=== PATIENT | male | born 1935 | race Caucasian/White ===

== ENCOUNTER 2017-04-09 20:09 | Inpatient (IN) | payer MEDICARE ==
[2017-04-09 20:52] VITALS: BMI 18.6
[2017-04-09] MEDS: Metoprolol Succinate 50 mg XL Tab PO SCH (22:13)
[2017-04-09] MEDS ORDERED: Influenza Vaccine 60 mcg/0.5 mL SYR (4YR UP) IM ONE (23:48)
[2017-04-09] MEDS ORDERED: Pneumococcal 23-Valent Vaccine IM ONE (23:48)
[2017-04-10] MEDS ORDERED: Pantoprazole 40 mg EC Tab PO SCH (06:00)
[2017-04-10] MEDS: Pantoprazole 40 mg EC Tab PO SCH (06:19)
[2017-04-10] MEDS: Magnesium Oxide 400 mg Tab UD PO SCH ×3 (09:38→18:11)
[2017-04-10] MEDS ORDERED: cefTRIAXone 1 gm 1 GM/100 ML BAG IVPB SCH (10:00)
[2017-04-10] MEDS: Metoprolol Succinate 50 mg XL Tab PO SCH (21:29)
[2017-04-11] MEDS: Pantoprazole 40 mg EC Tab PO SCH (05:03)
[2017-04-11] MEDS: cefTRIAXone 1 gm 1 GM/100 ML BAG IVPB SCH (05:04)
[2017-04-11 09:21] LABS: BASO # 0.02 K/mm3 (0.0-2.0); BASO % 0.4 % (0.0-3.0); EOS # 0.4 (0.0-0.7); EOS % 7.4 % (1.5-5.0); GRAN # 3.51 (1.4-6.5); GRAN % 64.6 % (50.0-68.0); HEMATOCRIT 27.2 % (42.0-52.0); LYMPH # 1.1 (1.2-3.4); LYMPH % 20.4 % (22.0-35.0); MEAN CELL VOLUME 100.7 fl (80.0-105.0); MEAN CORPUSCULAR HGB CONC 32.7 g/dl (31.0-37.0); MONO # 0.4 (0.1-0.6); MONO % 7.2 % (1.0-6.0); RED CELL DISTRIBUTION WIDTH 13.3 % (11.5-14.5); WHITE BLOOD COUNT 5.4 10^3/ul (4.5-11.0)
[2017-04-11 09:26] LABS: INR 1.88 (0.93-1.08)
[2017-04-11 09:31] LABS: ALB/GLOB RATIO 0.8 (1.1-1.8); ALKALINE PHOSPHATASE 83 U/L (38-126); ALT/SGPT 31 U/L (7-56); AST/SGOT 41 U/L (17-59); BILIRUBIN,TOTAL 0.4 mg/dL (0.2-1.3); BLOOD UREA NITROGEN 9 mg/dL (7-21); CALCIUM 8.6 mg/dL (8.4-10.5); CARBON DIOXIDE 24 mmol/L (21-33); CHLORIDE 106 mmol/L (98-107); GFR AFRICAN-AMERICAN > 60; GLUCOSE,RANDOM 182 mg/dL (70-110); SODIUM 136 mmol/L (132-148); TOTAL PROTEIN 6.7 g/dL (5.8-8.3)
--- NOTE | 2017-04-11 09:41 | CP.PCM.CON ---
<Rashida Nash - Last Filed: 04/11/17 09:55> History of Present Illness - History of Present Illness History of Present Illness: 81 y/o male with PMHx of HTN, COPD, HLD and gastritis seen at bedside for elongated dystrophic toenails. Pt states he is in the hospital because he had swelling in his right leg and found out he had a clot in his veins. Pt states he was not having any pain in the right leg but had swelling for multiple weeks , and his daughter brought him in. Pt denies any discomfort now and says the swelling is improving. Pt states the toenails are somewhat painful, mainly when he has shoes on that press against them. Pt denies F/C/N/V/CP/SOB. PSH: denies All: NKDA Social: 1 pack cigs/day; daily EtOH drinker; denies illicit drug use Review of Systems - Review of Systems All systems: reviewed and no additional remarkable complaints except (per HPI) Past Patient History - Infectious Disease Hx of Infectious Diseases: None - Tetanus Immunizations Tetanus Immunization: Unknown - Past Social History Smoking Status: Heavy Smoker > 10 Cigarettes Daily - CARDIAC Hx Hypertension: Yes - PULMONARY Hx Chronic Obstructive Pulmonary Disease (COPD): Yes - NEUROLOGICAL Hx Neurological Disorder: No - HEENT Hx Cataracts: Yes - RENAL Hx Chronic Kidney Disease: No - ENDOCRINE/METABOLIC Hx Endocrine Disorders: No - HEMATOLOGICAL/ONCOLOGICAL Hx Blood Disorders: No Hx Blood Transfusions: No Hx Blood Transfusion Reaction: No - INTEGUMENTARY Hx Dermatological Problems: No - MUSCULOSKELETAL/RHEUMATOLOGICAL Hx Falls: No - GASTROINTESTINAL Hx Gastrointestinal Disorders: No - GENITOURINARY/GYNECOLOGICAL Hx Prostate Problems: Yes - PSYCHIATRIC Hx Depression: Yes Hx Substance Use: No - SURGICAL HISTORY Hx Surgeries: Yes (Prostate) - ANESTHESIA Hx Anesthesia Reactions: No Hx Malignant Hyperthermia: No Meds Allergies/Adverse Reactions: Allergies Allergy/AdvReac Type Severity Reaction Status Date / Time No Known Allergies Allergy Verified 04/09/17 20:46 - Medications Medications: Current Medications Atorvastatin Calcium (Lipitor) 20 mg PO DIN [facility] Last Admin: 04/10/17 18:11 Dose: 20 mg Azithromycin (Zithromax) 500 mg PO DAILY [facility] PRN Reason: Protocol Last Admin: 04/10/17 11:51 Dose: 500 mg Chlordiazepoxide (Librium) 10 mg PO Q8H PRN; Protocol PRN Reason: Anxiety Famotidine (Pepcid) 20 mg PO DAILY [facility] Last Admin: 04/10/17 09:39 Dose: 20 mg Ceftriaxone Sodium (Rocephin 1 Gram Ivpb) 1 gm in 100 mls @ 200 mls/hr IVPB 0600 [facility] PRN Reason: Protocol Last Admin: 04/11/17 05:04 Dose: 200 mls/hr Lisinopril (Zestril) 10 mg PO QAM [facility] Last Admin: 04/10/17 09:40 Dose: 10 mg Magnesium Oxide (Mag-Ox) 400 mg PO TID [facility] Last Admin: 04/10/17 18:11 Dose: 400 mg Metoprolol Succinate (Toprol Xl) 50 mg PO HS [facility] Last Admin: 04/10/17 21:29 Dose: 50 mg Nicotine (Nicoderm Cq) 1 patch TD DAILY [facility] Last Admin: 04/10/17 09:38 Dose: 1 patch Pantoprazole Sodium (Protonix Ec Tab) 40 mg PO 0600 [facility] Last Admin: 04/11/17 05:03 Dose: 40 mg Thiamine HCl (Vitamin B1 Tab) 100 mg PO DAILY [facility] Last Admin: 04/10/17 09:40 Dose: 100 mg Warfarin Sodium (Coumadin) 10 mg PO 1800 [facility] PRN Reason: Protocol Last Admin: 04/10/17 18:11 Dose: 10 mg Physical Exam - Constitutional Appears: Well, Non-toxic, No Acute Distress - Extremities Exam Additional comments: Lower extremity focused examination: Vasc: DP/PT pulses palpable 2/4 B/L. Temperature gradient warm to warm on R, warm to cool on L. CFT < 3 sec to all digits. +2 pitting edema noted to RLE; no edema noted to LLE Derm: Elongated dystrophic toenails x 10. No open lesions, no maceration, no erythema. Neuro: Protective sensation grossly intact MSK: Mild tenderness noted on palpation of toenails. No tenderness elicited on RLE calf squeeze or edema assessment. - Neurological Exam Neurological exam: Alert, Oriented x3 - Psychiatric Exam Psychiatric exam: Normal Affect, Normal Mood Results - Vital Signs Recent Vital Signs: Last Vital Signs Temp 97.4 F L 04/10/17 15:50 Pulse 74 04/10/17 21:29 Resp 20 04/10/17 15:50 BP 147/80 04/10/17 21:29 Pulse Ox 93 L 04/10/17 15:50 - Labs Result Diagrams: 04/11/17 09:00 04/11/17 09:00 Labs: Laboratory Results - last 24 hr 04/11/17 04/11/17 04/11/17 09:00 09:00 09:00 WBC 5.4 D RBC 2.70 L Hgb 8.9 L Hct 27.2 L MCV 100.7 MCH 33.0 MCHC 32.7 RDW 13.3 Plt Count 109 L MPV 10.0 Gran % 64.6 Lymph % (Auto) 20.4 L [place] % (Auto) 7.2 H Eos % (Auto) 7.4 H Baso % (Auto) 0.4 Gran # 3.51 Lymph # 1.1 L [place] # 0.4 Eos # 0.4 Baso # 0.02 PT 20.9 H INR 1.88 H Sodium 136 Potassium 4.0 Chloride 106 Carbon Dioxide 24 Anion Gap 10 BUN 9 Creatinine 1.0 Est GFR ( Amer) > 60 Est GFR (Non-Af Amer) > 60 Random Glucose 182 H Calcium 8.6 Total Bilirubin 0.4 AST 41 ALT 31 Alkaline Phosphatase 83 Total Protein 6.7 Albumin 3.0 Globulin 3.8 Albumin/Globulin Ratio 0.8 L Assessment & Plan - Assessment and Plan (Free Text) Assessment: 81 y/o male with PMHx of COPD, HTN, HLD, gastritis and currently in house for DVT on blood thinners seen at bedside for elongated dystrophic mildly painful toenails Plan: Pt seen and evaluated at bedside with attending Dr. Pham Labs and vitals reviewed- afebrile, WBC 5.4 Aseptic debridement of elongated dystrophic toenails with sterile nippers Pt tolerated procedure without incident Podiatry to sign off at this time Please re-consult again as needed Thank you for this consult <Van Pham - Last Filed: 04/15/17 11:24> Results - Vital Signs Recent Vital Signs: Last Vital Signs Temp 97.9 F 04/14/17 06:00 Pulse 76 04/14/17 06:00 Resp 16 04/14/17 06:00 BP 152/71 H 04/14/17 06:00 Pulse Ox 98 04/14/17 06:00 - Labs Result Diagrams: 04/12/17 06:00 04/11/17 09:00 Attending/Attestation - Attestation I have personally seen and examined this patient.: Yes I have fully participated in the care of the patient.: Yes I have reviewed all pertinent clinical information: Yes
[2017-04-11] MEDS: Magnesium Oxide 400 mg Tab UD PO SCH ×3 (10:23→17:03)
[2017-04-11] MEDS: Metoprolol Succinate 50 mg XL Tab PO SCH (21:40)
--- NOTE | 2017-04-11 23:23 | PN ---
DATE: SUBJECTIVE: The patient is an 81-year-old, seen and examined, lying in bed, seems to be comfortable. No nausea or vomiting. No diarrhea. Eating and tolerating. PHYSICAL EXAMINATION VITAL SIGNS: The patient is afebrile, pulse 72, respirations 18 and blood pressure 144/77. LUNGS: Bilateral fair airflow. No rhonchi or crackle. HEART: S1 and S2 audible. ABDOMEN: Soft and nontender. No rebound. No guarding. NEUROLOGIC: The patient is awake, alert, oriented, and communicative. Right leg swelling and redness has significantly improved. LABORATORY DATA: WBC is 5.4, hemoglobin 8.9, hematocrit 27 and platelet is 109. PT 20.9 and INR 1.88. Chemistry; sodium 136, potassium 4, chloride 106, CO2 of 24, BUN 9, creatinine 1 and blood sugar of 182. ASSESSMENT: 1. Right leg cellulitis. 2. Right leg iliofemoral deep vein thrombosis. 3. Anemia. 4. Thrombocytopenia. 5. Hypertension. PLAN: Currently, the patient is on Coumadin as per his daughter's request and she did not like any new agents like Eliquis or Pradaxa. We will continue him on Nicoderm patch and continue on p.o. Protonix. He is on IV antibiotics we will continue that and we will follow up with PT/INR in a.m. Aquilino Garcia MD
[2017-04-12] MEDS: cefTRIAXone 1 gm 1 GM/100 ML BAG IVPB SCH (05:52)
[2017-04-12] MEDS: Pantoprazole 40 mg EC Tab PO SCH (05:52)
[2017-04-12 07:11] LABS: BASO # 0.02 K/mm3 (0.0-2.0); BASO % 0.3 % (0.0-3.0); EOS # 0.4 (0.0-0.7); EOS % 7.4 % (1.5-5.0); GRAN # 3.31 (1.4-6.5); GRAN % 56.6 % (50.0-68.0); HEMATOCRIT 25.5 % (42.0-52.0); LYMPH # 1.4 (1.2-3.4); LYMPH % 23.5 % (22.0-35.0); MEAN CELL VOLUME 99.2 fl (80.0-105.0); MEAN CORPUSCULAR HEMOGLOBIN 32.7 pg (25.0-35.0); MEAN CORPUSCULAR HGB CONC 32.9 g/dl (31.0-37.0); MEAN PLATELET VOLUME 9.9 fl (7.0-11.0); MONO # 0.7 (0.1-0.6); MONO % 12.2 % (1.0-6.0); RED CELL DISTRIBUTION WIDTH 13.5 % (11.5-14.5); WHITE BLOOD COUNT 5.8 10^3/ul (4.5-11.0)
[2017-04-12 07:12] LABS: IRON 46 ug/dL (45-180)
[2017-04-12 07:21] LABS: INR 2.67 (0.93-1.08)
[2017-04-12] MEDS: Magnesium Oxide 400 mg Tab UD PO SCH ×3 (10:00→17:14)
--- NOTE | 2017-04-12 21:27 | CP.PCM.PN ---
Subjective - Date & Time of Evaluation Date of Evaluation: 04/12/17 Time of Evaluation: 10:00 - Subjective Subjective: DATE: 04/12/2017 HISTORY OF PRESENT ILLNESS: Mr. Espitia is an 81-year-old male admitted to the hospital with right leg DVT. He has history of heavy smoking and alcohol abuse. He is noncompliant. He is currently on Eliquis 5 mg p.o. b.i.d. He also has left upper lobe nodule, which is stable at 4.5 cm. He is in rehab for deconditioning and gait improvement. Pain right leg, swelling decreased. PAST MEDICAL HISTORY: Alcohol abuse, heavy smoker, COPD, BPH, and depression. PAST SURGICAL HISTORY: Prostatectomy. ALLERGIES: NO KNOWN DRUG ALLERGIES. REVIEW OF SYSTEMS: As per HPI. Rest of 12-point review of systems reviewed and negative. MEDICATIONS: B12 1 mg daily, Coumadin 4 mg daily, thiamine 100 mg daily, Protonix 40 mg daily, nicotine patch, metoprolol 50 mg p.o. at bedtime, lisinopril 10 mg daily, Pepcid 20 mg daily, Zithromax 500 mg p.o. daily, and Lipitor 20 mg daily. PHYSICAL EXAMINATION GENERAL: Comfortable in bed, in no acute distress. VITAL SIGNS: reviewed. HEENT: Normal. CHEST: Air entry present, equal bilaterally. No added sounds. CARDIOVASCULAR: S1 and S2 normal. No murmur. No gallop. ABDOMEN: Soft and nontender. No hepatosplenomegaly. EXTREMITIES: No edema. Right leg swelling is present. CENTRAL NERVOUS SYSTEM: Alert and oriented x3. No focal, sensory, or motor deficit. ASSESSMENT: Right lower extremity deep venous thrombosis, hypercoagulable state, alcohol abuse, and hypertension. PLAN: He is currently on Coumadin. INR therapeutic. Coumadin 4 mg daily. Great improvement, physical therapy on going. Hypercoagulable workup will be ordered. He has pneumonia, right middle lobe. He is currently on Zithromax. He is currently also on B12 and pyridoxine. Thank you Dr. Garcia for allowing us to participate in his care. Maria Esther Art MD Objective - Vital Signs/Intake and Output Vital Signs (last 24 hours): Temp Pulse Resp BP Pulse Ox 97.8 F 74 18 157/77 H 96 04/12/17 16:13 04/12/17 16:13 04/12/17 16:13 04/12/17 16:13 04/12/17 16:13 - Medications Medications: Current Medications Atorvastatin Calcium (Lipitor) 20 mg PO DIN [facility] Last Admin: 04/12/17 17:14 Dose: 20 mg Azithromycin (Zithromax) 500 mg PO DAILY [facility] PRN Reason: Protocol Last Admin: 04/12/17 10:01 Dose: 500 mg Famotidine (Pepcid) 20 mg PO DAILY [facility] Last Admin: 04/12/17 10:00 Dose: 20 mg Ceftriaxone Sodium (Rocephin 1 Gram Ivpb) 1 gm in 100 mls @ 200 mls/hr IVPB 0600 [facility] PRN Reason: Protocol Last Admin: 04/12/17 05:52 Dose: 200 mls/hr Lisinopril (Zestril) 10 mg PO QAM [facility] Last Admin: 04/12/17 10:01 Dose: 10 mg Magnesium Oxide (Mag-Ox) 400 mg PO TID [facility] Last Admin: 04/12/17 17:14 Dose: 400 mg Metoprolol Succinate (Toprol Xl) 50 mg PO HS [facility] Last Admin: 04/11/17 21:40 Dose: 50 mg Nicotine (Nicoderm Cq) 1 patch TD DAILY [facility] Last Admin: 04/12/17 10:00 Dose: 1 patch Pantoprazole Sodium (Protonix Ec Tab) 40 mg PO 0600 [facility] Last Admin: 04/12/17 05:52 Dose: 40 mg Thiamine HCl (Vitamin B1 Tab) 100 mg PO DAILY [facility] Last Admin: 04/12/17 10:00 Dose: 100 mg Warfarin Sodium (Coumadin) 4 mg PO 1800 [facility] PRN Reason: Protocol Last Admin: 04/12/17 17:14 Dose: 4 mg - Labs Labs: 04/12/17 06:00 04/11/17 09:00 PT 30.0 SECONDS (9.4-12.5) H 04/12/17 06:00 INR 2.67 (0.93-1.08) H 04/12/17 06:00
[2017-04-12] MEDS: Metoprolol Succinate 50 mg XL Tab PO SCH (21:47)
[2017-04-13] MEDS: Pantoprazole 40 mg EC Tab PO SCH (05:21)
[2017-04-13] MEDS: cefTRIAXone 1 gm 1 GM/100 ML BAG IVPB SCH (05:21)
--- NOTE | 2017-04-13 08:14 | HP ---
HISTORY OF PRESENT ILLNESS: The patient is an 81-year-old, transferred to TCU to finish his course of antibiotics, monitor his Coumadin level. The patient was admitted because of right leg swelling, redness. He was sent for leg Doppler, was found to have DVT, extensive iliofemoral DVT, so he was admitted for anticoagulation and antibiotic. PAST MEDICAL HISTORY: Hypertension, chronic alcohol abuse and active smoker. ALLERGIES: NOT ALLERGIC TO ANY MEDICATION. MEDICATIONS AT HOME: He is on omeprazole 40 mg daily, metoprolol 50 mg at bedtime, lisinopril 10 mg daily. SOCIAL HISTORY: He is single. Heavy smoker and drinker. He drinks half to one bottle of wine everyday. REVIEW OF SYSTEMS: Generalized weakness. Right leg swelling seems to be improving. PHYSICAL EXAMINATION: VITAL SIGNS: He is afebrile, pulse 71, respirations 20, blood pressure 122/75. LUNGS: Bilateral good airflow. No rhonchi or crackles. HEART: S1 and S2 audible. ABDOMEN: Soft, nontender. No rebound, and no guarding. NEUROLOGIC: He is awake, alert, oriented, and communicative. EXTREMITIES: Right leg swelling has significantly improved. Edema seems to be improving. ASSESSMENT: 1. Right leg deep vein thrombosis. 2. Right leg cellulitis. 3. History of chronic low back pain in the family, daughter is on Coumadin. 4. Hypertension. 5. Active smoker. PLAN: We will follow up CBC, CMP and PT/INR in the a.m. Encourage ambulation. We will follow up. Aquilino Garcia MD
[2017-04-13] MEDS: Magnesium Oxide 400 mg Tab UD PO SCH ×4 (10:03→17:43)
--- NOTE | 2017-04-13 14:51 | PN ---
DATE: SUBJECTIVE: The patient is 81 years old, seen and examined, lying in bed, seems to be comfortable. No nausea or vomiting. No diarrhea. No fever. No chills. No cough, congestion. PHYSICAL EXAMINATION VITAL SIGNS: He is afebrile, pulse 77, respirations 18, blood pressure 148/71. LUNGS: Bilateral fair airflow. No rhonchi or crackle. HEART: S1 and S2 audible. ABDOMEN: Soft, nontender. No rebound, no guarding. NEUROLOGICAL: He is awake, alert, oriented, and communicative. EXTREMITIES: Bilateral leg edema is significantly improved. redness has improved. ASSESSMENT: 1. Right leg iliofemoral deep vein thrombosis. 2. Right leg cellulitis. 3. Hypertension. 4. Alcohol abuse. PLAN: We will continue patient on 4 mg of Coumadin and I will follow up PT/INR in a.m. Discharge plan for a.m. We will finish his course of antibiotic by a.m. I will follow up in office in a week. Aquilino Garcia MD
[2017-04-13 16:50] VITALS: O2SAT 98
[2017-04-14] MEDS: cefTRIAXone 1 gm 1 GM/100 ML BAG IVPB SCH (05:54)
[2017-04-14] MEDS: Pantoprazole 40 mg EC Tab PO SCH (05:56)
[2017-04-14 06:36] VITALS: BP 152/71; PULSE 76; RESP 16; TEMP 97.9
[2017-04-14] MEDS ORDERED: Metoprolol Succinate 50 mg XL Tab PO SCH ×2 (08:00→10:00)
[2017-04-14] MEDS: Magnesium Oxide 400 mg Tab UD PO SCH ×2 (10:03→13:09)
--- NOTE | 2017-04-15 00:38 | DS ---
HISTORY OF PRESENT ILLNESS: The patient is an 81-year-old, seen and examined, doing well, anxious to go home. He was initially admitted because of right leg swelling. He was found to have extensive DVT in iliofemoral area, has been on Coumadin and also was found to have bilateral infiltrates, was given IV antibiotic, did well, being discharged home today. PHYSICAL EXAMINATION: GENERAL: Awake, alert, oriented, and communicative. VITAL SIGNS: He is afebrile. Pulse 76, respiration 16, and blood pressure 152/71. LUNGS: Bilateral fair air flow. No rhonchi or crackles. HEART: S1, S2 audible. ABDOMEN: Soft, nontender. No rebound. No guarding. NEUROLOGIC: He is awake, alert, oriented, and communicative. LABORATORY DATA: We do not have today's PT/INR. He is advised to follow up in the office on Thursday. We will follow up his PT/INR. ASSESSMENT: 1. Right leg occlusive iliofemoral deep vein thrombosis. 2. Hypertension. 3. Hyperlipidemia. 4. History of alcohol abuse. PLAN: The patient is being discharged home on 4 mg of Coumadin daily. He will continue all his medication as prior to admission. Aquilino Garcia MD
== END 2017-04-14 14:11 | disposition home or self-care (01) | DRG 300 ==
LOC: TRCU 20:09
PROVIDERS: ADMIT Internal Medicine; ATTEND Internal Medicine
PROC: 0HBRXZZ Excision of Toe Nail, External Approach (ICD-10-PCS; principal; 2017-04-11)
PROC: 0HBRXZZ Excision of Toe Nail, External Approach (ICD-10-PCS; 2017-04-11)
PROC: 0HBRXZZ Excision of Toe Nail, External Approach (ICD-10-PCS; 2017-04-11)
PROC: 0HBRXZZ Excision of Toe Nail, External Approach (ICD-10-PCS; 2017-04-11)
PROC: 0HBRXZZ Excision of Toe Nail, External Approach (ICD-10-PCS; 2017-04-11)
PROC: 0HBRXZZ Excision of Toe Nail, External Approach (ICD-10-PCS; 2017-04-11)
PROC: 0HBRXZZ Excision of Toe Nail, External Approach (ICD-10-PCS; 2017-04-11)
PROC: 0HBRXZZ Excision of Toe Nail, External Approach (ICD-10-PCS; 2017-04-11)
PROC: 0HBRXZZ Excision of Toe Nail, External Approach (ICD-10-PCS; 2017-04-11)
PROC: 0HBRXZZ Excision of Toe Nail, External Approach (ICD-10-PCS; 2017-04-11)
DX: I82.421 Acute embolism and thrombosis of right iliac vein (principal); L03.115 Cellulitis of right lower limb; D68.59 Other primary thrombophilia; D69.6 Thrombocytopenia, unspecified; J44.9 Chronic obstructive pulmonary disease, unspecified; E78.5 Hyperlipidemia, unspecified; I10 Essential (primary) hypertension; F10.10 Alcohol abuse, uncomplicated; F17.200 Nicotine dependence, unspecified, uncomplicated; N40.0 Benign prostatic hyperplasia without lower urinary tract symptoms; R91.1 Solitary pulmonary nodule; D64.9 Anemia, unspecified; Z79.01 Long term (current) use of anticoagulants; Z79.899 Other long term (current) drug therapy; Z91.19 Patient's noncompliance with other medical treatment and regimen; H26.9 Unspecified cataract; F32.89 Other specified depressive episodes; L60.3 Nail dystrophy; Z90.79 Acquired absence of other genital organ(s)

== ENCOUNTER 2018-01-04 13:49 | Inpatient (IN) | payer MEDICARE ==
[2018-01-04 14:16] VITALS: BMI 17.2
--- NOTE | 2018-01-04 14:50 | ED PDOC ---
Arrival/HPI - General Chief Complaint: Lower Extremity Problem/Injury Time Seen by Provider: 01/04/18 14:20 Historian: Patient - History of Present Illness Narrative History of Present Illness (Text): 01/04/18 14:46 Patient is a 82 year old male with a past medical history of hypertension, COPD , gastritis and hx of DVT (04/2017 - on coumadin) presenting with 2 week hx of progressive swelling/erythema of right lower extremity. Patient developed clear , liquid filled blisters approximately the size of a quarter on the lower portion of his leg yesterday. He decided to come to the emergency room today after his leg started sweeping fluid this morning. He was started on coumadin in April 2017 for a first time lower extremity DVT. He reports taking his medication every day but has not had an INR check for 2 months. He has no other complaints today. Denies fevers, chills, nausea, vomiting, chest pain, shortness of breath, dyspnea on exertion, numbness or tingling. PMD: Dr. Garcia Time/Duration: < week (2 weeks) Symptom Onset: Gradual Symptom Course: Worsening Quality: Pressure Past Medical History - Provider Review Nursing Documentation Reviewed: Yes - Infectious Disease Hx of Infectious Diseases: None - Tetanus Immunization Tetanus Immunization: Unknown - Cardiac Hx Cardiac Disorders: Yes Hx Hypertension: Yes - Pulmonary Hx Respiratory Disorders: Yes Hx Chronic Obstructive Pulmonary Disease (COPD): Yes - Neurological Hx Neurological Disorder: No - HEENT Hx HEENT Disorder: Yes Hx Cataracts: Yes - Renal Hx Renal Disorder: No - Endocrine/Metabolic Hx Endocrine Disorders: No - Hematological/Oncological Hx Blood Disorders: No - Integumentary Hx Dermatological Disorder: No - Musculoskeletal/Rheumatological Hx Musculoskeletal Disorders: No - Gastrointestinal Hx Gastrointestinal Disorders: No - Genitourinary/Gynecological Hx Genitourinary Disorders: Yes Hx Prostate Problems: Yes - Psychiatric Hx Psychophysiologic Disorder: Yes Hx Depression: Yes Hx Substance Use: No - Past Surgical History Past Surgical History: No Previous - Anesthesia Hx Anesthesia Reactions: No Hx Malignant Hyperthermia: No - Suicidal Assessment Feels Threatened In Home Enviroment: No Family/Social History - Physician Review Nursing Documentation Reviewed: Yes Family/Social History: Unknown Family HX Smoking Status: Heavy Smoker > 10 Cigarettes Daily Hx Alcohol Use: Yes Frequency of alcohol use: Socially Hx Substance Use: No Hx Substance Use Treatment: No Allergies/Home Meds Allergies/Adverse Reactions: Allergies No Known Allergies Allergy (Verified 04/09/17 20:46) Home Medications: Home Meds Medication Instructions Recorded Confirmed Ezetimibe/Simvastatin [Vytorin 10 1 tab PO DAILY 03/16/12 04/09/17 mg-40 mg] Lisinopril 10 mg PO QAM 03/16/12 04/09/17 Metoprolol Succinate 50 mg PO QAM 03/16/12 04/09/17 Omeprazole 40 mg PO QAM 03/16/12 04/09/17 Review of Systems - Physician Review All systems were reviewed & negative as marked: Yes - Review of Systems Constitutional: Normal. absent: Fevers Respiratory: Normal. absent: SOB, Cough Cardiovascular: Edema (R leg only), Calf Pain (Right leg). absent: Chest Pain, Palpitations Gastrointestinal: Normal. absent: Abdominal Pain Skin: Other (multiple blisters on right leg, erythema on right leg) Neurological: Normal. absent: Headache, Focal Weakness Psychiatric: Normal Physical Exam Vital Signs Reviewed: Yes Vital Signs Temp Pulse Resp BP Pulse Ox 01/04/18 17:25 98.2 F 85 18 137/69 100 01/04/18 16:13 88 18 124/60 100 01/04/18 14:16 98.3 F 102 H 19 110/61 98 Temperature: Afebrile Blood Pressure: Normal Pulse: Regular (HR 92 on monitor) Respiratory Rate: Normal Appearance: Positive for: Well-Appearing, Non-Toxic, Comfortable Pain Distress: None Mental Status: Positive for: Alert and Oriented X 3 - Systems Exam Head: Present: Atraumatic, Normocephalic Conjunctiva: Present: Normal Nose (External): Present: Atraumatic Respiratory/Chest: Present: Clear to Auscultation, Good Air Exchange. No: Respiratory Distress, Accessory Muscle Use, Wheezes, Rales, Rhonchi, Tachypneic Cardiovascular: Present: Regular Rate and Rhythm, Normal S1, S2. No: Murmurs Abdomen: Present: Other (chronic skin discoloration in suprapubic region). No: Tenderness, Distention, Peritoneal Signs Lower Extremity: Present: Edema (R leg 2+), CALF TENDERNESS (right), Raman's Sign (right side), Tenderness (right foot), Swelling, Erythema, Other (clear fluid filled blisters on right leg, ). No: NORMAL PULSES (Doppler on right +DP , no PT; Doppler on left +AT, +PT), Temperature Abnormalties Neurological: Present: GCS=15, Speech Normal, Motor Func Grossly Intact Skin: Present: Warm, Dry, Normal Color, Other (other than right extremity ) Psychiatric: Present: Alert, Oriented x 3, Normal Insight, Normal Concentration Medical Decision Making ED Course and Treatment: 01/04/18 15:21 Right LE appears swollen and erythematous. Venous US to r/o DVT. Arterial US due to negative doppler of PT on exam. Labs. No pain medication indicated at this time. Patient comfortable at rest. 01/04/18 16:21 Venous US no DVT. Arterial US not able to be performed due to blisters on leg. Elevated WBC - tachy - Code Sepsis called Started on Vanco and Zosyn Discussed case with Dr. Garcia - accepted patient for admission on to there service. - Lab Interpretations Lab Results: 01/04/18 15:00 01/04/18 15:00 Lab Results 01/04/18 15:39: pO2 42, VBG pH 7.31 L, VBG pCO2 44.0, VBG HCO3 22.2, VBG Total CO2 23.6, VBG O2 Sat (Calc) 79.9 H, VBG Base Excess -4.1 L, VBG Potassium 4.2, Glucose 194 H, Lactate 3.1 H, FiO2 21.0, Sodium 137.0, Chloride 107.0, Venous Blood Potassium 4.2 01/04/18 15:00: Sodium 139, Potassium 4.1, Chloride 104, Carbon Dioxide 22, Anion Gap 17, BUN 43 H, Creatinine 2.8 H, Est GFR ( Amer) 26, Est GFR ( Non-Af Amer) 22, Random Glucose 192 H, Calcium 8.9, Total Bilirubin 0.5, AST 20 , ALT 9, Alkaline Phosphatase 104, Total Protein 7.5, Albumin 3.4, Globulin 4.1 , Albumin/Globulin Ratio 0.8 L 01/04/18 15:00: PT 14.0 H, INR 1.22, APTT 36.2 01/04/18 15:00: WBC 20.8 H D, RBC 2.57 L, Hgb 8.0 L, Hct 24.0 L, MCV 93.4 D, MCH 31.1, MCHC 33.3, RDW 14.1, Plt Count 161, MPV 9.5, Gran % 89.7 H, Lymph % ( Auto) 5.2 L, [place] % (Auto) 5.0, Eos % (Auto) 0.1 L, Baso % (Auto) 0.0, Gran # 18.62 H, Lymph # (Auto) 1.1 L, [place] # (Auto) 1.0 H, Eos # (Auto) 0.0, Baso # ( Auto) 0.01 I have reviewed the lab results: Yes Interpretation: Abnormal lab values - RAD Interpretation Narrative RAD Interpretations (Text): 01/04/18 18:21 Accession No. : [id number] Patient Name / ID : SHREE CORONA / [id number] Exam Date : 01/04/2018 15:16:58 ( Approved ) Study Comment : Sex / Age : M / [id number] Creator : Silver Arredondo MD Dictator : Silver Arredondo MD Hair Clipper Power : Global Climate Change Researcher : Silver Arredondo MD Approver2 : Report Date : 01/04/2018 17:42:51 My Comment : PROCEDURE: Right lower extremity venous US HISTORY: Leg pain and swelling. Evaluate for DVT. PHYSICIAN(S): Silver Dempsey M.D. TECHNIQUE: Duplex sonography and color-flow Doppler with graded compression were used to evaluate the deep venous system of the right lower extremity. FINDINGS: The visualized deep venous system of the right lower extremity is sonographically normal and compressible. Normal waveforms and augmentation are seen. There is no sonographic evidence for deep venous thrombosis in the visualized segments of the right lower extremity. IMPRESSION: 1. No sonographic evidence for deep venous thrombosis in the visualized segments of the right lower extremity. Radiology Orders: 01/04/18 14:45 DUPLEX LOWER EXTRM VEIN RIGHT [US] Stat Maintenance Mechanic Elevators: Radiologist - Medication Orders Current Medication Orders: Discontinued Medications Sodium Chloride (Sodium Chloride 0.9%) 500 mls @ 999 mls/hr IV .Q31M STA Stop: 01/04/18 15:55 Last Admin: 01/04/18 16:05 Dose: 999 mls/hr eMAR Start Stop Document 01/04/18 16:05 HI (Rec: 01/04/18 16:05 OK [id number]) Intravenous Solution Start Date 01/04/18 Start Time 16:05 End Date 01/04/18 End time 16:43 Total Infusion Time 38 Vancomycin HCl (Vancomycin 500mg In Ns) 500 mg in 100 mls @ 200 mls/hr IVPB STAT STA PRN Reason: Protocol Stop: 01/04/18 15:54 Last Admin: 01/04/18 16:04 Dose: 200 mls/hr eMAR Start Stop Document 01/04/18 16:04 HI (Rec: 01/04/18 16:04 OK [id number]) Intravenous Solution Start Date 01/04/18 Start Time 16:04 Sodium Chloride (Sodium Chloride 0.9%) 500 mls @ 999 mls/hr IV .Q31M STA Stop: 01/04/18 16:09 Last Admin: 01/04/18 16:05 Dose: 999 mls/hr eMAR Start Stop Document 01/04/18 16:05 HI (Rec: 01/04/18 16:05 [id number] Intravenous Solution Start Date 01/04/18 Start Time 16:05 Piperacillin Sod/Tazobactam Sod (Zosyn 2.25 Gm In 0.9% 100 Ml) 2.25 gm in 100 mls @ 200 mls/hr IVPB STAT ONE Stop: 01/04/18 16:44 Piperacillin Sod/Tazobactam Sod (Zosyn 2.25 Gm In 0.9% 100 Ml) 2.25 gm in 100 mls @ 200 mls/hr IVPB STAT ONE Stop: 01/04/18 16:44 Last Admin: 01/04/18 16:50 Dose: 200 mls/hr eMAR Start Stop Document 01/04/18 16:50 HI (Rec: 01/04/18 16:50 OK [id number]) Intravenous Solution Start Date 01/04/18 Start Time 16:50 Disposition/Present on Arrival - Present on Arrival Any Indicators Present on Arrival: Yes History of DVT/PE: Yes History of Uncontrolled Diabetes: No Urinary Catheter: No History of Decub. Ulcer: No History Surgical Site Infection Following: None - Disposition Have Diagnosis and Disposition been Completed?: Yes Diagnosis: Cellulitis Disposition: HOSPITALIZED Disposition Time: 16:03 Patient Plan: Admission Patient Problems: Current Active Problems Problem Status Onset Cellulitis Acute Condition: GUARDED
[2018-01-04 15:20] LABS: BASO # 0.01 K/mm3 (0.0-2.0); EOS % 0.1 % (1.5-5.0); GRAN # 18.62 (1.4-6.5); GRAN % 89.7 % (50.0-68.0); LYMPH # 1.1 (1.2-3.4); LYMPH % 5.2 % (22.0-35.0); MEAN CELL VOLUME 93.4 fl (80.0-105.0); MEAN CORPUSCULAR HEMOGLOBIN 31.1 pg (25.0-35.0); MEAN CORPUSCULAR HGB CONC 33.3 g/dl (31.0-37.0); MEAN PLATELET VOLUME 9.5 fl (7.0-11.0); RBC 2.57 10^6/uL (3.5-6.1); RED CELL DISTRIBUTION WIDTH 14.1 % (11.5-14.5); WHITE BLOOD COUNT 20.8 10^3/ul (4.5-11.0)
[2018-01-04 15:24] LABS: INR 1.22; PARTIAL THROMBOPLASTIN TIME 36.2 Seconds (25.1-36.5)
[2018-01-04 15:25] LABS: ALB/GLOB RATIO 0.8 (1.1-1.8); ALBUMIN 3.4 g/dL (3.0-4.8); CALCIUM 8.9 mg/dL (8.4-10.5)
[2018-01-04] MEDS ORDERED: Sodium Chloride 0.9% 500 ML IV STA ×2 (15:25→15:39)
[2018-01-04] MEDS ORDERED: Vancomycin 500mg in NS 500 MG/100 ML BAG IVPB STA (15:25)
[2018-01-04 15:44] LABS: VENOUS BLOOD GAS BASE EXCESS -4.1 mmol/L (0.0-2.0); VENOUS BLOOD GAS PO2 42 mm/Hg (30-55); VENOUS BLOOD PH 7.31 (7.32-7.43)
[2018-01-04] MEDS ORDERED: Piperacillin/Tazobact 2.25gm 2.25 GM/100 ML BAG IVPB ONE ×2 (16:15)
--- NOTE | 2018-01-04 17:44 | US ---
PROCEDURE: Right lower extremity venous US HISTORY: Leg pain and swelling. Evaluate for DVT. PHYSICIAN(S): Silver Dempsey M.D. TECHNIQUE: Duplex sonography and color-flow Doppler with graded compression were used to evaluate the deep venous system of the right lower extremity. FINDINGS: The visualized deep venous system of the right lower extremity is sonographically normal and compressible. Normal waveforms and augmentation are seen. There is no sonographic evidence for deep venous thrombosis in the visualized segments of the right lower extremity. IMPRESSION: 1. No sonographic evidence for deep venous thrombosis in the visualized segments of the right lower extremity.
--- NOTE | 2018-01-04 21:35 | PCM.SEPTIC ---
Sepsis Progress Note - Reassessment Type Date of Evaluation: 01/04/18 Time of Evaluation: 21:32 Reassessment Type: Non-invasive reassessment - Non Invasive Reassessment Were the most recent vital sign reviewed: Yes Vital Sign (Latest): Temp Pulse Resp BP Pulse Ox 97.5 F L 87 19 148/82 98 01/04/18 18:00 01/04/18 18:00 01/04/18 18:00 01/04/18 18:00 01/04/18 18:00 Cardiovascular: Yes: Regular Rate, Rhythm, Chest Non Tender. No: Tachycardia Respiratory: Yes: Normal Breath Sounds. No: Crackles, Rales, Rhonchi Capillary Refill: Normal (Less than 2 sec) Pulses: Normal Radial Skin: Warm, Rash (multiple 2x2cm bullae noted on RLE. Tenderness to palpation along anterolateral tibial region)
[2018-01-04] MEDS: Metoprolol Succinate 50 mg XL Tab PO SCH (21:54)
[2018-01-04 22:45] LABS: VENOUS BLOOD GAS BASE EXCESS -1.5 mmol/L (0.0-2.0); VENOUS BLOOD GAS PO2 29 mm/Hg (30-55)
[2018-01-04] MEDS: Dextrose 5%/0.45% NS 1,000 ML IV SCH (22:56)
[2018-01-05] MEDS ORDERED: Pneumococcal 23-Valent Vaccine IM ONE (00:07)
[2018-01-05] MEDS: Piperacillin/Tazobact 2.25gm 2.25 GM/100 ML BAG IVPB SCH ×2 (00:31→06:01)
[2018-01-05] MEDS: Pantoprazole 40 mg EC Tab PO SCH (06:01)
--- NOTE | 2018-01-05 06:19 | HP ---
Copied To: Aquilino Garcia MD Attending MD: Aquilino Garcia MD HISTORY OF PRESENT ILLNESS: The patient is an 82 years old known to me from office practice, very noncompliant, supposed to be on Coumadin and monitoring his PT/INR every other week, but did not show up in office for more than a month. In his last admission, the patient had DVT. Apparently, there was some coagulation disorder in the family, his daughter is also on anticoagulant. He was told that he should be on Coumadin for life, but he does not seem to be serious about this and does not follow up in office as he is supposed to. However, the patient came to the emergency room because of increasing swelling and redness of the right lower extremity, started to have blisters that was came to the ER for further evaluation. Denies any fever or chills. No history of nausea or vomiting. No history of diarrhea. PAST MEDICAL HISTORY: Significant for: 1. Hypertension. 2. COPD. 3. Gastritis. 4. DVT, for that he was admitted in 04/2017. 5. Cirrhosis of liver. PAST SURGICAL HISTORY: Significant for: 1. Cataract extraction. 2. History of prostatic enlargement. ALLERGIES: HE IS NOT ALLERGIC TO ANY MEDICATION. MEDICATIONS AT HOME: He is supposed to be on Coumadin 10 mg daily, atorvastatin 20 mg daily, magnesium oxide 400 daily, Protonix 40 mg daily, metoprolol 50 mg at bedtime, thiamine 100 mg daily, lisinopril 10 mg in the morning. SOCIAL HISTORY: He lives by himself. Heavy smoker and drinker, still smokes more than 10 to 15 cigarettes daily. PHYSICAL EXAMINATION: GENERAL: He is awake, alert, oriented, communicative. VITAL SIGNS: He is afebrile, pulse 87, respirations 19, blood pressure 140/71. LUNGS: Bilateral fair airflow. No rhonchi or crackles. HEART: S1 and S2 audible. ABDOMEN: Soft, nontender. No rebound, no guarding. NEUROLOGIC: He is awake, alert, oriented, able to communicate. EXTREMITIES: Right leg has erythema with blisters and edema. LABORATORY DATA: WBC is 20.8, hemoglobin 8, hematocrit 24, platelets 161. PT 14, INR 1.22. Chemistry: Sodium 139, potassium 4.4, chloride 104, CO2 of 22, BUN 43, creatinine , blood sugar of 192. LFTs are within normal limits. He has sonogram done that shows no evidence of deep venous thrombosis in the right lower extremity. ASSESSMENT: 1. Right leg cellulitis. 2. Right leg edema. 3. Active alcoholic. 4. Active smoker. 5. Hypertension. 6. Chronic obstructive pulmonary disease. PLAN: The patient will be admitted. We will restart his Coumadin. Continue him on his statin. He has been started on beta-ramiro. We will start him on Zosyn. Consult Dr. Mercado. We will follow up the patient in a.m. Aquilino Garcia MD
[2018-01-05 06:50] LABS: BASO # 0.03 K/mm3 (0.0-2.0); BASO % 0.2 % (0.0-3.0); EOS # 0.1 (0.0-0.7); EOS % 0.6 % (1.5-5.0); GRAN # 13.98 (1.4-6.5); GRAN % 88.7 % (50.0-68.0); HEMOGLOBIN 7.6 g/dL (14.0-18.0); LYMPH # 0.9 (1.2-3.4); LYMPH % 5.7 % (22.0-35.0); MEAN CELL VOLUME 91.7 fl (80.0-105.0); MEAN CORPUSCULAR HEMOGLOBIN 31.5 pg (25.0-35.0); MEAN CORPUSCULAR HGB CONC 34.4 g/dl (31.0-37.0); MONO # 0.8 (0.1-0.6); MONO % 4.8 % (1.0-6.0); RBC 2.41 10^6/uL (3.5-6.1); RED CELL DISTRIBUTION WIDTH 14.4 % (11.5-14.5); WHITE BLOOD COUNT 15.8 10^3/ul (4.5-11.0)
[2018-01-05 07:50] LABS: ALBUMIN 2.6 g/dL (3.0-4.8); CALCIUM 7.8 mg/dL (8.4-10.5)
[2018-01-05 07:51] LABS: ALB/GLOB RATIO 0.7 (1.1-1.8)
[2018-01-05] MEDS: Metoprolol Succinate 50 mg XL Tab PO SCH (09:28)
[2018-01-05] MEDS ORDERED: Magnesium Oxide 400 mg Tab UD PO SCH (10:00)
--- NOTE | 2018-01-05 11:27 | CP.PCM.CON ---
<Samantha Pierre - Last Filed: 01/05/18 11:32> History of Present Illness - History of Present Illness History of Present Illness: PGY-3 Infectious disease consult for Dr. Mcneil's service 82 yo male with past medical history of hypertension, COPD, gastritis and history of DVT (04/2017 - on coumadin) presenting with progressive swelling and erythema of right lower extremity. Patient states that the erythema began about 3 days ago and that he developed clear, liquid filled blisters on the lower leg 2 days ago. He reports that they began to weep yesterday. Patient states that last his leg began to swell an d was diagnosed with DVT and started on coumadin. Patient states that since then his leg remained somewhat swollen. Patient reports taking his medication every day but has not had an INR check recently. He has no other complaints today. Denies fevers, chills, nausea, vomiting, chest pain, shortness of breath, dyspnea on exertion, numbness or tingling. He denies any trauma or sick contacts. PMH: hypertension, COPD, gastritis, DVT (04/2017 - on coumadin), cirrhosis, BPH PSH: cataract extraction social history: smoked 3-4 cigarettes daily, daily alcohol use, denies illicit drug use allergy: NKDA Review of Systems - Review of Systems All systems: reviewed and no additional remarkable complaints except Past Patient History - Infectious Disease Hx of Infectious Diseases: None - Tetanus Immunizations Tetanus Immunization: Unknown - Past Social History Smoking Status: Current Some Days Smoker - CARDIAC Hx Cardiac Disorders: Yes Hx Hypertension: Yes - PULMONARY Hx Respiratory Disorders: Yes (USED TO SMOKE CIGARETTES PPD OW SMOKES 1 CIGAR Q 2 HRS.) Hx Chronic Obstructive Pulmonary Disease (COPD): Yes - NEUROLOGICAL Hx Neurological Disorder: No - HEENT Hx HEENT Problems: Yes Hx Cataracts: Yes - RENAL Hx Chronic Kidney Disease: No - ENDOCRINE/METABOLIC Hx Endocrine Disorders: No - HEMATOLOGICAL/ONCOLOGICAL Hx Blood Disorders: No - INTEGUMENTARY Hx Dermatological Problems: Yes Other/Comment: 01-04-18 PROGRESSIVELY WORSENING RIGHT LEG CELLULITIS.WITH LARGE BLISTER FORMATION,MEDIUM AMOUNT OF SEROUS DRAIANGE.PAIN.ERYTHEMA.STARTED APR 06 - MUSCULOSKELETAL/RHEUMATOLOGICAL Hx Musculoskeletal Disorders: Yes Hx Falls: Yes Hx Unsteady Gait: Yes - GASTROINTESTINAL Hx Gastrointestinal Disorders: No - GENITOURINARY/GYNECOLOGICAL Hx Genitourinary Disorders: Yes Hx Prostate Problems: Yes (SCRAPING DONE) - PSYCHIATRIC Hx Psychophysiologic Disorder: Yes Hx Depression: Yes Hx Substance Use: No - SURGICAL HISTORY Hx Surgeries: Yes (Prostate) - ANESTHESIA Hx Anesthesia Reactions: No Hx Malignant Hyperthermia: No Meds Allergies/Adverse Reactions: Allergies Allergy/AdvReac Type Severity Reaction Status Date / Time No Known Allergies Allergy Verified 01/04/18 21:30 - Medications Medications: Current Medications Atorvastatin Calcium (Lipitor) 20 mg PO DIN [facility] Last Admin: 01/04/18 21:54 Dose: 20 mg Dextrose/Sodium Chloride (Dextrose 5%/0.45% Ns 1000 Ml) 1,000 mls @ 75 mls/hr IV .[id number] [facility] Last Admin: 01/04/18 22:56 Dose: 75 mls/hr Ceftaroline Fosamil 200 mg/ (Sodium Chloride) 100 mls @ 100 mls/hr IVPB Q12 [facility] PRN Reason: Protocol Stop: 01/12/18 10:01 Last Admin: 01/05/18 10:04 Dose: 100 mls/hr Lisinopril (Zestril) 10 mg PO DAILY [facility] Last Admin: 01/05/18 09:29 Dose: 10 mg Metoprolol Succinate (Toprol Xl) 50 mg PO BRK [facility] Last Admin: 01/05/18 09:28 Dose: 50 mg Metoprolol Succinate (Toprol Xl) 50 mg PO HS [facility] Last Admin: 01/04/18 21:54 Dose: 50 mg Pantoprazole Sodium (Protonix Ec Tab) 40 mg PO 0630 [facility] Last Admin: 01/05/18 06:01 Dose: 40 mg Thiamine HCl (Vitamin B1 Tab) 100 mg PO DAILY [facility] Last Admin: 01/05/18 09:29 Dose: 100 mg Warfarin Sodium (Coumadin) 10 mg PO 1800 [facility] PRN Reason: Protocol Physical Exam - Constitutional Appears: No Acute Distress - Head Exam Head Exam: ATRAUMATIC, NORMAL INSPECTION, NORMOCEPHALIC - Eye Exam Eye Exam: EOMI - ENT Exam ENT Exam: Mucous Membranes Moist - Respiratory Exam Respiratory Exam: Clear to Auscultation Bilateral, NORMAL BREATHING PATTERN. absent: Decreased Breath Sounds, Rhonchi, Wheezes, Respiratory Distress - Cardiovascular Exam Cardiovascular Exam: REGULAR RHYTHM, +S1, +S2. absent: Bradycardia, Tachycardia , Diastolic murmur, Systolic Murmur - GI/Abdominal Exam GI & Abdominal Exam: Normal Bowel Sounds, Soft. absent: Distended, Firm, Guarding, Tenderness - Extremities Exam Additional comments: lower right leg has multiple bullae filled with serous appearing fluid, erythema , tender to palpation with increase warmth, no abscess, poor hygiene - Neurological Exam Neurological exam: Alert, Oriented x3 Results - Vital Signs Recent Vital Signs: Last Vital Signs Temp 98 F 01/05/18 08:39 Pulse 74 01/05/18 09:29 Resp 18 01/05/18 08:39 BP 125/70 01/05/18 09:29 Pulse Ox 98 01/05/18 08:39 - Labs Result Diagrams: 01/05/18 05:30 01/05/18 05:30 Labs: Laboratory Results - last 24 hr 01/04/18 01/05/18 01/05/18 22:41 05:30 05:30 WBC 15.8 H D RBC 2.41 L Hgb 7.6 L Hct 22.1 L MCV 91.7 MCH 31.5 MCHC 34.4 RDW 14.4 Plt Count 136 MPV 10.0 Gran % 88.7 H Lymph % (Auto) 5.7 L [place] % (Auto) 4.8 Eos % (Auto) 0.6 L Baso % (Auto) 0.2 Gran # 13.98 H Lymph # (Auto) 0.9 L [place] # (Auto) 0.8 H Eos # (Auto) 0.1 Baso # (Auto) 0.03 pO2 29 L VBG pH 7.40 VBG pCO2 37.0 L VBG HCO3 22.9 VBG Total CO2 24.0 VBG O2 Sat (Calc) 57.5 VBG Base Excess -1.5 L VBG Potassium 3.5 L Sodium 138.0 138 Chloride 108.0 H 109 H Glucose 126 H Lactate 1.1 FiO2 21.0 Potassium 3.4 L Carbon Dioxide 21 Anion Gap 11 BUN 39 H Creatinine 2.0 H Est GFR ( Amer) 39 Est GFR (Non-Af Amer) 32 Random Glucose 160 H Calcium 7.8 L Total Bilirubin 0.4 AST 16 L ALT 16 Alkaline Phosphatase 100 Total Protein 6.1 Albumin 2.6 L Globulin 3.5 Albumin/Globulin Ratio 0.7 L Venous Blood Potassium 3.5 L Assessment & Plan - Assessment and Plan (Free Text) Assessment: 82 yo male with past medical history of hypertension, COPD, gastritis and history of DVT (04/2017 - on coumadin) presenting with progressive swelling and erythema of right lower extremity with fluid filled blisters, found to have anemia, HARSH, elevated LFTs. sepsis most likely due to cellulitis of the lower extremity. Patient is afebrile with leukocytosis. Ultrasound of lower extremities were negative for DVT. Will start on ceftarolin for possible MRSA. podiatry is consulted. Follow up blood cultures and CRP. case seen and discussed with attending, Dr. Mcneil <Chris Mcneil - Last Filed: 01/05/18 19:30> Meds - Medications Medications: Current Medications Acetaminophen (Tylenol 325mg Tab) 650 mg PO Q4H PRN PRN Reason: Pain, Mild (1-3) Atorvastatin Calcium (Lipitor) 20 mg PO DIN [facility] Last Admin: 01/05/18 17:33 Dose: 20 mg Dextrose/Sodium Chloride (Dextrose 5%/0.45% Ns 1000 Ml) 1,000 mls @ 75 mls/hr IV .[id number] [facility] Last Admin: 01/04/18 22:56 Dose: 75 mls/hr Ceftaroline Fosamil 200 mg/ (Sodium Chloride) 100 mls @ 100 mls/hr IVPB Q12 [facility] PRN Reason: Protocol Stop: 01/12/18 10:01 Last Admin: 01/05/18 10:04 Dose: 100 mls/hr Lisinopril (Zestril) 10 mg PO DAILY [facility] Last Admin: 01/05/18 09:29 Dose: 10 mg Metoprolol Succinate (Toprol Xl) 50 mg PO BRK [facility] Last Admin: 01/05/18 09:28 Dose: 50 mg Metoprolol Succinate (Toprol Xl) 50 mg PO HS [facility] Last Admin: 01/04/18 21:54 Dose: 50 mg Pantoprazole Sodium (Protonix Ec Tab) 40 mg PO 0630 [facility] Last Admin: 01/05/18 06:01 Dose: 40 mg Thiamine HCl (Vitamin B1 Tab) 100 mg PO DAILY [facility] Last Admin: 01/05/18 09:29 Dose: 100 mg Tramadol/Acetaminophen (Ultracet 37.5/325 Mg) 1 tab PO Q6H PRN PRN Reason: Pain, moderate (4-7) Last Admin: 01/05/18 14:26 Dose: 1 tab Warfarin Sodium (Coumadin) 10 mg PO 1800 [facility] PRN Reason: Protocol Last Admin: 01/05/18 17:32 Dose: 10 mg Results - Vital Signs Recent Vital Signs: Last Vital Signs Temp 97.6 F 01/05/18 17:36 Pulse 77 01/05/18 17:36 Resp 20 01/05/18 17:36 BP 162/88 H 01/05/18 17:36 Pulse Ox 100 01/05/18 17:26 - Labs Result Diagrams: 01/05/18 05:30 01/05/18 05:30 Labs: Laboratory Results - last 24 hr 01/04/18 01/05/18 01/05/18 22:41 05:30 05:30 WBC 15.8 H D RBC 2.41 L Hgb 7.6 L Hct 22.1 L MCV 91.7 MCH 31.5 MCHC 34.4 RDW 14.4 Plt Count 136 MPV 10.0 Gran % 88.7 H Lymph % (Auto) 5.7 L [place] % (Auto) 4.8 Eos % (Auto) 0.6 L Baso % (Auto) 0.2 Gran # 13.98 H Lymph # (Auto) 0.9 L [place] # (Auto) 0.8 H Eos # (Auto) 0.1 Baso # (Auto) 0.03 pO2 29 L VBG pH 7.40 VBG pCO2 37.0 L VBG HCO3 22.9 VBG Total CO2 24.0 VBG O2 Sat (Calc) 57.5 VBG Base Excess -1.5 L VBG Potassium 3.5 L Sodium 138.0 138 Chloride 108.0 H 109 H Glucose 126 H Lactate 1.1 FiO2 21.0 Potassium 3.4 L Carbon Dioxide 21 Anion Gap 11 BUN 39 H Creatinine 2.0 H Est GFR ( Amer) 39 Est GFR (Non-Af Amer) 32 Random Glucose 160 H Calcium 7.8 L Total Bilirubin 0.4 AST 16 L ALT 16 Alkaline Phosphatase 100 C-Reactive Protein Total Protein 6.1 Albumin 2.6 L Globulin 3.5 Albumin/Globulin Ratio 0.7 L Venous Blood Potassium 3.5 L Blood Type Blood Type Confirm Antibody Screen Crossmatch BBK History Checked 01/05/18 01/05/18 01/05/18 06:30 14:20 15:23 WBC RBC Hgb Hct MCV MCH MCHC RDW Plt Count MPV Gran % Lymph % (Auto) [place] % (Auto) Eos % (Auto) Baso % (Auto) Gran # Lymph # (Auto) [place] # (Auto) Eos # (Auto) Baso # (Auto) pO2 VBG pH VBG pCO2 VBG HCO3 VBG Total CO2 VBG O2 Sat (Calc) VBG Base Excess VBG Potassium Sodium Chloride Glucose Lactate FiO2 Potassium Carbon Dioxide Anion Gap BUN Creatinine Est GFR ( Amer) Est GFR (Non-Af Amer) Random Glucose Calcium Total Bilirubin AST ALT Alkaline Phosphatase C-Reactive Protein 231.40 H Total Protein Albumin Globulin Albumin/Globulin Ratio Venous Blood Potassium Blood Type A POSITIVE Blood Type Confirm A POSITIVE Antibody Screen Negative Crossmatch See Detail BBK History Checked No verified bt Assessment & Plan - Assessment and Plan (Free Text) Assessment: Infectious Diseases Attending Physician Addendum/ Attestation Patient seen and examined, discussed with medical imaging specialist. I have reviewed the pertinent clinical information for the patient. I agree with the above findings , assessment and plan. In addition, we have started the patient on Teflaro for probable right leg cellulitis with bullae formation. Will follow up blood cx, follow up Podiatry recommendations and will monitor clinically.
[2018-01-05] MEDS ORDERED: Potassium Chloride 20 mEq ER Tab PO ONE (12:14)
[2018-01-05] MEDS: TraMADol/Apap 37.5/325 mg Tab PO PRN (14:26)
--- NOTE | 2018-01-05 15:09 | PN ---
Copied To: Aquilino Garcia MD Attending MD: Aquilino Garcia MD DATE: 01/05/2018 SUBJECTIVE: The patient is 82 years old, seen and examined, sitting in chair, seems to be comfortable except his right foot is swelling, has blister on the right terrazas. PHYSICAL EXAMINATION: VITAL SIGNS: He is afebrile, pulse 74, respirations 18, blood pressure 125/70. LUNGS: Bilateral fair airflow. No rhonchi or crackle. HEART: S1 and S2 audible. ABDOMEN: Soft. Nontender. No rebound. No guarding. NEUROLOGICAL: He is awake, alert, oriented, communicative. EXTREMITIES: On the right foot, he has a big bleb on terrazas and he has erythema and swelling of the right foot with scaly lesions. LABORATORY EXAM: WBC is 15.8, hemoglobin 7.6, hematocrit 22.1, platelet Of 136. PT 14, INR 1.22. Chemistry: Sodium 138, potassium 3.4, chloride 109, CO2 of 21, BUN 39, creatinine 2, blood sugar of 150. LFTs are within normal limit. ASSESSMENT: 1. Right foot cellulitis. 2. Right terrazas cellulitis. 3. Coagulopathy. 4. History of deep venous thrombosis, noncompliance with Coumadin. 5. Chronic obstructive pulmonary disease. 6. Alcohol dependence. 7. Chronic smoker. PLAN: I will give 2 blood transfusions. We will hold IV fluid while he is getting blood transfusion. We will follow up CBC, CMP in the a.m. He is getting antibiotic as recommended by ID. He is on Teflaro. We will follow his CBC in the a.m. We will follow up. Aquilino Garcia MD
--- NOTE | 2018-01-05 16:15 | CP.PCM.CON ---
<Marcelle,Mark - Last Filed: 01/05/18 16:10> History of Present Illness - History of Present Illness History of Present Illness: Podiatry Progress Note for Dr. 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 Patient states that the blisters began roughly four days ago. He states that they are painful to touch and have been draining. He denies any redness to the leg. Denies any posterior calf pain when squeezed. Patient is AAO x 3 and NAD, resting comfortably in bed. Denies any other pedal complaints at this time. Denies any recent N/V/F/C/CP/SOB/D Review of Systems - Review of Systems All systems: reviewed and no additional remarkable complaints except Review of Systems: as per HPI Past Patient History - Infectious Disease Hx of Infectious Diseases: None - Tetanus Immunizations Tetanus Immunization: Unknown - Past Social History Smoking Status: Current Some Days Smoker - CARDIAC Hx Cardiac Disorders: Yes Hx Hypertension: Yes - PULMONARY Hx Respiratory Disorders: Yes (USED TO SMOKE CIGARETTES PPD OW SMOKES 1 CIGAR Q 2 HRS.) Hx Chronic Obstructive Pulmonary Disease (COPD): Yes - NEUROLOGICAL Hx Neurological Disorder: No - HEENT Hx HEENT Problems: Yes Hx Cataracts: Yes - RENAL Hx Chronic Kidney Disease: No - ENDOCRINE/METABOLIC Hx Endocrine Disorders: No - HEMATOLOGICAL/ONCOLOGICAL Hx Blood Disorders: No - INTEGUMENTARY Hx Dermatological Problems: Yes Other/Comment: 01-04-18 PROGRESSIVELY WORSENING RIGHT LEG CELLULITIS.WITH LARGE BLISTER FORMATION,MEDIUM AMOUNT OF SEROUS DRAIANGE.PAIN.ERYTHEMA.STARTED APR 06 - MUSCULOSKELETAL/RHEUMATOLOGICAL Hx Musculoskeletal Disorders: Yes Hx Falls: Yes Hx Unsteady Gait: Yes - GASTROINTESTINAL Hx Gastrointestinal Disorders: No - GENITOURINARY/GYNECOLOGICAL Hx Genitourinary Disorders: Yes Hx Prostate Problems: Yes (SCRAPING DONE) - PSYCHIATRIC Hx Psychophysiologic Disorder: Yes Hx Depression: Yes Hx Substance Use: No - SURGICAL HISTORY Hx Surgeries: Yes (Prostate) - ANESTHESIA Hx Anesthesia Reactions: No Hx Malignant Hyperthermia: No Meds Allergies/Adverse Reactions: Allergies Allergy/AdvReac Type Severity Reaction Status Date / Time No Known Allergies Allergy Verified 01/04/18 21:30 - Medications Medications: Current Medications Acetaminophen (Tylenol 325mg Tab) 650 mg PO Q4H PRN PRN Reason: Pain, Mild (1-3) Atorvastatin Calcium (Lipitor) 20 mg PO DIN [facility] Last Admin: 01/04/18 21:54 Dose: 20 mg Dextrose/Sodium Chloride (Dextrose 5%/0.45% Ns 1000 Ml) 1,000 mls @ 75 mls/hr IV .[id number] [facility] Last Admin: 01/04/18 22:56 Dose: 75 mls/hr Ceftaroline Fosamil 200 mg/ (Sodium Chloride) 100 mls @ 100 mls/hr IVPB Q12 [facility] PRN Reason: Protocol Stop: 01/12/18 10:01 Last Admin: 01/05/18 10:04 Dose: 100 mls/hr Lisinopril (Zestril) 10 mg PO DAILY [facility] Last Admin: 01/05/18 09:29 Dose: 10 mg Metoprolol Succinate (Toprol Xl) 50 mg PO BRK [facility] Last Admin: 01/05/18 09:28 Dose: 50 mg Metoprolol Succinate (Toprol Xl) 50 mg PO HS [facility] Last Admin: 01/04/18 21:54 Dose: 50 mg Pantoprazole Sodium (Protonix Ec Tab) 40 mg PO 0630 [facility] Last Admin: 01/05/18 06:01 Dose: 40 mg Thiamine HCl (Vitamin B1 Tab) 100 mg PO DAILY [facility] Last Admin: 01/05/18 09:29 Dose: 100 mg Tramadol/Acetaminophen (Ultracet 37.5/325 Mg) 1 tab PO Q6H PRN PRN Reason: Pain, moderate (4-7) Last Admin: 01/05/18 14:26 Dose: 1 tab Warfarin Sodium (Coumadin) 10 mg PO 1800 [facility] PRN Reason: Protocol Physical Exam - Constitutional Appears: Well, Non-toxic, No Acute Distress - Extremities Exam Additional comments: LE focused exam: Vasc: DP/PT pulses fully palpable 2/4 b/l. Skin temperature warm to warm from proximal to distal. CFT < 3 seconds to all digits b/l. Moderate, unilateral edema noted to right leg Neuro: Epicritic and protective sensation grossly intact b/l Derm: Bullae noted to right lateral leg spanning from level of midcalf down to lateral malleolus. Some serous drainage appreciated on bedsheets. No other open lesions, wounds, maceration, xerosis, abnormal pigmentation or abnormal growths noted MSK: POP to blister sites. ROM WNL at all major joints. MMT 5/5 in all major muscle groups. No other gross deformities noted - Neurological Exam Neurological exam: Alert, Oriented x3 - Psychiatric Exam Psychiatric exam: Normal Affect, Normal Mood Results - Vital Signs Recent Vital Signs: Last Vital Signs Temp 98 F 01/05/18 08:39 Pulse 74 01/05/18 09:29 Resp 18 01/05/18 08:39 BP 125/70 01/05/18 09:29 Pulse Ox 98 01/05/18 08:39 - Labs Result Diagrams: 01/05/18 05:30 01/05/18 05:30 Labs: Laboratory Results - last 24 hr 01/04/18 01/05/18 01/05/18 22:41 05:30 05:30 WBC 15.8 H D RBC 2.41 L Hgb 7.6 L Hct 22.1 L MCV 91.7 MCH 31.5 MCHC 34.4 RDW 14.4 Plt Count 136 MPV 10.0 Gran % 88.7 H Lymph % (Auto) 5.7 L [place] % (Auto) 4.8 Eos % (Auto) 0.6 L Baso % (Auto) 0.2 Gran # 13.98 H Lymph # (Auto) 0.9 L [place] # (Auto) 0.8 H Eos # (Auto) 0.1 Baso # (Auto) 0.03 pO2 29 L VBG pH 7.40 VBG pCO2 37.0 L VBG HCO3 22.9 VBG Total CO2 24.0 VBG O2 Sat (Calc) 57.5 VBG Base Excess -1.5 L VBG Potassium 3.5 L Sodium 138.0 138 Chloride 108.0 H 109 H Glucose 126 H Lactate 1.1 FiO2 21.0 Potassium 3.4 L Carbon Dioxide 21 Anion Gap 11 BUN 39 H Creatinine 2.0 H Est GFR ( Amer) 39 Est GFR (Non-Af Amer) 32 Random Glucose 160 H Calcium 7.8 L Total Bilirubin 0.4 AST 16 L ALT 16 Alkaline Phosphatase 100 C-Reactive Protein Total Protein 6.1 Albumin 2.6 L Globulin 3.5 Albumin/Globulin Ratio 0.7 L Venous Blood Potassium 3.5 L Blood Type Blood Type Confirm Antibody Screen Crossmatch BBK History Checked 0801/05/18 01/05/18 06:30 14:20 15:23 WBC RBC Hgb Hct MCV MCH MCHC RDW Plt Count MPV Gran % Lymph % (Auto) [place] % (Auto) Eos % (Auto) Baso % (Auto) Gran # Lymph # (Auto) [place] # (Auto) Eos # (Auto) Baso # (Auto) pO2 VBG pH VBG pCO2 VBG HCO3 VBG Total CO2 VBG O2 Sat (Calc) VBG Base Excess VBG Potassium Sodium Chloride Glucose Lactate FiO2 Potassium Carbon Dioxide Anion Gap BUN Creatinine Est GFR ( Amer) Est GFR (Non-Af Amer) Random Glucose Calcium Total Bilirubin AST ALT Alkaline Phosphatase C-Reactive Protein 231.40 H Total Protein Albumin Globulin Albumin/Globulin Ratio Venous Blood Potassium Blood Type A POSITIVE Blood Type Confirm A POSITIVE Antibody Screen Negative Crossmatch See Detail BBK History Checked No verified bt Assessment & Plan - Assessment and Plan (Free Text) Assessment: 82M seen at bedside for right leg swelling and bullae formation Plan: Patient seen and evaluated with Dr. Pham Afebrile, WBC 15.8 from 20.8 Continue abx per ID RLE US: No evidence of DVT Blister site lanced with suture removal scissors and drained but not deroofed Serous drainage noted from blister site Site dressed with xeroform, ABD, DSD No plan for surgical intervention at this time Podiatry will continue to follow while patient in house - Date & Time Date: 01/05/18 Time: 16:18 <Van Pham - Last Filed: 01/05/18 16:50> Meds - Medications Medications: Current Medications Acetaminophen (Tylenol 325mg Tab) 650 mg PO Q4H PRN PRN Reason: Pain, Mild (1-3) Atorvastatin Calcium (Lipitor) 20 mg PO DIN [facility] Last Admin: 01/04/18 21:54 Dose: 20 mg Dextrose/Sodium Chloride (Dextrose 5%/0.45% Ns 1000 Ml) 1,000 mls @ 75 mls/hr IV .[id number] [facility] Last Admin: 01/04/18 22:56 Dose: 75 mls/hr Ceftaroline Fosamil 200 mg/ (Sodium Chloride) 100 mls @ 100 mls/hr IVPB Q12 [facility] PRN Reason: Protocol Stop: 01/12/18 10:01 Last Admin: 01/05/18 10:04 Dose: 100 mls/hr Lisinopril (Zestril) 10 mg PO DAILY [facility] Last Admin: 01/05/18 09:29 Dose: 10 mg Metoprolol Succinate (Toprol Xl) 50 mg PO BRK [facility] Last Admin: 01/05/18 09:28 Dose: 50 mg Metoprolol Succinate (Toprol Xl) 50 mg PO HS [facility] Last Admin: 01/04/18 21:54 Dose: 50 mg Pantoprazole Sodium (Protonix Ec Tab) 40 mg PO 0630 [facility] Last Admin: 01/05/18 06:01 Dose: 40 mg Thiamine HCl (Vitamin B1 Tab) 100 mg PO DAILY [facility] Last Admin: 01/05/18 09:29 Dose: 100 mg Tramadol/Acetaminophen (Ultracet 37.5/325 Mg) 1 tab PO Q6H PRN PRN Reason: Pain, moderate (4-7) Last Admin: 01/05/18 14:26 Dose: 1 tab Warfarin Sodium (Coumadin) 10 mg PO 1800 [facility] PRN Reason: Protocol Results - Vital Signs Recent Vital Signs: Last Vital Signs Temp 97.6 F 01/05/18 16:34 Pulse 72 01/05/18 16:34 Resp 20 01/05/18 16:34 BP 161/76 H 01/05/18 16:34 Pulse Ox 98 01/05/18 08:39 - Labs Result Diagrams: 01/05/18 05:30 01/05/18 05:30 Labs: Laboratory Results - last 24 hr 01/04/18 01/05/18 01/05/18 22:41 05:30 05:30 WBC 15.8 H D RBC 2.41 L Hgb 7.6 L Hct 22.1 L MCV 91.7 MCH 31.5 MCHC 34.4 RDW 14.4 Plt Count 136 MPV 10.0 Gran % 88.7 H Lymph % (Auto) 5.7 L [place] % (Auto) 4.8 Eos % (Auto) 0.6 L Baso % (Auto) 0.2 Gran # 13.98 H Lymph # (Auto) 0.9 L [place] # (Auto) 0.8 H Eos # (Auto) 0.1 Baso # (Auto) 0.03 pO2 29 L VBG pH 7.40 VBG pCO2 37.0 L VBG HCO3 22.9 VBG Total CO2 24.0 VBG O2 Sat (Calc) 57.5 VBG Base Excess -1.5 L VBG Potassium 3.5 L Sodium 138.0 138 Chloride 108.0 H 109 H Glucose 126 H Lactate 1.1 FiO2 21.0 Potassium 3.4 L Carbon Dioxide 21 Anion Gap 11 BUN 39 H Creatinine 2.0 H Est GFR ( Amer) 39 Est GFR (Non-Af Amer) 32 Random Glucose 160 H Calcium 7.8 L Total Bilirubin 0.4 AST 16 L ALT 16 Alkaline Phosphatase 100 C-Reactive Protein Total Protein 6.1 Albumin 2.6 L Globulin 3.5 Albumin/Globulin Ratio 0.7 L Venous Blood Potassium 3.5 L Blood Type Blood Type Confirm Antibody Screen Crossmatch BBK History Checked 01/05/18 01/05/18 01/05/18 06:30 14:20 15:23 WBC RBC Hgb Hct MCV MCH MCHC RDW Plt Count MPV Gran % Lymph % (Auto) [place] % (Auto) Eos % (Auto) Baso % (Auto) Gran # Lymph # (Auto) [place] # (Auto) Eos # (Auto) Baso # (Auto) pO2 VBG pH VBG pCO2 VBG HCO3 VBG Total CO2 VBG O2 Sat (Calc) VBG Base Excess VBG Potassium Sodium Chloride Glucose Lactate FiO2 Potassium Carbon Dioxide Anion Gap BUN Creatinine Est GFR ( Amer) Est GFR (Non-Af Amer) Random Glucose Calcium Total Bilirubin AST ALT Alkaline Phosphatase C-Reactive Protein 231.40 H Total Protein Albumin Globulin Albumin/Globulin Ratio Venous Blood Potassium Blood Type A POSITIVE Blood Type Confirm A POSITIVE Antibody Screen Negative Crossmatch See Detail BBK History Checked No verified bt Attending/Attestation - Attestation I have personally seen and examined this patient.: Yes I have fully participated in the care of the patient.: Yes I have reviewed all pertinent clinical information: Yes
[2018-01-06] MEDS: Metoprolol Succinate 50 mg XL Tab PO SCH ×3 (00:55→21:45)
[2018-01-06] MEDS: Dextrose 5%/0.45% NS 1,000 ML IV SCH (00:55)
[2018-01-06] MEDS: Pantoprazole 40 mg EC Tab PO SCH (06:13)
[2018-01-06 06:27] LABS: BASO # 0.02 K/mm3 (0.0-2.0); BASO % 0.1 % (0.0-3.0); EOS # 0.1 (0.0-0.7); EOS % 0.8 % (1.5-5.0); GRAN # 12.28 (1.4-6.5); LYMPH % 6.6 % (22.0-35.0); MEAN CORPUSCULAR HEMOGLOBIN 30.4 pg (25.0-35.0); MEAN CORPUSCULAR HGB CONC 34.5 g/dl (31.0-37.0); MEAN PLATELET VOLUME 9.9 fl (7.0-11.0); MONO # 0.9 (0.1-0.6); MONO % 6.5 % (1.0-6.0); RBC 3.52 10^6/uL (3.5-6.1); RED CELL DISTRIBUTION WIDTH 15.7 % (11.5-14.5); WHITE BLOOD COUNT 14.3 10^3/ul (4.5-11.0)
[2018-01-06 06:42] LABS: INR 1.23; PROTHROMBIN TIME 14.2 SECONDS (9.4-12.5)
[2018-01-06 06:53] LABS: ALB/GLOB RATIO 0.7 (1.1-1.8); ALBUMIN 2.6 g/dL (3.0-4.8); CALCIUM 7.9 mg/dL (8.4-10.5)
[2018-01-06 06:56] LABS: HEMOGLOBIN 10.7 g/dL (14.0-18.0); MEAN CELL VOLUME 88.1 fl (80.0-105.0)
[2018-01-06] MEDS: Potassium Chloride 20 mEq ER Tab PO SCH (11:30)
--- NOTE | 2018-01-06 11:32 | CP.PCM.PN ---
<Samantha Pierre - Last Filed: 01/06/18 11:43> Subjective - Date & Time of Evaluation Date of Evaluation: 01/06/18 Time of Evaluation: 07:30 - Subjective Subjective: PGY-3 Infectious disease progress note for Dr. Mcneil's service Patient seen and examined at bedside, no acute distress. Patient states that his lower left extremity feels better. Yesterday podiatry dressed the wounds. He denies chest pain, fever, chills, n/v, sob. He is tolerating his diet. Objective - Vital Signs/Intake and Output Vital Signs (last 24 hours): Temp Pulse Resp BP Pulse Ox 97.5 F L 69 20 156/92 H 100 01/06/18 08:28 01/06/18 09:00 01/06/18 08:28 01/06/18 09:09 01/06/18 08:28 Intake and Output: 01/06/18 01/06/18 06:59 18:59 Intake Total 1300 Output Total 250 Balance 1050 - Medications Medications: Current Medications Acetaminophen (Tylenol 325mg Tab) 650 mg PO Q4H PRN PRN Reason: Pain, Mild (1-3) Atorvastatin Calcium (Lipitor) 20 mg PO DIN [facility] Last Admin: 01/05/18 17:33 Dose: 20 mg Dextrose/Sodium Chloride (Dextrose 5%/0.45% Ns 1000 Ml) 1,000 mls @ 75 mls/hr IV .[id number] [facility] Last Admin: 01/06/18 00:55 Dose: 75 mls/hr Ceftaroline Fosamil 200 mg/ (Sodium Chloride) 100 mls @ 100 mls/hr IVPB Q12 [facility] PRN Reason: Protocol Stop: 01/12/18 10:01 Last Admin: 01/06/18 09:07 Dose: 100 mls/hr Lisinopril (Zestril) 10 mg PO DAILY [facility] Last Admin: 01/06/18 09:09 Dose: 10 mg Metoprolol Succinate (Toprol Xl) 50 mg PO BRK [facility] Last Admin: 01/06/18 09:00 Dose: 50 mg Metoprolol Succinate (Toprol Xl) 50 mg PO HS [facility] Last Admin: 01/06/18 00:55 Dose: 50 mg Pantoprazole Sodium (Protonix Ec Tab) 40 mg PO 0630 [facility] Last Admin: 01/06/18 06:13 Dose: 40 mg Potassium Chloride (K-Dur 20 Meq Er Tab) 20 meq PO BRK [facility] Thiamine HCl (Vitamin B1 Tab) 100 mg PO DAILY [facility] Last Admin: 01/06/18 09:09 Dose: 100 mg Tramadol/Acetaminophen (Ultracet 37.5/325 Mg) 1 tab PO Q6H PRN PRN Reason: Pain, moderate (4-7) Last Admin: 01/05/18 14:26 Dose: 1 tab Warfarin Sodium (Coumadin) 10 mg PO 1800 [facility] PRN Reason: Protocol Last Admin: 01/05/18 17:32 Dose: 10 mg - Labs Labs: 01/06/18 06:05 01/06/18 06:05 PT 14.2 SECONDS (9.4-12.5) H 01/06/18 06:05 INR 1.23 01/06/18 06:05 APTT 36.2 Seconds (25.1-36.5) 01/04/18 15:00 - Constitutional Appears: Well, No Acute Distress - Head Exam Head Exam: ATRAUMATIC, NORMAL INSPECTION, NORMOCEPHALIC - Eye Exam Eye Exam: EOMI, Normal appearance - ENT Exam ENT Exam: Mucous Membranes Moist - Respiratory Exam Respiratory Exam: Clear to Ausculation Bilateral, NORMAL BREATHING PATTERN. absent: Chest Wall Tenderness, Rales, Rhonchi, Wheezes, Respiratory Distress - Cardiovascular Exam Cardiovascular Exam: REGULAR RHYTHM. absent: Bradycardia, Tachycardia - GI/Abdominal Exam GI & Abdominal Exam: Soft, Normal Bowel Sounds. absent: Distended, Firm, Tenderness - Extremities Exam Additional comments: lower right leg dressing per podiatry, clean dry and intact. Erythema, no tenderness - Neurological Exam Neurological Exam: Alert, Awake, Oriented x3 Assessment and Plan - Assessment and Plan (Free Text) Assessment: 82 yo male with past medical history of hypertension, COPD, gastritis and history of DVT (04/2017 - on coumadin) presenting with progressive swelling and erythema of right lower extremity with fluid filled blisters probable cellulitis , found to have anemia, HARSH, elevated LFTs. sepsis most likely due to cellulitis of the lower extremity. Patient is continues to be afebrile with improving leukocytosis. Ultrasound of lower right extremity was negative for DVT. Will continue ceftarolin for possible MRSA. podiatry is consulted. Blood cultures show no growth over 24 hours. Will continue to monitor, consider possible deescalation of antibiotics with improvement. case seen and discussed with attending, Dr. Mcneli <Chris Mcneil - Last Filed: 01/06/18 17:06> Objective - Vital Signs/Intake and Output Vital Signs (last 24 hours): Temp Pulse Resp BP Pulse Ox 97.5 F L 69 20 156/92 H 100 01/06/18 08:28 01/06/18 09:00 01/06/18 08:28 01/06/18 09:09 01/06/18 08:28 Intake and Output: 01/06/18 01/06/18 06:59 18:59 Intake Total 1300 Output Total 250 Balance 1050 - Medications Medications: Current Medications Acetaminophen (Tylenol 325mg Tab) 650 mg PO Q4H PRN PRN Reason: Pain, Mild (1-3) Atorvastatin Calcium (Lipitor) 20 mg PO DIN [facility] Last Admin: 01/05/18 17:33 Dose: 20 mg Ceftaroline Fosamil 200 mg/ (Sodium Chloride) 100 mls @ 100 mls/hr IVPB Q12 [facility] PRN Reason: Protocol Stop: 01/12/18 10:01 Last Admin: 01/06/18 09:07 Dose: 100 mls/hr Lisinopril (Zestril) 10 mg PO DAILY [facility] Last Admin: 01/06/18 09:09 Dose: 10 mg Metoprolol Succinate (Toprol Xl) 50 mg PO BRK [facility] Last Admin: 01/06/18 09:00 Dose: 50 mg Metoprolol Succinate (Toprol Xl) 50 mg PO HS [facility] Last Admin: 01/06/18 00:55 Dose: 50 mg Pantoprazole Sodium (Protonix Ec Tab) 40 mg PO 0630 [facility] Last Admin: 01/06/18 06:13 Dose: 40 mg Potassium Chloride (K-Dur 20 Meq Er Tab) 20 meq PO BRK [facility] Last Admin: 01/06/18 11:30 Dose: 20 meq Thiamine HCl (Vitamin B1 Tab) 100 mg PO DAILY [facility] Last Admin: 01/06/18 09:09 Dose: 100 mg Tramadol/Acetaminophen (Ultracet 37.5/325 Mg) 1 tab PO Q6H PRN PRN Reason: Pain, moderate (4-7) Last Admin: 01/05/18 14:26 Dose: 1 tab Warfarin Sodium (Coumadin) 10 mg PO 1800 [facility] PRN Reason: Protocol Last Admin: 01/05/18 17:32 Dose: 10 mg - Labs Labs: 01/06/18 06:05 01/06/18 06:05 PT 14.2 SECONDS (9.4-12.5) H 01/06/18 06:05 INR 1.23 01/06/18 06:05 APTT 36.2 Seconds (25.1-36.5) 01/04/18 15:00 Assessment and Plan - Assessment and Plan (Free Text) Assessment: Infectious Diseases Attending Physician Addendum Patient seen and examined, discussed with medical office technician. I have reviewed the pertinent clinical information for the patient, including history of present illness, medical, personal and social histories, lab results and imaging findings. I agree with the above findings, assessment and plan. In addition, will continue Teflaro for this patient with probable right leg skin and skin structure infection. If cultures continue to be negative by tomorrow and with continued improvement, will de-escalate to PO antibiotics by tomorrow.
--- NOTE | 2018-01-06 14:29 | MRI ---
Date of service: 01/06/2018 PROCEDURE: MRI of the right lower extremity without contrast HISTORY: eval osteo COMPARISON: TECHNIQUE: MRI of the right lower extremity was performed in multiple planes using multiple pulse sequences. FINDINGS: The bone marrow signal intensity is normal with no evidence of osteomyelitis. There is subcutaneous edema throughout the lower leg consistent with passive edema versus cellulitis. There is also some edema in the fascia planes between the muscles. No evidence of abscess IMPRESSION: No evidence of osteomyelitis
--- NOTE | 2018-01-06 14:46 | PN ---
Copied To: Aquilino Garcia MD Attending MD: Aquilino Garcia MD DATE: 01/06/2018 SUBJECTIVE: The patient is 82 years old, seen and examined, sitting in chair, seems to be comfortable, stated right leg pain is better. PHYSICAL EXAMINATION: VITAL SIGNS: He is afebrile, pulse 69, respirations 20, blood pressure 156/92. LUNGS: Bilateral good airflow. No rhonchi or crackle. HEART: S1 and S2 audible. ABDOMEN: Soft. Nontender. No rebound. No guarding. NEUROLOGICAL: He is awake, alert, oriented, communicative. EXTREMITIES: Right leg is in the dressing, was evaluated by wound care team, and is under the care of them for wound care. LABORATORY DATA: WBC is 14.3, hemoglobin 10.7, hematocrit 31, platelet 140. PT 14.2, INR 1.23. Chemistry: Sodium 139, potassium 3.4, chloride 110, CO2 of 20, BUN 30, creatinine 1.6, blood sugar of 150. CRP is . Blood cultures are negative. Leg Doppler is negative. ASSESSMENT: 1. Right leg cellulitis. 2. Right leg blisters. 3. History of right leg deep vein thrombosis. 4. Hypertension. 5. Hyperlipidemia. 6. Anemia, status post blood transfusion. PLAN: We will discontinue IV fluids, encourage p.o. intake. Potassium will be supplemented, continue on statins and Protonix. The patient is on Teflaro. We will continue to monitor; needs local wound care. We will follow up chemistry, CBC, and CMP in a.m. Aquilino Garcia MD
--- NOTE | 2018-01-06 15:11 | US ---
PROCEDURE: Lower extremity POLLO exam HISTORY: Peripheral vascular disease with pain and claudication. Smoker PHYSICIAN(S): Silver Dempsey MD. FINDINGS: The right resting POLLO is mildly abnormal, 0.71. The left resting POLLO is normal, 0.98 The brachial systolic pressures are symmetric. The high thigh PVR waveforms are relatively normal and symmetric. However, there is a 50 mm difference between the high thigh pressures, lower on the right. Is could represent right iliac occlusive disease. There is a 39 mm gradient across the right knee. The right calf, ankle, and metatarsal waveforms are severely blunted. This is consistent with distal right SFA, popliteal, and/ or trifurcation disease. The distal waveforms on the left are relatively normal. IMPRESSION: 1. Distal right SFA, popliteal, and/or tibial disease. 2. 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 3. The right distal waveforms are severely abnormal and nearly flat. If further evaluation is indicated, an MRA with gadolinium runoff, CTA runoff, or conventional arteriogram can be considered
--- NOTE | 2018-01-06 15:50 | CP.PCM.PN ---
Subjective - Date & Time of Evaluation Date of Evaluation: 01/06/18 Time of Evaluation: 15:47 - Subjective Subjective: Podiatry Progress Note for Dr. Leach 82M seen at bedside for weeping right leg bullae. Patient is AAO x 3 and NAD, resting comfortably in bed. Denies any acute overnight events. States that pain is minimal and controlled to right leg. Denies any further pedal complaints at this time. Denies any recent N/V/F/C/CP/SOB/D/posterior calf pain Objective - Vital Signs/Intake and Output Vital Signs (last 24 hours): Temp Pulse Resp BP Pulse Ox 97.5 F L 69 20 156/92 H 100 01/06/18 08:28 01/06/18 09:00 01/06/18 08:28 01/06/18 09:09 01/06/18 08:28 Intake and Output: 01/06/18 01/06/18 06:59 18:59 Intake Total 1300 Output Total 250 Balance 1050 - Medications Medications: Current Medications Acetaminophen (Tylenol 325mg Tab) 650 mg PO Q4H PRN PRN Reason: Pain, Mild (1-3) Atorvastatin Calcium (Lipitor) 20 mg PO DIN [facility] Last Admin: 01/05/18 17:33 Dose: 20 mg Ceftaroline Fosamil 200 mg/ (Sodium Chloride) 100 mls @ 100 mls/hr IVPB Q12 [facility] PRN Reason: Protocol Stop: 01/12/18 10:01 Last Admin: 01/06/18 09:07 Dose: 100 mls/hr Lisinopril (Zestril) 10 mg PO DAILY [facility] Last Admin: 01/06/18 09:09 Dose: 10 mg Metoprolol Succinate (Toprol Xl) 50 mg PO BRK [facility] Last Admin: 01/06/18 09:00 Dose: 50 mg Metoprolol Succinate (Toprol Xl) 50 mg PO HS [facility] Last Admin: 01/06/18 00:55 Dose: 50 mg Pantoprazole Sodium (Protonix Ec Tab) 40 mg PO 0630 [facility] Last Admin: 01/06/18 06:13 Dose: 40 mg Potassium Chloride (K-Dur 20 Meq Er Tab) 20 meq PO BRK [facility] Last Admin: 01/06/18 11:30 Dose: 20 meq Thiamine HCl (Vitamin B1 Tab) 100 mg PO DAILY [facility] Last Admin: 01/06/18 09:09 Dose: 100 mg Tramadol/Acetaminophen (Ultracet 37.5/325 Mg) 1 tab PO Q6H PRN PRN Reason: Pain, moderate (4-7) Last Admin: 01/05/18 14:26 Dose: 1 tab Warfarin Sodium (Coumadin) 10 mg PO 1800 [facility] PRN Reason: Protocol Last Admin: 01/05/18 17:32 Dose: 10 mg - Labs Labs: 01/06/18 06:05 01/06/18 06:05 PT 14.2 SECONDS (9.4-12.5) H 01/06/18 06:05 INR 1.23 01/06/18 06:05 APTT 36.2 Seconds (25.1-36.5) 01/04/18 15:00 - Constitutional Appears: Well, Non-toxic, No Acute Distress - Extremities Exam Additional comments: LE focused exam: Vasc: DP/PT pulses fully palpable 2/4 b/l. Skin temperature warm to warm from proximal to distal. CFT < 3 seconds to all digits b/l. Moderate, unilateral edema noted to right leg, improved since yesterday Neuro: Epicritic and protective sensation grossly intact b/l Derm: Lanced bullae noted to right lateral leg spanning from level of midcalf down to lateral malleolus with some underlying superficial skin appreciated. Moderate serous drainage noted to bandages. No other open lesions, wounds, maceration, xerosis, abnormal pigmentation or abnormal growths noted MSK: POP to lanced blister site. ROM WNL at all major joints. MMT 5/5 in all major muscle groups. No other gross deformities noted - Neurological Exam Neurological Exam: Alert, Awake, Oriented x3 - Psychiatric Exam Psychiatric exam: Normal Affect, Normal Mood Assessment and Plan - Assessment and Plan (Free Text) Assessment: 82M seen at bedside for weeping right leg bullae Plan: Patient seen and evaluated with Dr. Leach Afebrile, WBC 14.3 from 15.8 Contine abx per ID Arterial studies show severe arterial disease to RLE Vascular Surgery consulted RLE MRI: No evidence of OM RLE bulla site dressed with Maxorb, Telfa, ABD, Kirlix No plan for surgical intervention at this time Podiatry will continue to follow while patient in house
[2018-01-07] MEDS: Pantoprazole 40 mg EC Tab PO SCH (05:36)
[2018-01-07 07:18] LABS: BASO # 0.02 K/mm3 (0.0-2.0); BASO % 0.2 % (0.0-3.0); EOS # 0.1 (0.0-0.7); EOS % 1.2 % (1.5-5.0); GRAN # 8.29 (1.4-6.5); GRAN % 77.2 % (50.0-68.0); HEMOGLOBIN 11.1 g/dL (14.0-18.0); LYMPH # 0.9 (1.2-3.4); LYMPH % 8.1 % (22.0-35.0); MEAN CORPUSCULAR HEMOGLOBIN 30.3 pg (25.0-35.0); MEAN CORPUSCULAR HGB CONC 34.5 g/dl (31.0-37.0); MEAN PLATELET VOLUME 9.7 fl (7.0-11.0); MONO # 1.4 (0.1-0.6); MONO % 13.3 % (1.0-6.0); RBC 3.66 10^6/uL (3.5-6.1); RED CELL DISTRIBUTION WIDTH 15.7 % (11.5-14.5); WHITE BLOOD COUNT 10.7 10^3/ul (4.5-11.0)
[2018-01-07 07:24] LABS: INR 1.29; PROTHROMBIN TIME 14.9 SECONDS (9.4-12.5)
[2018-01-07 07:39] LABS: ALB/GLOB RATIO 0.7 (1.1-1.8); ALBUMIN 2.7 g/dL (3.0-4.8); CALCIUM 8.3 mg/dL (8.4-10.5)
[2018-01-07] MEDS: Potassium Chloride 20 mEq ER Tab PO SCH (09:19)
[2018-01-07] MEDS: Metoprolol Succinate 50 mg XL Tab PO SCH ×2 (09:20→22:16)
[2018-01-07] MEDS: TraMADol/Apap 37.5/325 mg Tab PO PRN (09:20)
--- NOTE | 2018-01-07 12:10 | PN ---
Copied To: Aquilino Garcia MD Attending MD: Aquilino Garcia MD DATE: 01/07/2018 SUBJECTIVE: The patient is 82 years old, seen and examined, doing well, sitting in chair. Right leg is in the dressing. PHYSICAL EXAMINATION: VITAL SIGNS: He is afebrile, pulse 68, respirations 20, blood pressure 163/87. LUNGS: Bilateral fair airflow. No rhonchi or crackle. HEART: S1 and S2 audible. ABDOMEN: Soft. Nontender. No rebound. No guarding. NEUROLOGICAL: The patient is awake, alert, oriented, communicative. EXTREMITIES: His right leg is in the dressing. LABORATORY EXAM: WBC is 10.7, hemoglobin 11, hematocrit 32, platelet of 111. PT is 14.9, INR 1.29. Chemistry: Sodium 138, potassium 4, chloride 109, CO2 of 20, BUN 24, creatinine 1.5, blood sugar of 90. ASSESSMENT: 1. Right leg cellulitis and blister on right terrazas and right lower extremity MRI, no evidence of osteomyelitis. 2. Renal insufficiency, improving. 3. History of right leg deep venous thrombosis. 4. Hypertension. 5. History of alcohol dependence and abuse. 6. Chronic anemia, status post two blood transfusions. PLAN: We will continue the patient on Teflaro. TCU evaluation has been requested. If accepted, he can be transferred to TCU today. Aquilino Garcia MD
--- NOTE | 2018-01-07 12:12 | CP.PCM.PN ---
Subjective - Date & Time of Evaluation Date of Evaluation: 01/07/18 Time of Evaluation: 12:08 - Subjective Subjective: Podiatry Progress Note for Dr. Leach 82M seen at bedside for weeping right leg bullae. Patient is AAO x 3 and NAD, resting comfortably in bed. Denies any acute overnight events. States that pain continues to improve. Denies any further pedal complaints at this time. Denies any recent N/V/F/C/CP/SOB/D/posterior calf pain Objective - Vital Signs/Intake and Output Vital Signs (last 24 hours): Temp Pulse Resp BP Pulse Ox 97.5 F L 68 20 163/87 H 97 01/07/18 06:00 01/07/18 09:21 01/07/18 06:00 01/07/18 09:21 01/07/18 06:00 - Medications Medications: Current Medications Acetaminophen (Tylenol 325mg Tab) 650 mg PO Q4H PRN PRN Reason: Pain, Mild (1-3) Atorvastatin Calcium (Lipitor) 20 mg PO DIN [facility] Last Admin: 01/06/18 17:31 Dose: 20 mg Ceftaroline Fosamil 200 mg/ (Sodium Chloride) 100 mls @ 100 mls/hr IVPB Q12 [facility] PRN Reason: Protocol Stop: 01/12/18 10:01 Last Admin: 01/07/18 10:48 Dose: 100 mls/hr Lisinopril (Zestril) 20 mg PO DAILY [facility] Metoprolol Succinate (Toprol Xl) 50 mg PO BRK [facility] Last Admin: 01/07/18 09:20 Dose: 50 mg Metoprolol Succinate (Toprol Xl) 50 mg PO HS [facility] Last Admin: 01/06/18 21:45 Dose: 50 mg Pantoprazole Sodium (Protonix Ec Tab) 40 mg PO 0630 [facility] Last Admin: 01/07/18 05:36 Dose: 40 mg Potassium Chloride (K-Dur 20 Meq Er Tab) 20 meq PO BRK [facility] Last Admin: 01/07/18 09:19 Dose: 20 meq Thiamine HCl (Vitamin B1 Tab) 100 mg PO DAILY [facility] Last Admin: 01/07/18 09:21 Dose: 100 mg Tramadol/Acetaminophen (Ultracet 37.5/325 Mg) 1 tab PO Q6H PRN PRN Reason: Pain, moderate (4-7) Last Admin: 01/07/18 09:20 Dose: 1 tab Warfarin Sodium (Coumadin) 10 mg PO 1800 [facility] PRN Reason: Protocol Last Admin: 01/06/18 17:30 Dose: 10 mg - Labs Labs: 01/07/18 06:45 01/07/18 06:45 PT 14.9 SECONDS (9.4-12.5) H 01/07/18 06:45 INR 1.29 01/07/18 06:45 APTT 36.2 Seconds (25.1-36.5) 01/04/18 15:00 - Constitutional Appears: Well, Non-toxic, No Acute Distress - Extremities Exam Additional comments: LE focused exam: Vasc: DP/PT pulses fully palpable 2/4 b/l. Skin temperature warm to warm from proximal to distal. CFT < 3 seconds to all digits b/l. Moderate, unilateral edema noted to right leg, improved since yesterday Neuro: Epicritic and protective sensation grossly intact b/l Derm: Lanced bullae noted to right lateral leg spanning from level of midcalf down to lateral malleolus with some underlying superficial skin appreciated. Moderate serous drainage noted to bandages, improved since yesterday. No other open lesions, wounds, maceration, xerosis, abnormal pigmentation or abnormal growths noted MSK: POP to lanced blister site. ROM WNL at all major joints. MMT 5/5 in all major muscle groups. No other gross deformities noted - Neurological Exam Neurological Exam: Alert, Awake, Oriented x3 - Psychiatric Exam Psychiatric exam: Normal Affect, Normal Mood Assessment and Plan - Assessment and Plan (Free Text) Assessment: 82M seen at bedside for weeping right leg bullae Plan: Patient seen with Dr. Leach Afebrile, absent leukocytosis Dressed wound with optifoam Discussed with Dr. 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
--- NOTE | 2018-01-07 13:06 | CP.PCM.PN ---
<Samantha Pierre - Last Filed: 01/07/18 13:08> Subjective - Date & Time of Evaluation Date of Evaluation: 01/07/18 Time of Evaluation: 09:00 - Subjective Subjective: PGY-3 Infectious disease progress note for Dr. Mcneil's service Patient seen and examined at bedside, no acute distress. Patient states that the pain in his lower left extremity is intermittent, worse with movement. Yesterday podiatry dressed the wounds. He denies chest pain, fever, chills, n/v , sob. He is tolerating his diet. Objective - Vital Signs/Intake and Output Vital Signs (last 24 hours): Temp Pulse Resp BP Pulse Ox 97.5 F L 68 20 163/87 H 97 01/07/18 06:00 01/07/18 09:21 01/07/18 06:00 01/07/18 09:21 01/07/18 06:00 - Medications Medications: Current Medications Acetaminophen (Tylenol 325mg Tab) 650 mg PO Q4H PRN PRN Reason: Pain, Mild (1-3) Atorvastatin Calcium (Lipitor) 20 mg PO DIN [facility] Last Admin: 01/06/18 17:31 Dose: 20 mg Ceftaroline Fosamil 200 mg/ (Sodium Chloride) 100 mls @ 100 mls/hr IVPB Q12 [facility] PRN Reason: Protocol Stop: 01/12/18 10:01 Last Admin: 01/07/18 10:48 Dose: 100 mls/hr Lisinopril (Zestril) 20 mg PO DAILY [facility] Metoprolol Succinate (Toprol Xl) 50 mg PO BRK [facility] Last Admin: 01/07/18 09:20 Dose: 50 mg Metoprolol Succinate (Toprol Xl) 50 mg PO HS [facility] Last Admin: 01/06/18 21:45 Dose: 50 mg Pantoprazole Sodium (Protonix Ec Tab) 40 mg PO 0630 [facility] Last Admin: 01/07/18 05:36 Dose: 40 mg Potassium Chloride (K-Dur 20 Meq Er Tab) 20 meq PO BRK [facility] Last Admin: 01/07/18 09:19 Dose: 20 meq Thiamine HCl (Vitamin B1 Tab) 100 mg PO DAILY [facility] Last Admin: 01/07/18 09:21 Dose: 100 mg Tramadol/Acetaminophen (Ultracet 37.5/325 Mg) 1 tab PO Q6H PRN PRN Reason: Pain, moderate (4-7) Last Admin: 01/07/18 09:20 Dose: 1 tab Warfarin Sodium (Coumadin) 10 mg PO 1800 [facility] PRN Reason: Protocol Last Admin: 01/06/18 17:30 Dose: 10 mg - Labs Labs: 01/07/18 06:45 01/07/18 06:45 PT 14.9 SECONDS (9.4-12.5) H 01/07/18 06:45 INR 1.29 01/07/18 06:45 APTT 36.2 Seconds (25.1-36.5) 01/04/18 15:00 - Constitutional Appears: Well, No Acute Distress - Head Exam Head Exam: ATRAUMATIC, NORMAL INSPECTION, NORMOCEPHALIC - Eye Exam Eye Exam: EOMI, Normal appearance - ENT Exam ENT Exam: Mucous Membranes Moist - Respiratory Exam Respiratory Exam: Clear to Ausculation Bilateral, NORMAL BREATHING PATTERN. absent: Decreased Breath Sounds, Rales, Rhonchi, Wheezes, Respiratory Distress - Cardiovascular Exam Cardiovascular Exam: REGULAR RHYTHM, +S1, +S2. absent: Bradycardia, Tachycardia - GI/Abdominal Exam GI & Abdominal Exam: Soft, Normal Bowel Sounds. absent: Distended, Firm, Guarding, Tenderness, Hernia - Extremities Exam Additional comments: lower right leg dressing per podiatry, clean dry and intact. - Neurological Exam Neurological Exam: Alert, Awake, Oriented x3 - Skin Skin Exam: Normal Color, Warm Assessment and Plan - Assessment and Plan (Free Text) Assessment: 82 yo male with past medical history of hypertension, COPD, gastritis and history of DVT (04/2017 - on coumadin) presenting with progressive swelling and erythema of right lower extremity with fluid filled blisters probable cellulitis , found to have anemia, HARSH, elevated LFTs. Sepsis most likely due to cellulitis of the lower extremity. Patient is continues to be afebrile with improving leukocytosis. MRI did not show evidence of osteomylitis. Arterila dopplers showed disease in distal SFA, popliteal. IR was consulted. Will continue ceftarolin for possible MRSA. podiatry is following. Blood cultures show no growth. case seen and discussed with attending, Dr. Mcneil <Chris Mcneil - Last Filed: 01/07/18 15:00> Objective - Vital Signs/Intake and Output Vital Signs (last 24 hours): Temp Pulse Resp BP Pulse Ox 97.5 F L 68 20 163/87 H 97 01/07/18 06:00 01/07/18 09:21 01/07/18 06:00 01/07/18 09:21 01/07/18 06:00 - Medications Medications: Current Medications Acetaminophen (Tylenol 325mg Tab) 650 mg PO Q4H PRN PRN Reason: Pain, Mild (1-3) Atorvastatin Calcium (Lipitor) 20 mg PO DIN [facility] Last Admin: 01/06/18 17:31 Dose: 20 mg Ceftaroline Fosamil 200 mg/ (Sodium Chloride) 100 mls @ 100 mls/hr IVPB Q12 [facility] PRN Reason: Protocol Stop: 01/12/18 10:01 Last Admin: 01/07/18 10:48 Dose: 100 mls/hr Lisinopril (Zestril) 20 mg PO DAILY [facility] Metoprolol Succinate (Toprol Xl) 50 mg PO BRK [facility] Last Admin: 01/07/18 09:20 Dose: 50 mg Metoprolol Succinate (Toprol Xl) 50 mg PO HS [facility] Last Admin: 01/06/18 21:45 Dose: 50 mg Pantoprazole Sodium (Protonix Ec Tab) 40 mg PO 0630 [facility] Last Admin: 01/07/18 05:36 Dose: 40 mg Potassium Chloride (K-Dur 20 Meq Er Tab) 20 meq PO BRK [facility] Last Admin: 01/07/18 09:19 Dose: 20 meq Thiamine HCl (Vitamin B1 Tab) 100 mg PO DAILY [facility] Last Admin: 01/07/18 09:21 Dose: 100 mg Tramadol/Acetaminophen (Ultracet 37.5/325 Mg) 1 tab PO Q6H PRN PRN Reason: Pain, moderate (4-7) Last Admin: 01/07/18 09:20 Dose: 1 tab Warfarin Sodium (Coumadin) 10 mg PO 1800 [facility] PRN Reason: Protocol Last Admin: 01/06/18 17:30 Dose: 10 mg - Labs Labs: 01/07/18 06:45 01/07/18 06:45 PT 14.9 SECONDS (9.4-12.5) H 01/07/18 06:45 INR 1.29 01/07/18 06:45 APTT 36.2 Seconds (25.1-36.5) 01/04/18 15:00 Assessment and Plan - Assessment and Plan (Free Text) Assessment: Infectious Diseases Attending Physician Addendum Patient seen and examined, discussed with regional medical director. I have reviewed the pertinent clinical information for the patient, including history of present illness, medical, personal and social histories, lab results and imaging findings. I agree with the above findings, assessment and plan. In addition, will continue Teflaro for this patient with right leg cellulitis, R/O peripheral arterial disease. Follow up Vascular surgery evaluation and recommendations.
--- NOTE | 2018-01-07 13:17 | CON ---
Copied To: Silver Dempsey MD Attending MD: Silver Dempsey MD DATE: 01/07/201812:00 p.m. CHIEF COMPLAINT/HISTORY OF PRESENT ILLNESS: This is an 82-year-old who was admitted with a blister/ulceration of the right pretibial area. His history is significant for an extensive right lower extremity DVT, diagnosed in 04/2017. Supposedly, he has been on Coumadin since that time. I have been informed by Dr. Garcia that the patient is an alcoholic and noncompliant with his medicines. 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 He is being followed and wound care provided by Dr. Leach. The patient continues to smoke. His POLLO/PVR exam demonstrates right SFA and tibial disease. His foot is warm and somewhat swollen. Dr. Leach is concerned about compression therapy in the setting of significant PVD. Mr. Espitia's creatinine is elevated, on admission, it was 2. PAST MEDICAL HISTORY: Significant for hypertension, COPD and cirrhosis. Initially, we will try a class 1 compression stocking and see if he tolerates it. Wound care will be provided by Dr. Leach. The patient must be anticoagulated, given his postphlebitic disease and history of DVT. Unfortunately, this involves increased risk given his social habits. If his wound deteriorates or does not heal, he can be evaluated for arteriography and possible intervention on the right lower extremity. Case was discussed with Dr. Leach and Dr. Garcia. Silver Dempsey MD [facility]
[2018-01-08] MEDS: Pantoprazole 40 mg EC Tab PO SCH (06:41)
[2018-01-08 08:48] VITALS: O2SAT 96
[2018-01-08] MEDS: Potassium Chloride 20 mEq ER Tab PO SCH (09:50)
[2018-01-08] MEDS: Metoprolol Succinate 50 mg XL Tab PO SCH ×2 (09:51→17:23)
--- NOTE | 2018-01-08 12:53 | CP.PCM.PN ---
<Samantha Pierre - Last Filed: 01/08/18 13:45> Subjective - Date & Time of Evaluation Date of Evaluation: 01/08/18 Time of Evaluation: 09:00 - Subjective Subjective: PGY-3 Infectious disease progress note for Dr. Mcneil's service Patient seen and examined at bedside, no acute distress. Patient states that the pain in his lower left extremity has improved. Yesterday he wore the compression stocking for his leg but states that it was too painful and uncomfortable for him to wear. He denies chest pain, fever, chills, n/v, sob. He is tolerating his diet. Objective - Vital Signs/Intake and Output Vital Signs (last 24 hours): Temp Pulse Resp BP Pulse Ox 97.8 F 68 18 174/88 H 96 01/08/18 08:48 01/08/18 09:53 01/08/18 08:48 01/08/18 09:53 01/08/18 08:48 Intake and Output: 01/08/18 01/08/18 06:59 18:59 Intake Total 120 Balance 120 - Medications Medications: Current Medications Acetaminophen (Tylenol 325mg Tab) 650 mg PO Q4H PRN PRN Reason: Pain, Mild (1-3) Amoxicillin/Clavulanate Potassium (Augmentin 500 Mg-125 Mg Tab) 1 tab PO Q12 [facility] PRN Reason: Protocol Atorvastatin Calcium (Lipitor) 20 mg PO DIN [facility] Last Admin: 01/07/18 17:17 Dose: 20 mg Doxycycline Hyclate (Doryx) 100 mg PO Q12 [facility] PRN Reason: Protocol Lisinopril (Zestril) 20 mg PO DAILY [facility] Last Admin: 01/08/18 09:53 Dose: 20 mg Metoprolol Succinate (Toprol Xl) 50 mg PO BRK [facility] Last Admin: 01/08/18 09:51 Dose: 50 mg Metoprolol Succinate (Toprol Xl) 50 mg PO HS [facility] Last Admin: 01/07/18 22:16 Dose: 50 mg Pantoprazole Sodium (Protonix Ec Tab) 40 mg PO 0630 [facility] Last Admin: 01/08/18 06:41 Dose: 40 mg Potassium Chloride (K-Dur 20 Meq Er Tab) 20 meq PO BRK [facility] Last Admin: 01/08/18 09:50 Dose: 20 meq Thiamine HCl (Vitamin B1 Tab) 100 mg PO DAILY [facility] Last Admin: 01/08/18 09:52 Dose: 100 mg Tramadol/Acetaminophen (Ultracet 37.5/325 Mg) 1 tab PO Q6H PRN PRN Reason: Pain, moderate (4-7) Last Admin: 01/07/18 09:20 Dose: 1 tab Warfarin Sodium (Coumadin) 10 mg PO 1800 [facility] PRN Reason: Protocol Last Admin: 01/07/18 17:17 Dose: 10 mg - Labs Labs: 01/07/18 06:45 01/07/18 06:45 PT 14.9 SECONDS (9.4-12.5) H 01/07/18 06:45 INR 1.29 01/07/18 06:45 APTT 36.2 Seconds (25.1-36.5) 01/04/18 15:00 - Constitutional Appears: No Acute Distress - Head Exam Head Exam: ATRAUMATIC, NORMAL INSPECTION, NORMOCEPHALIC - Eye Exam Eye Exam: EOMI, Normal appearance - ENT Exam ENT Exam: Mucous Membranes Moist - Respiratory Exam Respiratory Exam: Clear to Ausculation Bilateral, NORMAL BREATHING PATTERN. absent: Rhonchi, Wheezes, Respiratory Distress - Cardiovascular Exam Cardiovascular Exam: REGULAR RHYTHM, +S1, +S2. absent: Bradycardia, Tachycardia , Murmur - GI/Abdominal Exam GI & Abdominal Exam: Soft. absent: Distended, Firm, Guarding, Tenderness - Extremities Exam Additional comments: right lower leg continues to have erythema however improving, bulla have ruptured - Neurological Exam Neurological Exam: Alert, Awake, Oriented x3 Assessment and Plan - Assessment and Plan (Free Text) Assessment: 82 yo male with past medical history of hypertension, COPD, gastritis and history of DVT (on coumadin) presenting with progressive swelling and erythema of right lower extremity with fluid filled blisters probable cellulitis, found to have anemia, HARSH, elevated LFTs. Sepsis most likely due to cellulitis of the lower extremity. Patient is continues to be afebrile with improving leukocytosis. MRI on 01/06/18 did not show evidence of osteomyelitis. Arterial dopplers showed disease in distal SFA, popliteal. IR was consulted, recommended class 1 compression stocking and continuing anticoagulation. Will discontinue ceftarolin and start doxycycline and Augmentin. continue local wound care. podiatry is following. Blood cultures show no growth. Patient will require outpatient follow up, Due to his PAD patient is at risk of ulceration and skin breakdown which can lead to infection case seen and discussed with attending, Dr. Mcneil <Chris Mcneil - Last Filed: 01/08/18 17:26> Objective - Vital Signs/Intake and Output Vital Signs (last 24 hours): Temp Pulse Resp BP Pulse Ox 97.8 F 68 18 174/88 H 96 01/08/18 08:48 01/08/18 09:53 01/08/18 08:48 01/08/18 09:53 01/08/18 08:48 Intake and Output: 01/08/18 01/08/18 06:59 18:59 Intake Total 120 Balance 120 - Medications Medications: Current Medications Acetaminophen (Tylenol 325mg Tab) 650 mg PO Q4H PRN PRN Reason: Pain, Mild (1-3) Amoxicillin/Clavulanate Potassium (Augmentin 500 Mg-125 Mg Tab) 1 tab PO Q12 [facility] PRN Reason: Protocol Atorvastatin Calcium (Lipitor) 20 mg PO DIN [facility] Last Admin: 01/07/18 17:17 Dose: 20 mg Doxycycline Hyclate (Doryx) 100 mg PO Q12 [facility] PRN Reason: Protocol Lisinopril (Zestril) 20 mg PO DAILY [facility] Last Admin: 01/08/18 09:53 Dose: 20 mg Metoprolol Succinate (Toprol Xl) 50 mg PO BRK [facility] Last Admin: 01/08/18 09:51 Dose: 50 mg Metoprolol Succinate (Toprol Xl) 50 mg PO HS [facility] Last Admin: 01/07/18 22:16 Dose: 50 mg Pantoprazole Sodium (Protonix Ec Tab) 40 mg PO 0630 [facility] Last Admin: 01/08/18 06:41 Dose: 40 mg Potassium Chloride (K-Dur 20 Meq Er Tab) 20 meq PO BRK [facility] Last Admin: 01/08/18 09:50 Dose: 20 meq Thiamine HCl (Vitamin B1 Tab) 100 mg PO DAILY [facility] Last Admin: 01/08/18 09:52 Dose: 100 mg Tramadol/Acetaminophen (Ultracet 37.5/325 Mg) 1 tab PO Q6H PRN PRN Reason: Pain, moderate (4-7) Last Admin: 01/07/18 09:20 Dose: 1 tab Warfarin Sodium (Coumadin) 10 mg PO 1800 [facility] PRN Reason: Protocol Last Admin: 01/07/18 17:17 Dose: 10 mg - Labs Labs: 01/07/18 06:45 01/07/18 06:45 PT 14.9 SECONDS (9.4-12.5) H 01/07/18 06:45 INR 1.29 01/07/18 06:45 APTT 36.2 Seconds (25.1-36.5) 01/04/18 15:00 Assessment and Plan - Assessment and Plan (Free Text) Assessment: Infectious Diseases Attending Physician Addendum Patient seen and examined, discussed with biomedical equipment specialist. I have reviewed the pertinent clinical information for the patient, including history of present illness, medical, personal and social histories, lab results and imaging findings. I agree with the above findings, assessment and plan. In addition, will continue the patient on Teflaro for this patient with right leg cellulitis. May be able to switch to PO Augmentin and PO doxycycline when ready for discharge. Will need follow up with Vascular surgery.
--- NOTE | 2018-01-08 13:36 | PN ---
Copied To: Aquilino Garcia MD Attending MD: Aquilino Garcia MD DATE: 01/08/2018 SUBJECTIVE: The patient is 82 years old, who was admitted with right leg swelling and blister. Has been on IV antibiotic and IV Lasix, doing well. Leg swelling has significantly improved. Blister has ruptured. There is raw area on his terrazas that has discharge. PHYSICAL EXAMINATION: VITAL SIGNS: He is afebrile, pulse 60, respirations 18, blood pressure 174/88. LUNGS: Bilateral good airflow. No rhonchi or crackle. HEART: S1 and S2 audible. ABDOMEN: Soft. Nontender. No rebound. No guarding. NEUROLOGICAL: The patient is awake, alert, oriented, communicative. EXTREMITIES: Moves all extremities. Right leg has granulating wound. ASSESSMENT: 1. Right leg possible phlebitic syndrome. 2. Right terrazas ulcer. 3. History of right leg deep venous thrombosis. 4. Hypertension. 5. History of alcohol abuse. 6. History of heavy smoking. PLAN: The patient will receive Coumadin 10 mg today. He is on doxycycline currently and he needs local wound care. He has been started on Augmentin. TCU evaluation has been requested. Once accepted, he can be transferred to TCU either today or tomorrow. Aquilino Garcia MD
[2018-01-08 17:26] VITALS: BP 198/98; PULSE 69
[2018-01-08 17:53] VITALS: RESP 19; TEMP 97.5
--- NOTE | 2018-01-08 18:02 | CP.PCM.PN ---
<Felix Ibanez - Last Filed: 01/08/18 17:59> Subjective - Date & Time of Evaluation Date of Evaluation: 01/08/18 Time of Evaluation: 17:59 - Subjective Subjective: Podiatry Progress Note for Dr. Pham 82M seen at bedside for weeping right leg bullae. Patient is AAO x 3 and NAD, resting comfortably in bed. Denies any acute overnight events. States that pain continues to improve. Denies any further pedal complaints at this time. Denies any recent N/V/F/C/CP/SOB/D/posterior calf pain. Per nursing, patient's dressings were changed roughly two hours ago Objective - Vital Signs/Intake and Output Vital Signs (last 24 hours): Temp Pulse Resp BP Pulse Ox 97.5 F L 69 19 198/98 H 96 01/08/18 17:52 01/08/18 17:52 01/08/18 17:52 01/08/18 17:52 01/08/18 17:52 Intake and Output: 01/08/18 01/08/18 06:59 18:59 Intake Total 120 Balance 120 - Medications Medications: Current Medications Acetaminophen (Tylenol 325mg Tab) 650 mg PO Q4H PRN PRN Reason: Pain, Mild (1-3) Amoxicillin/Clavulanate Potassium (Augmentin 500 Mg-125 Mg Tab) 1 tab PO Q12 [facility] PRN Reason: Protocol Atorvastatin Calcium (Lipitor) 20 mg PO DIN [facility] Last Admin: 01/08/18 17:21 Dose: 20 mg Doxycycline Hyclate (Doryx) 100 mg PO Q12 [facility] PRN Reason: Protocol Lisinopril (Zestril) 20 mg PO DAILY [facility] Last Admin: 01/08/18 09:53 Dose: 20 mg Metoprolol Succinate (Toprol Xl) 50 mg PO BRK [facility] Last Admin: 01/08/18 09:51 Dose: 50 mg Metoprolol Succinate (Toprol Xl) 50 mg PO HS [facility] Last Admin: 01/08/18 17:23 Dose: 50 mg Pantoprazole Sodium (Protonix Ec Tab) 40 mg PO 0630 [facility] Last Admin: 01/08/18 06:41 Dose: 40 mg Potassium Chloride (K-Dur 20 Meq Er Tab) 20 meq PO BRK [facility] Last Admin: 01/08/18 09:50 Dose: 20 meq Thiamine HCl (Vitamin B1 Tab) 100 mg PO DAILY [facility] Last Admin: 01/08/18 09:52 Dose: 100 mg Tramadol/Acetaminophen (Ultracet 37.5/325 Mg) 1 tab PO Q6H PRN PRN Reason: Pain, moderate (4-7) Last Admin: 01/07/18 09:20 Dose: 1 tab Warfarin Sodium (Coumadin) 10 mg PO 1800 [facility] PRN Reason: Protocol Last Admin: 01/08/18 17:20 Dose: 10 mg - Labs Labs: 01/07/18 06:45 01/07/18 06:45 PT 14.9 SECONDS (9.4-12.5) H 01/07/18 06:45 INR 1.29 01/07/18 06:45 APTT 36.2 Seconds (25.1-36.5) 01/04/18 15:00 - Constitutional Appears: Well, Non-toxic, No Acute Distress - Extremities Exam Additional comments: RLE focused exam No compression noted to right leg Dressings left C/D/I to RLE for time being CFT < 3 seconds to all digits Skin temperature warm at distal foot No evidence of ischemic changes noted - Neurological Exam Neurological Exam: Alert, Awake, Oriented x3 - Psychiatric Exam Psychiatric exam: Normal Affect, Normal Mood Assessment and Plan - Assessment and Plan (Free Text) Assessment: 82M seen at bedside for weeping right leg bullae Plan: Patient seen and evaluated Plan discussed with Dr. Pham Afebrile, absent leukocytosis F/u with Dr. Dempsey about applying compression to right leg Dressings left C/D/I for now as nursing had recently changed them No plan for surgical intervention at this time Podiatry will continue to follow while patient in house <Van Pham - Last Filed: 01/08/18 19:30> Objective - Vital Signs/Intake and Output Vital Signs (last 24 hours): Temp Pulse Resp BP Pulse Ox 97.5 F L 69 19 198/98 H 96 01/08/18 17:52 01/08/18 17:52 01/08/18 17:52 01/08/18 17:52 01/08/18 17:52 Intake and Output: 01/08/18 01/09/18 18:59 06:59 Intake Total 1840 Balance 1840 - Labs Labs: 01/07/18 06:45 08/09/18 06:45 PT 14.9 SECONDS (9.4-12.5) H 01/07/18 06:45 INR 1.29 01/07/18 06:45 APTT 36.2 Seconds (25.1-36.5) 01/04/18 15:00 Attending/Attestation - Attestation I have personally seen and examined this patient.: Yes I have fully participated in the care of the patient.: Yes I have reviewed all pertinent clinical information, including history, physical exam and plan: Yes
[2018-01-08] MEDS ORDERED: Amoxicillin-Clav 500-125 mg Tab PO SCH (22:00)
== END 2018-01-08 19:09 | DRG 872 ==
LOC: ED 13:49 → ERH 16:03 → 3RSO 18:04
PROVIDERS: ADMIT Internal Medicine; ATTEND Internal Medicine
DX: A41.9 Sepsis, unspecified organism (principal); L03.115 Cellulitis of right lower limb; N17.9 Acute kidney failure, unspecified; D68.9 Coagulation defect, unspecified; L97.819 Non-pressure chronic ulcer of other part of right lower leg with unspecified severity; J44.9 Chronic obstructive pulmonary disease, unspecified; I10 Essential (primary) hypertension; S80.821A Blister (nonthermal), right lower leg, initial encounter; Z86.718 Personal history of other venous thrombosis and embolism; D64.9 Anemia, unspecified; E78.5 Hyperlipidemia, unspecified; F10.20 Alcohol dependence, uncomplicated; F17.210 Nicotine dependence, cigarettes, uncomplicated; K74.60 Unspecified cirrhosis of liver; N40.0 Benign prostatic hyperplasia without lower urinary tract symptoms; Z79.01 Long term (current) use of anticoagulants; Z79.899 Other long term (current) drug therapy; Z83.2 Family history of diseases of the blood and blood-forming organs and certain disorders involving the immune mechanism; Z91.14 Patient's other noncompliance with medication regimen; Z91.19 Patient's noncompliance with other medical treatment and regimen

== ENCOUNTER 2018-01-08 19:09 | Inpatient (IN) | payer MEDICARE ==
[2018-01-08] MEDS: Metoprolol Succinate 50 mg XL Tab PO SCH (22:00)
[2018-01-08] MEDS: Amoxicillin-Clav 500-125 mg Tab PO SCH (23:02)
[2018-01-09] MEDS: Pantoprazole 40 mg EC Tab PO SCH (05:38)
[2018-01-09] MEDS: Metoprolol Succinate 50 mg XL Tab PO SCH ×2 (08:21→21:19)
[2018-01-09] MEDS: Potassium Chloride 20 mEq ER Tab PO SCH (08:22)
[2018-01-09 08:56] LABS: BASO # 0.02 K/mm3 (0.0-2.0); BASO % 0.2 % (0.0-3.0); EOS # 0.1 (0.0-0.7); EOS % 1.4 % (1.5-5.0); GRAN # 7.82 (1.4-6.5); GRAN % 77.2 % (50.0-68.0); HEMOGLOBIN 12.6 g/dL (14.0-18.0); LYMPH # 0.8 (1.2-3.4); LYMPH % 7.8 % (22.0-35.0); MEAN CORPUSCULAR HEMOGLOBIN 30.9 pg (25.0-35.0); MEAN CORPUSCULAR HGB CONC 34.7 g/dl (31.0-37.0); MEAN PLATELET VOLUME 9.6 fl (7.0-11.0); MONO # 1.4 (0.1-0.6); MONO % 13.4 % (1.0-6.0); RBC 4.08 10^6/uL (3.5-6.1); RED CELL DISTRIBUTION WIDTH 15.2 % (11.5-14.5); WHITE BLOOD COUNT 10.1 10^3/ul (4.5-11.0)
[2018-01-09 09:14] LABS: PROTHROMBIN TIME 44.5 SECONDS (9.4-12.5)
[2018-01-09 09:16] LABS: INR 3.77
[2018-01-09 09:31] LABS: ALB/GLOB RATIO 0.8 (1.1-1.8); ALBUMIN 3.5 g/dL (3.0-4.8); CALCIUM 8.9 mg/dL (8.4-10.5)
[2018-01-09] MEDS: Amoxicillin-Clav 500-125 mg Tab PO SCH ×2 (10:30→21:16)
--- NOTE | 2018-01-09 11:00 | CP.PCM.PN ---
<Clare Mosley - Last Filed: 01/09/18 10:56> Subjective - Date & Time of Evaluation Date of Evaluation: 01/09/18 Time of Evaluation: 10:57 - Subjective Subjective: Podiatry Progress Note for Dr. Pham 82M seen at bedside for weeping right leg bullae. Patient is AAO x 3 and NAD, resting comfortably in bed. Denies any acute overnight events. States that pain continues to improve. Denies any further pedal complaints at this time. Denies any recent N/V/F/C/CP/SOB/D/posterior calf pain Objective - Vital Signs/Intake and Output Vital Signs (last 24 hours): Temp Pulse Resp BP Pulse Ox 98.4 F 80 20 185/82 H 01/09/18 02:22 01/09/18 08:21 01/09/18 02:22 01/09/18 10:31 - Medications Medications: Current Medications Acetaminophen (Tylenol 325mg Tab) 650 mg PO Q4H PRN; Protocol PRN Reason: Pain, Mild (1-3) Amoxicillin/Clavulanate Potassium (Augmentin 500 Mg-125 Mg Tab) 1 tab PO Q12 CACHORRO PRN Reason: Protocol Last Admin: 01/09/18 10:30 Dose: 1 tab Atorvastatin Calcium (Lipitor) 20 mg PO DIN CACHORRO PRN Reason: Protocol Doxycycline Hyclate (Doryx) 100 mg PO Q12 CACHORRO PRN Reason: Protocol Last Admin: 01/09/18 10:30 Dose: 100 mg Lisinopril (Zestril) 20 mg PO DAILY CACHORRO PRN Reason: Protocol Last Admin: 01/09/18 10:31 Dose: 20 mg Metoprolol Succinate (Toprol Xl) 50 mg PO BRK CACHORRO PRN Reason: Protocol Last Admin: 01/09/18 08:21 Dose: 50 mg Metoprolol Succinate (Toprol Xl) 50 mg PO HS CACHORRO PRN Reason: Protocol Last Admin: 01/08/18 22:00 Dose: Not Given Pantoprazole Sodium (Protonix Ec Tab) 40 mg PO 0630 CACHORRO PRN Reason: Protocol Last Admin: 01/09/18 05:38 Dose: 40 mg Potassium Chloride (K-Dur 20 Meq Er Tab) 20 meq PO BRK CACHORRO PRN Reason: Protocol Last Admin: 01/09/18 08:22 Dose: 20 meq Thiamine HCl (Vitamin B1 Tab) 100 mg PO DAILY CACHORRO PRN Reason: Protocol Last Admin: 01/09/18 10:31 Dose: 100 mg Tramadol/Acetaminophen (Ultracet 37.5/325 Mg) 1 tab PO Q6H PRN; Protocol PRN Reason: Pain, moderate (4-7) Warfarin Sodium (Coumadin) 10 mg PO 1800 CACHORRO PRN Reason: Protocol - Labs Labs: 01/09/18 08:40 01/09/18 08:40 PT 44.5 SECONDS (9.4-12.5) H 01/09/18 08:40 INR 3.77 H* 01/09/18 08:40 - Constitutional Appears: Well, Non-toxic, No Acute Distress - Head Exam Head Exam: ATRAUMATIC, NORMOCEPHALIC - Extremities Exam Additional comments: LE focused exam: Vasc: DP/PT pulses fully palpable 2/4 b/l. Skin temperature warm to warm from proximal to distal. CFT < 3 seconds to all digits b/l. Moderate, unilateral edema noted to right leg, improved since yesterday Neuro: Epicritic and protective sensation grossly intact b/l Derm: Lanced bullae noted to right lateral leg spanning from level of midcalf down to lateral malleolus with some underlying superficial skin appreciated. Moderate serous drainage noted to bandages, improved since yesterday. No other open lesions, wounds, maceration, xerosis, abnormal pigmentation or abnormal growths noted MSK: POP to lanced blister site. ROM WNL at all major joints. MMT 5/5 in all major muscle groups. No other gross deformities noted - Neurological Exam Neurological Exam: Alert, Awake, Oriented x3 - Psychiatric Exam Psychiatric exam: Normal Affect, Normal Mood Assessment and Plan - Assessment and Plan (Free Text) Assessment: 82M seen at bedside for weeping right leg bullae Plan: Patient seen with Dr. 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 MRI: No evidence of OM Right lower extremity cleansed with saline and dressed with xeroform and DSD No plan for surgical intervention at this time Podiatry will continue to follow while patient in house <Van Pham - Last Filed: 01/09/18 13:52> Objective - Vital Signs/Intake and Output Vital Signs (last 24 hours): Temp Pulse Resp BP Pulse Ox 98.4 F 80 20 185/82 H 01/09/18 02:22 01/09/18 08:21 01/09/18 02:22 01/09/18 10:31 - Medications Medications: Current Medications Acetaminophen (Tylenol 325mg Tab) 650 mg PO Q4H PRN; Protocol PRN Reason: Pain, Mild (1-3) Amoxicillin/Clavulanate Potassium (Augmentin 500 Mg-125 Mg Tab) 1 tab PO Q12 CACHORRO PRN Reason: Protocol Last Admin: 01/09/18 10:30 Dose: 1 tab Atorvastatin Calcium (Lipitor) 20 mg PO DIN CACHORRO PRN Reason: Protocol Doxycycline Hyclate (Doryx) 100 mg PO Q12 CACHORRO PRN Reason: Protocol Last Admin: 01/09/18 10:30 Dose: 100 mg Lisinopril (Zestril) 20 mg PO DAILY CACHORRO PRN Reason: Protocol Last Admin: 01/09/18 10:31 Dose: 20 mg Metoprolol Succinate (Toprol Xl) 50 mg PO BRK CACHORRO PRN Reason: Protocol Last Admin: 01/09/18 08:21 Dose: 50 mg Metoprolol Succinate (Toprol Xl) 50 mg PO HS CACHORRO PRN Reason: Protocol Last Admin: 01/08/18 22:00 Dose: Not Given Pantoprazole Sodium (Protonix Ec Tab) 40 mg PO 0630 CACHORRO PRN Reason: Protocol Last Admin: 01/09/18 05:38 Dose: 40 mg Potassium Chloride (K-Dur 20 Meq Er Tab) 20 meq PO BRK CACHORRO PRN Reason: Protocol Last Admin: 01/09/18 08:22 Dose: 20 meq Thiamine HCl (Vitamin B1 Tab) 100 mg PO DAILY CACHORRO PRN Reason: Protocol Last Admin: 01/09/18 10:31 Dose: 100 mg Tramadol/Acetaminophen (Ultracet 37.5/325 Mg) 1 tab PO Q6H PRN; Protocol PRN Reason: Pain, moderate (4-7) Warfarin Sodium (Coumadin) 10 mg PO 1800 CACHORRO PRN Reason: Protocol - Labs Labs: 01/09/18 08:40 01/09/18 08:40 PT 44.5 SECONDS (9.4-12.5) H 01/09/18 08:40 INR 3.77 H* 01/09/18 08:40 Attending/Attestation - Attestation I have personally seen and examined this patient.: Yes I have fully participated in the care of the patient.: Yes I have reviewed all pertinent clinical information, including history, physical exam and plan: Yes
[2018-01-09] MEDS: TraMADol/Apap 37.5/325 mg Tab PO PRN (15:48)
--- NOTE | 2018-01-09 22:05 | HP ---
Copied To: Aquilino Garcia MD Attending MD: Aquilino Garcia MD HISTORY OF PRESENT ILLNESS: The patient is 82 years old, who came to emergency room because of increasing right leg swelling, redness, pain. He has blister on the terrazas of his right leg. The patient is very noncompliant, has not been taking his Coumadin or any other medications. He was seen in the office almost a month ago for Coumadin check. According to daughter, he has gone back to drinking and smoking heavy. He was treated on acute care floor, had leg Dopplers done, unremarkable for PVD, however, he has intermittent claudication. His MRI did not show osteomyelitis, so he was transferred to TCU for wound care and continuation of his antibiotic. PAST MEDICAL HISTORY: Significant for: 1. Hypertension. 2. Hyperlipidemia. 3. Right leg DVT. 4. History of coagulation disorder in the family. 5. History of chronic kidney disease. 6. Chronic obstructive pulmonary disease. ALLERGIES: HE IS NOT ALLERGIC TO ANY MEDICATION. MEDICATIONS AT HOME: He is suppose to be on Coumadin. He is on tramadol as needed. He is on thiamine 100 mg daily, Protonix 40 daily, metoprolol 50 mg twice a day, lisinopril 20 mg daily, simvastatin, Vytorin 10/10 daily. SOCIAL HISTORY: He is heavy alcoholic and smoker. REVIEW OF SYSTEMS: Significant for right leg swelling that has significantly improved and pain in the right leg. PHYSICAL EXAMINATION: GENERAL: He is awake, alert, oriented, communicative. VITAL SIGNS: He is afebrile, pulse 70, respirations 20, and blood pressure 184/89. LUNGS: Bilateral good airflow. No rhonchi or crackle. HEART: S1 and S2 audible. ABDOMEN: Soft, nontender. No rebound. No guarding. NEUROLOGIC: The patient is awake, alert, oriented, communicative. EXTREMITIES: Right leg is in the dressing. Status post right leg cellulitis with open wound, blisters have bursted and underlying granulating tissue is exposed. LABORATORY DATA: WBC is 10, hemoglobin 12, hematocrit 36, platelet of 163, PT 44.5, INR 3.77. Chemistries, sodium 137, potassium 4.7, chloride 103, CO2 of 22, BUN 19, creatinine 1.4, blood sugar of 100, alk phos is 151. ASSESSMENT AND PLAN: 1. Right leg cellulitis. 2. History of right leg deep venous thrombosis. 3. Postphlebitic syndrome. 4. Hypertension. 5. Hyperlipidemia. PLAN: The patient is currently on Augmentin. We will hold Coumadin today and tomorrow. Continue on doxycycline. He is on Norvasc. He is on Protonix and metoprolol, pain killer as needed. He is on lisinopril. We will follow up his CBC, CMP and we will repeat the INR on Thursday. Aquilino Garcia MD
[2018-01-10] MEDS: TraMADol/Apap 37.5/325 mg Tab PO PRN ×2 (04:37→21:25)
[2018-01-10] MEDS: Metoprolol Succinate 50 mg XL Tab PO SCH ×3 (05:45→21:26)
[2018-01-10] MEDS: Pantoprazole 40 mg EC Tab PO SCH (05:45)
[2018-01-10] MEDS: Potassium Chloride 20 mEq ER Tab PO SCH (08:14)
[2018-01-10] MEDS: Amoxicillin-Clav 500-125 mg Tab PO SCH ×2 (09:33→21:21)
--- NOTE | 2018-01-10 09:42 | CP.PCM.PN ---
<Joanna Mosleyrossana - Last Filed: 01/10/18 09:40> Subjective - Date & Time of Evaluation Date of Evaluation: 01/10/18 Time of Evaluation: 09:40 - Subjective Subjective: Podiatry Progress Note for Dr. Pham 82 y/o male seen at bedside for weeping right leg superficial ulceration. Patient is AAO x 3 and NAD, resting comfortably in bed. Denies any acute overnight events. States that pain continues to improve. Denies any further pedal complaints at this time. Denies any recent N/V/F/C/CP/SOB/D/posterior calf pain Objective - Vital Signs/Intake and Output Vital Signs (last 24 hours): Temp Pulse Resp BP Pulse Ox 98.7 F 96 H 20 164/78 H 99 01/09/18 16:00 01/10/18 05:45 01/09/18 16:00 01/10/18 09:34 01/09/18 16:00 - Medications Medications: Current Medications Acetaminophen (Tylenol 325mg Tab) 650 mg PO Q4H PRN; Protocol PRN Reason: Pain, Mild (1-3) Amoxicillin/Clavulanate Potassium (Augmentin 500 Mg-125 Mg Tab) 1 tab PO Q12 CACHORRO PRN Reason: Protocol Last Admin: 01/10/18 09:33 Dose: 1 tab Atorvastatin Calcium (Lipitor) 20 mg PO DIN CACHORRO PRN Reason: Protocol Last Admin: 01/09/18 17:52 Dose: 20 mg Doxycycline Hyclate (Doryx) 100 mg PO Q12 CACHORRO PRN Reason: Protocol Last Admin: 01/10/18 09:34 Dose: 100 mg Lisinopril (Zestril) 20 mg PO DAILY CACHORRO PRN Reason: Protocol Last Admin: 01/10/18 09:34 Dose: 20 mg Metoprolol Succinate (Toprol Xl) 50 mg PO BRK CACHORRO PRN Reason: Protocol Last Admin: 01/10/18 08:14 Dose: Not Given Metoprolol Succinate (Toprol Xl) 50 mg PO HS CACHORRO PRN Reason: Protocol Last Admin: 01/09/18 21:19 Dose: 50 mg Pantoprazole Sodium (Protonix Ec Tab) 40 mg PO 0630 CACHORRO PRN Reason: Protocol Last Admin: 01/10/18 05:45 Dose: 40 mg Potassium Chloride (K-Dur 20 Meq Er Tab) 20 meq PO BRK CACHORRO PRN Reason: Protocol Last Admin: 01/10/18 08:14 Dose: 20 meq Thiamine HCl (Vitamin B1 Tab) 100 mg PO DAILY CACHORRO PRN Reason: Protocol Last Admin: 01/10/18 09:34 Dose: 100 mg Tramadol/Acetaminophen (Ultracet 37.5/325 Mg) 1 tab PO Q6H PRN; Protocol PRN Reason: Pain, moderate (4-7) Last Admin: 01/10/18 04:37 Dose: 1 tab Warfarin Sodium (Coumadin) 10 mg PO 1800 CACHORRO PRN Reason: Protocol - Labs Labs: 01/09/18 08:40 01/09/18 08:40 PT 44.5 SECONDS (9.4-12.5) H 01/09/18 08:40 INR 3.77 H* 01/09/18 08:40 - Constitutional Appears: Well, Non-toxic, No Acute Distress - Head Exam Head Exam: ATRAUMATIC, NORMOCEPHALIC - Extremities Exam Additional comments: LE focused exam: Vasc: DP/PT pulses fully palpable 2/4 b/l. Skin temperature warm to warm from proximal to distal. CFT < 3 seconds to all digits b/l. Moderate, unilateral edema noted to right leg, improved since yesterday Neuro: Epicritic and protective sensation grossly intact b/l Derm: Lanced bullae noted to right lateral leg spanning from level of midcalf down to lateral malleolus with some underlying superficial skin appreciated. Minimal serous drainage noted to bandages, improved since yesterday. No other open lesions, wounds, maceration, xerosis, abnormal pigmentation or abnormal growths noted MSK: POP to lanced blister site. ROM WNL at all major joints. MMT 5/5 in all major muscle groups. No other gross deformities noted - Neurological Exam Neurological Exam: Alert, Awake, Oriented x3 - Psychiatric Exam Psychiatric exam: Normal Affect, Normal Mood Assessment and Plan - Assessment and Plan (Free Text) Assessment: 82 y/o male seen at bedside for weeping right leg superficial skin ulceration Plan: Patient seen and evaluated Plan discussed with Dr. 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 MRI: No evidence of OM Right lower extremity dressed with xeroform and DSD No plan for surgical intervention at this time Podiatry will continue to follow while patient in house <Van Pham - Last Filed: 01/11/18 08:04> Objective - Vital Signs/Intake and Output Vital Signs (last 24 hours): Temp Pulse Resp BP Pulse Ox 98.2 F 67 20 162/86 H 97 01/10/18 16:00 01/11/18 05:54 01/10/18 16:00 01/11/18 05:54 01/10/18 16:00 - Medications Medications: Current Medications Acetaminophen (Tylenol 325mg Tab) 650 mg PO Q4H PRN; Protocol PRN Reason: Pain, Mild (1-3) Amoxicillin/Clavulanate Potassium (Augmentin 500 Mg-125 Mg Tab) 1 tab PO Q12 CACHORRO PRN Reason: Protocol Last Admin: 01/10/18 21:21 Dose: 1 tab Atorvastatin Calcium (Lipitor) 20 mg PO DIN CACHORRO PRN Reason: Protocol Last Admin: 01/10/18 18:06 Dose: 20 mg Doxycycline Hyclate (Doryx) 100 mg PO Q12 CACHORRO PRN Reason: Protocol Last Admin: 01/10/18 21:21 Dose: 100 mg Hydralazine HCl (Apresoline) 10 mg PO TID PRN PRN Reason: Systolic Blood Pressure Last Admin: 01/11/18 05:54 Dose: 10 mg Lisinopril (Zestril) 20 mg PO DAILY CACHORRO PRN Reason: Protocol Last Admin: 01/10/18 09:34 Dose: 20 mg Metoprolol Succinate (Toprol Xl) 50 mg PO BRK CACHORRO PRN Reason: Protocol Last Admin: 01/10/18 08:14 Dose: Not Given Metoprolol Succinate (Toprol Xl) 50 mg PO HS CACHORRO PRN Reason: Protocol Last Admin: 01/10/18 21:26 Dose: 50 mg Metronidazole (Flagyl) 500 mg PO TID CACHORRO PRN Reason: Protocol Last Admin: 01/10/18 18:06 Dose: 500 mg Pantoprazole Sodium (Protonix Ec Tab) 40 mg PO 0630 CACHORRO PRN Reason: Protocol Last Admin: 01/11/18 05:38 Dose: 40 mg Potassium Chloride (K-Dur 20 Meq Er Tab) 20 meq PO BRK CACHORRO PRN Reason: Protocol Last Admin: 01/10/18 08:14 Dose: 20 meq Thiamine HCl (Vitamin B1 Tab) 100 mg PO DAILY CACHORRO PRN Reason: Protocol Last Admin: 01/10/18 09:34 Dose: 100 mg Tramadol/Acetaminophen (Ultracet 37.5/325 Mg) 1 tab PO Q6H PRN; Protocol PRN Reason: Pain, moderate (4-7) Last Admin: 01/10/18 21:25 Dose: 1 tab Warfarin Sodium (Coumadin) 10 mg PO 1800 CACHORRO PRN Reason: Protocol - Labs Labs: 01/09/18 08:40 01/09/18 08:40 PT 44.5 SECONDS (9.4-12.5) H 01/09/18 08:40 INR 3.77 H* 01/09/18 08:40 Attending/Attestation - Attestation I have personally seen and examined this patient.: Yes I have fully participated in the care of the patient.: Yes I have reviewed all pertinent clinical information, including history, physical exam and plan: Yes
--- NOTE | 2018-01-10 22:45 | PN ---
Copied To: Maria Esther Art MD Attending MD: Maria Esther Art MD DATE: 01/10/2018 SUBJECTIVE: He is comfortable in bed, in no acute distress. Complaining of pain in right leg. No nausea. No vomiting. No chest pain. No events overnight. REVIEW OF SYSTEMS: As per HPI. Rest of 12-point review of systems reviewed negative. PHYSICAL EXAMINATION: GENERAL: Comfortable in bed, in no acute distress. VITAL SIGNS: Temperature 98.7, heart rate 80 per minute, respiratory rate 18 per minute, blood pressure 180/90. HEENT: No pallor. NECK: No lymphadenopathy. CHEST: Air entry present and equal, bilateral. No added sound. CARDIOVASCULAR: S1 and S2 normal. No murmur. No gallop. ABDOMEN: Soft, nontender. No hepatosplenomegaly. EXTREMITY: No edema. Right leg in dressing. Status post right leg cellulitis open wound. LABORATORY DATA: Labs reviewed. MEDICATIONS: Reviewed. ASSESSMENT AND PLAN: Right leg cellulitis, history of deep vein thrombosis, right leg postphlebitic syndrome, hypertension, hyperlipidemia. Currently, on Coumadin, doxycycline, Augmentin. Pain control with the current regimen, Protonix 40 mg daily. PT/INR in the morning. Maria Esther Art MD
[2018-01-11] MEDS: Pantoprazole 40 mg EC Tab PO SCH (05:38)
[2018-01-11] MEDS: Potassium Chloride 20 mEq ER Tab PO SCH (08:09)
[2018-01-11] MEDS: Metoprolol Succinate 50 mg XL Tab PO SCH ×2 (08:10→21:15)
[2018-01-11] MEDS: TraMADol/Apap 37.5/325 mg Tab PO PRN (09:59)
[2018-01-11] MEDS: Amoxicillin-Clav 500-125 mg Tab PO SCH ×2 (10:00→21:15)
[2018-01-11 11:56] LABS: BASO # 0.03 K/mm3 (0.0-2.0); BASO % 0.3 % (0.0-3.0); EOS # 0.2 (0.0-0.7); EOS % 1.4 % (1.5-5.0); GRAN # 8.26 (1.4-6.5); GRAN % 78.4 % (50.0-68.0); HEMOGLOBIN 12.1 g/dL (14.0-18.0); LYMPH # 1.3 (1.2-3.4); LYMPH % 12.5 % (22.0-35.0); MEAN CELL VOLUME 89.3 fl (80.0-105.0); MEAN CORPUSCULAR HEMOGLOBIN 30.7 pg (25.0-35.0); MEAN CORPUSCULAR HGB CONC 34.4 g/dl (31.0-37.0); MEAN PLATELET VOLUME 9.6 fl (7.0-11.0); MONO # 0.8 (0.1-0.6); MONO % 7.4 % (1.0-6.0); RBC 3.94 10^6/uL (3.5-6.1); WHITE BLOOD COUNT 10.5 10^3/ul (4.5-11.0)
[2018-01-11 12:07] LABS: ALB/GLOB RATIO 0.7 (1.1-1.8); ALBUMIN 3.4 g/dL (3.0-4.8); CALCIUM 8.8 mg/dL (8.4-10.5)
[2018-01-11 12:42] LABS: INR 3.56
--- NOTE | 2018-01-11 13:12 | CP.PCM.PN ---
<Devi Lackey - Last Filed: 01/11/18 13:10> Subjective - Date & Time of Evaluation Date of Evaluation: 01/11/18 Time of Evaluation: 13:10 - Subjective Subjective: Podiatry Progress Note for Dr. Pham 82 y/o male seen at bedside for weeping right leg superficial ulceration. Patient is AAOx3 and NAD, resting comfortably in bed. Denies any acute overnight events. States that pain continues to improve. Denies any further pedal complaints at this time. Denies any recent N/V/F/C/CP/SOB/D/posterior calf pain Objective - Vital Signs/Intake and Output Vital Signs (last 24 hours): Temp Pulse Resp BP Pulse Ox 98.2 F 67 20 144/65 97 01/10/18 16:00 01/11/18 05:54 01/10/18 16:00 01/11/18 10:01 01/10/18 16:00 Intake and Output: 01/11/18 01/11/18 06:59 18:59 Intake Total 420 Balance 420 - Medications Medications: Current Medications Acetaminophen (Tylenol 325mg Tab) 650 mg PO Q4H PRN; Protocol PRN Reason: Pain, Mild (1-3) Amoxicillin/Clavulanate Potassium (Augmentin 500 Mg-125 Mg Tab) 1 tab PO Q12 CACHORRO PRN Reason: Protocol Last Admin: 01/11/18 10:00 Dose: 1 tab Atorvastatin Calcium (Lipitor) 20 mg PO DIN CACHORRO PRN Reason: Protocol Last Admin: 01/10/18 18:06 Dose: 20 mg Doxycycline Hyclate (Doryx) 100 mg PO Q12 CACHORRO PRN Reason: Protocol Last Admin: 01/11/18 10:00 Dose: 100 mg Hydralazine HCl (Apresoline) 10 mg PO TID PRN PRN Reason: Systolic Blood Pressure Last Admin: 01/11/18 05:54 Dose: 10 mg Lisinopril (Zestril) 20 mg PO DAILY CACHORRO PRN Reason: Protocol Last Admin: 01/11/18 10:01 Dose: 20 mg Metoprolol Succinate (Toprol Xl) 50 mg PO BRK CACHORRO PRN Reason: Protocol Last Admin: 01/11/18 08:10 Dose: 50 mg Metoprolol Succinate (Toprol Xl) 50 mg PO HS CACHORRO PRN Reason: Protocol Last Admin: 01/10/18 21:26 Dose: 50 mg Metronidazole (Flagyl) 500 mg PO TID CACHORRO PRN Reason: Protocol Last Admin: 01/11/18 10:00 Dose: 500 mg Pantoprazole Sodium (Protonix Ec Tab) 40 mg PO 0630 CACHORRO PRN Reason: Protocol Last Admin: 01/11/18 05:38 Dose: 40 mg Thiamine HCl (Vitamin B1 Tab) 100 mg PO DAILY CACHORRO PRN Reason: Protocol Last Admin: 01/11/18 10:01 Dose: 100 mg Tramadol/Acetaminophen (Ultracet 37.5/325 Mg) 1 tab PO Q6H PRN; Protocol PRN Reason: Pain, moderate (4-7) Last Admin: 01/11/18 09:59 Dose: 1 tab - Labs Labs: 01/11/18 11:40 01/11/18 11:40 PT 42.0 SECONDS (9.4-12.5) H 01/11/18 11:40 INR 3.56 H* 01/11/18 11:40 - Constitutional Appears: Well, Non-toxic, No Acute Distress - Extremities Exam Additional comments: LE focused exam: Vasc: DP/PT pulses fully palpable 2/4 b/l. Skin temperature warm to warm from proximal to distal. CFT < 3 seconds to all digits b/l. Moderate, unilateral edema noted to right leg, improved since yesterday Neuro: Epicritic and protective sensation grossly intact b/l Derm: Lanced bullae noted to right lateral leg spanning from level of midcalf down to lateral malleolus with some underlying superficial skin appreciated. Minimal serous drainage noted to bandages, improved since yesterday. No other open lesions, wounds, maceration, xerosis, abnormal pigmentation or abnormal growths noted MSK: POP to lanced blister site. ROM WNL at all major joints. MMT 5/5 in all major muscle groups. No other gross deformities noted - Neurological Exam Neurological Exam: Alert, Awake, Oriented x3 - Psychiatric Exam Psychiatric exam: Normal Affect, Normal Mood Assessment and Plan - Assessment and Plan (Free Text) Assessment: 82 y/o male seen at bedside for weeping right leg superficial skin ulceration Plan: Patient seen and evaluated with Dr. 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 MRI: No evidence of OM Right lower extremity dressed with xeroform and DSD No plan for surgical intervention at this time Podiatry will continue to follow while patient in house <Van Pham - Last Filed: 01/11/18 14:54> Objective - Vital Signs/Intake and Output Vital Signs (last 24 hours): Temp Pulse Resp BP Pulse Ox 98.2 F 67 20 144/65 97 01/10/18 16:00 01/11/18 05:54 01/10/18 16:00 01/11/18 10:01 01/10/18 16:00 Intake and Output: 01/11/18 01/11/18 06:59 18:59 Intake Total 420 Balance 420 - Medications Medications: Current Medications Acetaminophen (Tylenol 325mg Tab) 650 mg PO Q4H PRN; Protocol PRN Reason: Pain, Mild (1-3) Amoxicillin/Clavulanate Potassium (Augmentin 500 Mg-125 Mg Tab) 1 tab PO Q12 CACHORRO PRN Reason: Protocol Last Admin: 01/11/18 10:00 Dose: 1 tab Atorvastatin Calcium (Lipitor) 20 mg PO DIN CACHORRO PRN Reason: Protocol Last Admin: 01/10/18 18:06 Dose: 20 mg Doxycycline Hyclate (Doryx) 100 mg PO Q12 CACHORRO PRN Reason: Protocol Last Admin: 01/11/18 10:00 Dose: 100 mg Hydralazine HCl (Apresoline) 10 mg PO TID PRN PRN Reason: Systolic Blood Pressure Last Admin: 01/11/18 05:54 Dose: 10 mg Lisinopril (Zestril) 20 mg PO DAILY CACHORRO PRN Reason: Protocol Last Admin: 01/11/18 10:01 Dose: 20 mg Metoprolol Succinate (Toprol Xl) 50 mg PO BRK CACHORRO PRN Reason: Protocol Last Admin: 01/11/18 08:10 Dose: 50 mg Metoprolol Succinate (Toprol Xl) 50 mg PO HS CACHORRO PRN Reason: Protocol Last Admin: 01/10/18 21:26 Dose: 50 mg Metronidazole (Flagyl) 500 mg PO TID CACHORRO PRN Reason: Protocol Last Admin: 01/11/18 10:00 Dose: 500 mg Pantoprazole Sodium (Protonix Ec Tab) 40 mg PO 0630 CACHORRO PRN Reason: Protocol Last Admin: 01/11/18 05:38 Dose: 40 mg Thiamine HCl (Vitamin B1 Tab) 100 mg PO DAILY CACHORRO PRN Reason: Protocol Last Admin: 01/11/18 10:01 Dose: 100 mg Tramadol/Acetaminophen (Ultracet 37.5/325 Mg) 1 tab PO Q6H PRN; Protocol PRN Reason: Pain, moderate (4-7) Last Admin: 01/11/18 09:59 Dose: 1 tab - Labs Labs: 01/11/18 11:40 01/11/18 11:40 PT 42.0 SECONDS (9.4-12.5) H 01/11/18 11:40 INR 3.56 H* 01/11/18 11:40 Attending/Attestation - Attestation I have personally seen and examined this patient.: Yes I have fully participated in the care of the patient.: Yes I have reviewed all pertinent clinical information, including history, physical exam and plan: Yes
--- NOTE | 2018-01-11 15:11 | PN ---
Copied To: Aquilino Garcia MD Attending MD: Aquilino Garcia MD DATE: 01/11/2018 SUBJECTIVE: The patient is 82-year-old, seen and examined, lying in bed, seems to be comfortable. Right leg wound seems to be drying up and healing. PHYSICAL EXAMINATION: VITAL SIGNS: He is afebrile, pulse 67, blood pressure 144/65. LUNGS: Bilateral fair airflow. No rhonchi or crackle. HEART: S1 and S2 audible. ABDOMEN: Soft, nontender. No rebound, no guarding. NEUROLOGIC: He is awake, alert, oriented, communicative. LABORATORY DATA: WBC 10.5, hemoglobin 12, hematocrit 35, platelet 172. PT is 3.7. Chemistry: Sodium 134, potassium 5.5, chloride 101, CO2 of 24, BUN 21, creatinine 1.4, blood sugar of 86. ASSESSMENT: 1. Status post right big toe amputation. 2. Insulin-dependent diabetes. 3. Hyperkalemia. 4. Coagulopathy. PLAN: Continue the patient on current medication. He is on potassium supplementation. I will discontinue that. I will follow up this patient in a.m. Aquilino Garcia MD
--- NOTE | 2018-01-11 21:54 | CON ---
Copied To: Silver Dempsey MD Attending MD: Silver Dempsey MD DATE: 01/11/2018 TIME: 07:35 p.m. 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 The blister was lanced. The resulting wound is now looking ischemic. The patient continues to smoke and drinks heavily. He is noncompliant with medicines and follow up with Dr. Garcia. He describes a mild amount of pain. He has been followed by Dr. Pham and [facility] They are concerned that the ulcer is deteriorating. His right lower extremity pulse exam demonstrates palpable femoral and popliteal pulse. His pedal pulses are not easily obtained. His POLLO/PVR exam demonstrates right SFA and tibial disease. The distal waveforms are nearly flat. I spoke with Mr. Espitia considering the situation. If the wound continues to deteriorate or osteomyelitis develops, he may require an amputation. He would like to avoid this at all cost. He is coagulopathic. I will give him vitamin K and fresh frozen plasma. His creatinine is 1.4. Mr. Espitia understands the risks of the procedure and desires to avoid amputation. Silver Dempsey MD MTDD
[2018-01-12] MEDS: Pantoprazole 40 mg EC Tab PO SCH (05:46)
[2018-01-12] MEDS ORDERED: Phytonadione 10 mg/ml Inj (Adult) SC ONE (08:00)
[2018-01-12] MEDS: Metoprolol Succinate 50 mg XL Tab PO SCH ×2 (08:09→21:28)
[2018-01-12] MEDS: Amoxicillin-Clav 500-125 mg Tab PO SCH ×2 (10:32→21:24)
--- NOTE | 2018-01-12 14:39 | PN ---
Copied To: Aquilino Garcia MD Attending MD: Aquilino Garcia MD DATE: 01/12/2018 SUBJECTIVE: The patient is 82 years old, seen and examined, lying in bed, seems to be comfortable. No nausea, no vomiting, no diarrhea. Complaining of pain upon walking . PHYSICAL EXAMINATION: VITAL SIGNS: The patient is afebrile, pulse 72, respirations 16, blood pressure 175/83. LUNGS: Bilateral good airflow. No rhonchi or crackle. HEART: S1, S2 audible. ABDOMEN: Soft, nontender. No rebound, no guarding. NEUROLOGICAL: The patient is awake, alert, oriented, communicative. LABORATORY EXAM: His PT is 42, INR 3.56. Chemistry, there is no lab available today for that. ASSESSMENT: 1. Right terrazas cellulitis with the blister that seems to be a little necrotic. 2. History of deep venous thrombosis in the right leg. 3. Hypertension. 4. Hyperlipidemia. 5. History of cirrhosis of liver. PLAN: The patient is currently on IV antibiotics. He was evaluated by Dr. Silver Dempsey. His arterial Doppler shows right SFA and tibial disease. I will discuss with Dr. Silver Dempsey for further interventions that is being arranged and we will reevaluate the patient in the morning. Aquilino Garcia MD
--- NOTE | 2018-01-12 17:02 | CP.PCM.PN ---
<Devi Lackey - Last Filed: 01/12/18 17:00> Subjective - Date & Time of Evaluation Date of Evaluation: 01/12/18 Time of Evaluation: 17:00 - Subjective Subjective: Podiatry Progress Note for Dr. Pham 82 y/o male seen at bedside for weeping right leg superficial ulceration. Patient is AAOx3 and NAD, resting comfortably in bed. Denies any acute overnight events. States that pain continues to improve. Denies any further pedal complaints at this time. Denies any recent N/V/F/C/CP/SOB/D/posterior calf pain Objective - Vital Signs/Intake and Output Vital Signs (last 24 hours): Temp Pulse Resp BP Pulse Ox 97.6 F 72 16 175/83 H 94 L 01/11/18 16:00 01/12/18 08:09 01/11/18 16:00 01/12/18 10:33 01/11/18 16:00 Intake and Output: 01/12/18 01/12/18 06:59 18:59 Intake Total 420 Balance 420 - Medications Medications: Current Medications Acetaminophen (Tylenol 325mg Tab) 650 mg PO Q4H PRN; Protocol PRN Reason: Pain, Mild (1-3) Amoxicillin/Clavulanate Potassium (Augmentin 500 Mg-125 Mg Tab) 1 tab PO Q12 CACHORRO PRN Reason: Protocol Last Admin: 01/12/18 10:32 Dose: 1 tab Atorvastatin Calcium (Lipitor) 20 mg PO DIN CACHORRO PRN Reason: Protocol Last Admin: 01/11/18 18:05 Dose: 20 mg Hydralazine HCl (Apresoline) 10 mg PO TID PRN PRN Reason: Systolic Blood Pressure Last Admin: 01/11/18 05:54 Dose: 10 mg Sodium Chloride (Sodium Chloride 0.45%) 1,000 mls @ 80 mls/hr IV .[id number] CACHORRO Stop: 01/15/18 12:00 Lisinopril (Zestril) 20 mg PO DAILY CACHORRO PRN Reason: Protocol Last Admin: 01/12/18 10:33 Dose: 20 mg Metoprolol Succinate (Toprol Xl) 50 mg PO BRK CACHORRO PRN Reason: Protocol Last Admin: 01/12/18 08:09 Dose: 50 mg Metoprolol Succinate (Toprol Xl) 50 mg PO HS CACHORRO PRN Reason: Protocol Last Admin: 01/11/18 21:15 Dose: 50 mg Metronidazole (Flagyl) 500 mg PO TID CACHORRO PRN Reason: Protocol Last Admin: 01/12/18 14:04 Dose: 500 mg Pantoprazole Sodium (Protonix Ec Tab) 40 mg PO 0630 CACHORRO PRN Reason: Protocol Last Admin: 01/12/18 05:46 Dose: 40 mg Phytonadione (Vitamin K Inj) 10 mg SC ONCE ONE Stop: 01/13/18 08:01 Thiamine HCl (Vitamin B1 Tab) 100 mg PO DAILY CACHORRO PRN Reason: Protocol Last Admin: 01/12/18 10:33 Dose: 100 mg Tramadol/Acetaminophen (Ultracet 37.5/325 Mg) 1 tab PO Q6H PRN; Protocol PRN Reason: Pain, moderate (4-7) Last Admin: 01/11/18 09:59 Dose: 1 tab - Labs Labs: 01/11/18 11:40 01/11/18 11:40 PT 42.0 SECONDS (9.4-12.5) H 01/11/18 11:40 INR 3.56 H* 01/11/18 11:40 - Constitutional Appears: Well, Non-toxic, No Acute Distress - Extremities Exam Additional comments: LE focused exam: Vasc: DP/PT pulses fully palpable 2/4 b/l. Skin temperature warm to warm from proximal to distal. CFT < 3 seconds to all digits b/l. Moderate, unilateral edema noted to right leg, improved since yesterday Neuro: Epicritic and protective sensation grossly intact b/l Derm: Lanced bullae noted to right lateral leg spanning from level of midcalf down to lateral malleolus with some underlying superficial skin appreciated. Minimal serous drainage noted to bandages, improved since yesterday. No other open lesions, wounds, maceration, xerosis, abnormal pigmentation or abnormal growths noted MSK: POP to lanced blister site. ROM WNL at all major joints. MMT 5/5 in all major muscle groups. No other gross deformities noted - Neurological Exam Neurological Exam: Alert, Awake, Oriented x3 - Psychiatric Exam Psychiatric exam: Depressed, Normal Affect Assessment and Plan - Assessment and Plan (Free Text) Assessment: 82 y/o male seen at bedside for weeping right leg superficial skin ulceration Plan: Patient seen and evaluated with Dr. 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 MRI: No evidence of OM Right lower extremity dressed with xeroform and DSD No plan for surgical intervention at this time Patient will be going for arterial studies tomorrow as per Dr. Dempsey Podiatry will continue to follow while patient in house <Van Pham - Last Filed: 01/13/18 09:26> Objective - Vital Signs/Intake and Output Vital Signs (last 24 hours): Temp Pulse Resp BP Pulse Ox 98.6 F 65 18 164/79 H 99 01/12/18 16:00 01/13/18 05:34 01/12/18 16:00 01/13/18 08:16 01/12/18 16:00 - Medications Medications: Current Medications Acetaminophen (Tylenol 325mg Tab) 650 mg PO Q4H PRN; Protocol PRN Reason: Pain, Mild (1-3) Amoxicillin/Clavulanate Potassium (Augmentin 500 Mg-125 Mg Tab) 1 tab PO Q12 CACHORRO PRN Reason: Protocol Last Admin: 01/12/18 21:24 Dose: 1 tab Atorvastatin Calcium (Lipitor) 20 mg PO DIN CACHORRO PRN Reason: Protocol Last Admin: 01/12/18 17:54 Dose: 20 mg Hydralazine HCl (Apresoline) 10 mg PO TID PRN PRN Reason: Systolic Blood Pressure Last Admin: 01/13/18 05:34 Dose: 10 mg Sodium Chloride (Sodium Chloride 0.45%) 1,000 mls @ 80 mls/hr IV .[id number] CACHORRO Stop: 01/15/18 12:00 Lisinopril (Zestril) 20 mg PO DAILY CACHORRO PRN Reason: Protocol Last Admin: 01/12/18 10:33 Dose: 20 mg Metoprolol Succinate (Toprol Xl) 50 mg PO BRK CACHORRO PRN Reason: Protocol Last Admin: 01/13/18 08:16 Dose: 50 mg Metoprolol Succinate (Toprol Xl) 50 mg PO HS CACHORRO PRN Reason: Protocol Last Admin: 01/12/18 21:28 Dose: 50 mg Metronidazole (Flagyl) 500 mg PO TID CACHORRO PRN Reason: Protocol Last Admin: 01/12/18 17:53 Dose: 500 mg Pantoprazole Sodium (Protonix Ec Tab) 40 mg PO 0630 CACHORRO PRN Reason: Protocol Last Admin: 01/13/18 05:33 Dose: 40 mg Thiamine HCl (Vitamin B1 Tab) 100 mg PO DAILY CACHORRO PRN Reason: Protocol Last Admin: 01/12/18 10:33 Dose: 100 mg Tramadol/Acetaminophen (Ultracet 37.5/325 Mg) 1 tab PO Q6H PRN; Protocol PRN Reason: Pain, moderate (4-7) Last Admin: 01/11/18 09:59 Dose: 1 tab - Labs Labs: 01/11/18 11:40 01/11/18 11:40 PT 42.0 SECONDS (9.4-12.5) H 01/11/18 11:40 INR 3.56 H* 01/11/18 11:40 Attending/Attestation - Attestation I have personally seen and examined this patient.: Yes I have fully participated in the care of the patient.: Yes I have reviewed all pertinent clinical information, including history, physical exam and plan: Yes
[2018-01-12 17:10] VITALS: RESP 18
[2018-01-13] MEDS: Pantoprazole 40 mg EC Tab PO SCH (05:33)
[2018-01-13] MEDS ORDERED: Phytonadione 10 mg/ml Inj (Adult) SC ONE (08:00)
[2018-01-13] MEDS: Metoprolol Succinate 50 mg XL Tab PO SCH ×2 (08:16→21:23)
[2018-01-13] MEDS: Amoxicillin-Clav 500-125 mg Tab PO SCH ×2 (10:02→21:11)
[2018-01-13] MEDS: TraMADol/Apap 37.5/325 mg Tab PO PRN ×2 (10:08→21:11)
--- NOTE | 2018-01-13 11:31 | CP.PCM.PN ---
<Joanna Mosleyrossana - Last Filed: 01/13/18 11:26> Subjective - Date & Time of Evaluation Date of Evaluation: 01/13/18 Time of Evaluation: 11:26 - Subjective Subjective: Podiatry Progress Note for Dr. Pham 82 y/o male seen at bedside for weeping right leg superficial ulceration. Patient is AAOx3 and NAD, resting comfortably in bed. Denies any acute overnight events. States that pain continues to improve. Denies any further pedal complaints at this time. Denies any recent N/V/F/C/CP/SOB/D/posterior calf pain Objective - Vital Signs/Intake and Output Vital Signs (last 24 hours): Temp Pulse Resp BP Pulse Ox 97.9 F 65 18 153/77 H 98 01/13/18 10:00 01/13/18 10:00 01/13/18 10:00 01/13/18 10:03 01/13/18 10:00 - Medications Medications: Current Medications Acetaminophen (Tylenol 325mg Tab) 650 mg PO Q4H PRN; Protocol PRN Reason: Pain, Mild (1-3) Amoxicillin/Clavulanate Potassium (Augmentin 500 Mg-125 Mg Tab) 1 tab PO Q12 CACHORRO PRN Reason: Protocol Last Admin: 01/13/18 10:02 Dose: 1 tab Atorvastatin Calcium (Lipitor) 20 mg PO DIN CACHORRO PRN Reason: Protocol Last Admin: 01/12/18 17:54 Dose: 20 mg Hydralazine HCl (Apresoline) 10 mg PO TID PRN PRN Reason: Systolic Blood Pressure Last Admin: 01/13/18 05:34 Dose: 10 mg Sodium Chloride (Sodium Chloride 0.45%) 1,000 mls @ 80 mls/hr IV .[id number] CACHORRO Stop: 01/15/18 12:00 Lisinopril (Zestril) 20 mg PO DAILY CACHORRO PRN Reason: Protocol Last Admin: 01/13/18 10:03 Dose: 20 mg Metoprolol Succinate (Toprol Xl) 50 mg PO BRK CACHORRO PRN Reason: Protocol Last Admin: 01/13/18 08:16 Dose: 50 mg Metoprolol Succinate (Toprol Xl) 50 mg PO HS CACHORRO PRN Reason: Protocol Last Admin: 01/12/18 21:28 Dose: 50 mg Metronidazole (Flagyl) 500 mg PO TID CACHORRO PRN Reason: Protocol Last Admin: 01/13/18 09:49 Dose: Not Given Pantoprazole Sodium (Protonix Ec Tab) 40 mg PO 0630 CACHORRO PRN Reason: Protocol Last Admin: 01/13/18 05:33 Dose: 40 mg Thiamine HCl (Vitamin B1 Tab) 100 mg PO DAILY CACHORRO PRN Reason: Protocol Last Admin: 01/13/18 10:02 Dose: 100 mg Tramadol/Acetaminophen (Ultracet 37.5/325 Mg) 1 tab PO Q6H PRN; Protocol PRN Reason: Pain, moderate (4-7) Last Admin: 01/13/18 10:08 Dose: 1 tab - Labs Labs: 01/11/18 11:40 01/11/18 11:40 PT 42.0 SECONDS (9.4-12.5) H 01/11/18 11:40 INR 3.56 H* 01/11/18 11:40 - Constitutional Appears: Well, Non-toxic, No Acute Distress - Head Exam Head Exam: ATRAUMATIC, NORMOCEPHALIC - Extremities Exam Additional comments: LE focused exam: Vasc: DP/PT pulses fully palpable 2/4 b/l. Skin temperature warm to warm from proximal to distal. CFT < 3 seconds to all digits b/l. Moderate, unilateral edema noted to right leg, improved since yesterday Neuro: Epicritic and protective sensation grossly intact b/l Derm: Lanced bullae noted to right lateral leg spanning from level of midcalf down to lateral malleolus with some underlying superficial skin appreciated. No other open lesions, wounds, maceration, xerosis, abnormal pigmentation or abnormal growths noted MSK: POP to lanced blister site. ROM WNL at all major joints. MMT 5/5 in all major muscle groups. No other gross deformities noted - Neurological Exam Neurological Exam: Alert, Awake, Oriented x3 - Psychiatric Exam Psychiatric exam: Normal Affect, Normal Mood Assessment and Plan - Assessment and Plan (Free Text) Assessment: 82 y/o male seen at bedside for weeping right leg superficial skin ulceration Plan: Patient seen and evaluated Plan discussed with attending Dr. 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 MRI: No evidence of OM Right lower extremity dressed with xeroform and DSD No plan for surgical intervention at this time Patient will be going for arterial studies today as per Dr. Dempsey Podiatry will continue to follow while patient in house <Van Pham - Last Filed: 01/13/18 14:22> Objective - Vital Signs/Intake and Output Vital Signs (last 24 hours): Temp Pulse Resp BP Pulse Ox 97.9 F 65 18 153/77 H 98 01/13/18 10:00 01/13/18 10:00 01/13/18 10:00 01/13/18 10:03 01/13/18 10:00 - Medications Medications: Current Medications Acetaminophen (Tylenol 325mg Tab) 650 mg PO Q4H PRN; Protocol PRN Reason: Pain, Mild (1-3) Amoxicillin/Clavulanate Potassium (Augmentin 500 Mg-125 Mg Tab) 1 tab PO Q12 CACHORRO PRN Reason: Protocol Last Admin: 01/13/18 10:02 Dose: 1 tab Atorvastatin Calcium (Lipitor) 20 mg PO DIN CACHOROR PRN Reason: Protocol Last Admin: 01/12/18 17:54 Dose: 20 mg Hydralazine HCl (Apresoline) 10 mg PO TID PRN PRN Reason: Systolic Blood Pressure Last Admin: 01/13/18 05:34 Dose: 10 mg Sodium Chloride (Sodium Chloride 0.45%) 1,000 mls @ 80 mls/hr IV .[id number] CACHORRO Stop: 01/15/18 12:00 Last Admin: 01/13/18 13:05 Dose: 80 mls/hr Lisinopril (Zestril) 20 mg PO DAILY CACHORRO PRN Reason: Protocol Last Admin: 01/13/18 10:03 Dose: 20 mg Metoprolol Succinate (Toprol Xl) 50 mg PO BRK CACHORRO PRN Reason: Protocol Last Admin: 01/13/18 08:16 Dose: 50 mg Metoprolol Succinate (Toprol Xl) 50 mg PO HS CACHORRO PRN Reason: Protocol Last Admin: 01/12/18 21:28 Dose: 50 mg Pantoprazole Sodium (Protonix Ec Tab) 40 mg PO 0630 CACHORRO PRN Reason: Protocol Last Admin: 01/13/18 05:33 Dose: 40 mg Thiamine HCl (Vitamin B1 Tab) 100 mg PO DAILY CACHORRO PRN Reason: Protocol Last Admin: 01/13/18 10:02 Dose: 100 mg Tramadol/Acetaminophen (Ultracet 37.5/325 Mg) 1 tab PO Q6H PRN; Protocol PRN Reason: Pain, moderate (4-7) Last Admin: 01/13/18 10:08 Dose: 1 tab - Labs Labs: 01/11/18 11:40 01/11/18 11:40 PT 19.8 SECONDS (9.4-12.5) H 01/13/18 11:30 INR 1.70 01/13/18 11:30 Attending/Attestation - Attestation I have personally seen and examined this patient.: Yes I have fully participated in the care of the patient.: Yes I have reviewed all pertinent clinical information, including history, physical exam and plan: Yes
[2018-01-13 11:44] LABS: INR 1.7; PROTHROMBIN TIME 19.8 SECONDS (9.4-12.5)
[2018-01-13] MEDS: Sodium Chloride 0.45% 1,000 ML IV SCH (13:05)
[2018-01-13 16:45] VITALS: TEMP 98; O2SAT 99
--- NOTE | 2018-01-13 23:24 | DS ---
Copied To: Aquilino Garcia MD Attending MD: Aquilino Garcia MD HISTORY OF PRESENT ILLNESS: The patient is 82 years old, seen and examined, who came in initially with right leg swelling, blisters that was lanced and wound care is being done. He is currently on an antibiotic. The patient's wound healing is poor especially in the distal part close to his right dorsum of the foot, so arrangement is being made to do angiogram and possible angioplasty in the a.m. The patient has been on Coumadin, that will be reversed according to today's blood work report. PHYSICAL EXAMINATION: GENERAL: The patient is awake, alert, oriented, communicative. VITAL SIGNS: The patient is afebrile, pulse 65, respirations 18, blood pressure 153/77. LUNGS: Bilateral good airflow. No rhonchi or crackle. HEART: S1 and S2 audible. ABDOMEN: Soft. Nontender. No rebound. No guarding. NEUROLOGICAL: He is awake, alert, oriented, communicative, ambulates with assistance. SKIN: His right terrazas wound seems to be healing, but he has necrosis skin in dorsum of right foot. LABORATORY EXAM: His INR is 1.7. 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 The patient is scheduled to have angiography done tomorrow. We will hold his Coumadin. Continue analgesic. Currently, he is on Augmentin. Continue wound care. We will follow up the patient in the a.m. Aquilino Garcia MD
[2018-01-14] MEDS: Sodium Chloride 0.45% 1,000 ML IV SCH ×2 (00:30→05:37)
[2018-01-14] MEDS: Pantoprazole 40 mg EC Tab PO SCH (05:35)
[2018-01-14 05:44] VITALS: PULSE 63
[2018-01-14 07:00] LABS: BASO # 0.02 K/mm3 (0.0-2.0); BASO % 0.2 % (0.0-3.0); EOS # 0.1 (0.0-0.7); EOS % 1.1 % (1.5-5.0); GRAN # 7.52 (1.4-6.5); GRAN % 71.7 % (50.0-68.0); HEMOGLOBIN 12.3 g/dL (14.0-18.0); LYMPH # 1.9 (1.2-3.4); LYMPH % 18.2 % (22.0-35.0); MEAN CELL VOLUME 89.1 fl (80.0-105.0); MEAN CORPUSCULAR HEMOGLOBIN 30.5 pg (25.0-35.0); MEAN CORPUSCULAR HGB CONC 34.3 g/dl (31.0-37.0); MEAN PLATELET VOLUME 10.2 fl (7.0-11.0); MONO # 0.9 (0.1-0.6); MONO % 8.8 % (1.0-6.0); RBC 4.03 10^6/uL (3.5-6.1); RED CELL DISTRIBUTION WIDTH 15.1 % (11.5-14.5); WHITE BLOOD COUNT 10.5 10^3/ul (4.5-11.0)
[2018-01-14 07:26] LABS: ALB/GLOB RATIO 0.7 (1.1-1.8); ALBUMIN 3.4 g/dL (3.0-4.8); CALCIUM 8.6 mg/dL (8.4-10.5); INR 1.25; PARTIAL THROMBOPLASTIN TIME 32.3 Seconds (25.1-36.5); PROTHROMBIN TIME 14.4 SECONDS (9.4-12.5)
[2018-01-14] MEDS: Metoprolol Succinate 50 mg XL Tab PO SCH (08:37)
[2018-01-14 08:38] VITALS: BP 150/70
== END 2018-01-14 09:35 | disposition short-term general hospital (02) | DRG 300 ==
LOC: TRCU 19:09
PROVIDERS: ADMIT Internal Medicine; ATTEND Internal Medicine
PROC: F07Z9FZ Gait Training/Functional Ambulation Treatment using Assistive, Adaptive, Supportive or Protective Equipment (ICD-10-PCS; principal; 2018-01-09)
PROC: F07M6ZZ Therapeutic Exercise Treatment of Musculoskeletal System - Whole Body (ICD-10-PCS; 2018-01-09)
PROC: F08Z2ZZ Grooming/Personal Hygiene Treatment (ICD-10-PCS; 2018-01-09)
DX: I87.009 Postthrombotic syndrome without complications of unspecified extremity (principal); L03.115 Cellulitis of right lower limb; D68.9 Coagulation defect, unspecified; I12.9 Hypertensive chronic kidney disease with stage 1 through stage 4 chronic kidney disease, or unspecified chronic kidney disease; N18.9 Chronic kidney disease, unspecified; E78.5 Hyperlipidemia, unspecified; J44.9 Chronic obstructive pulmonary disease, unspecified; E11.22 Type 2 diabetes mellitus with diabetic chronic kidney disease; E11.51 Type 2 diabetes mellitus with diabetic peripheral angiopathy without gangrene; E87.5 Hyperkalemia; K74.60 Unspecified cirrhosis of liver; S80.821A Blister (nonthermal), right lower leg, initial encounter; Z79.4 Long term (current) use of insulin; Z79.899 Other long term (current) drug therapy; F17.200 Nicotine dependence, unspecified, uncomplicated; F10.20 Alcohol dependence, uncomplicated; Z86.718 Personal history of other venous thrombosis and embolism; Z89.411 Acquired absence of right great toe; Z91.14 Patient's other noncompliance with medication regimen; Z83.2 Family history of diseases of the blood and blood-forming organs and certain disorders involving the immune mechanism

== ENCOUNTER 2018-01-14 09:22 | Inpatient (IN) | payer MEDICARE ==
[2018-01-14 10:35] LABS: CALCIUM 8.7 mg/dL (8.4-10.5)
[2018-01-14 10:44] LABS: INR 1.26; PROTHROMBIN TIME 14.5 SECONDS (9.4-12.5)
[2018-01-14 10:46] LABS: RBC 4.15 10^6/uL (3.5-6.1); WHITE BLOOD COUNT 10.1 10^3/ul (4.5-11.0)
[2018-01-14 10:47] LABS: HEMOGLOBIN 12.6 g/dL (14.0-18.0); MEAN CELL VOLUME 89.9 fl (80.0-105.0); MEAN CORPUSCULAR HEMOGLOBIN 30.4 pg (25.0-35.0); MEAN CORPUSCULAR HGB CONC 33.8 g/dl (31.0-37.0)
[2018-01-14 10:48] LABS: MEAN PLATELET VOLUME 10.7 fl (7.0-11.0)
[2018-01-14 10:49] LABS: BASO % 0.4 % (0.0-3.0); GRAN # 1.55 (1.4-6.5); GRAN % 76.5 % (50.0-68.0); LYMPH # 1.6 (1.2-3.4); LYMPH % 15.4 % (22.0-35.0); MONO % 6.7 % (1.0-6.0)
[2018-01-14 10:50] LABS: BASO # 0.04 K/mm3 (0.0-2.0); EOS # 0.1 (0.0-0.7); MONO # 0.7 (0.1-0.6)
[2018-01-14] MEDS ORDERED: Lidocaine PF 2% (5 ml) Inj (For Cardiac Arrhy) ONE ×2 (12:16→12:53)
[2018-01-14] MEDS ORDERED: Iodixanol 320 MG/ML 200 ML BOTTLE IV ONE (12:17)
[2018-01-14] MEDS ORDERED: Iodixanol 320 MG/ML 100 ML BOTTLE IV ONE ×2 (12:17→14:24)
[2018-01-14] MEDS ORDERED: Nitroglycerin 50mg in D5W 50 MG/250 ML BOTTLE IV ONE (12:18)
[2018-01-14] MEDS ORDERED: Midazolam 2 MG/2 ML VIAL ONE ×2 (12:34→13:22)
[2018-01-14] MEDS ORDERED: Verapamil 2 ML ONE (13:41)
[2018-01-14] MEDS ORDERED: Oxycodone/Acetaminophen 5/325 mg Tab PO PRN (14:50)
[2018-01-14] MEDS ORDERED: Sodium Chloride 0.45% 1,000 ML IV SCH (15:00)
--- NOTE | 2018-01-14 17:52 | VASCULAR ---
PROCEDURE: 1. Abdominal aortogram and bilateral lower extremity runoff with right selective views 2. Long segment right SFA recanalization with balloon angioplasty and stent graft placement 3. Right popliteal artery drug-eluting balloon angioplasty 4. Right anterior tibial CS I atherectomy and angioplasty. HISTORY: Severe peripheral vascular disease. Smoker. Ischemic right pretibial ulceration that is nonhealing. PHYSICIAN(S): Silver Dempsey M.D. TECHNIQUE: The relative risks and indications of the procedure were explained to the patient and his daughter and consent obtained. The patient was hydrated prior to the procedure and the appropriate labs drawn. The patient was placed supine on the arteriogram table and the left groin prepped and draped in the usual sterile fashion. Conscious sedation and monitoring were provided throughout the procedure by a nurse. Via a left common femoral artery approach, a 5 [place] sheath was placed in the right groin. Through the sheath and over a guidewire, a 5 [place] flush catheter was placed in the abdominal aorta at the level of the renal arteries and a PA DSA abdominal aortogram performed. The catheter was pulled down to the aortic bifurcation and bilateral oblique DSA pelvic arteriograms performed. Overlapping bilateral lower extremity DSA arteriograms were obtained from the inguinal ligaments to the ankles. A 0.035 angled Glidewire was advanced over the bifurcation and placed in the right profunda femoral artery. A 7 [place] 45 cm destination sheath was placed in the right common femoral artery. Heparin 5000 units IV and nitroglycerin in 250 mcg aliquots were given. The long segment occlusion of the right SFA was crossed rather easily with a wildcat catheter. Distal imaging was obtained. The severe disease in the proximal right anterior tibial artery was crossed with a 0.035 glidewire and 5 [place] catheter. Exchange is made for a 0.017 Viper support wire. CS I atherectomy of the proximal right anterior tibial artery was performed with 1.25 micro jaswinder. The proximal right anterior tibial artery was then dilated with a 3.5 mm balloon. The right popliteal artery was dilated with a 5 mm drug-eluting balloon. The right SFA was dilated initially with a 5.5 mm balloon. Two overlapping 6 mm x 150 Viabahn stent grafts were placed in the right SFA. The origin of the right SFA was dilated with a 7 mm balloon. Completion angiograms were obtained. An excellent angiographic result was noted. The sheath was removed hemostasis obtained with a Perclose device. FINDINGS: There are single renal arteries bilaterally which are widely patent and normal in appearance. The nephrograms are symmetric in appearance. The infrarenal abdominal aorta is calcified and irregular without a significant stenosis. The aortic bifurcation is patent. The common and external iliac arteries are calcified but widely patent without radiographically significant stenosis.. Right lower extremity: The right common femoral artery is patent with moderate calcified posterior plaque. The right profunda femoral artery is hypertrophied. The right superficial femoral artery is occluded 2 cm from its origin. There is reconstitution of the right SFA distally in the adductor canal. Moderate disease is seen in the right popliteal artery. There is severe right trifurcation and tibial occlusive disease. Critical disease of the right anterior tibial artery is noted in the 1st 6 cm. The right tibioperoneal trunk is occluded. There is reconstitution of the proximal right peroneal artery. The right anterior tibial artery is a predominant supply to the foot. The right peroneal artery is continuous to the ankle.. Left lower extremity: Left common femoral artery is patent with mild to moderate posterior plaque. The left profunda femoral artery is hypertrophied. The left superficial femoral artery is diffusely calcified and with multiple moderate stenoses in the adductor canal.. Critical calcified stenoses are seen in the left popliteal artery above the knee. There is 1 vessel runoff on the left via the peroneal artery. The left anterior tibial and posterior tibial arteries are occluded IMPRESSION: 1.Successful long segment recanalization of the right SFA 2. Sessile proximal right anterior tibial artery CS I atherectomy and angioplasty 3. Successful drug-eluting balloon angioplasty right popliteal artery. 4. 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 5. Critical stenoses in the left popliteal artery above the knee.
[2018-01-14] MEDS: Metoprolol Succinate 50 mg XL Tab PO SCH (17:55)
[2018-01-14] MEDS: TraMADol/Apap 37.5/325 mg Tab PO PRN (21:01)
--- NOTE | 2018-01-15 03:05 | HP ---
Copied To: Aquilino Garcia MD Attending MD: Aquilino Garcia MD HISTORY OF PRESENT ILLNESS: The patient is an 82-year-old who initially came in with the right terrazas ulcer with big blister that was lanced, but his wound was not healing that well. He has necrotic tissue on his dorsum of the foot, so he had arterial Doppler done that showed he has aggressive, occlusive disease. So, he was discharged today and was taken by Dr. Silver Dempsey for angiogram and followed by angioplasty. The patient is being admitted on acute care floor. No history of any fever. No nausea or vomiting. No diarrhea. PAST MEDICAL HISTORY: Significant for: 1. Hypertension. 2. Hyperlipidemia. 3. Mild kidney disease. 4. Peripheral vascular disease. ALLERGIES: NOT ALLERGIC TO ANY MEDICATIONS. MEDICATIONS AT HOME: He is on tramadol as needed, he is on Coumadin, thiamine 100 mg daily. He is on Protonix 40 daily, metoprolol 50 mg twice a day, lisinopril 20 mg daily, Vytorin 10/10 daily. SOCIAL HISTORY: He is a heavy smoker and drinker. He has been drinking for more than 50 years, has been smoking almost one to two packs daily for 50 years. REVIEW OF SYSTEMS: Significant for right leg pain and swelling, status post angioplasty. PHYSICAL EXAMINATION: GENERAL: He is awake, alert, oriented, communicative. VITAL SIGNS: He is afebrile, pulse 73, respiration 20, blood pressure 121/64. LUNGS: Bilateral fair airflow. No rhonchi or crackle. HEART: S1 and S2 audible. ABDOMEN: Soft, nontender. No rebound, no guarding. NEUROLOGICAL: He is awake, alert, oriented, communicative. LABORATORY EXAMINATION: WBC is 7.1, hemoglobin 12.6, hematocrit 37.3, platelet 214. PT 14.5, INR 1.26. Chemistry: Sodium 133, potassium 4.7, chloride 100, CO2 of 23, BUN 26, creatinine 1.1, blood sugar of 161. ASSESSMENT: 1. Severe peripheral vascular disease, status post atherectomy followed by angioplasty and superior femoral artery, anterior tibial and popliteal. 2. Hypertension. 3. Hyperlipidemia. 4. Chronic kidney disease. 5. Anemia. 6. History of right leg deep venous thrombosis. PLAN: The patient will be admitted on acute care floor. We will start him on Coumadin from today. We will continue him on atorvastatin. Continue on Protonix and beta-ramiro. Discussed with the patient's daughter. I spoke to Dr. Silver Dempsey. We will follow the CBC and CMP in a.m. Aquilino Garcia MD
[2018-01-15] MEDS: Pantoprazole 40 mg EC Tab PO SCH (06:28)
[2018-01-15] MEDS: TraMADol/Apap 37.5/325 mg Tab PO PRN (07:16)
[2018-01-15] MEDS: Metoprolol Succinate 50 mg XL Tab PO SCH (08:50)
[2018-01-15 09:11] LABS: HEMOGLOBIN 11.5 g/dL (14.0-18.0); MEAN CELL VOLUME 88.4 fl (80.0-105.0); MEAN CORPUSCULAR HEMOGLOBIN 30.3 pg (25.0-35.0); MEAN CORPUSCULAR HGB CONC 34.2 g/dl (31.0-37.0); MEAN PLATELET VOLUME 9.8 fl (7.0-11.0); RBC 3.8 10^6/uL (3.5-6.1); RED CELL DISTRIBUTION WIDTH 15.1 % (11.5-14.5); WHITE BLOOD COUNT 14.1 10^3/ul (4.5-11.0)
[2018-01-15 09:31] LABS: ALB/GLOB RATIO 0.7 (1.1-1.8); ALBUMIN 3.2 g/dL (3.0-4.8)
[2018-01-15 10:00] LABS: INR 1.28; PROTHROMBIN TIME 14.8 SECONDS (9.4-12.5)
[2018-01-15] MEDS ORDERED: Enoxaparin 60 mg Syringe SC SCH (11:15)
--- NOTE | 2018-01-15 13:31 | PN ---
Copied To: Aquilino Garcia MD Attending MD: Aquilino Garcia MD DATE: 01/15/2018 SUBJECTIVE: The patient is 82 years old, seen and examined, doing well, sitting in chair. He states his right leg feels much better, more warm and feel light since he had angioplasty done. PHYSICAL EXAMINATION: VITAL SIGNS: He is afebrile, pulse 70, respirations 18, blood pressure 141/66. LUNGS: Bilateral good airflow. No rhonchi or crackle. HEART: S1 and S2 audible. ABDOMEN: Soft, nontender. No rebound, no guarding. NEUROLOGICAL: The patient is awake, alert, oriented, communicative. Able to ambulate with the walker. EXTREMITIES: His right leg is in the dressing. He has blackish eschar on his dorsum of the foot, however, terrazas area seem to be granulating. LABORATORY EXAMINATION: WBC is 14.1, hemoglobin 11.5, hematocrit 33.6, platelets 178. PT 14.8, INR 1.28. Chemistry: Sodium 129, potassium 4.4, chloride 97, CO2 20, BUN 20, creatinine 1.4, blood sugar of 148. ASSESSMENT: 1. Right terrazas cellulitis and had blister that was lanced now, the wound seems to be granulating. 2. Severe right peripheral vascular disease, status post superficial femoral artery, right anterior tibial atherectomy and angioplasty and also right popliteal artery angioplasty. 3. Right leg deep venous thrombosis. 4. Right leg occlusive disease, status post angioplasty and atherectomy. 5. Hypertension. 6 History of alcohol abuse. 7. History of active smoking. 8. Leukocytosis. PLAN: We will hold Coumadin, start him on Lovenox, analgesic as needed. We will discontinue telemetry. Plan is to have skin grafting done on Thursday. Aquilino Garcia MD
--- NOTE | 2018-01-15 13:48 | CP.PCM.PN ---
<Devi Lackey - Last Filed: 01/15/18 13:46> Subjective - Date & Time of Evaluation Date of Evaluation: 01/15/18 Time of Evaluation: 13:46 - Subjective Subjective: Podiatry Progress Note for Dr. Pham 82 y/o male seen at bedside for weeping right leg superficial ulceration. Patient is AAOx3 and NAD, resting comfortably in bed. Denies any acute overnight events. States that pain continues to improve. Reports that his dressing was changed by the nurse. Denies any further pedal complaints at this time. Denies any recent N/V/F/C/CP/SOB/D/posterior calf pain Objective - Vital Signs/Intake and Output Vital Signs (last 24 hours): Temp Pulse Resp BP Pulse Ox 97 F L 70 18 141/66 97 01/15/18 11:24 01/15/18 11:24 01/15/18 11:24 01/15/18 11:24 01/15/18 06:00 Intake and Output: 01/15/18 01/15/18 06:59 18:59 Intake Total 960 Output Total 1500 Balance -540 - Medications Medications: Current Medications Atorvastatin Calcium (Lipitor) 20 mg PO DIN [facility] Last Admin: 01/14/18 17:55 Dose: 20 mg Enoxaparin Sodium (Lovenox) 50 mg SC DAILY [facility] PRN Reason: Protocol Linezolid (Zyvox) 600 mg PO BID [facility] PRN Reason: Protocol Metoprolol Succinate (Toprol Xl) 50 mg PO BRK [facility] Last Admin: 01/15/18 08:50 Dose: 50 mg Ondansetron HCl (Zofran Inj) 4 mg IVP ONCE PRN PRN Reason: Nausea/Vomiting Oxycodone/Acetaminophen (Percocet 5/325 Mg Tab) 1 tab PO Q4H PRN PRN Reason: Pain, moderate (4-7) Stop: 01/17/18 14:51 Pantoprazole Sodium (Protonix Ec Tab) 40 mg PO 0630 [facility] Last Admin: 01/15/18 06:28 Dose: 40 mg Tramadol/Acetaminophen (Ultracet 37.5/325 Mg) 1 tab PO Q6H PRN PRN Reason: Pain, moderate (4-7) Last Admin: 01/15/18 07:16 Dose: 1 tab Warfarin Sodium (Coumadin) 10 mg PO 1800 [facility] PRN Reason: Protocol Last Admin: 01/14/18 17:55 Dose: 10 mg - Labs Labs: 01/15/18 09:00 01/15/18 09:00 PT 14.8 SECONDS (9.4-12.5) H 01/15/18 09:45 INR 1.28 01/15/18 09:45 APTT 34.0 Seconds (25.1-36.5) 01/14/18 10:19 - Constitutional Appears: Well, Non-toxic, No Acute Distress - Extremities Exam Additional comments: Dressing is clean, dry and intact; no strike through noted - Neurological Exam Neurological Exam: Alert, Awake, Oriented x3 - Psychiatric Exam Psychiatric exam: Normal Affect, Normal Mood Assessment and Plan - Assessment and Plan (Free Text) Assessment: 82 y/o male seen at bedside for weeping right leg superficial skin ulceration Plan: Patient seen and evaluated Discussed with attending Dr. 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 MRI: No evidence of OM Right lower extremity dressed with xeroform and DSD Plan for surgical wound debridement with application of a graft Podiatry will continue to follow while patient in house <Van Pham - Last Filed: 01/15/18 17:05> Objective - Vital Signs/Intake and Output Vital Signs (last 24 hours): Temp Pulse Resp BP Pulse Ox 97 F L 70 18 141/66 97 01/15/18 13:32 01/15/18 13:32 01/15/18 13:32 01/15/18 13:32 01/15/18 06:00 Intake and Output: 01/15/18 01/15/18 06:59 18:59 Intake Total 960 Output Total 1500 Balance -540 - Medications Medications: Current Medications Atorvastatin Calcium (Lipitor) 20 mg PO DIN [facility] Last Admin: 01/14/18 17:55 Dose: 20 mg Enoxaparin Sodium (Lovenox) 50 mg SC DAILY [facility] PRN Reason: Protocol Linezolid (Zyvox) 600 mg PO BID [facility] PRN Reason: Protocol Metoprolol Succinate (Toprol Xl) 50 mg PO BRK [facility] Last Admin: 01/15/18 08:50 Dose: 50 mg Ondansetron HCl (Zofran Inj) 4 mg IVP ONCE PRN PRN Reason: Nausea/Vomiting Oxycodone/Acetaminophen (Percocet 5/325 Mg Tab) 1 tab PO Q4H PRN PRN Reason: Pain, moderate (4-7) Stop: 01/17/18 14:51 Pantoprazole Sodium (Protonix Ec Tab) 40 mg PO 0630 [facility] Last Admin: 01/15/18 06:28 Dose: 40 mg Tramadol/Acetaminophen (Ultracet 37.5/325 Mg) 1 tab PO Q6H PRN PRN Reason: Pain, moderate (4-7) Last Admin: 01/15/18 07:16 Dose: 1 tab Warfarin Sodium (Coumadin) 10 mg PO 1800 [facility] PRN Reason: Protocol Last Admin: 01/14/18 17:55 Dose: 10 mg - Labs Labs: 01/15/18 09:00 01/15/18 09:00 PT 14.8 SECONDS (9.4-12.5) H 01/15/18 09:45 INR 1.28 01/15/18 09:45 APTT 34.0 Seconds (25.1-36.5) 01/14/18 10:19 Attending/Attestation - Attestation I have personally seen and examined this patient.: Yes I have fully participated in the care of the patient.: Yes I have reviewed all pertinent clinical information, including history, physical exam and plan: Yes
[2018-01-15] MEDS ORDERED: Pneumococcal 23-Valent Vaccine IM ONE (14:19)
--- NOTE | 2018-01-15 15:42 | RAD ---
Date of service: 01/15/2018 HISTORY: pre-op COMPARISON: 04/05/2017 FINDINGS: LUNGS: No active pulmonary disease. PLEURA: No significant pleural effusion identified, no pneumothorax apparent. CARDIOVASCULAR: Normal. OSSEOUS STRUCTURES: No significant abnormalities. VISUALIZED UPPER ABDOMEN: Normal. OTHER FINDINGS: None. IMPRESSION: No active disease.
--- NOTE | 2018-01-15 17:49 | CARD ---
APPROVED REPORT Date of service: 01/15/2018 EKG Measurement Heart [id number] <Conclusion> Normal sinus rhythm Right bundle branch block Left anterior fascicular block Bifascicular block Abnormal ECG
[2018-01-16] MEDS: Pantoprazole 40 mg EC Tab PO SCH (06:07)
[2018-01-16] MEDS: Metoprolol Succinate 50 mg XL Tab PO SCH (08:02)
[2018-01-16] MEDS: Enoxaparin 60 mg Syringe SC SCH (09:29)
--- NOTE | 2018-01-16 12:30 | PN ---
Copied To: Aquilino Garcia MD Attending MD: Aquilino Garcia MD DATE: 01/16/2018 SUBJECTIVE: The patient is 82 years old, seen and examined, lying in bed, seems to be comfortable. No nausea or vomiting. No diarrhea. Eating and tolerating. He states his right leg feels a lot better. He used to feel heavy, now it feels light and warm. PHYSICAL EXAMINATION: VITAL SIGNS: He has temperature of 98.7, pulse 75, respirations 20, blood pressure 150/71. LUNGS: Bilateral fair airflow. No rhonchi or crackle. HEART: S1 and S2 audible. ABDOMEN: Soft. Nontender. No rebound. No guarding. NEUROLOGICAL: The patient is awake, alert, oriented, communicative. LABORATORY EXAM: There is no new lab available today. ASSESSMENT: 1. Status post right leg superficial femoral artery angioplasty and anterior tibial and posterior tibial artery angioplasty and atherectomy. 2. Hypertension. 3. Hyperlipidemia. 4. Right leg deep venous thrombosis. 5. History of alcohol abuse. 6. Hypertension. 7. Right leg cellulitis and terrazas has necrotic ulcer. PLAN: We will hold his Coumadin. He is scheduled for skin graft on Thursday. We will hold his Lovenox on Thursday evening and continue current medication. After the skin graft, he will be transferred back to TCU for close wound heal and bridging of his Lovenox to Coumadin. Aquilino Garcia MD
[2018-01-17] MEDS: Pantoprazole 40 mg EC Tab PO SCH (07:28)
[2018-01-17 07:30] LABS: BASO # 0.02 K/mm3 (0.0-2.0); BASO % 0.2 % (0.0-3.0); EOS # 0.1 (0.0-0.7); GRAN # 7.42 (1.4-6.5); GRAN % 71.6 % (50.0-68.0); HEMOGLOBIN 10.1 g/dL (14.0-18.0); LYMPH # 1.4 (1.2-3.4); LYMPH % 13.2 % (22.0-35.0); MEAN CELL VOLUME 88.3 fl (80.0-105.0); MEAN CORPUSCULAR HEMOGLOBIN 29.5 pg (25.0-35.0); MEAN CORPUSCULAR HGB CONC 33.4 g/dl (31.0-37.0); MEAN PLATELET VOLUME 10.9 fl (7.0-11.0); MONO # 1.5 (0.1-0.6); RBC 3.42 10^6/uL (3.5-6.1); WHITE BLOOD COUNT 10.4 10^3/ul (4.5-11.0)
[2018-01-17] MEDS: Metoprolol Succinate 50 mg XL Tab PO SCH (07:30)
[2018-01-17 07:50] LABS: ALB/GLOB RATIO 0.7 (1.1-1.8); ALBUMIN 3.2 g/dL (3.0-4.8); CALCIUM 8.6 mg/dL (8.4-10.5)
[2018-01-17] MEDS: Enoxaparin 60 mg Syringe SC SCH (09:11)
--- NOTE | 2018-01-17 10:45 | CP.PCM.PN ---
<Devi Lackey - Last Filed: 01/17/18 10:42> Subjective - Date & Time of Evaluation Date of Evaluation: 01/17/18 Time of Evaluation: 10:42 - Subjective Subjective: Podiatry Progress Note for Dr. Pham 82 y/o male seen at bedside for weeping right leg superficial ulceration. Patient is AAOx3 and NAD, resting comfortably in bed. Denies any acute overnight events. States that he has pain but it continues to improve. Denies any further pedal complaints at this time. Reports that he is aware of the procedure tomorrow morning. Denies any recent N/V/F/C/CP/SOB/D/posterior calf pain Objective - Vital Signs/Intake and Output Vital Signs (last 24 hours): Temp Pulse Resp BP Pulse Ox 98.1 F 83 20 153/68 H 99 01/16/18 22:00 01/17/18 07:30 01/16/18 22:00 01/17/18 07:30 01/16/18 22:00 Intake and Output: 01/17/18 01/17/18 06:59 18:59 Intake Total 900 Output Total 250 Balance 650 - Medications Medications: Current Medications Atorvastatin Calcium (Lipitor) 20 mg PO DIN [facility] Last Admin: 01/16/18 17:03 Dose: 20 mg Enoxaparin Sodium (Lovenox) 50 mg SC DAILY [facility] PRN Reason: Protocol Last Admin: 01/17/18 09:11 Dose: Not Given Linezolid (Zyvox) 600 mg PO BID [facility] PRN Reason: Protocol Last Admin: 01/17/18 09:05 Dose: 600 mg Metoprolol Succinate (Toprol Xl) 50 mg PO BRK [facility] Last Admin: 01/17/18 07:30 Dose: 50 mg Ondansetron HCl (Zofran Inj) 4 mg IVP ONCE PRN PRN Reason: Nausea/Vomiting Oxycodone/Acetaminophen (Percocet 5/325 Mg Tab) 1 tab PO Q4H PRN PRN Reason: Pain, moderate (4-7) Stop: 01/17/18 14:51 Last Admin: 01/16/18 06:12 Dose: 1 tab Pantoprazole Sodium (Protonix Ec Tab) 40 mg PO 0630 [facility] Last Admin: 01/17/18 07:28 Dose: 40 mg Tramadol/Acetaminophen (Ultracet 37.5/325 Mg) 1 tab PO Q6H PRN PRN Reason: Pain, moderate (4-7) Last Admin: 01/15/18 07:16 Dose: 1 tab - Labs Labs: 01/17/18 06:30 01/17/18 06:30 PT 14.8 SECONDS (9.4-12.5) H 01/15/18 09:45 INR 1.28 01/15/18 09:45 APTT 34.0 Seconds (25.1-36.5) 01/14/18 10:19 - Constitutional Appears: Well, Non-toxic, No Acute Distress - Extremities Exam Additional comments: LE focused exam: Vasc: DP/PT pulses fully palpable 2/4 b/l. Skin temperature warm to warm from proximal to distal. CFT < 3 seconds to all digits b/l. Moderate, unilateral edema noted to right leg, improved since yesterday Neuro: Epicritic and protective sensation grossly intact b/l Derm: Lanced bullae noted to right lateral leg spanning from level of midcalf down to lateral malleolus with some underlying superficial skin appreciated. No other open lesions, wounds, maceration, xerosis, abnormal pigmentation or abnormal growths noted MSK: POP to lanced blister site. ROM WNL at all major joints. MMT 5/5 in all major muscle groups. No other gross deformities noted - Neurological Exam Neurological Exam: Alert, Awake, Oriented x3 - Psychiatric Exam Psychiatric exam: Normal Affect, Normal Mood Assessment and Plan - Assessment and Plan (Free Text) Assessment: 82 y/o male seen at bedside for weeping right leg superficial skin ulceration Plan: Patient seen and evaluated Discussed with attending Dr. 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 MRI: No evidence of OM Right lower extremity dressed with xeroform and DSD Plan for surgical wound debridement with application of a graft tomorrow morning Podiatry will continue to follow while patient in house <Van Pham - Last Filed: 01/18/18 09:46> Objective - Vital Signs/Intake and Output Vital Signs (last 24 hours): Temp Pulse Resp BP Pulse Ox 97.7 F 77 12 163/78 H 97 01/18/18 09:38 01/18/18 09:38 01/18/18 09:38 01/18/18 09:38 01/18/18 09:38 Intake and Output: 01/18/18 01/18/18 06:59 18:59 Intake Total 360 Balance 360 - Medications Medications: Current Medications Acetaminophen (Tylenol 325mg Tab) 650 mg PO Q4H PRN PRN Reason: Pain, Mild (1-3) Atorvastatin Calcium (Lipitor) 20 mg PO DIN [facility] Last Admin: 01/17/18 17:05 Dose: 20 mg Enoxaparin Sodium (Lovenox) 50 mg SC DAILY [facility] PRN Reason: Protocol Last Admin: 01/17/18 09:11 Dose: Not Given Lactated Ringer's (Lactated Ringer's) 1,000 mls @ 75 mls/hr IV .[id number] [facility] Stop: 01/18/18 10:46 Linezolid (Zyvox) 600 mg PO BID [facility] PRN Reason: Protocol Last Admin: 01/17/18 17:05 Dose: 600 mg Metoprolol Succinate (Toprol Xl) 50 mg PO BRK [facility] Last Admin: 01/18/18 07:07 Dose: 50 mg Morphine Sulfate (Morphine) 2 mg IVP Q15M PRN PRN Reason: Pain, moderate (4-7) Ondansetron HCl (Zofran Inj) 4 mg IVP ONCE PRN PRN Reason: Nausea/Vomiting Oxycodone/Acetaminophen (Percocet 5/325 Mg Tab) 1 tab PO Q4H PRN PRN Reason: Pain, moderate (4-7) Stop: 01/21/18 08:44 Oxycodone/Acetaminophen (Percocet 5/325 Mg Tab) 2 tab PO Q4H PRN PRN Reason: Pain, severe (8-10) Stop: 01/21/18 08:44 Pantoprazole Sodium (Protonix Ec Tab) 40 mg PO 0630 [facility] Last Admin: 01/18/18 05:45 Dose: Not Given Tramadol/Acetaminophen (Ultracet 37.5/325 Mg) 1 tab PO Q6H PRN PRN Reason: Pain, moderate (4-7) Last Admin: 01/15/18 07:16 Dose: 1 tab - Labs Labs: 01/17/18 06:30 01/17/18 06:30 PT 14.8 SECONDS (9.4-12.5) H 01/15/18 09:45 INR 1.28 01/15/18 09:45 APTT 34.0 Seconds (25.1-36.5) 01/14/18 10:19 Attending/Attestation - Attestation I have personally seen and examined this patient.: Yes I have fully participated in the care of the patient.: Yes I have reviewed all pertinent clinical information, including history, physical exam and plan: Yes
--- NOTE | 2018-01-17 15:02 | PN ---
Copied To: Jose Pineda MD Attending MD: Jose Pineda MD DATE: 01/17/2018 SUBJECTIVE: The patient has no complaints of any chest pain. No shortness of breath. No headaches. PHYSICAL EXAMINATION: VITAL SIGNS: Temperature is 98.1, pulse of 83, blood pressure 153/68, respirations 20. GENERAL: The patient is lying in bed, flat, comfortable. HEENT: No oral lesion. Anicteric sclerae. Moist mucosa. NECK: No JVD, adenopathy, or thyromegaly. CARDIOVASCULAR: S1 and S2, regular. No murmurs, rubs, or gallops. LUNGS: Clear to auscultation bilaterally. No wheeze, rales, or rhonchi. ABDOMEN: Bowel sounds are positive, soft, nontender and nondistended. EXTREMITIES: No cyanosis, clubbing or edema. LABORATORY DATA: White count of 10.4, hemoglobin 10.1. Creatinine is 1.6. ASSESSMENT: 1. Status post left leg femoral artery angioplasty. 2. Peripheral arterial disease. 3. Hypertension. 4. Dyslipidemia. 5. Right leg deep venous thrombosis. 6. Hypertension. 7. History of alcohol abuse. 8. Right leg cellulitis. PLAN: The patient is on Lipitor for dyslipidemia. He is going to continue with Percocet for pain. The patient is on Lovenox for anticoagulation. The patient is receiving Zofran as needed. He is on Zyvox. He is going to be on a heart-healthy diet. We will have his Lovenox on hold this evening because the patient is going to the OR tomorrow. Jose Pineda MD
[2018-01-18] MEDS: Pantoprazole 40 mg EC Tab PO SCH (05:45)
[2018-01-18] MEDS: Metoprolol Succinate 50 mg XL Tab PO SCH (07:07)
[2018-01-18] MEDS ORDERED: Propofol 10 mg/ml Inj (20 ML) ONE (07:28)
[2018-01-18] MEDS ORDERED: Lidocaine PF 2% (5 ml) Inj (For Cardiac Arrhy) ONE (07:29)
--- NOTE | 2018-01-18 08:17 | PN ---
Copied To: Van Pham DPM Attending MD: Van Pham DPM DATE: 01/16/2018 SUBJECTIVE: This is an 82-year-old male who was seen at bedside for continued evaluation and management of ulceration to his right lower leg. The patient is status post arteriogram and is scheduled for surgical debridement on 01/18/2018, at 07:30 a.m. with application of synthetic skin graft. The patient is alert and oriented and in no apparent distress. He denies any fever, chills, nausea or shortness of breath. He has been ambulating as tolerated with surgical shoe. OBJECTIVE: Vital signs reveal a temperature of 99.1, blood pressure of , respiratory rate of 16. Weakly palpable pedal pulses noted bilaterally. Absent pedal hair growth noted bilaterally. The patient is unable to detect 5.07 g monofilament wire testing bilaterally. There is a large relatively superficial ulceration on the anterior and medial aspect of his right lower leg. There is an area of necrotic tissue distally and the proximal portion of the ulceration is granular. There is no purulence noted. There is no malodor. There are no signs of underlying abscess formation. The ulceration does not probe to tendon or bone. DATA: MRI taken reveals no evidence of osteomyelitis. Laboratory findings reveal a white count of 14.1, hemoglobin of 11.5, hematocrit of 33.6, platelet count of 178. ASSESSMENT: Arterial ulceration to the right lower leg. PLAN: The patient was evaluated. His wound was cleansed with normal sterile saline and application of Xeroform and dry sterile dressing was applied. Clinically, the patient's wound does not look infected. However, he does show white count of 14.1 at this time, will be scheduled to be brought into the Operating Room on 01/18/2018 at 07:30 a.m. for excisional debridement and application of skin grafting. The patient will be seen and followed daily while in-house. We will order ESR to monitor his leukocytosis. Van Pham DPM
[2018-01-18] MEDS ORDERED: Morphine 2 mg/ml ISec IVP PRN ×2 (08:39→08:49)
[2018-01-18] MEDS ORDERED: Oxycodone/Acetaminophen 5/325 mg Tab PO PRN (08:43)
[2018-01-18] MEDS ORDERED: Lactated Ringer's 1,000 ML IV SCH (08:45)
--- NOTE | 2018-01-18 08:47 | PCM.SURG1 ---
Surgeon's Initial Post Op Note - Surgeon's Notes Surgeon: Dr. Van Pham DPM Cold Header Operator: Dr. Clare Mosley DPM PGY-1; Dr. Devi Lackey DPM PGY-2 Type of Anesthesia: General LMA Anesthesia Administered By: Dr. Oscar CHANG Pre-Operative Diagnosis: Right leg chronic arterial wound Operative Findings: See dictation. M: Integra graft, Amy. I: None Post-Operative Diagnosis: Same Operation Performed: Right leg wound debridement using Misonix and application of Integra graft Specimen/Specimens Removed: Debrided soft tissue Estimated Blood Loss: EBL {In ML}: 2 Blood Products Given: N/A Drains Used: No Drains Post-Op Condition: Good Date of Surgery/Procedure: 01/18/18 Time of Surgery/Procedure: 08:47
--- NOTE | 2018-01-18 11:48 | PN ---
Copied To: Aquilino Garcia MD Attending MD: Aquilino Garcia MD DATE: 01/18/2018 SUBJECTIVE: The patient is 82 years old. Initially came with the right terrazas erythema, blisters that were lanced. His upper part of the wound was healing; however, lower it along with the foot was necrotic, so angiography was done by Dr. Silver Dempsey on 01/14/2018 and he underwent right superficial femoral recanalization with balloon angioplasty and stent placement and right popliteal artery drug eluted balloon angioplasty and right anterior tibial atherectomy and angioplasty done followed by skin grafting today. PHYSICAL EXAMINATION: GENERAL: On examination, he is awake, alert, oriented, communicative. VITAL SIGNS: He is afebrile, pulse 77, respirations 12, blood pressure 163/78. LUNGS: Bilateral good airflow. No rhonchi or crackle. HEART: S1 and S2 audible. ABDOMEN: Soft. Nontender. No rebound. No guarding. NEUROLOGICAL: He is awake, alert, oriented, communicative. LABORATORY EXAM: There is no new lab available today. ASSESSMENT: 1. Status post right leg cellulitis, status post right leg angioplasty of superficial femoral, posterior tibial, popliteal and anterior tibial angioplasty. 2. Hypertension., 3. History of cirrhosis of liver. 4. Active smoker. PLAN: Currently, the patient is on statin. He is on deep venous thrombosis prophylaxis. We will continue on Zyvox and analgesia. We will follow up CBC, CMP in the a.m. We will request for TCU evaluation and might have to restart Coumadin when okay with surgical team. If he has bed, he will be transferred to TCU. Aquilino Garcia MD
--- NOTE | 2018-01-19 02:06 | OP ---
Copied To: Van Pham DPM Attending MD: Van Pham DPM PROCEDURE DATE: 01/18/2018 INDICATIONS: An 82-year-old male with a history of severe peripheral arterial disease and a narrow gangrenous arterial disease and right lower extremity gangrenous right lower leg ulceration, who is being brought into the operating room today for excisional debridement and application of skin grafting. The patient had interventional vascular procedure performed which reveals patent right SFA at this time. He is being brought into the operating room in an attempt to remove all gangrenous necrotic tissue and place a skin graft over the area in an effort to heal his wounds and save his right lower leg. PROCEDURE IN DETAILS: The patient was brought into the operating room in his hospital bed and transferred on the operating room table in the supine position. Following intubation and general anesthesia, attention was directed to the right lower leg where there was noted to be a large extensive gangrenous ulceration that extended from his proximal right lower leg down to the distal leg at the level of the anterior ankle. The wound was a mixture of fibrotic, granular and gangrenous tissue with the gangrenous tissue being located most distal. The right lower leg was then scrubbed, draped and cleansed in the aseptic fashion. Using three #15 blades, the gangrenous and necrotic tissue was removed using the Misonix hydro-debriding agent at the base of the ulceration was dramatically debrided to as much granular tissue as could be which was approximately 30% of the entire wound. Next, utilizing a sterile full-thickness Integra graft, the graft was placed over the distal aspect of the wound and adhered with sterile janeth. The surgical area was covered with sterile Adaptic, sterile 4 x 4 socked saline gauze and light compressive sterile dressing was applied. The patient was brought from the operating room to the recovery room with all vital signs stable. We will continue on preop medications and diet and the patient would be brought back to his room once stabilized. He will be followed up in the a.m. Van Pham DPM
[2018-01-19] MEDS: Metoprolol Succinate 50 mg XL Tab PO SCH ×2 (06:10→09:24)
[2018-01-19] MEDS: Pantoprazole 40 mg EC Tab PO SCH (06:11)
[2018-01-19 07:23] LABS: BASO # 0.02 K/mm3 (0.0-2.0); BASO % 0.3 % (0.0-3.0); EOS # 0.1 (0.0-0.7); EOS % 1.8 % (1.5-5.0); GRAN # 5.67 (1.4-6.5); GRAN % 74.1 % (50.0-68.0); HEMOGLOBIN 10.1 g/dL (14.0-18.0); LYMPH # 1.2 (1.2-3.4); LYMPH % 15.1 % (22.0-35.0); MEAN CELL VOLUME 89.1 fl (80.0-105.0); MEAN CORPUSCULAR HEMOGLOBIN 29.7 pg (25.0-35.0); MEAN CORPUSCULAR HGB CONC 33.3 g/dl (31.0-37.0); MEAN PLATELET VOLUME 9.9 fl (7.0-11.0); MONO # 0.7 (0.1-0.6); MONO % 8.7 % (1.0-6.0); RBC 3.4 10^6/uL (3.5-6.1); WHITE BLOOD COUNT 7.7 10^3/ul (4.5-11.0)
[2018-01-19 07:43] LABS: ALB/GLOB RATIO 0.7 (1.1-1.8); ALBUMIN 3.3 g/dL (3.0-4.8); CALCIUM 8.7 mg/dL (8.4-10.5)
--- NOTE | 2018-01-19 08:03 | OP ---
Copied To: RUDDY MOSLEY MD Attending MD: Van Pham DPM PROCEDURE DATE: 01/18/2018 SURGEON: Van Pham DPM CHANNEL MACHINE OPERATOR: Ruddy Mosley MD, PGY-1, Devi Lackey DPM, PGY-2 ANESTHESIOLOGIST: Dr. Moore. ANESTHESIA: General LMA. PREOPERATIVE DIAGNOSIS: Gangrenous arterial right lower leg ulceration. POSTOPERATIVE DIAGNOSIS: Gangrenous arterial right lower leg ulceration. NAME OF PROCEDURE: Excisional debridement of the right leg wound using Misonix and application of Integra graft. INDICATIONS: The patient is an 82-year-old male with the above diagnosis. The patient has exhausted all conservative treatment at this time and now requires surgical intervention. The patient has signed the consent after careful explanation of the risks, benefits, complications and alternatives to the surgical procedure. No guarantees were given or implied. N.p.o. status was confirmed prior to taking the patient to the OR. DESCRIPTION OF PROCEDURE: The patient was brought into the operating room and placed on operating room table in a supine position. Time-out was performed for identification of the correct patient and procedure. Right foot was then prepped and draped in normal sterile manner, and the procedure began. No tourniquet was used during the procedure. Attention was then drawn to the right lateral leg wound. The wound was debrided, removing all nonviable tissue using a #15 blade, and healthy granular tissue was noted. The wound was debrided to the level of granular tissue with care being taken to avoid neurovascular structure. Good bleeding was noted to the wound. The wound bed was . The wound was then debrided using the Misonix device. Integra graft was then measured to the size of the wound and applied. The graft was secured with the use of janeth along the edge of the wound. Specimen titled debrided soft tissue was sent to the pathology. Wound was dressed with nonadherent Adaptic, bolster dressing, Kerlix and Coban. POSTOPERATIVE CONDITION: The patient tolerated local anesthesia and procedure well, and was escorted to the recovery room with neurovascular status intact to the right foot and vital signs stable. Patient is to weight-bear as tolerated. At this time, patient will remain in-house and Podiatry will continue to follow. RUDDY MOSLEY MD Van ARTUR Pham [facility] # [id number] OMO
[2018-01-19] MEDS: Enoxaparin 60 mg Syringe SC SCH (09:23)
--- NOTE | 2018-01-19 13:49 | CP.PCM.PN ---
Subjective - Date & Time of Evaluation Date of Evaluation: 01/19/18 Time of Evaluation: 13:45 - Subjective Subjective: Podiatry Progress Note for Dr. Pham 82 y/o male seen at bedside 1 day s/p right leg wound debridement with application of a graft. Patient is AAOx3 and NAD, resting comfortably in bed. Denies any acute overnight events. Denies of any pain today. Denies any further pedal complaints at this time. Denies any recent N/V/F/C/CP/SOB/D/posterior calf pain Objective - Vital Signs/Intake and Output Vital Signs (last 24 hours): Temp Pulse Resp BP Pulse Ox 97.6 F 73 18 126/61 100 01/19/18 08:05 01/19/18 09:24 01/19/18 08:05 01/19/18 09:24 01/19/18 08:05 Intake and Output: 01/19/18 01/19/18 06:59 18:59 Intake Total 740 Output Total 225 Balance 515 - Medications Medications: Current Medications Acetaminophen (Tylenol 325mg Tab) 650 mg PO Q4H PRN PRN Reason: Pain, Mild (1-3) Atorvastatin Calcium (Lipitor) 20 mg PO DIN [facility] Last Admin: 01/18/18 18:19 Dose: 20 mg Enoxaparin Sodium (Lovenox) 50 mg SC DAILY [facility] PRN Reason: Protocol Last Admin: 01/19/18 09:23 Dose: 50 mg Linezolid (Zyvox) 600 mg PO BID [facility] PRN Reason: Protocol Last Admin: 01/19/18 09:24 Dose: 600 mg Metoprolol Succinate (Toprol Xl) 50 mg PO BRK [facility] Last Admin: 01/19/18 09:24 Dose: 50 mg Oxycodone/Acetaminophen (Percocet 5/325 Mg Tab) 1 tab PO Q4H PRN PRN Reason: Pain, moderate (4-7) Stop: 01/21/18 08:44 Oxycodone/Acetaminophen (Percocet 5/325 Mg Tab) 2 tab PO Q4H PRN PRN Reason: Pain, severe (8-10) Stop: 01/21/18 08:44 Pantoprazole Sodium (Protonix Ec Tab) 40 mg PO 0630 [facility] Last Admin: 01/19/18 06:11 Dose: 40 mg Tramadol/Acetaminophen (Ultracet 37.5/325 Mg) 1 tab PO Q6H PRN PRN Reason: Pain, moderate (4-7) Last Admin: 01/15/18 07:16 Dose: 1 tab Warfarin Sodium (Coumadin) 10 mg PO 1800 [facility] PRN Reason: Protocol - Labs Labs: 01/19/18 06:00 01/19/18 06:00 PT 14.8 SECONDS (9.4-12.5) H 01/15/18 09:45 INR 1.28 01/15/18 09:45 APTT 34.0 Seconds (25.1-36.5) 01/14/18 10:19 - Constitutional Appears: Well, Non-toxic, No Acute Distress - Extremities Exam Additional comments: Dressing to the RLE is clean, dry and intact. No strikethrough is noted - Neurological Exam Neurological Exam: Alert, Awake, Oriented x3 - Psychiatric Exam Psychiatric exam: Normal Affect, Normal Mood Assessment and Plan - Assessment and Plan (Free Text) Assessment: 82 y/o male seen at bedside 1 day s/p right leg wound debridement and application of graft Plan: Patient seen and evaluated Discussed with attending Dr. 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 MRI: No evidence of OM Right LE dressing - LEAVE INTACT Patient is stable from podiatry standpoint Upon discharge, follow up with Dr. Pham/Dr. Leach at the wound care center Podiatry will continue to follow while patient in house
[2018-01-19] MEDS: Oxycodone/Acetaminophen 5/325 mg Tab PO PRN (22:51)
--- NOTE | 2018-01-20 05:11 | DS ---
Copied To: Aquilino Garcia MD Attending MD: Aquilino Garcia MD HISTORY OF PRESENT ILLNESS: The patient is 82 years old, seen and examined. Patient was initially admitted with right terrazas cellulitis. He has lower wound, was necrotic. He had vascular study done, underwent superficial femoral, posterior tibial, popliteal and anterior tibial artery angioplasty, atherectomy and stent placed. Seems to be doing well. Yesterday had skin grafting done, anxious to go home. It was explained to him that it is not safe to go home as we have to watch his wound. He agreed to go to TCU and he is accepted, being transferred to TCU. PHYSICAL EXAMINATION: GENERAL: Today on examination, he is awake, alert, oriented, communicative. VITAL SIGNS: He is afebrile, pulse 71, respirations 18, blood pressure 126/61. LUNGS: Bilateral fair airflow. No rhonchi or crackle. HEART: S1 and S2 audible. ABDOMEN: Soft. Nontender. No rebound. No guarding. NEUROLOGICAL: He is awake, alert, oriented, communicative. LABORATORY EXAM: WBC 7.7, hemoglobin 10, hematocrit 30, platelet 183. Chemistry: Sodium 135, potassium 4.8, chloride 99, CO2 of 25, BUN 16, creatinine 1.6. Blood sugar of 108. ASSESSMENT: 1. Right lower extremity skin grafting. 2. Peripheral vascular disease, status post angioplasty. 3. Hypertension. 4. Hyperlipidemia. 5. History of alcohol abuse. PLAN: Patient is being transferred to TCU today. We will continue him on statin. He is on Lovenox, analgesic as needed. We will start him on Coumadin and we will monitor his PT/INR while he is in TCU. Aquilino Garcia MD
[2018-01-20 07:14] LABS: BASO # 0.03 K/mm3 (0.0-2.0); BASO % 0.5 % (0.0-3.0); EOS # 0.2 (0.0-0.7); EOS % 2.3 % (1.5-5.0); GRAN # 4.27 (1.4-6.5); LYMPH # 1.5 (1.2-3.4); LYMPH % 22.8 % (22.0-35.0); MEAN CELL VOLUME 89.6 fl (80.0-105.0); MEAN CORPUSCULAR HEMOGLOBIN 29.8 pg (25.0-35.0); MEAN CORPUSCULAR HGB CONC 33.2 g/dl (31.0-37.0); MEAN PLATELET VOLUME 9.8 fl (7.0-11.0); MONO # 0.5 (0.1-0.6); MONO % 8.4 % (1.0-6.0); RBC 3.36 10^6/uL (3.5-6.1); RED CELL DISTRIBUTION WIDTH 15.1 % (11.5-14.5); WHITE BLOOD COUNT 6.5 10^3/ul (4.5-11.0)
[2018-01-20 07:19] LABS: INR 1.06; PROTHROMBIN TIME 12.2 SECONDS (9.4-12.5)
[2018-01-20 07:53] LABS: ALB/GLOB RATIO 0.7 (1.1-1.8); ALBUMIN 3.3 g/dL (3.0-4.8); CALCIUM 8.6 mg/dL (8.4-10.5)
[2018-01-20 07:57] VITALS: BP 133/62; PULSE 68; RESP 20; TEMP 98; O2SAT 100
[2018-01-20] MEDS: Pantoprazole 40 mg EC Tab PO SCH (10:18)
[2018-01-20] MEDS: Metoprolol Succinate 50 mg XL Tab PO SCH (10:18)
[2018-01-20] MEDS: Enoxaparin 60 mg Syringe SC SCH (10:19)
--- NOTE | 2018-01-20 10:40 | CP.PCM.PN ---
<Devi Lackey - Last Filed: 01/20/18 10:38> Subjective - Date & Time of Evaluation Date of Evaluation: 01/20/18 Time of Evaluation: 10:38 - Subjective Subjective: Podiatry Progress Note for Dr. Pham 82 y/o male seen at bedside 2 days s/p right leg wound debridement with application of a graft. Patient is AAOx3 and NAD, resting comfortably in bed. Denies any acute overnight events. Denies of any pain today. Denies recent N/V/F /C/CP/SOB/D/posterior calf pain. Denies any further pedal complaints at this time. Objective - Vital Signs/Intake and Output Vital Signs (last 24 hours): Temp Pulse Resp BP Pulse Ox 98 F 68 20 133/62 100 01/20/18 06:00 01/20/18 06:00 01/20/18 06:00 01/20/18 06:00 01/20/18 06:00 Intake and Output: 01/20/18 01/20/18 06:59 18:59 Intake Total 840 Output Total 0 Balance 840 - Medications Medications: Current Medications Acetaminophen (Tylenol 325mg Tab) 650 mg PO Q4H PRN PRN Reason: Pain, Mild (1-3) Atorvastatin Calcium (Lipitor) 20 mg PO DIN [facility] Last Admin: 01/19/18 17:17 Dose: 20 mg Enoxaparin Sodium (Lovenox) 50 mg SC DAILY [facility] PRN Reason: Protocol Last Admin: 01/20/18 10:19 Dose: 50 mg Linezolid (Zyvox) 600 mg PO BID [facility] PRN Reason: Protocol Last Admin: 01/20/18 10:18 Dose: 600 mg Metoprolol Succinate (Toprol Xl) 50 mg PO BRK [facility] Last Admin: 01/20/18 10:18 Dose: 50 mg Oxycodone/Acetaminophen (Percocet 5/325 Mg Tab) 1 tab PO Q4H PRN PRN Reason: Pain, moderate (4-7) Stop: 01/21/18 08:44 Last Admin: 01/19/18 22:51 Dose: 1 tab Oxycodone/Acetaminophen (Percocet 5/325 Mg Tab) 2 tab PO Q4H PRN PRN Reason: Pain, severe (8-10) Stop: 01/21/18 08:44 Pantoprazole Sodium (Protonix Ec Tab) 40 mg PO 0630 [facility] Last Admin: 01/20/18 10:18 Dose: 40 mg Tramadol/Acetaminophen (Ultracet 37.5/325 Mg) 1 tab PO Q6H PRN PRN Reason: Pain, moderate (4-7) Last Admin: 01/15/18 07:16 Dose: 1 tab Warfarin Sodium (Coumadin) 10 mg PO 1800 [facility] PRN Reason: Protocol Last Admin: 01/19/18 17:17 Dose: 10 mg - Labs Labs: 01/20/18 06:45 01/20/18 06:45 PT 12.2 SECONDS (9.4-12.5) 01/20/18 06:45 INR 1.06 01/20/18 06:45 APTT 34.0 Seconds (25.1-36.5) 01/14/18 10:19 - Constitutional Appears: Well, Non-toxic, No Acute Distress - Extremities Exam Additional comments: Dressing to the RLE is clean, dry and intact. No strikethrough is noted - Neurological Exam Neurological Exam: Alert, Awake, Oriented x3 - Psychiatric Exam Psychiatric exam: Normal Affect, Normal Mood Assessment and Plan - Assessment and Plan (Free Text) Assessment: 82 y/o male seen at bedside 2 days s/p right leg wound debridement and application of graft Plan: Patient seen and evaluated Discussed with attending Dr. 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 MRI: No evidence of OM Right LE dressing - LEAVE INTACT - After the wound debridement procedure, the wound measured approx 14 cm x 6 cm x 0.7 cm. Patient currently has a graft on the right leg. Patient is stable from podiatry standpoint Upon discharge, follow up with Dr. Pham/Dr. Leach at the wound care center Podiatry will continue to follow while patient in house <Van Pham - Last Filed: 01/21/18 09:39> Objective - Vital Signs/Intake and Output Vital Signs (last 24 hours): Temp Pulse Resp BP Pulse Ox 98 F 68 20 133/62 100 01/20/18 06:00 01/20/18 06:00 01/20/18 06:00 01/20/18 06:00 08/22/18 06:00 - Labs Labs: 01/20/18 06:45 01/20/18 06:45 PT 12.2 SECONDS (9.4-12.5) 01/20/18 06:45 INR 1.06 01/20/18 06:45 APTT 34.0 Seconds (25.1-36.5) 01/14/18 10:19
[2018-01-20] MEDS ORDERED: Magnesium 2 gm/50 ml NS 2 GM/50 ML BAG IVPB ONE (11:52)
[2018-01-20] MEDS: Oxycodone/Acetaminophen 5/325 mg Tab PO PRN (12:16)
--- NOTE | 2018-01-21 07:29 | DS ---
Copied To: Aquilino Garcia MD Attending MD: Aquilino Garcia MD HOSPITAL COURSE: The patient is 82-year-old who was admitted initially with right leg swelling, blister and he had necrotic wound on dorsum of his foot extending to the lower terrazas, had angioplasty done, did well, ended up having skin graft that was done two days ago, now is sent to TCU today for wound care and physical therapy. PHYSICAL EXAMINATION: GENERAL: Today, he is awake, alert, oriented, communicative. VITAL SIGNS: He is afebrile, pulse 68, respirations 20, blood pressure 133/62. LUNGS: Bilateral fair airflow. No rhonchi or crackle. HEART: S1 and S2 audible. ABDOMEN: Soft, nontender. No rebound, no guarding. NEUROLOGIC: He is awake, alert, oriented, communicative. LABORATORY DATA: WBC is 6.5, hemoglobin 10, hematocrit 30, platelets 163. PT is 12.2, INR 1.06. Chemistry: Sodium 132, potassium 5.1, chloride 101, CO2 22, BUN 18, creatinine 1.5, blood sugar of 107. ASSESSMENT AND PLAN: 1. Right terrazas and dorsum of foot skin graft. 2. Peripheral vascular disease, status post superficial femoral, popliteal and anterior tibial artery angioplasty, atherectomy and stent placement. 3. History of alcohol use. 4. Hypertension. PLAN: The patient is going to be transferred to TCU today. Dr. Leach and will follow up for wound care and currently, he is on Coumadin 10 mg daily. We will skip blood work today. He complains of being poked too much. We will continue him on Lovenox, analgesic as needed and we will follow up the patient in TCU tomorrow. Currently, he is on Zyvox 600 twice a day also. We will continue that as per ID recommendation. Aquilino Garcia MD
== END 2018-01-20 14:19 | DRG 271 ==
LOC: SDSVAS 09:22 → 2RSO 15:55 → SDSVAS 01-15 11:32 → 5RNO 01-15 14:27
PROVIDERS: ADMIT Internal Medicine; ATTEND Internal Medicine
PROC: 04CP3ZZ Extirpation of Matter from Right Anterior Tibial Artery, Percutaneous Approach (ICD-10-PCS; principal; 2018-01-14)
PROC: 047M34Z Dilation of Right Popliteal Artery with Drug-eluting Intraluminal Device, Percutaneous Approach (ICD-10-PCS; 2018-01-14)
PROC: 047K3EZ Dilation of Right Femoral Artery with Two Intraluminal Devices, Percutaneous Approach (ICD-10-PCS; 2018-01-14)
PROC: B41DYZZ Fluoroscopy of Aorta and Bilateral Lower Extremity Arteries using Other Contrast (ICD-10-PCS; 2018-01-14)
PROC: 3E03328 Introduction of Oxazolidinones into Peripheral Vein, Percutaneous Approach (ICD-10-PCS; 2018-01-15)
PROC: 0HRKXK3 Replacement of Right Lower Leg Skin with Nonautologous Tissue Substitute, Full Thickness, External Approach (ICD-10-PCS; 2018-01-18)
PROC: 0JDN0ZZ Extraction of Right Lower Leg Subcutaneous Tissue and Fascia, Open Approach (ICD-10-PCS; 2018-01-18)
DX: I70.261 Atherosclerosis of native arteries of extremities with gangrene, right leg (principal); L97.819 Non-pressure chronic ulcer of other part of right lower leg with unspecified severity; L03.115 Cellulitis of right lower limb; I82.401 Acute embolism and thrombosis of unspecified deep veins of right lower extremity; F17.210 Nicotine dependence, cigarettes, uncomplicated; I12.9 Hypertensive chronic kidney disease with stage 1 through stage 4 chronic kidney disease, or unspecified chronic kidney disease; N18.9 Chronic kidney disease, unspecified; E78.5 Hyperlipidemia, unspecified; K70.30 Alcoholic cirrhosis of liver without ascites; F10.10 Alcohol abuse, uncomplicated

== ENCOUNTER 2018-01-20 14:28 | Inpatient (IN) | payer MEDICARE ==
[2018-01-20 14:43] VITALS: BMI 16.9
[2018-01-20] MEDS ORDERED: Oxycodone/Acetaminophen 5/325 mg Tab PO PRN (15:04)
[2018-01-20] MEDS ORDERED: Pneumococcal 23-Valent Vaccine IM ONE (16:11)
[2018-01-20] MEDS: Oxycodone/Acetaminophen 5/325 mg Tab PO PRN (19:47)
[2018-01-21] MEDS: Enoxaparin 60 mg Syringe SC SCH (05:52)
[2018-01-21] MEDS: Pantoprazole 40 mg EC Tab PO SCH (05:52)
--- NOTE | 2018-01-21 08:27 | CP.PCM.CON ---
<Devi Lackey - Last Filed: 01/21/18 08:25> History of Present Illness - History of Present Illness History of Present Illness: Podiatry Consult Note for Dr. Pham 82 y/o male seen at bedside 3 days s/p right leg wound debridement with application of a graft. Patient is consulted for continued care. Patient is AAOx3 and NAD, resting comfortably in bed. Denies any acute overnight events. Denies of any pain today. Denies recent N/V/F/C/CP/SOB/D/posterior calf pain. Denies any further pedal complaints at this time. Review of Systems - Constitutional Constitutional: As Per HPI Past Patient History - Infectious Disease Hx of Infectious Diseases: None - Tetanus Immunizations Tetanus Immunization: Unknown - Past Social History Smoking Status: Current Some Days Smoker - CARDIAC Hx Cardiac Disorders: Yes (FEMORAL ANGIOGRAM 01-15-18) Hx Congestive Heart Failure: Yes Hx Hypercholesterolemia: Yes Hx Hypertension: Yes - PULMONARY Hx Chronic Obstructive Pulmonary Disease (COPD): Yes - NEUROLOGICAL Hx Paralysis: No - HEENT Hx HEENT Problems: Yes Hx Cataracts: Yes - RENAL Hx Chronic Kidney Disease: No - ENDOCRINE/METABOLIC Hx Endocrine Disorders: No - HEMATOLOGICAL/ONCOLOGICAL Hx Blood Transfusions: No - INTEGUMENTARY Hx Dermatological Problems: Yes Other/Comment: 01-04-18 PROGRESSIVELY WORSENING RIGHT LEG CELLULITIS.WITH LARGE BLISTER FORMATION,MEDIUM AMOUNT OF SEROUS DRAINAGE.PAIN.ERYTHEMA.STARTED APR 06. 01-15-18 POST FEMORAL ANGIOGRAM. LANCED LARGE BLISTER TO RIGHT GONZALES.+ NECROTIC TISSUE.DRY.LESS PAIN. - MUSCULOSKELETAL/RHEUMATOLOGICAL Hx Falls: No - GASTROINTESTINAL Hx Gastrointestinal Disorders: Yes (DIVERTICULITIS,GERD,GASTRITIS,POOR APPETITE) - GENITOURINARY/GYNECOLOGICAL Hx Genitourinary Disorders: No Hx Reproductive Disorders: Yes (SCRAPING DONE ON PROSTATE) - PSYCHIATRIC Hx Emotional Abuse: No Hx Physical Abuse: No Hx Substance Use: No - SURGICAL HISTORY Hx Surgeries: Yes - ANESTHESIA Hx Anesthesia Reactions: No Hx Malignant Hyperthermia: No Meds Allergies/Adverse Reactions: Allergies Allergy/AdvReac Type Severity Reaction Status Date / Time No Known Allergies Allergy Verified 01/15/18 13:25 - Medications Medications: Current Medications Acetaminophen (Tylenol 325mg Tab) 650 mg PO Q4H PRN; Protocol PRN Reason: Pain, Mild (1-3) Atorvastatin Calcium (Lipitor) 20 mg PO DIN [facility] PRN Reason: Protocol Last Admin: 01/20/18 17:45 Dose: 20 mg Enoxaparin Sodium (Lovenox) 50 mg SC 0600 [facility] PRN Reason: Protocol Last Admin: 01/21/18 05:52 Dose: 50 mg Linezolid (Zyvox) 600 mg PO BID [facility] PRN Reason: Protocol Last Admin: 01/20/18 17:46 Dose: 600 mg Metoprolol Succinate (Toprol Xl) 50 mg PO BRK [facility] PRN Reason: Protocol Oxycodone/Acetaminophen (Percocet 5/325 Mg Tab) 1 tab PO Q4H PRN; Protocol PRN Reason: Pain, moderate (4-7) Stop: 01/23/18 14:57 Last Admin: 01/20/18 19:47 Dose: 1 tab Oxycodone/Acetaminophen (Percocet 5/325 Mg Tab) 2 tab PO Q4H PRN; Protocol PRN Reason: Pain, severe (8-10) Stop: 01/23/18 15:05 Pantoprazole Sodium (Protonix Ec Tab) 40 mg PO 0630 [facility] PRN Reason: Protocol Last Admin: 01/21/18 05:52 Dose: 40 mg Tramadol/Acetaminophen (Ultracet 37.5/325 Mg) 1 tab PO Q6H PRN; Protocol PRN Reason: Pain, moderate (4-7) Warfarin Sodium (Coumadin) 10 mg PO 1800 [facility] PRN Reason: Protocol Last Admin: 01/20/18 17:44 Dose: 10 mg Physical Exam - Constitutional Appears: Well, Non-toxic, No Acute Distress - Extremities Exam Additional comments: Dressing to the RLE is clean, dry and intact. No strikethrough is noted - Neurological Exam Neurological exam: Alert, Oriented x3 - Psychiatric Exam Psychiatric exam: Normal Affect, Normal Mood Results - Vital Signs Recent Vital Signs: Last Vital Signs Temp 97.6 F 01/20/18 16:44 Pulse 67 01/20/18 16:44 Resp 18 01/20/18 16:44 BP 135/67 01/20/18 16:44 Pulse Ox 93 L 01/20/18 16:44 Assessment & Plan - Assessment and Plan (Free Text) Assessment: 82 y/o male seen at bedside 3 days s/p right leg wound debridement and application of graft Plan: Patient seen and evaluated Discussed with attending Dr. 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 MRI: No evidence of OM Right LE dressing - LEAVE INTACT - After the wound debridement procedure, the wound measured approx 14 cm x 6 cm x 0.7 cm. Patient currently has a graft on the right leg. Patient is stable from podiatry standpoint Upon discharge, follow up with Dr. Pham/Dr. Leach at the wound care center Podiatry will continue to follow while patient in house - Date & Time Date: 01/21/18 Time: 08:27 <Van Pham - Last Filed: 01/21/18 09:41> Meds - Medications Medications: Current Medications Acetaminophen (Tylenol 325mg Tab) 650 mg PO Q4H PRN; Protocol PRN Reason: Pain, Mild (1-3) Atorvastatin Calcium (Lipitor) 20 mg PO DIN [facility] PRN Reason: Protocol Last Admin: 01/20/18 17:45 Dose: 20 mg Enoxaparin Sodium (Lovenox) 50 mg SC 0600 [facility] PRN Reason: Protocol Last Admin: 01/21/18 05:52 Dose: 50 mg Linezolid (Zyvox) 600 mg PO BID [facility] PRN Reason: Protocol Last Admin: 01/20/18 17:46 Dose: 600 mg Metoprolol Succinate (Toprol Xl) 50 mg PO BRK [facility] PRN Reason: Protocol Last Admin: 01/21/18 08:36 Dose: 50 mg Oxycodone/Acetaminophen (Percocet 5/325 Mg Tab) 1 tab PO Q4H PRN; Protocol PRN Reason: Pain, moderate (4-7) Stop: 01/23/18 14:57 Last Admin: 01/20/18 19:47 Dose: 1 tab Oxycodone/Acetaminophen (Percocet 5/325 Mg Tab) 2 tab PO Q4H PRN; Protocol PRN Reason: Pain, severe (8-10) Stop: 01/23/18 15:05 Pantoprazole Sodium (Protonix Ec Tab) 40 mg PO 0630 [facility] PRN Reason: Protocol Last Admin: 01/21/18 05:52 Dose: 40 mg Tramadol/Acetaminophen (Ultracet 37.5/325 Mg) 1 tab PO Q6H PRN; Protocol PRN Reason: Pain, moderate (4-7) Warfarin Sodium (Coumadin) 10 mg PO 1800 [facility] PRN Reason: Protocol Last Admin: 01/20/18 17:44 Dose: 10 mg Results - Vital Signs Recent Vital Signs: Last Vital Signs Temp 97.6 F 01/20/18 16:44 Pulse 76 01/21/18 08:36 Resp 18 01/20/18 16:44 BP 139/70 01/21/18 08:36 Pulse Ox 93 L 01/20/18 16:44 Attending/Attestation - Attestation I have personally seen and examined this patient.: Yes I have fully participated in the care of the patient.: Yes I have reviewed all pertinent clinical information: Yes
[2018-01-21] MEDS: Metoprolol Succinate 50 mg XL Tab PO SCH (08:36)
--- NOTE | 2018-01-21 20:51 | HP ---
Copied To: Aquilino Garcia MD Attending MD: Aquilino Garcia MD HISTORY OF PRESENT ILLNESS: The patient is 82 years old who initially came in with a right leg cellulitis with blisters, had lancing done, had gangrenous towards the terrazas, has been on IV antibiotics, was evaluated by Dr. Silver Dempsey and had angioplasty done, followed by a skin grafting on the dorsum of the foot and was transferred to TCU for further close monitoring and management. PAST MEDICAL HISTORY: Significant for: 1. Hypertension. 2. Active smoker. 3. Alcohol user. 4. History of right leg DVT, noncompliant with anticoagulant. ALLERGIES: HE IS NOT ALLERGIC TO ANY MEDICATION. MEDICATIONS AT HOME: He is supposed to be on Coumadin. He takes lisinopril. He is on metoprolol. He is on thiamine and Vytorin. SOCIAL HISTORY: He is active heavy smoker, 1 to 2-pack a day and he drinks alcohol on every day basis. He is single and lives by himself. PHYSICAL EXAMINATION: GENERAL: He is awake, alert, oriented, communicative. VITAL SIGNS: He is afebrile, pulse 73, respirations 16, blood pressure 137/69. LUNGS: Bilateral good airflow. No rhonchi or crackle. HEART: S1 and S2 audible. ABDOMEN: Soft, nontender. No rebound, no guarding. NEUROLOGIC: The patient is awake, alert, oriented, communicative. ASSESSMENT: 1. Right leg cellulitis, improved. 2. Right superficial femoral artery, anterior tibial and popliteal artery atherectomy and angioplasty. 3. Hypertension. 4. Hyperlipidemia. PLAN: We will continue the patient on current medications. Dr. Pham will follow the wound. Dressing will be opened tomorrow. We will restart on Coumadin. Follow up PT/INR in a.m. and encourage physical therapy. Aquilino Garcia MD
[2018-01-22] MEDS: Enoxaparin 60 mg Syringe SC SCH (06:17)
[2018-01-22] MEDS: Pantoprazole 40 mg EC Tab PO SCH (06:17)
[2018-01-22] MEDS: Metoprolol Succinate 50 mg XL Tab PO SCH (08:07)
[2018-01-22] MEDS: Oxycodone/Acetaminophen 5/325 mg Tab PO PRN ×2 (10:14→21:25)
--- NOTE | 2018-01-22 15:34 | CP.PCM.PN ---
<Devi Lackey - Last Filed: 01/22/18 15:32> Subjective - Date & Time of Evaluation Date of Evaluation: 01/22/18 Time of Evaluation: 15:32 - Subjective Subjective: Podiatry Progress Note for Dr. Pham 82 y/o male seen at bedside 4 days s/p right leg wound debridement with application of a graft. Patient is AAOx3 and NAD, resting comfortably in bed. Denies any acute overnight events. Denies of any pain today. Denies recent N/V/F /C/CP/SOB/D/posterior calf pain. Denies any further pedal complaints at this time. Objective - Vital Signs/Intake and Output Vital Signs (last 24 hours): Temp Pulse Resp BP Pulse Ox 97.3 F L 73 18 166/76 H 97 01/21/18 16:00 01/22/18 08:07 01/21/18 16:00 01/22/18 08:07 01/21/18 16:00 - Medications Medications: Current Medications Acetaminophen (Tylenol 325mg Tab) 650 mg PO Q4H PRN; Protocol PRN Reason: Pain, Mild (1-3) Atorvastatin Calcium (Lipitor) 20 mg PO DIN [facility] PRN Reason: Protocol Last Admin: 01/21/18 17:52 Dose: 20 mg Enoxaparin Sodium (Lovenox) 50 mg SC 0600 [facility] PRN Reason: Protocol Last Admin: 01/22/18 06:17 Dose: 50 mg Linezolid (Zyvox) 600 mg PO BID [facility] PRN Reason: Protocol Stop: 01/22/18 18:01 Last Admin: 01/22/18 10:11 Dose: 600 mg Metoprolol Succinate (Toprol Xl) 50 mg PO BRK [facility] PRN Reason: Protocol Last Admin: 01/22/18 08:07 Dose: 50 mg Oxycodone/Acetaminophen (Percocet 5/325 Mg Tab) 1 tab PO Q4H PRN; Protocol PRN Reason: Pain, moderate (4-7) Stop: 01/23/18 14:57 Last Admin: 01/22/18 10:14 Dose: 1 tab Oxycodone/Acetaminophen (Percocet 5/325 Mg Tab) 2 tab PO Q4H PRN; Protocol PRN Reason: Pain, severe (8-10) Stop: 01/23/18 15:05 Pantoprazole Sodium (Protonix Ec Tab) 40 mg PO 0630 [facility] PRN Reason: Protocol Last Admin: 01/22/18 06:17 Dose: 40 mg Tramadol/Acetaminophen (Ultracet 37.5/325 Mg) 1 tab PO Q6H PRN; Protocol PRN Reason: Pain, moderate (4-7) Warfarin Sodium (Coumadin) 10 mg PO 1800 [facility] PRN Reason: Protocol Last Admin: 01/21/18 17:52 Dose: 10 mg - Constitutional Appears: Well, Non-toxic, No Acute Distress - Extremities Exam Additional comments: Dressing to the RLE is clean, dry and intact. No strikethrough is noted - Neurological Exam Neurological Exam: Alert, Awake, Oriented x3 - Psychiatric Exam Psychiatric exam: Normal Affect, Normal Mood Assessment and Plan - Assessment and Plan (Free Text) Assessment: 82 y/o male seen at bedside 4 days s/p right leg wound debridement and application of graft Plan: Patient seen and evaluated Discussed with attending Dr. 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 MRI: No evidence of OM Right LE dressing - LEAVE INTACT - After the wound debridement procedure, the wound measured approx 14 cm x 6 cm x 0.7 cm. Patient currently has a graft on the right leg. Patient is stable from podiatry standpoint Upon discharge, follow up with Dr. Pham/Dr. Leach at the wound care center Podiatry will continue to follow while patient in house <Van Pham - Last Filed: 01/22/18 15:35> Objective - Vital Signs/Intake and Output Vital Signs (last 24 hours): Temp Pulse Resp BP Pulse Ox 97.3 F L 73 18 166/76 H 97 01/21/18 16:00 01/22/18 08:07 01/21/18 16:00 01/22/18 08:07 01/21/18 16:00 - Medications Medications: Current Medications Acetaminophen (Tylenol 325mg Tab) 650 mg PO Q4H PRN; Protocol PRN Reason: Pain, Mild (1-3) Atorvastatin Calcium (Lipitor) 20 mg PO DIN [facility] PRN Reason: Protocol Last Admin: 01/21/18 17:52 Dose: 20 mg Enoxaparin Sodium (Lovenox) 50 mg SC 0600 [facility] PRN Reason: Protocol Last Admin: 01/22/18 06:17 Dose: 50 mg Linezolid (Zyvox) 600 mg PO BID [facility] PRN Reason: Protocol Stop: 01/22/18 18:01 Last Admin: 01/22/18 10:11 Dose: 600 mg Metoprolol Succinate (Toprol Xl) 50 mg PO BRK [facility] PRN Reason: Protocol Last Admin: 01/22/18 08:07 Dose: 50 mg Oxycodone/Acetaminophen (Percocet 5/325 Mg Tab) 1 tab PO Q4H PRN; Protocol PRN Reason: Pain, moderate (4-7) Stop: 01/23/18 14:57 Last Admin: 01/22/18 10:14 Dose: 1 tab Oxycodone/Acetaminophen (Percocet 5/325 Mg Tab) 2 tab PO Q4H PRN; Protocol PRN Reason: Pain, severe (8-10) Stop: 01/23/18 15:05 Pantoprazole Sodium (Protonix Ec Tab) 40 mg PO 0630 [facility] PRN Reason: Protocol Last Admin: 01/22/18 06:17 Dose: 40 mg Tramadol/Acetaminophen (Ultracet 37.5/325 Mg) 1 tab PO Q6H PRN; Protocol PRN Reason: Pain, moderate (4-7) Warfarin Sodium (Coumadin) 10 mg PO 1800 [facility] PRN Reason: Protocol Last Admin: 01/21/18 17:52 Dose: 10 mg Attending/Attestation - Attestation I have personally seen and examined this patient.: Yes I have fully participated in the care of the patient.: Yes I have reviewed all pertinent clinical information, including history, physical exam and plan: Yes
--- NOTE | 2018-01-23 02:23 | PN ---
Copied To: Aquilino Garcia MD Attending MD: Aquilino Garcia MD DATE: 01/22/2018 SUBJECTIVE: The patient is 82 years old, seen and examined, lying in bed, seemed to be comfortable, came back from therapy. No fever, no chills, no nausea or vomiting, no diarrhea. PHYSICAL EXAMINATION VITAL SIGNS: He is afebrile, pulse 67, respirations 18, blood pressure 146/71. LUNGS: Bilateral good airflow. No rhonchi or crackle. HEART: S1 and S2 audible. ABDOMEN: Soft. Nontender. No rebound. No guarding. NEUROLOGICAL: The patient is awake, alert, oriented, communicative. ASSESSMENT: 1. Status post right foot skin graft. 2. Right leg deep venous thrombosis. 3. Status post right angioplasty for superficial femoral artery, posterior tibial and anterior tibial. 4. Hypertension. 5. Hyperlipidemia. 6. Active smoker. PLAN: We will discontinue his Zyvox and I will order for CBC, CMP and PT/INR for the morning and adjust his Coumadin dose. Aquilino Garcia MD
[2018-01-23] MEDS: Enoxaparin 60 mg Syringe SC SCH (05:35)
[2018-01-23] MEDS: Pantoprazole 40 mg EC Tab PO SCH (05:35)
[2018-01-23] MEDS: Metoprolol Succinate 50 mg XL Tab PO SCH (07:00)
[2018-01-23 07:19] LABS: BASO # 0.01 K/mm3 (0.0-2.0); BASO % 0.1 % (0.0-3.0); EOS # 0.2 (0.0-0.7); EOS % 3.3 % (1.5-5.0); GRAN # 5.09 (1.4-6.5); GRAN % 73.3 % (50.0-68.0); HEMOGLOBIN 9.3 g/dL (14.0-18.0); LYMPH # 1.1 (1.2-3.4); LYMPH % 15.8 % (22.0-35.0); MEAN CELL VOLUME 89.4 fl (80.0-105.0); MEAN CORPUSCULAR HGB CONC 33.6 g/dl (31.0-37.0); MEAN PLATELET VOLUME 9.4 fl (7.0-11.0); MONO # 0.5 (0.1-0.6); MONO % 7.5 % (1.0-6.0); RBC 3.1 10^6/uL (3.5-6.1); RED CELL DISTRIBUTION WIDTH 15.3 % (11.5-14.5)
[2018-01-23 07:40] LABS: PROTHROMBIN TIME 49.6 SECONDS (9.4-12.5)
[2018-01-23 07:41] LABS: ALB/GLOB RATIO 0.7 (1.1-1.8); ALBUMIN 3.2 g/dL (3.0-4.8); CALCIUM 8.8 mg/dL (8.4-10.5)
[2018-01-23 08:12] LABS: INR 4.19
--- NOTE | 2018-01-23 12:17 | PN ---
Copied To: Van Pham DPM Attending MD: Van Pham DPM DATE: 01/23/2018 SUBJECTIVE: An 82-year-old male, seen in TCU at bedside, status post right leg wound debridement with an application of skin graft 5 days ago. The patient is resting comfortably, has offered no new complaints. He denies any fever, chills, nausea or vomiting. He does not have any shortness of breath or posterior lower leg pain. He is reporting less pain in both lower legs. The patient's vital signs revealed temperature of 160/76, respiratory rate of 18, pulse rate of 67, temperature of 98.2. Laboratory findings reveal white count of 7, hemoglobin of 9.3, hematocrit of 27.7, platelet count of 128. OBJECTIVE: Removed the right lower leg dressing, which showed minimal strike through. There was noted to be intact graft placement with janeth holding graft in place with overlying Adaptic adhering well. There is no malodor. There is no purulence. There are no signs of acute bacterial infection. ASSESSMENT: An 82-year-old male with severe peripheral arterial disease to the right lower extremity. Seen status post right leg wound debridement and application of skin graft. PLAN: The patient was examined. Dressing was removed. Graft area was cleansed with normal sterile saline. Graft was intact and adhering well to the wound base. Applied sterile Adaptic and a dry sterile dressing. The patient was encouraged to perform physical therapy as tolerated in an effort to increase his lower extremity circulation. He was told that it is imperative that he follows up at the [facility] with me or Dr. Leach in an effort to heal his rather large and extensive wound in an effort to salvage his right lower leg from limb loss. The patient stated he agreed and would follow up once discharged. The patient will be seen and followed daily while in-house. Van Pham DPM
[2018-01-24] MEDS: Enoxaparin 60 mg Syringe SC SCH (05:46)
[2018-01-24] MEDS: Metoprolol Succinate 50 mg XL Tab PO SCH (08:16)
[2018-01-24 09:22] LABS: PROTHROMBIN TIME 49.6 SECONDS (9.4-12.5)
[2018-01-24 09:32] LABS: INR 4.17
[2018-01-24] MEDS: TraMADol/Apap 37.5/325 mg Tab PO PRN ×2 (13:47→20:33)
--- NOTE | 2018-01-24 14:00 | CP.PCM.PN ---
<Nikolas Duran - Last Filed: 01/24/18 14:12> Subjective - Date & Time of Evaluation Date of Evaluation: 01/24/18 Time of Evaluation: 13:59 - Subjective Subjective: Podiatry Progress Note for attending Dr. Pham 82 y/o male seen at bedside 6 days s/p right leg wound debridement with application of a graft. Patient is AAOx3 and NAD, resting comfortably in bed. Patient states that he has burning pain at the surgery site since yesterday . Patient denies any acute overnight events. Patient denies any overnight N/V /F/C or SOB. He denies any further pedal complaints at this time. Objective - Vital Signs/Intake and Output Vital Signs (last 24 hours): Temp Pulse Resp BP Pulse Ox 98.7 F 83 21 156/72 H 97 01/24/18 10:00 01/24/18 10:00 01/24/18 10:00 01/24/18 10:00 01/23/18 17:09 - Medications Medications: Current Medications Acetaminophen (Tylenol 325mg Tab) 650 mg PO Q4H PRN; Protocol PRN Reason: Pain, Mild (1-3) Atorvastatin Calcium (Lipitor) 20 mg PO DIN [facility] PRN Reason: Protocol Last Admin: 01/23/18 17:39 Dose: 20 mg Enoxaparin Sodium (Lovenox) 50 mg SC 0600 [facility] PRN Reason: Protocol Last Admin: 01/24/18 05:46 Dose: 50 mg Metoprolol Succinate (Toprol Xl) 50 mg PO BRK [facility] PRN Reason: Protocol Last Admin: 01/24/18 08:16 Dose: 50 mg Tramadol/Acetaminophen (Ultracet 37.5/325 Mg) 1 tab PO Q6H PRN; Protocol PRN Reason: Pain, moderate (4-7) Last Admin: 01/24/18 13:47 Dose: 1 tab - Labs Labs: 01/23/18 07:00 01/23/18 07:00 PT 49.6 SECONDS (9.4-12.5) H 01/24/18 09:00 INR 4.17 H* 01/24/18 09:00 - Constitutional Appears: Well, Non-toxic, No Acute Distress - Head Exam Head Exam: ATRAUMATIC, NORMOCEPHALIC - Extremities Exam Additional comments: Right LE focused exam: Vasc: DP/PT 2/4 . Skin temperature warm to cool from proximal to distal. Cap refill < 3 seconds to all digits. Moderate, non pitting edema noted to right leg. Neuro: gross and protective sensation grossly intact b/l Derm: An open wound at the surgical site of debridement and graft measure about 20cm X 4 cm X 0.3 cm. Covered by graft. The graft was intact in place. Sutures were intact. no malodor, Serous drainage noted and was striking through the dressing. No clinical signs of active infection. Minimal periwound erythema. MSK: POP at the periwound site. ROM WNL at all major joints. Muscle power intact 5/5 in all major muscle groups. No other gross deformities noted - Neurological Exam Neurological Exam: Alert, Awake, Oriented x3 - Psychiatric Exam Psychiatric exam: Normal Affect, Normal Mood Assessment and Plan - Assessment and Plan (Free Text) Assessment: 82 y/o male seen at bedside 6 days s/p right leg wound debridement and application of graft Plan: Patient seen and evaluated at the bedside Discussed with attending Dr. Pham Chart, labs and vitals reviewed; Afebrile, absent leukocytosis Arterial studies show severe arterial disease to RLE RLE MRI: No evidence of OM Wound dressed using Adaptic, DSD, ABD, Kerlix and Arnie bandage Wound culture ordered and sent to lab. Patient tolerated the dressing well Podiatry to continue following up patient while in house <Van Pham - Last Filed: 01/26/18 15:49> Objective - Vital Signs/Intake and Output Vital Signs (last 24 hours): Temp Pulse Resp BP Pulse Ox 98.1 F 75 16 139/70 93 L 01/26/18 10:00 01/26/18 10:00 01/26/18 10:00 01/26/18 10:00 01/26/18 10:00 - Medications Medications: Current Medications Acetaminophen (Tylenol 325mg Tab) 650 mg PO Q4H PRN; Protocol PRN Reason: Pain, Mild (1-3) Last Admin: 01/25/18 17:51 Dose: 650 mg Atorvastatin Calcium (Lipitor) 20 mg PO DIN [facility] PRN Reason: Protocol Last Admin: 01/25/18 17:48 Dose: 20 mg Metoprolol Succinate (Toprol Xl) 50 mg PO BRK [facility] PRN Reason: Protocol Last Admin: 01/26/18 07:51 Dose: 50 mg Tramadol/Acetaminophen (Ultracet 37.5/325 Mg) 1 tab PO Q6H PRN; Protocol PRN Reason: Pain, moderate (4-7) Last Admin: 01/26/18 09:35 Dose: 1 tab - Labs Labs: 01/23/18 07:00 01/23/18 07:00 PT 21.9 SECONDS (9.4-12.5) H 01/26/18 12:00 INR 1.88 01/26/18 12:00 Attending/Attestation - Attestation I have personally seen and examined this patient.: Yes I have fully participated in the care of the patient.: Yes I have reviewed all pertinent clinical information, including history, physical exam and plan: Yes
[2018-01-24 17:43] VITALS: RESP 16
--- NOTE | 2018-01-24 18:43 | PN ---
Copied To: Aquilino Garcia MD Attending MD: Aquilino Garcia MD DATE: 01/24/2018 SUBJECTIVE: The patient is an 82-year-old, seen and examined, lying in bed, seems to be comfortable. Has dressing changed. Had skin grafted on right terrazas. PHYSICAL EXAMINATION: VITAL SIGNS: The patient is afebrile, pulse 83, respirations 21, blood pressure 156/72. LUNGS: Bilateral good airflow. No rhonchi or crackle. HEART: S1 and S2 audible. ABDOMEN: Soft, nontender. No rebound, no guarding. NEUROLOGIC: The patient is awake, alert, oriented, communicative. LABORATORY DATA: His PT is 49.6, INR 4.17. Chemistry: Sodium 136, potassium 4.7, chloride 102, CO2 of 23, BUN 27, creatinine 1.6, blood sugar of 114. ASSESSMENT: 1. Right terrazas cellulitis followed by right terrazas gangrenous skin changes. 2. Status post right leg angioplasty. 3. Hypertension. 4. History of cirrhosis liver. 5. History of deep venous thrombosis. PLAN: Currently, the patient is off antibiotic. He is getting tramadol as needed. He is on DVT prophylaxis. Local wound care is being done by Podiatry Team. We will hold his Coumadin. I will reevaluate in a.m. Aquilino Garcia MD
[2018-01-25] MEDS: Enoxaparin 60 mg Syringe SC SCH (06:04)
[2018-01-25] MEDS: TraMADol/Apap 37.5/325 mg Tab PO PRN ×2 (06:10→21:39)
[2018-01-25] MEDS: Metoprolol Succinate 50 mg XL Tab PO SCH (07:58)
--- NOTE | 2018-01-25 09:05 | PN ---
Copied To: Aquilino Garcia MD Attending MD: Aquilino Garcia MD DATE: 01/23/2018 SUBJECTIVE: The patient is 82 years old, seen and examined, lying in bed, seems to be comfortable. Dressing opened. wound looks fine. PHYSICAL EXAMINATION VITAL SIGNS: He is afebrile, pulse 83, respirations 18, and blood pressure 103/60. LUNGS: Bilateral good airflow. No rhonchi or crackle. HEART: S1 and S2 audible. ABDOMEN: Soft, nontender. No rebound, no guarding. NEUROLOGIC: He is awake, alert, oriented, and communicative. EXTREMITIES: Moves all extremities. Right terrazas and the foot is in the dressing . LABORATORY DATA: WBC 7, hemoglobin 9.3, hematocrit 27, and platelets of 128. PT 49.6, INR 4.19. Chemistry: Sodium 136, potassium 4.7, chloride 102, CO2 of 23. BUN 27, creatinine 1.6. Blood sugar of 114. ASSESSMENT: 1. Right leg angioplasty. 2. Right foot status post skin grafting. 3. History of hypertension. 4. History of alcohol use. PLAN: We will continue him on DVT prophylaxis. He is on Lipitor. We will continue that. Continue him on metoprolol, analgesic as needed, and hold his Coumadin. We will follow up his PT and INR in a.m. Aquilino Garcia MD
--- NOTE | 2018-01-26 01:27 | PN ---
Copied To: Aquilino Garcia MD Attending MD: Aquilino Garcia MD DATE: 01/25/2018 SUBJECTIVE: The patient is 82 years old, seen and examined, lying in bed, refusing for physical therapy. He states he has lot of pain in his right leg. PHYSICAL EXAMINATION: GENERAL: He is awake, alert, oriented, communicative. VITAL SIGNS: He is afebrile, pulse 80, respirations 16, blood pressure 158/80. LUNGS: Bilateral good airflow. No rhonchi or crackle. HEART: S1 and S2 audible. ABDOMEN: Soft, nontender. No rebound. No guarding. NEUROLOGICAL: Patient is awake, alert, oriented, communicative. LABORATORY EXAM: No new lab available today. ASSESSMENT AND PLAN: Right terrazas cellulitis followed by gangrene, had angioplasty done and followed by skin grafting. Part of his wound is granulating and partly has a graft. Patient needs prolonged wound care. Given patient's previous history, he is not very compliant patient, I am seriously concerned about his wound care after discharge. Patient is insisting he wants to go home and he states he will follow up with wound care. So, we will discuss with patient's daughter and social insurance specialist and make disposition plan. Aquilino Garcia MD
[2018-01-26] MEDS: Enoxaparin 60 mg Syringe SC SCH (05:56)
[2018-01-26] MEDS: Metoprolol Succinate 50 mg XL Tab PO SCH (07:51)
[2018-01-26] MEDS: TraMADol/Apap 37.5/325 mg Tab PO PRN ×2 (09:35→21:18)
[2018-01-26 12:17] LABS: INR 1.88; PROTHROMBIN TIME 21.9 SECONDS (9.4-12.5)
[2018-01-26 16:32] VITALS: TEMP 97.5; O2SAT 90
--- NOTE | 2018-01-26 16:41 | PN ---
Copied To: Van Pham DPM Attending MD: Van Pham DPM DATE: 01/26/2018 SUBJECTIVE: An 82-year-old male seen at bedside status post extensive right leg wound debridement with an application of skin graft. The patient is resting comfortably and has no new complaints. He is still reporting some arterial pain in his right lower leg and is set for discharge tomorrow. I had a long discussion with Mr. Espitia on the extreme importance of him following up at the [facility] and allowing the visiting nurses to come to change his wounds in an effort to salvage and save his lower leg. The patient states that he understands and would comply. Vital signs revealed temperature of 98.1, blood pressure of 139/70, respiratory rate of 16, pulse rate of 75. Laboratory findings reveal white count of 7, hemoglobin of 9.3, hematocrit of 27.7, platelet count of 128. Most recent microbiology report reveals Serratia growth sensitive to Cipro p.o. OBJECTIVE: Weakly palpable pedal pulses noted bilaterally. Lower extremity skin temperature from proximal to distal is warm to cool. Capillary filling time is delayed on all the digits. There is a large extensive open wound, which has been grafted that measures approximately 20 cm x 4 cm x 0.03 cm and is irregularly shaped. The graft is intact and held in place with sutures. There is noted to be serous drainage. However, there is no malodor. There is no purulence. There are no active signs of acute bacterial infection. There are no active signs of cellulitis. ASSESSMENT: An 82-year-old male seen status post extensive right leg wound debridement with application of skin graft. PLAN: The patient was seen and evaluated at bedside. Surgical site graft placement was cleansed with normal sterile saline and application of sterile Adaptic, calcium alginate, sterile abdominal pad and Kerlix was applied to the right lower extremity. I had a long talk with Mr. Espitia about the extreme importance of him following up at the [facility] and allowing the visiting nurses to come to his house twice weekly to change his wound dressing. The patient was told he will be placed on oral antibiotics for 1 week. However, the antibiotics will not work if he drinks alcohol. He was told that if he want to leave the hospital and resumes smoking cigarettes, this will occlude his lower extremity vessels and he is at great risk of losing his right lower leg. The patient states he understood and would comply with all doctors' orders. The patient will be seen and followed up at the [facility] on Thursday and visiting nurses will come on and Thursday to change his wounds. Van Pham DPM
--- NOTE | 2018-01-26 23:55 | PN ---
Copied To: Aquilino Garcia MD Attending MD: Aquilino Garcia MD DATE: 01/26/2018 SUBJECTIVE: The patient is 82 years old, seen and examined, doing well. No nausea or vomiting. No diarrhea. Ambulating. PHYSICAL EXAMINATION: VITAL SIGNS: The patient is afebrile, pulse 63, respirations 16, blood pressure 127/61. LUNGS: Bilateral fair airflow. No rhonchi or crackle. HEART: S1 and S2 audible. ABDOMEN: Soft, nontender. No rebound. No guarding. NEUROLOGICAL: Patient is awake, alert, oriented, ambulatory, communicative. LABORATORY EXAM: His PT is 21.9, INR is 1.88. ASSESSMENT: 1. Right leg cellulitis, status post gangrenous skin changes, status post skin grafting. 2. Hypertension. 3. Hyperlipidemia. 4. History of alcohol abuse. 5. The patient is growing Serratia marcescens from his wound. PLAN: He will be started on Cipro 250 b.i.d. We will give him 6 mg of Coumadin today. Arrangement has been made for wound care at home. Dr. Pham will follow up the patient next Thursday and follow up his PT/INR in the a.m. Aquilino Gracia MD
[2018-01-27] MEDS: Metoprolol Succinate 50 mg XL Tab PO SCH (07:51)
[2018-01-27 07:53] VITALS: BP 125/65; PULSE 80
[2018-01-27 11:02] LABS: INR 1.33; PROTHROMBIN TIME 15.4 SECONDS (9.4-12.5)
--- NOTE | 2018-01-28 13:28 | DS ---
Copied To: Aquilino Garcia MD Attending MD: Aquilino Garcia MD HISTORY OF PRESENT ILLNESS: The patient is an 82-year-old, who came in with right leg swelling and blister. The patient had DVT earlier this year. He was discharged on Coumadin, but the patient is very noncompliant. 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 They were lanced by Podiatry team and Wound Care team and the patient developed gangrene on that site. He had vascular study done showed significant . Lower extremity MRI was done and showed no evidence of osteomyelitis; however, he had angioplasty of superficial femoral artery. After that, the patient was taken to OR and had skin grafted and was readmitted in TCU for wound care and further management, did well. PHYSICAL EXAMINATION: VITAL SIGNS: He is afebrile, pulse 80, respirations 16, blood pressure 125/65. LUNGS: Bilateral good airflow. No rhonchi or crackles. HEART: S1 and S2, audible. ABDOMEN: Soft and nontender. No rebound. No guarding. NEUROLOGIC: He is awake, alert, oriented, and communicative. LABORATORY DATA: Today's PT is 15.4 and INR 1.33. ASSESSMENT: 1. Right terrazas cellulitis followed by gangrenous changes and had right superficial femoral artery angioplasty. 2. Status post right terrazas grafting. 3. Hypertension. 4. History of alcohol abuse. PLAN: So, plan is the patient is being discharged. He will follow up with doctor. He was given prescription of Coumadin. His culture found right terrazas positive Serratia sensitive to Cipro. So, he was given 250 twice a day. Coumadin 5 mg daily. He will follow up with Dr. Pham on Thursday and have wound care done and he will follow up with me to check his PT/INR and he will continue on his other medications. Aquilino Garcia MD
== END 2018-01-27 13:28 | disposition home health service (06) | DRG 603 ==
LOC: TRCU 14:28
PROVIDERS: ADMIT Internal Medicine; ATTEND Internal Medicine
PROC: F08Z4FZ Home Management Treatment using Assistive, Adaptive, Supportive or Protective Equipment (ICD-10-PCS; 2018-01-22)
PROC: F07Z9FZ Gait Training/Functional Ambulation Treatment using Assistive, Adaptive, Supportive or Protective Equipment (ICD-10-PCS; principal; 2018-01-23)
PROC: F07Z5FZ Bed Mobility Treatment using Assistive, Adaptive, Supportive or Protective Equipment (ICD-10-PCS; 2018-01-23)
PROC: F07L6YZ Therapeutic Exercise Treatment of Musculoskeletal System - Lower Back / Lower Extremity using Other Equipment (ICD-10-PCS; 2018-01-23)
DX: L03.115 Cellulitis of right lower limb (principal); I96 Gangrene, not elsewhere classified; Z48.89 Encounter for other specified surgical aftercare; I73.9 Peripheral vascular disease, unspecified; I11.0 Hypertensive heart disease with heart failure; I50.9 Heart failure, unspecified; E78.00 Pure hypercholesterolemia, unspecified; E78.5 Hyperlipidemia, unspecified; J44.9 Chronic obstructive pulmonary disease, unspecified; F17.200 Nicotine dependence, unspecified, uncomplicated; I87.009 Postthrombotic syndrome without complications of unspecified extremity; K21.9 Gastro-esophageal reflux disease without esophagitis; K74.60 Unspecified cirrhosis of liver; Z79.01 Long term (current) use of anticoagulants; Z91.14 Patient's other noncompliance with medication regimen; Z86.718 Personal history of other venous thrombosis and embolism

== ENCOUNTER 2018-02-11 12:31 | Inpatient (IN) | payer MEDICARE ==
--- NOTE | 2018-02-11 13:07 | ED PDOC ---
Arrival/HPI - General Chief Complaint: Abnormal Labs Time Seen by Provider: 02/11/18 12:38 Historian: Patient - History of Present Illness Narrative History of Present Illness (Text): 02/11/18 12:56 82 year old male, whose past medical history includes hypertension, COPD, gastritis and history of DVT (04/2017 - on coumadin), presents to the emergency department sent in by Dr. Garcia for low hemoglobin. Patient went to Dr. Garcia's office 2 days ago for a routine check up and had blood work done. Patient then received a call from Dr. Garcia who told patient to go to the hospital for a transfusion because he has anemia. He is not a smoker or drinker. Patient reports generalized weakness, fatigue, and black stool for the last 1-2 days, but denies any fever, chills, chest pain, shortness of breath, nausea, vomiting, diarrhea, urinary symptoms, back pain, neck pain, headache, dizziness, or any other complaints. PMD: Dr. Garcia Symptom Onset: Gradual Symptom Course: Unchanged Activities at Onset: Light Context: Home Past Medical History - Provider Review Nursing Documentation Reviewed: Yes - Infectious Disease Hx of Infectious Diseases: None - Tetanus Immunization Tetanus Immunization: Unknown - Cardiac Hx Cardiac Disorders: Yes (Femoral angiogram 01-15-18) Hx Congestive Heart Failure: Yes Hx Hypertension: Yes - Pulmonary Hx Chronic Obstructive Pulmonary Disease (COPD): Yes - Neurological Hx Paralysis: No - HEENT Hx HEENT Disorder: Yes Hx Cataracts: Yes - Renal Hx Renal Disorder: No - Endocrine/Metabolic Hx Endocrine Disorders: No - Hematological/Oncological Hx Blood Transfusions: No - Integumentary Hx Dermatological Disorder: Yes Other/Comment: 01-04-18 PROGRESSIVELY WORSENING RIGHT LEG CELLULITIS.WITH LARGE BLISTER FORMATION,MEDIUM AMOUNT OF SEROUS DRAINAGE.PAIN.ERYTHEMA.STARTED APR 06. 01-15-18 POST FEMORAL ANGIOGRAM. LANCED LARGE BLISTER TO RIGHT GONZALES.+ NECROTIC TISSUE.DRY.LESS PAIN. - Musculoskeletal/Rheumatological Hx Arthritis: Yes - Gastrointestinal Hx Gastrointestinal Disorders: Yes (DIVERTICULITIS,GERD,GASTRITIS,POOR APPETITE) - Genitourinary/Gynecological Hx Genitourinary Disorders: No Hx Reproductive Disorders: Yes (SCRAPING DONE ON PROSTATE) - Psychiatric Hx Emotional Abuse: No Hx Physical Abuse: No Hx Substance Use: No - Past Surgical History Past Surgical History: No Previous - Anesthesia Hx Anesthesia Reactions: No Hx Malignant Hyperthermia: No - Suicidal Assessment Feels Threatened In Home Enviroment: No Family/Social History - Physician Review Nursing Documentation Reviewed: Yes Family/Social History: No Known Family HX Smoking Status: Current Some Days Smoker Hx Alcohol Use: Yes (2 SHOTS DAILY VODKA) Hx Substance Use: No Hx Substance Use Treatment: No Allergies/Home Meds Allergies/Adverse Reactions: Allergies No Known Allergies Allergy (Verified 01/15/18 13:25) Home Medications: Home Meds Medication Instructions Recorded Confirmed Omeprazole 40 mg PO DAILY 01/04/18 02/11/18 Atorvastatin [Lipitor] 10 mg PO DIN 02/11/18 02/11/18 Lisinopril [Zestril] 10 mg PO DAILY 02/11/18 02/11/18 Warfarin [Coumadin] 5 mg PO DAILY 02/11/18 02/11/18 Review of Systems - Physician Review All systems were reviewed & negative as marked: Yes - Review of Systems Constitutional: Fatigue. absent: Fevers, Other (Chills) Respiratory: absent: SOB Cardiovascular: absent: Chest Pain Gastrointestinal: Stool Changes (Black stool). absent: Diarrhea, Nausea, Vomiting Genitourinary Male: absent: Dysuria, Frequency, Hematuria Musculoskeletal: absent: Back Pain, Neck Pain Neurological: Other (Generalized weakness). absent: Headache, Dizziness Physical Exam Vital Signs Reviewed: Yes Vital Signs Temp Pulse Resp BP Pulse Ox 02/11/18 15:05 98.1 F 02/11/18 14:56 98 F 85 19 121/53 L 100 02/11/18 13:23 97.9 F 90 19 121/59 L 100 02/11/18 13:13 94 H 18 108/75 98 02/11/18 12:38 98.4 F 100 H 18 106/70 100 Temperature: Afebrile Blood Pressure: Normal Pulse: Regular Respiratory Rate: Normal Appearance: Positive for: Non-Toxic, Comfortable, Other (Thin and chronicallyill appearing) Pain Distress: None Mental Status: Positive for: Alert and Oriented X 3 - Systems Exam Head: Present: Atraumatic, Normocephalic Pupils: Present: PERRL Extroacular Muscles: Present: EOMI Conjunctiva: Present: Normal Mouth: Present: Moist Mucous Membranes Neck: Present: Normal Range of Motion Respiratory/Chest: Present: Clear to Auscultation, Good Air Exchange. No: Respiratory Distress, Accessory Muscle Use Cardiovascular: Present: Regular Rate and Rhythm, Normal S1, S2. No: Murmurs Abdomen: No: Tenderness, Distention, Peritoneal Signs Rectal: Present: Other (Guaiac positive ) Back: Present: Normal Inspection Upper Extremity: Present: Normal Inspection. No: Cyanosis, Edema Lower Extremity: Present: Normal Inspection, Other (Unna's boot on tright lower extremity. Does not want to have it removed. For an ulcer placed by Heel Seat Sander yesterday.). No: Edema Neurological: Present: GCS=15, CN II-XII Intact, Speech Normal Skin: Present: Warm, Dry, Normal Color. No: Rashes Psychiatric: Present: Alert, Oriented x 3, Normal Insight, Normal Concentration Medical Decision Making ED Course and Treatment: 02/11/18 12:56 Impression: 82 year old male sent in by PMD for transfusion. Patient has anemia and is complaining of generalized weakness, fatigue, and black stool for the last 1-2 days. Plan: -- Labs -- EKG -- Chest X-ray -- Protonix Inj -- Reassess and disposition Prior Visits: Notes and results from previous visits were reviewed. Progress Notes: 02/11/18 14:20 EKG shows normal sinus rhythm rate approximately 95 with a right bundle branch block and no acute ST or T-wave changes PROCEDURE: Chest X-ray Dictator : Werner Edmonds MD Report Date : 02/11/2018 14:07:11 IMPRESSION: No active disease. 02/11/18 14:[address] Garcia who is aware and agrees with the plan. Accepts patient into her service. - Lab Interpretations Lab Results: 02/11/18 12:50 02/11/18 12:50 Lab Results 02/11/18 12:50: Blood Type A POSITIVE, Antibody Screen Negative, Crossmatch See Detail, BBK History Checked Patient has bt 02/11/18 12:50: Sodium 139, Potassium 4.5, Chloride 112 H, Carbon Dioxide 20 L, Anion Gap 12, BUN 31 H, Creatinine 2.3 H, Est GFR ( Amer) 33, Est GFR ( Non-Af Amer) 27, Random Glucose 117 H, Calcium 8.6, Total Bilirubin 0.3, AST 28 , ALT 20, Alkaline Phosphatase 123, Lactate Dehydrogenase 423, Total Creatine Kinase 40, Troponin I < 0.01 D, Total Protein 7.2, Albumin 3.1, Globulin 4.1, Albumin/Globulin Ratio 0.7 L, Lipase 40 02/11/18 12:50: PT 74.2 H, INR 6.22 H*, APTT 50.0 H 02/11/18 12:50: WBC 8.0, RBC 2.06 L, Hgb 6.1 L* D, Hct 19.0 L*, MCV 92.2, MCH 29.6, MCHC 32.1, RDW 16.8 H, Plt Count 205, MPV 8.5, Gran % 58.5, Lymph % (Auto ) 25.7, [place] % (Auto) 9.0 H, Eos % (Auto) 6.5 H, Baso % (Auto) 0.3, Gran # 4.67 , Lymph # (Auto) 2.1, [place] # (Auto) 0.7 H, Eos # (Auto) 0.5, Baso # (Auto) 0.02 I have reviewed the lab results: Yes - RAD Interpretation Radiology Orders: 02/11/18 12:50 CHEST PORTABLE [RAD] Stat Chest one view is read by the radiologist shows no acute findings. Lead Pastor: Radiologist - EKG Interpretation Interpreted by ED Physician: Yes Type: 12 lead EKG - Medication Orders Current Medication Orders: Atorvastatin Calcium (Lipitor) 10 mg PO DIN [facility] Lisinopril (Zestril) 10 mg PO DAILY [facility] Pantoprazole Sodium (Protonix Ec Tab) 40 mg PO 0630 [facility] Discontinued Medications Phytonadione 10 mg/ Sodium (Chloride) 51 mls @ 100 mls/hr IV ONCE ONE Stop: 02/11/18 14:05 Last Admin: 02/11/18 13:58 Dose: 100 mls/hr eMAR Start Stop Document 02/11/18 13:58 GMI (Rec: 02/11/18 13:59 [id number] Intravenous Solution Start Date 02/11/18 Start Time 13:58 End Date 02/11/18 End time 14:30 Total Infusion Time 32 Pantoprazole Sodium (Protonix Inj) 40 mg IVP ONCE STA Stop: 02/11/18 12:54 Last Admin: 02/11/18 13:30 Dose: 40 mg IVP Administration Document 02/11/18 13:30 GMI (Rec: 02/11/18 13:30 [facility]-[id number]) Charges for Administration # of IVP Administrations 1 - Scribe Statement The provider has reviewed the documentation as recorded by the Ángelibalon Weinstein Provider Scribe Attestation: All medical record entries made by the Ángelibalon were at my direction and personally dictated by me. I have reviewed the chart and agree that the record accurately reflects my personal performance of the history, physical exam, medical decision making, and the department course for this patient. I have also personally directed, reviewed, and agree with the discharge instructions and disposition. Disposition/Present on Arrival - Present on Arrival Any Indicators Present on Arrival: No History of DVT/PE: No History of Uncontrolled Diabetes: No Urinary Catheter: No History of Decub. Ulcer: No History Surgical Site Infection Following: None - Disposition Have Diagnosis and Disposition been Completed?: Yes Diagnosis: Anemia, Gastrointestinal hemorrhage, Coagulopathy Disposition: HOSPITALIZED Disposition Time: 13:48 Patient Plan: Admission, Telemetry Patient Problems: Current Active Problems Problem Status Onset Anemia Acute Coagulopathy Acute Gastrointestinal hemorrhage Acute Condition: SERIOUS
[2018-02-11 13:19] LABS: BASO # 0.02 K/mm3 (0.0-2.0); BASO % 0.3 % (0.0-3.0); EOS # 0.5 (0.0-0.7); EOS % 6.5 % (1.5-5.0); GRAN # 4.67 (1.4-6.5); GRAN % 58.5 % (50.0-68.0); LYMPH # 2.1 (1.2-3.4); LYMPH % 25.7 % (22.0-35.0); MEAN CELL VOLUME 92.2 fl (80.0-105.0); MEAN CORPUSCULAR HEMOGLOBIN 29.6 pg (25.0-35.0); MEAN CORPUSCULAR HGB CONC 32.1 g/dl (31.0-37.0); MEAN PLATELET VOLUME 8.5 fl (7.0-11.0); MONO # 0.7 (0.1-0.6); RBC 2.06 10^6/uL (3.5-6.1); RED CELL DISTRIBUTION WIDTH 16.8 % (11.5-14.5)
[2018-02-11 13:23] LABS: HEMOGLOBIN 6.1 g/dL (14.0-18.0)
[2018-02-11 13:28] LABS: PROTHROMBIN TIME 74.2 SECONDS (9.4-12.5)
[2018-02-11 13:35] LABS: INR 6.22
[2018-02-11] MEDS ORDERED: Phytonadione 10 MG in Sodium Chloride 0.9% 50 ML IV ONE (13:35)
[2018-02-11 13:36] LABS: TROPONIN I < 0.01 ng/mL
[2018-02-11 13:40] LABS: ALB/GLOB RATIO 0.7 (1.1-1.8); ALBUMIN 3.1 g/dL (3.0-4.8); ALT/SGPT 20 U/L (7-56); AST/SGOT 28 U/L (17-59); BLOOD UREA NITROGEN 31 mg/dL (7-21); CALCIUM 8.6 mg/dL (8.4-10.5); GFR NON-AFRICAN AMERICAN 27; LIPASE 40 U/L (23-300)
[2018-02-11] MEDS ORDERED: Phytonadione 10 mg/ml Inj (Adult) ONE (13:58)
--- NOTE | 2018-02-11 14:08 | RAD ---
Date of service: 02/11/2018 HISTORY: gib COMPARISON: 01/15/2018 FINDINGS: LUNGS: No active pulmonary disease. PLEURA: No significant pleural effusion identified, no pneumothorax apparent. CARDIOVASCULAR: Normal. OSSEOUS STRUCTURES: No significant abnormalities. VISUALIZED UPPER ABDOMEN: Normal. OTHER FINDINGS: None. IMPRESSION: No active disease.
--- NOTE | 2018-02-11 16:01 | CARD ---
APPROVED REPORT Date of service: 02/11/2018 EKG Measurement Heart [id number] <Conclusion> Normal sinus rhythm Right bundle branch block Abnormal ECG
[2018-02-11 19:50] VITALS: BMI 21.4
[2018-02-11] MEDS ORDERED: Pneumococcal 23-Valent Vaccine IM ONE (19:50)
--- NOTE | 2018-02-12 02:33 | HP ---
HISTORY OF PRESENT ILLNESS: The patient is 82 years old, was seen and examined in the office for his regular checkup. For his regular checkup, his blood work was drawn for his Coumadin level and also for CBC and I got the results this morning. His hemoglobin was 7.1. I contacted the patient and advised him to come to the emergency room. He denies any rectal bleeding. No history of nausea or vomiting. No epigastric pain. The patient was recently admitted with his right leg wound end up having angioplasty because of severe peripheral vascular disease. When the patient was admitted in December, he has had distal right SFA, popliteal and anterior tibial and right iliac occlusive disease. He had angioplasty done by Dr. Silver Dempsey followed by wound care by Dr. Pham and had skin grafting done, is being followed by Dr. Pham for his wound care. The patient does admit having drinking heavy up until his last admission, has been smoking, although he was told in multiple occasions to quit smoking and cut down his drinking. PAST MEDICAL HISTORY: Significant for: 1. Hypertension. 2. COPD. 3. Renal insufficiency. ALLERGIES: HE IS NOT ALLERGIC TO ANY MEDICATIONS. MEDICATIONS AT HOME: He is on: 1. Omeprazole 40 mg daily. 2. Coumadin 5 mg daily. 3. Lisinopril 10 mg daily. 4. Atorvastatin 10 mg daily. 5. Aspirin 81 daily. SOCIAL HISTORY: He used to be heavy smoker and drinker, but has recently quit. PHYSICAL EXAMINATION GENERAL: He is awake, alert, oriented, communicative, looks pale. VITAL SIGNS: He is afebrile, pulse 69, respirations 19, blood pressure ____. LUNGS: Bilateral good airflow. No rhonchi or crackle. HEART: S1, S2 audible. ABDOMEN: Soft, nontender. No rebound. No guarding. NEUROLOGICAL: The patient is awake, alert, oriented, able to communicate. EXTREMITIES: The right leg is in the dressing. LABORATORY EXAM: WBC is 8, hemoglobin 6.1, hematocrit 19, platelets 205. PT 74.2. INR 6.22. Chemistry: Sodium 139, potassium 4.5, chloride 112, CO2 of 20, BUN 31, creatinine 2.3. Blood sugar of 117. ASSESSMENT: 1. Symptomatic anemia. 2. Lower gastrointestinal bleed. 3. History of alcohol abuse. 4. Status post right leg necrotic cellulitis that was debrided and followed by a skin grafting. 5. Peripheral vascular disease status post superficial femoral artery angioplasty. PLAN: The patient will receive 2 bag RBCs, stool Hemoccult seems to be positive and Dr. Castañeda is consulted, probably he is going to need endoscopy and may be colonoscopy later on. He was given 1 dose of vitamin K. We will discontinue his lisinopril since his kidney function seems to be worsening. I will put him on Norvasc. We will follow up his CBC and CMP in a.m. Aquilino Garcia MD
[2018-02-12] MEDS ORDERED: Pantoprazole 40 mg EC Tab PO SCH (06:30)
[2018-02-12 07:15] LABS: BASO # 0.03 K/mm3 (0.0-2.0); BASO % 0.4 % (0.0-3.0); EOS # 0.7 (0.0-0.7); EOS % 8.9 % (1.5-5.0); GRAN # 4.77 (1.4-6.5); HEMOGLOBIN 9.9 g/dL (14.0-18.0); LYMPH # 1.9 (1.2-3.4); LYMPH % 22.7 % (22.0-35.0); MEAN CELL VOLUME 87.8 fl (80.0-105.0); MEAN CORPUSCULAR HEMOGLOBIN 29.4 pg (25.0-35.0); MEAN CORPUSCULAR HGB CONC 33.4 g/dl (31.0-37.0); MEAN PLATELET VOLUME 9.1 fl (7.0-11.0); MONO # 0.8 (0.1-0.6); RBC 3.37 10^6/uL (3.5-6.1); RED CELL DISTRIBUTION WIDTH 16.1 % (11.5-14.5); WHITE BLOOD COUNT 8.2 10^3/ul (4.5-11.0)
[2018-02-12 07:21] LABS: INR 1.43; PROTHROMBIN TIME 16.6 SECONDS (9.4-12.5)
[2018-02-12 07:36] LABS: ALB/GLOB RATIO 0.7 (1.1-1.8); ALBUMIN 2.6 g/dL (3.0-4.8); CALCIUM 8.4 mg/dL (8.4-10.5)
--- NOTE | 2018-02-12 08:54 | CP.PCM.CON ---
<ReillyjuliatrevorRod - Last Filed: 02/12/18 11:10> History of Present Illness - History of Present Illness History of Present Illness: GI Fellow PGY4, consult note, Neil Espitia is an 82yo M with history of colon adenomas (2011), PVD and on OAC presenting with significant anemia. Patient was asked to come to ED as Hb very low, 6.6. INR was found to be elevated >6. He received 2 units RBCs and Vit.K. Vitals have been stable. Patient denies obvious bleeding (GI or ). No history of GI bleeds. He is taking warfarin for his leg he states. Denies vomiting, abdominal pain, diarrhea , change in BMs. Patient admits consistent weight loss, he states 5lbs in the last year. Importantly, patient had last colonoscopy in 2011 which showed tubular adenomas of the descending colon. He has not followed up with GI since. I discussed possible need for EGD/CSPY. Patient currently refusing. Requesting to speak with Dr. Garcia, PMD. PMHx: As above PSHx: Lower extremity vascular FMHx: Denies SocHx: hx of alcohol use. 50+ pack yrs. 12pt ROS neg except for above. Past Patient History - Infectious Disease Hx of Infectious Diseases: None - Tetanus Immunizations Tetanus Immunization: Unknown - Past Social History Smoking Status: cigars? - CARDIAC Hx Cardiac Disorders: Yes (Femoral angiogram 01-15-18) Hx Congestive Heart Failure: Yes Hx Hypercholesterolemia: Yes Hx Hypertension: Yes Hx Peripheral Edema: Yes (rle +2 edema) Hx Peripheral Vascular Disease: Yes (circulation problem) Other/Comment: dvt 04/2017 - PULMONARY Hx Chronic Obstructive Pulmonary Disease (COPD): Yes - NEUROLOGICAL Hx Neurological Disorder: No - HEENT Hx HEENT Problems: Yes Hx Cataracts: Yes - RENAL Hx Chronic Kidney Disease: No - ENDOCRINE/METABOLIC Hx Endocrine Disorders: No - HEMATOLOGICAL/ONCOLOGICAL Hx Blood Disorders: Yes Hx Anemia: Yes - INTEGUMENTARY Hx Dermatological Problems: Yes Other/Comment: 01-04-18 PROGRESSIVELY WORSENING RIGHT LEG CELLULITIS.WITH LARGE BLISTER FORMATION,MEDIUM AMOUNT OF SEROUS DRAINAGE.PAIN.ERYTHEMA.STARTED APR 06. 01-15-18 POST FEMORAL ANGIOGRAM. LANCED LARGE BLISTER TO RIGHT GONZALES.+ NECROTIC TISSUE.DRY.LESS PAIN. pt refusing to answer questions 02/11/18 unaboot r lower extremity intact pt does not want it removed +2 edema. hx r leg cellulitis w/blisters. - MUSCULOSKELETAL/RHEUMATOLOGICAL Hx Musculoskeletal Disorders: Yes Hx Arthritis: Yes Hx Falls: No Hx Unsteady Gait: Yes (cane at bedside) - GASTROINTESTINAL Hx Gastrointestinal Disorders: Yes (DIVERTICULITIS,GERD,GASTRITIS,POOR APPETITE) Other/Comment: poor appetite - GENITOURINARY/GYNECOLOGICAL Hx Genitourinary Disorders: Yes Hx Prostate Problems: Yes (scraping done) - PSYCHIATRIC Hx Emotional Abuse: No Hx Physical Abuse: No Hx Substance Use: No Other/Comment: hx 2 shots vodka daily, sneaks cigars as per past documentation - SURGICAL HISTORY Hx Surgeries: Yes - ANESTHESIA Hx Anesthesia Reactions: No Hx Malignant Hyperthermia: No Meds Allergies/Adverse Reactions: Allergies Allergy/AdvReac Type Severity Reaction Status Date / Time No Known Allergies Allergy Verified 01/15/18 13:25 - Medications Medications: Current Medications Amlodipine Besylate (Norvasc) 10 mg PO DAILY [facility] Last Admin: 02/11/18 17:37 Dose: 10 mg Atorvastatin Calcium (Lipitor) 10 mg PO DIN [facility] Last Admin: 02/11/18 17:37 Dose: 10 mg Clonidine HCl (Catapres) 0.1 mg PO Q6H PRN PRN Reason: Systolic Blood Pressure Pantoprazole Sodium (Protonix Ec Tab) 40 mg PO 0630 [facility] Last Admin: 02/12/18 06:09 Dose: 40 mg Physical Exam - Constitutional Appears: No Acute Distress, Cachectic, Chronically Ill - Head Exam Head Exam: NORMAL INSPECTION - Eye Exam Eye Exam: Normal appearance - ENT Exam ENT Exam: Mucous Membranes Moist - Respiratory Exam Respiratory Exam: Clear to Auscultation Bilateral, NORMAL BREATHING PATTERN - Cardiovascular Exam Cardiovascular Exam: Irregular Rhythm, +S1, +S2 - GI/Abdominal Exam GI & Abdominal Exam: Normal Bowel Sounds, Soft. absent: Distended, Tenderness - Rectal Exam Rectal Exam: Bloody Stool Additional comments: No obvious mass - Extremities Exam Extremities exam: Negative for: normal inspection - Neurological Exam Neurological exam: Alert, CN II-XII Intact, Oriented x3 - Psychiatric Exam Psychiatric exam: Normal Mood - Skin Skin Exam: Dry, Normal Color Results - Vital Signs Recent Vital Signs: Last Vital Signs Temp 98.4 F 02/12/18 00:31 Pulse 80 09/14/18 01:36 Resp 19 02/12/18 00:31 BP 151/80 H 02/12/18 00:31 Pulse Ox 99 02/12/18 00:01 - Labs Result Diagrams: 02/12/18 07:00 02/12/18 06:30 Labs: Laboratory Results - last 24 hr 02/12/18 02/12/18 02/12/18 06:30 06:30 07:00 WBC 8.2 RBC 3.37 L Hgb 9.9 L D Hct 29.6 L MCV 87.8 D MCH 29.4 MCHC 33.4 RDW 16.1 H Plt Count 189 MPV 9.1 Gran % 58.0 Lymph % (Auto) 22.7 [place] % (Auto) 10.0 H Eos % (Auto) 8.9 H Baso % (Auto) 0.4 Gran # 4.77 Lymph # (Auto) 1.9 [place] # (Auto) 0.8 H Eos # (Auto) 0.7 Baso # (Auto) 0.03 PT 16.6 H INR 1.43 Sodium 139 Potassium 5.1 H Chloride 112 H Carbon Dioxide 19 L Anion Gap 13 BUN 27 H Creatinine 2.0 H Est GFR ( Amer) 39 Est GFR (Non-Af Amer) 32 Random Glucose 83 Calcium 8.4 Total Bilirubin 0.6 AST 23 ALT 21 Alkaline Phosphatase 119 Total Protein 6.3 Albumin 2.6 L Globulin 3.7 Albumin/Globulin Ratio 0.7 L Assessment & Plan - Assessment and Plan (Free Text) Assessment: 82M with hx of tubular adenomas (2011), supratherapeutic warfarin presenting with anemia and + rectal exam for blood. #Acute blood loss anemia due to elevated INR and GI bleed - s/p 2u pRBCs #Supratherapeutic INR - s/p vit k, resolved #Weight loss #Malnourished #PVD #Irregular heart rhythm PLAN: - Concern for colon source in setting of previous adenoma, weight loss. - NPO - EGD today. Patient discussed with PMD, and agreeable. - Monitor Hb, transfuse for Hb less than 7. - He will need colonoscopy, likely Thursday. Prep Thursday. - PPI - Date & Time Date: 02/12/18 Time: 11:08 <Maddy,Kovil V - Last Filed: 02/12/18 23:22> Meds - Medications Medications: Current Medications Amlodipine Besylate (Norvasc) 10 mg PO DAILY [facility] Last Admin: 02/12/18 09:47 Dose: 10 mg Atorvastatin Calcium (Lipitor) 10 mg PO DIN [facility] Last Admin: 02/12/18 18:50 Dose: 10 mg Clonidine HCl (Catapres) 0.1 mg PO Q6H PRN PRN Reason: Systolic Blood Pressure Pantoprazole Sodium (Protonix Inj) 40 mg IVP Q12 [facility] Last Admin: 02/12/18 22:35 Dose: 40 mg Results - Vital Signs Recent Vital Signs: Last Vital Signs Temp 98.4 F 02/12/18 18:00 Pulse 71 02/12/18 18:00 Resp 18 02/12/18 18:00 BP 136/60 02/12/18 18:00 Pulse Ox 99 02/12/18 18:00 - Labs Result Diagrams: 02/12/18 12:50 02/12/18 06:30 Labs: Laboratory Results - last 24 hr 02/12/18 02/12/18 02/12/18 06:30 06:30 07:00 WBC 8.2 RBC 3.37 L Hgb 9.9 L D Hct 29.6 L MCV 87.8 D MCH 29.4 MCHC 33.4 RDW 16.1 H Plt Count 189 MPV 9.1 Gran % 58.0 Lymph % (Auto) 22.7 [place] % (Auto) 10.0 H Eos % (Auto) 8.9 H Baso % (Auto) 0.4 Gran # 4.77 Lymph # (Auto) 1.9 [place] # (Auto) 0.8 H Eos # (Auto) 0.7 Baso # (Auto) 0.03 PT 16.6 H INR 1.43 Sodium 139 Potassium 5.1 H Chloride 112 H Carbon Dioxide 19 L Anion Gap 13 BUN 27 H Creatinine 2.0 H Est GFR ( Amer) 39 Est GFR (Non-Af Amer) 32 Random Glucose 83 Calcium 8.4 Total Bilirubin 0.6 AST 23 ALT 21 Alkaline Phosphatase 119 Total Protein 6.3 Albumin 2.6 L Globulin 3.7 Albumin/Globulin Ratio 0.7 L 02/12/18 12:50 WBC 8.0 RBC 3.53 Hgb 10.4 L Hct 30.9 L MCV 87.5 MCH 29.5 MCHC 33.7 RDW 16.3 H Plt Count 149 MPV 8.3 Gran % Lymph % (Auto) [place] % (Auto) Eos % (Auto) Baso % (Auto) Gran # Lymph # (Auto) [place] # (Auto) Eos # (Auto) Baso # (Auto) PT INR Sodium Potassium Chloride Carbon Dioxide Anion Gap BUN Creatinine Est GFR ( Amer) Est GFR (Non-Af Amer) Random Glucose Calcium Total Bilirubin AST ALT Alkaline Phosphatase Total Protein Albumin Globulin Albumin/Globulin Ratio Attending/Attestation - Attestation I have personally seen and examined this patient.: Yes I have fully participated in the care of the patient.: Yes I have reviewed all pertinent clinical information: Yes Notes (Text): This is an addendum to GI consult report dictated by the GI Fellow.The patient was seen and examined earlier. Medical records, lab studies, imagings were reviewed. Last 24 hours events reviewed. Agreed with the above treatment plan as outlined in GI Fellow 's notes with the addition of the following Patient would need EGD to review any upper GI source of blood loss Follow up with hb DIscussed with patient and informed consent was obtained 02/12/18 23:18
[2018-02-12] MEDS ORDERED: Sod Polystyrene Sulf 15 gm/60 ml Susp PO ONE (09:36)
[2018-02-12] MEDS ORDERED: Sodium Chloride 0.45% 1,000 ML IV SCH (11:00)
[2018-02-12 12:54] LABS: HEMOGLOBIN 10.4 g/dL (14.0-18.0); MEAN CELL VOLUME 87.5 fl (80.0-105.0); MEAN CORPUSCULAR HEMOGLOBIN 29.5 pg (25.0-35.0); MEAN CORPUSCULAR HGB CONC 33.7 g/dl (31.0-37.0); MEAN PLATELET VOLUME 8.3 fl (7.0-11.0); RBC 3.53 10^6/uL (3.5-6.1); RED CELL DISTRIBUTION WIDTH 16.3 % (11.5-14.5)
--- NOTE | 2018-02-12 13:27 | PN ---
DATE: 02/12/2018 SUBJECTIVE: The patient is 82 years old, who came feeling weak, tired, dizzy, had symptomatic anemia, was seen in office, had hemoglobin of 7.1 and he was directed to come to Emergency Room. The patient received two blood transfusions. His guaiac was positive. GI is called. The patient initially refused for endoscopy. He did not want to have any procedures done. I had long discussion with the patient. He finally seemed to agree; so, he is being scheduled for endoscopy today. He has no active rectal bleeding. No complaint of nausea or vomiting. No abdominal pain. PHYSICAL EXAMINATION: VITAL SIGNS: The patient is afebrile, pulse 80, respirations 19, blood pressure 135/66. LUNGS: Bilateral fair airflow. No rhonchi or crackle. HEART: S1 and S2 audible. ABDOMEN: Soft, nontender. No rebound. No guarding. NEUROLOGICAL: He is awake, alert, oriented, communicative. Moves all extremities. LABORATORY EXAM: WBC is 8.2, hemoglobin 9.9, hematocrit 29.6, platelet of 189. PT is 16.6, INR 1.43. Chemistry: Sodium 139, potassium 5.1, chloride 112, CO2 of 19, BUN 27, creatinine 2, blood sugar of 83. ASSESSMENT: 1. Symptomatic anemia. 2. History of right leg deep vein thrombosis. 3. History of right leg angioplasty. 4. Right terrazas ulcer followed by skin graft. 5. Hypertension. 6. Hyperlipidemia. 7. History of alcohol abuse. 8. History of smoking. PLAN: I spoke to the patient, he is agreeable to have endoscopy done today. Once this is done, I will discuss with GI. He might be able to get colonoscopy as outpatient. Since he is on Coumadin, it might be difficult and tricky to prepare him for that. I will discuss with Dr. Castañeda. So, we will follow up this patient in the morning. Aquilino Garcia MD
--- NOTE | 2018-02-12 14:55 | CP.PCM.CON ---
<MarcelleFelix - Last Filed: 02/12/18 14:51> History of Present Illness - History of Present Illness History of Present Illness: Podiatry Consult Note for Dr. Pham 82M with PMH hypertension, COPD, gastritis and history of DVT seen at bedside for right leg wound 25 days s/p wound debridement with application of graft. Patient is AAO x 3 and NAD. Denies any new LE complaints at this time. Patient was recently seen in wound care center where new dressing was applied. Denies any recent N/V/F/C/CP/SOB/D/posterior calf pain when squeezed Review of Systems - Review of Systems All systems: reviewed and no additional remarkable complaints except Review of Systems: as per HPI Past Patient History - Infectious Disease Hx of Infectious Diseases: None - Tetanus Immunizations Tetanus Immunization: Unknown - Past Social History Smoking Status: cigars? - CARDIAC Hx Cardiac Disorders: Yes (Femoral angiogram 01-15-18) Hx Congestive Heart Failure: Yes Hx Hypercholesterolemia: Yes Hx Hypertension: Yes Hx Peripheral Edema: Yes (rle +2 edema) Hx Peripheral Vascular Disease: Yes (circulation problem) Other/Comment: dvt 04/2017 - PULMONARY Hx Chronic Obstructive Pulmonary Disease (COPD): Yes - NEUROLOGICAL Hx Neurological Disorder: No - HEENT Hx HEENT Problems: Yes Hx Cataracts: Yes - RENAL Hx Chronic Kidney Disease: No - ENDOCRINE/METABOLIC Hx Endocrine Disorders: No - HEMATOLOGICAL/ONCOLOGICAL Hx Blood Disorders: Yes Hx Anemia: Yes - INTEGUMENTARY Hx Dermatological Problems: Yes Other/Comment: 01-04-18 PROGRESSIVELY WORSENING RIGHT LEG CELLULITIS.WITH LARGE BLISTER FORMATION,MEDIUM AMOUNT OF SEROUS DRAINAGE.PAIN.ERYTHEMA.STARTED APR 06. 01-15-18 POST FEMORAL ANGIOGRAM. LANCED LARGE BLISTER TO RIGHT GONZALES.+ NECROTIC TISSUE.DRY.LESS PAIN. pt refusing to answer questions 02/11/18 unaboot r lower extremity intact pt does not want it removed +2 edema. hx r leg cellulitis w/blisters. - MUSCULOSKELETAL/RHEUMATOLOGICAL Hx Musculoskeletal Disorders: Yes Hx Arthritis: Yes Hx Falls: No Hx Unsteady Gait: Yes (cane at bedside) - GASTROINTESTINAL Hx Gastrointestinal Disorders: Yes (DIVERTICULITIS,GERD,GASTRITIS,POOR APPETITE) Other/Comment: poor appetite - GENITOURINARY/GYNECOLOGICAL Hx Genitourinary Disorders: Yes Hx Prostate Problems: Yes (scraping done) - PSYCHIATRIC Hx Emotional Abuse: No Hx Physical Abuse: No Hx Substance Use: No Other/Comment: hx 2 shots vodka daily, sneaks cigars as per past documentation - SURGICAL HISTORY Hx Surgeries: Yes - ANESTHESIA Hx Anesthesia Reactions: No Hx Malignant Hyperthermia: No Meds Allergies/Adverse Reactions: Allergies Allergy/AdvReac Type Severity Reaction Status Date / Time No Known Allergies Allergy Verified 01/15/18 13:25 - Medications Medications: Current Medications Amlodipine Besylate (Norvasc) 10 mg PO DAILY [facility] Last Admin: 02/12/18 09:47 Dose: 10 mg Atorvastatin Calcium (Lipitor) 10 mg PO DIN [facility] Last Admin: 02/11/18 17:37 Dose: 10 mg Clonidine HCl (Catapres) 0.1 mg PO Q6H PRN PRN Reason: Systolic Blood Pressure Sodium Chloride (Sodium Chloride 0.45%) 1,000 mls @ 40 mls/hr IV .Q24H [facility] Stop: 02/12/18 21:01 Last Admin: 02/12/18 11:31 Dose: 40 mls/hr Pantoprazole Sodium (Protonix Ec Tab) 40 mg PO 0630 [facility] Last Admin: 02/12/18 06:09 Dose: 40 mg Physical Exam - Constitutional Appears: Well, Non-toxic, No Acute Distress - Extremities Exam Additional comments: RLE focused exam Vasc: DP/PT 2/4. Skin temperature warm to warm from proximal to distal WNL. Cap refill < 3 seconds to all digits. No edema noted to right leg at this time Neuro: Epicritic and protective sensation grossly intact b/l Derm: An open wound at the surgical site of debridement and graft measure about 20cm X 4 cm X 0.3 cm. Covered by graft. The graft was intact in place. [place] were intact. No malodor, no serous drainage noted. No clinical signs of active infection. Minimal periwound erythema. MSK: Minimal POP at the periwound site. ROM WNL at all major joints. Muscle power intact 5/5 in all major muscle groups. No other gross deformities noted - Neurological Exam Neurological exam: Alert, Oriented x3 - Psychiatric Exam Psychiatric exam: Normal Affect, Normal Mood Results - Vital Signs Recent Vital Signs: Last Vital Signs Temp 97.7 F 02/12/18 12:00 Pulse 79 02/12/18 14:00 Resp 18 02/12/18 12:00 BP 148/80 02/12/18 12:00 Pulse Ox 99 02/12/18 00:01 - Labs Result Diagrams: 02/12/18 12:50 02/12/18 06:30 Labs: Laboratory Results - last 24 hr 02/12/18 02/12/18 02/12/18 06:30 06:30 07:00 WBC 8.2 RBC 3.37 L Hgb 9.9 L D Hct 29.6 L MCV 87.8 D MCH 29.4 MCHC 33.4 RDW 16.1 H Plt Count 189 MPV 9.1 Gran % 58.0 Lymph % (Auto) 22.7 Harmon % (Auto) 10.0 H Eos % (Auto) 8.9 H Baso % (Auto) 0.4 Gran # 4.77 Lymph # (Auto) 1.9 Harmon # (Auto) 0.8 H Eos # (Auto) 0.7 Baso # (Auto) 0.03 PT 16.6 H INR 1.43 Sodium 139 Potassium 5.1 H Chloride 112 H Carbon Dioxide 19 L Anion Gap 13 BUN 27 H Creatinine 2.0 H Est GFR ( Amer) 39 Est GFR (Non-Af Amer) 32 Random Glucose 83 Calcium 8.4 Total Bilirubin 0.6 AST 23 ALT 21 Alkaline Phosphatase 119 Total Protein 6.3 Albumin 2.6 L Globulin 3.7 Albumin/Globulin Ratio 0.7 L 02/12/18 12:50 WBC 8.0 RBC 3.53 Hgb 10.4 L Hct 30.9 L MCV 87.5 MCH 29.5 MCHC 33.7 RDW 16.3 H Plt Count 149 MPV 8.3 Gran % Lymph % (Auto) Harmon % (Auto) Eos % (Auto) Baso % (Auto) Gran # Lymph # (Auto) Harmon # (Auto) Eos # (Auto) Baso # (Auto) PT INR Sodium Potassium Chloride Carbon Dioxide Anion Gap BUN Creatinine Est GFR ( Amer) Est GFR (Non-Af Amer) Random Glucose Calcium Total Bilirubin AST ALT Alkaline Phosphatase Total Protein Albumin Globulin Albumin/Globulin Ratio Assessment & Plan - Assessment and Plan (Free Text) Assessment: 82M seen at bedside for right leg wound 25 days s/p wound debridement with application of graft Plan: Patient seen and evaluated with Dr. Pham Afebrile, absent leukocytosis Graft left in place Leg dressed with ABD, DSD No plan for further surgical intervention at this time Podiatry will continue to follow while patient in house - Date & Time Date: 02/12/18 Time: 14:57 <Van Pham - Last Filed: 02/13/18 10:09> Meds - Medications Medications: Current Medications Amlodipine Besylate (Norvasc) 10 mg PO DAILY [facility] Last Admin: 02/12/18 09:47 Dose: 10 mg Atorvastatin Calcium (Lipitor) 10 mg PO DIN [facility] Last Admin: 02/12/18 18:50 Dose: 10 mg Clonidine HCl (Catapres) 0.1 mg PO Q6H PRN PRN Reason: Systolic Blood Pressure Last Admin: 02/13/18 08:10 Dose: 0.1 mg Pantoprazole Sodium (Protonix Inj) 40 mg IVP Q12 [facility] Last Admin: 02/12/18 22:35 Dose: 40 mg Results - Vital Signs Recent Vital Signs: Last Vital Signs Temp 98.0 F 02/13/18 06:00 Pulse 77 02/13/18 08:10 Resp 19 02/13/18 06:00 BP 160/82 H 02/13/18 08:10 Pulse Ox 100 02/13/18 06:00 - Labs Result Diagrams: 02/13/18 07:00 02/12/18 06:30 Labs: Laboratory Results - last 24 hr 02/12/18 02/13/18 02/13/18 12:50 07:00 07:00 WBC 8.0 8.1 RBC 3.53 3.67 Hgb 10.4 L 10.9 L Hct 30.9 L 32.3 L MCV 87.5 88.0 MCH 29.5 29.7 MCHC 33.7 33.7 RDW 16.3 H 16.4 H Plt Count 149 167 MPV 8.3 9.0 PT 13.5 H INR 1.17 Attending/Attestation - Attestation I have personally seen and examined this patient.: Yes I have fully participated in the care of the patient.: Yes I have reviewed all pertinent clinical information: Yes
[2018-02-12] MEDS ORDERED: Lactated Ringer's 1,000 ML IV SCH (16:45)
[2018-02-12] MEDS ORDERED: Propofol 10 mg/ml Inj (20 ML) ONE (16:51)
[2018-02-13 06:47] VITALS: RESP 19; O2SAT 100
[2018-02-13 07:49] LABS: HEMOGLOBIN 10.9 g/dL (14.0-18.0); MEAN CORPUSCULAR HEMOGLOBIN 29.7 pg (25.0-35.0); MEAN CORPUSCULAR HGB CONC 33.7 g/dl (31.0-37.0); RBC 3.67 10^6/uL (3.5-6.1); RED CELL DISTRIBUTION WIDTH 16.4 % (11.5-14.5); WHITE BLOOD COUNT 8.1 10^3/ul (4.5-11.0)
[2018-02-13 07:52] LABS: INR 1.17; PROTHROMBIN TIME 13.5 SECONDS (9.4-12.5)
[2018-02-13] MEDS ORDERED: Iohexol 240 (50 ml) ONE (08:59)
--- NOTE | 2018-02-13 11:36 | CT ---
Date of service: 02/13/2018 PROCEDURE: CT Abdomen and Pelvis without intravenous contrast HISTORY: Abdominal Pain; S/P EGD with nonbleeding ulcers COMPARISON: None. TECHNIQUE: Without contrast.. Contrast dose: Radiation dose: Total exam DLP = 222 mGy-cm. This CT exam was performed using one or more of the following dose reduction techniques: Automated exposure control, adjustment of the mA and/or kV according to patient size, and/or use of iterative reconstruction technique. FINDINGS: LOWER THORAX: Unremarkable. LIVER: Unremarkable. No gross lesion or ductal dilatation. GALLBLADDER AND BILE DUCTS: Unremarkable. PANCREAS: Unremarkable. No gross lesion or ductal dilatation. SPLEEN: Unremarkable. ADRENALS: Unremarkable. No mass. KIDNEYS AND URETERS: 6 mm nonobstructing stone in the left kidney. There are no ureteral stones VASCULATURE: Heavily calcified aorta BOWEL: Unremarkable. No obstruction. No gross mural thickening. APPENDIX: Unremarkable. Normal appendix. PERITONEUM: Unremarkable. No free fluid. No free air. LYMPH NODES: Unremarkable. No enlarged lymph nodes. BLADDER: Unremarkable. REPRODUCTIVE: Unremarkable. BONES: Multilevel disc degeneration OTHER FINDINGS: None. IMPRESSION: No acute intra-abdominal findings
[2018-02-13 11:41] VITALS: BP 152/83
[2018-02-13 12:35] VITALS: PULSE 69; TEMP 98
--- NOTE | 2018-02-13 14:22 | CP.PCM.PN ---
<Rod Blandon - Last Filed: 02/13/18 14:16> Subjective - Date & Time of Evaluation Date of Evaluation: 02/13/18 Time of Evaluation: 14:16 - Subjective Subjective: GI Fellow PGY4, No acute overnight events. Abdominal pain this AM and CT completed, negative. No melena. He is tolerating his diet. Objective - Vital Signs/Intake and Output Vital Signs (last 24 hours): Temp Pulse Resp BP Pulse Ox 98 F 69 19 152/83 H 100 02/13/18 12:00 02/13/18 12:00 02/13/18 12:00 02/13/18 12:00 02/13/18 06:00 Intake and Output: 02/13/18 02/13/18 06:59 18:59 Intake Total 1500 660 Output Total 1925 300 Balance -425 360 - Medications Medications: Current Medications Amlodipine Besylate (Norvasc) 10 mg PO DAILY [facility] Last Admin: 02/13/18 11:40 Dose: 10 mg Atorvastatin Calcium (Lipitor) 10 mg PO DIN [facility] Last Admin: 02/12/18 18:50 Dose: 10 mg Clonidine HCl (Catapres) 0.1 mg PO Q6H PRN PRN Reason: Systolic Blood Pressure Last Admin: 02/13/18 08:10 Dose: 0.1 mg Pantoprazole Sodium (Protonix Inj) 40 mg IVP Q12 [facility] Last Admin: 02/13/18 11:40 Dose: 40 mg - Labs Labs: 02/13/18 07:00 02/12/18 06:30 PT 13.5 SECONDS (9.4-12.5) H 02/13/18 07:00 INR 1.17 02/13/18 07:00 APTT 50.0 Seconds (25.1-36.5) H 02/11/18 12:50 - Constitutional Appears: No Acute Distress - Head Exam Head Exam: NORMAL INSPECTION - Eye Exam Eye Exam: Normal appearance - ENT Exam ENT Exam: Mucous Membranes Moist - Respiratory Exam Respiratory Exam: Clear to Ausculation Bilateral, NORMAL BREATHING PATTERN - Cardiovascular Exam Cardiovascular Exam: REGULAR RHYTHM - GI/Abdominal Exam GI & Abdominal Exam: Soft, Normal Bowel Sounds. absent: Tenderness - Extremities Exam Extremities Exam: Normal Inspection - Neurological Exam Neurological Exam: Alert, Awake, Oriented x3 - Psychiatric Exam Psychiatric exam: Normal Affect, Normal Mood - Skin Skin Exam: Dry, Normal Color Assessment and Plan - Assessment and Plan (Free Text) Assessment: 82M with hx of tubular adenomas (2011), supratherapeutic warfarin presenting with anemia and + rectal exam for blood. #Acute blood loss anemia due to elevated INR and GI bleed - s/p 2u pRBCs #Supratherapeutic INR - s/p vit k, resolved #Weight loss #Malnourished #PVD #Irregular heart rhythm PLAN: - EGD shows multiple gastric ulcers, friable and easily provoked to bleed. - Monitor Hb, transfuse for Hb less than 7. - He will need colonoscopy and EGD and close follow up with GI. -Patient pleasantly refusing to stay in hospital. He has been educated to avoid NSAIDs and instructed to take omeprazole 40 BID. -Hold Warfarin for 7-10 days. Restart per PCP. <Maddy,Kovil V - Last Filed: 02/13/18 21:42> Objective - Vital Signs/Intake and Output Vital Signs (last 24 hours): Temp Pulse Resp BP Pulse Ox 98 F 69 19 152/83 H 100 02/13/18 12:00 02/13/18 12:00 02/13/18 12:00 02/13/18 12:00 02/13/18 06:00 Intake and Output: 02/13/18 02/14/18 18:59 06:59 Intake Total 660 Output Total 300 Balance 360 - Labs Labs: 02/13/18 07:00 02/12/18 06:30 PT 13.5 SECONDS (9.4-12.5) H 02/13/18 07:00 INR 1.17 02/13/18 07:00 APTT 50.0 Seconds (25.1-36.5) H 02/11/18 12:50 Attending/Attestation - Attestation I have personally seen and examined this patient.: Yes I have fully participated in the care of the patient.: Yes I have reviewed all pertinent clinical information, including history, physical exam and plan: Yes Notes (Text): This is an addendum to GI progress report dictated by the GI Fellow.The patient was seen and examined earlier. Medical records, lab studies, imagings were reviewed. Last 24 hours events reviewed. Agreed with the above treatment plan as outlined in GI Fellow 's notes with the addition of the following Patient has multiple gastric ulcer this can be etiology of acute bleed Coagulapathy corrected would need repeat EGD and colonoscopy evaluation Will discuss with dr Odonnell 02/13/18 21:41
--- NOTE | 2018-02-14 01:47 | DS ---
HISTORY OF PRESENT ILLNESS: The patient is 82 years old who was admitted because of symptomatic anemia. The patient was found to have hemoglobin of 6.1. He was given 2 blood transfusions, underwent endoscopy yesterday, was found to have bleeding ulcers. Not actively bleeding and then his Coumadin is on hold. He was given a dose of vitamin K and reversed his anticoagulation that he is on for his right leg DVT. PHYSICAL EXAMINATION: GENERAL: He is awake, alert and oriented, want to go home, states he feels well. VITAL SIGNS: He is afebrile, pulse 79, respirations 18, blood pressure 152/83. LUNGS: Bilateral good airflow. No rhonchi or crackle. HEART: S1, S2 audible. ABDOMEN: Soft, nontender. No rebound. No guarding. NEUROLOGIC: Patient is awake, alert, oriented, communicative. EXTREMITIES: Bilateral legs, no edema. His right leg is in the dressing done by Podiatry team, was told he is doing well. LABORATORY EXAM: WBC is 8.1, hemoglobin 10.9, hematocrit 32.3, platelets 167. His PT is 13.5. INR 1.17. Chemistry: Sodium 139, potassium 5.1, chloride 112, CO2 of 19, BUN 27, creatinine 2. Blood sugar of 83. CT scan of the abdomen and pelvis is negative. ASSESSMENT: 1. Symptomatic anemia. 2. Gastritis and not actively bleeding gastric ulcers. 3. History of hypertension. 4. Chronic kidney disease. 5. Right leg deep venous thrombosis. PLAN: Discussed with Dr. Castañeda. The patient's hemoglobin is stable, he is adamant to go home. We will discharge him home today on omeprazole 40 mg twice a day. We will resume all his medications. We will start Coumadin next week again and he is advised to follow up in office in 3 days. He will follow [facility] with [facility] on Thursday. Aquilino Garcia MD
--- NOTE | 2018-02-18 11:10 | PQF ---
PROVIDER RESPONSE TEXT: Provider was unable to determine a response for this query. REVIEWER QUERY TEXT: Malnutrition Severity Malnutrition is documented in the Medical Record. Please specify the severity Such as: -- Mild - first degree -- Moderate - second degree -- Severe - third degree -- Severe malnutrition with marasmus -- Other, please specify The patient's Clinical Indicators include: "Malnourished" is documented on progress note of 02/13. You do not state this on your discharge summar y. Do you agree, disagree, undetermined, other with malnutrition for this patient? If you agree, plea se document type/severity, as indicated below. Thank you. Query created by: Yvette Gottlieb on 02/15/2018 1:50 PM Electronically signed by: Aquilino Garcia MD 02/18/2018 11:07 AM
== END 2018-02-13 16:14 | disposition home or self-care (01) | DRG 378 ==
LOC: ED 12:31 → ERH 13:45 → 2RNO 15:17
PROVIDERS: ADMIT Internal Medicine; ATTEND Internal Medicine
PROC: 30233N1 Transfusion of Nonautologous Red Blood Cells into Peripheral Vein, Percutaneous Approach (ICD-10-PCS; 2018-02-11)
PROC: 0DJ08ZZ Inspection of Upper Intestinal Tract, Via Natural or Artificial Opening Endoscopic (ICD-10-PCS; principal; 2018-02-12 14:45)
DX: K25.4 Chronic or unspecified gastric ulcer with hemorrhage (principal); D62 Acute posthemorrhagic anemia; L97.819 Non-pressure chronic ulcer of other part of right lower leg with unspecified severity; L03.115 Cellulitis of right lower limb; D68.9 Coagulation defect, unspecified; I13.0 Hypertensive heart and chronic kidney disease with heart failure and stage 1 through stage 4 chronic kidney disease, or unspecified chronic kidney disease; J44.9 Chronic obstructive pulmonary disease, unspecified; R53.1 Weakness; Z86.718 Personal history of other venous thrombosis and embolism; Z79.01 Long term (current) use of anticoagulants; I73.9 Peripheral vascular disease, unspecified; Z87.891 Personal history of nicotine dependence; F10.10 Alcohol abuse, uncomplicated; R63.4 Abnormal weight loss; K29.70 Gastritis, unspecified, without bleeding; E78.00 Pure hypercholesterolemia, unspecified; E78.5 Hyperlipidemia, unspecified; N18.9 Chronic kidney disease, unspecified; I50.9 Heart failure, unspecified; K21.9 Gastro-esophageal reflux disease without esophagitis; Z79.82 Long term (current) use of aspirin; Z79.899 Other long term (current) drug therapy

== ENCOUNTER 2018-04-08 10:50 | Observation (INO) | payer MEDICARE ==
[2018-04-08 11:47] LABS: BASO # 0.03 K/mm3 (0.0-2.0); BASO % 0.4 % (0.0-3.0); EOS # 0.6 (0.0-0.7); EOS % 7.6 % (1.5-5.0); GRAN # 4.21 (1.4-6.5); GRAN % 56.5 % (50.0-68.0); LYMPH # 2.1 (1.2-3.4); MEAN CELL VOLUME 91.9 fl (80.0-105.0); MEAN CORPUSCULAR HEMOGLOBIN 29.5 pg (25.0-35.0); MEAN CORPUSCULAR HGB CONC 32.1 g/dl (31.0-37.0); MEAN PLATELET VOLUME 8.5 fl (7.0-11.0); MONO # 0.6 (0.1-0.6); MONO % 7.5 % (1.0-6.0); RBC 2.34 10^6/uL (3.5-6.1); RED CELL DISTRIBUTION WIDTH 14.6 % (11.5-14.5); WHITE BLOOD COUNT 7.5 10^3/uL (4.5-11.0)
[2018-04-08 11:52] LABS: HEMOGLOBIN 6.9 g/dL (14.0-18.0)
[2018-04-08 11:56] LABS: ALB/GLOB RATIO 0.8 (1.1-1.8); ALBUMIN 3.5 g/dL (3.0-4.8); CALCIUM 8.7 mg/dL (8.4-10.5)
--- NOTE | 2018-04-08 12:00 | ED PDOC ---
Arrival/HPI - General Chief Complaint: Abnormal Labs Historian: Patient - History of Present Illness Narrative History of Present Illness (Text): 04/08/18 11:14 82 year old male, whose past medical history includes hypertension, COPD, gastritis and history of DVT (04/2017 - on coumadin), presents to the emergency department sent in by Dr. Garcia for low hemoglobin today. Patient states he went to Dr. Garcia's office on Thursday for a routine check up and had blood work done. Patient received a call from Dr. Garcia's office today and was asked to present to the hospital for a possible transfusion secondary to anemia. He is not a smoker or drinker. Patient reports generalized weakness, and fatigue but denies any other associated complaints. Patient denies any fever, chills, chest pain, shortness of breath, nausea, vomiting, diarrhea, urinary symptoms, back pain, neck pain, headache, dizziness, stool changes or any other complaints. Patient denies any smoking cigarettes or drinking alcohol. PMD: Dr. Garcia Time/Duration: Prior to Arrival Symptom Onset: Gradual Symptom Course: Unchanged Activities at Onset: Light Context: Other (Referred by Dr. Garcia) Past Medical History - Provider Review Nursing Documentation Reviewed: Yes - Infectious Disease Hx of Infectious Diseases: None - Tetanus Immunization Tetanus Immunization: Unknown - Cardiac Hx Cardiac Disorders: Yes Hx Congestive Heart Failure: Yes Hx Hypertension: Yes Hx Peripheral Edema: Yes Hx Peripheral Vascular Disease: Yes - Pulmonary Hx Respiratory Disorders: Yes Hx Chronic Obstructive Pulmonary Disease (COPD): Yes - Neurological Hx Neurological Disorder: No - HEENT Hx HEENT Disorder: Yes Hx Cataracts: Yes - Renal Hx Renal Disorder: Yes Hx Renal Failure: Yes - Endocrine/Metabolic Hx Endocrine Disorders: No - Hematological/Oncological Hx Blood Disorders: Yes Hx Anemia: Yes - Integumentary Hx Dermatological Disorder: Yes Hx Cellulitis: Yes - Musculoskeletal/Rheumatological Hx Musculoskeletal Disorders: Yes Hx Arthritis: Yes Hx Unsteady Gait: Yes - Gastrointestinal Hx Gastrointestinal Disorders: Yes Hx Gastroesophageal Reflux: Yes Other/Comment: GI BLEED - Genitourinary/Gynecological Hx Genitourinary Disorders: Yes Hx Prostate Problems: Yes - Psychiatric Hx Psychophysiologic Disorder: Yes Hx Emotional Abuse: No Hx Physical Abuse: No Hx Substance Use: No Other/Comment: ALCOHOL ABUSE - Past Surgical History Past Surgical History: No Previous - Anesthesia Hx Anesthesia Reactions: No Hx Malignant Hyperthermia: No - Suicidal Assessment Feels Threatened In Home Enviroment: No Family/Social History - Physician Review Nursing Documentation Reviewed: Yes Family/Social History: Unknown Family HX Smoking Status: Never Smoked Hx Alcohol Use: Yes Hx Substance Use: No Hx Substance Use Treatment: No Allergies/Home Meds Allergies/Adverse Reactions: Allergies No Known Allergies Allergy (Verified 04/08/18 10:56) Home Medications: Home Meds Medication Instructions Recorded Confirmed Omeprazole 40 mg PO BID 01/04/18 04/08/18 Lisinopril [Zestril] 10 mg PO DAILY 02/11/18 04/08/18 Warfarin [Coumadin] 5 mg PO DAILY 02/11/18 04/08/18 Review of Systems - Physician Review All systems were reviewed & negative as marked: Yes - Review of Systems Constitutional: Fatigue, Other (generalized weakness). absent: Fevers Respiratory: absent: SOB, Cough Cardiovascular: absent: Chest Pain Gastrointestinal: absent: Abdominal Pain, Diarrhea, Nausea, Vomiting Musculoskeletal: absent: Back Pain Neurological: absent: Headache, Dizziness Physical Exam Vital Signs Reviewed: Yes Vital Signs Temp Pulse Resp BP Pulse Ox 04/08/18 10:57 98.0 F 86 17 132/69 100 Temperature: Afebrile Blood Pressure: Normal Pulse: Regular Respiratory Rate: Normal Appearance: Positive for: Well-Appearing, Non-Toxic, Comfortable Pain Distress: None Mental Status: Positive for: Alert and Oriented X 3 - Systems Exam Head: Present: Atraumatic, Normocephalic Pupils: Present: PERRL Extroacular Muscles: Present: EOMI Conjunctiva: Present: Normal Mouth: Present: Dry Neck: Present: Normal Range of Motion Respiratory/Chest: Present: Clear to Auscultation, Good Air Exchange. No: Respiratory Distress, Accessory Muscle Use Cardiovascular: Present: Regular Rate and Rhythm, Normal S1, S2. No: Murmurs Abdomen: No: Tenderness, Distention, Peritoneal Signs Back: Present: Normal Inspection Upper Extremity: Present: Normal Inspection. No: Cyanosis, Edema Lower Extremity: Present: Normal Inspection. No: Edema Neurological: Present: GCS=15, CN II-XII Intact, Speech Normal Skin: Present: Warm, Dry, Normal Color. No: Rashes Psychiatric: Present: Alert, Oriented x 3, Normal Insight, Normal Concentration Medical Decision Making ED Course and Treatment: 04/08/18 11:14 Impression: 82 year old male presents to the Emergency department for evaluation of low hemoglobin. Plan: -- Labs -- Reassess and disposition Prior Visits: Notes and results from previous visits were reviewed. Progress Notes: 04/08/18 12:[address] Garcia, who is aware and agrees with Emergency department management plan, accepts patient admission to the hospital under her service. - Scribe Statement The provider has reviewed the documentation as recorded by the Scribe Jasmin Whitfield. All medical record entries made by the Ángelibe were at my direction and personally dictated by me. I have reviewed the chart and agree that the record accurately reflects my personal performance of the history, physical exam, medical decision making, and the department course for this patient. I have also personally directed, reviewed, and agree with the discharge instructions and disposition. Disposition/Present on Arrival - Present on Arrival Any Indicators Present on Arrival: No History of DVT/PE: No History of Uncontrolled Diabetes: No Urinary Catheter: No History of Decub. Ulcer: No History Surgical Site Infection Following: None - Disposition Have Diagnosis and Disposition been Completed?: Yes Diagnosis: Anemia Disposition: HOSPITALIZED Disposition Time: 12:00 Condition: STABLE
[2018-04-08 12:03] LABS: PARTIAL THROMBOPLASTIN TIME 45.4 Seconds (25.1-36.5)
[2018-04-08 12:24] LABS: INR 3.97
--- NOTE | 2018-04-08 14:28 | HP ---
DATE OF EXAM: 04/08/2018 HISTORY OF PRESENT ILLNESS: Patient is 82 years old who was seen in my office day before yesterday. We had further routine checkup. He looked pale and also he was there to check his Coumadin level, so yesterday's result came and his hemoglobin was 7.5, so he was advised to come to emergency room yesterday; however, he could not make any arrangement to come to ER, but he came and showed up day in the emergency room. Denies any blood-stained stools, no black stools, no other obvious sign of bleeding. The patient is on Coumadin because of his right leg DVT and coagulopathy. He denies any fever or chills. No history of nausea or vomiting. No abdominal pain. He has a right terrazas ulcer that he developed when he was admitted on 01/04/2018 with right leg swelling and glister. At that point, he was found to have severe PVD and was evaluated by Dr. Silver Dempsey and was found to have peripheral vascular disease. He had angioplasty done back then. He was sent home on Coumadin and he was advised to follow up with Dr. Pham for wound care and he comes to my office for Coumadin level checkup intermittently. PAST MEDICAL HISTORY: Significant for: 1. Hypertension. 2. Peripheral vascular disease. SOCIAL HISTORY: Lives by himself. He was a heavy drinker for all his life and has been heavy smoker, but he recently quit. ALLERGIES: NOT ALLERGIC TO ANY MEDICATION. MEDICATIONS: At home, he is on atorvastatin 20 mg daily, Coumadin 5 mg daily, omeprazole 40 mg twice a day and lisinopril 10 mg daily. REVIEW OF SYSTEMS: Significant for nonhealing right terrazas and foot ulcer. PHYSICAL EXAMINATION: GENERAL: He is awake, alert, oriented, communicative, answers appropriately, fully awake, alert and oriented. VITAL SIGNS: He is afebrile, pulse 86, respirations 17, blood pressure 132/69. LUNGS: Bilateral fair airflow. No rhonchi or crackle. No pleural rub. No added sound. HEART: S1 and S2 audible. No gallop, no murmur. ABDOMEN: Soft, nontender. No rebound, no guarding. NEUROLOGICAL: He is awake, alert, oriented, communicative. Moves all extremities. Right leg is in the dressing. LABORATORY DATA: WBC is 7.5, hemoglobin 6,9, hematocrit 21.5 and platelets of 236,000. PT 47.0, INR 3.97. Chemistry: Sodium 137, potassium 4.9, chloride 108, CO2 of 20, BUN 24, creatinine 2.3 and blood sugar of 88. LFTs are within normal limits. ASSESSMENT: 1. Symptomatic anemia. 2. Hypertension. 3. Hyperlipidemia. 4. Severe peripheral vascular disease. 5. History of chronic obstructive pulmonary disease. 6. History of deep venous thrombosis in 04/2017. PLAN: We will transfuse the patient [address] Pham will follow up the wound. We will resume his medications. Follow up his H and H in a.m. Hold Coumadin for today. We will follow up PT INR in a.m. Aquilino Garcia MD
[2018-04-08 14:51] VITALS: BMI 17.2
[2018-04-08 17:22] VITALS: O2SAT 98
[2018-04-08 23:51] VITALS: TEMP 98.1
[2018-04-09] MEDS ORDERED: Pantoprazole 40 mg EC Tab PO SCH (06:30)
[2018-04-09 07:12] LABS: INR 2.77; PROTHROMBIN TIME 32.5 SECONDS (9.4-12.5)
[2018-04-09 07:18] LABS: BASO # 0.02 K/mm3 (0.0-2.0); BASO % 0.3 % (0.0-3.0); EOS # 0.6 (0.0-0.7); EOS % 7.9 % (1.5-5.0); GRAN # 4.46 (1.4-6.5); GRAN % 59.6 % (50.0-68.0); LYMPH # 1.5 (1.2-3.4); LYMPH % 20.6 % (22.0-35.0); MEAN CELL VOLUME 88.3 fl (80.0-105.0); MEAN CORPUSCULAR HEMOGLOBIN 29.5 pg (25.0-35.0); MEAN CORPUSCULAR HGB CONC 33.4 g/dl (31.0-37.0); MONO # 0.9 (0.1-0.6); MONO % 11.6 % (1.0-6.0); RBC 3.42 10^6/uL (3.5-6.1); RED CELL DISTRIBUTION WIDTH 14.3 % (11.5-14.5); WHITE BLOOD COUNT 7.5 10^3/uL (4.5-11.0)
[2018-04-09 07:30] LABS: HEMOGLOBIN 10.1 g/dL (14.0-18.0)
[2018-04-09 07:33] LABS: ALB/GLOB RATIO 0.8 (1.1-1.8); ALBUMIN 3.1 g/dL (3.0-4.8); CALCIUM 8.6 mg/dL (8.4-10.5)
[2018-04-09 08:01] VITALS: BP 132/71; PULSE 80; RESP 18
--- NOTE | 2018-04-09 11:33 | CP.PCM.CON ---
History of Present Illness - History of Present Illness History of Present Illness: Podiatry progress note for Dr. Leach 82 yo male with pmhx of hypertension, COPD, gastritis and history of DVT presented to the ED yesterday for anemia. On examination he was found to have dressings on the right lower leg from the knee to the ankle. Patient has a wound on the lateral aspect of the leg that has been present for 6 weeks. States that he had had surgery with Dr. Pham and his wound was debrided and cultured. States that it is painful but does not bother him throughout the day. States that he had an appointment for next week with Dr. Pham in the wound care center. Denies N/V/F/C/SOB/CP today and has no other pedal complaints today. PMHx - hypertension, COPD, gastritis and history of DVT PSHx - right lower leg surgical wound debridement All - NKDA Past Patient History - Infectious Disease Hx of Infectious Diseases: None - Tetanus Immunizations Tetanus Immunization: Unknown - Past Social History Smoking Status: Never Smoked - CARDIAC Hx Cardiac Disorders: Yes Hx Congestive Heart Failure: Yes Hx Hypertension: Yes Hx Peripheral Edema: Yes Hx Peripheral Vascular Disease: Yes - PULMONARY Hx Respiratory Disorders: Yes Hx Chronic Obstructive Pulmonary Disease (COPD): Yes - NEUROLOGICAL Hx Neurological Disorder: No - HEENT Hx HEENT Problems: Yes Hx Cataracts: Yes - RENAL Hx Chronic Kidney Disease: Yes Hx Renal Failure: Yes - ENDOCRINE/METABOLIC Hx Endocrine Disorders: No - HEMATOLOGICAL/ONCOLOGICAL Hx Blood Disorders: Yes Hx Anemia: Yes - INTEGUMENTARY Hx Dermatological Problems: Yes Hx Cellulitis: Yes - MUSCULOSKELETAL/RHEUMATOLOGICAL Hx Musculoskeletal Disorders: Yes Hx Arthritis: Yes Hx Unsteady Gait: Yes - GASTROINTESTINAL Hx Gastrointestinal Disorders: Yes Hx Gastroesophageal Reflux: Yes Other/Comment: GI BLEED - GENITOURINARY/GYNECOLOGICAL Hx Genitourinary Disorders: Yes Hx Prostate Problems: Yes - PSYCHIATRIC Hx Psychophysiologic Disorder: Yes Hx Emotional Abuse: No Hx Physical Abuse: No Hx Substance Use: No Other/Comment: ALCOHOL ABUSE - SURGICAL HISTORY Hx Surgeries: Yes Other/Comment: s/p skin graft to RT lower extremity - ANESTHESIA Hx Anesthesia Reactions: No Hx Malignant Hyperthermia: No Meds Home Medications: Home Medication List Medication Instructions Recorded Confirmed Type Acetaminophen [Tylenol 325mg tab] 650 mg PO Q6H PRN tab 11/09/18 Rx Atorvastatin [Lipitor] 20 mg PO DIN tab 04/09/18 Rx Lisinopril [Zestril] 10 mg PO DAILY tab 04/09/18 Rx Pantoprazole [Protonix EC Tab] 40 mg PO 0630 ect 04/09/18 Rx Allergies/Adverse Reactions: Allergies Allergy/AdvReac Type Severity Reaction Status Date / Time No Known Allergies Allergy Verified 04/08/18 10:56 - Medications Medications: Current Medications Acetaminophen (Tylenol 325mg Tab) 650 mg PO Q6H PRN PRN Reason: Fever >100.4 F Last Admin: 04/08/18 22:10 Dose: 650 mg Atorvastatin Calcium (Lipitor) 20 mg PO DIN [facility] Last Admin: 04/08/18 17:13 Dose: 20 mg Furosemide (Lasix) 20 mg IVP ONCE PRN PRN Reason: Administer after 1unit PRBC Last Admin: 04/08/18 20:42 Dose: 20 mg Lisinopril (Zestril) 10 mg PO DAILY [facility] Last Admin: 04/09/18 09:59 Dose: 10 mg Pantoprazole Sodium (Protonix Ec Tab) 40 mg PO 0630 [facility] Last Admin: 04/09/18 05:54 Dose: 40 mg Physical Exam - Constitutional Appears: Well, Non-toxic, No Acute Distress - Head Exam Head Exam: ATRAUMATIC, NORMOCEPHALIC - Extremities Exam Additional comments: RLE focused exam Vasc: DP/PT 2/4. Skin temperature warm to warm from proximal to distal WNL. Cap refill < 3 seconds to all digits. No edema noted to right leg at this time Neuro: Epicritic and protective sensation grossly intact b/l Derm: An open wound at the surgical site of debridement and graft measure about 20cm X 4 cm X 0.3 cm. No pus, no purulent discharge or drainage, no clinical signs of infection. minimal periwound erythema. MSK: Minimal POP at the periwound site. ROM WNL at all major joints. Muscle power intact 5/5 in all major muscle groups. No other gross deformities noted - Neurological Exam Neurological exam: Alert, Oriented x3 - Psychiatric Exam Psychiatric exam: Normal Affect, Normal Mood Results - Vital Signs Recent Vital Signs: Last Vital Signs Temp 98.1 F 04/09/18 08:01 Pulse 80 04/09/18 09:59 Resp 18 04/09/18 08:01 BP 132/71 04/09/18 09:59 Pulse Ox 98 04/09/18 08:01 - Labs Result Diagrams: 04/09/18 06:00 04/09/18 06:00 Labs: Laboratory Results - last 24 hr 04/08/18 04/08/18 04/08/18 11:36 11:36 11:36 WBC 7.5 RBC 2.34 L Hgb 6.9 L* D Hct 21.5 L MCV 91.9 D MCH 29.5 MCHC 32.1 RDW 14.6 H Plt Count 236 MPV 8.5 Gran % 56.5 Lymph % (Auto) 28.0 Burnett % (Auto) 7.5 H Eos % (Auto) 7.6 H Baso % (Auto) 0.4 Gran # 4.21 Lymph # (Auto) 2.1 Burnett # (Auto) 0.6 Eos # (Auto) 0.6 Baso # (Auto) 0.03 PT 47.0 H INR 3.97 H* APTT 45.4 H Sodium 137 Potassium 4.9 Chloride 108 H Carbon Dioxide 20 L Anion Gap 14 BUN 24 H Creatinine 2.3 H Est GFR ( Amer) 33 Est GFR (Non-Af Amer) 27 Random Glucose 88 Calcium 8.7 Total Bilirubin 0.3 AST 23 ALT 17 Alkaline Phosphatase 110 Total Protein 7.9 Albumin 3.5 Globulin 4.4 Albumin/Globulin Ratio 0.8 L Blood Type Antibody Screen Crossmatch BBK History Checked 04/08/18 04/09/18 04/09/18 13:17 06:00 06:00 WBC 7.5 RBC 3.42 L Hgb 10.1 L D Hct 30.2 L MCV 88.3 D MCH 29.5 MCHC 33.4 RDW 14.3 Plt Count 193 MPV 9.0 Gran % 59.6 Lymph % (Auto) 20.6 L Burnett % (Auto) 11.6 H Eos % (Auto) 7.9 H Baso % (Auto) 0.3 Gran # 4.46 Lymph # (Auto) 1.5 Burnett # (Auto) 0.9 H Eos # (Auto) 0.6 Baso # (Auto) 0.02 PT INR APTT Sodium 134 Potassium 4.9 Chloride 107 Carbon Dioxide 23 Anion Gap 10 BUN 24 H Creatinine 2.1 H Est GFR ( Amer) 37 Est GFR (Non-Af Amer) 30 Random Glucose 102 Calcium 8.6 Total Bilirubin 0.6 AST 25 ALT 13 Alkaline Phosphatase 109 Total Protein 6.9 Albumin 3.1 Globulin 3.9 Albumin/Globulin Ratio 0.8 L Blood Type A POSITIVE Antibody Screen Negative Crossmatch See Detail BBK History Checked Patient has bt 04/09/18 06:00 WBC RBC Hgb Hct MCV MCH MCHC RDW Plt Count MPV Gran % Lymph % (Auto) Burnett % (Auto) Eos % (Auto) Baso % (Auto) Gran # Lymph # (Auto) Burnett # (Auto) Eos # (Auto) Baso # (Auto) PT 32.5 H INR 2.77 APTT Sodium Potassium Chloride Carbon Dioxide Anion Gap BUN Creatinine Est GFR ( Amer) Est GFR (Non-Af Amer) Random Glucose Calcium Total Bilirubin AST ALT Alkaline Phosphatase Total Protein Albumin Globulin Albumin/Globulin Ratio Blood Type Antibody Screen Crossmatch BBK History Checked Assessment & Plan - Assessment and Plan (Free Text) Assessment: 82 yo male evaluated for right lower leg surgically debrided and grafted wound Plan: Patient seen and evaluated at bedside with Dr. Leach Charts and labs reviewed - afebrile, absent leukocytosis Dressing taken down, wound cleansed with chlorhexadine wipes, dressed with adaptic and DSD Patient instructed to keep dressings clean dry and intact and come in for scheduled appointment with Dr. Pham in the wound care center next week Patient demonstrated understanding Patient stable for discharge from podiatry standpoint Thank you for the consult - Date & Time Date: 04/09/18 Time: 12:18
--- NOTE | 2018-04-09 23:23 | DS ---
HISTORY OF PRESENT ILLNESS: Patient is 82 years old who was seen in the office, was found to be anemic, and was advised to come to emergency room to receive blood transfusion. Patient received two blood. He was seen by Dr. Leach who was changing the dressing. Patient had angioplasty done, but his wound is not healing that great, although has granulation tissue. PHYSICAL EXAMINATION: VITAL SIGNS: He is afebrile, pulse 80, respirations 18, and blood pressure 152/71. LUNGS: Bilateral good airflow. No rhonchi or crackle. HEART: S1 and S2 audible. ABDOMEN: Soft. Nontender. No rebound. No guarding. NEUROLOGIC: He is awake, alert, oriented, and communicative. LABORATORY DATA: WBC 7.5, hemoglobin 10, hematocrit 30, platelet count 193,000. PT 32.5. INR 2.77. Chemistries; sodium 134, potassium 4.9, chloride 107, CO2 of 20, BUN 24, creatinine . ASSESSMENT: 1. Symptomatic anemia. Recently had endoscopy done and was found to have multiple ulcers. Patient is on Protonix. 2. History of chronic obstructive pulmonary disease. 3. Hypertension. 4. History of deep venous thrombosis in the right leg. 5. Right terrazas ulcer granulating. 6. Anemia. PLAN: The patient is clinically stable. I have given him a dose of Venofer prior to discharge, although his hemoglobin is well and he will continue to follow with Dr. Pham as outpatient for wound care. He will resume his medications. Aquilino Garcia MD
== END 2018-04-09 14:52 ==
LOC: ED 10:50 → ERH 12:35 → INTOOBSV 12:35 → ERH 13:50 → 3RSO 14:23
PROVIDERS: ADMIT Internal Medicine; ATTEND Internal Medicine
DX: D64.9 Anemia, unspecified (principal); I13.0 Hypertensive heart and chronic kidney disease with heart failure and stage 1 through stage 4 chronic kidney disease, or unspecified chronic kidney disease; I50.9 Heart failure, unspecified; N18.9 Chronic kidney disease, unspecified; L97.819 Non-pressure chronic ulcer of other part of right lower leg with unspecified severity; I73.9 Peripheral vascular disease, unspecified; J44.9 Chronic obstructive pulmonary disease, unspecified; K21.9 Gastro-esophageal reflux disease without esophagitis; E78.5 Hyperlipidemia, unspecified; Z86.718 Personal history of other venous thrombosis and embolism; Z79.01 Long term (current) use of anticoagulants; Z87.891 Personal history of nicotine dependence
CPT/HCPCS: 36415; 36430; 80053; 85025; 85610; 85730; 86850; 86900; 86920; 87070; 87181; 96374; 99283; G0378; J1940; P9016

== ENCOUNTER 2018-04-30 16:26 | Inpatient (IN) | payer MEDICARE, OTHER ==
[2018-04-30 17:47] LABS: RBC 2.31 10^6/uL (3.5-6.1); WHITE BLOOD COUNT 7.6 10^3/uL (4.5-11.0)
--- NOTE | 2018-04-30 17:49 | ED PDOC ---
Arrival/HPI - General Chief Complaint: Abnormal Labs Historian: Patient - History of Present Illness Narrative History of Present Illness (Text): 04/30/18 17:44 A 82 year old male, whose past medical history includes hypertension, COPD, gastritis and history of DVT (04/2017 - on coumadin), presents to the emergency department for elevated creatinine . Patient states his blood work was taken yesterday in Dr. Garcia's office and was called today by the doctor to go to the ER for elevated creatinine levels. Patient denies any focal weakness, fever, chills, shortness of breath, chest pain, diarrhea, nausea, vomiting, urinary symptoms, back pain, neck pain, headache, dizziness, or any other somatic complaints. PMD: Dr. Garcia Time/Duration: 4-6 hours (earlier today) Symptom Onset: Gradual Symptom Course: Unchanged Activities at Onset: Light Context: Home Past Medical History - Provider Review Nursing Documentation Reviewed: Yes - Infectious Disease Hx of Infectious Diseases: None - Tetanus Immunization Tetanus Immunization: Unknown - Cardiac Hx Cardiac Disorders: Yes Hx Congestive Heart Failure: Yes Hx Hypertension: Yes Hx Peripheral Edema: Yes Hx Peripheral Vascular Disease: Yes - Pulmonary Hx Respiratory Disorders: Yes Hx Chronic Obstructive Pulmonary Disease (COPD): Yes - Neurological Hx Neurological Disorder: No - HEENT Hx HEENT Disorder: Yes Hx Cataracts: Yes - Renal Hx Renal Disorder: Yes Hx Renal Failure: Yes - Endocrine/Metabolic Hx Endocrine Disorders: No - Hematological/Oncological Hx Blood Disorders: Yes Hx Anemia: Yes - Integumentary Hx Dermatological Disorder: Yes Hx Cellulitis: Yes - Musculoskeletal/Rheumatological Hx Musculoskeletal Disorders: Yes Hx Arthritis: Yes Hx Unsteady Gait: Yes - Gastrointestinal Hx Gastrointestinal Disorders: Yes Hx Gastroesophageal Reflux: Yes Other/Comment: GI BLEED - Genitourinary/Gynecological Hx Genitourinary Disorders: Yes Hx Prostate Problems: Yes - Psychiatric Hx Psychophysiologic Disorder: Yes Hx Substance Use: No Other/Comment: ALCOHOL ABUSE - Past Surgical History Past Surgical History: No Previous - Surgical History Other/Comment: s/p skin graft to RT lower extremity - Anesthesia Hx Anesthesia Reactions: No Hx Malignant Hyperthermia: No - Suicidal Assessment Feels Threatened In Home Enviroment: No Family/Social History - Physician Review Nursing Documentation Reviewed: Yes Family/Social History: Unknown Family HX Smoking Status: Never Smoked Hx Alcohol Use: Yes Hx Substance Use: No Hx Substance Use Treatment: No Allergies/Home Meds Allergies/Adverse Reactions: Allergies No Known Allergies Allergy (Verified 04/08/18 10:56) Home Medications: Home Meds Medication Instructions Recorded Confirmed Omeprazole 40 mg PO BID 01/04/18 04/30/18 Warfarin [Coumadin] 5 mg PO DAILY 02/11/18 04/30/18 Atorvastatin [Lipitor] 10 mg PO DAILY 04/30/18 04/30/18 Clindamycin HCl [Cleocin HCl] 150 mg PO Q8 04/30/18 04/30/18 Tramadol HCl [Ultram] 50 mg PO BID 04/30/18 04/30/18 [id number] 2 GM IN NS [Rocephin 2 2 gm IVPB DAILY 04/30/18 04/30/18 gm IVPB] Review of Systems - Physician Review All systems were reviewed & negative as marked: Yes - Review of Systems Constitutional: Other (Elevated Cr.). absent: Fevers, Night Sweats Respiratory: absent: SOB Cardiovascular: absent: Chest Pain Gastrointestinal: absent: Diarrhea, Nausea, Vomiting Musculoskeletal: absent: Back Pain, Neck Pain Neurological: absent: Headache, Dizziness, Focal Weakness Physical Exam Vital Signs Reviewed: Yes Vital Signs Temp Pulse Resp BP Pulse Ox 04/30/18 16:56 98.2 F 95 H 20 164/87 H 99 04/30/18 16:38 98.6 F 86 18 118/76 99 Temperature: Afebrile Blood Pressure: Normal Pulse: Regular Respiratory Rate: Normal Appearance: Positive for: Non-Toxic, Comfortable, Ill-Appearing - Systems Exam Head: Present: Atraumatic, Normocephalic Pupils: Present: PERRL Extroacular Muscles: Present: EOMI Conjunctiva: Present: Normal Mouth: Present: Moist Mucous Membranes Neck: Present: Normal Range of Motion Respiratory/Chest: Present: Clear to Auscultation, Good Air Exchange. No: Respiratory Distress, Accessory Muscle Use Cardiovascular: Present: Regular Rate and Rhythm, Normal S1, S2. No: Murmurs Abdomen: Present: Distention (+stomach is distended but non-tender), Normal Bowel Sounds, Other (Soft). No: Tenderness, Peritoneal Signs, Rebound, Guarding, McBurney's Point Tender, Rovsing's Sign Present Back: Present: Normal Inspection Upper Extremity: Present: Other (+IV access in left arm) Lower Extremity: Present: Other (+dressing on bilateral lower extremity) Neurological: Present: GCS=15, CN II-XII Intact, Speech Normal Skin: Present: Warm, Dry, Normal Color. No: Rashes Psychiatric: Present: Alert, Oriented x 3, Normal Insight, Normal Concentration Medical Decision Making ED Course and Treatment: 04/30/18 17:51 Impression: 82 year old Plan: -- EKG -- Labs -- COAGs -- Reassess and disposition Prior Visits: Notes and results from previous visits were reviewed. Progress Notes: EKG Sinus rhythm with PAC @ 94bpm. RBBB Chest xray IMPRESSION: No active disease. 04/30/18 17:[address] Garcia, results show patient's hemoglobin level was low at 6.9 which is comparable to the lab results done on 04/08/18. Type and cross will done for two units. Dr. Garcia has agreed for patient to be admitted. Consent obtained from the pt. Dr. Garcia requested Drs. Mercado and Ankit consult and it was placed. - Scribe Statement The provider has reviewed the documentation as recorded by the Scribe Marybeth Presley All medical record entries made by the Scribe were at my direction and personally dictated by me. I have reviewed the chart and agree that the record accurately reflects my personal performance of the history, physical exam, medical decision making, and the department course for this patient. I have also personally directed, reviewed, and agree with the discharge instructions and disposition. Disposition/Present on Arrival - Present on Arrival Any Indicators Present on Arrival: No History of DVT/PE: No History of Uncontrolled Diabetes: No Urinary Catheter: No History of Decub. Ulcer: No History Surgical Site Infection Following: None - Disposition Have Diagnosis and Disposition been Completed?: Yes Diagnosis: Anemia, Renal failure Disposition: HOSPITALIZED Disposition Time: 18:20 Patient Plan: Admission Patient Problems: Current Active Problems Problem Status Onset Anemia Acute Renal failure Acute Condition: FAIR
[2018-04-30 17:50] LABS: GRAN % 62.7 % (50.0-68.0); HEMOGLOBIN 6.9 g/dL (14.0-18.0); MEAN CELL VOLUME 93.1 fl (80.0-105.0); MEAN CORPUSCULAR HEMOGLOBIN 29.9 pg (25.0-35.0); MEAN CORPUSCULAR HGB CONC 32.1 g/dl (31.0-37.0); MEAN PLATELET VOLUME 10.2 fl (7.0-11.0); RED CELL DISTRIBUTION WIDTH 14.3 % (11.5-14.5)
[2018-04-30 17:51] LABS: BASO % 0.1 % (0.0-3.0); EOS # 0.7 (0.0-0.7); EOS % 8.7 % (1.5-5.0); GRAN # 4.79 (1.4-6.5); LYMPH # 1.4 (1.2-3.4); LYMPH % 18.5 % (22.0-35.0); MONO # 0.8 (0.1-0.6)
[2018-04-30 17:52] LABS: BASO # 0.01 K/mm3 (0.0-2.0)
[2018-04-30 17:53] LABS: INR 2.07; PARTIAL THROMBOPLASTIN TIME 36.3 Seconds (25.1-36.5)
[2018-04-30 18:10] LABS: TROPONIN I 0.03 ng/mL
[2018-04-30 18:12] LABS: ALB/GLOB RATIO 0.8 (1.1-1.8); ALBUMIN 3.3 g/dL (3.0-4.8); CALCIUM 8.4 mg/dL (8.4-10.5)
--- NOTE | 2018-04-30 18:41 | RAD ---
Date of service: 04/30/2018 HISTORY: admission COMPARISON: 02/28/2018 FINDINGS: LUNGS: No active pulmonary disease. PLEURA: No significant pleural effusion identified, no pneumothorax apparent. CARDIOVASCULAR: No radiographic findings to suggest acute or significant cardiovascular disease. Atherosclerotic calcifications identified primarily aortic arch. OSSEOUS STRUCTURES: No significant abnormalities. VISUALIZED UPPER ABDOMEN: Normal. OTHER FINDINGS: None. IMPRESSION: No active disease.
--- NOTE | 2018-04-30 20:07 | CARD ---
APPROVED REPORT Date of service: 04/30/2018 EKG Measurement Heart [id number] <Conclusion> Sinus rhythm with premature atrial complexes Right bundle branch block Abnormal ECG
--- NOTE | 2018-04-30 20:54 | HP ---
DATE OF EXAM: 04/30/2018 HISTORY OF PRESENT ILLNESS: The patient is an 82-year-old known to me from multiple previous admissions and office practice. The patient was being followed by Dr. Pham, who was following his right leg wound. He had skin grafting done, but the wound was infected. He was growing Serratia marcescens and Proteus mirabilis that was not sensitive to p.o. medications, so Dr. Pham contacted Dr. Melendez, who started the patient on vancomycin and his blood work was being monitored. He was found to have high creatinine, so he was referred. Upon learning that his creatinine is growing up, he was referred to emergency room for further evaluation. The patient denies any chest pain. No shortness of breath. Complained of generalized weakness. PAST MEDICAL HISTORY: Significant for: 1. Hypertension. 2. History of COPD. 3. Peripheral vascular disease. 4. History of gastritis. 5. History of right leg DVT. 6. Peripheral vascular disease. SOCIAL HISTORY: He lives by himself. History of heavy smoking and alcohol abuse in the past. PHYSICAL EXAMINATION GENERAL: He is awake, alert, and able to communicate. VITAL SIGNS: He is afebrile, pulse 93, respirations 20, blood pressure 166/80. LUNGS: Bilateral diffusely decreased breath sounds. HEART: S1 and S2 audible. ABDOMEN: Soft, nontender. No rebound. No guarding. NEUROLOGICAL: He is awake and alert, oriented and communicative. LABORATORY DATA: His right leg is in the dressing. WBC 7.6, hemoglobin 6.9, hematocrit 21.5, platelets 178. PT 24. INR 2.07. Chemistry: Sodium 138, potassium 4.8, chloride 111, CO2 19, BUN 33, creatinine 5.1, blood sugar of 86. LFTs are within normal limits. ASSESSMENT: 1. 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 2. Right leg ulcer status post skin grafting. 3. Peripheral vascular disease status post angioplasty. 4. Hypertension. 5. Hyperlipidemia. 6. Anemia. 7. History of deep venous thrombosis. PLAN: The patient is being admitted on med/surg floor. We will transfuse him on packed RBCs. Dr. Leach to follow the patient and Dr. Lucho Melendez also to follow from infectious point of view. We will also request Nephrology evaluation. We will follow up CBC and CMP in a.m. We will start him on IV fluids. Aquilino Garcia MD
[2018-04-30 21:58] VITALS: BMI 18.4
[2018-05-01] MEDS: Dextrose 5%/0.45% NS 1,000 ML IV SCH ×2 (02:02→04:30)
--- NOTE | 2018-05-01 02:38 | CP.PCM.PCO ---
Physician Communication Note - Physician Communication Note Physician Communication Note: Patient on Vancomycin and Ceftriaxone at home. stopped due to Creatinine 4
[2018-05-01 07:25] LABS: INR 1.77; PROTHROMBIN TIME 20.6 SECONDS (9.4-12.5)
[2018-05-01 07:38] LABS: ALB/GLOB RATIO 0.7 (1.1-1.8); ALBUMIN 2.7 g/dL (3.0-4.8); CALCIUM 8.4 mg/dL (8.4-10.5)
[2018-05-01 08:37] LABS: EOS % 10.4 % (1.5-5.0); GRAN # 4.05 (1.4-6.5); LYMPH # 1.2 (1.2-3.4); MEAN CORPUSCULAR HEMOGLOBIN 29.9 pg (25.0-35.0); MEAN CORPUSCULAR HGB CONC 33.5 g/dl (31.0-37.0); MEAN PLATELET VOLUME 9.5 fl (7.0-11.0); MONO # 0.9 (0.1-0.6); MONO % 12.6 % (1.0-6.0); RBC 3.11 10^6/uL (3.5-6.1); RED CELL DISTRIBUTION WIDTH 14.1 % (11.5-14.5); WHITE BLOOD COUNT 6.9 10^3/uL (4.5-11.0)
[2018-05-01 08:38] LABS: EOS # 0.7 (0.0-0.7); HEMOGLOBIN 9.3 g/dL (14.0-18.0); MEAN CELL VOLUME 89.4 fl (80.0-105.0)
--- NOTE | 2018-05-01 09:30 | CP.PCM.CON ---
<ChavezRuss - Last Filed: 05/01/18 09:26> History of Present Illness - History of Present Illness History of Present Illness: Podiatry consult note for Dr. Pham 82 yo male with pmhx of hypertension, COPD, gastritis and history of DVT presented to the ED yesterday for anemia and renal failure. Patient has a wound on the lateral aspect of the leg that has been present for about 10 weeks. States that he had had surgery with Dr. Pham and his wound was debrided and cultured. States that it is painful but does not bother him throughout the day. He is seen in the wound center for care and management of his right leg wound. Denies N/V/F/C/SOB/CP today and has no other pedal complaints today. PMHx - hypertension, COPD, gastritis and history of DVT PSHx - right lower leg surgical wound debridement All - NKDA Past Patient History - Infectious Disease Hx of Infectious Diseases: None - Tetanus Immunizations Tetanus Immunization: Unknown - Past Social History Smoking Status: Never Smoked - CARDIAC Hx Cardiac Disorders: Yes Hx Congestive Heart Failure: Yes Hx Hypercholesterolemia: Yes Hx Hypertension: Yes Hx Peripheral Vascular Disease: Yes - PULMONARY Hx Respiratory Disorders: Yes Hx Chronic Obstructive Pulmonary Disease (COPD): Yes - NEUROLOGICAL Hx Neurological Disorder: No - HEENT Hx HEENT Problems: Yes Hx Cataracts: Yes - RENAL Hx Chronic Kidney Disease: Yes Hx Renal Failure: Yes - ENDOCRINE/METABOLIC Hx Endocrine Disorders: No - HEMATOLOGICAL/ONCOLOGICAL Hx Anemia: Yes - INTEGUMENTARY Hx Dermatological Problems: Yes Hx Cellulitis: Yes - MUSCULOSKELETAL/RHEUMATOLOGICAL Hx Musculoskeletal Disorders: Yes Hx Arthritis: Yes Hx Falls: No - GASTROINTESTINAL Hx Gastrointestinal Disorders: Yes Hx Gastroesophageal Reflux: Yes - GENITOURINARY/GYNECOLOGICAL Hx Genitourinary Disorders: Yes Hx Prostate Problems: Yes - PSYCHIATRIC Hx Psychophysiologic Disorder: Yes Hx Depression: Yes Hx Substance Use: No - SURGICAL HISTORY Other/Comment: s/p skin graft to RT lower extremity - ANESTHESIA Hx Anesthesia Reactions: No Hx Malignant Hyperthermia: No Meds Allergies/Adverse Reactions: Allergies Allergy/AdvReac Type Severity Reaction Status Date / Time No Known Allergies Allergy Verified 04/08/18 10:56 - Medications Medications: Current Medications Amlodipine Besylate (Norvasc) 10 mg PO DAILY [facility] Atorvastatin Calcium (Lipitor) 10 mg PO DIN [facility] Dextrose/Sodium Chloride (Dextrose 5%/0.45% Ns 1000 Ml) 1,000 mls @ 100 mls/hr IV .Q10H [facility] Last Admin: 05/01/18 04:30 Dose: Not Given Ceftriaxone Sodium (Rocephin 1 Gram Ivpb) 1 gm in 100 mls @ 100 mls/hr IVPB DAILY [facility]; Protocol Tramadol HCl (Ultram) 50 mg PO BID [facility] Warfarin Sodium (Coumadin) 5 mg PO DAILY [facility]; Protocol Physical Exam - Constitutional Appears: Well, Non-toxic, No Acute Distress - Head Exam Head Exam: ATRAUMATIC, NORMOCEPHALIC - Extremities Exam Additional comments: RLE focused exam Vasc: DP/PT 2/4. Skin temperature warm to warm from proximal to distal WNL. Cap refill < 3 seconds to all digits. No edema noted to right leg at this time Neuro: Epicritic and protective sensation grossly intact b/l Derm: An open wound at the surgical site of debridement and graft measure about 20cm X 4 cm X 0.3 cm. No pus, no purulent discharge or drainage, no clinical signs of infection. minimal periwound erythema. MSK: Minimal POP at the periwound site. ROM WNL at all major joints. Muscle power intact 5/5 in all major muscle groups. No other gross deformities noted - Neurological Exam Neurological exam: Alert, Oriented x3 - Psychiatric Exam Psychiatric exam: Normal Affect, Normal Mood Results - Vital Signs Recent Vital Signs: Last Vital Signs Temp 97.8 F 05/01/18 06:00 Pulse 76 05/01/18 06:00 Resp 18 05/01/18 06:00 BP 133/50 L 05/01/18 06:00 Pulse Ox 100 05/01/18 06:00 - Labs Result Diagrams: 05/01/18 07:00 05/01/18 07:00 Labs: Laboratory Results - last 24 hr 04/30/18 04/30/18 04/30/18 17:39 17:39 17:39 WBC 7.6 RBC 2.31 L Hgb 6.9 L* D Hct 21.5 L MCV 93.1 D MCH 29.9 MCHC 32.1 RDW 14.3 Plt Count 178 MPV 10.2 Gran % 62.7 Lymph % (Auto) 18.5 L Emm[place] % (Auto) 10.0 H Eos % (Auto) 8.7 H Baso % (Auto) 0.1 Gran # 4.79 Lymph # (Auto) 1.4 Emmet # (Auto) 0.8 H Eos # (Auto) 0.7 Baso # (Auto) 0.01 PT 24.0 H INR 2.07 APTT 36.3 Sodium 138 Potassium 4.8 Chloride 111 H Carbon Dioxide 19 L Anion Gap 13 BUN 33 H Creatinine 5.1 H Est GFR ( Amer) 13 Est GFR (Non-Af Amer) 11 Random Glucose 86 Calcium 8.4 Total Bilirubin 0.2 AST 20 ALT 11 Alkaline Phosphatase 93 Lactate Dehydrogenase 524 Total Creatine Kinase 65 Troponin I 0.03 D Total Protein 7.6 Albumin 3.3 Globulin 4.3 Albumin/Globulin Ratio 0.8 L Blood Type Antibody Screen Crossmatch BBK History Checked 04/30/18 05/01/18 05/01/18 18:27 07:00 07:00 WBC 6.9 RBC 3.11 L Hgb 9.3 L D Hct 27.8 L MCV 89.4 D MCH 29.9 MCHC 33.5 RDW 14.1 Plt Count 139 MPV 9.5 Gran % 59.0 Lymph % (Auto) 18.0 L Emm[place] % (Auto) 12.6 H Eos % (Auto) 10.4 H Baso % (Auto) 0.0 Gran # 4.05 Lymph # (Auto) 1.2 Emmet # (Auto) 0.9 H Eos # (Auto) 0.7 Baso # (Auto) 0.00 PT INR APTT Sodium 139 Potassium 4.7 Chloride 113 H Carbon Dioxide 20 L Anion Gap 10 BUN 34 H Creatinine 4.8 H Est GFR ( Amer) 14 Est GFR (Non-Af Amer) 12 Random Glucose 114 H Calcium 8.4 Total Bilirubin 0.3 AST 16 L ALT 21 Alkaline Phosphatase 77 Lactate Dehydrogenase Total Creatine Kinase Troponin I Total Protein 6.4 Albumin 2.7 L Globulin 3.7 Albumin/Globulin Ratio 0.7 L Blood Type A POSITIVE Antibody Screen Negative Crossmatch See Detail BBK History Checked Patient has bt 05/01/18 07:00 WBC RBC Hgb Hct MCV MCH MCHC RDW Plt Count MPV Gran % Lymph % (Auto) Emmet % (Auto) Eos % (Auto) Baso % (Auto) Gran # Lymph # (Auto) Emmet # (Auto) Eos # (Auto) Baso # (Auto) PT 20.6 H INR 1.77 APTT Sodium Potassium Chloride Carbon Dioxide Anion Gap BUN Creatinine Est GFR ( Amer) Est GFR (Non-Af Amer) Random Glucose Calcium Total Bilirubin AST ALT Alkaline Phosphatase Lactate Dehydrogenase Total Creatine Kinase Troponin I Total Protein Albumin Globulin Albumin/Globulin Ratio Blood Type Antibody Screen Crossmatch BBK History Checked Assessment & Plan - Assessment and Plan (Free Text) Assessment: 82M with pmhx of hypertension, COPD, gastritis and history of DVT evaluated for right lower leg surgically debrided and grafted wound Plan: Patient seen and evaluated at bedside with Dr. Pham Afebrile, absent leukocytosis Dressing taken down, wound cleansed sterile saline, dressed with adaptic and DSD Wound cx taken - f/u results Continue management per medicine Will continue to follow the patient while in house Thank you for the consult - Date & Time Date: 05/01/18 Time: 09:30 <Van Pham - Last Filed: 05/01/18 11:42> Meds - Medications Medications: Current Medications Amlodipine Besylate (Norvasc) 10 mg PO DAILY [facility] Atorvastatin Calcium (Lipitor) 10 mg PO DIN [facility] Ferrous Gluconate (Fergon) 324 mg PO TID [facility] Dextrose/Sodium Chloride (Dextrose 5%/0.45% Ns 1000 Ml) 1,000 mls @ 100 mls/hr IV .Q10H [facility] Last Admin: 05/01/18 04:30 Dose: Not Given Ceftriaxone Sodium (Rocephin 1 Gram Ivpb) 1 gm in 100 mls @ 100 mls/hr IVPB DAILY [facility]; Protocol Sodium Bicarbonate (Sodium Bicarbonate Tab) 1,300 mg PO BID [facility] Tramadol HCl (Ultram) 50 mg PO TID PRN PRN Reason: Pain, moderate (4-7) Vitamin B Complex/Vit C/Folic Acid (Nephro-Rober) 1 tab PO 0800 [facility] Warfarin Sodium (Coumadin) 5 mg PO DAILY [facility]; Protocol Results - Vital Signs Recent Vital Signs: Last Vital Signs Temp 97.8 F 05/01/18 06:00 Pulse 85 05/01/18 10:00 Resp 18 05/01/18 06:00 BP 133/50 L 05/01/18 06:00 Pulse Ox 100 05/01/18 06:00 - Labs Result Diagrams: 05/01/18 10:30 05/01/18 07:00 Labs: Laboratory Results - last 24 hr 04/30/18 04/30/18 04/30/18 17:39 17:39 17:39 WBC 7.6 RBC 2.31 L Hgb 6.9 L* D Hct 21.5 L MCV 93.1 D MCH 29.9 MCHC 32.1 RDW 14.3 Plt Count 178 MPV 10.2 Gran % 62.7 Lymph % (Auto) 18.5 L Emmet % (Auto) 10.0 H Eos % (Auto) 8.7 H Baso % (Auto) 0.1 Gran # 4.79 Lymph # (Auto) 1.4 Emmet # (Auto) 0.8 H Eos # (Auto) 0.7 Baso # (Auto) 0.01 PT 24.0 H INR 2.07 APTT 36.3 Sodium 138 Potassium 4.8 Chloride 111 H Carbon Dioxide 19 L Anion Gap 13 BUN 33 H Creatinine 5.1 H Est GFR ( Amer) 13 Est GFR (Non-Af Amer) 11 Random Glucose 86 Calcium 8.4 Iron TIBC % Saturation Total Bilirubin 0.2 AST 20 ALT 11 Alkaline Phosphatase 93 Lactate Dehydrogenase 524 Total Creatine Kinase 65 Troponin I 0.03 D Total Protein 7.6 Albumin 3.3 Globulin 4.3 Albumin/Globulin Ratio 0.8 L Blood Type Antibody Screen Crossmatch BBK History Checked 04/30/18 05/01/18 05/01/18 18:27 07:00 07:00 WBC 6.9 RBC 3.11 L Hgb 9.3 L D Hct 27.8 L MCV 89.4 D MCH 29.9 MCHC 33.5 RDW 14.1 Plt Count 139 MPV 9.5 Gran % 59.0 Lymph % (Auto) 18.0 L Emmet % (Auto) 12.6 H Eos % (Auto) 10.4 H Baso % (Auto) 0.0 Gran # 4.05 Lymph # (Auto) 1.2 Emmet # (Auto) 0.9 H Eos # (Auto) 0.7 Baso # (Auto) 0.00 PT INR APTT Sodium 139 Potassium 4.7 Chloride 113 H Carbon Dioxide 20 L Anion Gap 10 BUN 34 H Creatinine 4.8 H Est GFR ( Amer) 14 Est GFR (Non-Af Amer) 12 Random Glucose 114 H Calcium 8.4 Iron TIBC % Saturation Total Bilirubin 0.3 AST 16 L ALT 21 Alkaline Phosphatase 77 Lactate Dehydrogenase Total Creatine Kinase Troponin I Total Protein 6.4 Albumin 2.7 L Globulin 3.7 Albumin/Globulin Ratio 0.7 L Blood Type A POSITIVE Antibody Screen Negative Crossmatch See Detail BBK History Checked Patient has bt 05/01/18 05/01/18 05/01/18 07:00 10:30 10:30 WBC 6.7 RBC 3.79 Hgb 11.5 L D Hct 33.8 L MCV 89.2 MCH 30.3 MCHC 34.0 RDW 14.5 Plt Count 160 MPV 9.9 Gran % 67.0 Lymph % (Auto) 17.5 L Emmet % (Auto) 6.7 H Eos % (Auto) 8.7 H Baso % (Auto) 0.1 Gran # 4.47 Lymph # (Auto) 1.2 Emmet # (Auto) 0.5 Eos # (Auto) 0.6 Baso # (Auto) 0.01 PT 20.6 H INR 1.77 APTT Sodium Potassium Chloride Carbon Dioxide Anion Gap BUN Creatinine Est GFR ( Amer) Est GFR (Non-Af Amer) Random Glucose Calcium Iron 132 TIBC 238 L % Saturation 55 Total Bilirubin AST ALT Alkaline Phosphatase Lactate Dehydrogenase Total Creatine Kinase Troponin I Total Protein Albumin Globulin Albumin/Globulin Ratio Blood Type Antibody Screen Crossmatch BBK History Checked Attending/Attestation - Attestation I have personally seen and examined this patient.: Yes I have fully participated in the care of the patient.: Yes I have reviewed all pertinent clinical information: Yes
[2018-05-01] MEDS ORDERED: CEFTRIAXONE IVPB SCH (10:00)
[2018-05-01] MEDS ORDERED: NS IVPB SCH (10:00)
[2018-05-01] MEDS ORDERED: cefTRIAXone 2 gm in NS 100ml IVPB SCH (10:00)
[2018-05-01 10:54] LABS: IRON 132 ug/dL (45-180)
[2018-05-01 11:03] LABS: % IRON SATURATION 55 % (20-55); TOTAL IRON BINDING CAPACITY 238 ug/dL (261-462)
[2018-05-01 11:22] LABS: LYMPH % 17.5 % (22.0-35.0); MEAN CELL VOLUME 89.2 fl (80.0-105.0); MEAN CORPUSCULAR HEMOGLOBIN 30.3 pg (25.0-35.0); MEAN PLATELET VOLUME 9.9 fl (7.0-11.0); RBC 3.79 10^6/uL (3.5-6.1); RED CELL DISTRIBUTION WIDTH 14.5 % (11.5-14.5); WHITE BLOOD COUNT 6.7 10^3/uL (4.5-11.0)
[2018-05-01 11:23] LABS: BASO # 0.01 K/mm3 (0.0-2.0); BASO % 0.1 % (0.0-3.0); EOS # 0.6 (0.0-0.7); EOS % 8.7 % (1.5-5.0); GRAN # 4.47 (1.4-6.5); HEMOGLOBIN 11.5 g/dL (14.0-18.0); LYMPH # 1.2 (1.2-3.4); MONO # 0.5 (0.1-0.6); MONO % 6.7 % (1.0-6.0)
[2018-05-01] MEDS: cefTRIAXone 1 gm 1 GM/100 ML BAG IVPB SCH (11:51)
--- NOTE | 2018-05-01 14:17 | PN ---
DATE: 05/01/2018 SUBJECTIVE: The patient is an 82-year-old, seen and examined. Doing well. He says he feels well. Has right leg swelling, much better now. PHYSICAL EXAMINATION: VITAL SIGNS: He is afebrile. Pulse 76, respirations 18, blood pressure 133/50. LUNGS: Bilateral fair air flow. No rhonchi or crackles. HEART: S1, S2 audible. ABDOMEN: Soft, nontender. No rebound, no guarding. NEUROLOGIC: The patient is awake and alert, able to communicate. EXTREMITIES: Right leg is in a dressing. Swelling has improved. LABORATORY DATA: WBC 6.9, hemoglobin 9.3, hematocrit 27.8, platelets 138. Chemistry: Sodium 139, potassium 4.7, chloride 113, CO2 of 20, BUN 34, creatinine 4.8, blood sugar of 114, TIBC 238. ASSESSMENT: 1. [id number] renal failure. 2. Peripheral vascular disease, status post angioplasty. 3. History of right leg deep vein thrombosis. 4. History of alcohol abuse. 5. Chronic obstructive pulmonary disease. PLAN: The patient is currently on IV fluid. The Podiatry team is following the patient's leg wound. We will continue him on statin, continue him on IV fluid, continue him on his Coumadin. His lisinopril has been discontinued until his kidney functions are fair. He is on Rocephin. We will follow up his CBC, CMP. Nephrology's input noted and appreciated. Workup has been ordered. Follow up his creatinine and CMP in a.m. Aquilino Garcia MD
[2018-05-01 16:38] LABS: COMPLEMENT C4 14.6 mg/dL (14.0-44.0)
--- NOTE | 2018-05-01 16:41 | CP.PCM.CON ---
History of Present Illness - History of Present Illness History of Present Illness: Nephrology Consultation Note: Assessment: Stable Acute Kidney Injury (N17.9) r/o obstruction. ? AIN due to abx as also with peripheral eosinophilia Hypertensive Chronic Kidney Disease (I12.9) Chronic Kidney Disease (N18.3) Stage 3 with ? mg proteinuria (R80.9) acute on chronic anemia COPD, DVT, hx of Etoh and smoking hypoalbuminemia, metabolic acidosis Plan No acute need for renal replacement therapy at this time. Hypertension control with meds as ordered. Maintain hemodynamics stable. Avoid hypotension. Patient not on ACEI/ARB due to recent HARSH. added labetalol Monitor Input/Output, daily weights and renal function with basic metabolic panel d/c IVF added iron, MVI and sodium bicarb. plan to add JAMIE if Hb <10. Check urine analysis, spot protein/creatinine, albumin/creatinine ratio, urine for eosinophils.renal and bladder sonogram Check GN work up as C3, C4, MAULIK, Anti dsDNA, ANCA (MPO and CT-3), HIV/Hep B and Hep C serology (along with rheumatoid factor and serum cryoglobulin levels [to be transported at room temperature] Anemia work up with TSAT/Ferritin/Vitamin B12/folate, serum protein electrophoresis with immunofixation, serum free light chain assay (Marrowbone/Lambda) Check for 25-OH vitamin D, iPTH, phosphorus level. Dose meds/antibiotics for reduced GFR. Avoid fleets enema/magnesium based laxatives. Avoid nephrotoxins/NSAIDs/ iodinated contrast (unless needed emergently) Glycemic control Further work up/management as per primary team Thanks for allowing me to participate in care of your patient. Will follow patient with you. Please call if any Qs. had d/w team Dr Froilan Spears Office: [phone] Chief Complaint; leg swelling Reason for consult: Acute Kidney Injury HPI: Pt is a 82 M with hx of HTN, COPD, DVT on coumadin, etoh/smoker (quit 6 months ago), anemia, CKD 3 with baseline cr 1.4-1.5 presented with complaints of abnormal kidney fxn and [facility] Denies OTC/herbal meds or NSAIDs No recent iodinated contrast exposure. No obvious episodes of low BP. pt was treated with abx recently as vanco and cephalosporins pt not aware about kidney disease in past. feels in usual health except rt leg swelling ROS: Cardiovascular: No chest pain. Pulmonary: No shortness of breath Gastrointestinal: denies abdominal pain No nausea. No vomiting. Genitourinary: No pain while urinating. Denies blood in urine. All other negative except as mentioned in HPI Physical Examination: General Appearance: Comfortable, in no acute respiratory distress, co-operative . somewhat cachexic Vitals reviewed and noted as below Head; Atraumatic, normocephalic ENT: no ulcers no thrush. Tongue is midline. Oropharynx: no rash or ulcers. EYES: Pupils are equal, round and reactive to light accommodation. Eye muscles and extraocular movement intact. Sclera is anicteric. Neck; supple no lymphadenopathy, no thyromegaly or bruit Lungs: Normal respiratory rate/effort. Breath sounds bilateral equal and clear Heart: Normal rate. s1s2 normal. No rub or gallop. Extremities: no edema. No varicose veins. RLE swelling, dressing + Neurological: Patient is alert, awake and oriented to person, place and time. No focal deficit. Strength bilateral appropriate and equal Skin: Warm and dry. Normal turgor. No rash. Palpitation: Normal elasticity for age Abdomen: Abdomen is soft. Bowel sounds +. There is no abdominal tenderness, no guarding/rigidity ? hepatomegaly Psych: lack insight and normal affect/mood MSK: no joint tenderness or swelling. Digits and nails normal, no deformity : kidney not palpable ? distended bladder Labs/imaging reviewed. Past medical history, past surgical history, family history, social history, allergy reviewed and noted as below Family hx: no hx of CKD. Rest non-contributory Past Patient History - Infectious Disease Hx of Infectious Diseases: None - Tetanus Immunizations Tetanus Immunization: Unknown - Past Social History Smoking Status: Never Smoked - CARDIAC Hx Cardiac Disorders: Yes Hx Congestive Heart Failure: Yes Hx Hypercholesterolemia: Yes Hx Hypertension: Yes Hx Peripheral Vascular Disease: Yes - PULMONARY Hx Respiratory Disorders: Yes Hx Chronic Obstructive Pulmonary Disease (COPD): Yes - NEUROLOGICAL Hx Neurological Disorder: No - HEENT Hx HEENT Problems: Yes Hx Cataracts: Yes - RENAL Hx Chronic Kidney Disease: Yes Hx Renal Failure: Yes - ENDOCRINE/METABOLIC Hx Endocrine Disorders: No - HEMATOLOGICAL/ONCOLOGICAL Hx Anemia: Yes - INTEGUMENTARY Hx Dermatological Problems: Yes Hx Cellulitis: Yes - MUSCULOSKELETAL/RHEUMATOLOGICAL Hx Musculoskeletal Disorders: Yes Hx Arthritis: Yes Hx Falls: No - GASTROINTESTINAL Hx Gastrointestinal Disorders: Yes Hx Gastroesophageal Reflux: Yes - GENITOURINARY/GYNECOLOGICAL Hx Genitourinary Disorders: Yes Hx Prostate Problems: Yes - PSYCHIATRIC Hx Psychophysiologic Disorder: Yes Hx Depression: Yes Hx Substance Use: No - SURGICAL HISTORY Other/Comment: s/p skin graft to RT lower extremity - ANESTHESIA Hx Anesthesia Reactions: No Hx Malignant Hyperthermia: No Meds Allergies/Adverse Reactions: Allergies Allergy/AdvReac Type Severity Reaction Status Date / Time No Known Allergies Allergy Verified 04/08/18 10:56 - Medications Medications: Current Medications Amlodipine Besylate (Norvasc) 10 mg PO DAILY [facility] Last Admin: 05/01/18 11:51 Dose: 10 mg Atorvastatin Calcium (Lipitor) 10 mg PO DIN [facility] Ferrous Gluconate (Fergon) 324 mg PO TID [facility] Last Admin: 05/01/18 15:18 Dose: 324 mg Dextrose/Sodium Chloride (Dextrose 5%/0.45% Ns 1000 Ml) 1,000 mls @ 100 mls/hr IV .Q10H [facility] Last Admin: 05/01/18 04:30 Dose: Not Given Ceftriaxone Sodium (Rocephin 1 Gram Ivpb) 1 gm in 100 mls @ 100 mls/hr IVPB DAILY [facility]; Protocol Last Admin: 05/01/18 11:51 Dose: 100 mls/hr Sodium Bicarbonate (Sodium Bicarbonate Tab) 1,300 mg PO BID [facility] Last Admin: 05/01/18 11:50 Dose: 1,300 mg Tramadol HCl (Ultram) 50 mg PO TID PRN PRN Reason: Pain, moderate (4-7) Last Admin: 05/01/18 11:51 Dose: 50 mg Vitamin B Complex/Vit C/Folic Acid (Nephro-Rober) 1 tab PO 0800 [facility] Warfarin Sodium (Coumadin) 5 mg PO DAILY [facility]; Protocol Last Admin: 05/01/18 11:50 Dose: 5 mg Results - Vital Signs Recent Vital Signs: Last Vital Signs Temp 97.4 F L 05/01/18 12:00 Pulse 75 05/01/18 14:00 Resp 18 05/01/18 12:00 BP 175/81 H 05/01/18 12:00 Pulse Ox 100 05/01/18 06:00 - Labs Result Diagrams: 05/01/18 10:30 05/01/18 07:00 Labs: Laboratory Results - last 24 hr 04/30/18 04/30/18 04/30/18 17:39 17:39 17:39 WBC 7.6 RBC 2.31 L Hgb 6.9 L* D Hct 21.5 L MCV 93.1 D MCH 29.9 MCHC 32.1 RDW 14.3 Plt Count 178 MPV 10.2 Gran % 62.7 Lymph % (Auto) 18.5 L [place] % (Auto) 10.0 H Eos % (Auto) 8.7 H Baso % (Auto) 0.1 Gran # 4.79 Lymph # (Auto) 1.4 [place] # (Auto) 0.8 H Eos # (Auto) 0.7 Baso # (Auto) 0.01 PT 24.0 H INR 2.07 APTT 36.3 Sodium 138 Potassium 4.8 Chloride 111 H Carbon Dioxide 19 L Anion Gap 13 BUN 33 H Creatinine 5.1 H Est GFR ( Amer) 13 Est GFR (Non-Af Amer) 11 Random Glucose 86 Calcium 8.4 Iron TIBC % Saturation Total Bilirubin 0.2 AST 20 ALT 11 Alkaline Phosphatase 93 Lactate Dehydrogenase 524 Total Creatine Kinase 65 Troponin I 0.03 D Total Protein 7.6 Albumin 3.3 Globulin 4.3 Albumin/Globulin Ratio 0.8 L Blood Type Antibody Screen Crossmatch [facility] History Checked 04/30/18 05/01/18 05/01/18 18:27 07:00 07:00 WBC 6.9 RBC 3.11 L Hgb 9.3 L D Hct 27.8 L MCV 89.4 D MCH 29.9 MCHC 33.5 RDW 14.1 Plt Count 139 MPV 9.5 Gran % 59.0 Lymph % (Auto) 18.0 L [place] % (Auto) 12.6 H Eos % (Auto) 10.4 H Baso % (Auto) 0.0 Gran # 4.05 Lymph # (Auto) 1.2 [place] # (Auto) 0.9 H Eos # (Auto) 0.7 Baso # (Auto) 0.00 PT INR APTT Sodium 139 Potassium 4.7 Chloride 113 H Carbon Dioxide 20 L Anion Gap 10 BUN 34 H Creatinine 4.8 H Est GFR ( Amer) 14 Est GFR (Non-Af Amer) 12 Random Glucose 114 H Calcium 8.4 Iron TIBC % Saturation Total Bilirubin 0.3 AST 16 L ALT 21 Alkaline Phosphatase 77 Lactate Dehydrogenase Total Creatine Kinase Troponin I Total Protein 6.4 Albumin 2.7 L Globulin 3.7 Albumin/Globulin Ratio 0.7 L Blood Type A POSITIVE Antibody Screen Negative Crossmatch See Detail BBK History Checked Patient has bt 05/01/18 05/01/18 05/01/18 07:00 10:30 10:30 WBC 6.7 RBC 3.79 Hgb 11.5 L D Hct 33.8 L MCV 89.2 MCH 30.3 MCHC 34.0 RDW 14.5 Plt Count 160 MPV 9.9 Gran % 67.0 Lymph % (Auto) 17.5 L [place] % (Auto) 6.7 H Eos % (Auto) 8.7 H Baso % (Auto) 0.1 Gran # 4.47 Lymph # (Auto) 1.2 [place] # (Auto) 0.5 Eos # (Auto) 0.6 Baso # (Auto) 0.01 PT 20.6 H INR 1.77 APTT Sodium Potassium Chloride Carbon Dioxide Anion Gap BUN Creatinine Est GFR ( Amer) Est GFR (Non-Af Amer) Random Glucose Calcium Iron 132 TIBC 238 L % Saturation 55 Total Bilirubin AST ALT Alkaline Phosphatase Lactate Dehydrogenase Total Creatine Kinase Troponin I Total Protein Albumin Globulin Albumin/Globulin Ratio Blood Type Antibody Screen Crossmatch BBK History Checked
[2018-05-01 17:10] LABS: FERRITIN 78.4 ng/mL
--- NOTE | 2018-05-01 17:33 | US ---
Date of service: 05/01/2018 PROCEDURE: Ultrasound of the Kidneys HISTORY: HARSH COMPARISON: None available. TECHNIQUE: Sonogram of the kidneys. FINDINGS: RIGHT KIDNEY: Measures: 10.9 x 4.8 x 6.0 cm. Normal in size, contour and echogenicity. No stone, solid mass lesion or hydronephrosis visualized. Small exophytic cyst arising from the upper pole right kidney measuring 1.3 cm in greatest dimension. LEFT KIDNEY: Measures: 10.0 x 4.5 x 6.1 cm. Normal in size, contour and echogenicity. No stone, solid mass lesion or hydronephrosis visualized. There is a small approximately 9 mm calcification midpole left kidney.. No of hydronephrosis. OTHER FINDINGS: None. IMPRESSION: Small cyst upper pole right kidney. Small nonobstructing calcification midpole left kidney. No evidence of hydronephrosis.
--- NOTE | 2018-05-01 17:35 | US ---
Date of service: 05/01/2018 PROCEDURE: Urinary bladder ultrasound HISTORY: HARSH. please assess for PVR as well COMPARISON: Correlation made with CT scan of the abdomen pelvis 02/13/2018 TECHNIQUE: Transabdominal sonographic evaluation of the urinary bladder performed. FINDINGS: The prevoid bladder volume calculated at 326 cc and postvoid at 168 cc. Questionable minimal of irregularity along the bladder luminal surface. Prostate gland measures approximately 3.5 x 3.5 x 2.7 cm and exhibits heterogeneous echotexture IMPRESSION: Large postvoid residual.. Questionable minimal irregularity along the bladder luminal surface. Consider follow-up urologic consultation
[2018-05-01 17:41] LABS: FOLATE 9.9 ng/mL
--- NOTE | 2018-05-01 18:13 | CP.PCM.CON ---
History of Present Illness - History of Present Illness History of Present Illness: Infectious Disease Consultation: May 01, 2018 82 yo male seen in my office about 2 weeks ago. The patient with wound cultures that grew Serratia, Proteus, and MRSA from the past two months. Treatment with Home IV of Ceftriaxone and Vancomycin IV. Initial home chemistries showed a Creatinine of 1.7 (2 days into medication administration start). Labs repeats 5 days later showed a Vancomycin through of 79 and Creatinine of 2.9. Antibiotics were stopped and 1L of 1/s NS administered a day. Labs repeated 3 days later showed Creatinine of 4.0 and Vancomycin trough of 60. Informed the patient to come to [facility] for further evaluation and monitoring. The patient denies any problems or complaints but does admit now that his urinary frequency and volume had decreased. PMHx: HTN, COPD, Gastritis, DVT PSHx: debridement of the right lower leg. Followed in the wound care clinic at [facility] Allergies: NKDA Social Hx: No tobacco, EtOH, or illicit drug use. Active Medications Amlodipine Besylate (Norvasc) 10 mg PO DAILY [facility] Last Admin: 05/01/18 11:51 Dose: 10 mg Atorvastatin Calcium (Lipitor) 10 mg PO DIN [facility] Ferrous Gluconate (Fergon) 324 mg PO TID [facility] Last Admin: 05/01/18 15:18 Dose: 324 mg Dextrose/Sodium Chloride (Dextrose 5%/0.45% Ns 1000 Ml) 1,000 mls @ 100 mls/hr IV .Q10H [facility] Last Admin: 05/01/18 04:30 Dose: Not Given Ceftriaxone Sodium (Rocephin 1 Gram Ivpb) 1 gm in 100 mls @ 100 mls/hr IVPB DAILY [facility]; Protocol Last Admin: 05/01/18 11:51 Dose: 100 mls/hr Labetalol HCl (Trandate) 200 mg PO BID [facility] Sodium Bicarbonate (Sodium Bicarbonate Tab) 1,300 mg PO BID [facility] Last Admin: 05/01/18 11:50 Dose: 1,300 mg Thiamine HCl (Vitamin B1 Tab) 100 mg PO DAILY [facility] Tramadol HCl (Ultram) 50 mg PO TID PRN PRN Reason: Pain, moderate (4-7) Last Admin: 05/01/18 11:51 Dose: 50 mg Vitamin B Complex/Vit C/Folic Acid (Nephro-Rober) 1 tab PO 0800 [facility] Warfarin Sodium (Coumadin) 5 mg PO DAILY [facility]; Protocol Last Admin: 05/01/18 11:50 Dose: 5 mg Family Hx: none given ROS: No fevers, chills, nausea, vomiting, diarrhea, headaches, dizziness, chest pain, abdominal pain, melena, hematuria, hematemesis, hematochezia, depression, anxiety, vision loss, hearing loss, loss of consciousness. Past Patient History - Infectious Disease Hx of Infectious Diseases: None - Tetanus Immunizations Tetanus Immunization: Unknown - Past Social History Smoking Status: Never Smoked - CARDIAC Hx Cardiac Disorders: Yes Hx Congestive Heart Failure: Yes Hx Hypercholesterolemia: Yes Hx Hypertension: Yes Hx Peripheral Vascular Disease: Yes - PULMONARY Hx Respiratory Disorders: Yes Hx Chronic Obstructive Pulmonary Disease (COPD): Yes - NEUROLOGICAL Hx Neurological Disorder: No - HEENT Hx HEENT Problems: Yes Hx Cataracts: Yes - RENAL Hx Chronic Kidney Disease: Yes Hx Renal Failure: Yes - ENDOCRINE/METABOLIC Hx Endocrine Disorders: No - HEMATOLOGICAL/ONCOLOGICAL Hx Anemia: Yes - INTEGUMENTARY Hx Dermatological Problems: Yes Hx Cellulitis: Yes - MUSCULOSKELETAL/RHEUMATOLOGICAL Hx Musculoskeletal Disorders: Yes Hx Arthritis: Yes Hx Falls: No - GASTROINTESTINAL Hx Gastrointestinal Disorders: Yes Hx Gastroesophageal Reflux: Yes - GENITOURINARY/GYNECOLOGICAL Hx Genitourinary Disorders: Yes Hx Prostate Problems: Yes - PSYCHIATRIC Hx Psychophysiologic Disorder: Yes Hx Depression: Yes Hx Substance Use: No - SURGICAL HISTORY Other/Comment: s/p skin graft to RT lower extremity - ANESTHESIA Hx Anesthesia Reactions: No Hx Malignant Hyperthermia: No Meds Allergies/Adverse Reactions: Allergies Allergy/AdvReac Type Severity Reaction Status Date / Time No Known Allergies Allergy Verified 04/08/18 10:56 - Medications Medications: Current Medications Amlodipine Besylate (Norvasc) 10 mg PO DAILY [facility] Last Admin: 05/01/18 11:51 Dose: 10 mg Atorvastatin Calcium (Lipitor) 10 mg PO DIN [facility] Ferrous Gluconate (Fergon) 324 mg PO TID [facility] Last Admin: 05/01/18 15:18 Dose: 324 mg Dextrose/Sodium Chloride (Dextrose 5%/0.45% Ns 1000 Ml) 1,000 mls @ 100 mls/hr IV .Q10H [facility] Last Admin: 05/01/18 04:30 Dose: Not Given Ceftriaxone Sodium (Rocephin 1 Gram Ivpb) 1 gm in 100 mls @ 100 mls/hr IVPB DAILY [facility]; Protocol Last Admin: 05/01/18 11:51 Dose: 100 mls/hr Labetalol HCl (Trandate) 200 mg PO BID [facility] Sodium Bicarbonate (Sodium Bicarbonate Tab) 1,300 mg PO BID [facility] Last Admin: 05/01/18 11:50 Dose: 1,300 mg Thiamine HCl (Vitamin B1 Tab) 100 mg PO DAILY [facility] Tramadol HCl (Ultram) 50 mg PO TID PRN PRN Reason: Pain, moderate (4-7) Last Admin: 05/01/18 11:51 Dose: 50 mg Vitamin B Complex/Vit C/Folic Acid (Nephro-Rober) 1 tab PO 0800 [facility] Warfarin Sodium (Coumadin) 5 mg PO DAILY [facility]; Protocol Last Admin: 05/01/18 11:50 Dose: 5 mg Physical Exam - Constitutional Appears: Non-toxic, No Acute Distress, Chronically Ill - Head Exam Head Exam: ATRAUMATIC, NORMOCEPHALIC - Eye Exam Eye Exam: EOMI, PERRL Pupil Exam: NORMAL ACCOMODATION, PERRL - ENT Exam ENT Exam: Mucous Membranes Moist, Normal External Ear Exam, TM's Normal Bilaterally - Neck Exam Neck exam: Positive for: Full Rom, Normal Inspection - Respiratory Exam Respiratory Exam: Clear to Auscultation Bilateral, NORMAL BREATHING PATTERN. absent: Rales, Rhonchi, Wheezes - Cardiovascular Exam Cardiovascular Exam: REGULAR RHYTHM, RRR, +S1, +S2 - GI/Abdominal Exam GI & Abdominal Exam: Normal Bowel Sounds, Soft. absent: Distended, Tenderness - Extremities Exam Extremities exam: Positive for: full ROM. Negative for: joint swelling, pedal edema Additional comments: Vasc: DP/PT 2/4. Skin temperature warm to warm from proximal to distal WNL. Cap refill < 3 seconds to all digits. No edema noted to right leg at this time Neuro: Epicritic and protective sensation grossly intact b/l Derm: An open wound at the surgical site of debridement and graft measure about 20cm X 4 cm X 0.3 cm. No pus, no purulent discharge or drainage, no clinical signs of infection. minimal periwound erythema. MSK: Minimal POP at the periwound site. ROM WNL at all major joints. Muscle power intact 5/5 in all major muscle groups. No other gross deformities noted Wound site is improved compared to two weeks ago. Patient had at least plus swelling at home of bilateral lower extremities that started 4 days ago. - Neurological Exam Neurological exam: Alert, CN II-XII Intact, Oriented x3 - Skin Additional comments: As per leg exam. Results - Vital Signs Recent Vital Signs: Last Vital Signs Temp 97.4 F L 05/01/18 12:00 Pulse 75 05/01/18 14:00 Resp 18 05/01/18 12:00 BP 175/81 H 05/01/18 12:00 Pulse Ox 100 05/01/18 06:00 - Labs Result Diagrams: 05/01/18 10:30 05/01/18 07:00 Labs: Laboratory Results - last 24 hr 04/30/18 04/30/18 05/01/18 17:39 18:27 07:00 WBC RBC Hgb Hct MCV MCH MCHC RDW Plt Count MPV Gran % Lymph % (Auto) Catron % (Auto) Eos % (Auto) Baso % (Auto) Gran # Lymph # (Auto) Catron # (Auto) Eos # (Auto) Baso # (Auto) PT INR Sodium 138 139 Potassium 4.8 4.7 Chloride 111 H 113 H Carbon Dioxide 19 L 20 L Anion Gap 13 10 BUN 33 H 34 H Creatinine 5.1 H 4.8 H Est GFR ( Amer) 13 14 Est GFR (Non-Af Amer) 11 12 Random Glucose 86 114 H Calcium 8.4 8.4 Iron TIBC % Saturation Ferritin Total Bilirubin 0.2 0.3 AST 20 16 L ALT 11 21 Alkaline Phosphatase 93 77 Lactate Dehydrogenase 524 Total Creatine Kinase 65 Troponin I 0.03 D Total Protein 7.6 6.4 Albumin 3.3 2.7 L Globulin 4.3 3.7 Albumin/Globulin Ratio 0.8 L 0.7 L Folate Complement C3 Complement C4 Blood Type A POSITIVE Antibody Screen Negative Crossmatch See Detail BBK History Checked Patient has bt 05/01/18 05/01/18 05/01/18 07:00 07:00 10:30 WBC 6.9 RBC 3.11 L Hgb 9.3 L D Hct 27.8 L MCV 89.4 D MCH 29.9 MCHC 33.5 RDW 14.1 Plt Count 139 MPV 9.5 Gran % 59.0 Lymph % (Auto) 18.0 L Catron % (Auto) 12.6 H Eos % (Auto) 10.4 H Baso % (Auto) 0.0 Gran # 4.05 Lymph # (Auto) 1.2 Catron # (Auto) 0.9 H Eos # (Auto) 0.7 Baso # (Auto) 0.00 PT 20.6 H INR 1.77 Sodium Potassium Chloride Carbon Dioxide Anion Gap BUN Creatinine Est GFR ( Amer) Est GFR (Non-Af Amer) Random Glucose Calcium Iron 132 TIBC 238 L % Saturation 55 Ferritin Total Bilirubin AST ALT Alkaline Phosphatase Lactate Dehydrogenase Total Creatine Kinase Troponin I Total Protein Albumin Globulin Albumin/Globulin Ratio Folate Complement C3 Complement C4 Blood Type Antibody Screen Crossmatch BBK History Checked 05/01/18 05/01/18 05/01/18 10:30 10:30 10:30 WBC 6.7 RBC 3.79 Hgb 11.5 L D Hct 33.8 L MCV 89.2 MCH 30.3 MCHC 34.0 RDW 14.5 Plt Count 160 MPV 9.9 Gran % 67.0 Lymph % (Auto) 17.5 L Catron % (Auto) 6.7 H Eos % (Auto) 8.7 H Baso % (Auto) 0.1 Gran # 4.47 Lymph # (Auto) 1.2 Catron # (Auto) 0.5 Eos # (Auto) 0.6 Baso # (Auto) 0.01 PT INR Sodium Potassium Chloride Carbon Dioxide Anion Gap BUN Creatinine Est GFR ( Amer) Est GFR (Non-Af Amer) Random Glucose Calcium Iron TIBC % Saturation Ferritin 78.4 Total Bilirubin AST ALT Alkaline Phosphatase Lactate Dehydrogenase Total Creatine Kinase Troponin I Total Protein Albumin Globulin Albumin/Globulin Ratio Folate 9.9 Complement C3 120.0 Complement C4 14.6 Blood Type Antibody Screen Crossmatch BBK History Checked Assessment & Plan - Assessment and Plan (Free Text) Assessment: 82 yo male with infected right leg with Serratia, Proteus, and MRSA in the past two months. The patient was given IV home infusion with IV Vancomycin and Rocephin. Unfortunately, the patient's renal function worsened over the course of a week to a creatinine of 4.0 and patient was told to come to the hospital for further evaluation. For now no further Vancomycin dosing. Recheck Vancomycin levels (random) Standard level Rocephin dosing. Wound care as per Dr. Pham. Case discussed with Dr. Pham prior to admission to [facility]. Patient with minimal complaints. Check I&O especially urinary output for this patient Thank you for allowing me to participate in the care of this patient, we will follow with you.
[2018-05-01 19:39] LABS: URINE APPEARANCE SLIGHT-CLOUDY (CLEAR); URINE BILIRUBIN NEGATIVE (NEGATIVE); URINE BLOOD SMALL (NEGATIVE); URINE COLOR YELLOW (YELLOW); URINE GLUCOSE (UA) NEGATIVE (NEGATIVE); URINE LEUKOCYTE ESTERASE NEGATIVE Leu/uL (NEGATIVE); URINE PROTEIN NEGATIVE mg/dL (<30 mg/dL); URINE UROBILINOGEN 0.2 E.U./dL (<1 E.U./dL)
[2018-05-01 19:49] LABS: TOTAL PROTEIN,RANDOM URINE 33 mg/L
[2018-05-01 19:51] LABS: URINE AMORPHOUS SEDIMENT SMALL; URINE BACTERIA SMALL (NEG)
[2018-05-02] MEDS: Dextrose 5%/0.45% NS 1,000 ML IV SCH ×3 (01:40→21:30)
[2018-05-02 04:42] LABS: CALCIUM 7.9 mg/dL (8.4-10.5)
[2018-05-02] MEDS ORDERED: Magnesium Sulfate 2 gm/50 ml 2 GM/50 ML BAG IVPB ONE (07:52)
[2018-05-02 08:17] LABS: HEPATITIS B SURFACE AG Negative (NEGATIVE)
[2018-05-02 08:22] LABS: HEPATITIS B CORE AB NEGATIVE (NEGATIVE)
[2018-05-02 08:34] LABS: HEPATITIS C ANTIBODY NEGATIVE (NEGATIVE)
[2018-05-02] MEDS: Multivitamin Vitamin B Complex (Nephro-Vite) Tab PO SCH (09:30)
[2018-05-02] MEDS: cefTRIAXone 1 gm 1 GM/100 ML BAG IVPB SCH (09:32)
--- NOTE | 2018-05-02 09:54 | CP.PCM.PN ---
Subjective - Date & Time of Evaluation Date of Evaluation: 05/02/18 Time of Evaluation: 09:52 - Subjective Subjective: Nephrology Consultation Note: Assessment: Stable Acute Kidney Injury (N17.9) ? AIN due to abx as also with peripheral eosinophilia and or vancomycin nephrotoxicity Hypertensive Chronic Kidney Disease (I12.9) Chronic Kidney Disease (N18.3) Stage 3 with ? mg proteinuria (R80.9) acute on chronic anemia, FOB + COPD, DVT, hx of Etoh and smoking hypoalbuminemia, metabolic acidosis hypomag, hyperphos Plan No acute need for renal replacement therapy at this time. Hypertension control with meds as ordered. Maintain hemodynamics stable. Avoid hypotension. Patient not on ACEI/ARB due to recent HARSH. added labetalol Monitor Input/Output, daily weights and renal function with basic metabolic panel added iron, MVI and sodium bicarb. plan to add JAMIE if Hb <10. supplemented Mag added PPI and thiamine as well added flomax as PVR 168 mL at some point, may consider GI follow up Check urine analysis, spot protein/creatinine, albumin/creatinine ratio, urine for eosinophils.renal and bladder sonogram Check GN work up as C3, C4, MAULIK, Anti dsDNA, ANCA (MPO and TN-3), HIV/Hep B and Hep C serology (along with rheumatoid factor and serum cryoglobulin levels [to be transported at room temperature] Anemia work up with TSAT/Ferritin/Vitamin B12/folate, serum protein electrophoresis with immunofixation, serum free light chain assay ([place]/Lambda) Check for 25-OH vitamin D, iPTH, phosphorus level. Dose meds/antibiotics for reduced GFR. Avoid fleets enema/magnesium based laxatives. Avoid nephrotoxins/NSAIDs/ iodinated contrast (unless needed emergently) Glycemic control Further work up/management as per primary team Thanks for allowing me to participate in care of your patient. Will follow patient with you. Please call if any Qs. had d/w team Dr Froilan Spears Office: [phone] Chief Complaint; leg swelling Reason for consult: Acute Kidney Injury HPI: Pt is a 82 M with hx of HTN, COPD, DVT on coumadin, etoh/smoker (quit 6 months ago), anemia, CKD 3 with baseline cr 1.4-1.5 presented with complaints of abnormal kidney fxn and HARSH Denies OTC/herbal meds or NSAIDs No recent iodinated contrast exposure. No obvious episodes of low BP. pt was treated with abx recently as vanco and cephalosporins pt not aware about kidney disease in past. feels in usual health except rt leg swelling ROS: Cardiovascular: No chest pain. Pulmonary: No shortness of breath Gastrointestinal: denies abdominal pain No nausea. No vomiting. Genitourinary: No pain while urinating. Denies blood in urine. All other negative except as mentioned in HPI Physical Examination: General Appearance: Comfortable, in no acute respiratory distress, co-operative. somewhat cachexic Vitals reviewed and noted as below Head; Atraumatic, normocephalic ENT: no ulcers no thrush. Tongue is midline. Oropharynx: no rash or ulcers. EYES: Pupils are equal, round and reactive to light accommodation. Eye muscles and extraocular movement intact. Sclera is anicteric. Neck; supple no lymphadenopathy, no thyromegaly or bruit Lungs: Normal respiratory rate/effort. Breath sounds bilateral equal and clear Heart: Normal rate. s1s2 normal. No rub or gallop. Extremities: no edema. No varicose veins. RLE swelling, dressing + Neurological: Patient is alert, awake and oriented to person, place and time. No focal deficit. Strength bilateral appropriate and equal Skin: Warm and dry. Normal turgor. No rash. Palpitation: Normal elasticity for age Abdomen: Abdomen is soft. Bowel sounds +. There is no abdominal tenderness, no guarding/rigidity ? hepatomegaly Psych: lack insight and normal affect/mood MSK: no joint tenderness or swelling. Digits and nails normal, no deformity : kidney not palpable ? distended bladder Labs/imaging reviewed. Past medical history, past surgical history, family history, social history, allergy reviewed and noted as below Family hx: no hx of CKD. Rest non-contributory Objective - Vital Signs/Intake and Output Vital Signs (last 24 hours): Temp Pulse Resp BP Pulse Ox 98.7 F 80 20 120/63 97 05/02/18 05:58 05/02/18 05:58 05/02/18 05:58 05/02/18 05:58 05/02/18 05:58 Intake and Output: 05/02/18 05/02/18 06:59 18:59 Intake Total 720 Balance 720 - Medications Medications: Current Medications Amlodipine Besylate (Norvasc) 10 mg PO DAILY [facility] Last Admin: 05/01/18 11:51 Dose: 10 mg Atorvastatin Calcium (Lipitor) 10 mg PO DIN [facility] Last Admin: 05/01/18 18:25 Dose: 10 mg Ferrous Gluconate (Fergon) 324 mg PO TID [facility] Last Admin: 05/01/18 18:25 Dose: 324 mg Dextrose/Sodium Chloride (Dextrose 5%/0.45% Ns 1000 Ml) 1,000 mls @ 100 mls/hr IV .Q10H [facility] Last Admin: 05/02/18 01:40 Dose: Not Given Ceftriaxone Sodium (Rocephin 1 Gram Ivpb) 1 gm in 100 mls @ 100 mls/hr IVPB DAILY [facility]; Protocol Last Admin: 05/01/18 11:51 Dose: 100 mls/hr Labetalol HCl (Trandate) 200 mg PO BID [facility] Last Admin: 05/01/18 18:25 Dose: 200 mg Pantoprazole Sodium (Protonix Ec Tab) 40 mg PO 0600 [facility] Sodium Bicarbonate (Sodium Bicarbonate Tab) 1,300 mg PO BID [facility] Last Admin: 05/01/18 18:24 Dose: 1,300 mg Tamsulosin HCl (Flomax) 0.4 mg PO DAILY [facility] Thiamine HCl (Vitamin B1 Tab) 100 mg PO DAILY [facility] Tramadol HCl (Ultram) 50 mg PO TID PRN PRN Reason: Pain, moderate (4-7) Last Admin: 05/01/18 11:51 Dose: 50 mg Vitamin B Complex/Vit C/Folic Acid (Nephro-Rober) 1 tab PO 0800 [facility] Warfarin Sodium (Coumadin) 5 mg PO DAILY [facility]; Protocol Last Admin: 05/01/18 11:50 Dose: 5 mg - Labs Labs: 05/01/18 10:30 05/02/18 04:00 PT 20.6 SECONDS (9.4-12.5) H 05/01/18 07:00 INR 1.77 05/01/18 07:00 APTT 36.3 Seconds (25.1-36.5) 04/30/18 17:39
[2018-05-02] MEDS: Pantoprazole 40 mg EC Tab PO SCH (10:00)
--- NOTE | 2018-05-02 11:55 | CP.PCM.PN ---
<Russ Byrne - Last Filed: 05/02/18 11:53> Subjective - Date & Time of Evaluation Date of Evaluation: 05/02/18 Time of Evaluation: 11:53 - Subjective Subjective: Podiatry progress note for Dr. Leach 82M seen at bedside. Resting comfortably. Denies any acute events overnight. Reports mild pain to the right lower extremity wound site. Denies N/V/F/C/SOB/CP and has no other pedal complaints. Objective - Vital Signs/Intake and Output Vital Signs (last 24 hours): Temp Pulse Resp BP Pulse Ox 98.7 F 80 20 171/58 H 97 05/02/18 05:58 05/02/18 09:31 05/02/18 05:58 05/02/18 09:31 05/02/18 05:58 Intake and Output: 05/02/18 05/02/18 06:59 18:59 Intake Total 720 Balance 720 - Medications Medications: Current Medications Amlodipine Besylate (Norvasc) 10 mg PO DAILY [facility] Last Admin: 05/02/18 09:30 Dose: 10 mg Atorvastatin Calcium (Lipitor) 10 mg PO DIN [facility] Last Admin: 05/01/18 18:25 Dose: 10 mg Ferrous Gluconate (Fergon) 324 mg PO TID [facility] Last Admin: 05/02/18 09:30 Dose: 324 mg Dextrose/Sodium Chloride (Dextrose 5%/0.45% Ns 1000 Ml) 1,000 mls @ 100 mls/hr IV .Q10H [facility] Last Admin: 05/02/18 01:40 Dose: Not Given Ceftriaxone Sodium (Rocephin 1 Gram Ivpb) 1 gm in 100 mls @ 100 mls/hr IVPB DAILY [facility]; Protocol Last Admin: 05/02/18 09:32 Dose: 100 mls/hr Labetalol HCl (Trandate) 200 mg PO BID [facility] Last Admin: 05/02/18 09:31 Dose: 200 mg Pantoprazole Sodium (Protonix Ec Tab) 40 mg PO 0600 [facility] Sodium Bicarbonate (Sodium Bicarbonate Tab) 1,300 mg PO BID [facility] Last Admin: 05/02/18 09:32 Dose: 1,300 mg Tamsulosin HCl (Flomax) 0.4 mg PO DAILY [facility] Last Admin: 05/02/18 09:30 Dose: 0.4 mg Thiamine HCl (Vitamin B1 Tab) 100 mg PO DAILY [facility] Last Admin: 05/02/18 09:30 Dose: 100 mg Tramadol HCl (Ultram) 50 mg PO TID PRN PRN Reason: Pain, moderate (4-7) Last Admin: 05/01/18 11:51 Dose: 50 mg Vitamin B Complex/Vit C/Folic Acid (Nephro-Rober) 1 tab PO 0800 [facility] Last Admin: 05/02/18 09:30 Dose: 1 tab Warfarin Sodium (Coumadin) 5 mg PO DAILY [facility]; Protocol Last Admin: 05/02/18 09:31 Dose: 5 mg - Labs Labs: 05/01/18 10:30 05/02/18 04:00 PT 20.6 SECONDS (9.4-12.5) H 05/01/18 07:00 INR 1.77 05/01/18 07:00 APTT 36.3 Seconds (25.1-36.5) 04/30/18 17:39 - Constitutional Appears: Well, Non-toxic, No Acute Distress - Head Exam Head Exam: ATRAUMATIC, NORMOCEPHALIC - Extremities Exam Additional comments: RLE focused exam Vasc: DP/PT 2/4. Skin temperature warm to warm from proximal to distal WNL. Cap refill < 3 seconds to all digits. No edema noted to right leg at this time Neuro: Epicritic and protective sensation grossly intact b/l Derm: An open wound at the surgical site of debridement and graft measure about 20cm X 4 cm X 0.3 cm. No pus, no purulent discharge or drainage, no clinical signs of infection. minimal periwound erythema. MSK: Minimal POP at the periwound site. ROM WNL at all major joints. Muscle power intact 5/5 in all major muscle groups. No other gross deformities noted - Neurological Exam Neurological Exam: Alert, Awake, Oriented x3 - Psychiatric Exam Psychiatric exam: Normal Affect, Normal Mood Assessment and Plan - Assessment and Plan (Free Text) Assessment: 82M with right lower leg surgically debrided and grafted wound Plan: Patient seen and evaluated Discussed in detail with Dr. Leach Afebrile, absent leukocytosis Dressing taken down, wound cleansed sterile saline, dressed with adaptic and DSD Wound cx taken - no growth after 24 hours, f/u Continue management per medicine Will continue to follow the patient while in house <HanyDellaLacey K - Last Filed: 05/07/18 15:21> Objective - Vital Signs/Intake and Output Vital Signs (last 24 hours): Temp Pulse Resp BP Pulse Ox 98.0 F 87 20 150/75 98 05/07/18 06:00 05/07/18 06:00 05/07/18 06:00 05/07/18 09:13 05/07/18 06:00 Intake and Output: 05/07/18 05/07/18 06:59 18:59 Intake Total 0 Balance 0 - Medications Medications: Current Medications Amlodipine Besylate (Norvasc) 10 mg PO DAILY [facility] Last Admin: 05/07/18 09:13 Dose: 10 mg Arformoterol Tartrate (Brovana) 15 mcg IH [id number] [facility] Last Admin: 05/07/18 07:28 Dose: 15 mcg Atorvastatin Calcium (Lipitor) 10 mg PO DIN [facility] Last Admin: 05/06/18 17:08 Dose: 10 mg Budesonide (Pulmicort Respules) 0.25 mg IH [id number] [facility] Last Admin: 05/07/18 07:28 Dose: 0.25 mg Calcium Acetate (Phoslo) 667 mg PO WM [facility] Last Admin: 05/07/18 13:42 Dose: 667 mg Darbepoetin José Miguel (Aranesp) 60 mcg SC QWK [facility] Ferrous Gluconate (Fergon) 324 mg PO TID [facility] Last Admin: 05/07/18 13:41 Dose: 324 mg Furosemide (Lasix) 40 mg PO DAILY [facility] Pantoprazole Sodium (Protonix Ec Tab) 40 mg PO 0600 [facility] Last Admin: 05/07/18 05:40 Dose: 40 mg Sodium Bicarbonate (Sodium Bicarbonate Tab) 1,300 mg PO BID [facility] Tamsulosin HCl (Flomax) 0.4 mg PO DAILY [facility] Last Admin: 05/07/18 09:12 Dose: 0.4 mg Thiamine HCl (Vitamin B1 Tab) 100 mg PO DAILY [facility] Last Admin: 05/07/18 09:15 Dose: 100 mg Tramadol HCl (Ultram) 50 mg PO TID PRN PRN Reason: Pain, moderate (4-7) Last Admin: 05/01/18 11:51 Dose: 50 mg Vitamin B Complex/Vit C/Folic Acid (Nephro-Rober) 1 tab PO 0800 [facility] Last Admin: 05/07/18 09:13 Dose: 1 tab Warfarin Sodium (Coumadin) 6 mg PO 1800 [facility]; Protocol Last Admin: 05/06/18 17:06 Dose: 6 mg - Labs Labs: 05/07/18 06:00 05/07/18 06:00 PT 17.6 SECONDS (9.4-12.5) H 05/06/18 06:00 INR 1.52 05/06/18 06:00 APTT 30.7 Seconds (25.1-36.5) 05/06/18 06:00 Attending/Attestation - Attestation I have personally seen and examined this patient.: Yes I have fully participated in the care of the patient.: Yes I have reviewed all pertinent clinical information, including history, physical exam and plan: Yes
--- NOTE | 2018-05-02 14:46 | PN ---
DATE: 05/02/2018 SUBJECTIVE: The patient has no complaints of any chest pain or shortness breath. No headaches or dizziness. PHYSICAL EXAMINATION VITAL SIGNS: Temperature is 98.7, pulse of 80, blood pressure 171/58 and respirations 20. GENERAL: The patient is lying in bed, flat, comfortable. HEENT: No oral lesion. Anicteric sclerae. Moist mucosa. NECK: No JVD, adenopathy, or thyromegaly. CARDIOVASCULAR: S1 and S2, regular. No murmurs, rubs, or gallops. LUNGS: Clear to auscultation bilaterally. No wheeze, rales, or rhonchi. ABDOMEN: Bowel sounds are positive, soft, nontender and nondistended. EXTREMITIES: No cyanosis, clubbing or edema. LABORATORY DATA: White count of 6.7 and hemoglobin 11.5. Creatinine is 4.5. ASSESSMENT: 1. Acute kidney injury on chronic kidney disease. 2. Peripheral arterial disease. 3. Right leg deep vein thrombosis. 4. Alcohol abuse. 5. Chronic obstructive pulmonary disease. 6. Hypertension. 7. Dyslipidemia. 8. Hypomagnesemia. PLAN: The patient is currently comfortable. The patient is on IV fluids. The patient is being followed by Nephrology, I will let them manage the fluids. The patient is on Flomax for BPH. The patient is on amlodipine for hypertension. He is going to be Rocephin for antibiotics. The patient is on labetalol for hypertension. He is on tramadol for pain. He is on a heart healthy diet. The patient's magnesium was low and it was replaced this morning. Jose Pineda MD
--- NOTE | 2018-05-02 17:49 | CP.PCM.PN ---
Subjective - Date & Time of Evaluation Date of Evaluation: 05/02/18 Time of Evaluation: 15:15 - Subjective Subjective: Infectious Disease Follow Up: May 02, 2018 82 yo male seen in my office about 2 weeks ago. The patient with wound cultures that grew Serratia, Proteus, and MRSA from the past two months. Treatment with Home IV of Ceftriaxone and Vancomycin IV. Initial home chemistries showed a Creatinine of 1.7 (2 days into medication administration start). Labs repeats 5 days later showed a Vancomycin through of 79 and Creatinine of 2.9. Antibiotics were stopped and 1L of 1/s NS administered a day. Labs repeated 3 days later showed Creatinine of 4.0 and Vancomycin trough of 60. Informed the patient to come to [facility] for further evaluation and monitoring. The patient denies any problems or complaints but does admit now that his urinary frequency and volume had decreased. Still with no complaints. States that he is comfortable. Random Vancomycin level down to 44.4 now. Objective - Vital Signs/Intake and Output Vital Signs (last 24 hours): Temp Pulse Resp BP Pulse Ox 97.8 F 74 18 120/56 L 97 05/02/18 12:00 05/02/18 14:00 05/02/18 12:00 05/02/18 12:00 05/02/18 05:58 Intake and Output: 05/02/18 05/02/18 06:59 18:59 Intake Total 720 300 Balance 720 300 - Medications Medications: Current Medications Amlodipine Besylate (Norvasc) 10 mg PO DAILY [facility]CLUD[facility] Last Admin: 05/02/18 09:30 Dose: 10 mg Atorvastatin Calcium (Lipitor) 10 mg PO DIN [facility]CLUD[facility] Last Admin: 05/01/18 18:25 Dose: 10 mg Ferrous Gluconate (Fergon) 324 mg PO TID [facility]CLUD[facility] Last Admin: 05/02/18 14:25 Dose: 324 mg Dextrose/Sodium Chloride (Dextrose 5%/0.45% Ns 1000 Ml) 1,000 mls @ 100 mls/hr IV .Q10H COUNT INCLUDES [facility] Last Admin: 05/02/18 16:07 Dose: 100 mls/hr Ceftriaxone Sodium (Rocephin 1 Gram Ivpb) 1 gm in 100 mls @ 100 mls/hr IVPB DAILY [facility]; Protocol Last Admin: 05/02/18 09:32 Dose: 100 mls/hr Labetalol HCl (Trandate) 200 mg PO BID [facility] Last Admin: 05/02/18 09:31 Dose: 200 mg Pantoprazole Sodium (Protonix Ec Tab) 40 mg PO 0600 [facility] Last Admin: 05/02/18 10:00 Dose: 40 mg Sodium Bicarbonate (Sodium Bicarbonate Tab) 1,300 mg PO BID [facility] Last Admin: 05/02/18 09:32 Dose: 1,300 mg Tamsulosin HCl (Flomax) 0.4 mg PO DAILY [facility] Last Admin: 05/02/18 09:30 Dose: 0.4 mg Thiamine HCl (Vitamin B1 Tab) 100 mg PO DAILY [facility] Last Admin: 05/02/18 09:30 Dose: 100 mg Tramadol HCl (Ultram) 50 mg PO TID PRN PRN Reason: Pain, moderate (4-7) Last Admin: 05/01/18 11:51 Dose: 50 mg Vitamin B Complex/Vit C/Folic Acid (Nephro-Rober) 1 tab PO 0800 [facility] Last Admin: 05/02/18 09:30 Dose: 1 tab Warfarin Sodium (Coumadin) 5 mg PO DAILY [facility]; Protocol Last Admin: 05/02/18 09:31 Dose: 5 mg - Labs Labs: 05/01/18 10:30 05/02/18 04:00 PT 20.6 SECONDS (9.4-12.5) H 05/01/18 07:00 INR 1.77 05/01/18 07:00 APTT 36.3 Seconds (25.1-36.5) 04/30/18 17:39 - Constitutional Appears: Non-toxic, No Acute Distress, Chronically Ill - Head Exam Head Exam: ATRAUMATIC, NORMOCEPHALIC - Eye Exam Eye Exam: EOMI, PERRL Pupil Exam: NORMAL ACCOMODATION, PERRL - ENT Exam ENT Exam: Mucous Membranes Moist, Normal External Ear Exam, TM's Normal Bilaterally - Neck Exam Neck Exam: Full ROM, Normal Inspection - Respiratory Exam Respiratory Exam: Clear to Ausculation Bilateral, NORMAL BREATHING PATTERN. absent: Rales, Rhonchi, Wheezes - Cardiovascular Exam Cardiovascular Exam: REGULAR RHYTHM, RRR, +S1, +S2 - GI/Abdominal Exam GI & Abdominal Exam: Soft, Normal Bowel Sounds. absent: Distended, Tenderness - Extremities Exam Extremities Exam: Full ROM. absent: Joint Swelling, Pedal Edema Additional comments: Vasc: DP/PT 2/4. Skin temperature warm to warm from proximal to distal WNL. Cap refill < 3 seconds to all digits. No edema noted to right leg at this time Neuro: Epicritic and protective sensation grossly intact b/l Derm: An open wound at the surgical site of debridement and graft measure about 20cm X 4 cm X 0.3 cm. No pus, no purulent discharge or drainage, no clinical signs of infection. minimal periwound erythema. MSK: Minimal POP at the periwound site. ROM WNL at all major joints. Muscle power intact 5/5 in all major muscle groups. No other gross deformities noted Wound site is improved compared to two weeks ago. Patient had at least plus swelling at home of bilateral lower extremities that started 4 days ago. - Neurological Exam Neurological Exam: Alert, Awake, CN II-XII Intact, Oriented x3 - Skin Additional comments: As per leg exam. Assessment and Plan - Assessment and Plan (Free Text) Assessment: 82 yo male with infected right leg with Serratia, Proteus, and MRSA in the past two months. The patient was given IV home infusion with IV Vancomycin and Rocephin. Unfortunately, the patient's renal function worsened over the course of a week to a creatinine of 4.0 and patient was told to come to the hospital for further evaluation. For now no further Vancomycin dosing. Recheck Vancomycin levels (random) periodically. Monitor Renal function. Strict output monitoring. Standard level Rocephin dosing. Wound care as per Dr. Pham. Case discussed with Dr. Pham prior to admission to [facility]. Patient with minimal complaints. Check I&O especially urinary output for this patient Thank you for allowing me to participate in the care of this patient, we will follow with you.
[2018-05-03] MEDS: Dextrose 5%/0.45% NS 1,000 ML IV SCH ×2 (05:07→07:30)
[2018-05-03] MEDS: Pantoprazole 40 mg EC Tab PO SCH (05:14)
[2018-05-03] MEDS ORDERED: Magnesium Sulfate 1 gm in D5W 1 GM/100 ML BAG IV ONE (07:21)
[2018-05-03] MEDS: Multivitamin Vitamin B Complex (Nephro-Vite) Tab PO SCH (08:20)
[2018-05-03 08:45] LABS: BASO # 0.02 K/mm3 (0.0-2.0); BASO % 0.3 % (0.0-3.0); EOS # 0.7 (0.0-0.7); EOS % 9.7 % (1.5-5.0); GRAN # 4.57 (1.4-6.5); LYMPH # 1.1 (1.2-3.4); LYMPH % 15.6 % (22.0-35.0); MEAN CELL VOLUME 89.4 fl (80.0-105.0); MEAN CORPUSCULAR HGB CONC 33.6 g/dl (31.0-37.0); MEAN PLATELET VOLUME 9.4 fl (7.0-11.0); MONO # 0.7 (0.1-0.6); MONO % 9.4 % (1.0-6.0); RBC 2.93 10^6/uL (3.5-6.1); RED CELL DISTRIBUTION WIDTH 14.4 % (11.5-14.5)
[2018-05-03 08:48] LABS: HEMOGLOBIN 8.8 g/dL (14.0-18.0)
[2018-05-03 08:57] LABS: ALB/GLOB RATIO 0.7 (1.1-1.8); ALBUMIN 2.6 g/dL (3.0-4.8); CALCIUM 7.8 mg/dL (8.4-10.5)
[2018-05-03 09:06] LABS: TROPONIN I 0.02 ng/mL
--- NOTE | 2018-05-03 09:15 | CP.PCM.PN ---
<Nikolas Duran - Last Filed: 05/03/18 19:28> Subjective - Date & Time of Evaluation Date of Evaluation: 05/03/18 Time of Evaluation: 09:15 - Subjective Subjective: Podiatry progress note for Dr. Leach 82 y/o M patient seen at bedside for right lower leg surgically debrided and grafted wound. Resting comfortably. Denies any acute events overnight. Reports mild pain to the right lower extremity wound site. Denies N/V/F/C/SOB/CP and has no other pedal complaints. Objective - Vital Signs/Intake and Output Vital Signs (last 24 hours): Temp Pulse Resp BP Pulse Ox 98.3 F 78 19 120/64 98 05/03/18 06:00 05/03/18 06:00 05/03/18 06:00 05/03/18 06:00 05/03/18 06:00 Intake and Output: 05/03/18 05/03/18 06:59 18:59 Intake Total 1320 Output Total 0 Balance 1320 - Medications Medications: Current Medications Amlodipine Besylate (Norvasc) 10 mg PO DAILY [facility] Last Admin: 05/02/18 09:30 Dose: 10 mg Atorvastatin Calcium (Lipitor) 10 mg PO DIN [facility] Last Admin: 05/02/18 18:06 Dose: 10 mg Ferrous Gluconate (Fergon) 324 mg PO TID [facility] Last Admin: 05/02/18 18:07 Dose: 324 mg Dextrose/Sodium Chloride (Dextrose 5%/0.45% Ns 1000 Ml) 1,000 mls @ 100 mls/hr IV .Q10H [facility] Last Admin: 05/03/18 05:07 Dose: 100 mls/hr Ceftriaxone Sodium (Rocephin 1 Gram Ivpb) 1 gm in 100 mls @ 100 mls/hr IVPB DAILY [facility]; Protocol Last Admin: 05/02/18 09:32 Dose: 100 mls/hr Labetalol HCl (Trandate) 200 mg PO BID [facility] Last Admin: 05/02/18 18:06 Dose: 200 mg Pantoprazole Sodium (Protonix Ec Tab) 40 mg PO 0600 [facility] Last Admin: 05/03/18 05:14 Dose: 40 mg Sodium Bicarbonate (Sodium Bicarbonate Tab) 1,300 mg PO BID [facility] Last Admin: 05/02/18 18:06 Dose: 1,300 mg Tamsulosin HCl (Flomax) 0.4 mg PO DAILY [facility] Last Admin: 05/02/18 09:30 Dose: 0.4 mg Thiamine HCl (Vitamin B1 Tab) 100 mg PO DAILY [facility] Last Admin: 05/02/18 09:30 Dose: 100 mg Tramadol HCl (Ultram) 50 mg PO TID PRN PRN Reason: Pain, moderate (4-7) Last Admin: 05/01/18 11:51 Dose: 50 mg Vitamin B Complex/Vit C/Folic Acid (Nephro-Rober) 1 tab PO 0800 [facility] Last Admin: 05/03/18 08:20 Dose: 1 tab Warfarin Sodium (Coumadin) 5 mg PO DAILY [facility]; Protocol Last Admin: 05/02/18 09:31 Dose: 5 mg - Labs Labs: 05/03/18 08:25 05/03/18 08:25 PT 20.6 SECONDS (9.4-12.5) H 05/01/18 07:00 INR 1.77 05/01/18 07:00 APTT 36.3 Seconds (25.1-36.5) 04/30/18 17:39 - Constitutional Appears: Well, Non-toxic, No Acute Distress - Head Exam Head Exam: ATRAUMATIC, NORMOCEPHALIC - Extremities Exam Additional comments: RLE focused exam Vasc: DP/PT 2/4. Skin temperature warm to warm from proximal to distal WNL. Cap refill < 3 seconds to all digits. No edema noted to right leg at this time Neuro: Epicritic and protective sensation grossly intact b/l Derm: An open wound at the surgical site of debridement and graft measure about 20cm X 4 cm X 0.3 cm. No pus, no purulent dischargebut minimal serous drainage present, no clinical signs of infection. minimal periwound erythema. MSK: Minimal Pain on palpation at the periwound site. ROM WNL at all major joints. Muscle power intact 5/5 in all major muscle groups. No other gross deformities noted - Neurological Exam Neurological Exam: Alert, Awake, Oriented x3 - Psychiatric Exam Psychiatric exam: Normal Affect, Normal Mood Assessment and Plan - Assessment and Plan (Free Text) Assessment: 82 y/o M patient seen at bedside for right lower leg surgically debrided and grafted wound. Plan: Patient seen and evaluated at the bedside with Dr. Leach Discussed in plan detail with Dr. Leach Charts, labs and vitals reviewed; Afebrile, absent leukocytosis Dressing taken down, wound cleansed sterile saline, dressed with adaptic and DSD Wound cx taken - Gram negative rods after 48 hours Ordered Right Leg MRI Ordered B/L POLLO/PVR Continue management as per primary team ID on board; recommendations appreciated Will continue to follow up the patient while in house <Lacey Leach - Last Filed: 05/07/18 15:12> Objective - Vital Signs/Intake and Output Vital Signs (last 24 hours): Temp Pulse Resp BP Pulse Ox 98.0 F 87 20 150/75 98 05/07/18 06:00 05/07/18 06:00 05/07/18 06:00 05/07/18 09:13 05/07/18 06:00 Intake and Output: 05/07/18 05/07/18 06:59 18:59 Intake Total 0 Balance 0 - Medications Medications: Current Medications Amlodipine Besylate (Norvasc) 10 mg PO DAILY [facility] Last Admin: 05/07/18 09:13 Dose: 10 mg Arformoterol Tartrate (Brovana) 15 mcg IH [id number] [facility] Last Admin: 05/07/18 07:28 Dose: 15 mcg Atorvastatin Calcium (Lipitor) 10 mg PO DIN [facility] Last Admin: 05/06/18 17:08 Dose: 10 mg Budesonide (Pulmicort Respules) 0.25 mg IH [id number] [facility] Last Admin: 05/07/18 07:28 Dose: 0.25 mg Calcium Acetate (Phoslo) 667 mg PO WM [facility] Last Admin: 05/07/18 13:42 Dose: 667 mg Darbepoetin José Miguel (Aranesp) 60 mcg SC QWK [facility] Ferrous Gluconate (Fergon) 324 mg PO TID [facility] Last Admin: 05/07/18 13:41 Dose: 324 mg Furosemide (Lasix) 40 mg PO DAILY [facility] Pantoprazole Sodium (Protonix Ec Tab) 40 mg PO 0600 [facility] Last Admin: 05/07/18 05:40 Dose: 40 mg Sodium Bicarbonate (Sodium Bicarbonate Tab) 1,300 mg PO BID [facility] Tamsulosin HCl (Flomax) 0.4 mg PO DAILY [facility] Last Admin: 05/07/18 09:12 Dose: 0.4 mg Thiamine HCl (Vitamin B1 Tab) 100 mg PO DAILY [facility] Last Admin: 05/07/18 09:15 Dose: 100 mg Tramadol HCl (Ultram) 50 mg PO TID PRN PRN Reason: Pain, moderate (4-7) Last Admin: 05/01/18 11:51 Dose: 50 mg Vitamin B Complex/Vit C/Folic Acid (Nephro-Rober) 1 tab PO 0800 [facility] Last Admin: 05/07/18 09:13 Dose: 1 tab Warfarin Sodium (Coumadin) 6 mg PO 1800 [facility]; Protocol Last Admin: 05/06/18 17:06 Dose: 6 mg - Labs Labs: 05/07/18 06:00 05/07/18 06:00 PT 17.6 SECONDS (9.4-12.5) H 05/06/18 06:00 INR 1.52 05/06/18 06:00 APTT 30.7 Seconds (25.1-36.5) 05/06/18 06:00 Attending/Attestation - Attestation I have personally seen and examined this patient.: Yes I have fully participated in the care of the patient.: Yes I have reviewed all pertinent clinical information, including history, physical exam and plan: Yes
--- NOTE | 2018-05-03 09:18 | CP.PCM.PCO ---
Addendum Addendum: Felix Roque [place] Doc Note Paged regarding patient being short of breath. I evaluated the patient and note that the patient is admitted for anemia, and is s/p 2u pRBCs. He is able to talk in full sentences, and is in no respiratory distress. There was no wheezing, rales or rhonchi and the patient is not tachycardic or tachypneic on exam. Initially, was worried regarding fluid overload post transfusion, however, patient has no signs of overload. He has history of COPD, however, he's not wheezing or having labored breathing to indicated an exacerbation. Given his hx, patient may be having a cardiac event or having symptomatic anemia. I will order Troponin and EKG to r/o cardiac events, and will order CBC and CMP to evaluate for anemia or electrolyte abnormality.
[2018-05-03] MEDS: cefTRIAXone 1 gm 1 GM/100 ML BAG IVPB SCH (10:06)
[2018-05-03] MEDS ORDERED: Darbepoetin Alfa 60 mcg/ml Inj SC ONE (10:37)
--- NOTE | 2018-05-03 11:45 | CP.PCM.PN ---
Subjective - Date & Time of Evaluation Date of Evaluation: 05/03/18 Time of Evaluation: 11:42 - Subjective Subjective: Nephrology Consultation Note: Assessment: Stable Acute Kidney Injury (N17.9) likely AIN due to abx as also with peripheral eosinophilia and eosinophiluria and or vancomycin nephrotoxicity Hypertensive Chronic Kidney Disease (I12.9) Chronic Kidney Disease (N18.3) Stage 3 with ? mg proteinuria (R80.9) acute on chronic anemia, FOB + with hx of gastric ulcer COPD, DVT, hx of Etoh and smoking hypoalbuminemia, metabolic acidosis hypomag, hyperphos Plan No acute need for renal replacement therapy at this time but may need and will need close follow up. Hypertension control with meds as ordered. Maintain hemodynamics stable. Avoid hypotension. Patient not on ACEI/ARB due to recent HARSH. added labetalol Monitor Input/Output, daily weights and renal function with basic metabolic panel added iron, MVI and sodium bicarb. aransep 60 mcg on 05/03/18 added PPI and thiamine as well added flomax as PVR 168 mL at some point, may consider GI follow up pt not a candidate for treatment with steroids due to hx gastric ulcer, active infection, FOB + with anemia. risks outweighs less certain benefits. Stop IVF and check CXR. may give lasix 40 mg IV if needed Check urine analysis, spot protein/creatinine, albumin/creatinine ratio, urine for eosinophils.renal and bladder sonogram Check GN work up as C3, C4, MAULIK, Anti dsDNA, ANCA (MPO and NV-3), HIV/Hep B and Hep C serology (along with rheumatoid factor and serum cryoglobulin levels [to be transported at room temperature] Anemia work up with TSAT/Ferritin/Vitamin B12/folate, serum protein electrophoresis with immunofixation, serum free light chain assay ([place]/Lambda) Check for 25-OH vitamin D, iPTH, phosphorus level. Dose meds/antibiotics for reduced GFR. Avoid fleets enema/magnesium based laxatives. Avoid nephrotoxins/NSAIDs/ iodinated contrast (unless needed emergently) Glycemic control Further work up/management as per primary team Thanks for allowing me to participate in care of your patient. Will follow patient with you. Please call if any Qs. had d/w team Dr Froilan Spears Office: [phone] Chief Complaint; leg swelling Reason for consult: Acute Kidney Injury HPI: Pt is a 82 M with hx of HTN, COPD, DVT on coumadin, etoh/smoker (quit 6 months ago), anemia, CKD 3 with baseline cr 1.4-1.5 presented with complaints of abnormal kidney fxn and HARSH Denies OTC/herbal meds or NSAIDs No recent iodinated contrast exposure. No obvious episodes of low BP. pt was treated with abx recently as vanco and cephalosporins pt not aware about kidney disease in past. feels in usual health except rt leg swelling ROS: Cardiovascular: No chest pain. Pulmonary: No shortness of breath now but had episode in night Gastrointestinal: denies abdominal pain No nausea. No vomiting. Genitourinary: No pain while urinating. Denies blood in urine. All other negative except as mentioned in HPI Physical Examination: General Appearance: Comfortable, in no acute respiratory distress, co-operative. somewhat cachexic Vitals reviewed and noted as below Head; Atraumatic, normocephalic ENT: no ulcers no thrush. Tongue is midline. Oropharynx: no rash or ulcers. EYES: Pupils are equal, round and reactive to light accommodation. Eye muscles and extraocular movement intact. Sclera is anicteric. Neck; supple no lymphadenopathy, no thyromegaly or bruit Lungs: Normal respiratory rate/effort. Breath sounds bilateral reduced at bases Heart: Normal rate. s1s2 normal. No rub or gallop. Extremities: no edema. No varicose veins. RLE swelling, dressing + Neurological: Patient is alert, awake and oriented to person, place and time. No focal deficit. Strength bilateral appropriate and equal Skin: Warm and dry. Normal turgor. No rash. Palpitation: Normal elasticity for age Abdomen: Abdomen is soft. Bowel sounds +. There is no abdominal tenderness, no guarding/rigidity ? hepatomegaly Psych: lack insight and normal affect/mood MSK: no joint tenderness or swelling. Digits and nails normal, no deformity : kidney not palpable ? distended bladder Labs/imaging reviewed. Past medical history, past surgical history, family history, social history, allergy reviewed and noted as below Family hx: no hx of CKD. Rest non-contributory Objective - Vital Signs/Intake and Output Vital Signs (last 24 hours): Temp Pulse Resp BP Pulse Ox 98.3 F 80 19 149/85 98 05/03/18 06:00 12/03/18 10:06 05/03/18 06:00 05/03/18 10:06 05/03/18 06:00 Intake and Output: 05/03/18 05/03/18 06:59 18:59 Intake Total 1320 Output Total 0 Balance 1320 - Medications Medications: Current Medications Amlodipine Besylate (Norvasc) 10 mg PO DAILY [facility] Last Admin: 05/03/18 10:06 Dose: 10 mg Atorvastatin Calcium (Lipitor) 10 mg PO DIN [facility] Last Admin: 05/02/18 18:06 Dose: 10 mg Ferrous Gluconate (Fergon) 324 mg PO TID [facility] Last Admin: 05/03/18 10:06 Dose: 324 mg Ceftriaxone Sodium (Rocephin 1 Gram Ivpb) 1 gm in 100 mls @ 100 mls/hr IVPB DAILY [facility]; Protocol Last Admin: 05/03/18 10:06 Dose: 100 mls/hr Labetalol HCl (Trandate) 200 mg PO BID [facility] Last Admin: 05/03/18 10:06 Dose: 200 mg Pantoprazole Sodium (Protonix Ec Tab) 40 mg PO 0600 [facility] Last Admin: 05/03/18 05:14 Dose: 40 mg Sodium Bicarbonate (Sodium Bicarbonate Tab) 1,300 mg PO BID [facility] Last Admin: 05/03/18 10:05 Dose: 1,300 mg Tamsulosin HCl (Flomax) 0.4 mg PO DAILY [facility] Last Admin: 05/03/18 10:06 Dose: 0.4 mg Thiamine HCl (Vitamin B1 Tab) 100 mg PO DAILY [facility] Last Admin: 05/03/18 10:06 Dose: 100 mg Tramadol HCl (Ultram) 50 mg PO TID PRN PRN Reason: Pain, moderate (4-7) Last Admin: 05/01/18 11:51 Dose: 50 mg Vitamin B Complex/Vit C/Folic Acid (Nephro-Rober) 1 tab PO 0800 [facility] Last Admin: 05/03/18 08:20 Dose: 1 tab Warfarin Sodium (Coumadin) 5 mg PO DAILY [facility]; Protocol Last Admin: 05/03/18 10:06 Dose: 5 mg - Labs Labs: 05/03/18 08:25 05/03/18 08:25 PT 20.6 SECONDS (9.4-12.5) H 05/01/18 07:00 INR 1.77 05/01/18 07:00 APTT 36.3 Seconds (25.1-36.5) 04/30/18 17:39
--- NOTE | 2018-05-03 12:23 | RAD ---
Date of service: 05/03/2018 HISTORY: decreased BS COMPARISON: 04/30/2018 FINDINGS: LUNGS: No active pulmonary disease. PLEURA: No significant pleural effusion identified, no pneumothorax apparent. CARDIOVASCULAR: No aortic atherosclerotic calcification present. Normal cardiac size. Moderate vascular and interstitial congestion right greater than left OSSEOUS STRUCTURES: No significant abnormalities. VISUALIZED UPPER ABDOMEN: Normal. OTHER FINDINGS: None. IMPRESSION: Moderate vascular and interstitial congestion right greater than left
--- NOTE | 2018-05-03 13:10 | CP.PCM.CON ---
<Dany Fontaine - Last Filed: 05/03/18 18:58> History of Present Illness - History of Present Illness History of Present Illness: PGY6 GI Fellow Consult Note Patient is an 82yo male with PMHx significant for dudodenal and cecal AVMs, PVD, colon polyps, CKD, anemia, alcohol and tobacco abuse, DVT on Coumadin, Right LE wound s/p skin graft and subsequent infection growing Serratia, Proteus, 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 at home who presented to the hospital following the instructions of his PCP for abnormal blood work. The patient had outpatient lab tests revealing elevated creatinine and was noted to be anemic on lab work performed in the ED. Patient does admit to dark stool in the weeks preceding admission and denies iron supplementation or Pepto Bismol use. Moreover, he notes ongoing shortness of breath and fatigue. He was seen previously by our service in January for anemia and agreed to endoscopy at that time, revealing erosive gastritis and gastric ulceration. He was told to hold Coumadin for 7 days following the procedure, take Omeprazole 40mg PO QD and avoid NSAIDs. He has not followed up outpatient as previously instructed. The patient has very poor insight in to his multiple illnesses and expresses frustration by his mounting medical issues. He is adamant that he came to the hospital for his right leg wound and would only like to be treated for this issue. 12 system ROS negative except where stated PMHx: See HPI PSHx: Right SFA/Popliteal and anterior tibial angioplasty, right leg skin graft FHx: Patient denies significant family history Social: Known tobacco, EtOH abuse - pt denies Endo: EGD 02/16 - gastric ulcer, gastritis Past Patient History - Infectious Disease Hx of Infectious Diseases: None - Tetanus Immunizations Tetanus Immunization: Unknown - Past Social History Smoking Status: Never Smoked - CARDIAC Hx Cardiac Disorders: Yes Hx Congestive Heart Failure: Yes Hx Hypercholesterolemia: Yes Hx Hypertension: Yes Hx Peripheral Vascular Disease: Yes - PULMONARY Hx Respiratory Disorders: Yes Hx Chronic Obstructive Pulmonary Disease (COPD): Yes - NEUROLOGICAL Hx Neurological Disorder: No - HEENT Hx HEENT Problems: Yes Hx Cataracts: Yes - RENAL Hx Chronic Kidney Disease: Yes Hx Renal Failure: Yes - ENDOCRINE/METABOLIC Hx Endocrine Disorders: No - HEMATOLOGICAL/ONCOLOGICAL Hx Anemia: Yes - INTEGUMENTARY Hx Dermatological Problems: Yes Hx Cellulitis: Yes - MUSCULOSKELETAL/RHEUMATOLOGICAL Hx Musculoskeletal Disorders: Yes Hx Arthritis: Yes Hx Falls: No - GASTROINTESTINAL Hx Gastrointestinal Disorders: Yes Hx Gastroesophageal Reflux: Yes - GENITOURINARY/GYNECOLOGICAL Hx Genitourinary Disorders: Yes Hx Prostate Problems: Yes - PSYCHIATRIC Hx Psychophysiologic Disorder: Yes Hx Depression: Yes Hx Substance Use: No - SURGICAL HISTORY Other/Comment: s/p skin graft to RT lower extremity - ANESTHESIA Hx Anesthesia Reactions: No Hx Malignant Hyperthermia: No Meds Allergies/Adverse Reactions: Allergies Allergy/AdvReac Type Severity Reaction Status Date / Time No Known Allergies Allergy Verified 04/08/18 10:56 - Medications Medications: Current Medications Amlodipine Besylate (Norvasc) 10 mg PO DAILY REPLACED BY [facility] Last Admin: 05/03/18 10:06 Dose: 10 mg Atorvastatin Calcium (Lipitor) 10 mg PO DIN REPLACED BY [facility] Last Admin: 05/02/18 18:06 Dose: 10 mg Ferrous Gluconate (Fergon) 324 mg PO TID REPLACED BY [facility] Last Admin: 05/03/18 10:06 Dose: 324 mg Ceftriaxone Sodium (Rocephin 1 Gram Ivpb) 1 gm in 100 mls @ 100 mls/hr IVPB DAILY REPLACED BY [facility]; Protocol Last Admin: 05/03/18 10:06 Dose: 100 mls/hr Labetalol HCl (Trandate) 200 mg PO BID REPLACED BY [facility] Last Admin: 05/03/18 10:06 Dose: 200 mg Pantoprazole Sodium (Protonix Ec Tab) 40 mg PO 0600 REPLACED BY [facility] Last Admin: 05/03/18 05:14 Dose: 40 mg Sodium Bicarbonate (Sodium Bicarbonate Tab) 1,300 mg PO BID REPLACED BY [facility] Last Admin: 05/03/18 10:05 Dose: 1,300 mg Tamsulosin HCl (Flomax) 0.4 mg PO DAILY REPLACED BY [facility] Last Admin: 05/03/18 10:06 Dose: 0.4 mg Thiamine HCl (Vitamin B1 Tab) 100 mg PO DAILY REPLACED BY [facility] Last Admin: 05/03/18 10:06 Dose: 100 mg Tramadol HCl (Ultram) 50 mg PO TID PRN PRN Reason: Pain, moderate (4-7) Last Admin: 05/01/18 11:51 Dose: 50 mg Vitamin B Complex/Vit C/Folic Acid (Nephro-Rober) 1 tab PO 0800 REPLACED BY [facility] Last Admin: 05/03/18 08:20 Dose: 1 tab Warfarin Sodium (Coumadin) 5 mg PO DAILY REPLACED BY [facility]; Protocol Last Admin: 05/03/18 10:06 Dose: 5 mg Physical Exam - Constitutional Appears: Non-toxic, Agitated - Eye Exam Eye Exam: EOMI, PERRL - ENT Exam ENT Exam: Mucous Membranes Moist - Respiratory Exam Respiratory Exam: Rales. absent: Clear to Auscultation Bilateral, Rhonchi, Wheezes - Cardiovascular Exam Cardiovascular Exam: RRR, +S1, +S2 - GI/Abdominal Exam GI & Abdominal Exam: Normal Bowel Sounds, Soft. absent: Distended, Firm, Guarding, Organomegaly, Rigid, Tenderness - Rectal Exam Additional comments: Refused - Extremities Exam Additional comments: right LE covered in fresh bandaging for wound - Neurological Exam Neurological exam: Alert, Oriented x3 - Psychiatric Exam Psychiatric exam: Agitated - Skin Skin Exam: Dry, Warm Results - Vital Signs Recent Vital Signs: Last Vital Signs Temp 98.3 F 05/03/18 06:00 Pulse 80 05/03/18 10:06 Resp 19 05/03/18 06:00 BP 149/85 05/03/18 10:06 Pulse Ox 98 05/03/18 06:00 - Labs Result Diagrams: 05/03/18 08:25 05/03/18 08:25 Labs: Laboratory Results - last 24 hr 05/01/18 05/02/18 05/02/18 10:30 15:20 15:20 WBC RBC Hgb Hct MCV MCH MCHC RDW Plt Count MPV Gran % Lymph % (Auto) Bee % (Auto) Eos % (Auto) Baso % (Auto) Gran # Lymph # (Auto) Bee # (Auto) Eos # (Auto) Baso # (Auto) Sodium Potassium Chloride Carbon Dioxide Anion Gap BUN Creatinine Est GFR ( Amer) Est GFR (Non-Af Amer) Random Glucose Calcium Total Bilirubin AST ALT Alkaline Phosphatase Troponin I Total Protein Albumin Globulin Albumin/Globulin Ratio Urine Eosinophils Positive Ur Random Creatinine 77 MAULIK Nuclear Membr Pat Negative 05/03/18 05/03/18 08:25 08:25 WBC 7.0 RBC 2.93 L Hgb 8.8 L D Hct 26.2 L MCV 89.4 MCH 30.0 MCHC 33.6 RDW 14.4 Plt Count 144 MPV 9.4 Gran % 65.0 Lymph % (Auto) 15.6 L Bee % (Auto) 9.4 H Eos % (Auto) 9.7 H Baso % (Auto) 0.3 Gran # 4.57 Lymph # (Auto) 1.1 L Bee # (Auto) 0.7 H Eos # (Auto) 0.7 Baso # (Auto) 0.02 Sodium 138 Potassium 4.8 Chloride 112 H Carbon Dioxide 22 Anion Gap 9 L BUN 29 H Creatinine 4.7 H Est GFR ( Amer) 15 Est GFR (Non-Af Amer) 12 Random Glucose 120 H Calcium 7.8 L Total Bilirubin 0.2 AST 18 ALT 15 Alkaline Phosphatase 81 Troponin I 0.02 D Total Protein 6.3 Albumin 2.6 L Globulin 3.7 Albumin/Globulin Ratio 0.7 L Urine Eosinophils Ur Random Creatinine MAULIK Nuclear Membr Pat Assessment & Plan - Assessment and Plan (Free Text) Assessment: Patient is an 82yo male with PMHx significant for dudodenal and cecal AVMs, PVD, colon polyps, CKD, anemia, alcohol and tobacco abuse, DVT on Coumadin, Right LE wound s/p skin graft and subsequent infection growing Serratia, Proteus, 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 at home who presented to the hospital f ollowing the instructions of his PCP for abnormal blood work -Anemia -Supratherapeutic INR - resolved -CKD -RLE wound and cellulitis -H/O PUD, AVMs -H/O EtOH and tobacco abuse Plan: -Patient with poor insight and understanding of multiple comorbid conditions despite extended attempts at educating patient on disease processes -Currently, adamantly refusing rectal examination as well as any invasive procedures such as endoscopy and colonoscopy -I informed patient of importance of EGD/Colonoscopy in setting of recurrent anemia and presumed melena, particularly with concern for holding Coumadin and need for resumption -Patient states he understands risks of not proceeding with procedures - including ongoing potential for GI hemorrhage and risk of thrombosis during time off anticoagulation - but repeats that he wishes to only be treated for leg infection at this time -In light of this, would monitor CBC and transfuse accordingly -Ongoing medical therapy for leg wounds - Date & Time Date: 05/03/18 Time: 12:45 <Mary Jane Castañeda V - Last Filed: 05/03/18 22:20> Meds - Medications Medications: Current Medications Amlodipine Besylate (Norvasc) 10 mg PO DAILY [facility] Last Admin: 05/03/18 10:06 Dose: 10 mg Atorvastatin Calcium (Lipitor) 10 mg PO DIN REPLACED BY [facility] Last Admin: 05/03/18 16:12 Dose: 10 mg Ferrous Gluconate (Fergon) 324 mg PO TID REPLACED BY [facility] Last Admin: 05/03/18 17:09 Dose: 324 mg Furosemide (Lasix) 40 mg IVP DAILY REPLACED BY [facility] Stop: 05/05/18 10:01 Last Admin: 05/03/18 16:12 Dose: 40 mg Ceftriaxone Sodium (Rocephin 1 Gram Ivpb) 1 gm in 100 mls @ 100 mls/hr IVPB DAILY REPLACED BY [facility]; Protocol Last Admin: 05/03/18 10:06 Dose: 100 mls/hr Labetalol HCl (Trandate) 200 mg PO BID REPLACED BY [facility] Last Admin: 05/03/18 17:07 Dose: 200 mg Pantoprazole Sodium (Protonix Ec Tab) 40 mg PO 0600 REPLACED BY [facility] Last Admin: 05/03/18 05:14 Dose: 40 mg Sodium Bicarbonate (Sodium Bicarbonate Tab) 1,300 mg PO BID REPLACED BY [facility] Last Admin: 05/03/18 17:07 Dose: 1,300 mg Tamsulosin HCl (Flomax) 0.4 mg PO DAILY REPLACED BY [facility] Last Admin: 05/03/18 10:06 Dose: 0.4 mg Thiamine HCl (Vitamin B1 Tab) 100 mg PO DAILY REPLACED BY [facility] Last Admin: 05/03/18 10:06 Dose: 100 mg Tramadol HCl (Ultram) 50 mg PO TID PRN PRN Reason: Pain, moderate (4-7) Last Admin: 05/01/18 11:51 Dose: 50 mg Vitamin B Complex/Vit C/Folic Acid (Nephro-Rober) 1 tab PO 0800 REPLACED BY [facility] Last Admin: 05/03/18 08:20 Dose: 1 tab Warfarin Sodium (Coumadin) 5 mg PO DAILY REPLACED BY [facility]; Protocol Last Admin: 05/03/18 10:06 Dose: 5 mg Results - Vital Signs Recent Vital Signs: Last Vital Signs Temp 97.9 F 05/03/18 17:24 Pulse 79 05/03/18 17:24 Resp 18 05/03/18 17:24 BP 135/78 05/03/18 17:24 Pulse Ox 98 05/03/18 06:00 - Labs Result Diagrams: 05/03/18 08:25 05/03/18 08:25 Labs: Laboratory Results - last 24 hr 05/01/18 05/01/18 05/02/18 10:30 10:30 04:00 WBC RBC Hgb Hct MCV MCH MCHC RDW Plt Count MPV Gran % Lymph % (Auto) Bee % (Auto) Eos % (Auto) Baso % (Auto) Gran # Lymph # (Auto) Bee # (Auto) Eos # (Auto) Baso # (Auto) ESR Sodium Potassium Chloride Carbon Dioxide Anion Gap BUN Creatinine Est GFR ( Amer) Est GFR (Non-Af Amer) Random Glucose Calcium Total Bilirubin AST ALT Alkaline Phosphatase Troponin I Total Protein Total Protein (PEP) 5.6 L Albumin Globulin Albumin/Globulin Ratio PTH Intact Whole Molec 45 Urine Eosinophils MAULIK Nuclear Membr Pat Negative 05/02/18 05/03/18 05/03/18 15:20 08:25 08:25 WBC 7.0 RBC 2.93 L Hgb 8.8 L D Hct 26.2 L MCV 89.4 MCH 30.0 MCHC 33.6 RDW 14.4 Plt Count 144 MPV 9.4 Gran % 65.0 Lymph % (Auto) 15.6 L Bee % (Auto) 9.4 H Eos % (Auto) 9.7 H Baso % (Auto) 0.3 Gran # 4.57 Lymph # (Auto) 1.1 L Bee # (Auto) 0.7 H Eos # (Auto) 0.7 Baso # (Auto) 0.02 ESR Sodium 138 Potassium 4.8 Chloride 112 H Carbon Dioxide 22 Anion Gap 9 L BUN 29 H Creatinine 4.7 H Est GFR ( Amer) 15 Est GFR (Non-Af Amer) 12 Random Glucose 120 H Calcium 7.8 L Total Bilirubin 0.2 AST 18 ALT 15 Alkaline Phosphatase 81 Troponin I 0.02 D Total Protein 6.3 Total Protein (PEP) Albumin 2.6 L Globulin 3.7 Albumin/Globulin Ratio 0.7 L PTH Intact Whole Molec Urine Eosinophils Negative MAULIK Nuclear Membr Pat 05/03/18 12:00 WBC RBC Hgb Hct MCV MCH MCHC RDW Plt Count MPV Gran % Lymph % (Auto) Bee % (Auto) Eos % (Auto) Baso % (Auto) Gran # Lymph # (Auto) Bee # (Auto) Eos # (Auto) Baso # (Auto) ESR 105 H Sodium Potassium Chloride Carbon Dioxide Anion Gap BUN Creatinine Est GFR ( Amer) Est GFR (Non-Af Amer) Random Glucose Calcium Total Bilirubin AST ALT Alkaline Phosphatase Troponin I Total Protein Total Protein (PEP) Albumin Globulin Albumin/Globulin Ratio PTH Intact Whole Molec Urine Eosinophils MAULIK Nuclear Membr Pat Attending/Attestation - Attestation I have personally seen and examined this patient.: Yes I have fully participated in the care of the patient.: Yes I have reviewed all pertinent clinical information: Yes Notes (Text): This is an addendum to GI consult report dictated by the GI Fellow.The patient was seen and examined earlier. Medical records, lab studies, imagings were reviewed. Last 24 hours events reviewed. Agreed with the above treatment plan as outlined in GI Fellow 's notes with the addition of the following This 83 year old patient with multiple medical problems including cecal and duodenal AVMS, history of DVT on Coumadin now, admitted with anemia and leg infection Patient refusing endoscopic evaluation Continue PPI Followup of the Hb Risk of bleeding, complications explained, the patient fully understood 05/03/18 22:16
--- NOTE | 2018-05-03 14:31 | CARD ---
APPROVED REPORT Date of service: 05/03/2018 EKG Measurement Heart [id number] <Conclusion> Possible NSR with APCs, But pt has base line artefact appears A Fib Incomplete right bundle branch block Nonspecific ST abnormality, probably digitalis effect Abnormal ECG please Repeat ECG
--- NOTE | 2018-05-03 18:06 | PN ---
PROCEDURE DATE: 05/03/2018 SUBJECTIVE: The patient is an 82-year-old, seen and examined, lying in bed, seems to be comfortable, awake, alert, oriented, communicative, not in any distress. PHYSICAL EXAMINATION VITAL SIGNS: The patient is afebrile. Pulse 80, respirations 19, blood pressure 149/85. LUNGS: Bilateral fair air flow. No rhonchi or crackle. HEART: S1, S2 audible. ABDOMEN: Soft, nontender. No rebound, no guarding. NEUROLOGICAL: The patient is awake, alert, oriented, communicative. EXTREMITIES: Right leg is in a dressing. Edema is significantly improved. LABORATORY DATA: WBC is 7, hemoglobin 8.8, hematocrit 26.2, platelets 144. Chemistry: Sodium 138, potassium 4.8, chloride 112, CO2 of 22, BUN 29, creatinine 4.7, blood sugar 120. Stool Hemoccult positive. Leg wound has gram-negative hollie. ASSESSMENT AND PLAN: 1. [id number] renal failure. 2. Gastrointestinal bleed. 3. History of duodenal ulcer in the past. 4. History of right leg deep venous thrombosis. 5. Hypertension. 6. Right kidney cyst. 7. Chronic obstructive pulmonary disease. PLAN: We will continue the patient on PPI. The patient is getting IV antibiotic for now. Wound care is being done. We will start physical therapy. Urology consult by Dr. Elizabeth will be requested. We will follow up the patient in the a.m., follow up H and H, follow up PT and INR in a.m. Aquilino Garcia MD
--- NOTE | 2018-05-03 18:39 | CP.PCM.PN ---
Subjective - Date & Time of Evaluation Date of Evaluation: 05/03/18 Time of Evaluation: 16:15 - Subjective Subjective: Infectious Disease Follow Up: May 03, 2018 82 yo male seen in my office about 2 weeks ago. The patient with wound cultures that grew Serratia, Proteus, and MRSA from the past two months. Treatment with Home IV of Ceftriaxone and Vancomycin IV. Initial home chemistries showed a Creatinine of 1.7 (2 days into medication administration start). Labs repeats 5 days later showed a Vancomycin through of 79 and Creatinine of 2.9. Antibiotics were stopped and 1L of 1/s NS administered a day. Labs repeated 3 days later showed Creatinine of 4.0 and Vancomycin trough of 60. Informed the patient to come to [facility] for further evaluation and monitoring. The patient denies any problems or complaints but does admit now that his urinary frequency and volume had decreased. Still with no complaints. States that he is comfortable. Random Vancomycin level down to 44.4 on last check. Creatinine still at 4.7. Objective - Vital Signs/Intake and Output Vital Signs (last 24 hours): Temp Pulse Resp BP Pulse Ox 97.9 F 79 18 135/78 98 05/03/18 17:24 05/03/18 17:24 05/03/18 17:24 05/03/18 17:24 05/03/18 06:00 Intake and Output: 05/03/18 05/03/18 06:59 18:59 Intake Total 1320 Output Total 0 Balance 1320 - Medications Medications: Current Medications Amlodipine Besylate (Norvasc) 10 mg PO DAILY [facility] Last Admin: 05/03/18 10:06 Dose: 10 mg Atorvastatin Calcium (Lipitor) 10 mg PO DIN [facility] Last Admin: 05/03/18 16:12 Dose: 10 mg Ferrous Gluconate (Fergon) 324 mg PO TID [facility] Last Admin: 05/03/18 17:09 Dose: 324 mg Furosemide (Lasix) 40 mg IVP DAILY [facility] Stop: 05/05/18 10:01 Last Admin: 05/03/18 16:12 Dose: 40 mg Ceftriaxone Sodium (Rocephin 1 Gram Ivpb) 1 gm in 100 mls @ 100 mls/hr IVPB DAILY [facility]; Protocol Last Admin: 05/03/18 10:06 Dose: 100 mls/hr Labetalol HCl (Trandate) 200 mg PO BID [facility] Last Admin: 05/03/18 17:07 Dose: 200 mg Pantoprazole Sodium (Protonix Ec Tab) 40 mg PO 0600 [facility] Last Admin: 05/03/18 05:14 Dose: 40 mg Sodium Bicarbonate (Sodium Bicarbonate Tab) 1,300 mg PO BID [facility] Last Admin: 05/03/18 17:07 Dose: 1,300 mg Tamsulosin HCl (Flomax) 0.4 mg PO DAILY [facility] Last Admin: 05/03/18 10:06 Dose: 0.4 mg Thiamine HCl (Vitamin B1 Tab) 100 mg PO DAILY [facility] Last Admin: 05/03/18 10:06 Dose: 100 mg Tramadol HCl (Ultram) 50 mg PO TID PRN PRN Reason: Pain, moderate (4-7) Last Admin: 05/01/18 11:51 Dose: 50 mg Vitamin B Complex/Vit C/Folic Acid (Nephro-Rober) 1 tab PO 0800 [facility] Last Admin: 05/03/18 08:20 Dose: 1 tab Warfarin Sodium (Coumadin) 5 mg PO DAILY [facility]; Protocol Last Admin: 05/03/18 10:06 Dose: 5 mg - Labs Labs: 05/03/18 08:25 05/03/18 08:25 PT 20.6 SECONDS (9.4-12.5) H 05/01/18 07:00 INR 1.77 05/01/18 07:00 APTT 36.3 Seconds (25.1-36.5) 04/30/18 17:39 - Constitutional Appears: Non-toxic, No Acute Distress, Chronically Ill - Head Exam Head Exam: ATRAUMATIC, NORMOCEPHALIC - Eye Exam Eye Exam: EOMI, PERRL Pupil Exam: NORMAL ACCOMODATION, PERRL - ENT Exam ENT Exam: Mucous Membranes Moist, Normal External Ear Exam, TM's Normal Bilaterally - Neck Exam Neck Exam: Full ROM, Normal Inspection - Respiratory Exam Respiratory Exam: Clear to Ausculation Bilateral, NORMAL BREATHING PATTERN. absent: Rales, Rhonchi, Wheezes - Cardiovascular Exam Cardiovascular Exam: REGULAR RHYTHM, RRR, +S1, +S2 - GI/Abdominal Exam GI & Abdominal Exam: Soft, Normal Bowel Sounds. absent: Distended, Tenderness - Extremities Exam Extremities Exam: Full ROM. absent: Joint Swelling, Pedal Edema Additional comments: Vasc: DP/PT 2/4. Skin temperature warm to warm from proximal to distal WNL. Cap refill < 3 seconds to all digits. No edema noted to right leg at this time Neuro: Epicritic and protective sensation grossly intact b/l Derm: An open wound at the surgical site of debridement and graft measure about 20cm X 4 cm X 0.3 cm. No pus, no purulent discharge or drainage, no clinical signs of infection. minimal periwound erythema. MSK: Minimal POP at the periwound site. ROM WNL at all major joints. Muscle power intact 5/5 in all major muscle groups. No other gross deformities noted Wound site is improved compared to two weeks ago. Patient had at least plus swelling at home of bilateral lower extremities that started 4 days prior to admission. - Neurological Exam Neurological Exam: Alert, Awake, CN II-XII Intact, Oriented x3 - Psychiatric Exam Psychiatric exam: Normal Affect, Normal Mood - Skin Additional comments: As per leg exam Assessment and Plan - Assessment and Plan (Free Text) Assessment: 82 yo male with infected right leg with Serratia, Proteus, and MRSA in the past two months. The patient was given IV home infusion with IV Vancomycin and Rocephin. Unfortunately, the patient's renal function worsened over the course of a week to a creatinine of 4.0 and patient was told to come to the hospital for further evaluation. For now no further Vancomycin dosing. Recheck Vancomycin levels (random) periodically. Monitor Renal function. Strict output monitoring. Standard level Rocephin dosing. Wound care as per Dr. Pham. Case discussed with Dr. Pham prior to admission to [facility]. Evaluated by Renal Dr. Spears. Patient with minimal complaints. Check I&O especially urinary output for this patient Thank you for allowing me to participate in the care of this patient, we will follow with you.
[2018-05-03] MEDS ORDERED: MethylPREDNISolone 40 mg Vial IVP STA (23:06)
[2018-05-03] MEDS ORDERED: Albuterol-Ipratrop 3 mg / 0.5 (3 ml) UD IH STA (23:06)
[2018-05-03 23:30] LABS: ARTERIAL BLOOD GAS HCO3 18.8 mmol/L (21-28); ARTERIAL BLOOD GAS HEMOGLOBIN 8.2 g/dL (11.7-17.4); ARTERIAL BLOOD GAS O2 CAPACITY 11.7 mL/dl (16-24); ARTERIAL BLOOD GAS O2 CONTENT 11.6 ML/dl (15-23); ARTERIAL BLOOD GAS O2 SAT 99.5 % (95-98); ARTERIAL BLOOD GAS PCO2 34 mm/Hg (35-45); ARTERIAL BLOOD GAS PH 7.35 (7.35-7.45); ARTERIAL BLOOD GAS TCO2 19.8 mmol.L (22-28)
[2018-05-04] MEDS: Pantoprazole 40 mg EC Tab PO SCH (05:53)
[2018-05-04 06:49] LABS: INR 2.93; PROTHROMBIN TIME 34.4 SECONDS (9.4-12.5)
[2018-05-04 06:56] LABS: BASO # 0.01 K/mm3 (0.0-2.0); BASO % 0.2 % (0.0-3.0); EOS % 0.2 % (1.5-5.0); GRAN # 5.62 (1.4-6.5); HEMOGLOBIN 8.3 g/dL (14.0-18.0); LYMPH # 0.5 (1.2-3.4); LYMPH % 8.1 % (22.0-35.0); MEAN CELL VOLUME 89.2 fl (80.0-105.0); MEAN CORPUSCULAR HEMOGLOBIN 28.8 pg (25.0-35.0); MEAN CORPUSCULAR HGB CONC 32.3 g/dl (31.0-37.0); MEAN PLATELET VOLUME 9.6 fl (7.0-11.0); MONO % 0.5 % (1.0-6.0); PLATELET COUNT 151 10^3/uL (120.0-450.0); RBC 2.88 10^6/uL (3.5-6.1); RED CELL DISTRIBUTION WIDTH 14.5 % (11.5-14.5); WHITE BLOOD COUNT 6.2 10^3/uL (4.5-11.0)
[2018-05-04 07:03] LABS: ALB/GLOB RATIO 0.7 (1.1-1.8); ALBUMIN 2.8 g/dL (3.0-4.8); CALCIUM 8.3 mg/dL (8.4-10.5)
[2018-05-04] MEDS: Multivitamin Vitamin B Complex (Nephro-Vite) Tab PO SCH (08:29)
[2018-05-04 09:18] LABS: ALBUMIN (PEP) 2.3 g/dL (3.8-4.8); ALPHA-1-GLOBULIN (PEP) 0.4 g/dL (0.2-0.3)
[2018-05-04 09:28] LABS: LYMPHOCYTE 6 % (22.0-35.0); MONOCYTE 1 % (1.0-6.0); NEUTROPHIL 93 % (50.0-70.0); PLATELET ESTIMATE NORMAL (NORMAL)
[2018-05-04] MEDS: cefTRIAXone 1 gm 1 GM/100 ML BAG IVPB SCH (09:46)
[2018-05-04] MEDS ORDERED: Sod Polystyrene Sulf 15 gm/60 ml Susp PO ONE (10:16)
--- NOTE | 2018-05-04 11:23 | CP.PCM.PN ---
<Nikolas Duran - Last Filed: 05/04/18 14:49> Subjective - Date & Time of Evaluation Date of Evaluation: 05/04/18 Time of Evaluation: 11:22 - Subjective Subjective: Podiatry progress note for Dr. Pham 82 y/o M patient seen at bedside for right lower leg surgically debrided and grafted wound. Resting comfortably. Denies any acute events overnight. Reports mild pain to the right lower extremity wound site. Denies N/V/F/C/SOB/CP and has no other pedal complaints. Objective - Vital Signs/Intake and Output Vital Signs (last 24 hours): Temp Pulse Resp BP Pulse Ox 97.8 F 81 18 118/55 L 96 05/04/18 05:58 05/04/18 09:44 05/04/18 05:58 05/04/18 09:45 05/04/18 05:58 Intake and Output: 05/04/18 05/04/18 06:59 18:59 Intake Total 240 Output Total 1 Balance 239 - Medications Medications: Current Medications Amlodipine Besylate (Norvasc) 10 mg PO DAILY [facility] Last Admin: 05/04/18 09:45 Dose: 10 mg Atorvastatin Calcium (Lipitor) 10 mg PO DIN [facility] Last Admin: 05/03/18 16:12 Dose: 10 mg Calcium Acetate (Phoslo) 667 mg PO WM [facility] Ferrous Gluconate (Fergon) 324 mg PO TID [facility] Last Admin: 05/04/18 09:43 Dose: 324 mg Furosemide (Lasix) 40 mg IVP BID [facility] Stop: 05/06/18 18:01 Ceftriaxone Sodium (Rocephin 1 Gram Ivpb) 1 gm in 100 mls @ 100 mls/hr IVPB DAILY [facility]; Protocol Last Admin: 05/04/18 09:46 Dose: 100 mls/hr Labetalol HCl (Trandate) 100 mg PO BID [facility] Pantoprazole Sodium (Protonix Ec Tab) 40 mg PO 0600 [facility] Last Admin: 05/04/18 05:53 Dose: 40 mg Sodium Bicarbonate (Sodium Bicarbonate Tab) 1,300 mg PO TID [facility] Tamsulosin HCl (Flomax) 0.4 mg PO DAILY [facility] Last Admin: 05/04/18 09:44 Dose: 0.4 mg Thiamine HCl (Vitamin B1 Tab) 100 mg PO DAILY [facility] Last Admin: 05/04/18 09:43 Dose: 100 mg Tramadol HCl (Ultram) 50 mg PO TID PRN PRN Reason: Pain, moderate (4-7) Last Admin: 05/01/18 11:51 Dose: 50 mg Vitamin B Complex/Vit C/Folic Acid (Nephro-Rober) 1 tab PO 0800 [facility] Last Admin: 05/04/18 08:29 Dose: 1 tab Warfarin Sodium (Coumadin) 5 mg PO DAILY [facility]; Protocol Last Admin: 05/04/18 09:43 Dose: 5 mg - Labs Labs: 05/04/18 06:15 05/04/18 06:15 PT 34.4 SECONDS (9.4-12.5) H 05/04/18 06:15 INR 2.93 05/04/18 06:15 APTT 36.3 Seconds (25.1-36.5) 04/30/18 17:39 - Constitutional Appears: No Acute Distress - Head Exam Head Exam: ATRAUMATIC, NORMOCEPHALIC - Extremities Exam Additional comments: RLE focused exam Vasc: DP/PT 2/4. Skin temperature warm to warm from proximal to distal WNL. Cap refill < 3 seconds to all digits. No edema noted to right leg at this time Neuro: Epicritic and protective sensation grossly intact b/l Derm: An open wound at the surgical site of debridement and graft measure about 20cm X 4 cm X 0.3 cm. No pus, no purulent dischargebut minimal serous drainage present, no clinical signs of infection. minimal periwound erythema. MSK: Minimal Pain on palpation at the periwound site. ROM WNL at all major joints. Muscle power intact 5/5 in all major muscle groups. No other gross deformities noted - Neurological Exam Neurological Exam: Alert, Awake, Oriented x3 - Psychiatric Exam Psychiatric exam: Normal Affect, Normal Mood Assessment and Plan - Assessment and Plan (Free Text) Assessment: 82 y/o M patient seen at bedside for right lower leg surgically debrided and grafted wound. Plan: Patient seen and evaluated at the bedside with Dr. Pham Discussed in plan detail with Dr. Pham Charts, labs and vitals reviewed; Afebrile, absent leukocytosis Dressing taken down, wound cleansed sterile saline, dressed with maxorb, ABD and DSD Wound cx taken - Gram negative rods after 48 hours Right Leg MRI; No evidence of OM. B/L POLLO/PVR; Improved arterial wveform comared to the preinterventional study, Left SFA and tibial disease. Continue management as per primary team ID on board; recommendations appreciated Podiatry will continue to follow up the patient while in house <Van Pham - Last Filed: 05/04/18 15:59> Objective - Vital Signs/Intake and Output Vital Signs (last 24 hours): Temp Pulse Resp BP Pulse Ox 97.8 F 81 18 118/55 L 96 05/04/18 05:58 05/04/18 09:44 05/04/18 05:58 05/04/18 09:45 05/04/18 05:58 Intake and Output: 05/04/18 05/04/18 06:59 18:59 Intake Total 240 Output Total 1 Balance 239 - Medications Medications: Current Medications Amlodipine Besylate (Norvasc) 10 mg PO DAILY [facility] Last Admin: 05/04/18 09:45 Dose: 10 mg Atorvastatin Calcium (Lipitor) 10 mg PO DIN [facility] Last Admin: 05/03/18 16:12 Dose: 10 mg Calcium Acetate (Phoslo) 667 mg PO WM [facility] Last Admin: 05/04/18 13:23 Dose: 667 mg Ferrous Gluconate (Fergon) 324 mg PO TID [facility] Last Admin: 05/04/18 14:38 Dose: Not Given Furosemide (Lasix) 40 mg IVP BID [facility] Stop: 05/06/18 18:01 Ceftriaxone Sodium (Rocephin 1 Gram Ivpb) 1 gm in 100 mls @ 100 mls/hr IVPB DAILY [facility]; Protocol Last Admin: 05/04/18 09:46 Dose: 100 mls/hr Labetalol HCl (Trandate) 100 mg PO BID [facility] Pantoprazole Sodium (Protonix Ec Tab) 40 mg PO 0600 [facility] Last Admin: 05/04/18 05:53 Dose: 40 mg Sodium Bicarbonate (Sodium Bicarbonate Tab) 1,300 mg PO TID [facility] Last Admin: 05/04/18 14:38 Dose: Not Given Tamsulosin HCl (Flomax) 0.4 mg PO DAILY [facility] Last Admin: 05/04/18 09:44 Dose: 0.4 mg Thiamine HCl (Vitamin B1 Tab) 100 mg PO DAILY [facility] Last Admin: 05/04/18 09:43 Dose: 100 mg Tramadol HCl (Ultram) 50 mg PO TID PRN PRN Reason: Pain, moderate (4-7) Last Admin: 05/01/18 11:51 Dose: 50 mg Vitamin B Complex/Vit C/Folic Acid (Nephro-Rober) 1 tab PO 0800 [facility] Last Admin: 05/04/18 08:29 Dose: 1 tab Warfarin Sodium (Coumadin) 5 mg PO DAILY [facility]; Protocol Last Admin: 05/04/18 09:43 Dose: 5 mg - Labs Labs: 05/04/18 06:15 05/04/18 06:15 PT 34.4 SECONDS (9.4-12.5) H 05/04/18 06:15 INR 2.93 05/04/18 06:15 APTT 36.3 Seconds (25.1-36.5) 04/30/18 17:39 Attending/Attestation - Attestation I have personally seen and examined this patient.: Yes I have fully participated in the care of the patient.: Yes I have reviewed all pertinent clinical information, including history, physical exam and plan: Yes
--- NOTE | 2018-05-04 11:38 | US ---
PROCEDURE: Lower extremity POLLO exam HISTORY: Peripheral vascular disease with pain and nonhealing right ulcer. Recent right lower extremity intervention in December,. Smoker. PHYSICIAN(S): Silver Dempsey MD. FINDINGS: The right resting POLLO is normal and markedly improved, 1.04 The brachial systolic pressures are symmetric. The high thigh pressures and waveforms are relatively normal. The calf PVR waveforms augment normally. There is no gradient on the right, suggesting the right SFA stent is patent. There is a 44 mm gradient across the left SFA. This is suggestive of left SFA occlusive disease. The right ankle and metatarsal waveforms are pulsatile and mildly blunted. The waveforms are improved compared to the prior study. The left ankle and metatarsal waveforms are moderately diminished. IMPRESSION: 1. Improved right POLLO and PVR waveforms compared to the pre intervention study. 2. Left SFA and tibial disease.
[2018-05-04 12:22] LABS: FREE T4 1.04 ng/dL (0.78-2.19)
--- NOTE | 2018-05-04 12:36 | CP.PCM.PN ---
<Dany Fontaine - Last Filed: 05/04/18 12:55> Subjective - Date & Time of Evaluation Date of Evaluation: 05/04/18 Time of Evaluation: 08:45 - Subjective Subjective: PGY6 GI Fellow Progress Note Patient seen and examined bedside this morning. The patient states that he passed a regular, brown bowel movement and had no overt rectal bleeding overnight. Denies any nausea, vomiting, abdominal pain. Frustrated with ongoing leg wound. 12 system ROS performed and negative except where stated Objective - Vital Signs/Intake and Output Vital Signs (last 24 hours): Temp Pulse Resp BP Pulse Ox 97.8 F 81 18 118/55 L 96 05/04/18 05:58 05/04/18 09:44 05/04/18 05:58 05/04/18 09:45 05/04/18 05:58 Intake and Output: 05/04/18 05/04/18 06:59 18:59 Intake Total 240 Output Total 1 Balance 239 - Medications Medications: Current Medications Amlodipine Besylate (Norvasc) 10 mg PO DAILY [facility] Last Admin: 05/04/18 09:45 Dose: 10 mg Atorvastatin Calcium (Lipitor) 10 mg PO DIN [facility] Last Admin: 05/03/18 16:12 Dose: 10 mg Calcium Acetate (Phoslo) 667 mg PO WM [facility] Ferrous Gluconate (Fergon) 324 mg PO TID [facility] Last Admin: 05/04/18 09:43 Dose: 324 mg Furosemide (Lasix) 40 mg IVP BID [facility] Stop: 05/06/18 18:01 Ceftriaxone Sodium (Rocephin 1 Gram Ivpb) 1 gm in 100 mls @ 100 mls/hr IVPB DAILY [facility]; Protocol Last Admin: 05/04/18 09:46 Dose: 100 mls/hr Labetalol HCl (Trandate) 100 mg PO BID [facility] Pantoprazole Sodium (Protonix Ec Tab) 40 mg PO 0600 [facility] Last Admin: 05/04/18 05:53 Dose: 40 mg Sodium Bicarbonate (Sodium Bicarbonate Tab) 1,300 mg PO TID [facility] Tamsulosin HCl (Flomax) 0.4 mg PO DAILY [facility] Last Admin: 05/04/18 09:44 Dose: 0.4 mg Thiamine HCl (Vitamin B1 Tab) 100 mg PO DAILY [facility] Last Admin: 05/04/18 09:43 Dose: 100 mg Tramadol HCl (Ultram) 50 mg PO TID PRN PRN Reason: Pain, moderate (4-7) Last Admin: 05/01/18 11:51 Dose: 50 mg Vitamin B Complex/Vit C/Folic Acid (Nephro-Rober) 1 tab PO 0800 [facility] Last Admin: 05/04/18 08:29 Dose: 1 tab Warfarin Sodium (Coumadin) 5 mg PO DAILY [facility]; Protocol Last Admin: 05/04/18 09:43 Dose: 5 mg - Labs Labs: 05/04/18 06:15 05/04/18 06:15 PT 34.4 SECONDS (9.4-12.5) H 05/04/18 06:15 INR 2.93 05/04/18 06:15 APTT 36.3 Seconds (25.1-36.5) 04/30/18 17:39 - Constitutional Appears: Non-toxic, No Acute Distress - Eye Exam Eye Exam: EOMI, PERRL - ENT Exam ENT Exam: Mucous Membranes Moist - Respiratory Exam Respiratory Exam: Clear to Ausculation Bilateral. absent: Rales, Rhonchi, Wheezes - Cardiovascular Exam Cardiovascular Exam: RRR, +S1, +S2 - GI/Abdominal Exam GI & Abdominal Exam: Soft, Normal Bowel Sounds. absent: Distended, Firm, Guarding, Rigid, Tenderness, Organomegaly - Extremities Exam Additional comments: Wound on right leg, clean and without discharge - Neurological Exam Neurological Exam: Alert, Awake, Oriented x3 - Psychiatric Exam Psychiatric exam: Normal Affect, Normal Mood - Skin Skin Exam: Dry, Warm Assessment and Plan - Assessment and Plan (Free Text) Assessment: Patient is an 82yo male with PMHx significant for dudodenal and cecal AVMs, PVD, colon polyps, CKD, anemia, alcohol and tobacco abuse, DVT on Coumadin, Right LE wound s/p skin graft and subsequent infection growing Serratia, Proteus, 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 at home who presented to the hospital following the instructions of his PCP for abnormal blood work -Anemia -Supratherapeutic INR - resolved -CKD -RLE wound and cellulitis -H/O PUD, AVMs -H/O EtOH and tobacco abuse Plan: -Continues to refuse any invasive procedures such as endoscopy and colonoscopy despite education to anemia and concern for blood loss; understands blood count lower today than yesterday -Patient understands risks of not proceeding with evaluation -In light of this, would monitor CBC and transfuse accordingly -PPI ordered once daily -Ongoing medical therapy for leg wounds <MaddySaji diazl V - Last Filed: 05/04/18 22:20> Objective - Vital Signs/Intake and Output Vital Signs (last 24 hours): Temp Pulse Resp BP Pulse Ox 97.6 F 79 20 114/65 96 05/04/18 20:14 05/04/18 20:14 05/04/18 20:14 05/04/18 20:14 05/04/18 20:14 Intake and Output: 05/04/18 05/05/18 18:59 06:59 Intake Total 1420 Balance 1420 - Medications Medications: Current Medications Amlodipine Besylate (Norvasc) 10 mg PO DAILY [facility] Last Admin: 05/04/18 09:45 Dose: 10 mg Atorvastatin Calcium (Lipitor) 10 mg PO DIN [facility] Last Admin: 05/04/18 17:20 Dose: 10 mg Calcium Acetate (Phoslo) 667 mg PO WM [facility] Last Admin: 05/04/18 17:19 Dose: 667 mg Ferrous Gluconate (Fergon) 324 mg PO TID [facility] Last Admin: 05/04/18 17:19 Dose: 324 mg Furosemide (Lasix) 40 mg IVP BID [facility] Stop: 05/06/18 18:01 Last Admin: 05/04/18 17:19 Dose: 40 mg Labetalol HCl (Trandate) 100 mg PO BID [facility] Last Admin: 05/04/18 17:19 Dose: 100 mg Pantoprazole Sodium (Protonix Ec Tab) 40 mg PO 0600 [facility] Last Admin: 05/04/18 05:53 Dose: 40 mg Sodium Bicarbonate (Sodium Bicarbonate Tab) 1,300 mg PO TID [facility] Last Admin: 05/04/18 17:20 Dose: 1,300 mg Tamsulosin HCl (Flomax) 0.4 mg PO DAILY [facility] Last Admin: 05/04/18 09:44 Dose: 0.4 mg Thiamine HCl (Vitamin B1 Tab) 100 mg PO DAILY [facility] Last Admin: 05/04/18 09:43 Dose: 100 mg Tramadol HCl (Ultram) 50 mg PO TID PRN PRN Reason: Pain, moderate (4-7) Last Admin: 05/01/18 11:51 Dose: 50 mg Vitamin B Complex/Vit C/Folic Acid (Nephro-Rober) 1 tab PO 0800 [facility] Last Admin: 05/04/18 08:29 Dose: 1 tab Warfarin Sodium (Coumadin) 5 mg PO DAILY [facility]; Protocol Last Admin: 05/04/18 09:43 Dose: 5 mg - Labs Labs: 05/04/18 06:15 05/04/18 06:15 PT 34.4 SECONDS (9.4-12.5) H 05/04/18 06:15 INR 2.93 05/04/18 06:15 APTT 36.3 Seconds (25.1-36.5) 04/30/18 17:39 Attending/Attestation - Attestation I have personally seen and examined this patient.: Yes I have fully participated in the care of the patient.: Yes I have reviewed all pertinent clinical information, including history, physical exam and plan: Yes Notes (Text): This is an addendum to GI progress report dictated by the GI Fellow. The patient was seen and examined earlier. Medical records, lab studies, imagings were reviewed. Last 24 hours events reviewed. Agreed with the above treatment plan as outlined in GI Fellow 's notes with the addition of the following Patient still refusing endoscopic evaluation History of PUD, AVM Treated in the past Continue PPI Endoscopic evaluation when the patient is agreeable 05/04/18 22:19
--- NOTE | 2018-05-04 12:39 | CP.PCM.PN ---
Subjective - Date & Time of Evaluation Date of Evaluation: 05/04/18 Time of Evaluation: 12:35 - Subjective Subjective: Nephrology Consultation Note: Assessment: worsening Acute Kidney Injury (N17.9) likely AIN due to abx as also with peripheral eosinophilia and or vancomycin nephrotoxicity. also with igG [place] paraproteinemia Hypertensive Chronic Kidney Disease (I12.9) Chronic Kidney Disease (N18.3) Stage 3 with ? mg proteinuria (R80.9) acute on chronic anemia, FOB + with hx of gastric ulcer COPD, DVT, hx of Etoh and smoking hypoalbuminemia, metabolic acidosis hypomag, hyperphos Plan No acute need for renal replacement therapy at this time but may need soon and will need close follow up. pt does not understand at all the acuity of his condition and concerned only about his walking. consider psych eval for decisional capacity which likely he lacks. Hypertension control with meds as ordered. Maintain hemodynamics stable. Avoid hypotension. Patient not on ACEI/ARB due to recent HARSH. lowered labetalol Monitor Input/Output, daily weights and renal function with basic metabolic panel added iron, MVI, phos binders and sodium bicarb. aransep 60 mcg on 05/03/18 added PPI and thiamine as well added flomax as PVR 168 mL GI follow up noted pt not a candidate for treatment with steroids due to hx gastric ulcer, active infection, FOB + with anemia. risks outweighs less certain benefits. continue with lasix 40 mg bid. medical management of hyperkalemia today can consider kidney biopsy however pt refusing and doesn't understand risks/benefit Check urine analysis, spot protein/creatinine, albumin/creatinine ratio, urine for eosinophils.renal and bladder sonogram Check GN work up as C3, C4, MAULIK, Anti dsDNA, ANCA (MPO and [place]-3), HIV/Hep B and Hep C serology Anemia work up with TSAT/Ferritin/Vitamin B12/folate, serum protein electrophore sis with immunofixation, serum free light chain assay ([place]/Lambda) Check for 25-OH vitamin D, iPTH, phosphorus level. Dose meds/antibiotics for reduced GFR. Avoid fleets enema/magnesium based laxa tives. Avoid nephrotoxins/NSAIDs/ iodinated contrast (unless needed emergently) Glycemic control Further work up/management as per primary team Thanks for allowing me to participate in care of your patient. Will follow patient with you. Please call if any Qs. had d/w team Dr Froilan Spears Office: [phone] Chief Complaint; leg swelling Reason for consult: Acute Kidney Injury HPI: Pt is a 82 M with hx of HTN, COPD, DVT on coumadin, etoh/smoker (quit 6 mon ths ago), anemia, CKD 3 with baseline cr 1.4-1.5 presented with complaints of abnormal kidney fxn and HARSH Denies OTC/herbal meds or NSAIDs No recent iodinated contrast exposure. No obvious episodes of low BP. pt was treated with abx recently as vanco and cephalosporins pt not aware about kidney disease in past. feels in usual health except rt leg swelling ROS: Cardiovascular: No chest pain. Pulmonary: No shortness of breath now but had episode in night Gastrointestinal: denies abdominal pain No nausea. No vomiting. Genitourinary: No pain while urinating. Denies blood in urine. All other negative except as mentioned in HPI Physical Examination: General Appearance: Comfortable, in no acute respiratory distress, co-operative. somewhat cachexic Vitals reviewed and noted as below Head; Atraumatic, normocephalic ENT: no ulcers no thrush. Tongue is midline. Oropharynx: no rash or ulcers. EYES: Pupils are equal, round and reactive to light accommodation. Eye muscles and extraocular movement intact. Sclera is anicteric. Neck; supple no lymphadenopathy, no thyromegaly or bruit Lungs: Normal respiratory rate/effort. Breath sounds bilateral clearer Heart: Normal rate. s1s2 normal. No rub or gallop. Extremities: no edema. No varicose veins. RLE swelling, dressing + Neurological: Patient is alert, awake and oriented to person, place and time. No focal deficit. Strength bilateral appropriate and equal Skin: Warm and dry. Normal turgor. No rash. Palpitation: Normal elasticity for age Abdomen: Abdomen is soft. Bowel sounds +. There is no abdominal tenderness, no guarding/rigidity ? hepatomegaly Psych: lack insight and normal affect/mood MSK: no joint tenderness or swelling. Digits and nails normal, no deformity : kidney not palpable Labs/imaging reviewed. Past medical history, past surgical history, family history, social history, allergy reviewed and noted as below Family hx: no hx of CKD. Rest non-contributory Objective - Vital Signs/Intake and Output Vital Signs (last 24 hours): Temp Pulse Resp BP Pulse Ox 97.8 F 81 18 118/55 L 96 05/04/18 05:58 05/04/18 09:44 05/04/18 05:58 05/04/18 09:45 05/04/18 05:58 Intake and Output: 05/04/18 05/04/18 06:59 18:59 Intake Total 240 Output Total 1 Balance 239 - Medications Medications: Current Medications Amlodipine Besylate (Norvasc) 10 mg PO DAILY [facility] Last Admin: 05/04/18 09:45 Dose: 10 mg Atorvastatin Calcium (Lipitor) 10 mg PO DIN [facility] Last Admin: 05/03/18 16:12 Dose: 10 mg Calcium Acetate (Phoslo) 667 mg PO WM [facility] Ferrous Gluconate (Fergon) 324 mg PO TID [facility] Last Admin: 05/04/18 09:43 Dose: 324 mg Furosemide (Lasix) 40 mg IVP BID [facility] Stop: 05/06/18 18:01 Ceftriaxone Sodium (Rocephin 1 Gram Ivpb) 1 gm in 100 mls @ 100 mls/hr IVPB DAILY [facility]; Protocol Last Admin: 05/04/18 09:46 Dose: 100 mls/hr Labetalol HCl (Trandate) 100 mg PO BID [facility] Pantoprazole Sodium (Protonix Ec Tab) 40 mg PO 0600 [facility] Last Admin: 05/04/18 05:53 Dose: 40 mg Sodium Bicarbonate (Sodium Bicarbonate Tab) 1,300 mg PO TID [facility] Tamsulosin HCl (Flomax) 0.4 mg PO DAILY [facility] Last Admin: 05/04/18 09:44 Dose: 0.4 mg Thiamine HCl (Vitamin B1 Tab) 100 mg PO DAILY [facility] Last Admin: 05/04/18 09:43 Dose: 100 mg Tramadol HCl (Ultram) 50 mg PO TID PRN PRN Reason: Pain, moderate (4-7) Last Admin: 05/01/18 11:51 Dose: 50 mg Vitamin B Complex/Vit C/Folic Acid (Nephro-Rober) 1 tab PO 0800 [facility] Last Admin: 05/04/18 08:29 Dose: 1 tab Warfarin Sodium (Coumadin) 5 mg PO DAILY [facility]; Protocol Last Admin: 05/04/18 09:43 Dose: 5 mg - Labs Labs: 05/04/18 06:15 05/04/18 06:15 PT 34.4 SECONDS (9.4-12.5) H 05/04/18 06:15 INR 2.93 05/04/18 06:15 APTT 36.3 Seconds (25.1-36.5) 04/30/18 17:39
--- NOTE | 2018-05-04 14:35 | MRI ---
Date of service: 05/04/2018 PROCEDURE: MRI of the right tibia and fibula without contrast HISTORY: R/O OM of the Right leg COMPARISON: TECHNIQUE: MRI of the right lower leg was performed in multiple planes using multiple pulse sequences. FINDINGS: There is no marrow edema to suggest osteomyelitis or fracture. There is subcutaneous edema consistent with cellulitis. There is no focal abscess IMPRESSION: No evidence of osteomyelitis
--- NOTE | 2018-05-04 18:08 | CP.PCM.PN ---
Subjective - Date & Time of Evaluation Date of Evaluation: 05/04/18 Time of Evaluation: 15:15 - Subjective Subjective: Infectious Disease Follow Up: May 04, 2018 82 yo male seen in my office about 2 weeks ago. The patient with wound cultures that grew Serratia, Proteus, and MRSA from the past two months. Treatment with Home IV of Ceftriaxone and Vancomycin IV. Initial home chemistries showed a Creatinine of 1.7 (2 days into medication administration start). Labs repeats 5 days later showed a Vancomycin through of 79 and Creatinine of 2.9. Antibiotics were stopped and 1L of 1/s NS administered a day. Labs repeated 3 days later showed Creatinine of 4.0 and Vancomycin trough of 60. Informed the patient to come to [facility] for further evaluation and monitoring. The patient denies any problems or complaints but does admit now that his urinary frequency and volume had decreased. Still with no complaints. States that he is comfortable. Random Vancomycin level down to 35.4 on last check. Creatinine at 5.0. He is concerned more with his leg wounds and walking. He is blissfully unaware of how serious his kidney condition is despite multiple doctors explaining that to him. Objective - Vital Signs/Intake and Output Vital Signs (last 24 hours): Temp Pulse Resp BP Pulse Ox 97.8 F 76 18 103/59 L 96 05/04/18 05:58 05/04/18 17:19 05/04/18 05:58 05/04/18 17:19 05/04/18 05:58 Intake and Output: 05/04/18 05/04/18 06:59 18:59 Intake Total 240 Output Total 1 Balance 239 - Medications Medications: Current Medications Amlodipine Besylate (Norvasc) 10 mg PO DAILY [facility] Last Admin: 05/04/18 09:45 Dose: 10 mg Atorvastatin Calcium (Lipitor) 10 mg PO DIN [facility] Last Admin: 05/04/18 17:20 Dose: 10 mg Calcium Acetate (Phoslo) 667 mg PO WM [facility] Last Admin: 05/04/18 17:19 Dose: 667 mg Ferrous Gluconate (Fergon) 324 mg PO TID [facility] Last Admin: 05/04/18 17:19 Dose: 324 mg Furosemide (Lasix) 40 mg IVP BID [facility] Stop: 05/06/18 18:01 Last Admin: 05/04/18 17:19 Dose: 40 mg Ceftriaxone Sodium (Rocephin 1 Gram Ivpb) 1 gm in 100 mls @ 100 mls/hr IVPB DAILY [facility]; Protocol Last Admin: 05/04/18 09:46 Dose: 100 mls/hr Labetalol HCl (Trandate) 100 mg PO BID [facility] Last Admin: 05/04/18 17:19 Dose: 100 mg Pantoprazole Sodium (Protonix Ec Tab) 40 mg PO 0600 [facility] Last Admin: 05/04/18 05:53 Dose: 40 mg Sodium Bicarbonate (Sodium Bicarbonate Tab) 1,300 mg PO TID [facility] Last Admin: 05/04/18 17:20 Dose: 1,300 mg Tamsulosin HCl (Flomax) 0.4 mg PO DAILY [facility] Last Admin: 05/04/18 09:44 Dose: 0.4 mg Thiamine HCl (Vitamin B1 Tab) 100 mg PO DAILY [facility] Last Admin: 05/04/18 09:43 Dose: 100 mg Tramadol HCl (Ultram) 50 mg PO TID PRN PRN Reason: Pain, moderate (4-7) Last Admin: 05/01/18 11:51 Dose: 50 mg Vitamin B Complex/Vit C/Folic Acid (Nephro-Rober) 1 tab PO 0800 [facility] Last Admin: 05/04/18 08:29 Dose: 1 tab Warfarin Sodium (Coumadin) 5 mg PO DAILY [facility]; Protocol Last Admin: 05/04/18 09:43 Dose: 5 mg - Labs Labs: 05/04/18 06:15 05/04/18 06:15 PT 34.4 SECONDS (9.4-12.5) H 05/04/18 06:15 INR 2.93 05/04/18 06:15 APTT 36.3 Seconds (25.1-36.5) 04/30/18 17:39 - Constitutional Appears: Non-toxic, No Acute Distress, Chronically Ill - Head Exam Head Exam: ATRAUMATIC, NORMOCEPHALIC - Eye Exam Eye Exam: EOMI, PERRL Pupil Exam: NORMAL ACCOMODATION, PERRL - ENT Exam ENT Exam: Mucous Membranes Moist, Normal External Ear Exam, TM's Normal Bilaterally - Neck Exam Neck Exam: Full ROM, Normal Inspection - Respiratory Exam Respiratory Exam: Clear to Ausculation Bilateral, NORMAL BREATHING PATTERN. absent: Rales, Rhonchi, Wheezes - Cardiovascular Exam Cardiovascular Exam: REGULAR RHYTHM, RRR, +S1, +S2 - GI/Abdominal Exam GI & Abdominal Exam: Soft, Normal Bowel Sounds. absent: Distended, Tenderness - Extremities Exam Extremities Exam: Full ROM. absent: Joint Swelling, Pedal Edema Additional comments: Vasc: DP/PT 2/4. Skin temperature warm to warm from proximal to distal WNL. Cap refill < 3 seconds to all digits. No edema noted to right leg at this time Neuro: Epicritic and protective sensation grossly intact b/l Derm: An open wound at the surgical site of debridement and graft measure about 20cm X 4 cm X 0.3 cm. No pus, no purulent discharge or drainage, no clinical sig ns of infection. minimal periwound erythema. MSK: Minimal POP at the periwound site. ROM WNL at all major joints. Muscle power intact 5/5 in all major muscle groups. No other gross deformities noted Wound site is improved compared to two weeks ago. Patient had at least plus swelling at home of bilateral lower extremities that started 4 days prior to admission. - Neurological Exam Neurological Exam: Alert, Awake, CN II-XII Intact, Oriented x3 - Psychiatric Exam Psychiatric exam: Normal Affect, Normal Mood - Skin Additional comments: As per leg exam Assessment and Plan - Assessment and Plan (Free Text) Assessment: 82 yo male with infected right leg with Serratia, Proteus, and MRSA in the past two months. The patient was given IV home infusion with IV Vancomycin and Rocephin. Unfortunately, the patient's renal function worsened over the course of a week to a creatinine of 4.0 and patient was told to come to the hospital for further evaluation. For now no further Vancomycin dosing. Recheck Vancomycin levels (random) periodically. Monitor Renal function. Strict output monitoring. Standard level Rocephin dosing. Wound care as per Dr. Pham. Case discussed with Dr. Pham prior to admission to [facility]. Evaluated by Renal Dr. Spears. Patient with minimal complaints. Unfortunately, the creatinine has increased to 5. Vancomycin level has decreased to 35.4. Will stop all antibiotics at this time. Urine output remains extremely limited with a total of 500 for the day. Check I&O especially urinary output for this patient Thank you for allowing me to participate in the care of this patient, we will follow with you.
--- NOTE | 2018-05-04 23:58 | PN ---
DATE: 05/04/2018 SUBJECTIVE: The patient is 82 years old. Seen and examined. Doing well. No nausea or vomiting. No diarrhea. PHYSICAL EXAMINATION: VITAL SIGNS: He is afebrile, pulse 61, respirations 18, blood pressure . LUNGS: Bilateral fair airflow. No rhonchi or crackle. HEART: S1 and S2 audible. ABDOMEN: Soft and nontender. No rebound. No guarding. NEUROLOGIC: The patient is awake, alert, oriented, and able to communicate. Right leg is in the dressing. LABORATORY EXAMINATION: WBC 6.2, hemoglobin 8.3, hematocrit 25.7, and platelet of 151. PT 34.4 and INR 2.93. Chemistry: Sodium 137, potassium 5.6, chloride 109, CO2 of 19, BUN 33, creatinine 5, blood sugar 186. Had a leg Doppler done. He has improved right POLLO, but left SFA and tibial disease. Had MRI of the leg done. No evidence of osteomyelitis. ASSESSMENT AND PLAN: 1. Acute on chronic renal failure. 2. Chronic right leg ulcer, status post skin graft. 3. History of alcohol abuse. 4. Chronic obstructive pulmonary disease. 5. Peripheral vascular disease. 6. Hyperkalemia. PLAN: The patient was given a dose of Kayexalate. We will follow up CMP in a.m. If no improvement, we will proceed to have dialysis catheter placed and I will talk to the patient's daughter, Daisy. Aquilino Garcia MD
[2018-05-05] MEDS: Pantoprazole 40 mg EC Tab PO SCH (05:24)
[2018-05-05 07:19] LABS: BASO # 0.01 K/mm3 (0.0-2.0); BASO % 0.1 % (0.0-3.0); EOS % 0.4 % (1.5-5.0); GRAN # 6.31 (1.4-6.5); GRAN % 74.5 % (50.0-68.0); HEMOGLOBIN 7.8 g/dL (14.0-18.0); LYMPH # 1.2 (1.2-3.4); LYMPH % 14.4 % (22.0-35.0); MEAN CELL VOLUME 90.2 fl (80.0-105.0); MEAN CORPUSCULAR HEMOGLOBIN 29.5 pg (25.0-35.0); MEAN CORPUSCULAR HGB CONC 32.8 g/dl (31.0-37.0); MONO # 0.9 (0.1-0.6); MONO % 10.6 % (1.0-6.0); RBC 2.64 10^6/uL (3.5-6.1); RED CELL DISTRIBUTION WIDTH 14.8 % (11.5-14.5); WHITE BLOOD COUNT 8.5 10^3/uL (4.5-11.0)
[2018-05-05 07:24] LABS: ALB/GLOB RATIO 0.7 (1.1-1.8); ALBUMIN 2.8 g/dL (3.0-4.8); CALCIUM 8.2 mg/dL (8.4-10.5)
[2018-05-05 07:26] LABS: PARTIAL THROMBOPLASTIN TIME 39.7 Seconds (25.1-36.5)
[2018-05-05 07:33] LABS: INR 4.16; PROTHROMBIN TIME 49.2 SECONDS (9.4-12.5)
[2018-05-05] MEDS ORDERED: Sod Polystyrene Sulf 15 gm/60 ml Susp PO ONE (09:54)
[2018-05-05] MEDS: Multivitamin Vitamin B Complex (Nephro-Vite) Tab PO SCH (10:27)
--- NOTE | 2018-05-05 13:37 | CP.PCM.PN ---
<Nikolas Duran - Last Filed: 05/05/18 17:02> Subjective - Date & Time of Evaluation Date of Evaluation: 05/05/18 Time of Evaluation: 13:35 - Subjective Subjective: Podiatry progress note for Dr. Leach 82 y/o M patient seen at bedside for right lower leg surgically debrided and grafted wound. Resting comfortably in bed. AAOX3 and NAD. Denies any acute events overnight. Reports mild pain to the right lower extremity wound site. Denies N/V/F/C/SOB/CP and has no other pedal complaints. Objective - Vital Signs/Intake and Output Vital Signs (last 24 hours): Temp Pulse Resp BP Pulse Ox 97.5 F L 79 20 116/66 98 05/05/18 06:00 05/05/18 10:28 05/05/18 06:00 05/05/18 10:34 05/05/18 06:00 Intake and Output: 05/05/18 05/05/18 06:59 18:59 Intake Total 180 Output Total 50 Balance 130 - Medications Medications: Current Medications Amlodipine Besylate (Norvasc) 10 mg PO DAILY [facility] Last Admin: 05/05/18 10:27 Dose: 10 mg Atorvastatin Calcium (Lipitor) 10 mg PO DIN [facility] Last Admin: 05/04/18 17:20 Dose: 10 mg Calcium Acetate (Phoslo) 667 mg PO WM [facility] Last Admin: 05/05/18 10:27 Dose: 667 mg Ferrous Gluconate (Fergon) 324 mg PO TID [facility] Last Admin: 05/05/18 10:27 Dose: 324 mg Furosemide (Lasix) 40 mg IVP BID [facility] Stop: 05/06/18 18:01 Last Admin: 05/05/18 10:34 Dose: 40 mg Labetalol HCl (Trandate) 100 mg PO BID [facility] Last Admin: 05/05/18 10:28 Dose: 100 mg Pantoprazole Sodium (Protonix Ec Tab) 40 mg PO 0600 [facility] Last Admin: 05/05/18 05:24 Dose: 40 mg Sodium Bicarbonate (Sodium Bicarbonate Tab) 1,300 mg PO TID [facility] Last Admin: 05/05/18 10:33 Dose: 1,300 mg Tamsulosin HCl (Flomax) 0.4 mg PO DAILY [facility] Last Admin: 05/05/18 11:18 Dose: 0.4 mg Thiamine HCl (Vitamin B1 Tab) 100 mg PO DAILY [facility] Last Admin: 05/05/18 10:27 Dose: 100 mg Tramadol HCl (Ultram) 50 mg PO TID PRN PRN Reason: Pain, moderate (4-7) Last Admin: 05/01/18 11:51 Dose: 50 mg Vitamin B Complex/Vit C/Folic Acid (Nephro-Rober) 1 tab PO 0800 [facility] Last Admin: 05/05/18 10:27 Dose: 1 tab - Labs Labs: 05/05/18 06:00 05/05/18 06:00 PT 49.2 SECONDS (9.4-12.5) H 05/05/18 06:00 INR 4.16 H* 05/05/18 06:00 APTT 39.7 Seconds (25.1-36.5) H 05/05/18 06:00 - Constitutional Appears: Well, No Acute Distress - Head Exam Head Exam: ATRAUMATIC, NORMOCEPHALIC - Extremities Exam Additional comments: RLE focused exam Vasc: DP/PT 2/4. Skin temperature warm to warm from proximal to distal WNL. Cap refill < 3 seconds to all digits. No edema noted to right leg at this time Neuro: Epicritic and protective sensation grossly intact b/l Derm: An open wound at the surgical site of debridement and graft measure about 20cm X 4 cm X 0.3 cm. No pus, no purulent dischargebut minimal serous drainage present, no clinical signs of infection. minimal periwound erythema. MSK: Minimal Pain on palpation at the periwound site. ROM WNL at all major joints. Muscle power intact 5/5 in all major muscle groups. No other gross deformities noted - Neurological Exam Neurological Exam: Alert, Awake, Oriented x3 - Psychiatric Exam Psychiatric exam: Normal Affect, Normal Mood Assessment and Plan - Assessment and Plan (Free Text) Assessment: 82 y/o M patient seen at bedside for right lower leg surgically debrided and grafted wound. Plan: Patient seen and evaluated at the bedside. Discussed in plan detail with Dr. Leach Charts, labs and vitals reviewed; Afebrile, absent leukocytosis Dressing taken down, wound cleansed sterile saline, dressed with maxorb, ABD and DSD Wound Cx; Serratia Marcescens Right Leg MRI; No evidence of OM. B/L POLLO/PVR; Improved arterial wveform comared to the preinterventional study, Left SFA and tibial disease. Continue management as per primary team ID on board; recommendations appreciated As per ID due to deterioration of kidney functions; Vancomycin stopped Podiatry will continue to follow up the patient while in house <Lacey Leach - Last Filed: 05/07/18 14:59> Objective - Vital Signs/Intake and Output Vital Signs (last 24 hours): Temp Pulse Resp BP Pulse Ox 98.0 F 87 20 150/75 98 05/07/18 06:00 05/07/18 06:00 05/07/18 06:00 05/07/18 09:13 05/07/18 06:00 Intake and Output: 05/07/18 05/07/18 06:59 18:59 Intake Total 0 Balance 0 - Medications Medications: Current Medications Amlodipine Besylate (Norvasc) 10 mg PO DAILY [facility] Last Admin: 05/07/18 09:13 Dose: 10 mg Arformoterol Tartrate (Brovana) 15 mcg IH [id number] [facility] Last Admin: 05/07/18 07:28 Dose: 15 mcg Atorvastatin Calcium (Lipitor) 10 mg PO DIN [facility] Last Admin: 05/06/18 17:08 Dose: 10 mg Budesonide (Pulmicort Respules) 0.25 mg IH [id number] [facility] Last Admin: 05/07/18 07:28 Dose: 0.25 mg Calcium Acetate (Phoslo) 667 mg PO WM [facility] Last Admin: 05/07/18 13:42 Dose: 667 mg Darbepoetin José Miguel (Aranesp) 60 mcg SC QWK [facility] Ferrous Gluconate (Fergon) 324 mg PO TID [facility] Last Admin: 05/07/18 13:41 Dose: 324 mg Furosemide (Lasix) 40 mg PO DAILY [facility] Pantoprazole Sodium (Protonix Ec Tab) 40 mg PO 0600 [facility] Last Admin: 05/07/18 05:40 Dose: 40 mg Sodium Bicarbonate (Sodium Bicarbonate Tab) 1,300 mg PO BID [facility] Tamsulosin HCl (Flomax) 0.4 mg PO DAILY [facility] Last Admin: 05/07/18 09:12 Dose: 0.4 mg Thiamine HCl (Vitamin B1 Tab) 100 mg PO DAILY [facility] Last Admin: 05/07/18 09:15 Dose: 100 mg Tramadol HCl (Ultram) 50 mg PO TID PRN PRN Reason: Pain, moderate (4-7) Last Admin: 05/01/18 11:51 Dose: 50 mg Vitamin B Complex/Vit C/Folic Acid (Nephro-Rober) 1 tab PO 0800 [facility] Last Admin: 05/07/18 09:13 Dose: 1 tab Warfarin Sodium (Coumadin) 6 mg PO 1800 [facility]; Protocol Last Admin: 05/06/18 17:06 Dose: 6 mg - Labs Labs: 05/07/18 06:00 05/07/18 06:00 PT 17.6 SECONDS (9.4-12.5) H 05/06/18 06:00 INR 1.52 05/06/18 06:00 APTT 30.7 Seconds (25.1-36.5) 05/06/18 06:00 Attending/Attestation - Attestation I have personally seen and examined this patient.: Yes I have fully participated in the care of the patient.: Yes I have reviewed all pertinent clinical information, including history, physical exam and plan: Yes Notes (Text): 05/07/18 14:[address] Dempsey @ Vascular; he cannot do any intervention with pt Bun/Cr so high; thus since the wound is granular and stable we will continue with local care
[2018-05-05] MEDS ORDERED: Phytonadione 10 mg/ml Inj (Adult) ONE (13:56)
--- NOTE | 2018-05-05 14:56 | CP.PCM.PN ---
Subjective - Date & Time of Evaluation Date of Evaluation: 05/05/18 Time of Evaluation: 14:00 - Subjective Subjective: Infectious Disease Follow Up: May 05, 2018 82 yo male seen in my office about 2 weeks ago. The patient with wound cultures that grew Serratia, Proteus, and MRSA from the past two months. Treatment with Home IV of Ceftriaxone and Vancomycin IV. Initial home chemistries showed a Creatinine of 1.7 (2 days into medication administration start). Labs repeats 5 days later showed a Vancomycin through of 79 and Creatinine of 2.9. Antibiotics were stopped and 1L of 1/s NS administered a day. Labs repeated 3 days later showed Creatinine of 4.0 and Vancomycin trough of 60. Informed the patient to come to [facility] for further evaluation and monitoring. The patient denies any problems or complaints but does admit now that his urinary frequency and volume had decreased. Still with no complaints. States that he is comfortable. Random Vancomycin level down to 35.4 on last check. Creatinine at 5.7 today and has still been rising. He is concerned more with his leg wounds and walking. He is blissfully unaware of how serious his kidney condition is despite multiple doctors explaining that to him. Objective - Vital Signs/Intake and Output Vital Signs (last 24 hours): Temp Pulse Resp BP Pulse Ox 97.5 F L 79 20 116/66 98 05/05/18 06:00 05/05/18 10:28 05/05/18 06:00 05/05/18 10:34 05/05/18 06:00 Intake and Output: 05/05/18 05/05/18 06:59 18:59 Intake Total 180 Output Total 50 Balance 130 - Medications Medications: Current Medications Amlodipine Besylate (Norvasc) 10 mg PO DAILY [facility] Last Admin: 05/05/18 10:27 Dose: 10 mg Atorvastatin Calcium (Lipitor) 10 mg PO DIN [facility] Last Admin: 05/04/18 17:20 Dose: 10 mg Calcium Acetate (Phoslo) 667 mg PO WM [facility] Last Admin: 05/05/18 13:59 Dose: 667 mg Ferrous Gluconate (Fergon) 324 mg PO TID [facility] Last Admin: 05/05/18 13:59 Dose: 324 mg Furosemide (Lasix) 40 mg IVP BID [facility] Stop: 05/06/18 18:01 Last Admin: 12/05/18 10:34 Dose: 40 mg Labetalol HCl (Trandate) 100 mg PO BID [facility] Last Admin: 05/05/18 10:28 Dose: 100 mg Pantoprazole Sodium (Protonix Ec Tab) 40 mg PO 0600 [facility] Last Admin: 05/05/18 05:24 Dose: 40 mg Sodium Bicarbonate (Sodium Bicarbonate Tab) 1,300 mg PO TID [facility] Last Admin: 05/05/18 13:59 Dose: 1,300 mg Tamsulosin HCl (Flomax) 0.4 mg PO DAILY [facility] Last Admin: 05/05/18 11:18 Dose: 0.4 mg Thiamine HCl (Vitamin B1 Tab) 100 mg PO DAILY [facility] Last Admin: 05/05/18 10:27 Dose: 100 mg Tramadol HCl (Ultram) 50 mg PO TID PRN PRN Reason: Pain, moderate (4-7) Last Admin: 05/01/18 11:51 Dose: 50 mg Vitamin B Complex/Vit C/Folic Acid (Nephro-Rober) 1 tab PO 0800 [facility] Last Admin: 05/05/18 10:27 Dose: 1 tab - Labs Labs: 05/05/18 06:00 05/05/18 06:00 PT 49.2 SECONDS (9.4-12.5) H 05/05/18 06:00 INR 4.16 H* 05/05/18 06:00 APTT 39.7 Seconds (25.1-36.5) H 05/05/18 06:00 - Constitutional Appears: Non-toxic, No Acute Distress, Chronically Ill - Head Exam Head Exam: ATRAUMATIC, NORMOCEPHALIC - Eye Exam Eye Exam: EOMI, PERRL Pupil Exam: NORMAL ACCOMODATION, PERRL - ENT Exam ENT Exam: Mucous Membranes Moist, Normal External Ear Exam, TM's Normal Bilaterally - Neck Exam Neck Exam: Full ROM, Normal Inspection - Respiratory Exam Respiratory Exam: Clear to Ausculation Bilateral, NORMAL BREATHING PATTERN. absent: Rales, Rhonchi, Wheezes - Cardiovascular Exam Cardiovascular Exam: REGULAR RHYTHM, RRR, +S1, +S2 - GI/Abdominal Exam GI & Abdominal Exam: Soft, Normal Bowel Sounds. absent: Distended, Tenderness - Extremities Exam Extremities Exam: Full ROM. absent: Joint Swelling, Pedal Edema Additional comments: Vasc: DP/PT 2/4. Skin temperature warm to warm from proximal to distal WNL. Cap refill < 3 seconds to all digits. No edema noted to right leg at this time Neuro: Epicritic and protective sensation grossly intact b/l Derm: An open wound at the surgical site of debridement and graft measure about 20cm X 4 cm X 0.3 cm. No pus, no purulent discharge or drainage, no clinical signs of infection. minimal periwound erythema. MSK: Minimal POP at the periwound site. ROM WNL at all major joints. Muscle power intact 5/5 in all major muscle groups. No other gross deformities noted Wound site is improved compared to two weeks ago. Patient had at least plus swelling at home of bilateral lower extremities that started 4 days prior to admission. - Neurological Exam Neurological Exam: Alert, Awake, CN II-XII Intact, Oriented x3 - Psychiatric Exam Psychiatric exam: Normal Affect, Normal Mood - Skin Additional comments: As per leg exam Assessment and Plan - Assessment and Plan (Free Text) Assessment: 82 yo male with infected right leg with Serratia, Proteus, and MRSA in the past two months. The patient was given IV home infusion with IV Vancomycin and Rocephin. Unfortunately, the patient's renal function worsened over the course of a week to a creatinine of 4.0 and patient was told to come to the hospital for further evaluation. For now no further Vancomycin dosing. Recheck Vancomycin levels (random) periodically. Monitor Renal function. Strict output monitoring. Standard level Rocephin dosing. Wound care as per Dr. Pham. Case discussed with Dr. Pham prior to admission to [facility]. Evaluated by Renal Dr. Spears. Patient with minimal complaints. Unfortunately, the creatinine has increased to 5. Vancomycin level has decreased to 35.4. Stoooed all antibiotics at this mendel e. Urine output remains extremely limited with a total of 50ml for the day. Check I&O especially urinary output for this patient... noted that the patient has not been compliant with using the urinal. Thank you for allowing me to participate in the care of this patient, we will follow with you.
--- NOTE | 2018-05-05 15:49 | CP.PCM.PN ---
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 mg proteinuria (R80.9) acute on chronic anemia, FOB + with hx of gastric ulcer COPD, DVT, hx of Etoh and smoking hypoalbuminemia, metabolic acidosis hypomag, hyperphos Plan No acute need for renal replacement therapy at this time but may need soon and will need close follow up. making urine and K better. Hypertension control with meds as ordered. Maintain hemodynamics stable. Avoid hypotension. Patient not on ACEI/ARB due to recent HARSH. hold labetalol Monitor Input/Output, daily weights and renal function with basic metabolic panel added iron, MVI, phos binders and sodium bicarb. aransep 60 mcg on 05/03/18 added PPI and thiamine as well added flomax as PVR 168 mL GI follow up noted pt not a candidate for treatment with steroids due to hx gastric ulcer, active infection, FOB + with anemia. risks outweighs less certain benefits. continue with lasix 40 mg bid. medical management of hyperkalemia as needed can consider kidney biopsy however pt refusing and doesn't understand risks/benefit Check urine analysis, spot protein/creatinine, albumin/creatinine ratio, urine for eosinophils.renal and bladder sonogram Check GN work up as C3, C4, MAULIK, Anti dsDNA, ANCA (MPO and MD-3), HIV/Hep B and Hep C serology Anemia work up with TSAT/Ferritin/Vitamin B12/folate, serum protein electrophoresis with immunofixation, serum free light chain assay ([place]/Lambda) Check for 25-OH vitamin D, iPTH, phosphorus level. Dose meds/antibiotics for reduced GFR. Avoid fleets enema/magnesium based laxatives. Avoid nephrotoxins/NSAIDs/ iodinated contrast (unless needed emergently) Glycemic control Further work up/management as per primary team Thanks for allowing me to participate in care of your patient. Will follow patient with you. Please call if any Qs. had d/w team Dr Froilan Spears Office: [phone] Chief Complaint; leg swelling Reason for consult: Acute Kidney Injury HPI: Pt is a 82 M with hx of HTN, COPD, DVT on coumadin, etoh/smoker (quit 6 months ago), anemia, CKD 3 with baseline cr 1.4-1.5 presented with complaints of abnormal kidney fxn and HARSH Denies OTC/herbal meds or NSAIDs No recent iodinated contrast exposure. No obvious episodes of low BP. pt was treated with abx recently as vanco and cephalosporins pt not aware about kidney disease in past. feels in usual health except rt leg swelling ROS: 800 mL UOP so far Cardiovascular: No chest pain. Pulmonary: No shortness of breath now but had episode in night Gastrointestinal: denies abdominal pain No nausea. No vomiting. Genitourinary: No pain while urinating. Denies blood in urine. All other negative except as mentioned in HPI Physical Examination: General Appearance: Comfortable, in no acute respiratory distress, co-operative. somewhat cachexic Vitals reviewed and noted as below Head; Atraumatic, normocephalic ENT: no ulcers no thrush. Tongue is midline. Oropharynx: no rash or ulcers. EYES: Pupils are equal, round and reactive to light accommodation. Eye muscles and extraocular movement intact. Sclera is anicteric. Neck; supple no lymphadenopathy, no thyromegaly or bruit Lungs: Normal respiratory rate/effort. Breath sounds bilateral clearer Heart: Normal rate. s1s2 normal. No rub or gallop. Extremities: no edema. No varicose veins. RLE swelling, dressing + Neurological: Patient is alert, awake and oriented to person, place and time. No focal deficit. Strength bilateral appropriate and equal Skin: Warm and dry. Normal turgor. No rash. Palpitation: Normal elasticity for age Abdomen: Abdomen is soft. Bowel sounds +. There is no abdominal tenderness, no guarding/rigidity ? hepatomegaly Psych: lack insight and normal affect/mood MSK: no joint tenderness or swelling. Digits and nails normal, no deformity : kidney not palpable Labs/imaging reviewed. Past medical history, past surgical history, family history, social history, allergy reviewed and noted as below Family hx: no hx of CKD. Rest non-contributory Objective - Vital Signs/Intake and Output Vital Signs (last 24 hours): Temp Pulse Resp BP Pulse Ox 97.5 F L 79 20 116/66 98 05/05/18 06:00 05/05/18 10:28 05/05/18 06:00 05/05/18 10:34 05/05/18 06:00 Intake and Output: 05/05/18 05/05/18 06:59 18:59 Intake Total 180 Output Total 50 Balance 130 - Medications Medications: Current Medications Amlodipine Besylate (Norvasc) 10 mg PO DAILY [facility] Last Admin: 05/05/18 10:27 Dose: 10 mg Atorvastatin Calcium (Lipitor) 10 mg PO DIN [facility] Last Admin: 05/04/18 17:20 Dose: 10 mg Calcium Acetate (Phoslo) 667 mg PO WM [facility] Last Admin: 05/05/18 13:59 Dose: 667 mg Ferrous Gluconate (Fergon) 324 mg PO TID [facility] Last Admin: 05/05/18 13:59 Dose: 324 mg Furosemide (Lasix) 40 mg IVP BID [facility] Stop: 05/06/18 18:01 Last Admin: 05/05/18 10:34 Dose: 40 mg Pantoprazole Sodium (Protonix Ec Tab) 40 mg PO 0600 [facility] Last Admin: 05/05/18 05:24 Dose: 40 mg Sodium Bicarbonate (Sodium Bicarbonate Tab) 1,300 mg PO TID [facility] Last Admin: 05/05/18 13:59 Dose: 1,300 mg Tamsulosin HCl (Flomax) 0.4 mg PO DAILY [facility] Last Admin: 05/05/18 11:18 Dose: 0.4 mg Thiamine HCl (Vitamin B1 Tab) 100 mg PO DAILY [facility] Last Admin: 05/05/18 10:27 Dose: 100 mg Tramadol HCl (Ultram) 50 mg PO TID PRN PRN Reason: Pain, moderate (4-7) Last Admin: 05/01/18 11:51 Dose: 50 mg Vitamin B Complex/Vit C/Folic Acid (Nephro-Rober) 1 tab PO 0800 [facility] Last Admin: 05/05/18 10:27 Dose: 1 tab - Labs Labs: 05/05/18 06:00 05/05/18 06:00 PT 49.2 SECONDS (9.4-12.5) H 05/05/18 06:00 INR 4.16 H* 05/05/18 06:00 APTT 39.7 Seconds (25.1-36.5) H 05/05/18 06:00
[2018-05-06] MEDS: Pantoprazole 40 mg EC Tab PO SCH (06:17)
[2018-05-06 06:40] LABS: INR 1.52; PARTIAL THROMBOPLASTIN TIME 30.7 Seconds (25.1-36.5); PROTHROMBIN TIME 17.6 SECONDS (9.4-12.5)
[2018-05-06 06:41] LABS: BASO # 0.02 K/mm3 (0.0-2.0); BASO % 0.2 % (0.0-3.0); EOS # 0.5 (0.0-0.7); EOS % 6.5 % (1.5-5.0); GRAN # 5.47 (1.4-6.5); GRAN % 65.4 % (50.0-68.0); HEMOGLOBIN 8.1 g/dL (14.0-18.0); LYMPH # 1.4 (1.2-3.4); LYMPH % 16.9 % (22.0-35.0); MEAN CELL VOLUME 90.2 fl (80.0-105.0); MEAN CORPUSCULAR HEMOGLOBIN 29.5 pg (25.0-35.0); MEAN CORPUSCULAR HGB CONC 32.7 g/dl (31.0-37.0); MEAN PLATELET VOLUME 9.6 fl (7.0-11.0); MONO # 0.9 (0.1-0.6); RBC 2.75 10^6/uL (3.5-6.1); WHITE BLOOD COUNT 8.4 10^3/uL (4.5-11.0)
[2018-05-06 06:49] LABS: ALB/GLOB RATIO 0.7 (1.1-1.8); ALBUMIN 2.8 g/dL (3.0-4.8); CALCIUM 7.9 mg/dL (8.4-10.5)
--- NOTE | 2018-05-06 07:45 | PN ---
DATE: 05/05/2018 SUBJECTIVE: The patient is an 82-year-old, seen and examined, lying in bed, seems to be comfortable. No chest pain, no shortness of breath. PHYSICAL EXAMINATION VITAL SIGNS: He is afebrile, pulse 79, respirations 20, blood pressure 116/66. LUNGS: Bilateral fair airflow. No rhonchi or crackle. HEART: S1, S2 audible. ABDOMEN: Soft, nontender. No rebound, no guarding. NEUROLOGIC: He is awake, alert, oriented. Communicative. EXTREMITIES: Right terrazas is in the dressing. LABORATORY DATA: WBC is 8.5, hemoglobin 7.8, hematocrit 23.8, platelet of 161. PT 49.2, INR 4.16. Chemistry; sodium 138, potassium 4.8, chloride 109, CO2 of 22, BUN 44, creatinine 5.6, blood sugar of 113. Leg wound growing Serratia marcescens. DIAGNOSTIC DATA: Leg Doppler shows improved right POLLO compared to prior study and left SFA and tibial disease. ASSESSMENT: 1. Acute on chronic renal failure. 2. Right terrazas ulcer. 3. Anemia. 4. Chronic obstructive pulmonary disease. 5. Peripheral vascular disease, status post angioplasty. PLAN: I tried to get in touch with the patient's daughter, Daisy, and left a message to call me back. His INR is high. We will hold his Coumadin. I request Dr. Silver Dempsey for [place] catheter placement and also Nephrology input noted and appreciated. We will plan for dialysis. Aquilino Garcia MD
[2018-05-06] MEDS: Multivitamin Vitamin B Complex (Nephro-Vite) Tab PO SCH (09:17)
[2018-05-06] MEDS ORDERED: Magnesium Sulfate 1 gm in D5W 1 GM/100 ML BAG IVPB ONE (11:02)
--- NOTE | 2018-05-06 12:48 | CP.PCM.PCO ---
Physician Communication Note - Physician Communication Note Physician Communication Note: no HD access at this time as per Dr. Spears. SAMMIE and Dr. Dempsey is aware
--- NOTE | 2018-05-06 13:27 | CP.PCM.PCO ---
Physician Communication Note - Physician Communication Note Physician Communication Note: patient cleared by Dr. Elizabeth patient must f/u as outpatient for cysto
--- NOTE | 2018-05-06 14:52 | CP.PCM.PN ---
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 mg proteinuria (R80.9) acute on chronic anemia, FOB + with hx of gastric ulcer COPD, DVT, hx of Etoh and smoking hypoalbuminemia, metabolic acidosis hypomag, hyperphos Plan No acute need for renal replacement therapy at this time but may need soon and will need close follow up. UOP 2 L yesterday. Hypertension control with meds as ordered. Maintain hemodynamics stable. Avoid hypotension. Patient not on ACEI/ARB due to recent HARSH. Monitor Input/Output, daily weights and renal function with basic metabolic panel added iron, MVI, phos binders and sodium bicarb. aransep 60 mcg on 05/03/18 added PPI and thiamine as well added flomax as PVR 168 mL GI follow up noted pt not a candidate for treatment with steroids due to hx gastric ulcer, active infection, FOB + with anemia. risks outweighs less certain benefits. continue with lasix 40 mg bid. medical management of hyperkalemia as needed can consider kidney biopsy however pt refusing and doesn't understand risks/benefit. d/w daughter and she want to hold off as well. consider heme eval for anemia and paraproteinemia Dose meds/antibiotics for reduced GFR. Avoid fleets enema/magnesium based laxatives. Avoid nephrotoxins/NSAIDs/ iodinated contrast (unless needed emergently) Glycemic control Further work up/management as per primary team Thanks for allowing me to participate in care of your patient. Will follow patient with you. Please call if any Qs. had d/w team Dr Froilan Spears Office: [phone] Chief Complaint; leg swelling Reason for consult: Acute Kidney Injury HPI: Pt is a 82 M with hx of HTN, COPD, DVT on coumadin, etoh/smoker (quit 6 months ago), anemia, CKD 3 with baseline cr 1.4-1.5 presented with complaints of abnormal kidney fxn and HARSH Denies OTC/herbal meds or NSAIDs No recent iodinated contrast exposure. No obvious episodes of low BP. pt was treated with abx recently as vanco and cephalosporins pt not aware about kidney disease in past. feels in usual health except rt leg swelling ROS: Cardiovascular: No chest pain. Pulmonary: No shortness of breath now Gastrointestinal: denies abdominal pain No nausea. No vomiting. Genitourinary: No pain while urinating. Denies blood in urine. All other negative except as mentioned in HPI Physical Examination: General Appearance: Comfortable, in no acute respiratory distress, co-operative. somewhat cachexic Vitals reviewed and noted as below Head; Atraumatic, normocephalic ENT: no ulcers no thrush. Tongue is midline. Oropharynx: no rash or ulcers. EYES: Pupils are equal, round and reactive to light accommodation. Eye muscles and extraocular movement intact. Sclera is anicteric. Neck; supple no lymphadenopathy, no thyromegaly or bruit Lungs: Normal respiratory rate/effort. Breath sounds bilateral clearer Heart: Normal rate. s1s2 normal. No rub or gallop. Extremities: no edema. No varicose veins. RLE swelling, dressing + Neurological: Patient is alert, awake and oriented to person, place and time. No focal deficit. Strength bilateral appropriate and equal Skin: Warm and dry. Normal turgor. No rash. Palpitation: Normal elasticity for age Abdomen: Abdomen is soft. Bowel sounds +. There is no abdominal tenderness, no guarding/rigidity ? hepatomegaly Psych: lack insight and normal affect/mood MSK: no joint tenderness or swelling. Digits and nails normal, no deformity : kidney not palpable Labs/imaging reviewed. Past medical history, past surgical history, family history, social history, allergy reviewed and noted as below Family hx: no hx of CKD. Rest non-contributory Objective - Vital Signs/Intake and Output Vital Signs (last 24 hours): Temp Pulse Resp BP Pulse Ox 97.5 F L 79 20 135/70 98 05/05/18 06:00 05/05/18 10:28 05/05/18 06:00 05/06/18 09:18 05/05/18 06:00 Intake and Output: 05/06/18 05/06/18 06:59 18:59 Intake Total 800 Output Total 900 Balance -100 - Medications Medications: Current Medications Amlodipine Besylate (Norvasc) 10 mg PO DAILY [facility] Last Admin: 05/06/18 09:18 Dose: 10 mg Arformoterol Tartrate (Brovana) 15 mcg IH [id number] [facility] Atorvastatin Calcium (Lipitor) 10 mg PO DIN [facility] Last Admin: 05/05/18 18:00 Dose: 10 mg Budesonide (Pulmicort Respules) 0.25 mg IH [id number] [facility] Calcium Acetate (Phoslo) 667 mg PO WM [facility] Last Admin: 05/06/18 14:46 Dose: 667 mg Ferrous Gluconate (Fergon) 324 mg PO TID [facility] Last Admin: 05/06/18 14:45 Dose: 324 mg Furosemide (Lasix) 40 mg IVP BID [facility] Stop: 05/06/18 18:01 Last Admin: 05/06/18 09:16 Dose: 40 mg Pantoprazole Sodium (Protonix Ec Tab) 40 mg PO 0600 [facility] Last Admin: 05/06/18 06:17 Dose: 40 mg Sodium Bicarbonate (Sodium Bicarbonate Tab) 1,300 mg PO TID [facility] Last Admin: 05/06/18 14:46 Dose: 1,300 mg Tamsulosin HCl (Flomax) 0.4 mg PO DAILY [facility] Last Admin: 05/06/18 09:16 Dose: 0.4 mg Thiamine HCl (Vitamin B1 Tab) 100 mg PO DAILY [facility] Last Admin: 05/06/18 09:19 Dose: 100 mg Tramadol HCl (Ultram) 50 mg PO TID PRN PRN Reason: Pain, moderate (4-7) Last Admin: 05/01/18 11:51 Dose: 50 mg Vitamin B Complex/Vit C/Folic Acid (Nephro-Rober) 1 tab PO 0800 [facility] Last Admin: 05/06/18 09:17 Dose: 1 tab Warfarin Sodium (Coumadin) 6 mg PO 1800 [facility]; Protocol - Labs Labs: 05/06/18 06:00 05/06/18 06:00 PT 17.6 SECONDS (9.4-12.5) H 05/06/18 06:00 INR 1.52 05/06/18 06:00 APTT 30.7 Seconds (25.1-36.5) 05/06/18 06:00
--- NOTE | 2018-05-06 14:53 | CP.PCM.PN ---
Subjective - Date & Time of Evaluation Date of Evaluation: 05/06/18 Time of Evaluation: 14:00 - Subjective Subjective: Infectious Disease Follow Up: May 06, 2018 82 yo male seen in my office about 2 weeks ago. The patient with wound cultures that grew Serratia, Proteus, and MRSA from the past two months. Treatment with Home IV of Ceftriaxone and Vancomycin IV. Initial home chemistries showed a Creatinine of 1.7 (2 days into medication administration start). Labs repeats 5 days later showed a Vancomycin through of 79 and Creatinine of 2.9. Antibiotics were stopped and 1L of 1/s NS administered a day. Labs repeated 3 days later showed Creatinine of 4.0 and Vancomycin trough of 60. Informed the patient to come to [facility] for further evaluation and monitoring. The patient denies any problems or complaints but does admit now that his urinary frequency and volume had decreased. Still with no complaints. States that he is comfortable. Random Vancomycin level down to 35.4 on last check. Creatinine at 5.7 today and has still been rising. He is concerned more with his leg wounds and walking. He is blissfully unaware of how serious his kidney condition is despite multiple doctors explaining that to him. Patient refusing kidney biopsy at this time. Objective - Vital Signs/Intake and Output Vital Signs (last 24 hours): Temp Pulse Resp BP Pulse Ox 97.5 F L 79 20 135/70 98 05/05/18 06:00 05/05/18 10:28 05/05/18 06:00 05/06/18 09:18 05/05/18 06:00 Intake and Output: 05/06/18 05/06/18 06:59 18:59 Intake Total 800 Output Total 900 Balance -100 - Medications Medications: Current Medications Amlodipine Besylate (Norvasc) 10 mg PO DAILY [facility] Last Admin: 05/06/18 09:18 Dose: 10 mg Arformoterol Tartrate (Brovana) 15 mcg IH [id number] [facility] Atorvastatin Calcium (Lipitor) 10 mg PO DIN [facility] Last Admin: 05/05/18 18:00 Dose: 10 mg Budesonide (Pulmicort Respules) 0.25 mg IH [id number] [facility] Calcium Acetate (Phoslo) 667 mg PO WM [facility] Last Admin: 05/06/18 09:18 Dose: 667 mg Ferrous Gluconate (Fergon) 324 mg PO TID [facility] Last Admin: 12/06/18 09:15 Dose: 324 mg Furosemide (Lasix) 40 mg IVP BID [facility] Stop: 05/06/18 18:01 Last Admin: 05/06/18 09:16 Dose: 40 mg Pantoprazole Sodium (Protonix Ec Tab) 40 mg PO 0600 [facility] Last Admin: 05/06/18 06:17 Dose: 40 mg Sodium Bicarbonate (Sodium Bicarbonate Tab) 1,300 mg PO TID [facility] Last Admin: 05/06/18 09:18 Dose: 1,300 mg Tamsulosin HCl (Flomax) 0.4 mg PO DAILY [facility] Last Admin: 05/06/18 09:16 Dose: 0.4 mg Thiamine HCl (Vitamin B1 Tab) 100 mg PO DAILY [facility] Last Admin: 05/06/18 09:19 Dose: 100 mg Tramadol HCl (Ultram) 50 mg PO TID PRN PRN Reason: Pain, moderate (4-7) Last Admin: 05/01/18 11:51 Dose: 50 mg Vitamin B Complex/Vit C/Folic Acid (Nephro-Rober) 1 tab PO 0800 [facility] Last Admin: 05/06/18 09:17 Dose: 1 tab Warfarin Sodium (Coumadin) 6 mg PO 1800 [facility]; Protocol - Labs Labs: 05/06/18 06:00 05/06/18 06:00 PT 17.6 SECONDS (9.4-12.5) H 05/06/18 06:00 INR 1.52 05/06/18 06:00 APTT 30.7 Seconds (25.1-36.5) 05/06/18 06:00 - Constitutional Appears: Non-toxic, No Acute Distress, Chronically Ill - Head Exam Head Exam: ATRAUMATIC, NORMOCEPHALIC - Eye Exam Eye Exam: EOMI, PERRL Pupil Exam: NORMAL ACCOMODATION, PERRL - ENT Exam ENT Exam: Mucous Membranes Moist, Normal External Ear Exam, TM's Normal Bilaterally - Neck Exam Neck Exam: Full ROM, Normal Inspection - Respiratory Exam Respiratory Exam: Clear to Ausculation Bilateral, NORMAL BREATHING PATTERN. absent: Rales, Rhonchi, Wheezes - Cardiovascular Exam Cardiovascular Exam: REGULAR RHYTHM, RRR, +S1, +S2 - GI/Abdominal Exam GI & Abdominal Exam: Soft, Normal Bowel Sounds. absent: Distended, Tenderness - Extremities Exam Extremities Exam: Full ROM. absent: Joint Swelling, Pedal Edema Additional comments: Vasc: DP/PT 2/4. Skin temperature warm to warm from proximal to distal WNL. Cap refill < 3 seconds to all digits. No edema noted to right leg at this time Neuro: Epicritic and protective sensation grossly intact b/l Derm: An open wound at the surgical site of debridement and graft measure about 20cm X 4 cm X 0.3 cm. No pus, no purulent discharge or drainage, no clinical signs of infection. minimal periwound erythema. MSK: Minimal POP at the periwound site. ROM WNL at all major joints. Muscle power intact 5/5 in all major muscle groups. No other gross deformities noted Wound site is improved compared to two weeks ago. Patient had at least plus swelling at home of bilateral lower extremities that started 4 days prior to admission. - Neurological Exam Neurological Exam: Alert, Awake, CN II-XII Intact, Oriented x3 - Psychiatric Exam Psychiatric exam: Normal Affect, Normal Mood - Skin Additional comments: As per leg exam. Assessment and Plan - Assessment and Plan (Free Text) Assessment: 82 yo male with infected right leg with Serratia, Proteus, and MRSA in the past two months. The patient was given IV home infusion with IV Vancomycin and Rocephin. Unfortunately, the patient's renal function worsened over the course of a week to a creatinine of 4.0 and patient was told to come to the hospital for further evaluation. For now no further Vancomycin dosing. Recheck Vancomycin levels (random) periodically. Monitor Renal function. Strict output monitoring. Standard level Rocephin dosing. Wound care as per Dr. Pham. Case discussed with Dr. Pham prior to admission to [facility]. Evaluated by Renal Dr. Spears. Patient with minimal complaints. Unfortunately, the creatinine has increased to 5.4. Vancomycin level has decreased to 35.4. Stoooed all antibiotics at this time. Urine output remains extremely limited with a total of 50ml for the day. Rechecking Vancomycin level. Check I&O especially urinary output for this patient... noted that the patient has not been compliant with using the urinal. Thank you for allowing me to participate in the care of this patient, we will follow with you.
--- NOTE | 2018-05-06 15:02 | CP.PCM.PN ---
<Nikolas Duran - Last Filed: 05/06/18 15:00> Subjective - Date & Time of Evaluation Date of Evaluation: 05/06/18 Time of Evaluation: 15:00 - Subjective Subjective: Podiatry progress note for Dr. Leach 82 y/o M patient seen at bedside for right lower leg surgically debrided and grafted wound. Resting comfortably in bed. AAOX3 and NAD. Denies any acute events overnight. Reports that he had increasing pain to the right lower extremity overnight. Denies N/V/F/C/SOB/CP and has no other pedal complaints. Objective - Vital Signs/Intake and Output Vital Signs (last 24 hours): Temp Pulse Resp BP Pulse Ox 97.5 F L 79 20 135/70 98 05/05/18 06:00 05/05/18 10:28 05/05/18 06:00 05/06/18 09:18 05/05/18 06:00 Intake and Output: 05/06/18 05/06/18 06:59 18:59 Intake Total 800 Output Total 900 Balance -100 - Medications Medications: Current Medications Amlodipine Besylate (Norvasc) 10 mg PO DAILY [facility] Last Admin: 05/06/18 09:18 Dose: 10 mg Arformoterol Tartrate (Brovana) 15 mcg IH [id number] [facility] Atorvastatin Calcium (Lipitor) 10 mg PO DIN [facility] Last Admin: 05/05/18 18:00 Dose: 10 mg Budesonide (Pulmicort Respules) 0.25 mg IH [id number] [facility] Calcium Acetate (Phoslo) 667 mg PO WM [facility] Last Admin: 05/06/18 14:46 Dose: 667 mg Ferrous Gluconate (Fergon) 324 mg PO TID [facility] Last Admin: 05/06/18 14:45 Dose: 324 mg Furosemide (Lasix) 40 mg IVP BID [facility] Stop: 05/06/18 18:01 Last Admin: 05/06/18 09:16 Dose: 40 mg Pantoprazole Sodium (Protonix Ec Tab) 40 mg PO 0600 [facility] Last Admin: 05/06/18 06:17 Dose: 40 mg Sodium Bicarbonate (Sodium Bicarbonate Tab) 1,300 mg PO TID [facility] Last Admin: 05/06/18 14:46 Dose: 1,300 mg Tamsulosin HCl (Flomax) 0.4 mg PO DAILY [facility] Last Admin: 05/06/18 09:16 Dose: 0.4 mg Thiamine HCl (Vitamin B1 Tab) 100 mg PO DAILY [facility] Last Admin: 05/06/18 09:19 Dose: 100 mg Tramadol HCl (Ultram) 50 mg PO TID PRN PRN Reason: Pain, moderate (4-7) Last Admin: 05/01/18 11:51 Dose: 50 mg Vitamin B Complex/Vit C/Folic Acid (Nephro-Rober) 1 tab PO 0800 [facility] Last Admin: 05/06/18 09:17 Dose: 1 tab Warfarin Sodium (Coumadin) 6 mg PO 1800 [facility]; Protocol - Labs Labs: 05/06/18 06:00 05/06/18 06:00 PT 17.6 SECONDS (9.4-12.5) H 05/06/18 06:00 INR 1.52 05/06/18 06:00 APTT 30.7 Seconds (25.1-36.5) 05/06/18 06:00 - Constitutional Appears: Well, Non-toxic, No Acute Distress - Head Exam Head Exam: ATRAUMATIC, NORMOCEPHALIC - Extremities Exam Additional comments: RLE focused exam Vasc: DP/PT 2/4. Skin temperature warm to warm from proximal to distal WNL. Cap refill < 3 seconds to all digits. No edema noted to right leg at this time Neuro: Epicritic and protective sensation grossly intact b/l Derm: An open wound at the surgical site of debridement and graft measure about 20cm X 4 cm X 0.3 cm. No pus, no purulent dischargebut minimal serous drainage present, no clinical signs of infection. minimal periwound erythema. MSK: Mild Pain on palpation at the periwound site. ROM WNL at all major joints. Muscle power intact 5/5 in all major muscle groups. No other gross deformities noted - Neurological Exam Neurological Exam: Alert, Awake, Oriented x3 - Psychiatric Exam Psychiatric exam: Normal Affect, Normal Mood Assessment and Plan - Assessment and Plan (Free Text) Assessment: 82 y/o M patient seen at bedside for right lower leg surgically debrided and grafted wound. Plan: Patient seen and evaluated at the bedside. Discussed in plan detail with Dr. Leach Charts, labs and vitals reviewed; Afebrile, absent leukocytosis Dressing taken down, wound cleansed sterile saline, dressed with maxorb, ABD and DSD Wound Cx; Serratia Marcescens Right Leg MRI; No evidence of OM. B/L POLLO/PVR; Improved arterial wveform comared to the preinterventional study, Left SFA and tibial disease. Continue management as per primary team ID on board; recommendations appreciated As per ID due to deterioration of kidney functions; Vancomycin stopped Podiatry will continue to follow up the patient while in house <Lacey Leach - Last Filed: 05/07/18 14:43> Objective - Vital Signs/Intake and Output Vital Signs (last 24 hours): Temp Pulse Resp BP Pulse Ox 98.0 F 87 20 150/75 98 05/07/18 06:00 05/07/18 06:00 05/07/18 06:00 05/07/18 09:13 05/07/18 06:00 Intake and Output: 05/07/18 05/07/18 06:59 18:59 Intake Total 0 Balance 0 - Medications Medications: Current Medications Amlodipine Besylate (Norvasc) 10 mg PO DAILY [facility] Last Admin: 05/07/18 09:13 Dose: 10 mg Arformoterol Tartrate (Brovana) 15 mcg IH [id number] [facility] Last Admin: 05/07/18 07:28 Dose: 15 mcg Atorvastatin Calcium (Lipitor) 10 mg PO DIN [facility] Last Admin: 05/06/18 17:08 Dose: 10 mg Budesonide (Pulmicort Respules) 0.25 mg IH [id number] [facility] Last Admin: 05/07/18 07:28 Dose: 0.25 mg Calcium Acetate (Phoslo) 667 mg PO WM [facility] Last Admin: 05/07/18 13:42 Dose: 667 mg Darbepoetin José Miguel (Aranesp) 60 mcg SC QWK [facility] Ferrous Gluconate (Fergon) 324 mg PO TID [facility] Last Admin: 05/07/18 13:41 Dose: 324 mg Furosemide (Lasix) 40 mg PO DAILY [facility] Pantoprazole Sodium (Protonix Ec Tab) 40 mg PO 0600 [facility] Last Admin: 05/07/18 05:40 Dose: 40 mg Sodium Bicarbonate (Sodium Bicarbonate Tab) 1,300 mg PO BID [facility] Tamsulosin HCl (Flomax) 0.4 mg PO DAILY [facility] Last Admin: 05/07/18 09:12 Dose: 0.4 mg Thiamine HCl (Vitamin B1 Tab) 100 mg PO DAILY [facility] Last Admin: 05/07/18 09:15 Dose: 100 mg Tramadol HCl (Ultram) 50 mg PO TID PRN PRN Reason: Pain, moderate (4-7) Last Admin: 05/01/18 11:51 Dose: 50 mg Vitamin B Complex/Vit C/Folic Acid (Nephro-Rober) 1 tab PO 0800 [facility] Last Admin: 05/07/18 09:13 Dose: 1 tab Warfarin Sodium (Coumadin) 6 mg PO 1800 [facility]; Protocol Last Admin: 05/06/18 17:06 Dose: 6 mg - Labs Labs: 05/07/18 06:00 05/07/18 06:00 PT 17.6 SECONDS (9.4-12.5) H 05/06/18 06:00 INR 1.52 05/06/18 06:00 APTT 30.7 Seconds (25.1-36.5) 05/06/18 06:00 Attending/Attestation - Attestation I have personally seen and examined this patient.: Yes I have fully participated in the care of the patient.: Yes I have reviewed all pertinent clinical information, including history, physical exam and plan: Yes
[2018-05-06] MEDS: Budesonide 0.25 mg/2 ml Inhal Susp UD IH SCH (20:02)
[2018-05-06] MEDS: Arformoterol 15 mcg/2 ml Inh Sol IH SCH (20:02)
--- NOTE | 2018-05-06 20:18 | PN ---
DATE: 05/06/2018 SUBJECTIVE: The patient is 82 years old. Seen and examined. Sitting in chair. Seems to be comfortable. Anxious to go home. His right terrazas wound looks better. PHYSICAL EXAMINATION: VITAL SIGNS: He is afebrile, pulse 88, respirations 20, blood pressure 135/70. LUNGS: Bilateral fair airflow. No rhonchi or crackle. HEART: S1 and S2 audible. ABDOMEN: Soft, nontender. No rebound. No guarding. NEUROLOGIC: The patient is awake, alert, oriented. Communicative. Ambulatory. His urine output is 1100. LABORATORY EXAMINATION: WBC 8.4, hemoglobin 8.1, hematocrit 24.8, and platelet of 172. PT 17.6, INR 1.52. Chemistry: Sodium 138, potassium 4.3, chloride 107, CO2 of 26, BUN 47, creatinine 5.4, and blood sugar of . ASSESSMENT: 1. Acute on chronic renal failure. 2. Right terrazas infection. 3. Gastrointestinal bleed. 4. Peripheral vascular disease. 5. History of cirrhosis liver. 6. Chronic obstructive pulmonary disease. PLAN: I spoke to Dr. Melendez. The patient seems to be improving his BUN and creatinine. Hold off dialysis for now and monitor him closely. Currently, he is on Protonix. Follow up his CBC and electrolytes in a.m. Aquilino Garcia MD
[2018-05-06] MEDS ORDERED: Fluticasone-Salmeterol 100-50mcg Diskus IH SCH (22:00)
[2018-05-07] MEDS: Pantoprazole 40 mg EC Tab PO SCH (05:40)
[2018-05-07 06:58] LABS: BASO # 0.02 K/mm3 (0.0-2.0); BASO % 0.2 % (0.0-3.0); EOS # 0.7 (0.0-0.7); EOS % 7.6 % (1.5-5.0); GRAN # 5.76 (1.4-6.5); GRAN % 61.9 % (50.0-68.0); HEMOGLOBIN 9.1 g/dL (14.0-18.0); LYMPH # 1.8 (1.2-3.4); LYMPH % 19.8 % (22.0-35.0); MEAN CORPUSCULAR HEMOGLOBIN 29.4 pg (25.0-35.0); MEAN CORPUSCULAR HGB CONC 32.7 g/dl (31.0-37.0); MEAN PLATELET VOLUME 9.3 fl (7.0-11.0); MONO % 10.5 % (1.0-6.0); RBC 3.09 10^6/uL (3.5-6.1); RED CELL DISTRIBUTION WIDTH 14.8 % (11.5-14.5); WHITE BLOOD COUNT 9.3 10^3/uL (4.5-11.0)
[2018-05-07 07:12] LABS: ALB/GLOB RATIO 0.8 (1.1-1.8); ALBUMIN 3.2 g/dL (3.0-4.8); CALCIUM 8.1 mg/dL (8.4-10.5)
[2018-05-07] MEDS: Arformoterol 15 mcg/2 ml Inh Sol IH SCH ×2 (07:28→19:51)
[2018-05-07] MEDS: Budesonide 0.25 mg/2 ml Inhal Susp UD IH SCH ×2 (07:28→19:52)
[2018-05-07] MEDS: Multivitamin Vitamin B Complex (Nephro-Vite) Tab PO SCH (09:13)
--- NOTE | 2018-05-07 13:54 | CP.PCM.PN ---
Subjective - Date & Time of Evaluation Date of Evaluation: 05/07/18 Time of Evaluation: 13:54 - Subjective Subjective: Nephrology Consultation Note: Assessment: stable Acute Kidney Injury (N17.9) likely AIN due to abx as also with peripheral eosinophilia and or vancomycin nephrotoxicity. also with igG [place] paraproteinemia Hypertensive Chronic Kidney Disease (I12.9) Chronic Kidney Disease (N18.3) Stage 3 with ? mg proteinuria (R80.9) acute on chronic anemia, FOB + with hx of gastric ulcer COPD, DVT, hx of Etoh and smoking hypoalbuminemia, metabolic acidosis hypomag, hyperphos Plan No acute need for renal replacement therapy at this time but may need soon and will need close follow up. Hypertension control with meds as ordered. Maintain hemodynamics stable. Avoid hypotension. Patient not on ACEI/ARB due to recent HARSH. Monitor Input/Output, daily weights and renal function with basic metabolic panel added iron, MVI, phos binders and sodium bicarb. aransep 60 mcg on 05/03/18 added PPI and thiamine as well added flomax as PVR 168 mL GI follow up noted pt not a candidate for treatment with steroids due to hx gastric ulcer, active infection, FOB + with anemia. risks outweighs less certain benefits. continue with lasix 40 mg orally daily. medical management of hyperkalemia as needed can consider kidney biopsy however pt refusing and doesn't understand risks/benefit. d/w daughter and she want to hold off as well. consider heme eval for anemia and paraproteinemia Dose meds/antibiotics for reduced GFR. Avoid fleets enema/magnesium based laxatives. Avoid nephrotoxins/NSAIDs/ iodinated contrast (unless needed emergently) Glycemic control Further work up/management as per primary team Thanks for allowing me to participate in care of your patient. Will follow patient with you. Please call if any Qs. had d/w team Dr Froilan Spears Office: [phone] Chief Complaint; leg swelling Reason for consult: Acute Kidney Injury HPI: Pt is a 82 M with hx of HTN, COPD, DVT on coumadin, etoh/smoker (quit 6 months ago), anemia, CKD 3 with baseline cr 1.4-1.5 presented with complaints of abnormal kidney fxn and HARSH Denies OTC/herbal meds or NSAIDs No recent iodinated contrast exposure. No obvious episodes of low BP. pt was treated with abx recently as vanco and cephalosporins pt not aware about kidney disease in past. feels in usual health except rt leg swelling ROS: wants to go home Cardiovascular: No chest pain. Pulmonary: No shortness of breath now Gastrointestinal: denies abdominal pain No nausea. No vomiting. Genitourinary: No pain while urinating. Denies blood in urine. All other negative except as mentioned in HPI Physical Examination: General Appearance: Comfortable, in no acute respiratory distress, co-operative. somewhat cachexic Vitals reviewed and noted as below Head; Atraumatic, normocephalic ENT: no ulcers no thrush. Tongue is midline. Oropharynx: no rash or ulcers. EYES: Pupils are equal, round and reactive to light accommodation. Eye muscles and extraocular movement intact. Sclera is anicteric. Neck; supple no lymphadenopathy, no thyromegaly or bruit Lungs: Normal respiratory rate/effort. Breath sounds bilateral clearer Heart: Normal rate. s1s2 normal. No rub or gallop. Extremities: no edema. No varicose veins. RLE swelling, dressing + Neurological: Patient is alert, awake and oriented to person, place and time. No focal deficit. Strength bilateral appropriate and equal Skin: Warm and dry. Normal turgor. No rash. Palpitation: Normal elasticity for age Abdomen: Abdomen is soft. Bowel sounds +. There is no abdominal tenderness, no guarding/rigidity ? hepatomegaly Psych: lack insight and normal affect/mood MSK: no joint tenderness or swelling. Digits and nails normal, no deformity : kidney not palpable Labs/imaging reviewed. Past medical history, past surgical history, family history, social history, allergy reviewed and noted as below Family hx: no hx of CKD. Rest non-contributory Objective - Vital Signs/Intake and Output Vital Signs (last 24 hours): Temp Pulse Resp BP Pulse Ox 98.0 F 87 20 150/75 98 05/07/18 06:00 05/07/18 06:00 05/07/18 06:00 05/07/18 09:13 05/07/18 06:00 Intake and Output: 05/07/18 05/07/18 06:59 18:59 Intake Total 0 Balance 0 - Medications Medications: Current Medications Amlodipine Besylate (Norvasc) 10 mg PO DAILY [facility] Last Admin: 05/07/18 09:13 Dose: 10 mg Arformoterol Tartrate (Brovana) 15 mcg IH [id number] [facility] Last Admin: 05/07/18 07:28 Dose: 15 mcg Atorvastatin Calcium (Lipitor) 10 mg PO DIN [facility] Last Admin: 05/06/18 17:08 Dose: 10 mg Budesonide (Pulmicort Respules) 0.25 mg IH [id number] [facility] Last Admin: 05/07/18 07:28 Dose: 0.25 mg Calcium Acetate (Phoslo) 667 mg PO WM [facility] Last Admin: 05/07/18 13:42 Dose: 667 mg Darbepoetin José Miguel (Aranesp) 60 mcg SC QWK [facility] Ferrous Gluconate (Fergon) 324 mg PO TID [facility] Last Admin: 05/07/18 13:41 Dose: 324 mg Furosemide (Lasix) 40 mg PO DAILY [facility] Pantoprazole Sodium (Protonix Ec Tab) 40 mg PO 0600 [facility] Last Admin: 05/07/18 05:40 Dose: 40 mg Sodium Bicarbonate (Sodium Bicarbonate Tab) 1,300 mg PO BID [facility] Tamsulosin HCl (Flomax) 0.4 mg PO DAILY [facility] Last Admin: 05/07/18 09:12 Dose: 0.4 mg Thiamine HCl (Vitamin B1 Tab) 100 mg PO DAILY [facility] Last Admin: 05/07/18 09:15 Dose: 100 mg Tramadol HCl (Ultram) 50 mg PO TID PRN PRN Reason: Pain, moderate (4-7) Last Admin: 05/01/18 11:51 Dose: 50 mg Vitamin B Complex/Vit C/Folic Acid (Nephro-Rober) 1 tab PO 0800 [facility] Last Admin: 05/07/18 09:13 Dose: 1 tab Warfarin Sodium (Coumadin) 6 mg PO 1800 [facility]; Protocol Last Admin: 05/06/18 17:06 Dose: 6 mg - Labs Labs: 05/07/18 06:00 05/07/18 06:00 PT 17.6 SECONDS (9.4-12.5) H 05/06/18 06:00 INR 1.52 05/06/18 06:00 APTT 30.7 Seconds (25.1-36.5) 05/06/18 06:00
--- NOTE | 2018-05-07 14:10 | PN ---
DATE: 05/07/2018 SUBJECTIVE: The patient is 82-year-old, seen and examined, laying in bed, seems to be comfortable, and wants to go home. He says he is feeling better. Eating and tolerating. No fever. No chills. No nausea. No vomiting. No diarrhea. PHYSICAL EXAMINATION VITAL SIGNS: He is afebrile. Pulse 87, respirations 20, and blood pressure 150/75. LUNGS: Bilateral fair airflow. No rhonchi or crackle. HEART: S1 and S2 audible. ABDOMEN: Soft and nontender. No rebound. No guarding. NEUROLOGICAL: He is awake, alert, oriented, and communicative. EXTREMITIES: in the dressing. LABORATORY DATA: WBC is 9.3, hemoglobin 9.1, hematocrit 27.8, and platelet of 198. His PT is 17.6 and INR 1.52. Chemistry; sodium 137, potassium 4.1, chloride 103, CO2 of 25, BUN 49, creatinine 5.8. Blood sugar of 105. ASSESSMENT AND PLAN: 1. Acute on chronic renal failure. 2. Right terrazas cellulitis, improving. 3. Right leg deep vein thrombosis. 4. Status post angioplasty. 5. History of active smoking. 6. Chronic obstructive pulmonary disease. PLAN: I did have discussion about starting him on dialysis since he started leaking urine, it was held off for now. He is on Coumadin 6 mg daily. He is on Lasix 40 mg daily. We will continue him on statins. He is now on amlodipine. Tramadol as needed. We will follow up his CMP in a.m. Continue local wound care. Currently, he is off of antibiotics. Aquilino Garcia MD
--- NOTE | 2018-05-07 14:21 | CP.PCM.PCO ---
Physician Communication Note - Physician Communication Note Physician Communication Note: as per Nephrology will monitor creat. over weekend secondary to increase
--- NOTE | 2018-05-07 15:11 | CP.PCM.PN ---
Subjective - Date & Time of Evaluation Date of Evaluation: 05/07/18 Time of Evaluation: 14:00 - Subjective Subjective: Infectious Disease Follow Up: May 07, 2018 82 yo male seen in my office about 2 weeks ago. The patient with wound cultures that grew Serratia, Proteus, and MRSA from the past two months. Treatment with Home IV of Ceftriaxone and Vancomycin IV. Initial home chemistries showed a Creatinine of 1.7 (2 days into medication administration start). Labs repeats 5 days later showed a Vancomycin through of 79 and Creatinine of 2.9. Antibiotics were stopped and 1L of 1/s NS administered a day. Labs repeated 3 days later showed Creatinine of 4.0 and Vancomycin trough of 60. Informed the patient to come to [facility] [place] further evaluation and monitoring. The patient denies any problems or complaints but does admit now that his urinary frequency and volume had decreased. Still with no complaints. States that he is comfortable. Random Vancomycin level down to 35.4 on last check. Creatinine at 5.8 today and has still been rising. He is concerned more with his leg wounds and walking. He is blissfully unaware of how serious his kidney condition is despite multiple doctors explaining that to him. Patient refusing kidney biopsy at this time. Objective - Vital Signs/Intake and Output Vital Signs (last 24 hours): Temp Pulse Resp BP Pulse Ox 98.0 F 87 20 150/75 98 05/07/18 06:00 05/07/18 06:00 05/07/18 06:00 05/07/18 09:13 05/07/18 06:00 Intake and Output: 05/07/18 05/07/18 06:59 18:59 Intake Total 0 Balance 0 - Medications Medications: Current Medications Amlodipine Besylate (Norvasc) 10 mg PO DAILY [facility] Last Admin: 05/07/18 09:13 Dose: 10 mg Arformoterol Tartrate (Brovana) 15 mcg IH [id number] [facility] Last Admin: 05/07/18 07:28 Dose: 15 mcg Atorvastatin Calcium (Lipitor) 10 mg PO DIN [facility] Last Admin: 05/06/18 17:08 Dose: 10 mg Budesonide (Pulmicort Respules) 0.25 mg IH [id number] [facility] Last Admin: 05/07/18 07:28 Dose: 0.25 mg Calcium Acetate (Phoslo) 667 mg PO WM [facility] Last Admin: 05/07/18 13:42 Dose: 667 mg Darbepoetin José Miguel (Aranesp) 60 mcg SC QWK [facility] Ferrous Gluconate (Fergon) 324 mg PO TID [facility] Last Admin: 05/07/18 13:41 Dose: 324 mg Furosemide (Lasix) 40 mg PO DAILY [facility] Pantoprazole Sodium (Protonix Ec Tab) 40 mg PO 0600 [facility] Last Admin: 05/07/18 05:40 Dose: 40 mg Sodium Bicarbonate (Sodium Bicarbonate Tab) 1,300 mg PO BID [facility] Tamsulosin HCl (Flomax) 0.4 mg PO DAILY [facility] Last Admin: 05/07/18 09:12 Dose: 0.4 mg Thiamine HCl (Vitamin B1 Tab) 100 mg PO DAILY [facility] Last Admin: 05/07/18 09:15 Dose: 100 mg Tramadol HCl (Ultram) 50 mg PO TID PRN PRN Reason: Pain, moderate (4-7) Last Admin: 05/01/18 11:51 Dose: 50 mg Vitamin B Complex/Vit C/Folic Acid (Nephro-Rober) 1 tab PO 0800 [facility] Last Admin: 05/07/18 09:13 Dose: 1 tab Warfarin Sodium (Coumadin) 6 mg PO 1800 [facility]; Protocol Last Admin: 05/06/18 17:06 Dose: 6 mg - Labs Labs: 05/07/18 06:00 05/07/18 06:00 PT 17.6 SECONDS (9.4-12.5) H 05/06/18 06:00 INR 1.52 05/06/18 06:00 APTT 30.7 Seconds (25.1-36.5) 05/06/18 06:00 - Constitutional Appears: Non-toxic, No Acute Distress, Chronically Ill - Head Exam Head Exam: ATRAUMATIC, NORMOCEPHALIC - Eye Exam Eye Exam: EOMI, PERRL Pupil Exam: NORMAL ACCOMODATION, PERRL - ENT Exam ENT Exam: Mucous Membranes Moist, Normal External Ear Exam, TM's Normal Bilat erally - Neck Exam Neck Exam: Full ROM, Normal Inspection - Respiratory Exam Respiratory Exam: Clear to Ausculation Bilateral, NORMAL BREATHING PATTERN. absent: Rales, Rhonchi, Wheezes - Cardiovascular Exam Cardiovascular Exam: REGULAR RHYTHM, RRR, +S1, +S2 - GI/Abdominal Exam GI & Abdominal Exam: Soft, Normal Bowel Sounds. absent: Distended, Tenderness - Extremities Exam Extremities Exam: Full ROM. absent: Joint Swelling, Pedal Edema Additional comments: Vasc: DP/PT 2/4. Skin temperature warm to warm from proximal to distal WNL. Cap refill < 3 seconds to all digits. No edema noted to right leg at this time Neuro: Epicritic and protective sensation grossly intact b/l Derm: An open wound at the surgical site of debridement and graft measure about 20cm X 4 cm X 0.3 cm. No pus, no purulent discharge or drainage, no clinical signs of infection. minimal periwound erythema. MSK: Minimal POP at the periwound site. ROM WNL at all major joints. Muscle power intact 5/5 in all major muscle groups. No other gross deformities noted Wound site is improved compared to two weeks ago. Patient had at least plus swelling at home of bilateral lower extremities that started 4 days prior to admission. - Neurological Exam Neurological Exam: Alert, Awake, CN II-XII Intact, Oriented x3 - Psychiatric Exam Psychiatric exam: Normal Affect, Normal Mood - Skin Additional comments: As per leg exam. Assessment and Plan - Assessment and Plan (Free Text) Assessment: 82 yo male with infected right leg with Serratia, Proteus, and MRSA in the past two months. The patient was given IV home infusion with IV Vancomycin and Rocephin. Unfortunately, the patient's renal function worsened over the course of a week to a creatinine of 4.0 and patient was told to come to the hospital for further evaluation. For now no further Vancomycin dosing. Recheck Vancomycin levels (random) periodically. Monitor Renal function. Strict output monitoring. Standard level Rocephin dosing. Wound care as per Dr. Pham. Case discussed with Dr. Pham prior to admission to [facility] Evaluated by Renal Dr. Spears. Patient with minimal complaints. Unfortunately, the creatinine has increased to 5.8. Vancomycin level has decreased to 32.1. Stoooed all antibiotics at this time. Urine output remains extremely limited with a total of 1700 ml for the day. Rechecking Vancomycin level. Check I&O especially urinary output for this patient... noted that the patient has not been compliant with using the urinal. Continue off of antibiotics. Thank you for allowing me to participate in the care of this patient, we will follow with you.
--- NOTE | 2018-05-07 15:11 | CP.PCM.PN ---
<Nikolas Duran - Last Filed: 05/07/18 15:09> Subjective - Date & Time of Evaluation Date of Evaluation: 05/07/18 Time of Evaluation: 15:09 - Subjective Subjective: Podiatry progress note for Dr. Pham 82 y/o M patient seen at bedside for right lower leg surgically debrided and grafted wound. Resting comfortably in bed. AAOX3 and NAD. Denies any acute events overnight. Reports that he didn't have any pain to the right lower extremity overnight. Denies N/V/F/C/SOB/CP and has no other pedal complaints. Objective - Vital Signs/Intake and Output Vital Signs (last 24 hours): Temp Pulse Resp BP Pulse Ox 98.0 F 87 20 150/75 98 05/07/18 06:00 05/07/18 06:00 05/07/18 06:00 05/07/18 09:13 05/07/18 06:00 Intake and Output: 05/07/18 05/07/18 06:59 18:59 Intake Total 0 Balance 0 - Medications Medications: Current Medications Amlodipine Besylate (Norvasc) 10 mg PO DAILY [facility] Last Admin: 05/07/18 09:13 Dose: 10 mg Arformoterol Tartrate (Brovana) 15 mcg IH [id number] [facility] Last Admin: 05/07/18 07:28 Dose: 15 mcg Atorvastatin Calcium (Lipitor) 10 mg PO DIN [facility] Last Admin: 05/06/18 17:08 Dose: 10 mg Budesonide (Pulmicort Respules) 0.25 mg IH [id number] [facility] Last Admin: 05/07/18 07:28 Dose: 0.25 mg Calcium Acetate (Phoslo) 667 mg PO WM [facility] Last Admin: 05/07/18 13:42 Dose: 667 mg Darbepoetin José Miguel (Aranesp) 60 mcg SC QWK [facility] Ferrous Gluconate (Fergon) 324 mg PO TID [facility] Last Admin: 05/07/18 13:41 Dose: 324 mg Furosemide (Lasix) 40 mg PO DAILY [facility] Pantoprazole Sodium (Protonix Ec Tab) 40 mg PO 0600 [facility] Last Admin: 05/07/18 05:40 Dose: 40 mg Sodium Bicarbonate (Sodium Bicarbonate Tab) 1,300 mg PO BID [facility] Tamsulosin HCl (Flomax) 0.4 mg PO DAILY [facility] Last Admin: 05/07/18 09:12 Dose: 0.4 mg Thiamine HCl (Vitamin B1 Tab) 100 mg PO DAILY [facility] Last Admin: 05/07/18 09:15 Dose: 100 mg Tramadol HCl (Ultram) 50 mg PO TID PRN PRN Reason: Pain, moderate (4-7) Last Admin: 05/01/18 11:51 Dose: 50 mg Vitamin B Complex/Vit C/Folic Acid (Nephro-Rober) 1 tab PO 0800 [facility] Last Admin: 05/07/18 09:13 Dose: 1 tab Warfarin Sodium (Coumadin) 6 mg PO 1800 [facility]; Protocol Last Admin: 05/06/18 17:06 Dose: 6 mg - Labs Labs: 05/07/18 06:00 05/07/18 06:00 PT 17.6 SECONDS (9.4-12.5) H 05/06/18 06:00 INR 1.52 05/06/18 06:00 APTT 30.7 Seconds (25.1-36.5) 05/06/18 06:00 - Constitutional Appears: Well, No Acute Distress - Head Exam Head Exam: ATRAUMATIC, NORMOCEPHALIC - Extremities Exam Additional comments: RLE focused exam Vasc: DP/PT 2/4. Skin temperature warm to warm from proximal to distal WNL. Cap refill < 3 seconds to all digits. No edema noted to right leg at this time Neuro: Epicritic and protective sensation grossly intact b/l Derm: An open wound at the surgical site of debridement and graft measure about 20cm X 4 cm X 0.3 cm. No pus, no purulent dischargebut minimal serous drainage present, no clinical signs of infection. minimal periwound erythema. MSK: Mild Pain on palpation at the periwound site. ROM WNL at all major joints. Muscle power intact 5/5 in all major muscle groups. No other gross deformities noted - Neurological Exam Neurological Exam: Alert, Awake, Oriented x3 - Psychiatric Exam Psychiatric exam: Normal Affect, Normal Mood Assessment and Plan - Assessment and Plan (Free Text) Assessment: 82 y/o M patient seen at bedside for right lower leg surgically debrided and grafted wound. Plan: Patient seen and evaluated at the bedside. Discussed in plan detail with Dr. Pham Charts, labs and vitals reviewed; Afebrile, absent leukocytosis Dressing taken down, wound cleansed sterile saline, dressed with maxorb, ABD and DSD Wound Cx; Serratia Marcescens Right Leg MRI; No evidence of OM. B/L POLLO/PVR; Improved arterial waveform compared to the preinterventional study, Left SFA and tibial disease. Continue management as per primary team ID on board; recommendations appreciated As per ID due to deterioration of kidney functions; Vancomycin stopped Podiatry will continue to follow up the patient while in house <Van Pham - Last Filed: 05/08/18 08:24> Objective - Vital Signs/Intake and Output Vital Signs (last 24 hours): Temp Pulse Resp BP Pulse Ox 98.1 F 92 H 18 146/75 94 L 05/08/18 06:00 05/08/18 06:00 05/08/18 06:00 05/08/18 06:00 05/08/18 06:00 Intake and Output: 05/08/18 05/08/18 06:59 18:59 Intake Total 600 Output Total 550 Balance 50 - Medications Medications: Current Medications Amlodipine Besylate (Norvasc) 10 mg PO DAILY [facility] Last Admin: 05/07/18 09:13 Dose: 10 mg Arformoterol Tartrate (Brovana) 15 mcg IH [id number] [facility] Last Admin: 05/08/18 08:17 Dose: 15 mcg Atorvastatin Calcium (Lipitor) 10 mg PO DIN [facility] Last Admin: 05/07/18 17:06 Dose: 10 mg Budesonide (Pulmicort Respules) 0.25 mg IH [id number] [facility] Last Admin: 05/08/18 08:18 Dose: 0.25 mg Calcium Acetate (Phoslo) 667 mg PO WM [facility] Last Admin: 05/07/18 17:06 Dose: 667 mg Darbepoetin José Miguel (Aranesp) 60 mcg SC QWK [facility] Ferrous Gluconate (Fergon) 324 mg PO TID [facility] Last Admin: 05/07/18 17:06 Dose: 324 mg Furosemide (Lasix) 40 mg PO DAILY [facility] Pantoprazole Sodium (Protonix Ec Tab) 40 mg PO 0600 [facility] Last Admin: 05/08/18 05:59 Dose: 40 mg Sodium Bicarbonate (Sodium Bicarbonate Tab) 1,300 mg PO BID [facility] Last Admin: 05/07/18 17:07 Dose: 1,300 mg Tamsulosin HCl (Flomax) 0.4 mg PO DAILY [facility] Last Admin: 05/07/18 09:12 Dose: 0.4 mg Thiamine HCl (Vitamin B1 Tab) 100 mg PO DAILY [facility] Last Admin: 05/07/18 09:15 Dose: 100 mg Tramadol HCl (Ultram) 50 mg PO TID PRN PRN Reason: Pain, moderate (4-7) Last Admin: 05/01/18 11:51 Dose: 50 mg Vitamin B Complex/Vit C/Folic Acid (Nephro-Rober) 1 tab PO 0800 [facility] Last Admin: 05/07/18 09:13 Dose: 1 tab Warfarin Sodium (Coumadin) 6 mg PO 1800 [facility]; Protocol Last Admin: 05/07/18 17:05 Dose: 6 mg - Labs Labs: 05/07/18 06:00 05/07/18 06:00 PT 17.6 SECONDS (9.4-12.5) H 05/06/18 06:00 INR 1.52 05/06/18 06:00 APTT 30.7 Seconds (25.1-36.5) 05/06/18 06:00 Attending/Attestation - Attestation I have personally seen and examined this patient.: Yes I have fully participated in the care of the patient.: Yes I have reviewed all pertinent clinical information, including history, physical exam and plan: Yes
[2018-05-08] MEDS: Pantoprazole 40 mg EC Tab PO SCH (05:59)
[2018-05-08] MEDS: Arformoterol 15 mcg/2 ml Inh Sol IH SCH ×2 (08:17→21:46)
[2018-05-08] MEDS: Budesonide 0.25 mg/2 ml Inhal Susp UD IH SCH ×2 (08:18→21:46)
[2018-05-08 08:42] LABS: ALB/GLOB RATIO 0.8 (1.1-1.8); ALBUMIN 3.1 g/dL (3.0-4.8); CALCIUM 8.3 mg/dL (8.4-10.5)
[2018-05-08] MEDS: Multivitamin Vitamin B Complex (Nephro-Vite) Tab PO SCH (09:04)
--- NOTE | 2018-05-08 10:08 | CP.PCM.PN ---
<Devi Lackey - Last Filed: 05/08/18 10:07> Subjective - Date & Time of Evaluation Date of Evaluation: 05/08/18 Time of Evaluation: 10:07 - Subjective Subjective: Podiatry progress note for Dr. Pham 82 y/o M patient seen at bedside for right lower leg surgically debrided and grafted wound. Resting comfortably in bed. AAOX3 and NAD. Denies any acute events overnight. Reports that he didn't have any pain to the right lower extremity overnight. Denies N/V/F/C/SOB/CP and has no other pedal complaints. Objective - Vital Signs/Intake and Output Vital Signs (last 24 hours): Temp Pulse Resp BP Pulse Ox 98.1 F 92 H 18 146/75 94 L 05/08/18 06:00 05/08/18 06:00 05/08/18 06:00 05/08/18 09:04 05/08/18 06:00 Intake and Output: 05/08/18 05/08/18 06:59 18:59 Intake Total 600 Output Total 550 Balance 50 - Medications Medications: Current Medications Amlodipine Besylate (Norvasc) 10 mg PO DAILY [facility] Last Admin: 05/08/18 09:04 Dose: 10 mg Arformoterol Tartrate (Brovana) 15 mcg IH [id number] [facility] Last Admin: 05/08/18 08:17 Dose: 15 mcg Atorvastatin Calcium (Lipitor) 10 mg PO DIN [facility] Last Admin: 05/07/18 17:06 Dose: 10 mg Budesonide (Pulmicort Respules) 0.25 mg IH [id number] [facility] Last Admin: 05/08/18 08:18 Dose: 0.25 mg Calcium Acetate (Phoslo) 667 mg PO WM [facility] Last Admin: 05/08/18 09:05 Dose: 667 mg Darbepoetin José Miguel (Aranesp) 60 mcg SC QWK [facility] Ferrous Gluconate (Fergon) 324 mg PO TID [facility] Last Admin: 05/08/18 09:03 Dose: 324 mg Furosemide (Lasix) 40 mg PO DAILY [facility] Last Admin: 05/08/18 09:04 Dose: 40 mg Pantoprazole Sodium (Protonix Ec Tab) 40 mg PO 0600 [facility] Last Admin: 05/08/18 05:59 Dose: 40 mg Sodium Bicarbonate (Sodium Bicarbonate Tab) 1,300 mg PO BID [facility] Last Admin: 05/08/18 09:05 Dose: 1,300 mg Tamsulosin HCl (Flomax) 0.4 mg PO DAILY [facility] Last Admin: 05/08/18 09:04 Dose: 0.4 mg Thiamine HCl (Vitamin B1 Tab) 100 mg PO DAILY [facility] Last Admin: 05/08/18 09:06 Dose: 100 mg Tramadol HCl (Ultram) 50 mg PO TID PRN PRN Reason: Pain, moderate (4-7) Last Admin: 05/01/18 11:51 Dose: 50 mg Vitamin B Complex/Vit C/Folic Acid (Nephro-Rober) 1 tab PO 0800 [facility] Last Admin: 05/08/18 09:04 Dose: 1 tab Warfarin Sodium (Coumadin) 6 mg PO 1800 [facility]; Protocol Last Admin: 05/07/18 17:05 Dose: 6 mg - Labs Labs: 05/07/18 06:00 05/08/18 08:01 PT 17.6 SECONDS (9.4-12.5) H 05/06/18 06:00 INR 1.52 05/06/18 06:00 APTT 30.7 Seconds (25.1-36.5) 05/06/18 06:00 - Constitutional Appears: Well, Non-toxic, No Acute Distress - Extremities Exam Additional comments: RLE focused exam Vasc: DP/PT 2/4. Skin temperature warm to warm from proximal to distal WNL. Cap refill < 3 seconds to all digits. No edema noted to right leg at this time Neuro: Epicritic and protective sensation grossly intact b/l Derm: An open wound at the surgical site of debridement and graft measure about 20cm X 4 cm X 0.3 cm. No pus, no purulent dischargebut minimal serous drainage present, no clinical signs of infection. minimal periwound erythema. MSK: Mild Pain on palpation at the periwound site. ROM WNL at all major joints. Muscle power intact 5/5 in all major muscle groups. No other gross deformities noted - Neurological Exam Neurological Exam: Alert, Awake, Oriented x3 - Psychiatric Exam Psychiatric exam: Normal Affect, Normal Mood Assessment and Plan - Assessment and Plan (Free Text) Assessment: 82 y/o M patient seen at bedside for right lower leg surgically debrided and grafted wound. Plan: Patient seen and evaluated at the bedside. Discussed in plan detail with Dr. Pham Charts, labs and vitals reviewed; Afebrile, absent leukocytosis Dressing taken down, wound cleansed sterile saline, dressed with maxorb, ABD and DSD Wound Cx; Serratia Marcescens Right Leg MRI; No evidence of OM. B/L POLLO/PVR; Improved arterial waveform compared to the preinterventional study, Left SFA and tibial disease. Continue management as per primary team ID on board; recommendations appreciated As per ID due to deterioration of kidney functions; Vancomycin stopped Podiatry will continue to follow up the patient while in house <Van Pham - Last Filed: 05/10/18 10:22> Objective - Vital Signs/Intake and Output Vital Signs (last 24 hours): Temp Pulse Resp BP Pulse Ox 98.6 F 87 20 117/63 98 05/10/18 08:05 05/10/18 08:05 05/10/18 08:05 05/10/18 09:55 05/10/18 08:05 Intake and Output: 05/10/18 05/10/18 06:59 18:59 Intake Total 680 450 Output Total 200 200 Balance 480 250 - Medications Medications: Current Medications Amlodipine Besylate (Norvasc) 10 mg PO DAILY [facility] Last Admin: 05/10/18 09:54 Dose: Not Given Arformoterol Tartrate (Brovana) 15 mcg IH [id number] [facility] Last Admin: 05/10/18 08:26 Dose: 15 mcg Atorvastatin Calcium (Lipitor) 10 mg PO DIN [facility] Last Admin: 05/09/18 18:06 Dose: 10 mg Budesonide (Pulmicort Respules) 0.25 mg IH [id number] [facility] Last Admin: 05/10/18 08:26 Dose: 0.25 mg Calcium Acetate (Phoslo) 667 mg PO WM [facility] Last Admin: 05/10/18 09:55 Dose: 667 mg Darbepoetin José Miguel (Aranesp) 60 mcg SC QWK [facility] Ferrous Gluconate (Fergon) 324 mg PO TID [facility] Last Admin: 05/10/18 09:52 Dose: 324 mg Furosemide (Lasix) 40 mg PO DAILY [facility] Last Admin: 05/10/18 09:55 Dose: Not Given Pantoprazole Sodium (Protonix Ec Tab) 40 mg PO 0600 [facility] Last Admin: 05/10/18 05:26 Dose: 40 mg Sodium Bicarbonate (Sodium Bicarbonate Tab) 1,300 mg PO BID [facility] Last Admin: 05/10/18 09:52 Dose: 1,300 mg Tamsulosin HCl (Flomax) 0.4 mg PO DAILY [facility] Last Admin: 05/10/18 09:55 Dose: 0.4 mg Thiamine HCl (Vitamin B1 Tab) 100 mg PO DAILY [facility] Last Admin: 05/10/18 09:55 Dose: 100 mg Tramadol HCl (Ultram) 50 mg PO TID PRN PRN Reason: Pain, moderate (4-7) Last Admin: 05/10/18 09:54 Dose: 50 mg Vitamin B Complex/Vit C/Folic Acid (Nephro-Rober) 1 tab PO 0800 [facility] Last Admin: 05/10/18 09:53 Dose: 1 tab Warfarin Sodium (Coumadin) 6 mg PO 1800 [facility]; Protocol Last Admin: 05/09/18 18:06 Dose: 6 mg - Labs Labs: 05/09/18 07:42 05/09/18 07:42 PT 23.9 SECONDS (9.4-12.5) H 05/09/18 07:42 INR 2.05 05/09/18 07:42 APTT 30.7 Seconds (25.1-36.5) 05/06/18 06:00 Attending/Attestation - Attestation I have personally seen and examined this patient.: Yes I have fully participated in the care of the patient.: Yes I have reviewed all pertinent clinical information, including history, physical exam and plan: Yes
--- NOTE | 2018-05-08 13:06 | CP.PCM.PN ---
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 also with igG Delmar paraproteinemia Hypertensive Chronic Kidney Disease (I12.9) Chronic Kidney Disease (N18.3) Stage 3 with ? mg proteinuria (R80.9) acute on chronic anemia, FOB + with hx of gastric ulcer COPD, DVT, hx of Etoh and smoking hypoalbuminemia, metabolic acidosis hypomag, hyperphos Plan No acute need for renal replacement therapy at this time cr slightly improved today Hypertension control with meds as ordered. Maintain hemodynamics stable. Avoid hypotension. Patient not on ACEI/ARB due to recent HARSH. Monitor Input/Output, daily weights and renal function with basic metabolic panel on iron and bicarb and phoslo s/p aransep 60 mcg on 05/03/18 on flomax f/u gi pt not a candidate for treatment with steroids due to hx gastric ulcer, active infection, FOB + with anemia. risks outweighs less certain benefits. can consider kidney biopsy however pt refusing and doesn't understand risks/benefit. discussion w/ daugther previously same wants to hold off consider heme eval for paraprotein S: seen and examined wants to go home Physical Examination: General Appearance: Comfortable, in no acute respiratory distress, co-operative. somewhat cachexic Vitals reviewed and noted as below Head; Atraumatic, normocephalic ENT: no ulcers no thrush. Tongue is midline. Oropharynx: no rash or ulcers. EYES: Pupils are equal, round and reactive to light accommodation. Eye muscles and extraocular movement intact. Sclera is anicteric. Neck; supple no lymphadenopathy, no thyromegaly or bruit Lungs: Normal respiratory rate/effort. Breath sounds bilateral clearer Heart: Normal rate. s1s2 normal. No rub or gallop. Extremities: no edema. No varicose veins. RLE swelling, dressing + Neurological: Patient is alert, awake and oriented to person, place and time. No focal deficit. Strength bilateral appropriate and equal Skin: Warm and dry. Normal turgor. No rash. Palpitation: Normal elasticity for age Abdomen: Abdomen is soft. Bowel sounds +. There is no abdominal tenderness, no guarding/rigidity ? hepatomegaly Psych: lack insight and normal affect/mood MSK: no joint tenderness or swelling. Digits and nails normal, no deformity : kidney not palpable Labs/imaging reviewed. Past medical history, past surgical history, family history, social history, allergy reviewed and noted as below Family hx: no hx of CKD. Rest non-contributory Objective - Vital Signs/Intake and Output Vital Signs (last 24 hours): Temp Pulse Resp BP Pulse Ox 98.1 F 92 H 18 146/75 94 L 05/08/18 06:00 05/08/18 06:00 05/08/18 06:00 05/08/18 09:04 05/08/18 06:00 Intake and Output: 05/08/18 05/08/18 06:59 18:59 Intake Total 600 Output Total 550 Balance 50 - Medications Medications: Current Medications Amlodipine Besylate (Norvasc) 10 mg PO DAILY [facility] Last Admin: 05/08/18 09:04 Dose: 10 mg Arformoterol Tartrate (Brovana) 15 mcg IH [id number] [facility] Last Admin: 05/08/18 08:17 Dose: 15 mcg Atorvastatin Calcium (Lipitor) 10 mg PO DIN [facility] Last Admin: 05/07/18 17:06 Dose: 10 mg Budesonide (Pulmicort Respules) 0.25 mg IH [id number] [facility] Last Admin: 05/08/18 08:18 Dose: 0.25 mg Calcium Acetate (Phoslo) 667 mg PO WM [facility] Last Admin: 05/08/18 09:05 Dose: 667 mg Darbepoetin José Miguel (Aranesp) 60 mcg SC QWK [facility] Ferrous Gluconate (Fergon) 324 mg PO TID [facility] Last Admin: 05/08/18 09:03 Dose: 324 mg Furosemide (Lasix) 40 mg PO DAILY [facility] Last Admin: 05/08/18 09:04 Dose: 40 mg Pantoprazole Sodium (Protonix Ec Tab) 40 mg PO 0600 [facility] Last Admin: 05/08/18 05:59 Dose: 40 mg Sodium Bicarbonate (Sodium Bicarbonate Tab) 1,300 mg PO BID [facility] Last Admin: 05/08/18 09:05 Dose: 1,300 mg Tamsulosin HCl (Flomax) 0.4 mg PO DAILY [facility] Last Admin: 05/08/18 09:04 Dose: 0.4 mg Thiamine HCl (Vitamin B1 Tab) 100 mg PO DAILY [facility] Last Admin: 05/08/18 09:06 Dose: 100 mg Tramadol HCl (Ultram) 50 mg PO TID PRN PRN Reason: Pain, moderate (4-7) Last Admin: 05/01/18 11:51 Dose: 50 mg Vitamin B Complex/Vit C/Folic Acid (Nephro-Rober) 1 tab PO 0800 [facility] Last Admin: 05/08/18 09:04 Dose: 1 tab Warfarin Sodium (Coumadin) 6 mg PO 1800 [facility]; Protocol Last Admin: 05/07/18 17:05 Dose: 6 mg - Labs Labs: 05/07/18 06:00 05/08/18 08:01 PT 17.6 SECONDS (9.4-12.5) H 05/06/18 06:00 INR 1.52 05/06/18 06:00 APTT 30.7 Seconds (25.1-36.5) 05/06/18 06:00
--- NOTE | 2018-05-08 16:04 | CP.PCM.PN ---
Subjective - Date & Time of Evaluation Date of Evaluation: 05/08/18 Time of Evaluation: 15:00 - Subjective Subjective: Infectious Disease Follow Up: May 08, 2018 82 yo male seen in my office about 2 weeks ago. The patient with wound cultures that grew Serratia, Proteus, and MRSA from the past two months. Treatment with Home IV of Ceftriaxone and Vancomycin IV. Initial home chemistries showed a Creatinine of 1.7 (2 days into medication administration start). Labs repeats 5 days later showed a Vancomycin through of 79 and Creatinine of 2.9. Antibiotics were stopped and 1L of 1/s NS administered a day. Labs repeated 3 days later showed Creatinine of 4.0 and Vancomycin trough of 60. Informed the patient to come to [facility] for further evaluation and monitoring. The patient denies any problems or complaints but does admit now that his urinary frequency and volume had decreased. Still with no complaints. States that he is comfortable. Random Vancomycin level down to 35.4 on last check. Creatinine at 5.8 today and has still been rising. He is concerned more with his leg wounds and walking. He is blissfully unaware of how serious his kidney condition is despite multiple doctors explaining that to him. Patient refusing kidney biopsy at this time. Wants to go home. He still doesn't understand the significance of his kidney injury. Objective - Vital Signs/Intake and Output Vital Signs (last 24 hours): Temp Pulse Resp BP Pulse Ox 98.1 F 92 H 18 146/75 94 L 05/08/18 06:00 05/08/18 06:00 05/08/18 06:00 05/08/18 09:04 05/08/18 06:00 Intake and Output: 05/08/18 05/08/18 06:59 18:59 Intake Total 600 Output Total 550 Balance 50 - Medications Medications: Current Medications Amlodipine Besylate (Norvasc) 10 mg PO DAILY [facility] Last Admin: 05/08/18 09:04 Dose: 10 mg Arformoterol Tartrate (Brovana) 15 mcg IH [id number] [facility] Last Admin: 05/08/18 08:17 Dose: 15 mcg Atorvastatin Calcium (Lipitor) 10 mg PO DIN [facility] Last Admin: 05/07/18 17:06 Dose: 10 mg Budesonide (Pulmicort Respules) 0.25 mg IH [id number] [facility] Last Admin: 05/08/18 08:18 Dose: 0.25 mg Calcium Acetate (Phoslo) 667 mg PO WM [facility] Last Admin: 05/08/18 14:05 Dose: 667 mg Darbepoetin José Miguel (Aranesp) 60 mcg SC QWK [facility] Ferrous Gluconate (Fergon) 324 mg PO TID [facility] Last Admin: 05/08/18 14:05 Dose: 324 mg Furosemide (Lasix) 40 mg PO DAILY [facility] Last Admin: 05/08/18 09:04 Dose: 40 mg Pantoprazole Sodium (Protonix Ec Tab) 40 mg PO 0600 [facility] Last Admin: 05/08/18 05:59 Dose: 40 mg Sodium Bicarbonate (Sodium Bicarbonate Tab) 1,300 mg PO BID [facility] Last Admin: 05/08/18 09:05 Dose: 1,300 mg Tamsulosin HCl (Flomax) 0.4 mg PO DAILY [facility] Last Admin: 05/08/18 09:04 Dose: 0.4 mg Thiamine HCl (Vitamin B1 Tab) 100 mg PO DAILY [facility] Last Admin: 05/08/18 09:06 Dose: 100 mg Tramadol HCl (Ultram) 50 mg PO TID PRN PRN Reason: Pain, moderate (4-7) Last Admin: 05/01/18 11:51 Dose: 50 mg Vitamin B Complex/Vit C/Folic Acid (Nephro-Rober) 1 tab PO 0800 [facility] Last Admin: 05/08/18 09:04 Dose: 1 tab Warfarin Sodium (Coumadin) 6 mg PO 1800 [facility]; Protocol Last Admin: 05/07/18 17:05 Dose: 6 mg - Labs Labs: 05/07/18 06:00 05/08/18 08:01 PT 17.6 SECONDS (9.4-12.5) H 05/06/18 06:00 INR 1.52 05/06/18 06:00 APTT 30.7 Seconds (25.1-36.5) 05/06/18 06:00 - Constitutional Appears: Non-toxic, No Acute Distress, Chronically Ill - Head Exam Head Exam: ATRAUMATIC, NORMOCEPHALIC - Eye Exam Eye Exam: EOMI, PERRL Pupil Exam: NORMAL ACCOMODATION, PERRL - ENT Exam ENT Exam: Mucous Membranes Moist, Normal External Ear Exam, TM's Normal Bilater ally - Neck Exam Neck Exam: Full ROM, Normal Inspection - Respiratory Exam Respiratory Exam: Clear to Ausculation Bilateral, NORMAL BREATHING PATTERN. absent: Rales, Rhonchi, Wheezes - Cardiovascular Exam Cardiovascular Exam: REGULAR RHYTHM, RRR, +S1, +S2 - GI/Abdominal Exam GI & Abdominal Exam: Soft, Normal Bowel Sounds. absent: Distended, Tenderness - Extremities Exam Extremities Exam: Full ROM, Normal Inspection Additional comments: Vasc: DP/PT 2/4. Skin temperature warm to warm from proximal to distal WNL. Cap refill < 3 seconds to all digits. No edema noted to right leg at this time Neuro: Epicritic and protective sensation grossly intact b/l Derm: An open wound at the surgical site of debridement and graft measure about 20cm X 4 cm X 0.3 cm. No pus, no purulent discharge or drainage, no clinical signs of infection. minimal periwound erythema. MSK: Minimal POP at the periwound site. ROM WNL at all major joints. Muscle power intact 5/5 in all major muscle groups. No other gross deformities noted Wound site is improved compared to two weeks ago. Patient had at least plus swelling at home of bilateral lower extremities that started 4 days prior to admission. - Neurological Exam Neurological Exam: Alert, Awake, CN II-XII Intact, Oriented x3 - Psychiatric Exam Psychiatric exam: Normal Affect, Normal Mood - Skin Additional comments: As per leg exam. Assessment and Plan - Assessment and Plan (Free Text) Assessment: 82 yo male with infected right leg with Serratia, Proteus, and MRSA in the past two months. The patient was given IV home infusion with IV Vancomycin and Rocephin. Unfortunately, the patient's renal function worsened over the course of a week to a creatinine of 4.0 and patient was told to come to the hospital for further evaluation. For now no further Vancomycin dosing. Recheck Vancomycin levels (random) periodically. Monitor Renal function. Strict output monitoring. Standard level Rocephin dosing. Wound care as per Dr. Pham. Case discussed with Dr. Pham prior to admission to [facility]. Evaluated by Renal Dr. Spears. Patient with minimal complaints. Unfortunately, the creatinine has increased to 5.8. Vancomycin level has decreased to 32.1. Stoooed all antibiotics at this time. Urine output remains extremely limited with a total of 550 ml for half of the day. Rechecking Vancomycin level. Check I&O especially urinary output for this patient... noted that the patient has not been compliant with using the urinal. Continue off of all antibiotics. Thank you for allowing me to participate in the care of this patient, we will follow with you.
--- NOTE | 2018-05-08 17:35 | CP.PCM.PN ---
Subjective - Date & Time of Evaluation Date of Evaluation: 05/08/18 Time of Evaluation: 23:00 Objective - Vital Signs/Intake and Output Vital Signs (last 24 hours): Temp Pulse Resp BP Pulse Ox 98.1 F 92 H 18 146/75 94 L 05/08/18 06:00 05/08/18 06:00 05/08/18 06:00 05/08/18 09:04 05/08/18 06:00 Intake and Output: 05/08/18 05/08/18 06:59 18:59 Intake Total 600 Output Total 550 Balance 50 - Medications Medications: Current Medications Amlodipine Besylate (Norvasc) 10 mg PO DAILY [facility] Last Admin: 05/08/18 09:04 Dose: 10 mg Arformoterol Tartrate (Brovana) 15 mcg IH [id number] [facility] Last Admin: 05/08/18 08:17 Dose: 15 mcg Atorvastatin Calcium (Lipitor) 10 mg PO DIN [facility] Last Admin: 05/08/18 17:07 Dose: 10 mg Budesonide (Pulmicort Respules) 0.25 mg IH [id number] [facility] Last Admin: 05/08/18 08:18 Dose: 0.25 mg Calcium Acetate (Phoslo) 667 mg PO WM [facility] Last Admin: 05/08/18 17:07 Dose: 667 mg Darbepoetin José Miguel (Aranesp) 60 mcg SC QWK [facility] Ferrous Gluconate (Fergon) 324 mg PO TID [facility] Last Admin: 05/08/18 17:07 Dose: 324 mg Furosemide (Lasix) 40 mg PO DAILY [facility] Last Admin: 05/08/18 09:04 Dose: 40 mg Pantoprazole Sodium (Protonix Ec Tab) 40 mg PO 0600 [facility] Last Admin: 05/08/18 05:59 Dose: 40 mg Sodium Bicarbonate (Sodium Bicarbonate Tab) 1,300 mg PO BID [facility] Last Admin: 05/08/18 17:08 Dose: 1,300 mg Tamsulosin HCl (Flomax) 0.4 mg PO DAILY [facility] Last Admin: 05/08/18 09:04 Dose: 0.4 mg Thiamine HCl (Vitamin B1 Tab) 100 mg PO DAILY [facility] Last Admin: 05/08/18 09:06 Dose: 100 mg Tramadol HCl (Ultram) 50 mg PO TID PRN PRN Reason: Pain, moderate (4-7) Last Admin: 05/01/18 11:51 Dose: 50 mg Vitamin B Complex/Vit C/Folic Acid (Nephro-Rober) 1 tab PO 0800 [facility] Last Admin: 05/08/18 09:04 Dose: 1 tab Warfarin Sodium (Coumadin) 6 mg PO 1800 [facility]; Protocol Last Admin: 05/08/18 17:06 Dose: 6 mg - Labs Labs: 05/07/18 06:00 05/08/18 08:01 PT 17.6 SECONDS (9.4-12.5) H 05/06/18 06:00 INR 1.52 05/06/18 06:00 APTT 30.7 Seconds (25.1-36.5) 05/06/18 06:00 - Constitutional Appears: Non-toxic - Head Exam Head Exam: NORMAL INSPECTION - Eye Exam Eye Exam: Normal appearance - ENT Exam ENT Exam: Mucous Membranes Moist - Neck Exam Neck Exam: Normal Inspection - Respiratory Exam Respiratory Exam: NORMAL BREATHING PATTERN - Cardiovascular Exam Cardiovascular Exam: REGULAR RHYTHM - GI/Abdominal Exam GI & Abdominal Exam: Soft, Normal Bowel Sounds - Neurological Exam Neurological Exam: Alert, Altered, Oriented x3 - Psychiatric Exam Psychiatric exam: Normal Affect - Skin Skin Exam: Abrasion, Cyanosis, Diaphoretic, Dry, Erythema, Intact, Mottled, Normal Color, Pallor, Pallor, Petechiae, Rash, Urticaria, Vesicles, Warm Additional comments: RT [employer] Assessment and Plan (1) Anemia Status: Acute (2) Renal failure Status: Acute (3) Cellulitis Status: Acute (4) DVT (deep venous thrombosis) Status: Acute - Assessment and Plan (Free Text) Plan: WILL MONITOR KIDNEY FUNCTION OVER THE WEAKEND IF IMPROVED MIGHT NOT NEED HD
[2018-05-09] MEDS: Pantoprazole 40 mg EC Tab PO SCH (06:23)
[2018-05-09 07:48] LABS: BASO # 0.03 K/mm3 (0.0-2.0); BASO % 0.3 % (0.0-3.0); EOS # 0.7 (0.0-0.7); EOS % 8.5 % (1.5-5.0); GRAN # 5.38 (1.4-6.5); GRAN % 62.4 % (50.0-68.0); HEMOGLOBIN 8.4 g/dL (14.0-18.0); LYMPH # 1.6 (1.2-3.4); LYMPH % 18.4 % (22.0-35.0); MEAN CELL VOLUME 90.2 fl (80.0-105.0); MEAN CORPUSCULAR HEMOGLOBIN 29.5 pg (25.0-35.0); MEAN CORPUSCULAR HGB CONC 32.7 g/dl (31.0-37.0); MEAN PLATELET VOLUME 9.3 fl (7.0-11.0); MONO # 0.9 (0.1-0.6); MONO % 10.4 % (1.0-6.0); RBC 2.85 10^6/uL (3.5-6.1); RED CELL DISTRIBUTION WIDTH 14.5 % (11.5-14.5); WHITE BLOOD COUNT 8.6 10^3/uL (4.5-11.0)
[2018-05-09 07:58] LABS: INR 2.05; PROTHROMBIN TIME 23.9 SECONDS (9.4-12.5)
[2018-05-09] MEDS: Arformoterol 15 mcg/2 ml Inh Sol IH SCH ×2 (08:20→22:00)
[2018-05-09] MEDS: Budesonide 0.25 mg/2 ml Inhal Susp UD IH SCH ×2 (08:20→22:00)
[2018-05-09 08:42] LABS: ALB/GLOB RATIO 0.8 (1.1-1.8); ALBUMIN 2.8 g/dL (3.0-4.8); CALCIUM 8.2 mg/dL (8.4-10.5)
[2018-05-09] MEDS: Multivitamin Vitamin B Complex (Nephro-Vite) Tab PO SCH (09:56)
--- NOTE | 2018-05-09 10:42 | CP.PCM.PN ---
<Devi Lackey - Last Filed: 05/09/18 10:40> Subjective - Date & Time of Evaluation Date of Evaluation: 05/09/18 Time of Evaluation: 10:40 - Subjective Subjective: Podiatry progress note for Dr. Pham 82 y/o M patient seen at bedside for right lower leg surgically debrided and grafted wound. Resting comfortably in bed. AAOX3 and NAD. Reports that he didn't have any pain to the right lower extremity overnight. Denies any acute events overnight. Denies N/V/F/C/SOB/CP and has no other pedal complaints. Objective - Vital Signs/Intake and Output Vital Signs (last 24 hours): Temp Pulse Resp BP Pulse Ox 99.2 F 95 H 18 138/70 96 05/09/18 06:00 05/09/18 06:00 05/09/18 06:00 05/09/18 09:57 05/09/18 06:00 Intake and Output: 05/09/18 05/09/18 06:59 18:59 Intake Total 120 Balance 120 - Medications Medications: Current Medications Amlodipine Besylate (Norvasc) 10 mg PO DAILY [facility] Last Admin: 05/09/18 09:56 Dose: 10 mg Arformoterol Tartrate (Brovana) 15 mcg IH [id number] [facility] Last Admin: 05/09/18 08:20 Dose: 15 mcg Atorvastatin Calcium (Lipitor) 10 mg PO DIN [facility] Last Admin: 05/08/18 17:07 Dose: 10 mg Budesonide (Pulmicort Respules) 0.25 mg IH [id number] [facility] Last Admin: 05/09/18 08:20 Dose: 0.25 mg Calcium Acetate (Phoslo) 667 mg PO WM [facility] Last Admin: 05/09/18 09:56 Dose: 667 mg Darbepoetin José Miguel (Aranesp) 60 mcg SC QWK [facility] Ferrous Gluconate (Fergon) 324 mg PO TID [facility] Last Admin: 05/09/18 09:56 Dose: 324 mg Furosemide (Lasix) 40 mg PO DAILY [facility] Last Admin: 05/09/18 09:57 Dose: 40 mg Pantoprazole Sodium (Protonix Ec Tab) 40 mg PO 0600 [facility] Last Admin: 05/09/18 06:23 Dose: 40 mg Sodium Bicarbonate (Sodium Bicarbonate Tab) 1,300 mg PO BID [facility] Last Admin: 05/09/18 09:56 Dose: 1,300 mg Tamsulosin HCl (Flomax) 0.4 mg PO DAILY [facility] Last Admin: 05/09/18 09:56 Dose: 0.4 mg Thiamine HCl (Vitamin B1 Tab) 100 mg PO DAILY [facility] Last Admin: 05/09/18 09:56 Dose: 100 mg Tramadol HCl (Ultram) 50 mg PO TID PRN PRN Reason: Pain, moderate (4-7) Last Admin: 05/01/18 11:51 Dose: 50 mg Vitamin B Complex/Vit C/Folic Acid (Nephro-Rober) 1 tab PO 0800 [facility] Last Admin: 05/09/18 09:56 Dose: 1 tab Warfarin Sodium (Coumadin) 6 mg PO 1800 [facility]; Protocol Last Admin: 05/08/18 17:06 Dose: 6 mg - Labs Labs: 05/09/18 07:42 05/09/18 07:42 PT 23.9 SECONDS (9.4-12.5) H 05/09/18 07:42 INR 2.05 05/09/18 07:42 APTT 30.7 Seconds (25.1-36.5) 05/06/18 06:00 - Constitutional Appears: Well, Non-toxic, No Acute Distress - Extremities Exam Additional comments: RLE focused exam Vasc: DP/PT 2/4. Skin temperature warm to warm from proximal to distal WNL. Cap refill < 3 seconds to all digits. No edema noted to right leg at this time Neuro: Epicritic and protective sensation grossly intact b/l Derm: An open wound at the surgical site of debridement and graft measure about 20cm X 4 cm X 0.3 cm. No pus, no purulent dischargebut minimal serous drainage present, no clinical signs of infection. minimal periwound erythema. MSK: Mild Pain on palpation at the periwound site. ROM WNL at all major joints. Muscle power intact 5/5 in all major muscle groups. No other gross deformities noted - Neurological Exam Neurological Exam: Alert, Awake, Oriented x3 - Psychiatric Exam Psychiatric exam: Normal Affect, Normal Mood Assessment and Plan - Assessment and Plan (Free Text) Assessment: 82 y/o M patient seen at bedside for right lower leg surgically debrided and grafted wound. Plan: Patient seen and evaluated at the bedside. Discussed in plan detail with Dr. Pham Charts, labs and vitals reviewed; Afebrile, absent leukocytosis Dressing taken down, wound cleansed sterile saline, dressed with maxorb, ABD and DSD Wound Cx; Serratia Marcescens Right Leg MRI; No evidence of OM. B/L POLLO/PVR; Improved arterial waveform compared to the preinterventional study, Left SFA and tibial disease. Continue management as per primary team ID on board; recommendations appreciated As per ID due to deterioration of kidney functions; Vancomycin stopped Podiatry will continue to follow up the patient while in house <Van Pham - Last Filed: 05/10/18 10:20> Objective - Vital Signs/Intake and Output Vital Signs (last 24 hours): Temp Pulse Resp BP Pulse Ox 98.6 F 87 20 117/63 98 05/10/18 08:05 05/10/18 08:05 05/10/18 08:05 05/10/18 09:55 05/10/18 08:05 Intake and Output: 05/10/18 05/10/18 06:59 18:59 Intake Total 680 450 Output Total 200 200 Balance 480 250 - Medications Medications: Current Medications Amlodipine Besylate (Norvasc) 10 mg PO DAILY [facility] Last Admin: 05/10/18 09:54 Dose: Not Given Arformoterol Tartrate (Brovana) 15 mcg IH [id number] [facility] Last Admin: 05/10/18 08:26 Dose: 15 mcg Atorvastatin Calcium (Lipitor) 10 mg PO DIN [facility] Last Admin: 05/09/18 18:06 Dose: 10 mg Budesonide (Pulmicort Respules) 0.25 mg IH [id number] [facility] Last Admin: 05/10/18 08:26 Dose: 0.25 mg Calcium Acetate (Phoslo) 667 mg PO WM [facility] Last Admin: 05/10/18 09:55 Dose: 667 mg Darbepoetin José Miguel (Aranesp) 60 mcg SC QWK [facility] Ferrous Gluconate (Fergon) 324 mg PO TID [facility] Last Admin: 05/10/18 09:52 Dose: 324 mg Furosemide (Lasix) 40 mg PO DAILY [facility] Last Admin: 05/10/18 09:55 Dose: Not Given Pantoprazole Sodium (Protonix Ec Tab) 40 mg PO 0600 [facility] Last Admin: 12/10/18 05:26 Dose: 40 mg Sodium Bicarbonate (Sodium Bicarbonate Tab) 1,300 mg PO BID [facility] Last Admin: 05/10/18 09:52 Dose: 1,300 mg Tamsulosin HCl (Flomax) 0.4 mg PO DAILY [facility] Last Admin: 05/10/18 09:55 Dose: 0.4 mg Thiamine HCl (Vitamin B1 Tab) 100 mg PO DAILY [facility] Last Admin: 05/10/18 09:55 Dose: 100 mg Tramadol HCl (Ultram) 50 mg PO TID PRN PRN Reason: Pain, moderate (4-7) Last Admin: 05/10/18 09:54 Dose: 50 mg Vitamin B Complex/Vit C/Folic Acid (Nephro-Rober) 1 tab PO 0800 [facility] Last Admin: 05/10/18 09:53 Dose: 1 tab Warfarin Sodium (Coumadin) 6 mg PO 1800 [facility]; Protocol Last Admin: 05/09/18 18:06 Dose: 6 mg - Labs Labs: 05/09/18 07:42 05/09/18 07:42 PT 23.9 SECONDS (9.4-12.5) H 05/09/18 07:42 INR 2.05 05/09/18 07:42 APTT 30.7 Seconds (25.1-36.5) 05/06/18 06:00 Attending/Attestation - Attestation I have personally seen and examined this patient.: Yes I have fully participated in the care of the patient.: Yes I have reviewed all pertinent clinical information, including history, physical exam and plan: Yes
--- NOTE | 2018-05-09 11:48 | PN ---
DATE: 05/09/2018 SUBJECTIVE: He is comfortable in bed, in no acute distress. He has acute on chronic renal insufficiency. He is being evaluated for dialysis. Hemoglobin is low at 8 g/dL. History of DVT in the past. Currently, on anticoagulation with Coumadin. PHYSICAL EXAMINATION GENERAL: Comfortable in bed, in no acute distress. VITAL SIGNS: Temperature 98.7, heart rate 80 per minute, respiratory rate 18 per minute, blood pressure 130/70. HEENT: Pallor positive. NECK: No lymphadenopathy. CHEST: Air entry present and equal bilaterally. No added sound. CARDIOVASCULAR: S1, S2 normal. No murmur. No gallop. ABDOMEN: Soft, nontender. No hepatosplenomegaly. EXTREMITIES: In dressing. LABORATORY DATA: White count 9.3, hemoglobin 8.4, hematocrit 27, platelets 198. INR 2.5. Sodium 138, potassium 4.3, creatinine 6.1. MEDICATIONS: Reviewed. ASSESSMENT: Acute on chronic renal failure, right terrazas cellulitis, right deep vein thrombosis, status post angioplasty, history of smoking, history of chronic obstructive pulmonary disease, history of heavy alcohol abuse. PLAN: He is being evaluated for dialysis. Creatinine increased to 6.1. We will continue current dose of Coumadin. INR therapeutic. Lasix 40 mg daily. He is on Aranesp 60 mcg subcutaneously daily, continue that. Maria Esther Art MD
--- NOTE | 2018-05-09 14:07 | CP.PCM.PN ---
Subjective - Date & Time of Evaluation Date of Evaluation: 05/09/18 Time of Evaluation: 13:00 - Subjective Subjective: Infectious Disease Follow Up: May 09, 2018 82 yo male seen in my office about 2 weeks ago. The patient with wound cultures that grew Serratia, Proteus, and MRSA from the past two months. Treatment with Home IV of Ceftriaxone and Vancomycin IV. Initial home chemistries showed a Creatinine of 1.7 (2 days into medication administration start). Labs repeats 5 days later showed a Vancomycin through of 79 and Creatinine of 2.9. Antibiotics were stopped and 1L of 1/s NS administered a day. Labs repeated 3 days later showed Creatinine of 4.0 and Vancomycin trough of 60. Informed the patient to come [place] [facility] [place] and [place]. The patient denies any problems or complaints but does admit now that his urinary frequency and volume had decreased. Still with no complaints. States that he is comfortable. Random Vancomycin level down to 35.4 on last check. Creatinine at 5.8 today and has still been rising. He is concerned more with his leg wounds and walking. He is blissfully unaware of how serious his kidney condition is despite multiple doctors explaining that to him. Patient refusing kidney biopsy at this time. Wants to go home. He still doesn't understand the significance of his kidney injury. Creatinine of 6.1 today. 12 hour urine output of 400 ml. Objective - Vital Signs/Intake and Output Vital Signs (last 24 hours): Temp Pulse Resp BP Pulse Ox 99.2 F 95 H 18 138/70 96 05/09/18 06:00 05/09/18 06:00 05/09/18 06:00 05/09/18 09:57 05/09/18 06:00 Intake and Output: 05/09/18 05/09/18 06:59 18:59 Intake Total 120 Balance 120 - Medications Medications: Current Medications Amlodipine Besylate (Norvasc) 10 mg PO DAILY [facility] Last Admin: 05/09/18 09:56 Dose: 10 mg Arformoterol Tartrate (Brovana) 15 mcg IH [id number] [facility] Last Admin: 05/09/18 08:20 Dose: 15 mcg Atorvastatin Calcium (Lipitor) 10 mg PO DIN [facility] Last Admin: 05/08/18 17:07 Dose: 10 mg Budesonide (Pulmicort Respules) 0.25 mg IH [id number] [facility] Last Admin: 05/09/18 08:20 Dose: 0.25 mg Calcium Acetate (Phoslo) 667 mg PO WM [facility] Last Admin: 05/09/18 12:41 Dose: 667 mg Darbepoetin José Miguel (Aranesp) 60 mcg SC QWK [facility] Ferrous Gluconate (Fergon) 324 mg PO TID [facility] Last Admin: 05/09/18 13:33 Dose: 324 mg Furosemide (Lasix) 40 mg PO DAILY [facility] Last Admin: 05/09/18 09:57 Dose: 40 mg Pantoprazole Sodium (Protonix Ec Tab) 40 mg PO 0600 [facility] Last Admin: 05/09/18 06:23 Dose: 40 mg Sodium Bicarbonate (Sodium Bicarbonate Tab) 1,300 mg PO BID [facility] Last Admin: 05/09/18 09:56 Dose: 1,300 mg Tamsulosin HCl (Flomax) 0.4 mg PO DAILY [facility] Last Admin: 05/09/18 09:56 Dose: 0.4 mg Thiamine HCl (Vitamin B1 Tab) 100 mg PO DAILY [facility] Last Admin: 05/09/18 09:56 Dose: 100 mg Tramadol HCl (Ultram) 50 mg PO TID PRN PRN Reason: Pain, moderate (4-7) Last Admin: 05/01/18 11:51 Dose: 50 mg Vitamin B Complex/Vit C/Folic Acid (Nephro-Rober) 1 tab PO 0800 [facility] Last Admin: 05/09/18 09:56 Dose: 1 tab Warfarin Sodium (Coumadin) 6 mg PO 1800 [facility]; Protocol Last Admin: 05/08/18 17:06 Dose: 6 mg - Labs Labs: 05/09/18 07:42 05/09/18 07:42 PT 23.9 SECONDS (9.4-12.5) H 05/09/18 07:42 INR 2.05 05/09/18 07:42 APTT 30.7 Seconds (25.1-36.5) 05/06/18 06:00 - Constitutional Appears: Non-toxic, No Acute Distress, Chronically Ill - Head Exam Head Exam: ATRAUMATIC, NORMOCEPHALIC - Eye Exam Eye Exam: EOMI, PERRL Pupil Exam: NORMAL ACCOMODATION, PERRL - ENT Exam ENT Exam: Mucous Membranes Moist, Normal External Ear Exam, TM's Normal Bilaterally - Neck Exam Neck Exam: Full ROM, Normal Inspection - Respiratory Exam Respiratory Exam: Clear to Ausculation Bilateral, NORMAL BREATHING PATTERN. absent: Rales, Rhonchi, Wheezes - Cardiovascular Exam Cardiovascular Exam: REGULAR RHYTHM, RRR, +S1, +S2 - GI/Abdominal Exam GI & Abdominal Exam: Soft, Normal Bowel Sounds. absent: Distended, Tenderness - Extremities Exam Extremities Exam: Full ROM Additional comments: Vasc: DP/PT 2/4. Skin temperature warm to warm from proximal to distal WNL. Cap refill < 3 seconds to all digits. No edema noted to right leg at this time Neuro: Epicritic and protective sensation grossly intact b/l Derm: An open wound at the surgical site of debridement and graft measure about 20cm X 4 cm X 0.3 cm. No pus, no purulent discharge or drainage, no clinical signs of infection. minimal periwound erythema. MSK: Minimal POP at the periwound site. ROM WNL at all major joints. Muscle power intact 5/5 in all major muscle groups. No other gross deformities noted Wound site is improved compared to two weeks ago. Patient had at least plus swelling at home of bilateral lower extremities that started 4 days prior to admission. - Neurological Exam Neurological Exam: Alert, Awake, CN II-XII Intact, Oriented x3 - Psychiatric Exam Psychiatric exam: Normal Affect, Normal Mood - Skin Additional comments: As per leg exam Assessment and Plan - Assessment and Plan (Free Text) Assessment: 82 yo male with infected right leg with Serratia, Proteus, and MRSA in the past two months. The patient was given IV home infusion with IV Vancomycin and Rocephin. Unfortunately, the patient's renal function worsened over the course of a week to a creatinine of 4.0 and patient was told to come to the hospital for further evaluation. For now no further Vancomycin dosing. Recheck Vancomycin levels (random) periodically. Monitor Renal function. Strict output monitoring. Standard level Rocephin dosing. Wound care as per Dr. Pham. Case discussed with Dr. Pham prior to [place] [facility]uated by Renal Dr. Spears. Patient with minimal complaints. Unfortunately, the creatinine has increased to 5.8. Vancomycin level has decreased to 32.1. Stoooed all antibiotics at this time. Urine output remains extremely limited with a total of 400 ml for half of the day. Rechecking Vancomycin level. Creatinine of 6.1. Check I&O especially urinary output for this patient... noted that the patient has not been compliant with using the urinal. Continue off of all antibiotics. Worried about the ESR during this hospitalization being 105. The Vancomycin level remains at 32.1 which remains a poor sign for the renal function and the patient's kidney recovery. High probability for requiring dialysis. Vancomycin level for 05/09/2018 is still pending. Thank you for allowing me to participate in the care of this patient, we will follow with you.
[2018-05-10] MEDS: Pantoprazole 40 mg EC Tab PO SCH (05:26)
[2018-05-10] MEDS: Budesonide 0.25 mg/2 ml Inhal Susp UD IH SCH (08:26)
[2018-05-10] MEDS: Arformoterol 15 mcg/2 ml Inh Sol IH SCH (08:26)
--- NOTE | 2018-05-10 09:30 | CP.PCM.PN ---
Subjective - Date & Time of Evaluation Date of Evaluation: 05/10/18 Time of Evaluation: 09:29 - Subjective Subjective: Podiatry progress note for Dr. Leach 82 y/o M patient seen at bedside for right lower leg surgically debrided and grafted wound. Resting comfortably in bed. Patient is AAOX3 and NAD. Patient reports that he didn't have any pain to the right lower extremity overnight. Denies any acute events overnight. Denies N/V/F/C/SOB/CP but he states that he has some productive cough since yesterday. Patient states that he has no other pedal complaints. Objective - Vital Signs/Intake and Output Vital Signs (last 24 hours): Temp Pulse Resp BP Pulse Ox 98.6 F 87 20 117/63 98 05/10/18 08:05 05/10/18 08:05 05/10/18 08:05 05/10/18 08:05 05/10/18 08:05 Intake and Output: 05/10/18 05/10/18 06:59 18:59 Intake Total 680 Output Total 200 Balance 480 - Medications Medications: Current Medications Amlodipine Besylate (Norvasc) 10 mg PO DAILY [facility] Last Admin: 05/09/18 09:56 Dose: 10 mg Arformoterol Tartrate (Brovana) 15 mcg IH [id number] [facility] Last Admin: 05/10/18 08:26 Dose: 15 mcg Atorvastatin Calcium (Lipitor) 10 mg PO DIN [facility] Last Admin: 05/09/18 18:06 Dose: 10 mg Budesonide (Pulmicort Respules) 0.25 mg IH [id number] [facility] Last Admin: 05/10/18 08:26 Dose: 0.25 mg Calcium Acetate (Phoslo) 667 mg PO WM [facility] Last Admin: 05/09/18 18:06 Dose: 667 mg Darbepoetin José Miguel (Aranesp) 60 mcg SC QWK [facility] Ferrous Gluconate (Fergon) 324 mg PO TID [facility] Last Admin: 05/09/18 18:09 Dose: 324 mg Furosemide (Lasix) 40 mg PO DAILY [facility] Last Admin: 05/09/18 09:57 Dose: 40 mg Pantoprazole Sodium (Protonix Ec Tab) 40 mg PO 0600 [facility] Last Admin: 05/10/18 05:26 Dose: 40 mg Sodium Bicarbonate (Sodium Bicarbonate Tab) 1,300 mg PO BID [facility] Last Admin: 05/09/18 18:06 Dose: 1,300 mg Tamsulosin HCl (Flomax) 0.4 mg PO DAILY [facility] Last Admin: 05/09/18 09:56 Dose: 0.4 mg Thiamine HCl (Vitamin B1 Tab) 100 mg PO DAILY [facility] Last Admin: 05/09/18 09:56 Dose: 100 mg Tramadol HCl (Ultram) 50 mg PO TID PRN PRN Reason: Pain, moderate (4-7) Last Admin: 05/01/18 11:51 Dose: 50 mg Vitamin B Complex/Vit C/Folic Acid (Nephro-Rober) 1 tab PO 0800 [facility] Last Admin: 05/09/18 09:56 Dose: 1 tab Warfarin Sodium (Coumadin) 6 mg PO 1800 [facility]; Protocol Last Admin: 05/09/18 18:06 Dose: 6 mg - Labs Labs: 05/09/18 07:42 05/09/18 07:42 PT 23.9 SECONDS (9.4-12.5) H 05/09/18 07:42 INR 2.05 05/09/18 07:42 APTT 30.7 Seconds (25.1-36.5) 05/06/18 06:00 - Constitutional Appears: Well, No Acute Distress - Head Exam Head Exam: ATRAUMATIC, NORMOCEPHALIC - Extremities Exam Additional comments: RLE focused exam Vasc: DP/PT 2/4. Skin temperature warm to warm from proximal to distal WNL. Cap refill < 3 seconds to all digits. No edema noted to right leg at this time Neuro: Epicritic and protective sensation grossly intact b/l Derm: An open wound at the surgical site of debridement and graft measure about 20cm X 4 cm X 0.3 cm. No pus, no purulent dischargebut minimal serous drainage present, no clinical signs of infection. minimal periwound erythema. MSK: Mild Pain on palpation at the periwound site. ROM WNL at all major joints. Muscle power intact 5/5 in all major muscle groups. No other gross deformities noted - Neurological Exam Neurological Exam: Alert, Awake, Oriented x3 - Psychiatric Exam Psychiatric exam: Normal Affect, Normal Mood Assessment and Plan - Assessment and Plan (Free Text) Assessment: 82 y/o M patient seen at bedside for right lower leg surgically debrided and grafted wound. Plan: Patient seen and evaluated at the bedside. Discussed in plan detail with Dr. Leach. Charts, labs and vitals reviewed; Afebrile, absent leukocytosis Dressing taken down, wound cleansed sterile saline, dressed with maxorb, ABD and DSD Wound Cx; Serratia Marcescens Right Leg MRI; No evidence of OM. B/L POLLO/PVR; Improved arterial waveform compared to the preinterventional study, Left SFA and tibial disease. Continue management as per primary team ID on board; recommendations appreciated As per ID due to deterioration of kidney functions; Vancomycin stopped ID may consider starting IV Telfaro if the ESR remains high Podiatry will continue to follow up the patient while in house
[2018-05-10] MEDS: Multivitamin Vitamin B Complex (Nephro-Vite) Tab PO SCH (09:53)
[2018-05-10] MEDS ORDERED: Darbepoetin Alfa 60 mcg/ml Inj SC SCH (10:00)
[2018-05-10 11:04] LABS: BASO # 0.03 K/mm3 (0.0-2.0); BASO % 0.3 % (0.0-3.0); EOS # 0.6 (0.0-0.7); EOS % 6.9 % (1.5-5.0); GRAN # 5.68 (1.4-6.5); GRAN % 60.8 % (50.0-68.0); HEMOGLOBIN 8.6 g/dL (14.0-18.0); LYMPH # 1.7 (1.2-3.4); LYMPH % 17.9 % (22.0-35.0); MEAN CORPUSCULAR HEMOGLOBIN 29.7 pg (25.0-35.0); MEAN PLATELET VOLUME 9.8 fl (7.0-11.0); MONO # 1.3 (0.1-0.6); MONO % 14.1 % (1.0-6.0); RBC 2.9 10^6/uL (3.5-6.1); RED CELL DISTRIBUTION WIDTH 14.5 % (11.5-14.5); WHITE BLOOD COUNT 9.3 10^3/uL (4.5-11.0)
[2018-05-10 11:12] LABS: ALB/GLOB RATIO 0.8 (1.1-1.8); CALCIUM 8.1 mg/dL (8.4-10.5)
--- NOTE | 2018-05-10 15:40 | CP.PCM.PN ---
Subjective - Date & Time of Evaluation Date of Evaluation: 05/10/18 Time of Evaluation: 14:00 - Subjective Subjective: Infectious Disease Follow Up: May 10, 2018 82 yo male seen in my office about 2 weeks ago. The patient with wound cultures that grew Serratia, Proteus, and MRSA from the past two months. Treatment with Home IV of Ceftriaxone and Vancomycin IV. Initial home chemistries showed a Creatinine of 1.7 (2 days into medication administration start). Labs repeats 5 days later showed a Vancomycin through of 79 and Creatinine of 2.9. Antibiotics were stopped and 1L of 1/s NS administered a day. Labs repeated 3 days later showed Creatinine of 4.0 and Vancomycin trough of 60. Informed the patient to come to [facility] for further evaluation and monitoring. The patient denies any problems or complaints but does admit now that his urinary frequency and volume had decreased. Still with no complaints. States that he is comfortable. Random Vancomycin level down to 35.4 on last check. Creatinine at 5.8 today and has still been rising. He is concerned more with his leg wounds and walking. He is blissfully unaware of how serious his kidney condition is despite multiple doctors explaining that to him. Patient refusing kidney biopsy at this time. Wants to go home. He still doesn't understand the significance of his kidney injury. Creatinine of 6.3 today which is continuing to worsen. Las 24 hour urine output of 400 ml. He remains noncompliant with showing us the amount of urine he is making as he will urinate straight into the toilet bowl instead of the urinal. He will only state that he "makes lots of urine". ESR is 117. Objective - Vital Signs/Intake and Output Vital Signs (last 24 hours): Temp Pulse Resp BP Pulse Ox 98.6 F 87 20 117/63 98 05/10/18 08:05 05/10/18 08:05 05/10/18 08:05 05/10/18 09:55 05/10/18 08:05 Intake and Output: 05/10/18 05/10/18 06:59 18:59 Intake Total 680 450 Output Total 200 200 Balance 480 250 - Medications Medications: Current Medications Amlodipine Besylate (Norvasc) 10 mg PO DAILY [facility] Last Admin: 05/10/18 09:54 Dose: Not Given Arformoterol Tartrate (Brovana) 15 mcg IH [id number] [facility] Last Admin: 05/10/18 08:26 Dose: 15 mcg Atorvastatin Calcium (Lipitor) 10 mg PO DIN [facility] Last Admin: 05/09/18 18:06 Dose: 10 mg Budesonide (Pulmicort Respules) 0.25 mg IH [id number] [facility] Last Admin: 05/10/18 08:26 Dose: 0.25 mg Calcium Acetate (Phoslo) 667 mg PO WM [facility] Last Admin: 05/10/18 09:55 Dose: 667 mg Darbepoetin José Miguel (Aranesp) 60 mcg SC QWK [facility] Ferrous Gluconate (Fergon) 324 mg PO TID [facility] Last Admin: 05/10/18 09:52 Dose: 324 mg Furosemide (Lasix) 40 mg PO DAILY [facility] Last Admin: 05/10/18 09:55 Dose: Not Given Magnesium Oxide (Mag-Ox) 400 mg PO DAILY [facility] Pantoprazole Sodium (Protonix Ec Tab) 40 mg PO 0600 [facility] Last Admin: 05/10/18 05:26 Dose: 40 mg Sodium Bicarbonate (Sodium Bicarbonate Tab) 1,300 mg PO BID [facility] Last Admin: 05/10/18 09:52 Dose: 1,300 mg Tamsulosin HCl (Flomax) 0.4 mg PO DAILY [facility] Last Admin: 05/10/18 09:55 Dose: 0.4 mg Thiamine HCl (Vitamin B1 Tab) 100 mg PO DAILY [facility] Last Admin: 05/10/18 09:55 Dose: 100 mg Tramadol HCl (Ultram) 50 mg PO TID PRN PRN Reason: Pain, moderate (4-7) Last Admin: 05/10/18 09:54 Dose: 50 mg Vitamin B Complex/Vit C/Folic Acid (Nephro-Rober) 1 tab PO 0800 [facility] Last Admin: 05/10/18 09:53 Dose: 1 tab - Labs Labs: 05/10/18 10:55 05/10/18 10:55 PT 23.9 SECONDS (9.4-12.5) H 05/09/18 07:42 INR 2.05 05/09/18 07:42 APTT 30.7 Seconds (25.1-36.5) 05/06/18 06:00 - Constitutional Appears: Non-toxic, No Acute Distress, Chronically Ill - Head Exam Head Exam: ATRAUMATIC, NORMOCEPHALIC - Eye Exam Eye Exam: EOMI, PERRL Pupil Exam: NORMAL ACCOMODATION, PERRL - ENT Exam ENT Exam: Mucous Membranes Moist, Normal External Ear Exam, TM's Normal Bilaterally - Neck Exam Neck Exam: Full ROM, Normal Inspection - Respiratory Exam Respiratory Exam: Clear to Ausculation Bilateral, NORMAL BREATHING PATTERN. absent: Rales, Rhonchi, Wheezes - Cardiovascular Exam Cardiovascular Exam: REGULAR RHYTHM, RRR, +S1, +S2 - GI/Abdominal Exam GI & Abdominal Exam: Soft, Normal Bowel Sounds. absent: Distended, Tenderness - Extremities Exam Extremities Exam: Full ROM Additional comments: Vasc: DP/PT 2/4. Skin temperature warm to warm from proximal to distal WNL. Cap refill < 3 seconds to all digits. No edema noted to right leg at this time Neuro: Epicritic and protective sensation grossly intact b/l Derm: An open wound at the surgical site of debridement and graft measure about 20cm X 4 cm X 0.3 cm. No pus, no purulent discharge or drainage, no clinical signs of infection. minimal periwound erythema. MSK: Minimal POP at the periwound site. ROM WNL at all major joints. Muscle power intact 5/5 in all major muscle groups. No other gross deformities noted Wound site is improved compared to two weeks ago. Patient had at least plus swelling at home of bilateral lower extremities that started 4 days prior to admission. - Neurological Exam Neurological Exam: Alert, Awake, CN II-XII Intact, Oriented x3 - Psychiatric Exam Psychiatric exam: Normal Affect, Normal Mood - Skin Additional comments: As per leg exam Assessment and Plan - Assessment and Plan (Free Text) Assessment: 82 yo male with infected right leg with Serratia, Proteus, and MRSA in the past two months. The patient was given IV home infusion with IV Vancomycin and Rocephin. Unfortunately, the patient's renal function worsened over the course of a week to a creatinine of 4.0 and patient was told to come to the hospital for further evaluation. For now no further Vancomycin dosing. Recheck Vancomycin levels (random) periodically. Monitor Renal function. Strict output monitoring. Standard level Rocephin dosing. Wound care as per Dr. Pham. Case discussed with Dr. Pham prior to admission to [facility]. Evaluated by Renal Dr. Spears. Patient with minimal complaints. Unfortunately, the creatinine has increased to 5.8. Vancomycin level has decreased to 32.1. Stopped all antibiotics at this time. Urine output remains extremely limited with a total of 400 ml for half of the day. Rechecking Vancomycin level. Creatinine of 6.3. Check I&O especially urinary output for this patient... noted that the patient has not been compliant with using the urinal. Continue off of all antibiotics. Worried about the ESR during this hospitalization being 105. The Vancomycin level remains at 32.1 which remains a poor sign for the renal function and the patient's kidney recovery. High probability for requiring dialysis. Vancomycin level for 05/09/2018 is 29.3. ESR is up to 117. At this time will start Teflaro 300 mg IV q12hrs. Thank you for allowing me to participate in the care of this patient, we will follow with you.
[2018-05-10] MEDS: Magnesium Oxide 400 mg Tab UD PO SCH (15:45)
--- NOTE | 2018-05-10 20:50 | CP.PCM.PN ---
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 mg proteinuria (R80.9) acute on chronic anemia, FOB + with hx of gastric ulcer COPD, DVT, hx of Etoh and smoking hypoalbuminemia, metabolic acidosis hypomag, hyperphos Plan No acute need for renal replacement therapy at this time, cr slowly creeping up no signs of uremia or volume overload or electrolyte abnormalities Hypertension control with meds as ordered. Maintain hemodynamics stable. Avoid hypotension. Patient not on ACEI/ARB due to recent HARSH. Monitor Input/Output on iron and bicarb and phoslo s/p aransep 60 mcg on 05/03/18 on flomax pt not a candidate for treatment with steroids due to hx gastric ulcer, active infection, FOB + with anemia. risks outweighs less certain benefits patient has been declining renal biopsy. d/w primary team Physical Examination: General Appearance: Comfortable, in no acute respiratory distress, co-operative Vitals reviewed Head; Atraumatic, normocephalic ENT: no ulcers EYES: Eye muscles and extraocular movement intact. Sclera is anicteric. Neck; supple no thyromegaly Lungs: Normal respiratory rate/effort. Breath sounds bilateral clearer Heart: Normal rate. s1s2 normal. No rub or gallop. Extremities: no edema. Neurological: Patient is alert, awake and oriented to person, place and time. No focal deficit. Strength bilateral appropriate and equal Skin: Warm and dry Abdomen: Abdomen is soft. Bowel sounds +. There is no abdominal tenderness, no guarding/rigidity ? hepatomegaly Psych: lack insight and normal affect/mood MSK: no joint tenderness or swelling Objective - Vital Signs/Intake and Output Vital Signs (last 24 hours): Temp Pulse Resp BP Pulse Ox 97.8 F 104 H 19 146/70 95 05/10/18 16:22 05/10/18 16:22 05/10/18 16:22 05/10/18 16:22 05/10/18 16:22 Intake and Output: 12/10/18 12/11/18 18:59 06:59 Intake Total 450 Output Total 200 Balance 250 - Medications Medications: Current Medications Amlodipine Besylate (Norvasc) 10 mg PO DAILY [facility] Last Admin: 05/10/18 09:54 Dose: Not Given Arformoterol Tartrate (Brovana) 15 mcg IH [id number] [facility] Last Admin: 05/10/18 08:26 Dose: 15 mcg Atorvastatin Calcium (Lipitor) 10 mg PO DIN [facility] Last Admin: 05/10/18 18:27 Dose: 10 mg Budesonide (Pulmicort Respules) 0.25 mg IH [id number] [facility] Last Admin: 05/10/18 08:26 Dose: 0.25 mg Calcium Acetate (Phoslo) 667 mg PO WM [facility] Last Admin: 05/10/18 18:27 Dose: 667 mg Darbepoetin José Miguel (Aranesp) 60 mcg SC QWK [facility] Last Admin: 05/10/18 18:15 Dose: 60 mcg Ferrous Gluconate (Fergon) 324 mg PO TID [facility] Last Admin: 05/10/18 18:27 Dose: 324 mg Furosemide (Lasix) 40 mg PO DAILY [facility] Last Admin: 05/10/18 09:55 Dose: Not Given Ceftaroline Fosamil 200 mg/ (Sodium Chloride) 50 mls @ 50 mls/hr IVPB 0600,1800 [facility]; Protocol Magnesium Oxide (Mag-Ox) 400 mg PO DAILY [facility] Last Admin: 05/10/18 15:45 Dose: 400 mg Pantoprazole Sodium (Protonix Ec Tab) 40 mg PO 0600 [facility] Last Admin: 05/10/18 05:26 Dose: 40 mg Sodium Bicarbonate (Sodium Bicarbonate Tab) 1,300 mg PO BID [facility] Last Admin: 05/10/18 18:27 Dose: 1,300 mg Tamsulosin HCl (Flomax) 0.4 mg PO DAILY [facility] Last Admin: 05/10/18 09:55 Dose: 0.4 mg Thiamine HCl (Vitamin B1 Tab) 100 mg PO DAILY [facility] Last Admin: 05/10/18 09:55 Dose: 100 mg Tramadol HCl (Ultram) 50 mg PO TID PRN PRN Reason: Pain, moderate (4-7) Last Admin: 05/10/18 09:54 Dose: 50 mg Vitamin B Complex/Vit C/Folic Acid (Nephro-Rober) 1 tab PO 0800 [facility] Last Admin: 05/10/18 09:53 Dose: 1 tab Warfarin Sodium (Coumadin) 3 mg PO 1800 [facility]; Protocol - Labs Labs: 05/10/18 10:55 05/10/18 10:55 PT 23.9 SECONDS (9.4-12.5) H 05/09/18 07:42 INR 2.05 05/09/18 07:42 APTT 30.7 Seconds (25.1-36.5) 05/06/18 06:00
--- NOTE | 2018-05-10 21:33 | PN ---
DATE: 05/10/2018 SUBJECTIVE: The patient is an 82-year-old, seen and examined. Doing well. Wants to go home. Denies any nausea or vomiting. Eating and tolerating. Does not like food here. PHYSICAL EXAMINATION: VITAL SIGNS: He is afebrile, pulse 87, respirations 20, blood pressure 117/63. LUNGS: Bilateral fair airflow. No rhonchi or crackle. HEART: S1 and S2 audible. ABDOMEN: Soft, nontender. No rebound, no guarding. NEUROLOGICAL: The patient is awake, alert, oriented, and communicative. Able to ambulate. LABORATORY DATA: WBC is 9.3, hemoglobin 9.6, hematocrit 26.1 and platelets of 188. PT 23.9, INR 2.05. Chemistry: Sodium 136, potassium 4.3, chloride 100, CO2 of 29, BUN 54, creatinine 6.3 and blood sugar of 94. Magnesium 1.5. ASSESSMENT AND PLAN: 1. Acute on chronic renal failure. 2. Hypertension. 3. Right terrazas ulcer, improving. 4. Status post debridement and grafting of right terrazas. 5. Paraproteinemia. 6. Anemia. PLAN: I discussed with the architectural intern. They recommend kidney biopsy, but the patient does not want to have kidney biopsy done. Currently, he is on every 12 hours. I will discuss with Dr. Spears for the duration of the antibiotics and we will order for CBC and CMP in a.m. According to architectural intern, we can hold of dialysis and give the patient enough time since he is asymptomatic. There is no urgent need for dialysis that can be decided later on. I will discuss with the patient's daughter, Daisy bergeron. Aquilino Garcia MD
[2018-05-11] MEDS: Pantoprazole 40 mg EC Tab PO SCH (05:20)
[2018-05-11] MEDS: Arformoterol 15 mcg/2 ml Inh Sol IH SCH ×2 (08:25→20:15)
[2018-05-11] MEDS: Budesonide 0.25 mg/2 ml Inhal Susp UD IH SCH ×2 (08:25→20:15)
[2018-05-11] MEDS ORDERED: Darbepoetin Alfa 40 mcg/ml Inj SC ONE (09:42)
--- NOTE | 2018-05-11 10:25 | CP.PCM.PCO ---
Physician Communication Note - Physician Communication Note Physician Communication Note: patient for home Teflaro 200mg Q12 x 3wks CM for DC planning
[2018-05-11 10:46] LABS: BASO # 0.03 K/mm3 (0.0-2.0); BASO % 0.4 % (0.0-3.0); EOS # 0.7 (0.0-0.7); EOS % 8.4 % (1.5-5.0); GRAN # 5.48 (1.4-6.5); HEMOGLOBIN 8.6 g/dL (14.0-18.0); LYMPH % 12.3 % (22.0-35.0); MEAN CELL VOLUME 90.3 fl (80.0-105.0); MEAN CORPUSCULAR HEMOGLOBIN 29.7 pg (25.0-35.0); MEAN CORPUSCULAR HGB CONC 32.8 g/dl (31.0-37.0); MEAN PLATELET VOLUME 8.9 fl (7.0-11.0); MONO # 1.2 (0.1-0.6); MONO % 13.9 % (1.0-6.0); RBC 2.9 10^6/uL (3.5-6.1); RED CELL DISTRIBUTION WIDTH 14.6 % (11.5-14.5); WHITE BLOOD COUNT 8.4 10^3/uL (4.5-11.0)
[2018-05-11] MEDS: Multivitamin Vitamin B Complex (Nephro-Vite) Tab PO SCH (10:53)
[2018-05-11] MEDS: Magnesium Oxide 400 mg Tab UD PO SCH ×2 (10:54→18:57)
[2018-05-11 10:55] LABS: INR 3.22; PROTHROMBIN TIME 37.9 SECONDS (9.4-12.5)
[2018-05-11 11:08] LABS: ALB/GLOB RATIO 0.8 (1.1-1.8); ALBUMIN 3.1 g/dL (3.0-4.8); CALCIUM 8.3 mg/dL (8.4-10.5)
[2018-05-11] MEDS ORDERED: Sod Polystyrene Sulf 15 gm/60 ml Susp PO ONE (12:21)
--- NOTE | 2018-05-11 12:26 | CP.PCM.PN ---
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 also with igG Cornelius paraproteinemia Hypertensive Chronic Kidney Disease (I12.9) Chronic Kidney Disease (N18.3) Stage 3 with ? mg proteinuria (R80.9) acute on chronic anemia, FOB + with hx of gastric ulcer COPD, DVT, hx of Etoh and smoking hypoalbuminemia, metabolic acidosis hypomag, hyperphos Plan Cr still in 6 range and K rising. pt not reliable with follow ups. will advise initiation of HD and follow up outpt for renal recovery once d/c Hypertension control with meds as ordered. Maintain hemodynamics stable. Avoid hypotension. Patient not on ACEI/ARB due to recent HARSH. Monitor Input/Output, daily weights and renal function with basic metabolic panel added iron, MVI, phos binders and sodium bicarb. aransep weekly added PPI and thiamine as well added flomax as PVR 168 mL GI follow up noted pt not a candidate for treatment with steroids due to hx gastric ulcer, active infection, FOB + with anemia. risks outweighs less certain benefits. continue with lasix 40 mg orally daily. medical management of hyperkalemia as needed can consider kidney biopsy however pt refusing and doesn't understand risks/benefit. d/w daughter and she want to hold off as well. consider heme eval for anemia and paraproteinemia Dose meds/antibiotics for reduced GFR. Avoid fleets enema/magnesium based laxatives. Avoid nephrotoxins/NSAIDs/ iodinated contrast (unless needed emergently) Glycemic control Further work up/management as per primary team Thanks for allowing me to participate in care of your patient. Will follow patient with you. Please call if any Qs. had d/w team Dr Froilan Spears Office: [phone] Reason for consult: Acute Kidney Injury HPI: Pt is a 82 M with hx of HTN, COPD, DVT on coumadin, etoh/smoker (quit 6 months ago), anemia, CKD 3 with baseline cr 1.4-1.5 presented with complaints of abnormal kidney fxn and HARSH Denies OTC/herbal meds or NSAIDs No recent iodinated contrast exposure. No obvious episodes of low BP. pt was treated with abx recently as vanco and cephalosporins pt not aware about kidney disease in past. feels in usual health except rt leg swelling ROS: wants to go home Cardiovascular: No chest pain. Pulmonary: No shortness of breath now Gastrointestinal: denies abdominal pain No nausea. No vomiting. Genitourinary: No pain while urinating. Denies blood in urine. All other negative except as mentioned in HPI Physical Examination: General Appearance: Comfortable, in no acute respiratory distress, co-operative. somewhat cachexic Vitals reviewed and noted as below Head; Atraumatic, normocephalic ENT: no ulcers no thrush. Tongue is midline. Oropharynx: no rash or ulcers. EYES: Pupils are equal, round and reactive to light accommodation. Eye muscles and extraocular movement intact. Sclera is anicteric. Neck; supple no lymphadenopathy, no thyromegaly or bruit Lungs: Normal respiratory rate/effort. Breath sounds bilateral clearer Heart: Normal rate. s1s2 normal. No rub or gallop. Extremities: no edema. No varicose veins. RLE swelling, dressing + Neurological: Patient is alert, awake and oriented to person, place and time. No focal deficit. Strength bilateral appropriate and equal Skin: Warm and dry. Normal turgor. No rash. Palpitation: Normal elasticity for a ge Abdomen: Abdomen is soft. Bowel sounds +. There is no abdominal tenderness, no guarding/rigidity ? hepatomegaly Psych: lack insight and normal affect/mood MSK: no joint tenderness or swelling. Digits and nails normal, no deformity : kidney not palpable Labs/imaging reviewed. Past medical history, past surgical history, family history, social history, allergy reviewed and noted as below Family hx: no hx of CKD. Rest non-contributory Objective - Vital Signs/Intake and Output Vital Signs (last 24 hours): Temp Pulse Resp BP Pulse Ox 97.9 F 104 H 20 138/82 96 05/11/18 08:55 05/11/18 08:55 05/11/18 08:55 05/11/18 10:55 05/11/18 08:55 Intake and Output: 05/11/18 05/11/18 06:59 18:59 Intake Total 1000 Output Total 1050 Balance -50 - Medications Medications: Current Medications Amlodipine Besylate (Norvasc) 10 mg PO DAILY [facility] Last Admin: 05/11/18 10:54 Dose: 10 mg Arformoterol Tartrate (Brovana) 15 mcg IH [id number] [facility] Last Admin: 05/11/18 08:25 Dose: 15 mcg Atorvastatin Calcium (Lipitor) 10 mg PO DIN [facility] Last Admin: 05/10/18 18:27 Dose: 10 mg Budesonide (Pulmicort Respules) 0.25 mg IH [id number] [facility] Last Admin: 05/11/18 08:25 Dose: 0.25 mg Calcium Acetate (Phoslo) 667 mg PO WM [facility] Last Admin: 05/11/18 10:47 Dose: Not Given Darbepoetin José Miguel (Aranesp) 100 mcg SC QWK [facility] Ferrous Gluconate (Fergon) 324 mg PO TID [facility] Last Admin: 05/11/18 10:53 Dose: 324 mg Furosemide (Lasix) 40 mg PO DAILY [facility] Last Admin: 05/11/18 10:55 Dose: 40 mg Ceftaroline Fosamil 200 mg/ (Sodium Chloride) 50 mls @ 50 mls/hr IVPB 0600,1800 [facility]; Protocol Last Admin: 05/11/18 05:20 Dose: 50 mls/hr Magnesium Oxide (Mag-Ox) 400 mg PO DAILY [facility] Last Admin: 05/11/18 10:54 Dose: 400 mg Pantoprazole Sodium (Protonix Ec Tab) 40 mg PO 0600 [facility] Last Admin: 05/11/18 05:20 Dose: 40 mg Sodium Bicarbonate (Sodium Bicarbonate Tab) 650 mg PO BID [facility] Last Admin: 05/11/18 10:53 Dose: 650 mg Tamsulosin HCl (Flomax) 0.4 mg PO DAILY [facility] Last Admin: 05/11/18 10:54 Dose: 0.4 mg Thiamine HCl (Vitamin B1 Tab) 100 mg PO DAILY [facility] Last Admin: 05/11/18 10:54 Dose: 100 mg Tramadol HCl (Ultram) 50 mg PO TID PRN PRN Reason: Pain, moderate (4-7) Last Admin: 05/10/18 09:54 Dose: 50 mg Vitamin B Complex/Vit C/Folic Acid (Nephro-Rober) 1 tab PO 0800 [facility] Last Admin: 05/11/18 10:53 Dose: 1 tab Warfarin Sodium (Coumadin) 3 mg PO 1800 [facility]; Protocol - Labs Labs: 05/11/18 10:30 05/11/18 10:30 PT 37.9 SECONDS (9.4-12.5) H 05/11/18 10:30 INR 3.22 05/11/18 10:30 APTT 30.7 Seconds (25.1-36.5) 05/06/18 06:00
--- NOTE | 2018-05-11 14:38 | CP.PCM.PN ---
<Nikolas Duran - Last Filed: 05/11/18 14:35> Subjective - Date & Time of Evaluation Date of Evaluation: 05/11/18 Time of Evaluation: 14:35 - Subjective Subjective: Podiatry progress note for Dr. Pham; 82 y/o M patient seen at bedside for right lower leg surgically debrided and grafted wound. Resting comfortably in bed. Patient is AAOX3 and NAD. Patient reports that he didn't have any pain to the right lower extremity overnight. Denies any acute events overnight. Denies N/V/F/C/SOB/CP but he states that he has some productive cough since yesterday. Patient states that he has no other pedal complaints. Objective - Vital Signs/Intake and Output Vital Signs (last 24 hours): Temp Pulse Resp BP Pulse Ox 97.9 F 104 H 20 138/82 96 05/11/18 08:55 05/11/18 08:55 05/11/18 08:55 05/11/18 10:55 05/11/18 08:55 Intake and Output: 05/11/18 05/11/18 06:59 18:59 Intake Total 1000 Output Total 1050 Balance -50 - Medications Medications: Current Medications Amlodipine Besylate (Norvasc) 10 mg PO DAILY [facility] Last Admin: 05/11/18 10:54 Dose: 10 mg Arformoterol Tartrate (Brovana) 15 mcg IH [id number] [facility] Last Admin: 05/11/18 08:25 Dose: 15 mcg Atorvastatin Calcium (Lipitor) 10 mg PO DIN [facility] Last Admin: 05/10/18 18:27 Dose: 10 mg Budesonide (Pulmicort Respules) 0.25 mg IH [id number] [facility] Last Admin: 05/11/18 08:25 Dose: 0.25 mg Calcium Acetate (Phoslo) 667 mg PO WM [facility] Last Admin: 05/11/18 10:47 Dose: Not Given Darbepoetin José Miguel (Aranesp) 100 mcg SC QWK [facility] Ferrous Gluconate (Fergon) 324 mg PO TID [facility] Last Admin: 05/11/18 10:53 Dose: 324 mg Furosemide (Lasix) 40 mg PO DAILY [facility] Last Admin: 05/11/18 10:55 Dose: 40 mg Ceftaroline Fosamil 200 mg/ (Sodium Chloride) 50 mls @ 50 mls/hr IVPB 0600,1800 [facility]; Protocol Last Admin: 05/11/18 05:20 Dose: 50 mls/hr Magnesium Oxide (Mag-Ox) 400 mg PO BID [facility] Pantoprazole Sodium (Protonix Ec Tab) 40 mg PO 0600 [facility] Last Admin: 05/11/18 05:20 Dose: 40 mg Sodium Bicarbonate (Sodium Bicarbonate Tab) 650 mg PO BID [facility] Last Admin: 05/11/18 10:53 Dose: 650 mg Tamsulosin HCl (Flomax) 0.4 mg PO DAILY [facility] Last Admin: 05/11/18 10:54 Dose: 0.4 mg Thiamine HCl (Vitamin B1 Tab) 100 mg PO DAILY [facility] Last Admin: 05/11/18 10:54 Dose: 100 mg Tramadol HCl (Ultram) 50 mg PO TID PRN PRN Reason: Pain, moderate (4-7) Last Admin: 05/10/18 09:54 Dose: 50 mg Vitamin B Complex/Vit C/Folic Acid (Nephro-Rober) 1 tab PO 0800 [facility] Last Admin: 05/11/18 10:53 Dose: 1 tab - Labs Labs: 05/11/18 10:30 05/11/18 10:30 PT 37.9 SECONDS (9.4-12.5) H 05/11/18 10:30 INR 3.22 05/11/18 10:30 APTT 30.7 Seconds (25.1-36.5) 05/06/18 06:00 - Constitutional Appears: Well, No Acute Distress - Head Exam Head Exam: ATRAUMATIC, NORMOCEPHALIC - Extremities Exam Additional comments: RLE focused exam Vasc: DP/PT 2/4. Skin temperature warm to warm from proximal to distal WNL. Cap refill < 3 seconds to all digits. No edema noted to right leg at this time Neuro: Epicritic and protective sensation grossly intact b/l Derm: An open wound at the surgical site of debridement and graft measure about 20cm X 4 cm X 0.3 cm. No pus, no purulent dischargebut minimal serous drainage present, no clinical signs of infection. minimal periwound erythema. MSK: Mild Pain on palpation at the periwound site. ROM WNL at all major joints. Muscle power intact 5/5 in all major muscle groups. No other gross deformities noted - Neurological Exam Neurological Exam: Alert, Awake, Oriented x3 - Psychiatric Exam Psychiatric exam: Normal Affect, Normal Mood Assessment and Plan - Assessment and Plan (Free Text) Assessment: 82 y/o M patient seen at bedside for right lower leg surgically debrided and grafted wound. Plan: Patient seen and evaluated at the bedside. Discussed in plan detail with Dr. Pham. Charts, labs and vitals reviewed; Afebrile, absent leukocytosis Dressing taken down, wound cleansed sterile saline, dressed with maxorb, ABD and DSD Wound Cx; Serratia Marcescens Right Leg MRI; No evidence of OM. B/L POLLO/PVR; Improved arterial waveform compared to the preinterventional study, Left SFA and tibial disease. Continue management as per primary team ID on board; recommendations appreciated Continue IV Abx as per ID As per ID patient will be discharged home on Telfaro 500mg Q12 for 3 weeks Patient to follow up qith /Ankit at the wound care center upon discharge on weekly bases. Podiatry will continue to follow up the patient while in house <Van Pham - Last Filed: 05/12/18 16:54> Objective - Vital Signs/Intake and Output Vital Signs (last 24 hours): Temp Pulse Resp BP Pulse Ox 97.2 F L 94 H 18 120/60 96 05/12/18 16:15 05/12/18 16:15 05/12/18 16:15 05/12/18 16:15 05/12/18 16:15 Intake and Output: 05/12/18 05/12/18 06:59 18:59 Intake Total 480 Output Total 175 Balance 305 - Medications Medications: Current Medications Amlodipine Besylate (Norvasc) 10 mg PO DAILY [facility] Last Admin: 05/12/18 10:08 Dose: 10 mg Arformoterol Tartrate (Brovana) 15 mcg IH [id number] [facility] Last Admin: 05/12/18 08:26 Dose: 15 mcg Atorvastatin Calcium (Lipitor) 10 mg PO DIN [facility] Last Admin: 05/11/18 16:32 Dose: 10 mg Budesonide (Pulmicort Respules) 0.25 mg IH [id number] [facility] Last Admin: 05/12/18 08:35 Dose: 0.25 mg Calcium Acetate (Phoslo) 667 mg PO WM [facility] Last Admin: 05/12/18 13:36 Dose: 667 mg Darbepoetin José Miguel (Aranesp) 100 mcg SC QWK [facility] Ferrous Gluconate (Fergon) 324 mg PO TID [facility] Last Admin: 05/12/18 13:36 Dose: 324 mg Furosemide (Lasix) 40 mg PO DAILY [facility] Last Admin: 05/12/18 10:09 Dose: 40 mg Ceftaroline Fosamil 200 mg/ (Sodium Chloride) 50 mls @ 50 mls/hr IVPB 0600,1800 [facility]; Protocol Last Admin: 05/12/18 05:40 Dose: 50 mls/hr Magnesium Oxide (Mag-Ox) 400 mg PO BID [facility] Last Admin: 05/12/18 10:09 Dose: 400 mg Pantoprazole Sodium (Protonix Ec Tab) 40 mg PO 0600 [facility] Last Admin: 05/12/18 05:40 Dose: 40 mg Sodium Bicarbonate (Sodium Bicarbonate Tab) 650 mg PO BID [facility] Last Admin: 05/12/18 10:08 Dose: 650 mg Tamsulosin HCl (Flomax) 0.4 mg PO DAILY [facility] Last Admin: 05/12/18 10:09 Dose: 0.4 mg Thiamine HCl (Vitamin B1 Tab) 100 mg PO DAILY [facility] Last Admin: 05/12/18 10:09 Dose: 100 mg Tramadol HCl (Ultram) 50 mg PO TID PRN PRN Reason: Pain, moderate (4-7) Last Admin: 05/10/18 09:54 Dose: 50 mg Vitamin B Complex/Vit C/Folic Acid (Nephro-Rober) 1 tab PO 0800 [facility] Last Admin: 05/12/18 08:40 Dose: 1 tab - Labs Labs: 05/12/18 10:00 05/12/18 10:00 PT 33.1 SECONDS (9.4-12.5) H 05/12/18 10:00 INR 2.82 05/12/18 10:00 APTT 30.7 Seconds (25.1-36.5) 05/06/18 06:00 Attending/Attestation - Attestation I have personally seen and examined this patient.: Yes I have fully participated in the care of the patient.: Yes I have reviewed all pertinent clinical information, including history, physical exam and plan: Yes
--- NOTE | 2018-05-11 15:47 | CP.PCM.PN ---
Subjective - Date & Time of Evaluation Date of Evaluation: 05/11/18 Time of Evaluation: 14:30 - Subjective Subjective: Infectious Disease Follow Up: May 11, 2018 82 yo male seen in my office about 2 weeks ago. The patient with wound cultures that grew Serratia, Proteus, and MRSA from the past two months. Treatment with Home IV of Ceftriaxone and Vancomycin IV. Initial home chemistries showed a Creatinine of 1.7 (2 days into medication administration start). Labs repeats 5 days later showed a Vancomycin through of 79 and Creatinine of 2.9. Antibiotics were stopped and 1L of 1/s NS administered a day. Labs repeated 3 days later showed Creatinine of 4.0 and Vancomycin trough of 60. Informed the patient to come [place] [facility] [place] evaluation and monitoring. The patient denies any problems or complaints but does admit now that his urinary frequency and volume had decreased. Still with no complaints. States that he is comfortable. Random Vancomycin level down to 35.4 on last check. Creatinine at 5.8 today and has still been rising. He is concerned more with his leg wounds and walking. He is blissfully unaware of how serious his kidney condition is despite multiple doctors explaining that to him. Patient refusing kidney biopsy at this time. Wants to go home. He still doesn't understand the significance of his kidney injury. Creatinine of 6.4 today which is continuing to worsen. Last 24 hour urine output of 400 ml. He remains noncompliant with showing us the amount of urine he is making as he will urinate straight into the toilet bowl instead of the urinal. He will only state that he "makes lots of urine". ESR is 117. Objective - Vital Signs/Intake and Output Vital Signs (last 24 hours): Temp Pulse Resp BP Pulse Ox 97.9 F 104 H 20 138/82 96 05/11/18 08:55 05/11/18 08:55 05/11/18 08:55 05/11/18 10:55 05/11/18 08:55 Intake and Output: 05/11/18 05/11/18 06:59 18:59 Intake Total 1000 Output Total 1050 Balance -50 - Medications Medications: Current Medications Amlodipine Besylate (Norvasc) 10 mg PO DAILY [facility] Last Admin: 05/11/18 10:54 Dose: 10 mg Arformoterol Tartrate (Brovana) 15 mcg IH [id number] [facility] Last Admin: 05/11/18 08:25 Dose: 15 mcg Atorvastatin Calcium (Lipitor) 10 mg PO DIN [facility] Last Admin: 05/10/18 18:27 Dose: 10 mg Budesonide (Pulmicort Respules) 0.25 mg IH [id number] [facility] Last Admin: 05/11/18 08:25 Dose: 0.25 mg Calcium Acetate (Phoslo) 667 mg PO WM [facility] Last Admin: 05/11/18 10:47 Dose: Not Given Darbepoetin José Miguel (Aranesp) 100 mcg SC QWK [facility] Ferrous Gluconate (Fergon) 324 mg PO TID [facility] Last Admin: 05/11/18 14:56 Dose: 324 mg Furosemide (Lasix) 40 mg PO DAILY [facility] Last Admin: 05/11/18 10:55 Dose: 40 mg Ceftaroline Fosamil 200 mg/ (Sodium Chloride) 50 mls @ 50 mls/hr IVPB 0600,1800 [facility]; Protocol Last Admin: 05/11/18 05:20 Dose: 50 mls/hr Magnesium Oxide (Mag-Ox) 400 mg PO BID [facility] Pantoprazole Sodium (Protonix Ec Tab) 40 mg PO 0600 [facility] Last Admin: 05/11/18 05:20 Dose: 40 mg Sodium Bicarbonate (Sodium Bicarbonate Tab) 650 mg PO BID [facility] Last Admin: 05/11/18 10:53 Dose: 650 mg Tamsulosin HCl (Flomax) 0.4 mg PO DAILY [facility] Last Admin: 05/11/18 10:54 Dose: 0.4 mg Thiamine HCl (Vitamin B1 Tab) 100 mg PO DAILY [facility] Last Admin: 05/11/18 10:54 Dose: 100 mg Tramadol HCl (Ultram) 50 mg PO TID PRN PRN Reason: Pain, moderate (4-7) Last Admin: 05/10/18 09:54 Dose: 50 mg Vitamin B Complex/Vit C/Folic Acid (Nephro-Rober) 1 tab PO 0800 [facility] Last Admin: 05/11/18 10:53 Dose: 1 tab - Labs Labs: 05/11/18 10:30 05/11/18 10:30 PT 37.9 SECONDS (9.4-12.5) H 05/11/18 10:30 INR 3.22 05/11/18 10:30 APTT 30.7 Seconds (25.1-36.5) 05/06/18 06:00 - Constitutional Appears: Non-toxic, No Acute Distress, Chronically Ill - Head Exam Head Exam: ATRAUMATIC, NORMOCEPHALIC - Eye Exam Eye Exam: EOMI, PERRL Pupil Exam: NORMAL ACCOMODATION, PERRL - ENT Exam ENT Exam: Mucous Membranes Moist, Normal External Ear Exam, TM's Normal Bilaterally - Neck Exam Neck Exam: Full ROM, Normal Inspection - Respiratory Exam Respiratory Exam: Clear to Ausculation Bilateral, NORMAL BREATHING PATTERN. absent: Rales, Rhonchi, Wheezes - Cardiovascular Exam Cardiovascular Exam: REGULAR RHYTHM, RRR, +S1, +S2 - GI/Abdominal Exam GI & Abdominal Exam: Soft, Normal Bowel Sounds. absent: Distended, Tenderness - Extremities Exam Extremities Exam: Full ROM Additional comments: Vasc: DP/PT 2/4. Skin temperature warm to warm from proximal to distal WNL. Cap refill < 3 seconds to all digits. No edema noted to right leg at this time Neuro: Epicritic and protective sensation grossly intact b/l Derm: An open wound at the surgical site of debridement and graft measure about 20cm X 4 cm X 0.3 cm. No pus, no purulent discharge or drainage, no clinical signs of infection. minimal periwound erythema. MSK: Minimal POP at the periwound site. ROM WNL at all major joints. Muscle power intact 5/5 in all major muscle groups. No other gross deformities noted Wound site is improved compared to two weeks ago. Patient had at least plus swe lling at home of bilateral lower extremities that started 4 days prior to admission. - Neurological Exam Neurological Exam: Alert, Awake, CN II-XII Intact, Oriented x3 - Psychiatric Exam Psychiatric exam: Normal Affect, Normal Mood - Skin Additional comments: As per leg exam. Assessment and Plan - Assessment and Plan (Free Text) Assessment: 82 yo male with infected right leg with Serratia, Proteus, and MRSA in the past two months. The patient was given IV home infusion with IV Vancomycin and Rocephin. Unfortunately, the patient's renal function worsened over the course of a week to a creatinine of 4.0 and patient was told to come to the hospital for further evaluation. For now no further Vancomycin dosing. Recheck Vancomycin levels (random) periodically. Monitor Renal function. Strict output monitoring. Standard level Rocephin dosing. Wound care as per Dr. Pham. Case discussed with Dr. Pham prior to [place] [facility] Evaluated by Renal Dr. Spears. Patient with minimal complaints. Unfortunately, the creatinine has increased to 5.8. Vancomycin level has decreased to 32.1. Stopped all antibiotics at this time. Urine output remains extremely limited with a total of 400 ml for half of the day. Rechecking Vancomycin level. Creatinine of 6.3. Check I&O especially urinary output for this patient... noted that the patient has not been compliant with using the urinal. Continue off of all antibiotics. Worried about the ESR during this hospitalization being 105. The Vancomycin l evel remains at 32.1 which remains a poor sign for the renal function and the patient's kidney recovery. High probability for requiring dialysis. Vancomycin level for 05/09/2018 is 29.3. Level for 05/11/2018 is 22.7. ESR is up to 117. On Teflaro 200 mg IV q12hrs, will need 3-4 weeks with home in fusion. Thank you for allowing me to participate in the care of this patient, we will follow with you.
--- NOTE | 2018-05-11 18:56 | PN ---
DATE: 05/11/2018 SUBJECTIVE: The patient is an 82-year-old, seen and examined. Anxious to go home. He states he is feeling well. No nausea or vomiting. No diarrhea. Did not like food here. PHYSICAL EXAMINATION: VITAL SIGNS: The patient is afebrile, pulse 104, respirations 20, blood pressure 138/82. LUNGS: Bilateral fair airflow. No rhonchi or crackles. HEART: S1 and S2 audible. ABDOMEN: Soft, nontender. No rebound, no guarding. NEUROLOGICAL: The patient is awake, alert, oriented, and communicative. EXTREMITIES: Right terrazas is in the dressing. LABORATORY DATA: WBC is 8.4, hemoglobin 8.6, hematocrit 26.2, and platelets of 161. PT 37.9, INR 3.22. Chemistry: Sodium 131, potassium 4.0, chloride 99, CO2 29, BUN 53, creatinine 6.4, blood sugar of 141. ASSESSMENT: 1. Right terrazas Serratia marcescens wound infection. 2. Epwqx-ji-[id number] kidney disease. 3. Deep venous thrombosis. 4. Hypertension. PLAN: I spoke to the patient's daughter. She is unable to pick him today. I spoke to Dr. Spears. We can hold off dialysis for now. He will follow the patient next week and follow-up his BUN and creatinine and make arrangements. Since the patient is going to need dialysis in one hour later, we will hold Coumadin for today. We will continue all other medications. Continue on . The patient will have PICC line placed to finish his course of antibiotics as an outpatient. ID recommends to antibiotics. Aquilino Garcia MD
--- NOTE | 2018-05-11 23:25 | CP.PCM.PN ---
Subjective - Date & Time of Evaluation Date of Evaluation: 05/11/18 Time of Evaluation: 18:00 - Subjective Subjective: Comfortable in bed. No events overnight. Iron studies showed normal iron. H/O heavy ETOH abuse. Objective - Vital Signs/Intake and Output Vital Signs (last 24 hours): Temp Pulse Resp BP Pulse Ox 98.1 F 101 H 20 131/65 95 05/11/18 17:02 05/11/18 17:02 05/11/18 17:02 05/11/18 17:02 05/11/18 17:02 - Medications Medications: Current Medications Amlodipine Besylate (Norvasc) 10 mg PO DAILY [facility] Last Admin: 05/11/18 10:54 Dose: 10 mg Arformoterol Tartrate (Brovana) 15 mcg IH [id number] [facility] Last Admin: 05/11/18 20:15 Dose: 15 mcg Atorvastatin Calcium (Lipitor) 10 mg PO DIN [facility] Last Admin: 05/11/18 16:32 Dose: 10 mg Budesonide (Pulmicort Respules) 0.25 mg IH [id number] [facility] Last Admin: 05/11/18 20:15 Dose: 0.25 mg Calcium Acetate (Phoslo) 667 mg PO WM [facility] Last Admin: 05/11/18 18:57 Dose: 667 mg Darbepoetin José Miguel (Aranesp) 100 mcg SC QWK [facility] Ferrous Gluconate (Fergon) 324 mg PO TID [facility] Last Admin: 05/11/18 18:57 Dose: 324 mg Furosemide (Lasix) 40 mg PO DAILY [facility] Last Admin: 05/11/18 10:55 Dose: 40 mg Ceftaroline Fosamil 200 mg/ (Sodium Chloride) 50 mls @ 50 mls/hr IVPB 0600,1800 [facility]; Protocol Last Admin: 05/11/18 20:38 Dose: 50 mls/hr Magnesium Oxide (Mag-Ox) 400 mg PO BID [facility] Last Admin: 05/11/18 18:57 Dose: 400 mg Pantoprazole Sodium (Protonix Ec Tab) 40 mg PO 0600 [facility] Last Admin: 05/11/18 05:20 Dose: 40 mg Sodium Bicarbonate (Sodium Bicarbonate Tab) 650 mg PO BID [facility] Last Admin: 05/11/18 18:57 Dose: 650 mg Tamsulosin HCl (Flomax) 0.4 mg PO DAILY [facility] Last Admin: 05/11/18 10:54 Dose: 0.4 mg Thiamine HCl (Vitamin B1 Tab) 100 mg PO DAILY [facility] Last Admin: 05/11/18 10:54 Dose: 100 mg Tramadol HCl (Ultram) 50 mg PO TID PRN PRN Reason: Pain, moderate (4-7) Last Admin: 05/10/18 09:54 Dose: 50 mg Vitamin B Complex/Vit C/Folic Acid (Nephro-Rober) 1 tab PO 0800 [facility] Last Admin: 05/11/18 10:53 Dose: 1 tab - Labs Labs: 05/11/18 10:30 05/11/18 10:30 PT 37.9 SECONDS (9.4-12.5) H 05/11/18 10:30 INR 3.22 05/11/18 10:30 APTT 30.7 Seconds (25.1-36.5) 05/06/18 06:00 - Constitutional Appears: Chronically Ill - Head Exam Head Exam: ATRAUMATIC, NORMAL INSPECTION, NORMOCEPHALIC - Eye Exam Eye Exam: Normal appearance - ENT Exam ENT Exam: Mucous Membranes Moist - Neck Exam Neck Exam: Normal Inspection - Respiratory Exam Respiratory Exam: Clear to Ausculation Bilateral, NORMAL BREATHING PATTERN - Cardiovascular Exam Cardiovascular Exam: REGULAR RHYTHM, +S1, +S2 - GI/Abdominal Exam GI & Abdominal Exam: Soft, Normal Bowel Sounds - Extremities Exam Extremities Exam: Normal Inspection - Back Exam Back Exam: NORMAL INSPECTION - Neurological Exam Neurological Exam: Alert, Oriented x3 - Skin Skin Exam: Pallor Assessment and Plan - Assessment and Plan (Free Text) Assessment: 1. 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 On weekly Aranesp. he is being prepared for HD. To continue aranesp 100 mcgm SQ weekly. If no response can switch to procrit. 2. ETOH abuse : liver functions normal. 3. ESRD : followed by Renal. 4. H/O of recurrent DVT . Continue coumadin. Thank you Dr. Garcia for allowing us to participate in his care.
[2018-05-12] MEDS: Pantoprazole 40 mg EC Tab PO SCH (05:40)
[2018-05-12] MEDS: Arformoterol 15 mcg/2 ml Inh Sol IH SCH ×2 (08:26→20:19)
[2018-05-12] MEDS: Budesonide 0.25 mg/2 ml Inhal Susp UD IH SCH ×2 (08:35→20:19)
[2018-05-12] MEDS: Multivitamin Vitamin B Complex (Nephro-Vite) Tab PO SCH (08:40)
[2018-05-12] MEDS: Magnesium Oxide 400 mg Tab UD PO SCH ×2 (10:09→17:50)
[2018-05-12 10:20] LABS: BASO # 0.02 K/mm3 (0.0-2.0); BASO % 0.3 % (0.0-3.0); EOS # 0.4 (0.0-0.7); EOS % 5.6 % (1.5-5.0); GRAN # 5.77 (1.4-6.5); GRAN % 72.9 % (50.0-68.0); HEMOGLOBIN 8.3 g/dL (14.0-18.0); LYMPH # 0.9 (1.2-3.4); LYMPH % 10.9 % (22.0-35.0); MEAN CELL VOLUME 90.1 fl (80.0-105.0); MEAN CORPUSCULAR HEMOGLOBIN 29.4 pg (25.0-35.0); MEAN CORPUSCULAR HGB CONC 32.7 g/dl (31.0-37.0); MEAN PLATELET VOLUME 8.9 fl (7.0-11.0); MONO # 0.8 (0.1-0.6); MONO % 10.3 % (1.0-6.0); RBC 2.82 10^6/uL (3.5-6.1); RED CELL DISTRIBUTION WIDTH 14.4 % (11.5-14.5); WHITE BLOOD COUNT 7.9 10^3/uL (4.5-11.0)
[2018-05-12 10:27] LABS: INR 2.82; PROTHROMBIN TIME 33.1 SECONDS (9.4-12.5)
[2018-05-12 10:31] LABS: ALB/GLOB RATIO 0.8 (1.1-1.8); ALBUMIN 3.1 g/dL (3.0-4.8); CALCIUM 8.2 mg/dL (8.4-10.5)
--- NOTE | 2018-05-12 14:25 | CP.PCM.PN ---
Subjective - Date & Time of Evaluation Date of Evaluation: 05/12/18 Time of Evaluation: 14:22 - Subjective Subjective: Podiatry progress note for Dr. Leach; 82 y/o M patient seen at bedside for right lower leg surgically debrided and grafted wound. Resting comfortably in bed. Patient is AAOX3 and NAD. Patient reports that he didn't have any pain to the right lower extremity overnight. Denies any acute events overnight. Denies N/V/F/C/SOB/CP. Patient states that he has no other pedal complaints at this time. Objective - Vital Signs/Intake and Output Vital Signs (last 24 hours): Temp Pulse Resp BP Pulse Ox 97.8 F 101 H 20 122/66 95 05/12/18 08:15 05/12/18 08:15 05/12/18 08:15 05/12/18 10:09 05/12/18 08:15 Intake and Output: 05/12/18 05/12/18 06:59 18:59 Intake Total 480 Output Total 175 Balance 305 - Medications Medications: Current Medications Amlodipine Besylate (Norvasc) 10 mg PO DAILY [facility] Last Admin: 05/12/18 10:08 Dose: 10 mg Arformoterol Tartrate (Brovana) 15 mcg IH [id number] [facility] Last Admin: 05/12/18 08:26 Dose: 15 mcg Atorvastatin Calcium (Lipitor) 10 mg PO DIN [facility] Last Admin: 05/11/18 16:32 Dose: 10 mg Budesonide (Pulmicort Respules) 0.25 mg IH [id number] [facility] Last Admin: 05/12/18 08:35 Dose: 0.25 mg Calcium Acetate (Phoslo) 667 mg PO WM [facility] Last Admin: 05/12/18 13:36 Dose: 667 mg Darbepoetin José Miguel (Aranesp) 100 mcg SC QWK [facility] Ferrous Gluconate (Fergon) 324 mg PO TID [facility] Last Admin: 05/12/18 13:36 Dose: 324 mg Furosemide (Lasix) 40 mg PO DAILY [facility] Last Admin: 05/12/18 10:09 Dose: 40 mg Ceftaroline Fosamil 200 mg/ (Sodium Chloride) 50 mls @ 50 mls/hr IVPB 0600,1800 [facility]; Protocol Last Admin: 05/12/18 05:40 Dose: 50 mls/hr Magnesium Oxide (Mag-Ox) 400 mg PO BID [facility] Last Admin: 05/12/18 10:09 Dose: 400 mg Pantoprazole Sodium (Protonix Ec Tab) 40 mg PO 0600 [facility] Last Admin: 05/12/18 05:40 Dose: 40 mg Sodium Bicarbonate (Sodium Bicarbonate Tab) 650 mg PO BID [facility] Last Admin: 05/12/18 10:08 Dose: 650 mg Tamsulosin HCl (Flomax) 0.4 mg PO DAILY [facility] Last Admin: 05/12/18 10:09 Dose: 0.4 mg Thiamine HCl (Vitamin B1 Tab) 100 mg PO DAILY [facility] Last Admin: 05/12/18 10:09 Dose: 100 mg Tramadol HCl (Ultram) 50 mg PO TID PRN PRN Reason: Pain, moderate (4-7) Last Admin: 05/10/18 09:54 Dose: 50 mg Vitamin B Complex/Vit C/Folic Acid (Nephro-Rober) 1 tab PO 0800 [facility] Last Admin: 05/12/18 08:40 Dose: 1 tab - Labs Labs: 05/12/18 10:00 05/12/18 10:00 PT 33.1 SECONDS (9.4-12.5) H 05/12/18 10:00 INR 2.82 05/12/18 10:00 APTT 30.7 Seconds (25.1-36.5) 05/06/18 06:00 - Constitutional Appears: Well, Non-toxic, No Acute Distress - Head Exam Head Exam: ATRAUMATIC, NORMOCEPHALIC - Extremities Exam Additional comments: RLE focused exam Vasc: DP/PT 2/4. Skin temperature warm to warm from proximal to distal WNL. Cap refill < 3 seconds to all digits. No edema noted to right leg at this time Neuro: Epicritic and protective sensation grossly intact b/l Derm: An open wound at the surgical site of debridement and graft measure about 20cm X 4 cm X 0.3 cm. No pus, no purulent discharge but moderate serous drainage present, no clinical signs of infection. No erythema noted. MSK: Mild Pain on palpation at the periwound site. ROM WNL at all major joints. Muscle power intact 5/5 in all major muscle groups. No other gross deformities noted - Neurological Exam Neurological Exam: Alert, Awake, Oriented x3 - Psychiatric Exam Psychiatric exam: Normal Affect, Normal Mood Assessment and Plan - Assessment and Plan (Free Text) Assessment: 82 y/o M patient seen at bedside for right lower leg surgically debrided and grafted wound. Plan: Patient seen and evaluated at the bedside. Discussed in plan detail with Dr. Leach Charts, labs and vitals reviewed; Afebrile, absent leukocytosis Dressing taken down, wound cleansed sterile saline, dressed with maxorb, ABD and DSD Wound Cx; Serratia Marcescens Right Leg MRI; No evidence of OM. B/L POLLO/PVR; Improved arterial waveform compared to the preinterventional study, Left SFA and tibial disease. Continue management as per primary team ID on board; recommendations appreciated Continue IV Abx as per ID As per ID patient will be discharged home on Telfaro 500mg Q12 for 3 weeks Patient to follow up With [facility] at the wound care center upon discharge on weekly bases. Podiatry will continue to follow up the patient while in house
--- NOTE | 2018-05-12 15:41 | CP.PCM.PN ---
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 also with igG Earling paraproteinemia Hypertensive Chronic Kidney Disease (I12.9) Chronic Kidney Disease (N18.3) Stage 3 with ? mg proteinuria (R80.9) acute on chronic anemia, FOB + with hx of gastric ulcer COPD, DVT, hx of Etoh and smoking hypoalbuminemia, metabolic acidosis hypomag, hyperphos Plan Cr still in 6 range. spoke with daughter and she is not agreeable for dialysis at present. she had refused kidney biopsy. pt planned for d/c SNF, will need close f/up within 1 week Hypertension control with meds as ordered. Maintain hemodynamics stable. Avoid hypotension. Patient not on ACEI/ARB due to recent HARSH. Monitor Input/Output, daily weights and renal function with basic metabolic panel added iron, MVI, phos binders and sodium bicarb. aransep weekly added PPI and thiamine as well added flomax as PVR 168 mL GI follow up noted pt not a candidate for treatment with steroids due to hx gastric ulcer, active infection, FOB + with anemia. risks outweighs less certain benefits. continue with lasix 40 mg orally daily. medical management of hyperkalemia as needed noted heme eval for anemia and paraproteinemia Dose meds/antibiotics for reduced GFR. Avoid fleets enema/magnesium based laxatives. Avoid nephrotoxins/NSAIDs/ iodinated contrast (unless needed emergently) Glycemic control Further work up/management as per primary team Thanks for allowing me to participate in care of your patient. Will follow patient with you. Please call if any Qs. had d/w team Dr Froilan Spears Office: [phone] Reason for consult: Acute Kidney Injury HPI: Pt is a 82 M with hx of HTN, COPD, DVT on coumadin, etoh/smoker (quit 6 months ago), anemia, CKD 3 with baseline cr 1.4-1.5 presented with complaints of abnormal kidney fxn and HARSH Denies OTC/herbal meds or NSAIDs No recent iodinated contrast exposure. No obvious episodes of low BP. pt was treated with abx recently as vanco and cephalosporins pt not aware about kidney disease in past. feels in usual health except rt leg swelling ROS: wants to go home Cardiovascular: No chest pain. Pulmonary: No shortness of breath now Gastrointestinal: denies abdominal pain No nausea. No vomiting. Genitourinary: No pain while urinating. Denies blood in urine. All other negative except as mentioned in HPI Physical Examination: General Appearance: Comfortable, in no acute respiratory distress, co-operative. somewhat cachexic Vitals reviewed and noted as below Head; Atraumatic, normocephalic ENT: no ulcers no thrush. Tongue is midline. Oropharynx: no rash or ulcers. EYES: Pupils are equal, round and reactive to light accommodation. Eye muscles and extraocular movement intact. Sclera is anicteric. Neck; supple no lymphadenopathy, no thyromegaly or bruit Lungs: Normal respiratory rate/effort. Breath sounds bilateral clearer Heart: Normal rate. s1s2 normal. No rub or gallop. Extremities: no edema. No varicose veins. RLE swelling, dressing + Neurological: Patient is alert, awake and oriented to person, place and time. No focal deficit. Strength bilateral appropriate and equal Skin: Warm and dry. Normal turgor. No rash. Palpitation: Normal elasticity for age Abdomen: Abdomen is soft. Bowel sounds +. There is no abdominal tenderness, no guarding/rigidity ? hepatomegaly Psych: lack insight and normal affect/mood MSK: no joint tenderness or swelling. Digits and nails normal, no deformity : kidney not palpable Labs/imaging reviewed. Past medical history, past surgical history, family history, social history, allergy reviewed and noted as below Family hx: no hx of CKD. Rest non-contributory Objective - Vital Signs/Intake and Output Vital Signs (last 24 hours): Temp Pulse Resp BP Pulse Ox 97.8 F 101 H 20 122/66 95 05/12/18 08:15 05/12/18 08:15 05/12/18 08:15 05/12/18 10:09 05/12/18 08:15 Intake and Output: 05/12/18 05/12/18 06:59 18:59 Intake Total 480 Output Total 175 Balance 305 - Medications Medications: Current Medications Amlodipine Besylate (Norvasc) 10 mg PO DAILY [facility] Last Admin: 05/12/18 10:08 Dose: 10 mg Arformoterol Tartrate (Brovana) 15 mcg IH [id number] [facility] Last Admin: 05/12/18 08:26 Dose: 15 mcg Atorvastatin Calcium (Lipitor) 10 mg PO DIN [facility] Last Admin: 05/11/18 16:32 Dose: 10 mg Budesonide (Pulmicort Respules) 0.25 mg IH [id number] [facility] Last Admin: 05/12/18 08:35 Dose: 0.25 mg Calcium Acetate (Phoslo) 667 mg PO WM [facility] Last Admin: 05/12/18 13:36 Dose: 667 mg Darbepoetin José Miguel (Aranesp) 100 mcg SC QWK [facility] Ferrous Gluconate (Fergon) 324 mg PO TID [facility] Last Admin: 05/12/18 13:36 Dose: 324 mg Furosemide (Lasix) 40 mg PO DAILY [facility] Last Admin: 05/12/18 10:09 Dose: 40 mg Ceftaroline Fosamil 200 mg/ (Sodium Chloride) 50 mls @ 50 mls/hr IVPB 0600,1800 [facility]; Protocol Last Admin: 05/12/18 05:40 Dose: 50 mls/hr Magnesium Oxide (Mag-Ox) 400 mg PO BID [facility] Last Admin: 05/12/18 10:09 Dose: 400 mg Pantoprazole Sodium (Protonix Ec Tab) 40 mg PO 0600 [facility] Last Admin: 05/12/18 05:40 Dose: 40 mg Sodium Bicarbonate (Sodium Bicarbonate Tab) 650 mg PO BID [facility] Last Admin: 05/12/18 10:08 Dose: 650 mg Tamsulosin HCl (Flomax) 0.4 mg PO DAILY [facility] Last Admin: 05/12/18 10:09 Dose: 0.4 mg Thiamine HCl (Vitamin B1 Tab) 100 mg PO DAILY [facility] Last Admin: 05/12/18 10:09 Dose: 100 mg Tramadol HCl (Ultram) 50 mg PO TID PRN PRN Reason: Pain, moderate (4-7) Last Admin: 05/10/18 09:54 Dose: 50 mg Vitamin B Complex/Vit C/Folic Acid (Nephro-Rober) 1 tab PO 0800 [facility] Last Admin: 05/12/18 08:40 Dose: 1 tab - Labs Labs: 05/12/18 10:00 05/12/18 10:00 PT 33.1 SECONDS (9.4-12.5) H 05/12/18 10:00 INR 2.82 05/12/18 10:00 APTT 30.7 Seconds (25.1-36.5) 05/06/18 06:00
[2018-05-12 16:15] VITALS: O2SAT 96
--- NOTE | 2018-05-12 16:47 | CP.PCM.PN ---
Subjective - Date & Time of Evaluation Date of Evaluation: 05/12/18 Time of Evaluation: 14:00 - Subjective Subjective: Infectious Disease Follow Up: May 12, 2018 82 yo male seen in my office about 2 weeks ago. The patient with wound cultures that grew Serratia, Proteus, and MRSA from the past two months. Treatment with Home IV of Ceftriaxone and Vancomycin IV. Initial home chemistries showed a Creatinine of 1.7 (2 days into medication administration start). Labs repeats 5 days later showed a Vancomycin through of 79 and Creatinine of 2.9. Antibiotics were stopped and 1L of 1/s NS administered a day. Labs repeated 3 days later showed Creatinine of 4.0 and Vancomycin trough of 60. Informed the patient to come to [facility] for further evaluation and monitoring. The patient denies any problems or complaints but does admit now that his urinary frequency and volume had decreased. Still with no complaints. States that he is comfortable. Random Vancomycin level down to 22.7 on last check. Creatinine at 6.7 today and has still been rising. He is more concerned more with his leg wounds and walking. He remains ignorant of how serious his kidney condition is despite multiple doctors explaining that to him. Patient refusing kidney biopsy at this time. He is refusing dialysis. Wants to go home. He still doesn't understand the significance of his kidney injury. Creatinine of 6.7 today which is continuing to worsen. Last 12 hour urine output of 175 ml. He remains noncompliant with showing us the amount of urine he is making as he will urinate straight into the toilet bowl instead of the urinal. He will only state that he "makes lots of urine". ESR is 117. Objective - Vital Signs/Intake and Output Vital Signs (last 24 hours): Temp Pulse Resp BP Pulse Ox 97.8 F 101 H 20 122/66 95 05/12/18 08:15 05/12/18 08:15 05/12/18 08:15 05/12/18 10:09 05/12/18 08:15 Intake and Output: 05/12/18 05/12/18 06:59 18:59 Intake Total 480 Output Total 175 Balance 305 - Medications Medications: Current Medications Amlodipine Besylate (Norvasc) 10 mg PO DAILY [facility] Last Admin: 05/12/18 10:08 Dose: 10 mg Arformoterol Tartrate (Brovana) 15 mcg IH [id number] [facility] Last Admin: 05/12/18 08:26 Dose: 15 mcg Atorvastatin Calcium (Lipitor) 10 mg PO DIN [facility] Last Admin: 05/11/18 16:32 Dose: 10 mg Budesonide (Pulmicort Respules) 0.25 mg IH [id number] [facility] Last Admin: 05/12/18 08:35 Dose: 0.25 mg Calcium Acetate (Phoslo) 667 mg PO WM [facility] Last Admin: 05/12/18 13:36 Dose: 667 mg Darbepoetin José Miguel (Aranesp) 100 mcg SC QWK [facility] Ferrous Gluconate (Fergon) 324 mg PO TID [facility] Last Admin: 05/12/18 13:36 Dose: 324 mg Furosemide (Lasix) 40 mg PO DAILY [facility] Last Admin: 05/12/18 10:09 Dose: 40 mg Ceftaroline Fosamil 200 mg/ (Sodium Chloride) 50 mls @ 50 mls/hr IVPB 0600,1800 [facility]; Protocol Last Admin: 05/12/18 05:40 Dose: 50 mls/hr Magnesium Oxide (Mag-Ox) 400 mg PO BID [facility] Last Admin: 05/12/18 10:09 Dose: 400 mg Pantoprazole Sodium (Protonix Ec Tab) 40 mg PO 0600 [facility] Last Admin: 05/12/18 05:40 Dose: 40 mg Sodium Bicarbonate (Sodium Bicarbonate Tab) 650 mg PO BID [facility] Last Admin: 05/12/18 10:08 Dose: 650 mg Tamsulosin HCl (Flomax) 0.4 mg PO DAILY [facility] Last Admin: 05/12/18 10:09 Dose: 0.4 mg Thiamine HCl (Vitamin B1 Tab) 100 mg PO DAILY [facility] Last Admin: 05/12/18 10:09 Dose: 100 mg Tramadol HCl (Ultram) 50 mg PO TID PRN PRN Reason: Pain, moderate (4-7) Last Admin: 05/10/18 09:54 Dose: 50 mg Vitamin B Complex/Vit C/Folic Acid (Nephro-Rober) 1 tab PO 0800 [facility] Last Admin: 05/12/18 08:40 Dose: 1 tab - Labs Labs: 05/12/18 10:00 05/12/18 10:00 PT 33.1 SECONDS (9.4-12.5) H 05/12/18 10:00 INR 2.82 12/12/18 10:00 APTT 30.7 Seconds (25.1-36.5) 05/06/18 06:00 - Constitutional Appears: Non-toxic, No Acute Distress, Chronically Ill - Head Exam Head Exam: ATRAUMATIC, NORMOCEPHALIC - Eye Exam Eye Exam: EOMI, PERRL Pupil Exam: NORMAL ACCOMODATION, PERRL - ENT Exam ENT Exam: Mucous Membranes Moist, Normal External Ear Exam, TM's Normal Bilaterally - Neck Exam Neck Exam: Full ROM, Normal Inspection - Respiratory Exam Respiratory Exam: Clear to Ausculation Bilateral, NORMAL BREATHING PATTERN. absent: Rales, Rhonchi, Wheezes - Cardiovascular Exam Cardiovascular Exam: REGULAR RHYTHM, RRR, +S1, +S2 - GI/Abdominal Exam GI & Abdominal Exam: Soft, Normal Bowel Sounds. absent: Distended, Tenderness - Extremities Exam Extremities Exam: Full ROM - Neurological Exam Neurological Exam: Alert, Awake, CN II-XII Intact, Oriented x3 - Psychiatric Exam Psychiatric exam: Normal Affect, Normal Mood - Skin Additional comments: As per leg exam Assessment and Plan - Assessment and Plan (Free Text) Assessment: 82 yo male with infected right leg with Serratia, Proteus, and MRSA in the past two months. The patient was given IV home infusion with IV Vancomycin and Rocephin. Unfortunately, the patient's renal function worsened over the course of a week to a creatinine of 4.0 and patient was told to come to the hospital for further evaluation. For now no further Vancomycin dosing. Recheck Vancomycin levels (random) periodically. Monitor Renal function. Strict output monitoring. Standard level Rocephin dosing. Wound care as per Dr. Pham. Case discussed with Dr. Pham prior to admission to [facility]. Evaluated by Renal Dr. Spears. Patient with minimal complaints. Unfortunately, the creatinine has increased to 5.8 and continued to increase to 6.7 now. Stopped all antibiotics at this time. Urine output remains extremely limited with a total of 400 ml for half of the day. Rechecking Vancomycin level. Creatinine of 6.3. Check I&O especially urinary output for this patient... noted that the patient has not been compliant with using the urinal. Continue off of all antibiotics. Worried about the ESR during this hospitalization being 105. The Vancomycin level remains at 32.1 which remains a poor sign for the renal function and the patient's kidney recovery. High probability for requiring dialysis. Vancomycin level for 05/09/2018 is 29.3. Level for 05/11/2018 is 22.7. ESR is up to 117. On Teflaro 200 mg IV q12hrs, will need 3-4 weeks with home infusion. Thank you for allowing me to participate in the care of this patient, we will follow with you.
--- NOTE | 2018-05-13 00:49 | PN ---
DATE: 05/12/2018 SUBJECTIVE: The patient is an 82-year-old, seen and examined, lying in bed, seems to be comfortable, anxious to go home. Plan was to send him home and get antibiotic at home, but since the antibiotic is expensive, it was not covered by insurance, so the plan is to send him to subacute rehab, although the patient is not happy; however, the plan will be made. [employer] are in the process of making arrangement. PHYSICAL EXAMINATION GENERAL: Today, he is awake, alert, oriented and communicative. VITAL SIGNS: The patient is afebrile. Pulse 94, respirations 18, blood pressure 120/60. LUNGS: Bilateral fair airflow. No rhonchi or crackles. HEART: S1 and S2 audible. ABDOMEN: Soft, nontender. No rebound, no guarding. NEUROLOGICAL: He is awake, alert, oriented, communicative, answering appropriately. EXTREMITIES: Bilateral leg, no edema. Right terrazas is in a dressing. The patient is able to ambulate. LABORATORY DATA: WBC 7.9, hemoglobin 8.3, hematocrit 25.4, platelets of 158. Chemistry: Sodium 135, potassium 4.8, chloride 99, CO2 of 27, BUN 54, creatinine 6.7, blood sugar 177. ASSESSMENT: 1. [id number] renal failure. 2. Right terrazas ulcer, status post debridement and persistent growth of Serratia, Proteus and methicillin-resistant Staphylococcus aureus. Currently, he is on Teflaro. He was given Rocephin and vancomycin earlier. 3. History of right leg deep venous thrombosis. 4. History of chronic obstructive pulmonary disease. PLAN: Currently, the patient is on Teflaro. Podiatry team is taking care of his wound and changing daily dressing. We will reevaluate in the a.m. and make disposition plan after discussing with [employer]. Aquilino Garcia MD
[2018-05-13] MEDS: Pantoprazole 40 mg EC Tab PO SCH (06:11)
--- NOTE | 2018-05-13 08:25 | CP.PCM.PCO ---
Physician Communication Note - Physician Communication Note Physician Communication Note: patient is medically cleared for D/C to [facility]
[2018-05-13] MEDS: Budesonide 0.25 mg/2 ml Inhal Susp UD IH SCH (08:40)
[2018-05-13 09:06] VITALS: BP 122/68; PULSE 87; RESP 21; TEMP 98
--- NOTE | 2018-05-13 09:49 | CP.PCM.PN ---
Subjective - Date & Time of Evaluation Date of Evaluation: 05/13/18 Time of Evaluation: 09:48 - Subjective Subjective: Podiatry progress note for Dr. Leach; 82 y/o M patient seen at bedside for right lower leg surgically debrided and grafted wound. Resting comfortably in bed. Patient is AAOX3 and NAD. Patient reports that he didn't have any pain to the right lower extremity overnight. Denies any acute events overnight. Denies N/V/F/C/SOB/CP. Patient states that he has no other pedal complaints at this time. Objective - Vital Signs/Intake and Output Vital Signs (last 24 hours): Temp Pulse Resp BP Pulse Ox 98 F 87 21 122/68 96 05/13/18 09:05 05/13/18 09:05 05/13/18 09:05 05/13/18 09:05 05/13/18 09:05 Intake and Output: 05/13/18 05/13/18 06:59 18:59 Intake Total 480 Output Total 800 Balance -320 - Medications Medications: Current Medications Amlodipine Besylate (Norvasc) 10 mg PO DAILY [facility] Last Admin: 05/12/18 10:08 Dose: 10 mg Arformoterol Tartrate (Brovana) 15 mcg IH [id number] [facility] Last Admin: 05/12/18 20:19 Dose: 15 mcg Atorvastatin Calcium (Lipitor) 10 mg PO DIN [facility] Last Admin: 05/12/18 17:50 Dose: 10 mg Budesonide (Pulmicort Respules) 0.25 mg IH [id number] [facility] Last Admin: 05/13/18 08:40 Dose: 0.25 mg Calcium Acetate (Phoslo) 667 mg PO WM [facility] Last Admin: 05/12/18 17:50 Dose: 667 mg Darbepoetin José Miguel (Aranesp) 100 mcg SC QWK [facility] Ferrous Gluconate (Fergon) 324 mg PO TID [facility] Last Admin: 05/12/18 17:50 Dose: 324 mg Furosemide (Lasix) 40 mg PO DAILY [facility] Last Admin: 05/12/18 10:09 Dose: 40 mg Ceftaroline Fosamil 200 mg/ (Sodium Chloride) 50 mls @ 50 mls/hr IVPB 0600,1800 [facility]; Protocol Last Admin: 05/13/18 06:11 Dose: 50 mls/hr Magnesium Oxide (Mag-Ox) 400 mg PO BID [facility] Last Admin: 05/12/18 17:50 Dose: 400 mg Pantoprazole Sodium (Protonix Ec Tab) 40 mg PO 0600 [facility] Last Admin: 05/13/18 06:11 Dose: 40 mg Sodium Bicarbonate (Sodium Bicarbonate Tab) 650 mg PO BID [facility] Last Admin: 05/12/18 17:50 Dose: 650 mg Tamsulosin HCl (Flomax) 0.4 mg PO DAILY [facility] Last Admin: 05/12/18 10:09 Dose: 0.4 mg Thiamine HCl (Vitamin B1 Tab) 100 mg PO DAILY [facility] Last Admin: 05/12/18 10:09 Dose: 100 mg Tramadol HCl (Ultram) 50 mg PO TID PRN PRN Reason: Pain, moderate (4-7) Last Admin: 05/10/18 09:54 Dose: 50 mg Vitamin B Complex/Vit C/Folic Acid (Nephro-Rober) 1 tab PO 0800 [facility] Last Admin: 05/12/18 08:40 Dose: 1 tab - Labs Labs: 05/12/18 10:00 05/12/18 10:00 PT 33.1 SECONDS (9.4-12.5) H 05/12/18 10:00 INR 2.82 05/12/18 10:00 APTT 30.7 Seconds (25.1-36.5) 05/06/18 06:00 - Constitutional Appears: Well, Non-toxic, No Acute Distress - Head Exam Head Exam: ATRAUMATIC, NORMOCEPHALIC - Extremities Exam Additional comments: RLE focused exam Vasc: DP/PT 2/4. Skin temperature warm to warm from proximal to distal WNL. Cap refill < 3 seconds to all digits. No edema noted to right leg at this time Neuro: Epicritic and protective sensation grossly intact b/l Derm: An open wound measure about 20cm X 5 cm X 0.1 cm. No pus, no purulent discharge but moderate serous drainage present, no clinical signs of infection. No erythema noted. MSK: Mild Pain on palpation at the periwound site. ROM WNL at all major joints. Muscle power intact 5/5 in all major muscle groups. No other gross deformities noted - Neurological Exam Neurological Exam: Alert, Awake, Oriented x3 - Psychiatric Exam Psychiatric exam: Normal Affect, Normal Mood Assessment and Plan - Assessment and Plan (Free Text) Assessment: 82 y/o M patient seen at bedside for right lower leg surgically debrided and grafted wound. Plan: Patient seen and evaluated at the bedside. Discussed in plan detail with Dr. Leach Charts, labs and vitals reviewed; Afebrile, absent leukocytosis Dressing taken down, wound cleansed sterile saline, dressed with maxorb, ABD and DSD Wound Cx; Serratia Marcescens Right Leg MRI; No evidence of OM. B/L POLLO/PVR; Improved arterial waveform compared to the preinterventional study, Left SFA and tibial disease. Continue management as per primary team ID on board; recommendations appreciated Continue IV Abx as per ID As per ID patient is on Telfaro 200 mg Q12 IV, He will need 3-4 weeks with home infusion. Patient to follow up With [facility] at the wound care center upon discharge on weekly bases. Podiatry will continue to follow up the patient while in house
[2018-05-13] MEDS: Magnesium Oxide 400 mg Tab UD PO SCH (10:08)
[2018-05-13] MEDS: Multivitamin Vitamin B Complex (Nephro-Vite) Tab PO SCH (10:12)
--- NOTE | 2018-05-13 13:03 | DS ---
HISTORY OF PRESENT ILLNESS: The patient is 82-year-old, anxious to go home. We are unable to send home because antibiotic were not covered, he is being transferred to [facility] where he will receive antibiotic and wound care. PHYSICAL EXAMINATION: VITAL SIGNS: He is afebrile, pulse 87, respiration 21, and blood pressure 122/60. LUNGS: Bilateral fair airflow. No rhonchi or crackle. HEART: S1 and S2, audible. ABDOMEN: Soft and nontender. No rebound. No guarding. NEUROLOGIC: The patient is awake, alert, oriented and communicative. ASSESSMENT: 1. Dioic-my-xksoaux renal failure. 2. Chronic renal insufficiency. 3. Chronic anemia. 4. Chronic obstructive pulmonary disease. 5. Right leg deep venous thrombosis. 6. Peripheral vascular disease. 7. Status post angioplasty. PLAN: The patient is being transferred to [facility] were he will receive Teflaro for 3 weeks and we will resume all his medication. He should be on Coumadin and his PT/INR will be monitored over there. Aquilino Garcia MD
--- NOTE | 2018-05-13 13:31 | CP.PCM.PN ---
Subjective - Date & Time of Evaluation Date of Evaluation: 05/13/18 Time of Evaluation: 10:00 - Subjective Subjective: Infectious Disease Follow Up: May 13, 2018 82 yo male seen in my office about 2 weeks ago. The patient with wound cultures that grew Serratia, Proteus, and MRSA from the past two months. Treatment with Home IV of Ceftriaxone and Vancomycin IV. Initial home chemistries showed a Creatinine of 1.7 (2 days into medication administration start). Labs repeats 5 days later showed a Vancomycin through of 79 and Creatinine of 2.9. Antibiotics were stopped and 1L of 1/s NS administered a day. Labs repeated 3 days later showed Creatinine of 4.0 and Vancomycin trough of 60. Informed the patient to come to [facility] for further evaluation and monitoring. The patient denies any problems or complaints but does admit now that his urinary frequency and volume had decreased. Still with no complaints. States that he is comfortable. Random Vancomycin level down to 22.7 on last check. Creatinine at 6.7 today and has still been rising. He is more concerned more with his leg wounds and walking. He remains ignorant of how serious his kidney condition is despite multiple doctors explaining that to him. Patient refusing kidney biopsy at this time. He is refusing dialysis. Wants to go home. He still doesn't understand the significance of his kidney injury. Creatinine of 6.7 today which is continuing to worsen. Last 12 hour urine output of 175 ml. He remains noncompliant with showing us the amount of urine he is making as he will urinate straight into the toilet bowl instead of the urinal. He will only state that he "makes lots of urine". ESR is 117. For transfer to [facility] today. To continue Teflaro renally dosed. HARSH. Objective - Vital Signs/Intake and Output Vital Signs (last 24 hours): Temp Pulse Resp BP Pulse Ox 98 F 87 21 122/68 96 05/13/18 09:05 05/13/18 09:05 05/13/18 09:05 05/13/18 10:09 05/13/18 09:05 Intake and Output: 05/13/18 05/13/18 06:59 18:59 Intake Total 480 Output Total 800 Balance -320 - Labs Labs: 05/12/18 10:00 05/12/18 10:00 PT 33.1 SECONDS (9.4-12.5) H 12/12/18 10:00 INR 2.82 05/12/18 10:00 APTT 30.7 Seconds (25.1-36.5) 05/06/18 06:00 - Constitutional Appears: Non-toxic, No Acute Distress, Chronically Ill - Head Exam Head Exam: ATRAUMATIC, NORMOCEPHALIC - Eye Exam Eye Exam: EOMI, PERRL Pupil Exam: NORMAL ACCOMODATION, PERRL - ENT Exam ENT Exam: Mucous Membranes Moist, Normal External Ear Exam, TM's Normal Bilaterally - Neck Exam Neck Exam: Full ROM, Normal Inspection - Respiratory Exam Respiratory Exam: Clear to Ausculation Bilateral, NORMAL BREATHING PATTERN. absent: Rales, Rhonchi, Wheezes - Cardiovascular Exam Cardiovascular Exam: REGULAR RHYTHM, RRR, +S1, +S2 - GI/Abdominal Exam GI & Abdominal Exam: Soft, Normal Bowel Sounds. absent: Distended, Tenderness - Extremities Exam Extremities Exam: Full ROM - Neurological Exam Neurological Exam: Alert, Awake, CN II-XII Intact, Oriented x3 Additional comments: Vasc: DP/PT 2/4. Skin temperature warm to warm from proximal to distal WNL. Cap refill < 3 seconds to all digits. No edema noted to right leg at this time Neuro: Epicritic and protective sensation grossly intact b/l Derm: An open wound at the surgical site of debridement and graft measure about 20cm X 4 cm X 0.3 cm. No pus, no purulent discharge or drainage, no clinical signs of infection. minimal periwound erythema. MSK: Minimal POP at the periwound site. ROM WNL at all major joints. Muscle power intact 5/5 in all major muscle groups. No other gross deformities noted Wound site is improved compared to two weeks ago. Patient had at least plus swelling at home of bilateral lower extremities that started 4 days prior to admission. - Psychiatric Exam Psychiatric exam: Normal Affect, Normal Mood - Skin Additional comments: As per leg exam. Assessment and Plan - Assessment and Plan (Free Text) Assessment: 82 yo male with infected right leg with Serratia, Proteus, and MRSA in the past two months. The patient was given IV home infusion with IV Vancomycin and Rocephin. Unfortunately, the patient's renal function worsened over the course of a week to a creatinine of 4.0 and patient was told to come to the hospital for further evaluation. For now no further Vancomycin dosing. Recheck Vancomycin levels (random) periodically. Monitor Renal function. Strict output monitoring. Standard level Rocephin dosing. Wound care as per Dr. Pham. Case discussed with Dr. Pham prior to admission to [facility]. Evaluated by Renal Dr. Spears. Patient with minimal complaints. Unfortunately, the creatinine has increased to 5.8. Vancomycin level has decreased to 32.1. Stopped all antibiotics at this time. Urine output remains extremely limited with a total of 400 ml for half of the day. Rechecking Vancomycin level. Creatinine of 6.3. Check I&O especially urinary output for this patient... noted that the patient has not been compliant with using the urinal. Continue off of all antibiotics. Worried about the ESR during this hospitalization being 105. The Vancomycin level remains at 32.1 which remains a poor sign for the renal function and the patient's kidney recovery. High probability for requiring dialysis. Vancomycin level for 05/09/2018 is 29.3. Level for 05/11/2018 is 22.7. ESR is up to 117. On Teflaro 200 mg IV q12hrs, will need 3-4 weeks with home infusion. For transfer to [facility] facility. Thank you for allowing me to participate in the care of this patient, we will follow with you.
[2018-05-17] MEDS ORDERED: Darbepoetin Alfa 60 mcg/ml Inj SC SCH (10:00)
== END 2018-05-13 12:26 | DRG 683 ==
LOC: ED 16:26 → ERH 17:53 → 2RSO 21:13 → 3RSO 05-04 19:30
PROVIDERS: ADMIT Internal Medicine; ATTEND Internal Medicine
PROC: 30233N1 Transfusion of Nonautologous Red Blood Cells into Peripheral Vein, Percutaneous Approach (ICD-10-PCS; 2018-04-30)
PROC: 3E0F7GC Introduction of Other Therapeutic Substance into Respiratory Tract, Via Natural or Artificial Opening (ICD-10-PCS; 2018-05-03)
PROC: 05H533Z Insertion of Infusion Device into Right Subclavian Vein, Percutaneous Approach (ICD-10-PCS; principal; 2018-05-11)
DX: N17.9 Acute kidney failure, unspecified (principal); I13.0 Hypertensive heart and chronic kidney disease with heart failure and stage 1 through stage 4 chronic kidney disease, or unspecified chronic kidney disease; E87.2 Acidosis; L03.115 Cellulitis of right lower limb; L97.819 Non-pressure chronic ulcer of other part of right lower leg with unspecified severity; N18.3 Chronic kidney disease, stage 3 (moderate); T36.8X5A Adverse effect of other systemic antibiotics, initial encounter; I50.9 Heart failure, unspecified; E83.39 Other disorders of phosphorus metabolism; E83.42 Hypomagnesemia; J44.9 Chronic obstructive pulmonary disease, unspecified; D89.2 Hypergammaglobulinemia, unspecified; D63.1 Anemia in chronic kidney disease; N10 Acute pyelonephritis; K31.819 Angiodysplasia of stomach and duodenum without bleeding; I73.9 Peripheral vascular disease, unspecified; E78.00 Pure hypercholesterolemia, unspecified; E87.5 Hyperkalemia; E78.5 Hyperlipidemia, unspecified; N28.1 Cyst of kidney, acquired; K21.9 Gastro-esophageal reflux disease without esophagitis; F10.10 Alcohol abuse, uncomplicated; Z86.718 Personal history of other venous thrombosis and embolism; Z79.01 Long term (current) use of anticoagulants; Z86.14 Personal history of Methicillin resistant Staphylococcus aureus infection; Z86.010 Personal history of colon polyps; Z87.891 Personal history of nicotine dependence

== ENCOUNTER 2018-06-07 17:05 | Inpatient (IN) | payer MEDICARE, OTHER ==
--- NOTE | 2018-06-07 17:49 | ED PDOC ---
Arrival/HPI - General Time Seen by Provider: 06/07/18 17:24 Historian: Patient - History of Present Illness Narrative History of Present Illness (Text): 06/07/18 17:41 Patient is an 82 y/o M, with past medical history of hypertension, COPD, peripheral vascular disease, right leg DVT, and anemia, was transferred from [facility] for evaluation of anemia today. 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 Patient informs history of anemia with past blood transfusions. Patient informs shortness of breath on exertion but denies any other associated somatic complaints. Patient denies any fevers, chills, headache, dizziness, chest pain, cough, abdominal pain, nausea, vomiting, diarrhea, back pain, neck pain, or any other complaints. PMD: Dr. Garcia Time/Duration: Prior to Arrival Symptom Onset: Gradual Symptom Course: Unchanged Activities at Onset: Light Past Medical History - Provider Review Nursing Documentation Reviewed: Yes - Infectious Disease Hx of Infectious Diseases: None - Tetanus Immunization Tetanus Immunization: Unknown - Cardiac Hx Pacemaker: No - Pulmonary Hx Chronic Obstructive Pulmonary Disease (COPD): Yes - Neurological Hx Neurological Disorder: No - HEENT Hx HEENT Disorder: Yes Hx Cataracts: Yes - Renal Hx Renal Failure: Yes - Endocrine/Metabolic Hx Endocrine Disorders: No - Hematological/Oncological Hx Anemia: Yes - Integumentary Hx Dermatological Disorder: Yes Hx Cellulitis: Yes - Musculoskeletal/Rheumatological Hx Arthritis: Yes - Gastrointestinal Hx Gastrointestinal Disorders: Yes Hx Gastroesophageal Reflux: Yes - Genitourinary/Gynecological Hx Genitourinary Disorders: Yes Hx Prostate Problems: Yes - Psychiatric Hx Psychophysiologic Disorder: Yes Hx Depression: Yes Hx Substance Use: No - Past Surgical History Past Surgical History: No Previous - Surgical History Other/Comment: s/p skin graft to RT lower extremity - Anesthesia Hx Anesthesia Reactions: No Hx Malignant Hyperthermia: No - Suicidal Assessment Feels Threatened In Home Enviroment: No Family/Social History - Physician Review Nursing Documentation Reviewed: Yes Family/Social History: No Known Family HX Smoking Status: Never Smoked Hx Alcohol Use: No Hx Substance Use: No Hx Substance Use Treatment: No Allergies/Home Meds Allergies/Adverse Reactions: Allergies No Known Allergies Allergy (Verified 04/08/18 10:56) Home Medications: Home Meds Medication Instructions Recorded Confirmed Omeprazole 40 mg PO BID 01/04/18 04/30/18 Warfarin [Coumadin] 5 mg PO DAILY 02/11/18 04/30/18 Review of Systems - Review of Systems Constitutional: absent: Fevers Eyes: absent: Vision Changes Respiratory: SOB. absent: Cough Cardiovascular: absent: Chest Pain, Palpitations, Edema Gastrointestinal: absent: Abdominal Pain, Diarrhea, Nausea, Vomiting Genitourinary Male: absent: Dysuria, Urinary Output Changes Musculoskeletal: absent: Back Pain, Neck Pain Skin: absent: Rash Neurological: absent: Headache, Dizziness Endocrine: absent: Polyuria Psychiatric: absent: Anxiety, Depression Physical Exam Appearance: Positive for: Non-Toxic, Comfortable, Cachectic Pain Distress: None Mental Status: Positive for: Alert and Oriented X 3 - Systems Exam Head: Present: Atraumatic, Normocephalic Pupils: Present: PERRL Extroacular Muscles: Present: EOMI Conjunctiva: Present: Normal Respiratory/Chest: Present: Clear to Auscultation, Good Air Exchange. No: Respiratory Distress, Accessory Muscle Use Cardiovascular: Present: Normal S1, S2, Irregular Rhythm (Irregularly irregular). No: Murmurs Abdomen: No: Tenderness, Distention, Peritoneal Signs Back: Present: Normal Inspection Upper Extremity: Present: Other (PIC line to right arm). No: Cyanosis, Edema Lower Extremity: Present: Other (Dressing noted to right foot). No: Edema Neurological: Present: GCS=15, CN II-XII Intact, Speech Normal Skin: Present: Warm, Dry, Normal Color. No: Rashes Psychiatric: Present: Alert, Oriented x 3, Normal Insight, Normal Concentration Medical Decision Making ED Course and Treatment: 06/07/18 17:43 Impression: 82 year old male presents to the ED for evaluation of low hemoglobin and shortness of breath on exertion. Plan: -- Labs -- EKG -- Blood Transfusion -- Reassess and disposition Prior Visits: Notes and results from previous visits were reviewed. Progress Notes: 06/07/18 18:13 EKG: Ordered, reviewed, and independently interpreted the EKG. Rate : 86 BPM Rhythm : NSR with PVCs Interpretation : RBBB 06/07/18 18:13 Patient gave consent to blood transfusion. Grandson and daughter present at bedside as witness. 06/07/18 19:22 Hgb 8. Creatinine at baseline. 06/07/18 19:[address] Garcia, who is aware and agrees with ED management plan, accepts patient admission to Telemetry. Dr. Garcia was made aware that troponin was not drawn since patient did not complain of any chest pain. - EKG Interpretation Interpreted by ED Physician: Yes Type: 12 lead EKG - Scribe Statement The provider has reviewed the documentation as recorded by the Scribe Jasmin Whitfield. All medical record entries made by the Scribe were at my direction and personally dictated by me. I have reviewed the chart and agree that the record accurately reflects my personal performance of the history, physical exam, medical decision making, and the department course for this patient. I have also personally directed, reviewed, and agree with the discharge instructions and disposition. Disposition/Present on Arrival - Present on Arrival Any Indicators Present on Arrival: No History of DVT/PE: No History of Uncontrolled Diabetes: No Urinary Catheter: No History Surgical Site Infection Following: None - Disposition Have Diagnosis and Disposition been Completed?: Yes Diagnosis: Anemia, Renal failure Disposition: HOSPITALIZED Disposition Time: 17:48 Patient Plan: Observation Patient Problems: Current Active Problems Problem Status Onset Anemia Acute Renal failure Acute Condition: FAIR Referrals: Aquilino Garcia MD [Primary Care Provider] - Follow up with primary
[2018-06-07 19:06] LABS: BASO # 0.02 K/mm3 (0.0-2.0); BASO % 0.2 % (0.0-3.0); EOS # 0.3 (0.0-0.7); EOS % 3.2 % (1.5-5.0); GRAN # 7.06 (1.4-6.5); GRAN % 77.8 % (50.0-68.0); LYMPH # 0.7 (1.2-3.4); LYMPH % 8.2 % (22.0-35.0); MEAN CELL VOLUME 90.8 fl (80.0-105.0); MEAN CORPUSCULAR HEMOGLOBIN 27.2 pg (25.0-35.0); MEAN PLATELET VOLUME 9.9 fl (7.0-11.0); MONO % 10.6 % (1.0-6.0); RBC 2.94 10^6/uL (3.5-6.1); WHITE BLOOD COUNT 9.1 10^3/uL (4.5-11.0)
[2018-06-07 19:10] LABS: ALB/GLOB RATIO 0.9 (1.1-1.8); ALBUMIN 3.8 g/dL (3.0-4.8); CALCIUM 8.7 mg/dL (8.4-10.5)
[2018-06-07 19:15] LABS: INR 2.45; PARTIAL THROMBOPLASTIN TIME 42.4 Seconds (25.1-36.5); PROTHROMBIN TIME 28.7 SECONDS (9.4-12.5)
--- NOTE | 2018-06-07 20:44 | HP ---
DATE OF EXAM: 06/07/2018 HISTORY OF PRESENT ILLNESS: The patient is 82-year-old, known to me from multiple previous admissions, was transferred from [facility], where he was receiving IV antibiotics and got a call from caring doctor over there, Dr. Yepez, that his regular blood work was done, and he was found to be anemic with hemoglobin of 6.5, and he has worsening kidney function. So, he was referred to the emergency room for further evaluation. The patient does have increasing weakness and shortness of breath. No history of fever or chills. No history of nausea or vomiting. PAST MEDICAL HISTORY: Significant for: 1. Hypertension. 2. COPD. 3. Severe peripheral vascular disease, status post angioplasty. 4. History of right leg DVT. 5. Chronic anemia. 6. History of duodenal ulcer. 7. Status post right terrazas skin graft. 8. Acute on chronic renal insufficiency. 9. History of coagulation disorder. ALLERGIES: HE IS NOT ALLERGIC TO ANY MEDICATIONS. MEDICATIONS IN THE INTERMEDIATE: He was on tramadol 50 mg 3 times a day, amlodipine 10 mg daily, Coumadin 5 mg daily, thiamine 100 mg daily, Flomax 0.4 daily, sodium bicarbonate 650 twice a day, Protonix 40 daily, omeprazole 40 mg twice a day, magnesium oxide 400 twice a day, Lasix 40 mg daily, Teflaro 200 every 12 hours, atorvastatin 10 mg daily, and Brovana. SOCIAL HISTORY: He used to be a heavy smoker and heavy drinker, and he lives by himself. He has a daughter around who really takes care of. PHYSICAL EXAMINATION: GENERAL: The patient is awake, alert, oriented, able to communicate. VITAL SIGNS: He is afebrile, pulse 78, respirations 18, blood pressure 141/84. LUNGS: Bilateral diffusely decreased breath sounds. HEART: S1 and S2 audible. ABDOMEN: Soft, nontender. No rebound. No guarding. NEUROLOGICAL: The patient is awake, alert, oriented, able to communicate. EXTREMITIES: On the right leg, he is in the dressing. LABORATORY EXAMINATION: WBC is 9.1, hemoglobin 8, hematocrit 26.7, platelets of 127. PT 28.7, INR 2.45. Chemistry: Sodium 139, potassium 4.4, chloride 105, CO2 of 25, BUN 57, creatinine 5.1, blood sugar of 121. LFTs are within normal limits. ASSESSMENT: 1. Symptomatic anemia. 2. Healing right terrazas ulcer, status post skin graft. 3. History of right leg deep venous thrombosis. 4. Peripheral vascular disease. 5. Hypertension. 6. Chronic obstructive pulmonary disease. PLAN: The patient will be admitted. We will resume his medications, get Nephrology consult. We will also get Podiatry consult for Dr. Pham, who has been following his wound, and also evaluate the patient in a.m. Aquilino Garcia MD
--- NOTE | 2018-06-07 21:49 | CARD ---
APPROVED REPORT Date of service: 06/07/2018 EKG Measurement Heart [id number] <Conclusion> Sinus rhythm with premature atrial complexes Right bundle branch block Abnormal ECG
[2018-06-08 00:08] VITALS: BMI 18.7
--- NOTE | 2018-06-08 00:18 | CP.PCM.CON ---
History of Present Illness - History of Present Illness History of Present Illness: Infectious Disease Consultation: June 07, 2018 82 yo male seen in my office on afternoon of 06/07/2018 for follow up on the wounds and management of antibiotics while patient is receiving care and antibiotics at [facility] at [place]. The patient with wound cultures that grew Serratia, Proteus, and MRSA from cultures from March to 2017. Treatment with Home IV of Ceftriaxone and Vancomycin IV but unfortunately, the patient developed renal insufficiency and did not recover renal function to this point in time. The patient had laboratories done at [facility] facility the morning of 06/07/2018. Hgb was down to 6.5. Creatinine up to 7.9. For the past month, the patient's Hgb was between 7 and 8.5 as per daughter. The patient was on Teflaro for antibiotic treatment due to the renal issues. He was discharged from [facility] [place] on 05/13/2018 with Teflaro to [facility] in [place]. The right leg wound is still a stage II-III ulceration with granualation tissue and mild serosaguinous drainage. No pus. This ulceration has been very slow to heal. PMHx: HTN, COPD, Gastritis, DVT, renal insufficiency PSHx: debridement of the right lower leg. Followed in the wound care clinic at [facility] [place] Allergies: NKDA Social Hx: No tobacco, EtOH, or illicit drug use. Active Medications Amlodipine Besylate (Norvasc) 10 mg PO DAILY [facility] Atorvastatin Calcium (Lipitor) 10 mg PO DIN [facility] Calcium Acetate (Phoslo) 667 mg PO WM [facility] Ceftaroline Fosamil 200 mg/ (Sodium Chloride) 50 mls @ 50 mls/hr IVPB 0600,1800 [facility] Stop: 06/08/18 06:59 Pantoprazole Sodium (Protonix Ec Tab) 40 mg PO 0600 [facility] Sodium Bicarbonate (Sodium Bicarbonate Tab) 650 mg PO BID [facility] Last Admin: 06/07/18 20:55 Dose: 650 mg Tamsulosin HCl (Flomax) 0.4 mg PO DAILY [facility] Thiamine HCl (Vitamin B1 Tab) 100 mg PO DAILY [facility] Warfarin Sodium (Coumadin) 5 mg PO DAILY [facility]; Protocol Family Hx: none given ROS: No fevers, chills, nausea, vomiting, diarrhea, headaches, dizziness, chest pain, abdominal pain, melena, hematuria, hematemesis, hematochezia, depression, anxiety, vision loss, hearing loss, loss of consciousness. Past Patient History - Infectious Disease Hx of Infectious Diseases: None - Tetanus Immunizations Tetanus Immunization: Unknown - Past Social History Smoking Status: Never Smoked - CARDIAC Hx Congestive Heart Failure: Yes Hx Hypercholesterolemia: Yes Hx Hypertension: Yes Hx Peripheral Vascular Disease: Yes - PULMONARY Hx Chronic Obstructive Pulmonary Disease (COPD): Yes - NEUROLOGICAL Hx Neurological Disorder: No - HEENT Hx Cataracts: Yes - RENAL Hx Renal Failure: Yes - ENDOCRINE/METABOLIC Hx Endocrine Disorders: No - HEMATOLOGICAL/ONCOLOGICAL Hx Anemia: Yes - INTEGUMENTARY Hx Dermatological Problems: Yes Hx Cellulitis: Yes - MUSCULOSKELETAL/RHEUMATOLOGICAL Hx Arthritis: Yes Hx Unsteady Gait: Yes (cane) - GASTROINTESTINAL Hx Gastroesophageal Reflux: Yes - GENITOURINARY/GYNECOLOGICAL Hx Prostate Problems: Yes (scraping) - PSYCHIATRIC Hx Anxiety: Yes Hx Depression: Yes - SURGICAL HISTORY Other/Comment: s/p skin graft to RT lower extremity - ANESTHESIA Hx Anesthesia Reactions: No Hx Malignant Hyperthermia: No Meds Allergies/Adverse Reactions: Allergies Allergy/AdvReac Type Severity Reaction Status Date / Time No Known Allergies Allergy Verified 04/08/18 10:56 - Medications Medications: Current Medications Amlodipine Besylate (Norvasc) 10 mg PO DAILY [facility] Atorvastatin Calcium (Lipitor) 10 mg PO DIN [facility] Calcium Acetate (Phoslo) 667 mg PO WM [facility] Ceftaroline Fosamil 200 mg/ (Sodium Chloride) 50 mls @ 50 mls/hr IVPB 0600,1800 [facility] Stop: 06/08/18 06:59 Pantoprazole Sodium (Protonix Ec Tab) 40 mg PO 0600 [facility] Sodium Bicarbonate (Sodium Bicarbonate Tab) 650 mg PO BID [facility] Last Admin: 06/07/18 20:55 Dose: 650 mg Tamsulosin HCl (Flomax) 0.4 mg PO DAILY [facility] Thiamine HCl (Vitamin B1 Tab) 100 mg PO DAILY [facility] Warfarin Sodium (Coumadin) 5 mg PO DAILY [facility]; Protocol Physical Exam - Constitutional Appears: Non-toxic, No Acute Distress, Chronically Ill Additional comments: thin - Head Exam Head Exam: ATRAUMATIC, NORMOCEPHALIC - Eye Exam Eye Exam: EOMI Pupil Exam: NORMAL ACCOMODATION, PERRL - ENT Exam ENT Exam: Mucous Membranes Moist, Normal External Ear Exam, TM's Normal Bilaterally - Neck Exam Neck exam: Positive for: Full Rom, Normal Inspection - Respiratory Exam Respiratory Exam: Decreased Breath Sounds, Rhonchi, Wheezes, Stridor, NORMAL BREATHING PATTERN. absent: Rales - Cardiovascular Exam Cardiovascular Exam: REGULAR RHYTHM, RRR, +S1, +S2 - GI/Abdominal Exam GI & Abdominal Exam: Normal Bowel Sounds, Soft. absent: Distended, Tenderness - Extremities Exam Extremities exam: Positive for: full ROM. Negative for: joint swelling, pedal edema Additional comments: right lower leg with stage II-III ulcerations that is mostly dry with mild serosaguinous drainage. - Neurological Exam Neurological exam: Alert, CN II-XII Intact, Oriented x3, Reflexes Normal - Psychiatric Exam Psychiatric exam: Normal Affect, Normal Mood - Skin Skin Exam: Erythema, Normal Color Additional comments: ulceration of the right lower leg with stage II to III ulcer with mild serosaguinous drainage. Walks with cane. Results - Vital Signs Recent Vital Signs: Last Vital Signs Temp 97.7 F 06/07/18 20:50 Pulse 90 06/07/18 20:50 Resp 18 06/07/18 20:50 BP 152/75 H 06/07/18 20:50 Pulse Ox 98 06/07/18 20:50 - Labs Result Diagrams: 06/07/18 18:45 06/07/18 18:45 Labs: Laboratory Results - last 24 hr 06/07/18 06/07/18 06/07/18 18:45 18:45 18:45 WBC 9.1 RBC 2.94 L Hgb 8.0 L Hct 26.7 L MCV 90.8 MCH 27.2 MCHC 30.0 L RDW 17.0 H Plt Count 127 MPV 9.9 Gran % 77.8 H Lymph % (Auto) 8.2 L [place] % (Auto) 10.6 H Eos % (Auto) 3.2 Baso % (Auto) 0.2 Gran # 7.06 H Lymph # (Auto) 0.7 L [place] # (Auto) 1.0 H Eos # (Auto) 0.3 Baso # (Auto) 0.02 PT 28.7 H INR 2.45 APTT 42.4 H Sodium 139 Potassium 4.4 Chloride 105 Carbon Dioxide 25 Anion Gap 13 BUN 57 H Creatinine 5.1 H Est GFR ( Amer) 13 Est GFR (Non-Af Amer) 11 Random Glucose 121 H Calcium 8.7 Total Bilirubin 0.3 AST 43 ALT 34 Alkaline Phosphatase 142 H D Total Protein 8.0 Albumin 3.8 Globulin 4.2 Albumin/Globulin Ratio 0.9 L Blood Type Antibody Screen Crossmatch BBK History Checked 06/07/18 18:45 WBC RBC Hgb Hct MCV MCH MCHC RDW Plt Count MPV Gran % Lymph % (Auto) [place] % (Auto) Eos % (Auto) Baso % (Auto) Gran # Lymph # (Auto) [place] # (Auto) Eos # (Auto) Baso # (Auto) PT INR APTT Sodium Potassium Chloride Carbon Dioxide Anion Gap BUN Creatinine Est GFR ( Amer) Est GFR (Non-Af Amer) Random Glucose Calcium Total Bilirubin AST ALT Alkaline Phosphatase Total Protein Albumin Globulin Albumin/Globulin Ratio Blood Type A POSITIVE Antibody Screen Negative Crossmatch See Detail BBK History Checked Patient has bt Assessment & Plan - Assessment and Plan (Free Text) Assessment: 82 yo [place] male seen in my office for follow up for management of Teflaro for the patient wounds in the right lower leg. The patient had mild serosaguinous drainage. [facility] [place] had drawn labs in the AM with results of Hgb of 6.5 and Creatinine of 7.9. Discussed these values with the patient and the patient's daughter. They were amendable to admission to [facility] [place]. Discussed case with Dr. Garcia. Restarting Teflaro as the patient has completed over 4.5 weeks of treatment out of 6 weeks. CBC repeated here showing a value of 8.0. Discussed renal function with the patient and his daughter in my office, They may be amendable for kidney biopsy now. Monitoring Hgb. Supportive care. Thank you for allowing me to participate in the care of this patient, we will follow with you.
[2018-06-08] MEDS: Pantoprazole 40 mg EC Tab PO SCH (05:30)
[2018-06-08] MEDS ORDERED: NS IVPB SCH (06:00)
[2018-06-08] MEDS ORDERED: CEFTAROLINE IVPB SCH (06:00)
[2018-06-08] MEDS ORDERED: Ceftaroline 400 mg Inj IVPB SCH (06:00)
[2018-06-08 06:42] LABS: INR 2.62; PROTHROMBIN TIME 30.7 SECONDS (9.4-12.5)
[2018-06-08 07:03] LABS: BASO # 0.02 K/mm3 (0.0-2.0); BASO % 0.3 % (0.0-3.0); EOS # 0.2 (0.0-0.7); GRAN # 6.02 (1.4-6.5); GRAN % 75.4 % (50.0-68.0); LYMPH % 12.3 % (22.0-35.0); MEAN CELL VOLUME 89.8 fl (80.0-105.0); MEAN CORPUSCULAR HEMOGLOBIN 27.6 pg (25.0-35.0); MEAN CORPUSCULAR HGB CONC 30.7 g/dl (31.0-37.0); MEAN PLATELET VOLUME 9.6 fl (7.0-11.0); MONO # 0.7 (0.1-0.6); RBC 2.54 10^6/uL (3.5-6.1); RED CELL DISTRIBUTION WIDTH 17.1 % (11.5-14.5)
[2018-06-08 07:23] LABS: ALB/GLOB RATIO 0.8 (1.1-1.8); CALCIUM 8.1 mg/dL (8.4-10.5)
[2018-06-08] MEDS ORDERED: Ergocalciferol 50,000 Intl Units Cap PO SCH (09:45)
[2018-06-08] MEDS ORDERED: Darbepoetin Alfa 100 mcg/ml Inj SC SCH (10:00)
--- NOTE | 2018-06-08 11:13 | CP.PCM.CON ---
History of Present Illness - History of Present Illness History of Present Illness: Nephrology Consultation Note: Assessment: stable acute on chronic anemia likely multifactorial Recent acute Kidney Injury (N17.9) possibly AIN due to abx as also with peripheral eosinophilia and/or vancomycin nephrotoxicity. 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 Pt and daughter had refused for dialysis/kidney biopsy during last admission Hypertension control with meds as ordered. Maintain hemodynamics stable. Avoid hypotension. Patient not on ACEI/ARB due to recent HARSH. Monitor Input/Output, daily weights and renal function with basic metabolic panel continue with weekly Vit D, iron, MVI, phos binders and sodium bicarb. Added Aransep 100 mcg weekly getting blood transfusion on PPI and thiamine as well on flomax as PVR 168 mL Increase lasix 40 mg orally twice daily. had recent heme eval for anemia and paraproteinemia Dose meds/antibiotics for reduced GFR. Avoid fleets enema/magnesium based laxatives. Avoid nephrotoxins/NSAIDs/ iodinated contrast (unless needed emergently) Glycemic control Further work up/management as per primary team pt stable for d/c from renal perspective when planned, with 1 week outpt renal follow up Thanks for allowing me to participate in care of your patient. Will follow patient with you. Please call if any Qs. had d/w team Dr Froilan Spears Office: [phone] CC; Anemia Reason for consult: Acute Kidney Injury and kidney disease HPI: Pt is a 82 M with hx of HTN, COPD, DVT on coumadin, etoh/smoker (quit 6 months ago), anemia, CKD 3 with baseline cr 1.4-1.5 with superimpsed AHRSH with cr up to 6 range recently (pt and daughter refused for kidney biopsy and dialysis) presented with complaints of SOB on exertion, anemia abnormal kidney fxn Denies OTC/herbal meds or NSAIDs No recent iodinated contrast exposure. No obvious episodes of low BP. c/o rt leg swelling ROS: Cardiovascular: No chest pain. Pulmonary: No shortness of breath now but has it on exertion Gastrointestinal: denies abdominal pain No nausea. No vomiting. says stool color as brown Genitourinary: No pain while urinating. Denies blood in urine. All other negative except as mentioned in HPI Physical Examination: General Appearance: Comfortable, in no acute respiratory distress, co-operative. somewhat cachexic Vitals reviewed and noted as below Head; Atraumatic, normocephalic ENT: no ulcers no thrush. Tongue is midline. Oropharynx: no rash or ulcers. EYES: Pupils are equal, round and reactive to light accommodation. Eye muscles and extraocular movement intact. Sclera is anicteric. Neck; supple no lymphadenopathy, no thyromegaly or bruit Lungs: Normal respiratory rate/effort. Breath sounds bilateral with occasional basal crackles Heart: Normal rate. s1s2 normal. No rub or gallop. Extremities: 1+ edema (R>>L) RLE swelling, dressing + Neurological: Patient is alert, awake and oriented to person, place and time. No focal deficit. Strength bilateral appropriate and equal Skin: Warm and dry. Normal turgor. No rash. Palpitation: Normal elasticity for age Abdomen: Abdomen is soft. Bowel sounds +. There is no abdominal tenderness, no guarding/rigidity ? hepatomegaly Psych: lack insight and normal affect/mood MSK: no joint tenderness or swelling. Digits and nails normal, no deformity : kidney not palpable Labs/imaging reviewed. Past medical history, past surgical history, family history, social history, allergy reviewed and noted as below Family hx: no hx of CKD. Rest non-contributory Vit D <12.8 PTh 45 TSAt 55% Ferritin 78 FOB + SPEP + but k/l ration 2.1 urine alb/cr 44 mg/g Past Patient History - Infectious Disease Hx of Infectious Diseases: None - Tetanus Immunizations Tetanus Immunization: Unknown - Past Social History Smoking Status: Never Smoked - CARDIAC Hx Congestive Heart Failure: Yes Hx Hypercholesterolemia: Yes Hx Hypertension: Yes Hx Peripheral Vascular Disease: Yes - PULMONARY Hx Chronic Obstructive Pulmonary Disease (COPD): Yes - NEUROLOGICAL Hx Neurological Disorder: No - HEENT Hx Cataracts: Yes - RENAL Hx Renal Failure: Yes - ENDOCRINE/METABOLIC Hx Endocrine Disorders: No - HEMATOLOGICAL/ONCOLOGICAL Hx Anemia: Yes - INTEGUMENTARY Hx Dermatological Problems: Yes Hx Cellulitis: Yes - MUSCULOSKELETAL/RHEUMATOLOGICAL Hx Arthritis: Yes Hx Unsteady Gait: Yes (cane) - GASTROINTESTINAL Hx Gastroesophageal Reflux: Yes - GENITOURINARY/GYNECOLOGICAL Hx Prostate Problems: Yes (scraping) - PSYCHIATRIC Hx Anxiety: Yes Hx Depression: Yes - SURGICAL HISTORY Other/Comment: s/p skin graft to RT lower extremity - ANESTHESIA Hx Anesthesia Reactions: No Hx Malignant Hyperthermia: No Meds Allergies/Adverse Reactions: Allergies Allergy/AdvReac Type Severity Reaction Status Date / Time No Known Allergies Allergy Verified 04/08/18 10:56 - Medications Medications: Current Medications Amlodipine Besylate (Norvasc) 10 mg PO DAILY [facility] Last Admin: 06/08/18 09:28 Dose: 10 mg Atorvastatin Calcium (Lipitor) 10 mg PO DIN [facility] Calcium Acetate (Phoslo) 667 mg PO WM [facility] Last Admin: 06/08/18 08:25 Dose: 667 mg Darbepoetin José Miguel (Aranesp) 100 mcg SC QWK [facility] Ergocalciferol (Drisdol 50,000 Intl Units Cap) 1 cap PO Q7D [facility] Ferrous Gluconate (Fergon) 324 mg PO TID [facility] Furosemide (Lasix) 40 mg IVP ONCE ONE Stop: 06/08/18 14:31 Furosemide (Lasix) 40 mg PO BID [facility] Ceftaroline Fosamil 200 mg/ (Sodium Chloride) 50 mls @ 50 mls/hr IVPB Q12H [facility]; Protocol Stop: 06/16/18 05:19 Last Admin: 06/08/18 05:30 Dose: 50 mls/hr Pantoprazole Sodium (Protonix Ec Tab) 40 mg PO 0600 [facility] Last Admin: 06/08/18 05:30 Dose: 40 mg Sodium Bicarbonate (Sodium Bicarbonate Tab) 650 mg PO BID [facility] Last Admin: 06/08/18 09:28 Dose: 650 mg Tamsulosin HCl (Flomax) 0.4 mg PO DAILY [facility] Last Admin: 06/08/18 09:28 Dose: 0.4 mg Thiamine HCl (Vitamin B1 Tab) 100 mg PO DAILY [facility] Last Admin: 06/08/18 09:28 Dose: 100 mg Vitamin B Complex/Vit C/Folic Acid (Nephro-Rober) 1 tab PO 0800 [facility] Warfarin Sodium (Coumadin) 5 mg PO DAILY [facility]; Protocol Last Admin: 06/08/18 09:28 Dose: 5 mg Results - Vital Signs Recent Vital Signs: Last Vital Signs Temp 97.3 F L 06/08/18 10:37 Pulse 79 06/08/18 10:37 Resp 16 06/08/18 10:37 BP 141/73 06/08/18 10:37 Pulse Ox 99 06/08/18 06:31 - Labs Result Diagrams: 06/08/18 06:00 06/08/18 06:00 Labs: Laboratory Results - last 24 hr 06/07/18 06/07/18 06/07/18 18:45 18:45 18:45 WBC 9.1 RBC 2.94 L Hgb 8.0 L Hct 26.7 L MCV 90.8 MCH 27.2 MCHC 30.0 L RDW 17.0 H Plt Count 127 MPV 9.9 Gran % 77.8 H Lymph % (Auto) 8.2 L [place] % (Auto) 10.6 H Eos % (Auto) 3.2 Baso % (Auto) 0.2 Gran # 7.06 H Lymph # (Auto) 0.7 L [place] # (Auto) 1.0 H Eos # (Auto) 0.3 Baso # (Auto) 0.02 PT 28.7 H INR 2.45 APTT 42.4 H Sodium 139 Potassium 4.4 Chloride 105 Carbon Dioxide 25 Anion Gap 13 BUN 57 H Creatinine 5.1 H Est GFR ( Amer) 13 Est GFR (Non-Af Amer) 11 Random Glucose 121 H Calcium 8.7 Total Bilirubin 0.3 AST 43 ALT 34 Alkaline Phosphatase 142 H D Total Protein 8.0 Albumin 3.8 Globulin 4.2 Albumin/Globulin Ratio 0.9 L Blood Type Antibody Screen Crossmatch BBK History Checked 06/07/18 06/08/18 06/08/18 18:45 06:00 06:00 WBC 8.0 RBC 2.54 L Hgb 7.0 L Hct 22.8 L MCV 89.8 MCH 27.6 MCHC 30.7 L RDW 17.1 H Plt Count 112 L MPV 9.6 Gran % 75.4 H Lymph % (Auto) 12.3 L [place] % (Auto) 9.0 H Eos % (Auto) 3.0 Baso % (Auto) 0.3 Gran # 6.02 Lymph # (Auto) 1.0 L [place] # (Auto) 0.7 H Eos # (Auto) 0.2 Baso # (Auto) 0.02 PT 30.7 H INR 2.62 APTT Sodium Potassium Chloride Carbon Dioxide Anion Gap BUN Creatinine Est GFR ( Amer) Est GFR (Non-Af Amer) Random Glucose Calcium Total Bilirubin AST ALT Alkaline Phosphatase Total Protein Albumin Globulin Albumin/Globulin Ratio Blood Type A POSITIVE Antibody Screen Negative Crossmatch See Detail BBK History Checked Patient has bt 06/08/18 06:00 WBC RBC Hgb Hct MCV MCH MCHC RDW Plt Count MPV Gran % Lymph % (Auto) [place] % (Auto) Eos % (Auto) Baso % (Auto) Gran # Lymph # (Auto) [place] # (Auto) Eos # (Auto) Baso # (Auto) PT INR APTT Sodium 138 Potassium 4.1 Chloride 106 Carbon Dioxide 26 Anion Gap 10 BUN 52 H Creatinine 4.8 H Est GFR ( Amer) 14 Est GFR (Non-Af Amer) 12 Random Glucose 135 H Calcium 8.1 L Total Bilirubin 0.2 AST 33 ALT 27 Alkaline Phosphatase 115 Total Protein 6.6 Albumin 3.0 Globulin 3.6 Albumin/Globulin Ratio 0.8 L Blood Type Antibody Screen Crossmatch BBK History Checked
--- NOTE | 2018-06-08 13:12 | CP.PCM.PCO ---
Physician Communication Note - Physician Communication Note Physician Communication Note: 2UPRBC's, Echo, podiatry pending [place]ef[place]o [place]
--- NOTE | 2018-06-08 13:18 | CP.PCM.CON ---
<Myrna Iglesias - Last Filed: 06/08/18 15:22> History of Present Illness - History of Present Illness History of Present Illness: Podiatry consult note for Dr. Pham 82 yo male with pmhx of hypertension, COPD, gastritis and history of DVT presented to the ED yesterday for anemia and renal failure. Patient has a wound on the lateral aspect of the leg that has been present for about [address] [facility] that he had had surgery with Dr. Pham and his wound was debrided and cultured. Denies N/V/F/C/SOB/CP today and has no other pedal complaints today. Admits to mild pain in the area of the ulcer. PMHx - hypertension, COPD, gastritis and history of DVT PSHx - right lower leg surgical wound debridement All - NKDA Past Patient History - Infectious Disease Hx of Infectious Diseases: None - Tetanus Immunizations Tetanus Immunization: Unknown - Past Social History Smoking Status: Never Smoked - CARDIAC Hx Congestive Heart Failure: Yes Hx Hypercholesterolemia: Yes Hx Hypertension: Yes Hx Peripheral Vascular Disease: Yes - PULMONARY Hx Chronic Obstructive Pulmonary Disease (COPD): Yes - NEUROLOGICAL Hx Neurological Disorder: No - HEENT Hx Cataracts: Yes - RENAL Hx Renal Failure: Yes - ENDOCRINE/METABOLIC Hx Endocrine Disorders: No - HEMATOLOGICAL/ONCOLOGICAL Hx Anemia: Yes - INTEGUMENTARY Hx Dermatological Problems: Yes Hx Cellulitis: Yes - MUSCULOSKELETAL/RHEUMATOLOGICAL Hx Arthritis: Yes Hx Unsteady Gait: Yes (cane) - GASTROINTESTINAL Hx Gastroesophageal Reflux: Yes - GENITOURINARY/GYNECOLOGICAL Hx Prostate Problems: Yes (scraping) - PSYCHIATRIC Hx Anxiety: Yes Hx Depression: Yes - SURGICAL HISTORY Other/Comment: s/p skin graft to RT lower extremity - ANESTHESIA Hx Anesthesia Reactions: No Hx Malignant Hyperthermia: No Meds Allergies/Adverse Reactions: Allergies Allergy/AdvReac Type Severity Reaction Status Date / Time No Known Allergies Allergy Verified 04/08/18 10:56 - Medications Medications: Current Medications Amlodipine Besylate (Norvasc) 10 mg PO DAILY [facility] Last Admin: 06/08/18 09:28 Dose: 10 mg Atorvastatin Calcium (Lipitor) 10 mg PO DIN [facility] Calcium Acetate (Phoslo) 667 mg PO WM [facility] Last Admin: 06/08/18 11:59 Dose: 667 mg Darbepoetin José Miguel (Aranesp) 100 mcg SC QWK [facility] Last Admin: 06/08/18 12:09 Dose: 100 mcg Ergocalciferol (Drisdol 50,000 Intl Units Cap) 1 cap PO Q7D [facility] Last Admin: 06/08/18 11:59 Dose: 1 cap Ferrous Gluconate (Fergon) 324 mg PO TID [facility] Last Admin: 06/08/18 11:59 Dose: 324 mg Furosemide (Lasix) 40 mg IVP ONCE ONE Stop: 06/08/18 14:31 Furosemide (Lasix) 40 mg PO BID [facility] Ceftaroline Fosamil 200 mg/ (Sodium Chloride) 50 mls @ 50 mls/hr IVPB Q12H [facility]; Protocol Stop: 06/16/18 05:19 Last Admin: 06/08/18 05:30 Dose: 50 mls/hr Pantoprazole Sodium (Protonix Ec Tab) 40 mg PO 0600 [facility] Last Admin: 06/08/18 05:30 Dose: 40 mg Sodium Bicarbonate (Sodium Bicarbonate Tab) 650 mg PO BID [facility] Last Admin: 06/08/18 09:28 Dose: 650 mg Tamsulosin HCl (Flomax) 0.4 mg PO DAILY [facility] Last Admin: 06/08/18 09:28 Dose: 0.4 mg Thiamine HCl (Vitamin B1 Tab) 100 mg PO DAILY [facility] Last Admin: 06/08/18 09:28 Dose: 100 mg Vitamin B Complex/Vit C/Folic Acid (Nephro-Rober) 1 tab PO 0800 [facility] Warfarin Sodium (Coumadin) 5 mg PO DAILY [facility]; Protocol Last Admin: 06/08/18 09:28 Dose: 5 mg Physical Exam - Constitutional Appears: Well, Non-toxic, No Acute Distress - Head Exam Head Exam: ATRAUMATIC, NORMOCEPHALIC - Eye Exam Eye Exam: Normal appearance Pupil Exam: NORMAL ACCOMODATION - ENT Exam ENT Exam: Mucous Membranes Moist - Extremities Exam Additional comments: RLE focused exam Vasc: DP/PT 2/4. Skin temperature warm to warm from proximal to distal WNL. Cap refill < 3 seconds to all digits. No edema noted to right leg at this time Neuro: Epicritic and protective sensation grossly intact b/l Derm: Ulcer noted on the right lateral aspect of the leg with 100% granular base. No pus, no purulent discharge or drainage, no clinical signs of infection. minimal periwound erythema. MSK: Minimal POP at the periwound site. ROM WNL at all major joints. Muscle power intact 5/5 in all major muscle groups. No other gross deformities noted Results - Vital Signs Recent Vital Signs: Last Vital Signs Temp 97.5 F L 06/08/18 11:22 Pulse 74 06/08/18 11:22 Resp 18 06/08/18 11:22 BP 128/77 06/08/18 11:22 Pulse Ox 99 06/08/18 06:31 - Labs Result Diagrams: 06/08/18 06:00 06/08/18 06:00 Labs: Laboratory Results - last 24 hr 06/07/18 06/07/18 06/07/18 18:45 18:45 18:45 WBC 9.1 RBC 2.94 L Hgb 8.0 L Hct 26.7 L MCV 90.8 MCH 27.2 MCHC 30.0 L RDW 17.0 H Plt Count 127 MPV 9.9 Gran % 77.8 H Lymph % (Auto) 8.2 L Ector % (Auto) 10.6 H Eos % (Auto) 3.2 Baso % (Auto) 0.2 Gran # 7.06 H Lymph # (Auto) 0.7 L Ector # (Auto) 1.0 H Eos # (Auto) 0.3 Baso # (Auto) 0.02 PT 28.7 H INR 2.45 APTT 42.4 H Sodium 139 Potassium 4.4 Chloride 105 Carbon Dioxide 25 Anion Gap 13 BUN 57 H Creatinine 5.1 H Est GFR ( Amer) 13 Est GFR (Non-Af Amer) 11 Random Glucose 121 H Calcium 8.7 Total Bilirubin 0.3 AST 43 ALT 34 Alkaline Phosphatase 142 H D Total Protein 8.0 Albumin 3.8 Globulin 4.2 Albumin/Globulin Ratio 0.9 L Blood Type Antibody Screen Crossmatch BBK History Checked 06/07/18 06/08/18 06/08/18 18:45 06:00 06:00 WBC 8.0 RBC 2.54 L Hgb 7.0 L Hct 22.8 L MCV 89.8 MCH 27.6 MCHC 30.7 L RDW 17.1 H Plt Count 112 L MPV 9.6 Gran % 75.4 H Lymph % (Auto) 12.3 L Ector % (Auto) 9.0 H Eos % (Auto) 3.0 Baso % (Auto) 0.3 Gran # 6.02 Lymph # (Auto) 1.0 L Ector # (Auto) 0.7 H Eos # (Auto) 0.2 Baso # (Auto) 0.02 PT 30.7 H INR 2.62 APTT Sodium Potassium Chloride Carbon Dioxide Anion Gap BUN Creatinine Est GFR ( Amer) Est GFR (Non-Af Amer) Random Glucose Calcium Total Bilirubin AST ALT Alkaline Phosphatase Total Protein Albumin Globulin Albumin/Globulin Ratio Blood Type A POSITIVE Antibody Screen Negative Crossmatch See Detail BBK History Checked Patient has bt 06/08/18 06:00 WBC RBC Hgb Hct MCV MCH MCHC RDW Plt Count MPV Gran % Lymph % (Auto) Ector % (Auto) Eos % (Auto) Baso % (Auto) Gran # Lymph # (Auto) Ector # (Auto) Eos # (Auto) Baso # (Auto) PT INR APTT Sodium 138 Potassium 4.1 Chloride 106 Carbon Dioxide 26 Anion Gap 10 BUN 52 H Creatinine 4.8 H Est GFR ( Amer) 14 Est GFR (Non-Af Amer) 12 Random Glucose 135 H Calcium 8.1 L Total Bilirubin 0.2 AST 33 ALT 27 Alkaline Phosphatase 115 Total Protein 6.6 Albumin 3.0 Globulin 3.6 Albumin/Globulin Ratio 0.8 L Blood Type Antibody Screen Crossmatch BBK History Checked Assessment & Plan - Assessment and Plan (Free Text) Assessment: 82M with pmhx of hypertension, COPD, gastritis and history of DVT evaluated for right lower leg wound Plan: Patient seen and evaluated at bedside with Dr. Pham Afebrile, absent leukocytosis Dressing taken down, wound cleansed sterile saline, dressed with adaptic maxorb and DSD Wound cx taken - f/u results Continue management per medicine Will continue to follow the patient while in house Thank you for the consult <Van Pham - Last Filed: 06/08/18 16:00> Meds - Medications Medications: Current Medications Amlodipine Besylate (Norvasc) 10 mg PO DAILY [facility] Last Admin: 06/08/18 09:28 Dose: 10 mg Atorvastatin Calcium (Lipitor) 10 mg PO DIN [facility] Calcium Acetate (Phoslo) 667 mg PO WM [facility] Last Admin: 06/08/18 11:59 Dose: 667 mg Darbepoetin José Miguel (Aranesp) 100 mcg SC QWK [facility] Last Admin: 06/08/18 12:09 Dose: 100 mcg Ergocalciferol (Drisdol 50,000 Intl Units Cap) 1 cap PO Q7D [facility] Last Admin: 06/08/18 11:59 Dose: 1 cap Ferrous Gluconate (Fergon) 324 mg PO TID [facility] Last Admin: 06/08/18 11:59 Dose: 324 mg Furosemide (Lasix) 40 mg PO BID [facility] Ceftaroline Fosamil 200 mg/ (Sodium Chloride) 50 mls @ 50 mls/hr IVPB Q12H [facility]; Protocol Stop: 06/16/18 05:19 Last Admin: 06/08/18 05:30 Dose: 50 mls/hr Pantoprazole Sodium (Protonix Ec Tab) 40 mg PO 0600 [facility] Last Admin: 06/08/18 05:30 Dose: 40 mg Sodium Bicarbonate (Sodium Bicarbonate Tab) 650 mg PO BID [facility] Last Admin: 06/08/18 09:28 Dose: 650 mg Tamsulosin HCl (Flomax) 0.4 mg PO DAILY [facility] Last Admin: 06/08/18 09:28 Dose: 0.4 mg Thiamine HCl (Vitamin B1 Tab) 100 mg PO DAILY [facility] Last Admin: 06/08/18 09:28 Dose: 100 mg Vitamin B Complex/Vit C/Folic Acid (Nephro-Rober) 1 tab PO 0800 [facility] Warfarin Sodium (Coumadin) 5 mg PO DAILY [facility]; Protocol Last Admin: 06/08/18 09:28 Dose: 5 mg Results - Vital Signs Recent Vital Signs: Last Vital Signs Temp 97.2 F L 06/08/18 15:59 Pulse 81 06/08/18 15:59 Resp 16 06/08/18 15:59 BP 132/70 06/08/18 15:59 Pulse Ox 99 06/08/18 06:31 - Labs Result Diagrams: 06/08/18 06:00 06/08/18 06:00 Labs: Laboratory Results - last 24 hr 06/07/18 06/07/18 06/07/18 18:45 18:45 18:45 WBC 9.1 RBC 2.94 L Hgb 8.0 L Hct 26.7 L MCV 90.8 MCH 27.2 MCHC 30.0 L RDW 17.0 H Plt Count 127 MPV 9.9 Gran % 77.8 H Lymph % (Auto) 8.2 L Ector % (Auto) 10.6 H Eos % (Auto) 3.2 Baso % (Auto) 0.2 Gran # 7.06 H Lymph # (Auto) 0.7 L Ector # (Auto) 1.0 H Eos # (Auto) 0.3 Baso # (Auto) 0.02 PT 28.7 H INR 2.45 APTT 42.4 H Sodium 139 Potassium 4.4 Chloride 105 Carbon Dioxide 25 Anion Gap 13 BUN 57 H Creatinine 5.1 H Est GFR ( Amer) 13 Est GFR (Non-Af Amer) 11 Random Glucose 121 H Calcium 8.7 Total Bilirubin 0.3 AST 43 ALT 34 Alkaline Phosphatase 142 H D Total Protein 8.0 Albumin 3.8 Globulin 4.2 Albumin/Globulin Ratio 0.9 L Blood Type Antibody Screen Crossmatch BBK History Checked 06/07/18 06/08/18 06/08/18 18:45 06:00 06:00 WBC 8.0 RBC 2.54 L Hgb 7.0 L Hct 22.8 L MCV 89.8 MCH 27.6 MCHC 30.7 L RDW 17.1 H Plt Count 112 L MPV 9.6 Gran % 75.4 H Lymph % (Auto) 12.3 L Ector % (Auto) 9.0 H Eos % (Auto) 3.0 Baso % (Auto) 0.3 Gran # 6.02 Lymph # (Auto) 1.0 L Ector # (Auto) 0.7 H Eos # (Auto) 0.2 Baso # (Auto) 0.02 PT 30.7 H INR 2.62 APTT Sodium Potassium Chloride Carbon Dioxide Anion Gap BUN Creatinine Est GFR ( Amer) Est GFR (Non-Af Amer) Random Glucose Calcium Total Bilirubin AST ALT Alkaline Phosphatase Total Protein Albumin Globulin Albumin/Globulin Ratio Blood Type A POSITIVE Antibody Screen Negative Crossmatch See Detail BBK History Checked Patient has bt 06/08/18 06:00 WBC RBC Hgb Hct MCV MCH MCHC RDW Plt Count MPV Gran % Lymph % (Auto) Ector % (Auto) Eos % (Auto) Baso % (Auto) Gran # Lymph # (Auto) Ector # (Auto) Eos # (Auto) Baso # (Auto) PT INR APTT Sodium 138 Potassium 4.1 Chloride 106 Carbon Dioxide 26 Anion Gap 10 BUN 52 H Creatinine 4.8 H Est GFR ( Amer) 14 Est GFR (Non-Af Amer) 12 Random Glucose 135 H Calcium 8.1 L Total Bilirubin 0.2 AST 33 ALT 27 Alkaline Phosphatase 115 Total Protein 6.6 Albumin 3.0 Globulin 3.6 Albumin/Globulin Ratio 0.8 L Blood Type Antibody Screen Crossmatch BBK History Checked Attending/Attestation - Attestation I have personally seen and examined this patient.: Yes I have fully participated in the care of the patient.: Yes I have reviewed all pertinent clinical information: Yes
--- NOTE | 2018-06-08 13:32 | RAD ---
Date of service: 06/08/2018 HISTORY: Cough COMPARISON: 05/03/2018. TECHNIQUE: Chest PA and lateral FINDINGS: LINES AND TUBES: None. LUNG AND PLEURA: The lungs are well inflated. There is severe pulmonary venous congestion. There are small pleural effusion or pneumothorax. HEART AND MEDIASTINUM: There is mild cardiomegaly. There are aortic atherosclerotic calcifications present. The hilar and mediastinal contours are within normal limits. SKELETAL STRUCTURES: The bony structures are within normal limits for the patient's age. VISUALIZED UPPER ABDOMEN: Normal. OTHER FINDINGS: None. IMPRESSION: Constellation of findings are most compatible with congestive heart failure
--- NOTE | 2018-06-08 18:42 | CP.PCM.PN ---
Subjective - Date & Time of Evaluation Date of Evaluation: 06/08/18 Time of Evaluation: 18:00 - Subjective Subjective: Infectious Disease Follow Up: June 08, 2018 82 yo male seen in my office on afternoon of 06/07/2018 for follow up on the wounds and management of antibiotics while patient is receiving care and antibiotics at [facility] at [place]. The patient with wound cultures that grew Serratia, Proteus, and MRSA from cultures from March to 2017. Treatment with Home IV of Ceftriaxone and Vancomycin IV but unfortunately, the patient developed renal insufficiency and did not recover renal function to this point in time. The patient had laboratories done at [facility] facility the morning of 06/07/2018. Hgb was down to 6.5. Creatinine up to 7.9. For the past month, the patient's Hgb was between 7 and 8.5 as per daughter. The patient was on Teflaro for antibiotic treatment due to the renal issues. He was discharged from [facility] on 05/13/2018 with Teflaro to [facility] in [place]. The right leg wound is still a stage II-III ulceration with granualation tissue and mild serosaguinous drainage. No pus. This ulceration has been very slow to heal. Creatinine is 4.8 and Hgb 7.0. It appears that 1U of PRBCs were given already. Another 1U of PRBCs in progress. Objective - Vital Signs/Intake and Output Vital Signs (last 24 hours): Temp Pulse Resp BP Pulse Ox 97.8 F 80 14 148/79 99 06/08/18 17:00 06/08/18 18:00 06/08/18 17:00 06/08/18 17:00 06/08/18 06:31 Intake and Output: 06/08/18 06/08/18 06:59 18:59 Intake Total 360 350 Output Total 300 Balance 60 350 - Medications Medications: Current Medications Amlodipine Besylate (Norvasc) 10 mg PO DAILY [facility] Last Admin: 06/08/18 09:28 Dose: 10 mg Atorvastatin Calcium (Lipitor) 10 mg PO DIN [facility] Last Admin: 06/08/18 17:03 Dose: 10 mg Calcium Acetate (Phoslo) 667 mg PO WM [facility] Last Admin: 06/08/18 17:03 Dose: 667 mg Darbepoetin José Miguel (Aranesp) 100 mcg SC QWK [facility] Last Admin: 06/08/18 12:09 Dose: 100 mcg Ergocalciferol (Drisdol 50,000 Intl Units Cap) 1 cap PO Q7D [facility] Last Admin: 06/08/18 11:59 Dose: 1 cap Ferrous Gluconate (Fergon) 324 mg PO TID [facility] Last Admin: 06/08/18 17:03 Dose: 324 mg Furosemide (Lasix) 40 mg PO BID [facility] Ceftaroline Fosamil 200 mg/ (Sodium Chloride) 50 mls @ 50 mls/hr IVPB Q12H [facility]; Protocol Stop: 06/16/18 05:19 Last Admin: 06/08/18 05:30 Dose: 50 mls/hr Pantoprazole Sodium (Protonix Ec Tab) 40 mg PO 0600 [facility] Last Admin: 06/08/18 05:30 Dose: 40 mg Sodium Bicarbonate (Sodium Bicarbonate Tab) 650 mg PO BID [facility] Last Admin: 06/08/18 17:05 Dose: 650 mg Tamsulosin HCl (Flomax) 0.4 mg PO DAILY [facility] Last Admin: 06/08/18 09:28 Dose: 0.4 mg Thiamine HCl (Vitamin B1 Tab) 100 mg PO DAILY [facility] Last Admin: 06/08/18 09:28 Dose: 100 mg Vitamin B Complex/Vit C/Folic Acid (Nephro-Rober) 1 tab PO 0800 [facility] Warfarin Sodium (Coumadin) 5 mg PO DAILY [facility]; Protocol Last Admin: 06/08/18 09:28 Dose: 5 mg - Labs Labs: 06/08/18 06:00 06/08/18 06:00 PT 30.7 SECONDS (9.4-12.5) H 06/08/18 06:00 INR 2.62 06/08/18 06:00 APTT 42.4 Seconds (25.1-36.5) H 06/07/18 18:45 - Constitutional Appears: Non-toxic, No Acute Distress, Chronically Ill - Head Exam Head Exam: ATRAUMATIC, NORMOCEPHALIC - Eye Exam Eye Exam: EOMI, PERRL Pupil Exam: NORMAL ACCOMODATION, PERRL - ENT Exam ENT Exam: Mucous Membranes Moist, Normal External Ear Exam, TM's Normal Bilaterally - Neck Exam Neck Exam: Full ROM, Normal Inspection - Respiratory Exam Respiratory Exam: Clear to Ausculation Bilateral, NORMAL BREATHING PATTERN. absent: Rales, Rhonchi, Wheezes - Cardiovascular Exam Cardiovascular Exam: REGULAR RHYTHM, RRR, +S1, +S2 - GI/Abdominal Exam GI & Abdominal Exam: Soft, Normal Bowel Sounds. absent: Distended, Tenderness - Extremities Exam Extremities Exam: Full ROM. absent: Joint Swelling, Pedal Edema Additional comments: right lower leg with stage II-III ulcerations that is mostly dry with mild serosaguinous drainage. - Neurological Exam Neurological Exam: Alert, Awake, CN II-XII Intact, Oriented x3 - Psychiatric Exam Psychiatric exam: Normal Affect, Normal Mood - Skin Skin Exam: Normal Color Additional comments: above. ulceration of the right lower leg with stage II to III ulcer with mild serosaguinous drainage. Walks with cane. Assessment and Plan - Assessment and Plan (Free Text) Assessment: 82 yo [place] male seen in my office for follow up for management of Teflaro for the patient wounds in the right lower leg. The patient had mild serosaguinous drainage. [facility] [place] had drawn labs in the AM with results of Hgb of 6.5 and Creatinine of 7.9. Discussed these values with the patient and the patient's daughter. They were amendable to admission to [facility]. Discussed case with Dr. Garcia. Restarting Teflaro as the patient has completed over 4.5 weeks of treatment out of 6 weeks. CBC at 7.0 this morning. Received 1U PRBCs yesterday. Receiving another 1U PRBCs now. Creatinine of 4.8. Discussed renal function with the patient and his daughter in my office, They may be amendable for kidney biopsy now. Monitoring Hgb. Supportive care. Thank you for allowing me to participate in the care of this patient, we will follow with you.
--- NOTE | 2018-06-08 20:27 | PN ---
DATE: 06/08/2018 SUBJECTIVE: The patient is 82-year-old, seen and examined, has shortness of breath, received 2 blood transfusions. Denies any fever, chills. No nausea, vomiting. No diarrhea. PHYSICAL EXAMINATION: VITAL SIGNS: The patient is afebrile, pulse 77, respirations 16, blood pressure 153/78. LUNGS: Bilateral few expiratory rhonchi. HEART: S1 and S2 audible. No murmur. ABDOMEN: Soft, nontender. No rebound. No guarding. NEUROLOGICAL: The patient is awake, alert, oriented, communicative. EXTREMITIES: Right terrazas has granulation tissue. No malodorous discharge. LABORATORY EXAMINATION: WBC 8.0, hemoglobin 7.0, hematocrit 22.8, platelets 112. PT 30.2, INR 2.62. Chemistry: Sodium 138, potassium 4.1, chloride 106, CO2 of 26, BUN 52, creatinine 4.8, blood sugar of 135. Stool for Hemoccult is positive. ASSESSMENT: 1. Symptomatic anemia. 2. Right terrazas chronic wound. 3. Hypertension. 4. History of right leg deep venous thrombosis. 5. Coagulopathy. 6. Chronic obstructive pulmonary disease. 7. Renal insufficiency. PLAN: The patient will be receiving Aranesp 100 mcg weekly. He received 2 blood transfusions. He will be given Lasix in-between. We will continue on Coumadin. Continue him on iron supplementation. Continue him on statin and amlodipine, and he is on Teflaro; we will continue that. We will reevaluate the patient in a.m. and make disposition plan. Aquilino Garcia MD
[2018-06-09] MEDS: Pantoprazole 40 mg EC Tab PO SCH (05:40)
--- NOTE | 2018-06-09 10:19 | CP.PCM.PN ---
Subjective - Date & Time of Evaluation Date of Evaluation: 06/09/18 Time of Evaluation: 10:16 - Subjective Subjective: Podiatry progress note for Dr. Pahm 82 yo male with pmhx of hypertension, COPD, gastritis and history of DVT presented to the ED yesterday for anemia and renal failure. Patient has a wound on the lateral aspect of the leg that has been present for about 4 months. Denies acute overnight events. Denies f/n/v/sob. Objective - Vital Signs/Intake and Output Vital Signs (last 24 hours): Temp Pulse Resp BP Pulse Ox 97.9 F 78 19 155/80 H 96 06/09/18 06:00 06/09/18 06:00 06/09/18 06:00 06/09/18 06:00 06/09/18 00:01 Intake and Output: 06/09/18 06/09/18 06:59 18:59 Intake Total 690 Output Total 200 Balance 490 - Medications Medications: Current Medications Albuterol/Ipratropium (Duoneb 3 Mg/0.5 Mg (3 Ml) Ud) 3 ml IH Q2H PRN PRN Reason: Shortness of Breath Amlodipine Besylate (Norvasc) 10 mg PO DAILY [facility] Last Admin: 06/08/18 09:28 Dose: 10 mg Atorvastatin Calcium (Lipitor) 10 mg PO DIN [facility] Last Admin: 06/08/18 17:03 Dose: 10 mg Calcium Acetate (Phoslo) 667 mg PO WM [facility] Last Admin: 06/08/18 17:03 Dose: 667 mg Darbepoetin José Miguel (Aranesp) 100 mcg SC QWK [facility] Last Admin: 06/08/18 12:09 Dose: 100 mcg Ergocalciferol (Drisdol 50,000 Intl Units Cap) 1 cap PO Q7D [facility] Last Admin: 06/08/18 11:59 Dose: 1 cap Ferrous Gluconate (Fergon) 324 mg PO TID [facility] Last Admin: 06/08/18 17:03 Dose: 324 mg Furosemide (Lasix) 80 mg PO BID [facility] Ceftaroline Fosamil 200 mg/ (Sodium Chloride) 50 mls @ 50 mls/hr IVPB Q12H [facility]; Protocol Stop: 06/16/18 05:19 Last Admin: 06/09/18 06:31 Dose: 50 mls/hr Pantoprazole Sodium (Protonix Ec Tab) 40 mg PO 0600 [facility] Last Admin: 06/09/18 05:40 Dose: 40 mg Sodium Bicarbonate (Sodium Bicarbonate Tab) 650 mg PO BID [facility] Last Admin: 06/08/18 17:05 Dose: 650 mg Tamsulosin HCl (Flomax) 0.4 mg PO DAILY [facility] Last Admin: 06/08/18 09:28 Dose: 0.4 mg Thiamine HCl (Vitamin B1 Tab) 100 mg PO DAILY [facility] Last Admin: 06/08/18 09:28 Dose: 100 mg Vitamin B Complex/Vit C/Folic Acid (Nephro-Rober) 1 tab PO 0800 [facility] Warfarin Sodium (Coumadin) 5 mg PO DAILY [facility]; Protocol Last Admin: 06/08/18 09:28 Dose: 5 mg - Labs Labs: 06/08/18 06:00 06/08/18 06:00 PT 30.7 SECONDS (9.4-12.5) H 06/08/18 06:00 INR 2.62 06/08/18 06:00 APTT 42.4 Seconds (25.1-36.5) H 06/07/18 18:45 - Constitutional Appears: Well, Non-toxic, No Acute Distress - Head Exam Head Exam: ATRAUMATIC, NORMOCEPHALIC - Eye Exam Eye Exam: Normal appearance Pupil Exam: NORMAL ACCOMODATION - ENT Exam ENT Exam: Mucous Membranes Moist - Extremities Exam Additional comments: RLE focused exam Vasc: DP/PT 2/4. Skin temperature warm to warm from proximal to distal WNL. Cap refill < 3 seconds to all digits. No edema noted to right leg at this time Neuro: Epicritic and protective sensation grossly intact b/l Derm: Ulcer noted on the right lateral aspect of the leg with 100% granular base. No pus, no purulent discharge or drainage, no clinical signs of infection. minimal periwound erythema. MSK: Minimal POP at the periwound site. ROM WNL at all major joints. Muscle power intact 5/5 in all major muscle groups. No other gross deformities noted Assessment and Plan - Assessment and Plan (Free Text) Assessment: 82M with pmhx of hypertension, COPD, gastritis and history of DVT evaluated for right lower leg wound Plan: Patient seen and evaluated at bedside with Dr. Pham Afebrile, absent leukocytosis Dressing taken down, wound cleansed sterile saline, dressed with adaptic maxorb and DSD Wound cx taken- f/u results Continue management per medicine Continue IV antibiotics Will continue to follow the patient while in house
[2018-06-09] MEDS: Multivitamin Vitamin B Complex (Nephro-Vite) Tab PO SCH (10:37)
[2018-06-09 10:40] LABS: INR 2.83; PROTHROMBIN TIME 33.2 SECONDS (9.4-12.5)
[2018-06-09 10:42] LABS: HEMOGLOBIN 11.4 g/dL (14.0-18.0)
[2018-06-09 10:46] LABS: ALB/GLOB RATIO 0.9 (1.1-1.8); ALBUMIN 3.9 g/dL (3.0-4.8); CALCIUM 8.8 mg/dL (8.4-10.5)
--- NOTE | 2018-06-09 11:19 | CP.PCM.CON ---
<Guero Hooks - Last Filed: 06/09/18 17:11> History of Present Illness - History of Present Illness History of Present Illness: Guero Hooks DO, PGY1. GI consult note for Dr Maddy Godinez: low H/H at doctor visit 82 y/o male with PMHx significant for dudodenal and cecal AVMs, PVD, colon polyps, CKD, anemia, alcohol and tobacco abuse, DVT on Coumadin, Right LE wound s/p skin graft and subsequent infection growing Serratia, Proteus, and MRSA on Teflaro. Patient is uncooperative during interview, despite being awake and oriented, he does not know why he is being admitted and refused examination as well. Info obtained as per EMR. Patient had lab work at [address] 06/07/2018 with Hgb of 6.5 and creatinine of 7.9 with baseline between 7 and 8.5 as per records. Patient was transfered to [facility] and 2u of PRBCs were given. Patient still refusing endoscopic intervention to further evaluate his anemia. He was recently admitted to [facility] for similar symptoms and discharged on 05/13/18. Patient denied any symptoms of CP, SOB, headache, dizziness, hematochezia, hematemesis, N/V/D, abdominal pain. Patient appears to have poor insight to his medical illness, no family was present during the interview. PMHx: See HPI PSHx: Right SFA/Popliteal and anterior tibial angioplasty, right leg skin graft FHx: Patient denies significant family history Social: Known tobacco, EtOH abuse - pt denies Endo: EGD 02/16 - gastric ulcer, gastritis Past Patient History - Infectious Disease Hx of Infectious Diseases: None - Tetanus Immunizations Tetanus Immunization: Unknown - Past Social History Smoking Status: Never Smoked - CARDIAC Hx Congestive Heart Failure: Yes Hx Hypercholesterolemia: Yes Hx Hypertension: Yes Hx Peripheral Vascular Disease: Yes - PULMONARY Hx Chronic Obstructive Pulmonary Disease (COPD): Yes - NEUROLOGICAL Hx Neurological Disorder: No - HEENT Hx Cataracts: Yes - RENAL Hx Renal Failure: Yes - ENDOCRINE/METABOLIC Hx Endocrine Disorders: No - HEMATOLOGICAL/ONCOLOGICAL Hx Anemia: Yes - INTEGUMENTARY Hx Dermatological Problems: Yes Hx Cellulitis: Yes - MUSCULOSKELETAL/RHEUMATOLOGICAL Hx Arthritis: Yes Hx Unsteady Gait: Yes (cane) - GASTROINTESTINAL Hx Gastroesophageal Reflux: Yes - GENITOURINARY/GYNECOLOGICAL Hx Prostate Problems: Yes (scraping) - PSYCHIATRIC Hx Anxiety: Yes Hx Depression: Yes - SURGICAL HISTORY Other/Comment: s/p skin graft to RT lower extremity - ANESTHESIA Hx Anesthesia Reactions: No Hx Malignant Hyperthermia: No Meds Allergies/Adverse Reactions: Allergies Allergy/AdvReac Type Severity Reaction Status Date / Time No Known Allergies Allergy Verified 04/08/18 10:56 - Medications Medications: Current Medications Albuterol/Ipratropium (Duoneb 3 Mg/0.5 Mg (3 Ml) Ud) 3 ml IH Q2H PRN PRN Reason: Shortness of Breath Amlodipine Besylate (Norvasc) 10 mg PO DAILY [facility] Last Admin: 06/09/18 10:37 Dose: 10 mg Atorvastatin Calcium (Lipitor) 10 mg PO DIN [facility] Last Admin: 06/08/18 17:03 Dose: 10 mg Calcium Acetate (Phoslo) 667 mg PO WM [facility] Last Admin: 06/09/18 10:37 Dose: 667 mg Darbepoetin José Miguel (Aranesp) 100 mcg SC QWK [facility] Last Admin: 06/08/18 12:09 Dose: 100 mcg Ergocalciferol (Drisdol 50,000 Intl Units Cap) 1 cap PO Q7D [facility] Last Admin: 06/08/18 11:59 Dose: 1 cap Ferrous Gluconate (Fergon) 324 mg PO TID [facility] Last Admin: 06/09/18 10:38 Dose: 324 mg Furosemide (Lasix) 80 mg PO BID [facility] Last Admin: 06/09/18 10:38 Dose: 80 mg Ceftaroline Fosamil 200 mg/ (Sodium Chloride) 50 mls @ 50 mls/hr IVPB Q12H [facility]; Protocol Stop: 06/16/18 05:19 Last Admin: 06/09/18 06:31 Dose: 50 mls/hr Pantoprazole Sodium (Protonix Ec Tab) 40 mg PO 0600 [facility] Last Admin: 06/09/18 05:40 Dose: 40 mg Sodium Bicarbonate (Sodium Bicarbonate Tab) 650 mg PO BID [facility] Last Admin: 06/09/18 10:38 Dose: 650 mg Tamsulosin HCl (Flomax) 0.4 mg PO DAILY [facility] Last Admin: 06/09/18 10:37 Dose: 0.4 mg Thiamine HCl (Vitamin B1 Tab) 100 mg PO DAILY [facility] Last Admin: 06/09/18 10:38 Dose: 100 mg Vitamin B Complex/Vit C/Folic Acid (Nephro-Rober) 1 tab PO 0800 [facility] Last Admin: 06/09/18 10:37 Dose: 1 tab Warfarin Sodium (Coumadin) 5 mg PO DAILY [facility]; Protocol Last Admin: 06/09/18 10:39 Dose: Not Given Physical Exam - Additional Findings Additional findings: Patient refused medical examination Results - Vital Signs Recent Vital Signs: Last Vital Signs Temp 97.9 F 06/09/18 06:00 Pulse 78 06/09/18 06:00 Resp 19 06/09/18 06:00 BP 148/71 06/09/18 10:38 Pulse Ox 96 06/09/18 00:01 - Labs Result Diagrams: 06/09/18 10:25 06/09/18 10:25 Labs: Laboratory Results - last 24 hr 06/07/18 06/08/18 06/09/18 18:45 19:00 10:25 Hgb 11.4 L D Hct 35.7 L PT INR Sodium Potassium Chloride Carbon Dioxide Anion Gap BUN Creatinine Est GFR ( Amer) Est GFR (Non-Af Amer) Random Glucose Calcium Phosphorus Magnesium Total Bilirubin AST ALT Alkaline Phosphatase Total Protein Albumin Globulin Albumin/Globulin Ratio Stool Occult Blood Positive H Blood Type A POSITIVE Antibody Screen Negative Crossmatch See Detail BBK History Checked Patient has bt 06/09/18 06/09/18 10:25 10:25 Hgb Hct PT 33.2 H INR 2.83 Sodium 138 Potassium 4.1 Chloride 104 Carbon Dioxide 25 Anion Gap 13 BUN 47 H Creatinine 4.8 H Est GFR ( Amer) 14 Est GFR (Non-Af Amer) 12 Random Glucose 117 H Calcium 8.8 Phosphorus 5.2 H Magnesium 1.8 Total Bilirubin 0.6 AST 36 ALT 26 Alkaline Phosphatase 139 H D Total Protein 8.3 Albumin 3.9 Globulin 4.4 Albumin/Globulin Ratio 0.9 L Stool Occult Blood Blood Type Antibody Screen Crossmatch BBK History Checked Assessment & Plan - Assessment and Plan (Free Text) Assessment: 82 y/o male with PMHx significant for dudodenal and cecal AVMs, PVD, colon polyps, CKD, anemia, alcohol and tobacco abuse, DVT on Coumadin, Right LE wound s/p skin graft and subsequent infection, on abx therapy admitted to [facility] for low HgB level requiring 2u of PRBC Anemia CKD RLE wound and cellulitis H/O PUD, AVMs H/O EtOH and tobacco abuse Plan: -patient is refusing endoscopic evaluation of anemia and possible blood loss in the setting of PUD, AVM -patient is having a poor insight for his medical illness -continue PPI -continue monitoring H/H, transfuse prn -continue medical therapy as per primary team Case reviewed and plan discussed with Dr Maddy Hooks, DO <Mary Jane Castañeda V - Last Filed: 06/09/18 18:34> Meds - Medications Medications: Current Medications Albuterol/Ipratropium (Duoneb 3 Mg/0.5 Mg (3 Ml) Ud) 3 ml IH Q2H PRN PRN Reason: Shortness of Breath Amlodipine Besylate (Norvasc) 10 mg PO DAILY [facility] Last Admin: 06/09/18 10:37 Dose: 10 mg Atorvastatin Calcium (Lipitor) 10 mg PO DIN [facility] Last Admin: 06/09/18 17:34 Dose: 10 mg Benzonatate (Tessalon Perles) 200 mg PO TID PRN PRN Reason: Cough Last Admin: 06/09/18 12:00 Dose: 200 mg Budesonide (Pulmicort Respules) 0.5 mg IH [id number] [facility] Calcium Acetate (Phoslo) 667 mg PO WM [facility] Last Admin: 06/09/18 17:34 Dose: 667 mg Darbepoetin José Miguel (Aranesp) 100 mcg SC QWK [facility] Last Admin: 06/08/18 12:09 Dose: 100 mcg Ergocalciferol (Drisdol 50,000 Intl Units Cap) 1 cap PO Q7D [facility] Last Admin: 06/08/18 11:59 Dose: 1 cap Ferrous Gluconate (Fergon) 324 mg PO TID [facility] Last Admin: 06/09/18 17:34 Dose: 324 mg Furosemide (Lasix) 80 mg PO BID [facility] Last Admin: 06/09/18 17:34 Dose: 80 mg Ceftaroline Fosamil 200 mg/ (Sodium Chloride) 50 mls @ 50 mls/hr IVPB Q12H [facility]; Protocol Stop: 06/16/18 05:19 Last Admin: 06/09/18 18:06 Dose: 50 mls/hr Methylprednisolone (Solu-Medrol) 40 mg IV Q12 [facility] Pantoprazole Sodium (Protonix Ec Tab) 40 mg PO 0600 [facility] Last Admin: 06/09/18 05:40 Dose: 40 mg Sodium Bicarbonate (Sodium Bicarbonate Tab) 650 mg PO BID [facility] Last Admin: 06/09/18 17:34 Dose: 650 mg Tamsulosin HCl (Flomax) 0.4 mg PO DAILY [facility] Last Admin: 06/09/18 10:37 Dose: 0.4 mg Thiamine HCl (Vitamin B1 Tab) 100 mg PO DAILY [facility] Last Admin: 06/09/18 10:38 Dose: 100 mg Vitamin B Complex/Vit C/Folic Acid (Nephro-Rober) 1 tab PO 0800 [facility] Last Admin: 06/09/18 10:37 Dose: 1 tab Warfarin Sodium (Coumadin) 5 mg PO DAILY [facility]; Protocol Last Admin: 06/09/18 10:39 Dose: Not Given Results - Vital Signs Recent Vital Signs: Last Vital Signs Temp 97.4 F L 06/09/18 18:00 Pulse 79 06/09/18 18:00 Resp 18 06/09/18 18:00 BP 137/65 06/09/18 18:00 Pulse Ox 96 06/09/18 00:01 - Labs Result Diagrams: 06/09/18 10:25 06/09/18 10:25 Labs: Laboratory Results - last 24 hr 06/07/18 06/08/18 06/09/18 18:45 19:00 10:25 Hgb 11.4 L D Hct 35.7 L PT INR Sodium Potassium Chloride Carbon Dioxide Anion Gap BUN Creatinine Est GFR ( Amer) Est GFR (Non-Af Amer) Random Glucose Calcium Phosphorus Magnesium Total Bilirubin AST ALT Alkaline Phosphatase Total Protein Albumin Globulin Albumin/Globulin Ratio Stool Occult Blood Positive H Crossmatch See Detail 06/09/18 06/09/18 10:25 10:25 Hgb Hct PT 33.2 H INR 2.83 Sodium 138 Potassium 4.1 Chloride 104 Carbon Dioxide 25 Anion Gap 13 BUN 47 H Creatinine 4.8 H Est GFR ( Amer) 14 Est GFR (Non-Af Amer) 12 Random Glucose 117 H Calcium 8.8 Phosphorus 5.2 H Magnesium 1.8 Total Bilirubin 0.6 AST 36 ALT 26 Alkaline Phosphatase 139 H D Total Protein 8.3 Albumin 3.9 Globulin 4.4 Albumin/Globulin Ratio 0.9 L Stool Occult Blood Crossmatch Attending/Attestation - Attestation I have personally seen and examined this patient.: Yes I have fully participated in the care of the patient.: Yes I have reviewed all pertinent clinical information: Yes Notes (Text): This is an addendum to GI consult report dictated by the Cosmetics Counter Manager. The patient was seen and evaluated earlier. Medical records, lab studies, imagings were reviewed. Last 24 hours events reviewed. Agreed with the above treatment plan as outlined in Cosmetics Counter Manager 's notes with the addition of the following this patient was admitted with severe anemia probably multifactorial etiolo Status post transfusion history of gastric ulcer EGD done in January 2018 Patient has been refusingEGD in spite of explanation about missing cancer and worsening of the bleeding Patient has renal failure this also could be another contributing factor Continue PPI follow-up hemoglobin Would schedule the patient for EGD for if agreeable at the present time he is refusing 06/09/18 18:30
--- NOTE | 2018-06-09 12:17 | RAD ---
Date of service: 06/09/2018 HISTORY: Repeat - possible CHF COMPARISON: June 08, 2018. FINDINGS: LUNGS: Improving pulmonary vascular congestion. Stable consolidative changes left lower lobe likely compressive atelectasis. PLEURA: Stable left pleural effusion. CARDIOVASCULAR: Atherosclerotic calcifications identified primarily aortic arch. OSSEOUS STRUCTURES: No significant abnormalities. VISUALIZED UPPER ABDOMEN: Normal. OTHER FINDINGS: None. IMPRESSION: Improving pulmonary vascular congestion. Stable underlying consolidative changes/compressive atelectasis left lower lobe associated left pleural effusion.
--- NOTE | 2018-06-09 12:53 | CP.PCM.PCO ---
Physician Communication Note - Physician Communication Note Physician Communication Note: GI consulted for anemia, fluid overload, wound cult pending, CKD
--- NOTE | 2018-06-09 14:54 | CARD ---
APPROVED REPORT Date of service: 06/09/2018 EXAM: Two-dimensional and M-mode echocardiogram with Doppler and color Doppler. INDICATION Dyspnea 2D DIMENSIONS Left Atrium (2D)3.7 (1.6-4.0cm)IVSd1.3 (0.7-1.1cm) LVDd3.9 (3.9-5.9cm)PWd1.0 (0.7-1.1cm) LVDs2.5 (2.5-4.0cm)FS (%) 35.4 % LVEF (%)65.4 (>50%) M-Mode DIMENSIONS Aortic Root2.30 (2.2-3.7cm)Aortic Cusp Exc.1.40 (1.5-2.0cm) Aortic Valve AoV Peak Cyhtaczy909.0cm/Mary Peak GR.9mmHg Mitral Valve MV E Ebribsgq789.0cm/sMV A Dhgcoojf308.0cm/sE/A ratio1.1 TDI E/Lateral E'0.0E/Medial E'0.0 Tricuspid Valve TR Peak Pqmqhelc512pg/sRAP [id number] Peak Gr.24mmHg [id number] LEFT VENTRICLE The left ventricle is normal size. There is borderline to mild concentric left ventricular hypertrophy. The left ventricular function is normal. The left ventricular ejection fraction is within the normal range. There is normal LV segmental wall motion. Transmitral Doppler flow pattern is Grade II-pseudonormal filling dynamics. RIGHT VENTRICLE The right ventricle is normal size. There is normal right ventricular wall thickness. The right ventricular systolic function is normal. ATRIA The left atrium size is normal. The right atrium size is normal. AORTIC VALVE The aortic valve is moderately to severely sclerotic. No aortic regurgitation is present. There is no aortic valvular stenosis. MITRAL VALVE The mitral valve is moderately thickened. Mitral annular calcification is moderate. Mitral regurgitation is mild. There is no mitral valve stenosis. TRICUSPID VALVE There is mild tricuspid regurgitation. There is mild pulmonary hypertension. PULMONIC VALVE There is mild pulmonic valvular regurgitation. GREAT VESSELS The aortic root displays severe sclerocalcific changes of the aortic PERICARDIAL EFFUSION There is no pericardial effusion. <Conclusion> There is borderline to mild concentric left ventricular hypertrophy. The left ventricular function is normal. The left ventricular ejection fraction is within the normal range. There is normal LV segmental wall motion. Transmitral Doppler flow pattern is Grade II-pseudonormal filling dynamics. Mitral regurgitation is mild. There is mild tricuspid regurgitation. There is mild pulmonary hypertension.
--- NOTE | 2018-06-09 15:20 | CP.PCM.PN ---
Subjective - Date & Time of Evaluation Date of Evaluation: 06/09/18 Time of Evaluation: 15:18 - Subjective Subjective: Nephrology Consultation Note: Assessment: stable acute on chronic anemia likely multi-factorial pulm edema Recent acute Kidney Injury (N17.9) possibly AIN due to abx as also with peripheral eosinophilia and/or vancomycin nephrotoxicity. 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 Pt and daughter had refused for dialysis/kidney biopsy during last admission. 06/09/18: met her in room and discussed about kidney biopsy. she will d/w father and decide d/w daughter, to anticipate dialysis need in near future Hypertension control with meds as ordered. Maintain hemodynamics stable. Avoid hypotension. Patient not on ACEI/ARB due to recent HARSH. Monitor Input/Output, daily weights and renal function with basic metabolic panel continue with weekly Vit D, iron, MVI, phos binders and sodium bicarb. Added Aransep 100 mcg weekly s/p blood transfusion on PPI and thiamine as well on flomax as PVR 168 mL Increase lasix 80 mg orally twice daily. had recent heme eval for anemia and paraproteinemia Dose meds/antibiotics for reduced GFR. Avoid fleets enema/magnesium based laxatives. Avoid nephrotoxins/NSAIDs/ iodinated contrast (unless needed emergently) Glycemic control Further work up/management as per primary team pt stable for d/c from renal perspective when planned, with 1 week outpt renal follow up Thanks for allowing me to participate in care of your patient. Will follow patient with you. Please call if any Qs. had d/w team Dr Froilan Spears Office: [phone] CC; Anemia Reason for consult: Acute Kidney Injury and kidney disease HPI: Pt is a 82 M with hx of HTN, COPD, DVT on coumadin, etoh/smoker (quit 6 months ago), anemia, CKD 3 with baseline cr 1.4-1.5 with superimpsed HARSH with cr up to 6 range recently (pt and daughter refused for kidney biopsy and dialysis) presented with complaints of SOB on exertion, anemia abnormal kidney fxn Denies OTC/herbal meds or NSAIDs No recent iodinated contrast exposure. No obvious episodes of low BP. c/o rt leg swelling ROS: Cardiovascular: No chest pain. Pulmonary: No shortness of breath now but has it on exertion. better now Gastrointestinal: denies abdominal pain No nausea. No vomiting. says stool color as brown Genitourinary: No pain while urinating. Denies blood in urine. All other negative except as mentioned in HPI Physical Examination: General Appearance: Comfortable, in no acute respiratory distress, co-operative. somewhat cachexic Vitals reviewed and noted as below Head; Atraumatic, normocephalic ENT: no ulcers no thrush. Tongue is midline. Oropharynx: no rash or ulcers. EYES: Pupils are equal, round and reactive to light accommodation. Eye muscles and extraocular movement intact. Sclera is anicteric. Neck; supple no lymphadenopathy, no thyromegaly or bruit Lungs: Normal respiratory rate/effort. Breath sounds bilateral decreased at bases with occasional basal crackles Heart: Normal rate. s1s2 normal. No rub or gallop. Extremities: no edema (R>>L) RLE swelling, dressing + Neurological: Patient is alert, awake and oriented to person, place and time. No focal deficit. Strength bilateral appropriate and equal Skin: Warm and dry. Normal turgor. No rash. Palpitation: Normal elasticity for age Abdomen: Abdomen is soft. Bowel sounds +. There is no abdominal tenderness, no guarding/rigidity ? hepatomegaly Psych: lack insight and normal affect/mood MSK: no joint tenderness or swelling. Digits and nails normal, no deformity : kidney not palpable Labs/imaging reviewed. Past medical history, past surgical history, family history, social history, allergy reviewed and noted as below Family hx: no hx of CKD. Rest non-contributory Vit D <12.8 PTh 45 TSAt 55% Ferritin 78 FOB + SPEP + but k/l ration 2.1 urine alb/cr 44 mg/g Objective - Vital Signs/Intake and Output Vital Signs (last 24 hours): Temp Pulse Resp BP Pulse Ox 97.4 F L 72 18 133/66 96 06/09/18 12:00 06/09/18 12:00 06/09/18 12:00 06/09/18 12:00 06/09/18 00:01 Intake and Output: 06/09/18 06/09/18 06:59 18:59 Intake Total 690 Output Total 200 Balance 490 - Medications Medications: Current Medications Albuterol/Ipratropium (Duoneb 3 Mg/0.5 Mg (3 Ml) Ud) 3 ml IH Q2H PRN PRN Reason: Shortness of Breath Amlodipine Besylate (Norvasc) 10 mg PO DAILY [facility] Last Admin: 06/09/18 10:37 Dose: 10 mg Atorvastatin Calcium (Lipitor) 10 mg PO DIN [facility] Last Admin: 06/08/18 17:03 Dose: 10 mg Benzonatate (Tessalon Perles) 200 mg PO TID PRN PRN Reason: Cough Last Admin: 06/09/18 12:00 Dose: 200 mg Budesonide (Pulmicort Respules) 0.5 mg IH [id number] [facility] Calcium Acetate (Phoslo) 667 mg PO WM [facility] Last Admin: 06/09/18 13:17 Dose: 667 mg Darbepoetin José Miguel (Aranesp) 100 mcg SC QWK [facility] Last Admin: 06/08/18 12:09 Dose: 100 mcg Ergocalciferol (Drisdol 50,000 Intl Units Cap) 1 cap PO Q7D [facility] Last Admin: 06/08/18 11:59 Dose: 1 cap Ferrous Gluconate (Fergon) 324 mg PO TID [facility] Last Admin: 06/09/18 10:38 Dose: 324 mg Furosemide (Lasix) 80 mg PO BID [facility] Last Admin: 06/09/18 10:38 Dose: 80 mg Ceftaroline Fosamil 200 mg/ (Sodium Chloride) 50 mls @ 50 mls/hr IVPB Q12H [facility]; Protocol Stop: 06/16/18 05:19 Last Admin: 06/09/18 06:31 Dose: 50 mls/hr Pantoprazole Sodium (Protonix Ec Tab) 40 mg PO 0600 [facility] Last Admin: 06/09/18 05:40 Dose: 40 mg Sodium Bicarbonate (Sodium Bicarbonate Tab) 650 mg PO BID [facility] Last Admin: 06/09/18 10:38 Dose: 650 mg Tamsulosin HCl (Flomax) 0.4 mg PO DAILY [facility] Last Admin: 06/09/18 10:37 Dose: 0.4 mg Thiamine HCl (Vitamin B1 Tab) 100 mg PO DAILY [facility] Last Admin: 06/09/18 10:38 Dose: 100 mg Vitamin B Complex/Vit C/Folic Acid (Nephro-Rober) 1 tab PO 0800 [facility] Last Admin: 06/09/18 10:37 Dose: 1 tab Warfarin Sodium (Coumadin) 5 mg PO DAILY [facility]; Protocol Last Admin: 06/09/18 10:39 Dose: Not Given - Labs Labs: 06/09/18 10:25 06/09/18 10:25 PT 33.2 SECONDS (9.4-12.5) H 06/09/18 10:25 INR 2.83 06/09/18 10:25 APTT 42.4 Seconds (25.1-36.5) H 06/07/18 18:45
--- NOTE | 2018-06-09 16:07 | CP.PCM.PN ---
Subjective - Date & Time of Evaluation Date of Evaluation: 06/09/18 Time of Evaluation: 15:00 - Subjective Subjective: Infectious Disease Follow Up: June 09, 2018 82 yo male seen in my office on afternoon of 06/07/2018 for follow up on the wounds and management of antibiotics while patient is receiving care and antibiotics at [facility] [place]. The patient with wound cultures that grew Serratia, Proteus, and MRSA from cultures from March to 2017. Treatment with Home IV of Ceftriaxone and Vancomycin IV but unfortunately, the patient developed renal insufficiency and did not recover renal function to this point in time. The patient had laboratories done at [facility] facility the morning of 06/07/2018. Hgb was down to 6.5. Creatinine up to 7.9. For the past month, the patient's Hgb was between 7 and 8.5 as per daughter. The patient was on Teflaro for antibiotic treatment due to the renal issues. He was [place] [facility] [place]2018 with Teflaro to [facility] in [place]. The right leg wound is still a stage II-III ulceration with granualation tissue and mild serosaguinous drainage. No pus. This ulceration has been very slow to heal. Creatinine is 4.8 and Hgb 11.4 after 2U of PRBCs given. Breathing of the patient improved. Noted that stool occult blood is positive. Still poor ur inary output despite what the patient says and believes. Objective - Vital Signs/Intake and Output Vital Signs (last 24 hours): Temp Pulse Resp BP Pulse Ox 97.4 F L 72 18 133/66 96 06/09/18 12:00 06/09/18 12:00 06/09/18 12:00 06/09/18 12:00 06/09/18 00:01 Intake and Output: 06/09/18 06/09/18 06:59 18:59 Intake Total 690 Output Total 200 Balance 490 - Medications Medications: Current Medications Albuterol/Ipratropium (Duoneb 3 Mg/0.5 Mg (3 Ml) Ud) 3 ml IH Q2H PRN PRN Reason: Shortness of Breath Amlodipine Besylate (Norvasc) 10 mg PO DAILY [facility] Last Admin: 06/09/18 10:37 Dose: 10 mg Atorvastatin Calcium (Lipitor) 10 mg PO DIN [facility] Last Admin: 06/08/18 17:03 Dose: 10 mg Benzonatate (Tessalon Perles) 200 mg PO TID PRN PRN Reason: Cough Last Admin: 06/09/18 12:00 Dose: 200 mg Budesonide (Pulmicort Respules) 0.5 mg IH [id number] [facility] Calcium Acetate (Phoslo) 667 mg PO WM [facility] Last Admin: 06/09/18 13:17 Dose: 667 mg Darbepoetin José Miguel (Aranesp) 100 mcg SC QWK [facility] Last Admin: 06/08/18 12:09 Dose: 100 mcg Ergocalciferol (Drisdol 50,000 Intl Units Cap) 1 cap PO Q7D [facility] Last Admin: 06/08/18 11:59 Dose: 1 cap Ferrous Gluconate (Fergon) 324 mg PO TID [facility] Last Admin: 06/09/18 10:38 Dose: 324 mg Furosemide (Lasix) 80 mg PO BID [facility] Last Admin: 06/09/18 10:38 Dose: 80 mg Ceftaroline Fosamil 200 mg/ (Sodium Chloride) 50 mls @ 50 mls/hr IVPB Q12H [facility]; Protocol Stop: 06/16/18 05:19 Last Admin: 06/09/18 06:31 Dose: 50 mls/hr Pantoprazole Sodium (Protonix Ec Tab) 40 mg PO 0600 [facility] Last Admin: 06/09/18 05:40 Dose: 40 mg Sodium Bicarbonate (Sodium Bicarbonate Tab) 650 mg PO BID [facility] Last Admin: 06/09/18 10:38 Dose: 650 mg Tamsulosin HCl (Flomax) 0.4 mg PO DAILY [facility] Last Admin: 06/09/18 10:37 Dose: 0.4 mg Thiamine HCl (Vitamin B1 Tab) 100 mg PO DAILY [facility] Last Admin: 06/09/18 10:38 Dose: 100 mg Vitamin B Complex/Vit C/Folic Acid (Nephro-Rober) 1 tab PO 0800 [facility] Last Admin: 06/09/18 10:37 Dose: 1 tab Warfarin Sodium (Coumadin) 5 mg PO DAILY [facility]; Protocol Last Admin: 06/09/18 10:39 Dose: Not Given - Labs Labs: 06/09/18 10:25 06/09/18 10:25 PT 33.2 SECONDS (9.4-12.5) H 06/09/18 10:25 INR 2.83 06/09/18 10:25 APTT 42.4 Seconds (25.1-36.5) H 06/07/18 18:45 - Constitutional Appears: Non-toxic, No Acute Distress, Chronically Ill - Head Exam Head Exam: ATRAUMATIC, NORMOCEPHALIC - Eye Exam Eye Exam: EOMI, PERRL Pupil Exam: NORMAL ACCOMODATION, PERRL - ENT Exam ENT Exam: Mucous Membranes Moist, Normal External Ear Exam, TM's Normal Bilaterally - Neck Exam Neck Exam: Full ROM, Normal Inspection - Respiratory Exam Respiratory Exam: Clear to Ausculation Bilateral, NORMAL BREATHING PATTERN. absent: Rales, Rhonchi, Wheezes - Cardiovascular Exam Cardiovascular Exam: REGULAR RHYTHM, RRR, +S1, +S2 - GI/Abdominal Exam GI & Abdominal Exam: Soft, Normal Bowel Sounds. absent: Distended, Tenderness - Extremities Exam Extremities Exam: Full ROM Additional comments: right lower leg with stage II-III ulcerations that is mostly dry with mild serosaguinous drainage. Walk with cane. - Neurological Exam Neurological Exam: Alert, Awake, CN II-XII Intact, Oriented x3 - Psychiatric Exam Psychiatric exam: Normal Affect, Normal Mood - Skin Skin Exam: Normal Color Additional comments: as above. right lower leg with stage II-III ulcerations that is mostly dry with mild serosaguinous drainage. Assessment and Plan - Assessment and Plan (Free Text) Assessment: 82 yo [place] male seen in my office for follow up for management of Teflaro for the patient wounds in the right lower leg. The patient had mild serosaguinous drainage. [facility] [place] had drawn labs in the AM with results of Hgb of 6.5 and Creatinine of 7.9. Discussed these values with the patient and the patient's daughter. They were amendable to admission to [facility]. Discussed case with Dr. Garcia. Restarting Teflaro as the patient has completed over 4.5 weeks of treatment out of 6 weeks. WBC at 7.0 yesterday morning. Received 2U PRBCs in total. Creatinine of 4.8. WBC currently 11.4. Still poor urinary output despite what the patient is s tating. 200 cc for the shift so far. Discussed renal function with the patient and his daughter in my office, They may be amendable for kidney biopsy now. Monitoring Hgb. Supportive care. Thank you for allowing me to participate in the care of this patient, we will follow with you.
[2018-06-09] MEDS: Albuterol-Ipratrop 3 mg / 0.5 (3 ml) UD IH PRN (19:20)
[2018-06-09] MEDS: Budesonide 0.5 mg/2 ml Inhal Susp UD IH SCH (19:20)
[2018-06-09] MEDS: MethylPREDNISolone 40 mg Vial IV SCH (21:57)
[2018-06-10] MEDS: Pantoprazole 40 mg EC Tab PO SCH (06:01)
[2018-06-10] MEDS: Multivitamin Vitamin B Complex (Nephro-Vite) Tab PO SCH (07:59)
[2018-06-10] MEDS: Budesonide 0.5 mg/2 ml Inhal Susp UD IH SCH ×2 (08:21→19:31)
[2018-06-10] MEDS: MethylPREDNISolone 40 mg Vial IV SCH ×2 (09:20→21:29)
--- NOTE | 2018-06-10 09:29 | CP.PCM.PN ---
Subjective - Date & Time of Evaluation Date of Evaluation: 06/10/18 Time of Evaluation: 09:28 - Subjective Subjective: Podiatry progress note for Dr. Pham/ Hany 82 yo male with pmhx of hypertension, COPD, gastritis and history of DVT presented to the ED yesterday for anemia and renal failure. Patient has a wound on the lateral aspect of the leg that has been present for about 4 months. Denies acute overnight events. Denies pain to lower extremity. Denies f/n/v/sob. Objective - Vital Signs/Intake and Output Vital Signs (last 24 hours): Temp Pulse Resp BP Pulse Ox 97.9 F 80 19 130/60 99 06/10/18 06:00 06/10/18 08:14 06/10/18 06:00 06/10/18 09:20 06/10/18 06:00 Intake and Output: 06/10/18 06/10/18 06:59 18:59 Intake Total 1370 Balance 1370 - Medications Medications: Current Medications Albuterol/Ipratropium (Duoneb 3 Mg/0.5 Mg (3 Ml) Ud) 3 ml IH Q2H PRN PRN Reason: Shortness of Breath Last Admin: 06/09/18 19:20 Dose: 3 ml Amlodipine Besylate (Norvasc) 10 mg PO DAILY [facility] Last Admin: 06/10/18 09:20 Dose: 10 mg Atorvastatin Calcium (Lipitor) 10 mg PO DIN [facility] Last Admin: 06/09/18 17:34 Dose: 10 mg Benzonatate (Tessalon Perles) 200 mg PO TID PRN PRN Reason: Cough Last Admin: 06/09/18 12:00 Dose: 200 mg Budesonide (Pulmicort Respules) 0.5 mg IH [id number] [facility] Last Admin: 06/10/18 08:21 Dose: 0.5 mg Calcium Acetate (Phoslo) 667 mg PO WM [facility] Last Admin: 06/10/18 07:59 Dose: 667 mg Darbepoetin José Miguel (Aranesp) 100 mcg SC QWK [facility] Last Admin: 06/08/18 12:09 Dose: 100 mcg Ergocalciferol (Drisdol 50,000 Intl Units Cap) 1 cap PO Q7D [facility] Last Admin: 06/08/18 11:59 Dose: 1 cap Ferrous Gluconate (Fergon) 324 mg PO TID [facility] Last Admin: 06/10/18 09:18 Dose: 324 mg Furosemide (Lasix) 80 mg PO BID [facility] Last Admin: 06/10/18 09:18 Dose: 80 mg Ceftaroline Fosamil 200 mg/ (Sodium Chloride) 50 mls @ 50 mls/hr IVPB Q12H [facility]; Protocol Stop: 06/16/18 05:19 Last Admin: 06/10/18 06:01 Dose: 50 mls/hr Methylprednisolone (Solu-Medrol) 40 mg IV Q12 [facility] Last Admin: 06/10/18 09:20 Dose: 40 mg Pantoprazole Sodium (Protonix Ec Tab) 40 mg PO 0600 [facility] Last Admin: 06/10/18 06:01 Dose: 40 mg Sodium Bicarbonate (Sodium Bicarbonate Tab) 650 mg PO BID [facility] Last Admin: 06/10/18 09:20 Dose: 650 mg Tamsulosin HCl (Flomax) 0.4 mg PO DAILY [facility] Last Admin: 06/10/18 09:18 Dose: 0.4 mg Thiamine HCl (Vitamin B1 Tab) 100 mg PO DAILY [facility] Last Admin: 06/10/18 09:21 Dose: 100 mg Vitamin B Complex/Vit C/Folic Acid (Nephro-Rober) 1 tab PO 0800 [facility] Last Admin: 06/10/18 07:59 Dose: 1 tab Warfarin Sodium (Coumadin) 5 mg PO DAILY [facility]; Protocol Last Admin: 06/10/18 09:18 Dose: 5 mg - Labs Labs: 06/09/18 10:25 06/09/18 10:25 PT 33.2 SECONDS (9.4-12.5) H 06/09/18 10:25 INR 2.83 06/09/18 10:25 APTT 42.4 Seconds (25.1-36.5) H 06/07/18 18:45 - Constitutional Appears: Well, Non-toxic, No Acute Distress - Head Exam Head Exam: ATRAUMATIC, NORMOCEPHALIC - Eye Exam Eye Exam: Normal appearance Pupil Exam: NORMAL ACCOMODATION - ENT Exam ENT Exam: Mucous Membranes Moist - Extremities Exam Additional comments: RLE focused exam Vasc: DP/PT 2/4. Skin temperature warm to warm from proximal to distal WNL. Cap refill < 3 seconds to all digits. No edema noted to right leg at this time Neuro: Epicritic and protective sensation grossly intact b/l Derm: Ulcer noted on the right lateral aspect of the leg with 100% granular base. Hypergranular base. No pus, no purulent discharge or drainage, no clinical signs of infection. minimal periwound erythema. MSK: Minimal POP at the periwound site. ROM WNL at all major joints. Muscle power intact 5/5 in all major muscle groups. No other gross deformities noted Assessment and Plan - Assessment and Plan (Free Text) Assessment: 82M with pmhx of hypertension, COPD, gastritis and history of DVT evaluated for right lower leg wound Plan: Patient seen and evaluated at bedside with Dr. Pham Afebrile, absent leukocytosis Dressing taken down, wound cleansed sterile saline, dressed with adaptic maxorb and DSD Wound cx taken- no growth after 24 hours Continue management per medicine Continue IV antibiotics Will continue to follow the patient while in house
[2018-06-10 11:36] LABS: GRAN # 2.59 (1.4-6.5); GRAN % 85.5 % (50.0-68.0); HEMOGLOBIN 9.7 g/dL (14.0-18.0); LYMPH # 0.4 (1.2-3.4); LYMPH % 13.2 % (22.0-35.0); MEAN CORPUSCULAR HGB CONC 31.5 g/dl (31.0-37.0); MEAN PLATELET VOLUME 9.6 fl (7.0-11.0); MONO % 1.3 % (1.0-6.0); RBC 3.46 10^6/uL (3.5-6.1); RED CELL DISTRIBUTION WIDTH 16.6 % (11.5-14.5)
[2018-06-10 12:00] LABS: ALB/GLOB RATIO 0.8 (1.1-1.8); ALBUMIN 3.4 g/dL (3.0-4.8); CALCIUM 8.4 mg/dL (8.4-10.5)
[2018-06-10] MEDS ORDERED: Magnesium Oxide 400 mg Tab UD PO SCH (12:45)
--- NOTE | 2018-06-10 12:52 | CP.PCM.PCO ---
Physician Communication Note - Physician Communication Note Physician Communication Note: reeval, labs, cxr in am. Patient is for possible transfer to [facility] 06/11/18
--- NOTE | 2018-06-10 14:29 | CP.PCM.PN ---
Subjective - Date & Time of Evaluation Date of Evaluation: 06/10/18 Time of Evaluation: 14:28 - Subjective Subjective: Nephrology Consultation Note: Assessment: stable acute on chronic anemia likely multi-factorial pulm edema Recent acute Kidney Injury (N17.9) possibly AIN due to abx as also with peripheral eosinophilia and/or vancomycin nephrotoxicity. 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 Pt and daughter had refused for dialysis/kidney biopsy during last admission. 06/09/18: met her in room and discussed about kidney biopsy. she will d/w father and decide d/w daughter, to anticipate dialysis need in near future Hypertension control with meds as ordered. Maintain hemodynamics stable. Avoid hypotension. Patient not on ACEI/ARB due to recent HARSH. Monitor Input/Output, daily weights and renal function with basic metabolic panel continue with weekly Vit D, iron, MVI, phos binders and sodium bicarb. Added Aransep 100 mcg weekly s/p blood transfusion on PPI and thiamine as well on flomax as PVR 168 mL Increase lasix 80 mg orally twice daily. had recent heme eval for anemia and paraproteinemia Dose meds/antibiotics for reduced GFR. Avoid fleets enema/magnesium based laxatives. Avoid nephrotoxins/NSAIDs/ iodinated contrast (unless needed emergently) Glycemic control Further work up/management as per primary team pt stable for d/c from renal perspective when planned, with 1 week outpt renal follow up Thanks for allowing me to participate in care of your patient. Will follow patient with you. Please call if any Qs. had d/w team Dr Froilan Spears Office: [phone] CC; Anemia Reason for consult: Acute Kidney Injury and kidney disease HPI: Pt is a 82 M with hx of HTN, COPD, DVT on coumadin, etoh/smoker (quit 6 months ago), anemia, CKD 3 with baseline cr 1.4-1.5 with superimpsed HARSH with cr up to 6 range recently (pt and daughter refused for kidney biopsy and dialysis) presented with complaints of SOB on exertion, anemia abnormal kidney fxn Denies OTC/herbal meds or NSAIDs No recent iodinated contrast exposure. No obvious episodes of low BP. c/o rt leg swelling ROS: Cardiovascular: No chest pain. Pulmonary: No shortness of breath now but had it on exertion. better now Gastrointestinal: denies abdominal pain No nausea. No vomiting. says stool color as brown Genitourinary: No pain while urinating. Denies blood in urine. All other negative except as mentioned in HPI Physical Examination: General Appearance: Comfortable, in no acute respiratory distress, co-operative. somewhat cachexic Vitals reviewed and noted as below Head; Atraumatic, normocephalic ENT: no ulcers no thrush. Tongue is midline. Oropharynx: no rash or ulcers. EYES: Pupils are equal, round and reactive to light accommodation. Eye muscles and extraocular movement intact. Sclera is anicteric. Neck; supple no lymphadenopathy, no thyromegaly or bruit Lungs: Normal respiratory rate/effort. Breath sounds bilateral clearer Heart: Normal rate. s1s2 normal. No rub or gallop. Extremities: no edema RLE dressing + Neurological: Patient is alert, awake and oriented to person, place and time. No focal deficit. Strength bilateral appropriate and equal Skin: Warm and dry. Normal turgor. No rash. Palpitation: Normal elasticity for age Abdomen: Abdomen is soft. Bowel sounds +. There is no abdominal tenderness, no guarding/rigidity ? hepatomegaly Psych: lack insight and normal affect/mood MSK: no joint tenderness or swelling. Digits and nails normal, no deformity : kidney not palpable Labs/imaging reviewed. Past medical history, past surgical history, family history, social history, allergy reviewed and noted as below Family hx: no hx of CKD. Rest non-contributory Vit D <12.8 PTh 45 TSAt 55% Ferritin 78 FOB + SPEP + but k/l ration 2.1 urine alb/cr 44 mg/g Objective - Vital Signs/Intake and Output Vital Signs (last 24 hours): Temp Pulse Resp BP Pulse Ox 97.3 F L 80 18 132/62 99 06/10/18 12:00 06/10/18 12:00 06/10/18 12:00 06/10/18 12:00 06/10/18 06:00 Intake and Output: 06/10/18 06/10/18 06:59 18:59 Intake Total 1370 Balance 1370 - Medications Medications: Current Medications Albuterol/Ipratropium (Duoneb 3 Mg/0.5 Mg (3 Ml) Ud) 3 ml IH Q2H PRN PRN Reason: Shortness of Breath Last Admin: 06/09/18 19:20 Dose: 3 ml Amlodipine Besylate (Norvasc) 10 mg PO DAILY [facility] Last Admin: 06/10/18 09:20 Dose: 10 mg Atorvastatin Calcium (Lipitor) 10 mg PO DIN [facility] Last Admin: 06/09/18 17:34 Dose: 10 mg Benzonatate (Tessalon Perles) 200 mg PO TID PRN PRN Reason: Cough Last Admin: 06/09/18 12:00 Dose: 200 mg Budesonide (Pulmicort Respules) 0.5 mg IH [id number] [facility] Last Admin: 06/10/18 08:21 Dose: 0.5 mg Calcium Acetate (Phoslo) 667 mg PO WM [facility] Last Admin: 06/10/18 11:37 Dose: 667 mg Darbepoetin José Miguel (Aranesp) 100 mcg SC QWK [facility] Last Admin: 06/08/18 12:09 Dose: 100 mcg Ergocalciferol (Drisdol 50,000 Intl Units Cap) 1 cap PO Q7D [facility] Last Admin: 06/08/18 11:59 Dose: 1 cap Ferrous Gluconate (Fergon) 324 mg PO TID [facility] Last Admin: 06/10/18 14:08 Dose: 324 mg Furosemide (Lasix) 80 mg PO BID [facility] Last Admin: 06/10/18 09:18 Dose: 80 mg Ceftaroline Fosamil 200 mg/ (Sodium Chloride) 50 mls @ 50 mls/hr IVPB Q12H [facility]; Protocol Stop: 06/16/18 05:19 Last Admin: 06/10/18 06:01 Dose: 50 mls/hr Insulin Human Regular (Humulin R Low) 0 units SC ACHS [facility]; Protocol Magnesium Oxide (Mag-Ox) 400 mg PO DAILY [facility] Last Admin: 06/10/18 14:08 Dose: 400 mg Methylprednisolone (Solu-Medrol) 30 mg IV Q12 [facility] Pantoprazole Sodium (Protonix Ec Tab) 40 mg PO 0600 [facility] Last Admin: 06/10/18 06:01 Dose: 40 mg Sodium Bicarbonate (Sodium Bicarbonate Tab) 650 mg PO BID [facility] Last Admin: 06/10/18 09:20 Dose: 650 mg Tamsulosin HCl (Flomax) 0.4 mg PO DAILY [facility] Last Admin: 06/10/18 09:18 Dose: 0.4 mg Thiamine HCl (Vitamin B1 Tab) 100 mg PO DAILY [facility] Last Admin: 06/10/18 09:21 Dose: 100 mg Vitamin B Complex/Vit C/Folic Acid (Nephro-Rober) 1 tab PO 0800 [facility] Last Admin: 06/10/18 07:59 Dose: 1 tab Warfarin Sodium (Coumadin) 5 mg PO DAILY [facility]; Protocol Last Admin: 06/10/18 09:18 Dose: 5 mg - Labs Labs: 06/10/18 11:20 06/10/18 11:20 PT 33.2 SECONDS (9.4-12.5) H 06/09/18 10:25 INR 2.83 06/09/18 10:25 APTT 42.4 Seconds (25.1-36.5) H 06/07/18 18:45
--- NOTE | 2018-06-10 17:11 | CP.PCM.PN ---
Subjective - Date & Time of Evaluation Date of Evaluation: 06/10/18 Time of Evaluation: 16:00 - Subjective Subjective: Infectious Disease Follow Up: June 10, 2018 82 yo male seen in my office on afternoon of 06/07/2018 for follow up on the wounds and management of antibiotics while patient is receiving care and antibiotics at [facility] [place]. The patient with wound cultures that grew Serratia, Proteus, and MRSA from cultures from March to 2017. Treatment with Home IV of Ceftriaxone and Vancomycin IV but unfortunately, the patient developed renal insufficiency and did not recover renal function to this point in time. The patient had laboratories done at [facility] facility the morning of 06/07/2018. Hgb was down to 6.5. Creatinine up to 7.9. For the past month, the patient's Hgb was between 7 and 8.5 as per daughter. The patient was on Teflaro for antibiotic treatment due to the renal issues. He was discharged from [facility] on 05/13/2018 with Teflaro to [facility] in [place]. The right leg wound is still a stage II-III ulceration with granualation tissue and mild serosaguinous drainage. No pus. This ulceration has been very slow to heal. Creatinine was 4.8 and Hgb 11.4 after 2U of PRBCs given. Breathing of the patient improved. Noted that stool occult blood is positive. Still poor urinary output despite what the patient says and believes. Today Creatinine is 4.7. Hgb is 9.7 but WBC is 3.0 today. Objective - Vital Signs/Intake and Output Vital Signs (last 24 hours): Temp Pulse Resp BP Pulse Ox 97.3 F L 80 18 132/62 95 06/10/18 12:00 06/10/18 12:00 06/10/18 12:00 06/10/18 12:00 06/10/18 15:04 Intake and Output: 06/10/18 06/10/18 06:59 18:59 Intake Total 1370 Balance 1370 - Medications Medications: Current Medications Albuterol/Ipratropium (Duoneb 3 Mg/0.5 Mg (3 Ml) Ud) 3 ml IH Q2H PRN PRN Reason: Shortness of Breath Last Admin: 06/09/18 19:20 Dose: 3 ml Amlodipine Besylate (Norvasc) 10 mg PO DAILY [facility] Last Admin: 06/10/18 09:20 Dose: 10 mg Atorvastatin Calcium (Lipitor) 10 mg PO DIN [facility] Last Admin: 06/09/18 17:34 Dose: 10 mg Benzonatate (Tessalon Perles) 200 mg PO TID PRN PRN Reason: Cough Last Admin: 06/09/18 12:00 Dose: 200 mg Budesonide (Pulmicort Respules) 0.5 mg IH [id number] [facility] Last Admin: 06/10/18 08:21 Dose: 0.5 mg Calcium Acetate (Phoslo) 667 mg PO WM [facility] Last Admin: 06/10/18 11:37 Dose: 667 mg Darbepoetin José Miguel (Aranesp) 100 mcg SC QWK [facility] Last Admin: 06/08/18 12:09 Dose: 100 mcg Ergocalciferol (Drisdol 50,000 Intl Units Cap) 1 cap PO Q7D [facility] Last Admin: 06/08/18 11:59 Dose: 1 cap Ferrous Gluconate (Fergon) 324 mg PO TID [facility] Last Admin: 06/10/18 14:08 Dose: 324 mg Furosemide (Lasix) 80 mg PO BID [facility] Last Admin: 06/10/18 09:18 Dose: 80 mg Ceftaroline Fosamil 200 mg/ (Sodium Chloride) 50 mls @ 50 mls/hr IVPB Q12H [facility]; Protocol Stop: 06/16/18 05:19 Last Admin: 06/10/18 06:01 Dose: 50 mls/hr Insulin Human Regular (Humulin R Low) 0 units SC ACHS [facility]; Protocol Magnesium Oxide (Mag-Ox) 400 mg PO DAILY [facility] Last Admin: 06/10/18 14:08 Dose: 400 mg Methylprednisolone (Solu-Medrol) 30 mg IV Q12 [facility] Pantoprazole Sodium (Protonix Ec Tab) 40 mg PO 0600 [facility] Last Admin: 06/10/18 06:01 Dose: 40 mg Sodium Bicarbonate (Sodium Bicarbonate Tab) 650 mg PO BID [facility] Last Admin: 06/10/18 09:20 Dose: 650 mg Tamsulosin HCl (Flomax) 0.4 mg PO DAILY [facility] Last Admin: 06/10/18 09:18 Dose: 0.4 mg Thiamine HCl (Vitamin B1 Tab) 100 mg PO DAILY [facility] Last Admin: 06/10/18 09:21 Dose: 100 mg Vitamin B Complex/Vit C/Folic Acid (Nephro-Rober) 1 tab PO 0800 [facility] Last Admin: 06/10/18 07:59 Dose: 1 tab Warfarin Sodium (Coumadin) 5 mg PO DAILY [facility]; Protocol Last Admin: 06/10/18 09:18 Dose: 5 mg - Labs Labs: 06/10/18 11:20 06/10/18 11:20 PT 33.2 SECONDS (9.4-12.5) H 06/09/18 10:25 INR 2.83 06/09/18 10:25 APTT 42.4 Seconds (25.1-36.5) H 06/07/18 18:45 - Constitutional Appears: Non-toxic, No Acute Distress, Chronically Ill - Head Exam Head Exam: ATRAUMATIC, NORMOCEPHALIC - Eye Exam Eye Exam: EOMI, PERRL Pupil Exam: NORMAL ACCOMODATION, PERRL - ENT Exam ENT Exam: Mucous Membranes Moist, Normal External Ear Exam, TM's Normal Bilaterally - Neck Exam Neck Exam: Full ROM, Normal Inspection - Respiratory Exam Respiratory Exam: Clear to Ausculation Bilateral, NORMAL BREATHING PATTERN. absent: Rales, Rhonchi, Wheezes - Cardiovascular Exam Cardiovascular Exam: REGULAR RHYTHM, RRR, +S1, +S2 - Extremities Exam Extremities Exam: Full ROM Additional comments: right lower leg with stage II-III ulcerations that is mostly dry with mild serosaguinous drainage. Walk with cane. - Neurological Exam Neurological Exam: Alert, Awake, CN II-XII Intact, Oriented x3 - Psychiatric Exam Psychiatric exam: Normal Affect, Normal Mood - Skin Skin Exam: Normal Color Additional comments: as above. right lower leg with stage II-III ulcerations that is mostly dry with mild serosaguinous drainage. Assessment and Plan - Assessment and Plan (Free Text) Assessment: 82 yo [place] male seen in my office for follow up for management of Teflaro for the patient wounds in the right lower leg. The patient had mild serosaguinous drainage. [facility] [place] had drawn labs in the AM with results of Hgb of 6.5 and Creatinine of 7.9. Discussed these values with the patient and the patient's daughter. They were amendable to admission to [facility]. Discussed case with Dr. Garcia. Restarting Teflaro as the patient has completed over 4.5 weeks of treatment out of 6 weeks. WBC at 7.0 yesterday morning. Received 2U PRBCs in total. Creatinine of 4.7 slight improvement from 4.8. WBC currently 9.7 from 11.4 yesterday. Still poor urinary output despite what the patient is stating. 200 cc for the last recorded shift so far. WBC did drop to 3.0... recheck value in AM. Discussed renal function with the patient and his daughter in my office, They may be amendable for kidney biopsy now. Monitoring Hgb. Supportive care. Thank you for allowing me to participate in the care of this patient, we will follow with you.
[2018-06-10] MEDS: Insulin Reg-LOW-Coverage SC SCH ×2 (17:38→21:45)
[2018-06-10] MEDS: Albuterol-Ipratrop 3 mg / 0.5 (3 ml) UD IH PRN (19:31)
--- NOTE | 2018-06-10 22:35 | PN ---
DATE: 06/10/2018 SUBJECTIVE: The patient is 82 years old. Seen and examined. Doing well. He states his shortness of breath is much better, but he is still short of breath. He did respond well to IV steroid and high dose of Lasix. PHYSICAL EXAMINATION: VITAL SIGNS: He is afebrile, pulse 80, respirations 18, and blood pressure 132/62. LUNGS: Bilateral soft crackle in the upper lung region. He has expiratory rhonchi posteriorly. HEART: S1 and S2 audible. ABDOMEN: Soft. Nontender. No rebound. No guarding. NEUROLOGIC: The patient is awake, alert and oriented. Communicative. EXTREMITIES: His terrazas is in the dressing. LABORATORY EXAMINATION: WBC 3, hemoglobin 9.7, hematocrit 30.8, and platelet of 95. PT is 33.2, INR 2.83. Chemistry: Sodium 136, potassium 4.5, chloride 102, CO2 of 27, BUN 47, creatinine 4.7, blood sugar 227. Leg wound cultures are negative. ASSESSMENT AND PLAN: 1. Symptomatic anemia. 2. Chronic obstructive pulmonary disease exacerbation. 3. Congestive heart failure with pulmonary edema. 4. Acute on chronic kidney disease. 5. Right terrazas ulcer that was previously positive for Serratia. Plan is that we will taper down steroids to 30 mg twice a day. Continue nebulizer treatment. He is on Coumadin; we will continue that. We will re-evaluate patient in the morning. If he remained stable, he will be transferred back to [facility] tomorrow. Aquilino Garcia MD
[2018-06-10 23:54] VITALS: O2SAT 96
[2018-06-11] MEDS: Pantoprazole 40 mg EC Tab PO SCH (05:51)
[2018-06-11 07:07] LABS: GRAN # 4.48 (1.4-6.5); GRAN % 85.6 % (50.0-68.0); HEMOGLOBIN 9.3 g/dL (14.0-18.0); LYMPH # 0.6 (1.2-3.4); LYMPH % 11.5 % (22.0-35.0); MEAN CELL VOLUME 89.2 fl (80.0-105.0); MEAN CORPUSCULAR HGB CONC 31.4 g/dl (31.0-37.0); MEAN PLATELET VOLUME 10.2 fl (7.0-11.0); MONO # 0.2 (0.1-0.6); MONO % 2.9 % (1.0-6.0); RBC 3.32 10^6/uL (3.5-6.1); RED CELL DISTRIBUTION WIDTH 16.7 % (11.5-14.5); WHITE BLOOD COUNT 5.2 10^3/uL (4.5-11.0)
[2018-06-11 07:40] LABS: ALB/GLOB RATIO 0.9 (1.1-1.8); ALBUMIN 3.3 g/dL (3.0-4.8); CALCIUM 8.4 mg/dL (8.4-10.5)
[2018-06-11] MEDS: Budesonide 0.5 mg/2 ml Inhal Susp UD IH SCH (07:51)
[2018-06-11 08:41] LABS: PROTHROMBIN TIME 41.6 SECONDS (9.4-12.5)
[2018-06-11 08:42] LABS: INR 3.53
--- NOTE | 2018-06-11 08:52 | CP.PCM.PN ---
Subjective - Date & Time of Evaluation Date of Evaluation: 06/11/18 Time of Evaluation: 08:49 - Subjective Subjective: Podiatry progress note for Dr. Pham/ Hany 82 yo male with pmhx of hypertension, COPD, gastritis and history of DVT presented to the ED yesterday for anemia and renal failure. Patient has a wound on the lateral aspect of the leg that has been present for about 4 months. Denies acute overnight events. Denies pain to lower extremity. Denies f/n/v/sob. Objective - Vital Signs/Intake and Output Vital Signs (last 24 hours): Temp Pulse Resp BP Pulse Ox 97.8 F 82 20 124/59 L 96 06/11/18 06:00 06/11/18 06:00 06/11/18 06:00 06/11/18 06:00 06/10/18 23:52 Intake and Output: 06/11/18 06/11/18 06:59 18:59 Intake Total 530 Balance 530 - Medications Medications: Current Medications Albuterol/Ipratropium (Duoneb 3 Mg/0.5 Mg (3 Ml) Ud) 3 ml IH Q2H PRN PRN Reason: Shortness of Breath Last Admin: 06/10/18 19:31 Dose: 3 ml Amlodipine Besylate (Norvasc) 10 mg PO DAILY [facility] Last Admin: 06/10/18 09:20 Dose: 10 mg Atorvastatin Calcium (Lipitor) 10 mg PO DIN [facility] Last Admin: 06/10/18 17:40 Dose: 10 mg Benzonatate (Tessalon Perles) 200 mg PO TID PRN PRN Reason: Cough Last Admin: 06/10/18 21:28 Dose: 200 mg Budesonide (Pulmicort Respules) 0.5 mg IH [id number] [facility] Last Admin: 06/11/18 07:51 Dose: 0.5 mg Calcium Acetate (Phoslo) 667 mg PO WM [facility] Last Admin: 06/10/18 17:40 Dose: 667 mg Darbepoetin José Miguel (Aranesp) 100 mcg SC QWK [facility] Last Admin: 06/08/18 12:09 Dose: 100 mcg Ergocalciferol (Drisdol 50,000 Intl Units Cap) 1 cap PO Q7D [facility] Last Admin: 06/08/18 11:59 Dose: 1 cap Ferrous Gluconate (Fergon) 324 mg PO TID [facility] Last Admin: 06/10/18 17:38 Dose: 324 mg Furosemide (Lasix) 80 mg PO BID [facility] Last Admin: 06/10/18 17:39 Dose: 80 mg Ceftaroline Fosamil 200 mg/ (Sodium Chloride) 50 mls @ 50 mls/hr IVPB Q12H [facility]; Protocol Stop: 06/16/18 05:19 Last Admin: 06/11/18 05:44 Dose: 50 mls/hr Insulin Human Regular (Humulin R Low) 0 units SC ACHS [facility]; Protocol Last Admin: 06/10/18 21:45 Dose: Not Given Magnesium Oxide (Mag-Ox) 400 mg PO DAILY [facility] Last Admin: 06/10/18 14:08 Dose: 400 mg Methylprednisolone (Solu-Medrol) 30 mg IV Q12 [facility] Last Admin: 06/10/18 21:29 Dose: 30 mg Pantoprazole Sodium (Protonix Ec Tab) 40 mg PO 0600 [facility] Last Admin: 06/11/18 05:51 Dose: 40 mg Sodium Bicarbonate (Sodium Bicarbonate Tab) 650 mg PO BID [facility] Last Admin: 06/10/18 17:40 Dose: 650 mg Tamsulosin HCl (Flomax) 0.4 mg PO DAILY [facility] Last Admin: 06/10/18 09:18 Dose: 0.4 mg Thiamine HCl (Vitamin B1 Tab) 100 mg PO DAILY [facility] Last Admin: 06/10/18 09:21 Dose: 100 mg Vitamin B Complex/Vit C/Folic Acid (Nephro-Rober) 1 tab PO 0800 [facility] Last Admin: 06/10/18 07:59 Dose: 1 tab Warfarin Sodium (Coumadin) 5 mg PO DAILY [facility]; Protocol Last Admin: 06/10/18 09:18 Dose: 5 mg - Labs Labs: 06/11/18 06:30 06/11/18 06:30 PT 41.6 SECONDS (9.4-12.5) H 06/11/18 08:00 INR 3.53 H* 06/11/18 08:00 APTT 42.4 Seconds (25.1-36.5) H 06/07/18 18:45 - Constitutional Appears: Well, Non-toxic, No Acute Distress - Head Exam Head Exam: ATRAUMATIC, NORMOCEPHALIC - Eye Exam Eye Exam: Normal appearance Pupil Exam: NORMAL ACCOMODATION - ENT Exam ENT Exam: Mucous Membranes Moist - Extremities Exam Additional comments: RLE focused exam Vasc: DP/PT 2/4. Skin temperature warm to warm from proximal to distal WNL. Cap refill < 3 seconds to all digits. No edema noted to right leg at this time Neuro: Epicritic and protective sensation grossly intact b/l Derm: Ulcer noted on the right lateral aspect of the leg with 100% granular base. Hypergranular base. No pus, no purulent discharge or drainage, no clinical signs of infection. minimal periwound erythema. MSK: Minimal POP at the periwound site. ROM WNL at all major joints. Muscle power intact 5/5 in all major muscle groups. No other gross deformities noted - Neurological Exam Neurological Exam: Alert, Awake, Oriented x3 Assessment and Plan - Assessment and Plan (Free Text) Assessment: 82M with pmhx of hypertension, COPD, gastritis and history of DVT evaluated for right lower leg wound Plan: Patient seen and evaluated at bedside with Dr. Pham Afebrile, absent leukocytosis Dressing taken down, wound cleansed sterile saline, dressed with adaptic maxorb and DSD Wound cx taken- no growth after 48 hours Continue management per medicine Continue IV antibiotics Will continue to follow the patient while in house
--- NOTE | 2018-06-11 09:34 | RAD ---
Date of service: 06/11/2018 HISTORY: re eval COMPARISON: 06/09/2018 FINDINGS: LUNGS: PLEURA: Right lower lobe infiltrate and right-sided pleural effusion CARDIOVASCULAR: Aortic calcification Normal cardiac size. No pulmonary vascular congestion. OSSEOUS STRUCTURES: No significant abnormalities. VISUALIZED UPPER ABDOMEN: Normal. OTHER FINDINGS: None. IMPRESSION: Right lower lobe infiltrate and right-sided pleural effusion
[2018-06-11] MEDS ORDERED: Magnesium Oxide 400 mg Tab UD PO SCH (10:00)
[2018-06-11] MEDS: Multivitamin Vitamin B Complex (Nephro-Vite) Tab PO SCH (10:11)
[2018-06-11] MEDS: MethylPREDNISolone 40 mg Vial IV SCH (10:17)
[2018-06-11 12:45] VITALS: BP 123/64; RESP 19; TEMP 97.5
--- NOTE | 2018-06-11 13:42 | CP.PCM.PN ---
Subjective - Date & Time of Evaluation Date of Evaluation: 06/11/18 Time of Evaluation: 13:42 - Subjective Subjective: Nephrology Consultation Note: Assessment: stable acute on chronic anemia likely multi-factorial pulm edema Recent acute Kidney Injury (N17.9) possibly AIN due to abx as also with peripheral eosinophilia and/or vancomycin nephrotoxicity. 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 Pt and daughter had refused for dialysis/kidney biopsy during last admission. 06/09/18: met her in room and discussed about kidney biopsy. she will d/w father and decide d/w daughter, to anticipate dialysis need in near future Hypertension control with meds as ordered. Maintain hemodynamics stable. Avoid hypotension. Patient not on ACEI/ARB due to recent HARSH. Monitor Input/Output, daily weights and renal function with basic metabolic panel continue with weekly Vit D, iron, MVI, phos binders and sodium bicarb. Added Aransep 100 mcg weekly s/p blood transfusion on PPI and thiamine as well on flomax as PVR 168 mL Increase lasix 80 mg orally twice daily. had recent heme eval for anemia and paraproteinemia Dose meds/antibiotics for reduced GFR. Avoid fleets enema/magnesium based laxatives. Avoid nephrotoxins/NSAIDs/ iodinated contrast (unless needed emergently) Glycemic control Further work up/management as per primary team pt stable for d/c from renal perspective when planned, with 1 week outpt renal follow up Thanks for allowing me to participate in care of your patient. Will follow patient with you. Please call if any Qs. had d/w team Dr Froilan Spears Office: [phone] CC; Anemia Reason for consult: Acute Kidney Injury and kidney disease HPI: Pt is a 82 M with hx of HTN, COPD, DVT on coumadin, etoh/smoker (quit 6 months ago), anemia, CKD 3 with baseline cr 1.4-1.5 with superimpsed HARSH with cr up to 6 range recently (pt and daughter refused for kidney biopsy and dialysis) presented with complaints of SOB on exertion, anemia abnormal kidney fxn Denies OTC/herbal meds or NSAIDs No recent iodinated contrast exposure. No obvious episodes of low BP. c/o rt leg swelling ROS: Cardiovascular: No chest pain. Pulmonary: No shortness of breath now but had it on exertion. better now Gastrointestinal: denies abdominal pain No nausea. No vomiting. says stool color as brown Genitourinary: No pain while urinating. Denies blood in urine. All other negative except as mentioned in HPI Physical Examination: General Appearance: Comfortable, in no acute respiratory distress, co-operative. somewhat cachexic Vitals reviewed and noted as below Head; Atraumatic, normocephalic ENT: no ulcers no thrush. Tongue is midline. Oropharynx: no rash or ulcers. EYES: Pupils are equal, round and reactive to light accommodation. Eye muscles and extraocular movement intact. Sclera is anicteric. Neck; supple no lymphadenopathy, no thyromegaly or bruit Lungs: Normal respiratory rate/effort. Breath sounds bilateral clearer Heart: Normal rate. s1s2 normal. No rub or gallop. Extremities: no edema RLE dressing + Neurological: Patient is alert, awake and oriented to person, place and time. No focal deficit. Strength bilateral appropriate and equal Skin: Warm and dry. Normal turgor. No rash. Palpitation: Normal elasticity for age Abdomen: Abdomen is soft. Bowel sounds +. There is no abdominal tenderness, no guarding/rigidity ? hepatomegaly Psych: lack insight and normal affect/mood MSK: no joint tenderness or swelling. Digits and nails normal, no deformity : kidney not palpable Labs/imaging reviewed. Past medical history, past surgical history, family history, social history, allergy reviewed and noted as below Family hx: no hx of CKD. Rest non-contributory Vit D <12.8 PTh 45 TSAt 55% Ferritin 78 FOB + SPEP + but k/l ration 2.1 urine alb/cr 44 mg/g Objective - Vital Signs/Intake and Output Vital Signs (last 24 hours): Temp Pulse Resp BP Pulse Ox 97.5 F L 80 19 123/64 96 06/11/18 12:00 06/11/18 12:00 06/11/18 12:00 06/11/18 12:00 06/10/18 23:52 Intake and Output: 06/11/18 06/11/18 06:59 18:59 Intake Total 530 Balance 530 - Medications Medications: Current Medications Albuterol/Ipratropium (Duoneb 3 Mg/0.5 Mg (3 Ml) Ud) 3 ml IH Q2H PRN PRN Reason: Shortness of Breath Last Admin: 06/10/18 19:31 Dose: 3 ml Amlodipine Besylate (Norvasc) 10 mg PO DAILY [facility] Last Admin: 06/11/18 10:12 Dose: 10 mg Atorvastatin Calcium (Lipitor) 10 mg PO DIN [facility] Last Admin: 06/10/18 17:40 Dose: 10 mg Benzonatate (Tessalon Perles) 200 mg PO TID PRN PRN Reason: Cough Last Admin: 06/10/18 21:28 Dose: 200 mg Budesonide (Pulmicort Respules) 0.5 mg IH [id number] [facility] Last Admin: 06/11/18 07:51 Dose: 0.5 mg Calcium Acetate (Phoslo) 667 mg PO WM [facility] Last Admin: 06/11/18 12:29 Dose: 667 mg Darbepoetin José Miguel (Aranesp) 100 mcg SC QWK [facility] Last Admin: 06/08/18 12:09 Dose: 100 mcg Ergocalciferol (Drisdol 50,000 Intl Units Cap) 1 cap PO Q7D [facility] Last Admin: 06/08/18 11:59 Dose: 1 cap Ferrous Gluconate (Fergon) 324 mg PO TID [facility] Last Admin: 06/11/18 10:18 Dose: 324 mg Furosemide (Lasix) 80 mg PO BID [facility] Last Admin: 06/11/18 10:18 Dose: 80 mg Ceftaroline Fosamil 200 mg/ (Sodium Chloride) 50 mls @ 50 mls/hr IVPB Q12H [facility]; Protocol Stop: 06/16/18 05:19 Last Admin: 06/11/18 05:44 Dose: 50 mls/hr Insulin Human Regular (Humulin R Low) 0 units SC ACHS [facility]; Protocol Last Admin: 06/10/18 21:45 Dose: Not Given Magnesium Oxide (Mag-Ox) 400 mg PO BID [facility] Last Admin: 06/11/18 10:19 Dose: 400 mg Pantoprazole Sodium (Protonix Ec Tab) 40 mg PO 0600 [facility] Last Admin: 06/11/18 05:51 Dose: 40 mg Prednisone (Prednisone Tab) 0 mg PO DAILY [facility]; Taper Stop: 06/21/18 09:59 Sodium Bicarbonate (Sodium Bicarbonate Tab) 650 mg PO BID [facility] Last Admin: 06/11/18 10:19 Dose: 650 mg Tamsulosin HCl (Flomax) 0.4 mg PO DAILY [facility] Last Admin: 06/11/18 10:18 Dose: 0.4 mg Thiamine HCl (Vitamin B1 Tab) 100 mg PO DAILY [facility] Last Admin: 06/11/18 10:19 Dose: 100 mg Vitamin B Complex/Vit C/Folic Acid (Nephro-Rober) 1 tab PO 0800 [facility] Last Admin: 06/11/18 10:11 Dose: 1 tab Warfarin Sodium (Coumadin) 4 mg PO 1800 [facility]; Protocol - Labs Labs: 06/11/18 06:30 06/11/18 06:30 PT 41.6 SECONDS (9.4-12.5) H 06/11/18 08:00 INR 3.53 H* 06/11/18 08:00 APTT 42.4 Seconds (25.1-36.5) H 06/07/18 18:45
--- NOTE | 2018-06-11 14:03 | CP.PCM.PN ---
Subjective - Date & Time of Evaluation Date of Evaluation: 06/11/18 Time of Evaluation: 13:30 - Subjective Subjective: Infectious Disease Follow Up: June 11, 2018 82 yo male seen in my office on afternoon of 06/07/2018 for follow up on the wounds and management of antibiotics while patient is receiving care and antibiotics at [facility] [place]. The patient with wound cultures that grew Serratia, Proteus, and MRSA from cultures from March to 2017. Treatment with Home IV of Ceftriaxone and Vancomycin IV but unfortunately, the patient developed renal insufficiency and did not recover renal function to this point in time. The patient had laboratories done at [facility] facility the morning of 06/07/2018. Hgb was down to 6.5. Creatinine up to 7.9. For the past month, the patient's Hgb was between 7 and 8.5 as per daughter. The patient was on Teflaro for antibiotic treatment due to the renal issues. He was [place] [facility] [place]13[place]2018 with Teflaro to [facility] in [place]. The right leg wound is still a stage II-III ulceration with granualation tissue and mild serosaguinous drainage. No pus. This ulceration has been very slow to heal. Creatinine was 4.8 and Hgb 11.4 after 2U of PRBCs given. Breathing of the patient improved. Noted that stool occult blood is positive. Still poor urinary output despite what the patient says and believes. Today Creatinine is 4.7. Hgb is 9.3 but WBC improved to 5.2 from 3.0 today. Objective - Vital Signs/Intake and Output Vital Signs (last 24 hours): Temp Pulse Resp BP Pulse Ox 97.5 F L 80 19 123/64 96 06/11/18 12:00 06/11/18 12:00 06/11/18 12:00 06/11/18 12:00 06/10/18 23:52 Intake and Output: 06/11/18 06/11/18 06:59 18:59 Intake Total 530 Balance 530 - Medications Medications: Current Medications Albuterol/Ipratropium (Duoneb 3 Mg/0.5 Mg (3 Ml) Ud) 3 ml IH Q2H PRN PRN Reason: Shortness of Breath Last Admin: 06/10/18 19:31 Dose: 3 ml Amlodipine Besylate (Norvasc) 10 mg PO DAILY [facility] Last Admin: 06/11/18 10:12 Dose: 10 mg Atorvastatin Calcium (Lipitor) 10 mg PO DIN [facility] Last Admin: 06/10/18 17:40 Dose: 10 mg Benzonatate (Tessalon Perles) 200 mg PO TID PRN PRN Reason: Cough Last Admin: 06/10/18 21:28 Dose: 200 mg Budesonide (Pulmicort Respules) 0.5 mg IH [id number] [facility] Last Admin: 06/11/18 07:51 Dose: 0.5 mg Calcium Acetate (Phoslo) 667 mg PO WM [facility] Last Admin: 06/11/18 12:29 Dose: 667 mg Darbepoetin José Miguel (Aranesp) 100 mcg SC QWK [facility] Last Admin: 06/08/18 12:09 Dose: 100 mcg Ergocalciferol (Drisdol 50,000 Intl Units Cap) 1 cap PO Q7D [facility] Last Admin: 06/08/18 11:59 Dose: 1 cap Ferrous Gluconate (Fergon) 324 mg PO TID [facility] Last Admin: 06/11/18 10:18 Dose: 324 mg Furosemide (Lasix) 80 mg PO BID [facility] Last Admin: 06/11/18 10:18 Dose: 80 mg Ceftaroline Fosamil 200 mg/ (Sodium Chloride) 50 mls @ 50 mls/hr IVPB Q12H [facility]; Protocol Stop: 06/16/18 05:19 Last Admin: 06/11/18 05:44 Dose: 50 mls/hr Insulin Human Regular (Humulin R Low) 0 units SC ACHS [facility]; Protocol Last Admin: 06/10/18 21:45 Dose: Not Given Magnesium Oxide (Mag-Ox) 400 mg PO BID [facility] Last Admin: 06/11/18 10:19 Dose: 400 mg Pantoprazole Sodium (Protonix Ec Tab) 40 mg PO 0600 [facility] Last Admin: 06/11/18 05:51 Dose: 40 mg Prednisone (Prednisone Tab) 0 mg PO DAILY [facility]; Taper Stop: 06/21/18 09:59 Sodium Bicarbonate (Sodium Bicarbonate Tab) 650 mg PO BID [facility] Last Admin: 06/11/18 10:19 Dose: 650 mg Tamsulosin HCl (Flomax) 0.4 mg PO DAILY [facility] Last Admin: 06/11/18 10:18 Dose: 0.4 mg Thiamine HCl (Vitamin B1 Tab) 100 mg PO DAILY [facility] Last Admin: 06/11/18 10:19 Dose: 100 mg Vitamin B Complex/Vit C/Folic Acid (Nephro-Rober) 1 tab PO 0800 [facility] Last Admin: 06/11/18 10:11 Dose: 1 tab Warfarin Sodium (Coumadin) 4 mg PO 1800 [facility]; Protocol - Labs Labs: 06/11/18 06:30 06/11/18 06:30 PT 41.6 SECONDS (9.4-12.5) H 06/11/18 08:00 INR 3.53 H* 06/11/18 08:00 APTT 42.4 Seconds (25.1-36.5) H 06/07/18 18:45 - Constitutional Appears: Non-toxic, No Acute Distress, Chronically Ill - Head Exam Head Exam: ATRAUMATIC, NORMOCEPHALIC - Eye Exam Eye Exam: EOMI, PERRL Pupil Exam: NORMAL ACCOMODATION, PERRL - ENT Exam ENT Exam: Mucous Membranes Moist, Normal External Ear Exam, TM's Normal Bilaterally - Neck Exam Neck Exam: Full ROM, Normal Inspection - Respiratory Exam Respiratory Exam: Clear to Ausculation Bilateral, NORMAL BREATHING PATTERN. absent: Rales, Rhonchi, Wheezes - Cardiovascular Exam Cardiovascular Exam: REGULAR RHYTHM, RRR, +S1, +S2 - GI/Abdominal Exam GI & Abdominal Exam: Soft, Normal Bowel Sounds. absent: Distended, Tenderness - Extremities Exam Extremities Exam: Full ROM Additional comments: right lower leg with stage II-III ulcerations that is mostly dry with mild serosaguinous drainage. Walk with cane. - Neurological Exam Neurological Exam: Alert, Awake, CN II-XII Intact, Oriented x3 - Psychiatric Exam Psychiatric exam: Normal Affect, Normal Mood - Skin Skin Exam: Normal Color Additional comments: as above. right lower leg with stage II-III ulcerations that is mostly dry with mild serosaguinous drainage. Assessment and Plan - Assessment and Plan (Free Text) Assessment: 82 yo [place] male seen in my office for follow up for management of Teflaro for the patient wounds in the right lower leg. The patient had mild serosaguinous drainage. [facility] [place] had drawn labs in the AM with results of Hgb of 6.5 and Creatinine of 7.9. Discussed these values with the patient and the patient's daughter. They were amendable to admission to [facility]. Discussed case with Dr. Garcia. Restarting Teflaro as the patient has completed over 4.5 weeks of treatment out of 6 weeks. Received 2U PRBCs in total. Creatinine of 4.7 slight improvement from 4.8. WBC currently 9.3 from 9.7 from 11.4 the last few days. Still poor urinary output despite what the patient is stating. 200 cc for the last recorded shift so far... he refused to allow checking of the urine output the last two days. WBC did drop to 3.0... rechecked value in AM. WBC now 5.2. Discussed renal function with the patient and his daughter in my office, They may be amendable for kidney biopsy now. Monitoring Hgb. Supportive care. Now on week 5 of Teflaro... about 7 days of treatment left. Thank you for allowing me to participate in the care of this patient, we will follow with you.
[2018-06-11 15:51] VITALS: PULSE 85
--- NOTE | 2018-06-11 17:59 | DS ---
CHIEF COMPLAINT: The patient is 82 years old, seen and examined. He came in because he was found to be anemic. His hemoglobin prior to coming to the hospital was 6.9 as per the physicians from acute rehab. The patient received blood transfusion. He was also found to have cough, congestion and wheezing. He was started on IV steroid. His Lasix was doubled to 80 mg twice a day, doing well. On examination today, he is awake, alert, oriented, communicative. PHYSICAL EXAMINATION: VITAL SIGNS: He is afebrile. Pulse 82, respirations 20, blood pressure 138/67. LUNGS: Bilateral occasional expiratory rhonchi. HEART: S1 and S2 audible. ABDOMEN: Soft, nontender. No rebound. No guarding. NEUROLOGIC: The patient is awake, alert, oriented, communicative. Right leg is in the dressing. LABORATORY EXAM: WBC 5.2, hemoglobin 9.3, hematocrit 29.6, platelets 110. PT 41.6, INR 3.53. Chemistry: Sodium 136, potassium 4.1, chloride 101, CO2 of 25, BUN 52, creatinine of 4.7, blood sugar of 195. ASSESSMENT AND PLAN: 1. Symptomatic anemia. 2. Pulmonary edema secondary to renal insufficiency. 3. Hypertension. 4. Hyperlipidemia. 5. History of right leg deep venous thrombosis. 6. Chronic right leg ulcer. Had Serratia marcescens and MRSA mood from 12/2017 up till 05/2018. Was on vancomycin, but that was discontinued. Currently, he is on Teflaro. He needs to finish his 6 week of antibiotic, but currently, he finished 4-1/2 week and he is going back to [facility] to complete his course of antibiotic. We will hold Coumadin today, we will resume for tomorrow and follow up PT/INR. The patient will be followed in the [facility] to monitor his kidney function, H&H and PT/INR. Wound care is done there and after he finished his antibiotic, he will be discharged. Aquilino Garcia MD [facility] # [id number]
== END 2018-06-11 16:43 | DRG 812 ==
LOC: ED 17:05 → ERH 19:54 → 2RNO 21:03
PROVIDERS: ADMIT Internal Medicine; ATTEND Internal Medicine
PROC: 30233N1 Transfusion of Nonautologous Red Blood Cells into Peripheral Vein, Percutaneous Approach (ICD-10-PCS; principal; 2018-06-08)
PROC: 3E0F7GC Introduction of Other Therapeutic Substance into Respiratory Tract, Via Natural or Artificial Opening (ICD-10-PCS; 2018-06-09)
DX: D64.9 Anemia, unspecified (principal); I13.0 Hypertensive heart and chronic kidney disease with heart failure and stage 1 through stage 4 chronic kidney disease, or unspecified chronic kidney disease; L97.819 Non-pressure chronic ulcer of other part of right lower leg with unspecified severity; N17.9 Acute kidney failure, unspecified; J44.1 Chronic obstructive pulmonary disease with (acute) exacerbation; I50.9 Heart failure, unspecified; N18.3 Chronic kidney disease, stage 3 (moderate); I73.9 Peripheral vascular disease, unspecified; E55.9 Vitamin D deficiency, unspecified; E78.00 Pure hypercholesterolemia, unspecified; K29.70 Gastritis, unspecified, without bleeding; Z86.718 Personal history of other venous thrombosis and embolism; Z79.01 Long term (current) use of anticoagulants; Z87.11 Personal history of peptic ulcer disease; Z87.891 Personal history of nicotine dependence

== ENCOUNTER 2018-07-27 15:52 | Inpatient (IN) | payer MEDICARE, OTHER ==
--- NOTE | 2018-07-27 16:44 | ED PDOC ---
Arrival/HPI - General Chief Complaint: Weakness/Neurological Deficit Time Seen by Provider: 07/27/18 16:21 Historian: Patient - History of Present Illness Narrative History of Present Illness (Text): 07/27/18 16:42 82yr old male with hx of renal failure, CHF, GI bleed, anemia requiring transfusion presents today with a 2-week history of generalized weakness. Patient denies trauma or injury. Patient denies headaches dizziness or weakness. Patient denies chest pain or shortness of breath. Patient denies abdominal pain. No nausea vomiting diarrhea or constipation. He denies melena. Patient denies urinary symptoms. Patient states he is being followed by the wound care center for a wound to the right leg that was just dressed today by Dr. Pham. Past Medical History - Provider Review Nursing Documentation Reviewed: Yes - Travel History Have you recently traveled outside [place] w/in the past 3 mons?: No - Infectious Disease Hx of Infectious Diseases: None - Tetanus Immunization Tetanus Immunization: Unknown - Cardiac Hx Cardiac Disorders: Yes Hx Congestive Heart Failure: Yes Hx Hypertension: Yes Hx Peripheral Vascular Disease: Yes - Pulmonary Hx Respiratory Disorders: Yes Hx Chronic Obstructive Pulmonary Disease (COPD): Yes - Neurological Hx Neurological Disorder: No - HEENT Hx HEENT Disorder: Yes Hx Cataracts: Yes - Renal Hx Renal Disorder: Yes Hx Renal Failure: Yes - Endocrine/Metabolic Hx Endocrine Disorders: No - Hematological/Oncological Hx Blood Disorders: Yes Hx Anemia: Yes - Integumentary Hx Dermatological Disorder: Yes Hx Cellulitis: Yes - Musculoskeletal/Rheumatological Hx Musculoskeletal Disorders: Yes Hx Arthritis: Yes Hx Unsteady Gait: Yes - Gastrointestinal Hx Gastroesophageal Reflux: Yes - Genitourinary/Gynecological Hx Genitourinary Disorders: Yes Hx Prostate Problems: Yes - Psychiatric Hx Psychophysiologic Disorder: Yes Hx Anxiety: Yes Hx Depression: Yes Hx Substance Use: No - Past Surgical History Past Surgical History: No Previous - Surgical History Other/Comment: s/p skin graft to RT lower extremity - Anesthesia Hx Anesthesia Reactions: No Hx Malignant Hyperthermia: No - Suicidal Assessment Feels Threatened In Home Enviroment: No Family/Social History - Physician Review Nursing Documentation Reviewed: Yes Family/Social History: Unknown Family HX Smoking Status: Never Smoked Hx Alcohol Use: No Hx Substance Use: No Hx Substance Use Treatment: No Allergies/Home Meds Allergies/Adverse Reactions: Allergies No Known Allergies Allergy (Verified 07/27/18 16:02) Home Medications: Home Meds Medication Instructions Recorded Confirmed amLODIPine [Norvasc] 5 mg PO DAILY 07/27/18 07/27/18 Review of Systems - Review of Systems Constitutional: Fatigue. absent: Fevers ENT: absent: Sore Throat, Sinus Congestion Respiratory: absent: SOB, Cough Cardiovascular: absent: Chest Pain, Palpitations Gastrointestinal: Anorexia. absent: Abdominal Pain, Constipation, Diarrhea, Nausea, Vomiting, Hematochezia, Hematemesis Genitourinary Male: absent: Dysuria, Frequency, Hematuria Musculoskeletal: absent: Arthralgias, Back Pain, Neck Pain Skin: absent: Rash, Pruritis Neurological: absent: Headache, Dizziness Physical Exam Vital Signs Reviewed: Yes Vital Signs Temp Pulse Resp BP Pulse Ox 07/27/18 16:07 98.7 F 100 H 17 149/71 100 Temperature: Afebrile Blood Pressure: Normal Pulse: Tachycardic Respiratory Rate: Normal Appearance: Positive for: Well-Appearing, Non-Toxic, Comfortable Pain Distress: None Mental Status: Positive for: Alert and Oriented X 3 - Systems Exam Head: Present: Atraumatic Mouth: Present: Moist Mucous Membranes Neck: Present: Normal Range of Motion Respiratory/Chest: Present: Clear to Auscultation, Good Air Exchange. No: Respiratory Distress, Accessory Muscle Use Cardiovascular: Present: Regular Rate and Rhythm, Normal S1, S2. No: Murmurs Abdomen: No: Tenderness, Distention, Rebound, Guarding Back: Present: Normal Inspection Upper Extremity: Present: Normal ROM Lower Extremity: Present: Normal ROM, Other (dressing noted to right leg from tibial tuberosity to foot. ) Neurological: Present: GCS=15, Speech Normal Skin: Present: Warm, Dry, Normal Color Psychiatric: Present: Alert, Oriented x 3 Medical Decision Making ED Course and Treatment: 07/27/18 18:56 82-year-old male with generalized weakness difficulty with ambulation and failure to thrive. CBC: Hemoglobin 9.7 CMP elevated BUN and creatinine Troponin within normal limits EKG shows normal sinus rhythm at 93 bpm right bundle branch block QTC [address] elevations Chest x-ray:FINDINGS: LUNGS: Resolved right lower lobe infiltrate. Faint infiltrate/scarring in the right upper lobe improved. PLEURA: Resolution of previously identified right pleural effusion. CARDIOVASCULAR: No atherosclerotic calcification present Normal. OSSEOUS STRUCTURES: No significant abnormalities. VISUALIZED UPPER ABDOMEN: Normal. OTHER FINDINGS: None. IMPRESSION: Interval improvement in right lower lobe and to lesser extent right upper lobe infiltrates. Resolved right pleural effusion. Blood cultures pending Urine cultures pending Case was discussed with the patient's clammer Dr. Pham. He states that the patient was seen in the wound care center today and that the wound is healing well and there is no concern for infection within the wound of the right lower leg. He states he was more concerned about dehydration and failure to thrive. Case was discussed with Dr. Garcia in depth. Will admit to [facility] for failure to thrive, renal insufficiency, difficulty with ambulation, dehydration. Impression: Renal insufficiency, failure to thrive, dehydration, difficulty with ambulation Admit to [facility] - RAD Interpretation Radiology Orders: 07/27/18 16:37 CHEST PORTABLE [RAD] Stat Disposition/Present on Arrival - Present on Arrival Any Indicators Present on Arrival: No History of DVT/PE: No History of Uncontrolled Diabetes: No Urinary Catheter: No History of Decub. Ulcer: No History Surgical Site Infection Following: None - Disposition Have Diagnosis and Disposition been Completed?: Yes Diagnosis: Dehydration, Failure to thrive, Renal insufficiency Disposition: HOSPITALIZED Disposition Time: 18:59 Patient Plan: Admission Condition: FAIR Forms: Claim Maps (Thai)
[2018-07-27 16:53] LABS: VENOUS BLOOD GAS BASE EXCESS -3.7 mmol/L (0.0-2.0); VENOUS BLOOD GAS PO2 28 mm/Hg (30-55); VENOUS BLOOD PH 7.31 (7.32-7.43)
[2018-07-27 17:05] LABS: ALB/GLOB RATIO 0.8 (1.1-1.8); ALBUMIN 4.2 g/dL (3.0-4.8); ALT/SGPT 10 U/L (7-56); AST/SGOT 43 U/L (17-59); BLOOD UREA NITROGEN 53 mg/dL (7-21); CALCIUM 9.2 mg/dL (8.4-10.5); GFR NON-AFRICAN AMERICAN 13
[2018-07-27 17:16] LABS: TROPONIN I < 0.01 ng/mL
[2018-07-27 17:21] LABS: BASO # 0.01 K/mm3 (0.0-2.0); BASO % 0.1 % (0.0-3.0); EOS # 0.1 (0.0-0.7); EOS % 1.6 % (1.5-5.0); HEMOGLOBIN 9.7 g/dL (14.0-18.0); LYMPH # 1.4 (1.2-3.4); LYMPH % 16.6 % (22.0-35.0); MEAN CORPUSCULAR HEMOGLOBIN 28.1 pg (25.0-35.0); MEAN CORPUSCULAR HGB CONC 32.3 g/dl (31.0-37.0); MEAN PLATELET VOLUME 8.9 fl (7.0-11.0); MONO # 0.5 (0.1-0.6); MONO % 5.9 % (1.0-6.0); RBC 3.45 10^6/uL (3.5-6.1); RED CELL DISTRIBUTION WIDTH 14.5 % (11.5-14.5); WHITE BLOOD COUNT 8.6 10^3/uL (4.5-11.0)
[2018-07-27 17:25] LABS: INR 1.34; PROTHROMBIN TIME 14.9 SECONDS (9.4-12.5)
--- NOTE | 2018-07-27 17:54 | RAD ---
Date of service: 07/27/2018 HISTORY: Weakness. COMPARISON: 06/11/2018. FINDINGS: LUNGS: Resolved right lower lobe infiltrate. Faint infiltrate/scarring in the right upper lobe improved. PLEURA: Resolution of previously identified right pleural effusion. CARDIOVASCULAR: No atherosclerotic calcification present Normal. OSSEOUS STRUCTURES: No significant abnormalities. VISUALIZED UPPER ABDOMEN: Normal. OTHER FINDINGS: None. IMPRESSION: Interval improvement in right lower lobe and to lesser extent right upper lobe infiltrates. Resolved right pleural effusion.
[2018-07-27 18:59] LABS: URINE BILIRUBIN NEGATIVE (NEGATIVE); URINE BLOOD NEGATIVE (NEGATIVE); URINE GLUCOSE (UA) NEGATIVE (NEGATIVE); URINE LEUKOCYTE ESTERASE NEGATIVE Leu/uL (NEGATIVE); URINE PROTEIN TRACE mg/dL (<30 mg/dL); URINE UROBILINOGEN 0.2 E.U./dL (<1 E.U./dL)
[2018-07-27 19:18] LABS: URINE APPEARANCE CLEAR (CLEAR); URINE COLOR YELLOW (YELLOW)
--- NOTE | 2018-07-27 21:10 | HP ---
DATE OF EXAM: 07/27/2018 HISTORY OF PRESENT ILLNESS: The patient is 82 years old, known to me from multiple previous admissions, first seen by Dr. Pham because of not looking well. He has lost a lot of weight, looks malnourished, complained of generalized weakness, complained of difficulty walking, no strength, decreased appetite. No chest pain. No shortness of breath. No history of fever or chills but has poor appetite. The patient was recently discharged on 06/11/2018, to [facility] to complete a course of antibiotics for chronic right terrazas wound when he was found to have Serratia marcescens and MRSA wound infection, he was treated with vancomycin. He had developed kidney failure, has been slowly improving. PAST MEDICAL HISTORY: Significant for; 1. Hypertension. 2. History of acute on chronic kidney disease. 3. Severe peripheral vascular disease. 4. History of COPD secondary to longtime smoking. 5. Angioplasty of right superficial femoral artery and proximal right anterior tibial atherectomy and angioplasty. 6. Drug-eluting balloon angioplasty of right popliteal artery, severe bilateral trifurcation and tibial occlusive disease and was found to have critical stenosis in the left popliteal artery, above knee. 7. History of DVT. 8. History of anemia status post multiple blood transfusions. ALLERGIES: NOT ALLERGIC TO ANY MEDICATION. MEDICATIONS AT HOME: He is on atorvastatin 10 mg daily, Norvasc 5 mg daily, multivitamin, Lasix 40 mg daily, ferrous sulfate, Flomax 0.4 mg daily, PhosLo 667 mg at meals, Brovana, thiamine, Protonix. SOCIAL HISTORY: He lives by himself. He has a daughter who usually keeps an eye on him. He used to be heavy drinker and heavy smoker. PHYSICAL EXAMINATION GENERAL: He is awake, alert, oriented, able to communicate. VITAL SIGNS: He is afebrile, pulse 78, respirations 17, blood pressure 149/71. LUNGS: Bilateral diffusely decreased breath sound. Expiratory rhonchi. HEART: S1 and S2 audible. ABDOMEN: Soft, nontender. No rebound. No guarding. NEUROLOGIC: The patient is awake, alert, oriented, able to communicate. LABORATORY DATA: WBC is 6.6, hemoglobin 9.7, hematocrit 30, platelets 212. PT 14.9, INR 1.34. Chemistry; sodium 133, potassium 5.2, chloride 99, CO2 of 22, BUN 53, creatinine 4.3, blood sugar 125. LFTs are within normal limits. Alk phos 305. CPK 23. Troponin 0.01. X-ray chest shows interval improvement in the lower lobe and to lesser extent right upper lobe infiltrate, resolved right pleural effusion. ASSESSMENT: 1. Acute on chronic kidney disease. 2. Dehydration. 3. Chronic right leg ulcer. 4. Malnutrition. 5. Significant weight loss and failure to thrive. 6. History of hypertension. 7. History of deep vein thrombosis. PLAN: I will order CT scan of the chest to rule out underlying pneumonia and start him on modified dose of Eliquis and monitor his blood pressure closely. Dr. Pham for consult. We will follow up his CBC, CMP in a.m. Wound care will be done by Podiatry. Aquilino Garcia MD
[2018-07-27] MEDS: Sodium Chloride 0.9% 500 ML IV SCH (22:03)
[2018-07-28 02:43] VITALS: BMI 17.2
[2018-07-28] MEDS: Arformoterol 15 mcg/2 ml Inh Sol IH SCH ×2 (07:14→21:18)
[2018-07-28] MEDS: Budesonide 0.25 mg/2 ml Inhal Susp UD IH SCH ×2 (07:14→21:18)
--- NOTE | 2018-07-28 08:14 | CARD ---
APPROVED REPORT Date of service: 07/27/2018 EKG Measurement Heart [id number] <Conclusion> Normal sinus rhythm Right bundle branch block Abnormal ECG
[2018-07-28] MEDS: Sodium Chloride 0.9% 500 ML IV SCH ×2 (09:53→11:43)
--- NOTE | 2018-07-28 10:41 | CP.PCM.CON ---
<RogerNikolas rodarte - Last Filed: 07/28/18 13:31> History of Present Illness - History of Present Illness History of Present Illness: Podiatry consult note for Dr. Pham 82 M with PMH of hypertension, COPD, gastritis, Renal impairment and history of DVT seen and evaluated for right lower leg wound. Patient has a wound on the lateral aspect of the leg and used to follow up with Dr. Pham. Patient was at the wound care center yesterday wher his wound got debrided, dressed with silvercell, DSD and Unna boot. Patient was sent to the ED as he was noticed to be dehydrated. Patient got admitted from the ED to the hospital. Patient denies any recent N/V/F/C/SOB/CP. Patient denies any other pedal complaints at this time. He denies any pain at the ulcer site PMHx - hypertension, COPD, gastritis and history of DVT PSHx - right lower leg surgical wound debridement and grafting. All - NKDA. Social Hx: Former heavy smoker, Denies EtOH use or Illicit drug use Review of Systems - Review of Systems Review of Systems: As per HPI. - Constitutional Constitutional: As Per HPI Past Patient History - Infectious Disease Hx of Infectious Diseases: None - Tetanus Immunizations Tetanus Immunization: Unknown - Past Social History Smoking Status: Never Smoked - CARDIAC Hx Cardiac Disorders: Yes Hx Congestive Heart Failure: Yes Hx Hypertension: Yes Hx Peripheral Vascular Disease: Yes - PULMONARY Hx Respiratory Disorders: Yes Hx Chronic Obstructive Pulmonary Disease (COPD): Yes - NEUROLOGICAL Hx Neurological Disorder: No - HEENT Hx HEENT Problems: Yes Hx Cataracts: Yes - RENAL Hx Chronic Kidney Disease: Yes Hx Renal Failure: Yes - ENDOCRINE/METABOLIC Hx Endocrine Disorders: No - HEMATOLOGICAL/ONCOLOGICAL Hx Blood Disorders: Yes Hx Anemia: Yes - INTEGUMENTARY Hx Dermatological Problems: Yes Hx Cellulitis: Yes - MUSCULOSKELETAL/RHEUMATOLOGICAL Hx Musculoskeletal Disorders: Yes Hx Arthritis: Yes Hx Falls: No Hx Unsteady Gait: Yes - GASTROINTESTINAL Hx Gastroesophageal Reflux: Yes - GENITOURINARY/GYNECOLOGICAL Hx Genitourinary Disorders: Yes Hx Prostate Problems: Yes - PSYCHIATRIC Hx Psychophysiologic Disorder: Yes Hx Anxiety: Yes Hx Depression: Yes Hx Substance Use: No - SURGICAL HISTORY Other/Comment: s/p skin graft to RT lower extremity - ANESTHESIA Hx Anesthesia Reactions: No Hx Malignant Hyperthermia: No Meds Allergies/Adverse Reactions: Allergies Allergy/AdvReac Type Severity Reaction Status Date / Time No Known Allergies Allergy Verified 07/27/18 16:02 - Medications Medications: Current Medications Acetaminophen (Tylenol 325mg Tab) 650 mg PO Q6H PRN PRN Reason: Fever >100.4 F Amlodipine Besylate (Norvasc) 5 mg PO DAILY [facility] Last Admin: 07/28/18 09:52 Dose: 5 mg Apixaban (Eliquis) 2.5 mg PO BID [facility]; Protocol Last Admin: 07/28/18 09:52 Dose: 2.5 mg Arformoterol Tartrate (Brovana) 15 mcg IH [id number] [facility] Last Admin: 07/28/18 07:14 Dose: Not Given Atorvastatin Calcium (Lipitor) 10 mg PO DIN [facility] Last Admin: 07/27/18 21:54 Dose: 10 mg Budesonide (Pulmicort Respules) 0.25 mg IH [id number] [facility] Last Admin: 07/28/18 07:14 Dose: Not Given Calcium Acetate (Phoslo) 667 mg PO WM [facility] Last Admin: 07/28/18 08:00 Dose: Not Given Sodium Chloride (Sodium Chloride 0.9%) 500 mls @ 60 mls/hr IV .[id number] [facility] Last Admin: 07/28/18 09:53 Dose: Not Given Tamsulosin HCl (Flomax) 0.4 mg PO DAILY [facility] Last Admin: 07/28/18 09:52 Dose: 0.4 mg Thiamine HCl (Vitamin B1 Tab) 100 mg PO DAILY [facility] Last Admin: 07/28/18 09:52 Dose: 100 mg Physical Exam - Constitutional Appears: No Acute Distress - Head Exam Head Exam: ATRAUMATIC, NORMOCEPHALIC - Extremities Exam Additional comments: RLE focused exam: Unna boot applied yesterday in the wound care center was C/D/I, Unna boot left intact. RLE focused exam Examination yesterday in the wound care center: Vasc: DP/PT 2/4. Skin temperature warm to cool from proximal to distal WNL. Cap refill < 3 seconds to all digits. No edema noted to right leg at this time. Neuro: Epicritic and protective sensation grossly intact. Derm: Ulcer noted on the right lateral aspect of the leg with 100% granular base measuring 9.8 cmX 2 cm X 0.1cm. No pus, no purulent discharge or drainage, no clinical signs of infection. No periwound erythema. Moderate serous drainage noted. MSK: Minimal POP at the periwound site. ROM WNL at all major joints. Muscle power intact 5/5 in all major muscle groups. No other gross deformities noted - Neurological Exam Neurological exam: Alert, Oriented x3 - Psychiatric Exam Psychiatric exam: Normal Affect, Normal Mood Results - Vital Signs Recent Vital Signs: Last Vital Signs Temp 98.2 F 07/28/18 06:00 Pulse 87 07/28/18 06:00 Resp 18 07/28/18 06:00 BP 142/73 07/28/18 06:00 Pulse Ox 100 07/28/18 06:00 - Labs Result Diagrams: 07/27/18 16:30 07/27/18 16:30 Labs: Laboratory Results - last 24 hr 07/27/18 07/27/18 07/27/18 16:30 16:30 16:30 WBC 8.6 D RBC 3.45 L Hgb 9.7 L Hct 30.0 L MCV 87.0 MCH 28.1 MCHC 32.3 RDW 14.5 Plt Count 212 MPV 8.9 Neut % (Auto) 75.8 H Lymph % (Auto) 16.6 L Rock % (Auto) 5.9 Eos % (Auto) 1.6 Baso % (Auto) 0.1 Lymph # (Auto) 1.4 Rock # (Auto) 0.5 Eos # (Auto) 0.1 Baso # (Auto) 0.01 Absolute Neuts (auto) 6.50 PT 14.9 H INR 1.34 APTT 33.0 pO2 VBG pH VBG pCO2 VBG HCO3 VBG Total CO2 VBG O2 Sat (Calc) VBG Base Excess VBG Potassium Glucose Lactate FiO2 Sodium 133 Potassium 5.2 H Chloride 99 Carbon Dioxide 22 Anion Gap 18 BUN 53 H Creatinine 4.3 H Est GFR ( Amer) 16 Est GFR (Non-Af Amer) 13 POC Glucose (mg/dL) Random Glucose 125 H Calcium 9.2 Total Bilirubin 0.3 AST 43 ALT 10 Alkaline Phosphatase 305 H D Lactate Dehydrogenase 418 Total Creatine Kinase 23 L Troponin I < 0.01 D Total Protein 9.5 H Albumin 4.2 Globulin 5.3 Albumin/Globulin Ratio 0.8 L Venous Blood Potassium Urine Color Urine Appearance Urine pH Ur Specific [place] Urine Protein Urine Glucose (UA) Urine Ketones Urine Blood Urine Nitrate Urine Bilirubin Urine Urobilinogen Ur Leukocyte Esterase Urine RBC Urine WBC Ur Epithelial Cells Blood Type Antibody Screen BBK History Checked 07/27/18 07/27/18 07/27/18 16:48 17:00 18:48 WBC RBC Hgb Hct MCV MCH MCHC RDW Plt Count MPV Neut % (Auto) Lymph % (Auto) Rock % (Auto) Eos % (Auto) Baso % (Auto) Lymph # (Auto) Rock # (Auto) Eos # (Auto) Baso # (Auto) Absolute Neuts (auto) PT INR APTT pO2 28 L VBG pH 7.31 L VBG pCO2 45.0 VBG HCO3 22.7 VBG Total CO2 24.1 VBG O2 Sat (Calc) 60.6 VBG Base Excess -3.7 L VBG Potassium 5.0 Glucose 126 H Lactate 1.7 FiO2 21.0 Sodium 132.0 Potassium Chloride 99.0 Carbon Dioxide Anion Gap BUN Creatinine Est GFR ( Amer) Est GFR (Non-Af Amer) POC Glucose (mg/dL) Random Glucose Calcium Total Bilirubin AST ALT Alkaline Phosphatase Lactate Dehydrogenase Total Creatine Kinase Troponin I Total Protein Albumin Globulin Albumin/Globulin Ratio Venous Blood Potassium 5.0 Urine Color Yellow Urine Appearance Clear Urine pH 6.0 Ur Specific [place] 1.015 Urine Protein Trace H Urine Glucose (UA) Negative Urine Ketones Negative Urine Blood Negative Urine Nitrate Negative Urine Bilirubin Negative Urine Urobilinogen 0.2 Ur Leukocyte Esterase Negative Urine RBC None Urine WBC 2 - 5 Ur Epithelial Cells 4 - 5 Blood Type A POSITIVE Antibody Screen Negative BBK History Checked Patient has bt 07/28/18 06:41 WBC RBC Hgb Hct MCV MCH MCHC RDW Plt Count MPV Neut % (Auto) Lymph % (Auto) Rock % (Auto) Eos % (Auto) Baso % (Auto) Lymph # (Auto) Rock # (Auto) Eos # (Auto) Baso # (Auto) Absolute Neuts (auto) PT INR APTT pO2 VBG pH VBG pCO2 VBG HCO3 VBG Total CO2 VBG O2 Sat (Calc) VBG Base Excess VBG Potassium Glucose Lactate FiO2 Sodium Potassium Chloride Carbon Dioxide Anion Gap BUN Creatinine Est GFR ( Amer) Est GFR (Non-Af Amer) POC Glucose (mg/dL) 96 Random Glucose Calcium Total Bilirubin AST ALT Alkaline Phosphatase Lactate Dehydrogenase Total Creatine Kinase Troponin I Total Protein Albumin Globulin Albumin/Globulin Ratio Venous Blood Potassium Urine Color Urine Appearance Urine pH Ur Specific [place] Urine Protein Urine Glucose (UA) Urine Ketones Urine Blood Urine Nitrate Urine Bilirubin Urine Urobilinogen Ur Leukocyte Esterase Urine RBC Urine WBC Ur Epithelial Cells Blood Type Antibody Screen BBK History Checked Assessment & Plan - Assessment and Plan (Free Text) Assessment: 82 M with PMH of hypertension, COPD, gastritis, Renal impairment and history of DVT seen and evaluated for right lower leg wound. Plan: Patient seen and evaluated at bedside with Dr. Pham Plan discussed with Dr. Pham Charts, labs and vitals reviewed: Afebrile, absent leukocytosis Silvercell, DSD and Unna boot dressing applied yesterday in the wound care ce nter was C/D/I, Unna boot left intact. Wound Cx (06/08/2018): No growth. Right Leg MRI (05/04/2018); No evidence of OM. B/L POLLO/PVR (05/04/2018); Improved arterial waveform compared to the preinterven tional study, Left SFA and tibial disease. Continue management per medicine Podiatry will continue to follow the patient while in house Thank you for the consult - Date & Time Date: 07/28/18 Time: 10:41 <Van Pham - Last Filed: 07/29/18 14:03> Meds - Medications Medications: Current Medications Acetaminophen (Tylenol 325mg Tab) 650 mg PO Q6H PRN PRN Reason: Fever >100.4 F Last Admin: 07/29/18 06:07 Dose: 650 mg Amlodipine Besylate (Norvasc) 5 mg PO DAILY [facility] Last Admin: 07/29/18 09:30 Dose: 5 mg Arformoterol Tartrate (Brovana) 15 mcg IH [id number] [facility] Last Admin: 07/29/18 09:33 Dose: Not Given Atorvastatin Calcium (Lipitor) 10 mg PO DIN [facility] Last Admin: 07/28/18 16:51 Dose: 10 mg Calcium Acetate (Phoslo) 667 mg PO WM [facility] Last Admin: 07/29/18 12:51 Dose: Not Given Cyproheptadine HCl (Periactin) 4 mg PO TID [facility] Last Admin: 07/29/18 09:29 Dose: 4 mg Sodium Chloride (Sodium Chloride 0.45%) 1,000 mls @ 80 mls/hr IV .[id number] [facility] Stop: 07/29/18 22:00 Midazolam HCl (Versed Inj) 2 mg IVP ONCE ONE Stop: 07/29/18 11:11 Ondansetron HCl (Zofran Inj) 4 mg IVP Q6H PRN PRN Reason: Nausea/Vomiting Oxycodone/Acetaminophen (Percocet 5/325 Mg Tab) 1 tab PO Q4H PRN PRN Reason: Pain, moderate (4-7) Stop: 08/01/18 12:04 Tamsulosin HCl (Flomax) 0.4 mg PO DAILY [facility] Last Admin: 07/29/18 09:30 Dose: 0.4 mg Thiamine HCl (Vitamin B1 Tab) 100 mg PO DAILY [facility] Last Admin: 07/29/18 09:29 Dose: 100 mg Results - Vital Signs Recent Vital Signs: Last Vital Signs Temp 97.0 F L 07/29/18 13:20 Pulse 74 07/29/18 13:20 Resp 16 07/29/18 13:20 BP 144/84 07/29/18 13:20 Pulse Ox 100 07/29/18 13:20 - Labs Result Diagrams: 07/27/18 16:30 07/27/18 16:30 Attending/Attestation - Attestation I have personally seen and examined this patient.: Yes I have fully participated in the care of the patient.: Yes I have reviewed all pertinent clinical information: Yes
--- NOTE | 2018-07-28 13:52 | CT ---
Date of service: 07/27/2018 PROCEDURE: CT Chest without contrast HISTORY: sob COMPARISON: 04/07/2017 CT TECHNIQUE: Contiguous axial images were obtained through the chest without intravenous contrast enhancement. Sagittal and coronal reconstructions were performed. Radiation dose: Total exam DLP = 276.0 mGy-cm. This CT exam was performed using one or more of the following dose reduction techniques: Automated exposure control, adjustment of the mA and/or kV according to patient size, and/or use of iterative reconstruction technique. FINDINGS: LUNGS: There is a 9.8 mm nodule in the left upper lobe which previously measured 4.5 mm. This is suspicious for neoplastic lesion. There is some linear scarring in the right upper lobe which has increased since the previous study. There is a small scar in the left lung apex that is unchanged. Emphysematous changes are seen in the upper lobes bilaterally MEDIASTINUM: Unremarkable thoracic aorta. No aneurysm. Normal sized heart. Main pulmonary artery unremarkable. No vascular congestion. No lymphadenopathy. Aortic and coronary artery calcification. PLEURA: No pleural fluid. No pneumothorax. BONES: No fracture. No destructive lesion. UPPER ABDOMEN: Grossly unremarkable. OTHER FINDINGS: The report concurs with the preliminary [facility] report IMPRESSION: There is a 9.8 mm nodule in the left upper lobe which previously measured 4.5 mm. This is suspicious for a neoplastic lesion. There is some linear scarring in the right upper lobe which has increased since the previous study. There is a small scar in the left lung apex that is unchanged. Emphysematous changes are seen in the upper lobes bilaterally
--- NOTE | 2018-07-28 23:40 | PN ---
DATE: 07/28/2018 SUBJECTIVE: The patient is 82-year-old, seen and examined sitting in chair. Complaining of decreased appetite. No nausea or vomiting. No diarrhea. PHYSICAL EXAMINATION: GENERAL: He is awake, alert, oriented. Communicative. VITAL SIGNS: He is afebrile. Pulse 86, respirations 18, blood pressure 148/76. LUNGS: Bilateral fair flow. No rhonchi or crackle. HEART: S1, S2 audible. ABDOMEN: Soft, nontender. No rebound. No guarding. NEUROLOGIC: He is awake and alert. Able to communicate. EXTREMITIES: Bilateral legs no edema. Right terrazas is under dressing. LABORATORY DATA: His blood cultures are negative. Blood sugar is 96. He had CT scan of the chest done that shows 9.8 mm nodule in the left upper lobe which previously measured 4.5 mm. There is some linear scarring in the right upper lobe which has increased since previous study. ASSESSMENT AND PLAN: 1. Left upper lung mass. 2. Chronic obstructive pulmonary disease. 3. Hypertension. 4. History of leg deep venous thrombosis. 5. Right terrazas wound healing. PLAN: Request for Dr. Silver Dempsey for evaluation, possible biopsy. [facility] I will follow up the patient in a.m. Aquilino Garcia MD
[2018-07-29] MEDS: Sodium Chloride 0.9% 500 ML IV SCH (05:18)
[2018-07-29] MEDS: Arformoterol 15 mcg/2 ml Inh Sol IH SCH ×2 (09:33→19:34)
[2018-07-29] MEDS: Budesonide 0.25 mg/2 ml Inhal Susp UD IH SCH (09:33)
[2018-07-29] MEDS ORDERED: Lidocaine 1% Inj (20ml) ONE ×2 (10:05→11:44)
[2018-07-29] MEDS ORDERED: Midazolam 2 MG/2 ML VIAL ONE (10:06)
--- NOTE | 2018-07-29 10:35 | CP.PCM.PN ---
<Nikolas Duran - Last Filed: 07/29/18 10:32> Subjective - Date & Time of Evaluation Date of Evaluation: 07/29/18 Time of Evaluation: 10:32 - Subjective Subjective: Podiatry progress note for Dr. Pham 82 y/o M patient seen and evaluated for right lower leg wound. Patient states that he doesn't feel pain his ulcer site. He states that he feels better today. Patient denies any overnight N/V/F/C/SOB/CP. Patient denies any other pedal complaints at this time. Objective - Vital Signs/Intake and Output Vital Signs (last 24 hours): Temp Pulse Resp BP Pulse Ox 97.9 F 62 18 149/74 97 07/29/18 06:00 07/29/18 09:30 07/29/18 06:00 07/29/18 09:30 07/29/18 06:00 Intake and Output: 07/29/18 07/29/18 06:59 18:59 Intake Total 620 Output Total 851 Balance -231 - Medications Medications: Current Medications Acetaminophen (Tylenol 325mg Tab) 650 mg PO Q6H PRN PRN Reason: Fever >100.4 F Last Admin: 07/29/18 06:07 Dose: 650 mg Amlodipine Besylate (Norvasc) 5 mg PO DAILY [facility] Last Admin: 07/29/18 09:30 Dose: 5 mg Arformoterol Tartrate (Brovana) 15 mcg IH [id number] [facility] Last Admin: 07/29/18 09:33 Dose: Not Given Atorvastatin Calcium (Lipitor) 10 mg PO DIN [facility] Last Admin: 07/28/18 16:51 Dose: 10 mg Budesonide (Pulmicort Respules) 0.25 mg IH [id number] [facility] Last Admin: 07/29/18 09:33 Dose: Not Given Calcium Acetate (Phoslo) 667 mg PO WM [facility] Last Admin: 07/29/18 08:41 Dose: 667 mg Cyproheptadine HCl (Periactin) 4 mg PO TID [facility] Last Admin: 07/29/18 09:29 Dose: 4 mg Sodium Chloride (Sodium Chloride 0.9%) 500 mls @ 60 mls/hr IV .Q8H20M [facility] Last Admin: 07/29/18 05:18 Dose: 60 mls/hr Tamsulosin HCl (Flomax) 0.4 mg PO DAILY [facility] Last Admin: 07/29/18 09:30 Dose: 0.4 mg Thiamine HCl (Vitamin B1 Tab) 100 mg PO DAILY [facility] Last Admin: 07/29/18 09:29 Dose: 100 mg - Labs Labs: 07/27/18 16:30 07/27/18 16:30 PT 14.9 SECONDS (9.4-12.5) H 07/27/18 16:30 INR 1.34 07/27/18 16:30 APTT 33.0 Seconds (26.9-38.3) 07/27/18 16:30 - Constitutional Appears: Non-toxic, No Acute Distress - Head Exam Head Exam: ATRAUMATIC, NORMOCEPHALIC - Extremities Exam Additional comments: RLE focused exam: Unna boot applied yesterday in the wound care center was C/D/I, Unna boot left intact. Last RLE focused exam Examination in the wound care center: Vasc: DP/PT 2/4. Skin temperature warm to cool from proximal to distal WNL. Cap refill < 3 seconds to all digits. No edema noted to right leg at this time. Neuro: Epicritic and protective sensation grossly intact. Derm: Ulcer noted on the right lateral aspect of the leg with 100% granular base measuring 9.8 cmX 2 cm X 0.1cm. No pus, no purulent discharge or drainage, no clinical signs of infection. No periwound erythema. Moderate serous drainage noted. MSK: Minimal POP at the periwound site. ROM WNL at all major joints. Muscle power intact 5/5 in all major muscle groups. No other gross deformities noted x - Neurological Exam Neurological Exam: Alert, Awake, Oriented x3 - Psychiatric Exam Psychiatric exam: Normal Affect, Normal Mood Assessment and Plan - Assessment and Plan (Free Text) Assessment: 82 y/o M patient seen and evaluated for right lower leg wound. Plan: Patient seen and evaluated at bedside with Dr. Pham Plan discussed with Dr. Pham Charts, labs and vitals reviewed: Afebrile, absent leukocytosis Silvercell, DSD and Unna boot dressing applied in the wound care center was C/D/I, dressing boot left intact. Wound Cx (06/08/2018): No growth. Right Leg MRI (05/04/2018); No evidence of OM. B/L POLLO/PVR (05/04/2018); Improved arterial waveform compared to the preinterventional study, Left SFA and tibial disease. Continue management per medicine Podiatry will continue to follow the patient while in house <Van Pham - Last Filed: 07/29/18 14:01> Objective - Vital Signs/Intake and Output Vital Signs (last 24 hours): Temp Pulse Resp BP Pulse Ox 97.0 F L 74 16 144/84 100 07/29/18 13:20 07/29/18 13:20 07/29/18 13:20 07/29/18 13:20 07/29/18 13:20 Intake and Output: 07/29/18 07/29/18 06:59 18:59 Intake Total 620 250 Output Total 851 Balance -231 250 - Medications Medications: Current Medications Acetaminophen (Tylenol 325mg Tab) 650 mg PO Q6H PRN PRN Reason: Fever >100.4 F Last Admin: 07/29/18 06:07 Dose: 650 mg Amlodipine Besylate (Norvasc) 5 mg PO DAILY [facility] Last Admin: 07/29/18 09:30 Dose: 5 mg Arformoterol Tartrate (Brovana) 15 mcg IH [id number] [facility] Last Admin: 07/29/18 09:33 Dose: Not Given Atorvastatin Calcium (Lipitor) 10 mg PO DIN [facility] Last Admin: 07/28/18 16:51 Dose: 10 mg Calcium Acetate (Phoslo) 667 mg PO WM [facility] Last Admin: 07/29/18 12:51 Dose: Not Given Cyproheptadine HCl (Periactin) 4 mg PO TID [facility] Last Admin: 07/29/18 09:29 Dose: 4 mg Sodium Chloride (Sodium Chloride 0.45%) 1,000 mls @ 80 mls/hr IV .[id number] [facility] Stop: 07/29/18 22:00 Midazolam HCl (Versed Inj) 2 mg IVP ONCE ONE Stop: 07/29/18 11:11 Ondansetron HCl (Zofran Inj) 4 mg IVP Q6H PRN PRN Reason: Nausea/Vomiting Oxycodone/Acetaminophen (Percocet 5/325 Mg Tab) 1 tab PO Q4H PRN PRN Reason: Pain, moderate (4-7) Stop: 08/01/18 12:04 Tamsulosin HCl (Flomax) 0.4 mg PO DAILY [facility] Last Admin: 07/29/18 09:30 Dose: 0.4 mg Thiamine HCl (Vitamin B1 Tab) 100 mg PO DAILY [facility] Last Admin: 07/29/18 09:29 Dose: 100 mg - Labs Labs: 07/27/18 16:30 07/27/18 16:30 PT 14.9 SECONDS (9.4-12.5) H 07/27/18 16:30 INR 1.34 07/27/18 16:30 APTT 33.0 Seconds (26.9-38.3) 07/27/18 16:30 Attending/Attestation - Attestation I have personally seen and examined this patient.: Yes I have fully participated in the care of the patient.: Yes I have reviewed all pertinent clinical information, including history, physical exam and plan: Yes
[2018-07-29] MEDS ORDERED: Midazolam 2 MG/2 ML VIAL IVP ONE (11:10)
[2018-07-29] MEDS ORDERED: Sodium Chloride 0.45% 1,000 ML IV SCH (12:15)
--- NOTE | 2018-07-29 15:56 | PN ---
DATE: 07/29/2018 SUBJECTIVE: The patient is 82 years old, seen and examined. While his recovery, had lung mass biopsy done, developed pneumothorax, had chest tube placed, doing well, sleepy but arousable. PHYSICAL EXAMINATION VITAL SIGNS: He is afebrile, pulse 73, respirations 16, and blood pressure 96/61. LUNGS: Bilateral fair airflow. No rhonchi or crackles. HEART: S1 and S2 audible. ABDOMEN: Soft and nontender. No rebound. No guarding. NEUROLOGIC: The patient is sleepy, but arousable. LABORATORY DATA: Blood sugar is 96. ASSESSMENT 1. Left lung mass. 2. Chronic obstructive pulmonary disease. 3. Weight loss. 4. History of hypertension, currently hypotensive. 5. Chronic right leg ulcer, status post skin graft. 6. Renal insufficiency. PLAN: The patient will be observed and then transferred to Med-Surg and follow up biopsy report. We will follow up the patient in a.m. Aquilino Garcia MD
--- NOTE | 2018-07-29 19:42 | CT ---
PROCEDURE: CT guided left upper lobe lung biopsy. HISTORY: Suspicious 10 mm left upper lobe lung nodule. Smoker. Evaluate for malignancy PHYSICIAN(S): Silver Dempsey MD. TECHNIQUE: The relative risks and indications of the procedure were explained to the patient and consent obtained. The patient was placed right decubitus position on the CT scanner and preliminary images through the upper lungs obtained. Conscious sedation and monitoring were provided throughout the procedure by a nurse. There is a 10 mm noncalcified suspicious nodule in the left upper lobe medially.. A posterior approach was selected and the area prepped and draped in the usual sterile fashion. 1% Xylocaine was used to anesthetize the skin and soft tissues. A 19 gauge guiding needle was advanced into the 10 mm left upper lobe lung nodule. Its position was confirmed with CT. Using coaxial technique, multiple core biopsies were obtained. An enlarging pneumothorax was noted on the CT images during the procedure. The patient was mildly short of breath. Subsequently a left-sided chest tube was placed. IMPRESSION: 1. CT-guided left upper lobe lung biopsy as described above. 2. Enlarging left pneumothorax noted during the procedure. A pigtail chest tube was placed anteriorly.
[2018-07-29] MEDS: Oxycodone/Acetaminophen 5/325 mg Tab PO PRN (20:44)
[2018-07-29] MEDS ORDERED: cefTRIAXone 1 gm 1 GM/100 ML BAG IVPB STA (23:14)
[2018-07-29 23:56] LABS: BASO # 0.01 K/mm3 (0.0-2.0); BASO % 0.1 % (0.0-3.0); EOS # 0.2 (0.0-0.7); EOS % 2.5 % (1.5-5.0); HEMOGLOBIN 8.3 g/dL (14.0-18.0); LYMPH # 1.1 (1.2-3.4); MEAN CELL VOLUME 85.8 fl (80.0-105.0); MEAN CORPUSCULAR HEMOGLOBIN 28.1 pg (25.0-35.0); MEAN CORPUSCULAR HGB CONC 32.8 g/dl (31.0-37.0); MEAN PLATELET VOLUME 8.4 fl (7.0-11.0); MONO # 0.7 (0.1-0.6); MONO % 8.2 % (1.0-6.0); RBC 2.95 10^6/uL (3.5-6.1); RED CELL DISTRIBUTION WIDTH 14.2 % (11.5-14.5); WHITE BLOOD COUNT 8.1 10^3/uL (4.5-11.0)
[2018-07-30 00:11] LABS: CALCIUM 8.6 mg/dL (8.4-10.5)
[2018-07-30] MEDS ORDERED: Magnesium Sulfate 2 gm/50 ml 2 GM/50 ML BAG IVPB ONE (00:56)
[2018-07-30] MEDS: Arformoterol 15 mcg/2 ml Inh Sol IH SCH ×2 (07:55→19:27)
[2018-07-30] MEDS: cefTRIAXone 1 gm 1 GM/100 ML BAG IVPB SCH (09:12)
--- NOTE | 2018-07-30 10:01 | RAD ---
Date of service: 07/30/2018 HISTORY: lt chest tube COMPARISON: 07/27/2018 FINDINGS: LUNGS: No active pulmonary disease. PLEURA: No pleural effusion or pneumothorax. Left pleural pigtail catheter. CARDIOVASCULAR: No aortic atherosclerotic calcification present. Normal cardiac size. No pulmonary vascular congestion. OSSEOUS STRUCTURES: No significant abnormalities. VISUALIZED UPPER ABDOMEN: Normal. OTHER FINDINGS: None. IMPRESSION: Left pleural pigtail catheter. No pneumothorax.
--- NOTE | 2018-07-30 10:55 | CARD ---
APPROVED REPORT Date of service: 07/29/2018 EKG Measurement Heart [id number] <Conclusion> Sinus tachycardia Right bundle branch block Abnormal ECG
[2018-07-30] MEDS: Oxycodone/Acetaminophen 5/325 mg Tab PO PRN ×2 (11:20→21:00)
--- NOTE | 2018-07-30 13:08 | CP.PCM.PN ---
<Nikolas Duran - Last Filed: 07/30/18 13:07> Subjective - Date & Time of Evaluation Date of Evaluation: 07/30/18 Time of Evaluation: 13:07 - Subjective Subjective: Podiatry progress note for Dr. Pham 82 y/o M patient seen and evaluated for right lower leg wound. Patient states that he doesn't feel pain his ulcer site. He states that he feels better today. Patient denies any overnight N/V/F/C/SOB/CP. Patient denies any other pedal complaints at this time. Objective - Vital Signs/Intake and Output Vital Signs (last 24 hours): Temp Pulse Resp BP Pulse Ox 97.7 F 91 H 18 117/64 100 07/30/18 06:00 07/30/18 06:00 07/30/18 06:00 07/30/18 06:00 07/30/18 06:00 Intake and Output: 07/30/18 07/30/18 06:59 18:59 Intake Total 1540 Output Total 350 Balance 1190 - Medications Medications: Current Medications Acetaminophen (Tylenol 325mg Tab) 650 mg PO Q6H PRN PRN Reason: Fever >100.4 F Last Admin: 07/29/18 22:05 Dose: 650 mg Amlodipine Besylate (Norvasc) 5 mg PO DAILY [facility] Last Admin: 07/30/18 09:13 Dose: 5 mg Arformoterol Tartrate (Brovana) 15 mcg IH [id number] [facility] Last Admin: 07/30/18 07:55 Dose: Not Given Atorvastatin Calcium (Lipitor) 10 mg PO DIN [facility] Last Admin: 07/29/18 16:59 Dose: 10 mg Calcium Acetate (Phoslo) 667 mg PO WM [facility] Last Admin: 07/30/18 09:13 Dose: 667 mg Cyproheptadine HCl (Periactin) 4 mg PO TID [facility] Last Admin: 07/30/18 09:13 Dose: 4 mg Ceftriaxone Sodium (Rocephin 1 Gram Ivpb) 1 gm in 100 mls @ 100 mls/hr IVPB DAILY [facility]; Protocol Last Admin: 07/30/18 09:12 Dose: 100 mls/hr Azithromycin (Zithromax 500mg In Ns) 500 mg in 250 mls @ 167 mls/hr IVPB DAILY [facility]; Protocol Ondansetron HCl (Zofran Inj) 4 mg IVP Q6H PRN PRN Reason: Nausea/Vomiting Oxycodone/Acetaminophen (Percocet 5/325 Mg Tab) 1 tab PO Q4H PRN PRN Reason: Pain, moderate (4-7) Stop: 08/01/18 12:04 Last Admin: 07/30/18 11:20 Dose: 1 tab Tamsulosin HCl (Flomax) 0.4 mg PO DAILY [facility] Last Admin: 07/30/18 09:13 Dose: 0.4 mg Thiamine HCl (Vitamin B1 Tab) 100 mg PO DAILY [facility] Last Admin: 07/30/18 09:14 Dose: 100 mg - Labs Labs: 07/29/18 23:10 07/29/18 23:10 PT 14.9 SECONDS (9.4-12.5) H 07/27/18 16:30 INR 1.34 07/27/18 16:30 APTT 33.0 Seconds (26.9-38.3) 07/27/18 16:30 - Constitutional Appears: No Acute Distress - Head Exam Head Exam: ATRAUMATIC, NORMOCEPHALIC - Extremities Exam Additional comments: RLE focused exam: Unna boot applied yesterday in the wound care center was C/D/I, Unna boot left intact. Last RLE focused exam Examination in the wound care center: Vasc: DP/PT 2/4. Skin temperature warm to cool from proximal to distal WNL. Cap refill < 3 seconds to all digits. No edema noted to right leg at this time. Neuro: Epicritic and protective sensation grossly intact. Derm: Ulcer noted on the right lateral aspect of the leg with 100% granular base measuring 9.8 cmX 2 cm X 0.1cm. No pus, no purulent discharge or drainage, no clinical signs of infection. No periwound erythema. Moderate serous drainage noted. MSK: Minimal POP at the periwound site. ROM WNL at all major joints. Muscle power intact 5/5 in all major muscle groups. No other gross deformities noted - Neurological Exam Neurological Exam: Alert, Awake, Oriented x3 - Psychiatric Exam Psychiatric exam: Normal Affect, Normal Mood Assessment and Plan - Assessment and Plan (Free Text) Assessment: 82 y/o M patient seen and evaluated for right lower leg wound. Plan: Patient seen and evaluated at bedside with Dr. Pham Plan discussed with Dr. Pham Charts, labs and vitals reviewed: Afebrile, absent leukocytosis Silvercell, DSD and Unna boot dressing applied in the wound care center was C/D/I, dressing boot left intact. Wound Cx (06/08/2018): No growth. Right Leg MRI (05/04/2018); No evidence of OM. B/L POLLO/PVR (05/04/2018); Improved arterial waveform compared to the preinterventional study, Left SFA and tibial disease. Continue management per medicine Podiatry will continue to follow the patient while in house <Van Pham - Last Filed: 07/30/18 14:06> Objective - Vital Signs/Intake and Output Vital Signs (last 24 hours): Temp Pulse Resp BP Pulse Ox 97.7 F 91 H 18 117/64 100 07/30/18 06:00 07/30/18 06:00 07/30/18 06:00 07/30/18 06:00 07/30/18 06:00 Intake and Output: 07/30/18 07/30/18 06:59 18:59 Intake Total 1540 Output Total 350 Balance 1190 - Medications Medications: Current Medications Acetaminophen (Tylenol 325mg Tab) 650 mg PO Q6H PRN PRN Reason: Fever >100.4 F Last Admin: 07/29/18 22:05 Dose: 650 mg Amlodipine Besylate (Norvasc) 5 mg PO DAILY [facility] Last Admin: 07/30/18 09:13 Dose: 5 mg Arformoterol Tartrate (Brovana) 15 mcg IH [id number] [facility] Last Admin: 07/30/18 07:55 Dose: Not Given Atorvastatin Calcium (Lipitor) 10 mg PO DIN [facility] Last Admin: 07/29/18 16:59 Dose: 10 mg Calcium Acetate (Phoslo) 667 mg PO WM [facility] Last Admin: 07/30/18 09:13 Dose: 667 mg Cyproheptadine HCl (Periactin) 4 mg PO TID [facility] Last Admin: 07/30/18 09:13 Dose: 4 mg Ceftriaxone Sodium (Rocephin 1 Gram Ivpb) 1 gm in 100 mls @ 100 mls/hr IVPB DAILY [facility]; Protocol Last Admin: 07/30/18 09:12 Dose: 100 mls/hr Azithromycin (Zithromax 500mg In Ns) 500 mg in 250 mls @ 167 mls/hr IVPB DAILY [facility]; Protocol Ondansetron HCl (Zofran Inj) 4 mg IVP Q6H PRN PRN Reason: Nausea/Vomiting Oxycodone/Acetaminophen (Percocet 5/325 Mg Tab) 1 tab PO Q4H PRN PRN Reason: Pain, moderate (4-7) Stop: 08/01/18 12:04 Last Admin: 07/30/18 11:20 Dose: 1 tab Tamsulosin HCl (Flomax) 0.4 mg PO DAILY [facility] Last Admin: 07/30/18 09:13 Dose: 0.4 mg Thiamine HCl (Vitamin B1 Tab) 100 mg PO DAILY [facility] Last Admin: 07/30/18 09:14 Dose: 100 mg - Labs Labs: 07/29/18 23:10 07/29/18 23:10 PT 14.9 SECONDS (9.4-12.5) H 07/27/18 16:30 INR 1.34 07/27/18 16:30 APTT 33.0 Seconds (26.9-38.3) 07/27/18 16:30 Attending/Attestation - Attestation I have personally seen and examined this patient.: Yes I have fully participated in the care of the patient.: Yes I have reviewed all pertinent clinical information, including history, physical exam and plan: Yes
--- NOTE | 2018-07-30 13:50 | PN ---
DATE: 07/30/2018 SUBJECTIVE: The patient is 82-year-old, who was brought in because of not doing well and losing weight. He was having intermittent cough, productive. Had CT scan of the chest done that shows left upper lobe mass. The patient underwent CT-guided biopsy, had pneumothorax and was having chest tube and that was being removed this morning. PHYSICAL EXAMINATION: GENERAL: Looks comfortable. No nausea or vomiting. No diarrhea. VITAL SIGNS: His spiked fever of 100.9, pulse 91, respiration 18, and blood pressure 117/64. LUNGS: Bilateral fair airflow. Few soft crackle in upper lung region. HEART: S1 and S2 audible. ABDOMEN: Soft and nontender. No rebound. No guarding. NEUROLOGIC: The patient is awake and alert, able to communicate. LABORATORY DATA: Yesterday, his sodium 133, potassium 5.4, chloride 103, CO2 of 20, BUN 46, and creatinine 3.2. Blood sugar of 102. His urine is positive for gram-negative rods. EKG shows sinus tachycardia. ASSESSMENT: 1. Left upper lung mass. 2. Status post pneumothorax. 3. Failure to thrive. 4. History of deep venous thrombosis. 5. right terrazas ulcer, status post skin grafting. 6. Renal failure. PLAN: Currently, the patient is on Brovana. He is on Flomax. We will continue on Lipitor. He is on amlodipine and Percocet as needed. Started on cyproheptadine. Because of spiking fever, he was given Rocephin last night. We will continue that, continue him on Zithromax. We will follow up and I spoke to the pathologist. We will get report for his CT-guided biopsy report and make disposition plan. Aquilino Garcia MD
[2018-07-30] MEDS: Azithromycin 500MG/NS 250ml 500 MG/250 ML BAG IVPB SCH (18:22)
[2018-07-31] MEDS: Arformoterol 15 mcg/2 ml Inh Sol IH SCH (07:33)
[2018-07-31] MEDS: cefTRIAXone 1 gm 1 GM/100 ML BAG IVPB SCH (09:34)
[2018-07-31] MEDS: Azithromycin 500MG/NS 250ml 500 MG/250 ML BAG IVPB SCH (09:34)
--- NOTE | 2018-07-31 10:23 | CP.PCM.PN ---
<Nikolas Duran - Last Filed: 07/31/18 10:20> Subjective - Date & Time of Evaluation Date of Evaluation: 07/31/18 Time of Evaluation: 10:20 - Subjective Subjective: Podiatry progress note for Dr. Pahm 82 y/o M patient seen and evaluated for right lower leg wound. Patient states that he doesn't feel any pain his ulcer site. He states that he feels good today. Patient denies any overnight N/V/F/C/SOB/CP. Patient denies any other pedal complaints at this time. Objective - Vital Signs/Intake and Output Vital Signs (last 24 hours): Temp Pulse Resp BP Pulse Ox 98.8 F 98 H 18 141/68 97 07/31/18 07:30 07/31/18 09:32 07/31/18 07:30 07/31/18 09:32 07/31/18 07:30 Intake and Output: 07/31/18 07/31/18 06:59 18:59 Intake Total 540 Output Total 250 Balance 290 - Medications Medications: Current Medications Acetaminophen (Tylenol 325mg Tab) 650 mg PO Q6H PRN PRN Reason: Fever >100.4 F Last Admin: 07/31/18 01:11 Dose: 650 mg Amlodipine Besylate (Norvasc) 5 mg PO DAILY [facility] Last Admin: 07/31/18 09:32 Dose: 5 mg Arformoterol Tartrate (Brovana) 15 mcg IH [id number] [facility] Last Admin: 07/31/18 07:33 Dose: Not Given Atorvastatin Calcium (Lipitor) 10 mg PO DIN [facility] Last Admin: 07/30/18 18:22 Dose: 10 mg Calcium Acetate (Phoslo) 667 mg PO WM [facility] Last Admin: 07/31/18 09:33 Dose: 667 mg Cyproheptadine HCl (Periactin) 4 mg PO TID [facility] Last Admin: 07/31/18 09:33 Dose: 4 mg Ceftriaxone Sodium (Rocephin 1 Gram Ivpb) 1 gm in 100 mls @ 100 mls/hr IVPB DAILY [facility]; Protocol Stop: 08/03/18 10:59 Last Admin: 07/31/18 09:34 Dose: 100 mls/hr Azithromycin (Zithromax 500mg In Ns) 500 mg in 250 mls @ 167 mls/hr IVPB DAILY [facility]; Protocol Last Admin: 07/31/18 09:34 Dose: 167 mls/hr Ondansetron HCl (Zofran Inj) 4 mg IVP Q6H PRN PRN Reason: Nausea/Vomiting Oxycodone/Acetaminophen (Percocet 5/325 Mg Tab) 1 tab PO Q4H PRN PRN Reason: Pain, moderate (4-7) Stop: 08/01/18 12:04 Last Admin: 07/30/18 21:00 Dose: 1 tab Tamsulosin HCl (Flomax) 0.4 mg PO DAILY [facility] Last Admin: 07/31/18 09:32 Dose: 0.4 mg Thiamine HCl (Vitamin B1 Tab) 100 mg PO DAILY [facility] Last Admin: 07/31/18 09:33 Dose: 100 mg - Labs Labs: 07/29/18 23:10 07/29/18 23:10 PT 14.9 SECONDS (9.4-12.5) H 07/27/18 16:30 INR 1.34 07/27/18 16:30 APTT 33.0 Seconds (26.9-38.3) 07/27/18 16:30 - Constitutional Appears: Well, Non-toxic, No Acute Distress - Head Exam Head Exam: ATRAUMATIC, NORMOCEPHALIC - Extremities Exam Additional comments: RLE focused exam: Vasc: DP/PT 2/4. Skin temperature warm to cool from proximal to distal WNL. Cap refill < 3 seconds to all digits. No edema noted to right leg at this time. Neuro: Epicritic and protective sensation grossly intact. Derm: Ulcer noted on the right lateral aspect of the leg with 100% granular base. measuring 8.5 cmX 1.8 cm X 0.1cm. No pus, no purulent discharge or drainage, no clinical signs of infection. No periwound erythema. Moderate serous drainage noted. MSK: No Ppain on palpating the periwound site. ROM WNL at all major joints. Muscle power intact 5/5 in all major muscle groups. No other gross deformities noted - Neurological Exam Neurological Exam: Alert, Awake, Oriented x3 - Psychiatric Exam Psychiatric exam: Normal Affect, Normal Mood Assessment and Plan - Assessment and Plan (Free Text) Assessment: 82 y/o M patient seen and evaluated for right lower leg wound. Plan: Patient seen and evaluated at bedside with Dr. Pham Plan discussed with Dr. Pham Charts, labs and vitals reviewed: Afebrile, absent leukocytosis Ulcer dressed using Maxorb, Adaptic, DSD and Arnie bandage. Wound Cx (06/08/2018): No growth. Right Leg MRI (05/04/2018); No evidence of OM. B/L POLLO/PVR (05/04/2018); Improved arterial waveform compared to the preinterventional study, Left SFA and tibial disease. Continue management per medicine. Continue the Abx as per ID. Podiatry will continue to follow the patient while in house. Patient to follow up with Dr. Pham in the wound care center upon discharge. <Van Pham - Last Filed: 08/03/18 08:10> Objective - Vital Signs/Intake and Output Vital Signs (last 24 hours): Temp Pulse Resp BP Pulse Ox 98.7 F 110 H 16 148/83 95 07/31/18 14:00 07/31/18 14:00 07/31/18 14:00 07/31/18 14:00 07/31/18 14:00 - Labs Labs: 07/29/18 23:10 07/29/18 23:10 PT 14.9 SECONDS (9.4-12.5) H 07/27/18 16:30 INR 1.34 07/27/18 16:30 APTT 33.0 Seconds (26.9-38.3) 07/27/18 16:30 Attending/Attestation - Attestation I have personally seen and examined this patient.: Yes I have fully participated in the care of the patient.: Yes I have reviewed all pertinent clinical information, including history, physical exam and plan: Yes
[2018-07-31 14:58] VITALS: BP 148/83; PULSE 110; RESP 16; TEMP 98.7; O2SAT 95
--- NOTE | 2018-07-31 17:42 | DS ---
HISTORY OF PRESENT ILLNESS: The patient is a 82-year-old, who came in after he was evaluated by Dr. Pham who found him to be not eating well, malnourished, and losing weight, so he was admitted for further workup. His CT scan of the chest shows left upper lung mass, that was biopsied by Dr. Silver Dempsey and shows non-small cell carcinoma of the lung, preliminary as I got report from Dr. Lerma, the pathologist. The patient was started on cyproheptadine and his oral intake seems to be somewhat better. He is anxious to go home. PHYSICAL EXAMINATION: VITAL SIGNS: He is afebrile, pulse 98, respirations 18, and blood pressure 141/68. LUNGS: Bilateral fair airflow. No rhonchi or crackle. HEART: S1 and S2 audible. No murmur. ABDOMEN: Soft and nontender. No rebound. No guarding. NEUROLOGIC: The patient is awake and alert, able to communicate. EXTREMITIES: His right leg is in the dressing. ASSESSMENT AND PLAN: 1. Significant weight loss. 2. 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 3. Status post pneumothorax, had chest tube placed, that is resolved. 4. Chronic right leg ulcer, status post skin graft. 5. History of right leg deep venous thrombosis. 6. History of hypertension. 7. History of alcohol abuse. 8. History of chronic obstructive pulmonary disease, chronic smoker recently quit. PLAN: The patient is clinically stable. Spoke to the patient's daughter, Daisy. The patient will be discharged today. He will follow with Dr. Art for further plan about the care for his newly diagnosed left upper lung cancerous mass. Aquilino Garcia MD
== END 2018-07-31 18:00 | disposition home health service (06) | DRG 181 ==
LOC: ED 15:52 → ERH 18:54 → 5RNO 23:38
PROVIDERS: ADMIT Internal Medicine; ATTEND Internal Medicine
PROC: BB281ZZ Computerized Tomography (CT Scan) of Left Tracheobronchial Tree using Low Osmolar Contrast (ICD-10-PCS; 2018-07-29)
PROC: 0W9B30Z Drainage of Left Pleural Cavity with Drainage Device, Percutaneous Approach (ICD-10-PCS; 2018-07-29)
PROC: 0BBG3ZX Excision of Left Upper Lung Lobe, Percutaneous Approach, Diagnostic (ICD-10-PCS; principal; 2018-07-29 10:00)
DX: C34.12 Malignant neoplasm of upper lobe, left bronchus or lung (principal); E46 Unspecified protein-calorie malnutrition; I13.0 Hypertensive heart and chronic kidney disease with heart failure and stage 1 through stage 4 chronic kidney disease, or unspecified chronic kidney disease; L97.819 Non-pressure chronic ulcer of other part of right lower leg with unspecified severity; J93.9 Pneumothorax, unspecified; E86.0 Dehydration; R62.7 Adult failure to thrive; N18.9 Chronic kidney disease, unspecified; I50.9 Heart failure, unspecified; I70.202 Unspecified atherosclerosis of native arteries of extremities, left leg; J44.9 Chronic obstructive pulmonary disease, unspecified; K21.9 Gastro-esophageal reflux disease without esophagitis; Z79.899 Other long term (current) drug therapy; Z86.14 Personal history of Methicillin resistant Staphylococcus aureus infection; Z86.718 Personal history of other venous thrombosis and embolism; Z87.891 Personal history of nicotine dependence; Y84.8 Other medical procedures as the cause of abnormal reaction of the patient, or of later complication, without mention of misadventure at the time of the procedure